=== PATIENT | male | born 1980 | race Caucasian/White ===

== ENCOUNTER 2016-11-24 19:24 | Emergency (ER) | payer OTHER ==
[~2016-11-24] VITALS: Ht 175.3 cm; Wt 99.8 kg
[~2016-11-24 19:24] MED LIST: ALPRAZOLAM0.5 MG PO; AZITHROMYCIN500 MG PO; BACTRIM DS TAB1 EACH PO; BENZTROPINE ME0.5 MG PO; BENZTROPINE MESY1 MG PO; BUSPIRONE HCL10 MG PO; CEPHALEXIN500 MG PO; CHLORPROMAZINE100 MG PO; CIPRO500 MG PO; CIPROFLOXACIN500 MG PO; CITALOPRAM HBR10 MG PO; CITALOPRAM HBR20 MG PO; CLONAZEPAM1 MG PO; CLONIDINE HCL0.2 MG PO; CLONIDINE HCL0.3 MG PO; COGENTIN1 MG/ML PO; DEPAKOTE500 MG PO; DIPHENHYDRAMINE50 MG PO; DIVALPROEX SOD500 MG PO; FIBER500 MG PO; FLUCONAZOLE150 MG PO; HYDROXYZINE HCL25 MG PO; IBUPROFEN600 MG PO; IBUPROFEN800 MG PO; KEFLEX500 MG PO; LATUDA40 MG PO; LEVAQUIN750 MG PO; LISINOPRIL5 MG PO; LITHIUM CARBON300 M1 PO; LITHIUM CARBON300 MG PO; MACROBID 100 M100 MG PO; NAPROXEN500 MG PO; OLANZAPINE10 MG PO; OMEPRAZOLE20 MG PO; PROZAC20 MG PO; QUDEXY XR25 MG PO; QUETIAPINE FUM100 MG PO; TOPAMAX100 MG PO; TOPIRAMATE ER25 MG PO; TRAMADOL HCL50 MG PO; TUMS200 MG PO; TYLENOL325 MG PO; ULTRAM50 MG PO; VITAMIN D250000 UNIT PO; XANAX0.5 MG PO; XARELTO15 MG; ZITHROMAX250 MG PO; ZYPREXA10 MG PO; [UNRECOGNIZED DRUG - OTHER] MC
== END 2016-11-25 01:07 | disposition home or self-care (01) ==
LOC: ED 19:24
DX: Z00.8 Encounter for other general examination (principal); I10 Essential (primary) hypertension; F31.9 Bipolar disorder, unspecified; F32.9 Major depressive disorder, single episode, unspecified; Z88.8 Allergy status to other drugs, medicaments and biological substances; Z79.899 Other long term (current) drug therapy
CPT/HCPCS: 36415; 80053; 80176; 81001; 84443; 85025; 99283; G0480

== ENCOUNTER 2016-12-03 13:02 | Emergency (ER) | payer OTHER ==
[~2016-12-03] VITALS: Ht 175.3 cm; Wt 99.8 kg
--- NOTE | 2016-12-04 07:15 | EKG ---
[facility] [address] [facility] [place], [place] [address] Signed Normal sinus rhythm Normal ECG When compared with ECG of 26-MAR-2016 18:13, No significant change was found Confirmed by OLGA LIDIA JIMENEZ MD ([id number]) on 12/04/2016 7:14:42 AM Electronically Signed By: OLGA LIDIA JIMENEZ MD 12/04/16 0715 PATIENT NAME: AALIYAH JASSO ION Electrocardiogram DATE OF : 78 PHYSICIAN: OLGA LIDIA JIMENEZ MD REPORT #: [id number] REPORT IS CONFIDENTIAL AND NOT TO BE RELEASED WITHOUT AUTHORIZATION
== END 2016-12-03 14:39 | disposition home or self-care (01) ==
LOC: ED 13:02
DX: R53.83 Other fatigue (principal); F22 Delusional disorders; I10 Essential (primary) hypertension; F31.9 Bipolar disorder, unspecified; F41.9 Anxiety disorder, unspecified; F25.9 Schizoaffective disorder, unspecified; F17.200 Nicotine dependence, unspecified, uncomplicated; Z88.1 Allergy status to other antibiotic agents; Z88.8 Allergy status to other drugs, medicaments and biological substances; Z88.2 Allergy status to sulfonamides; Z79.899 Other long term (current) drug therapy
CPT/HCPCS: 81001; 93005; 93010; 99283

== ENCOUNTER 2017-02-18 20:19 | Emergency (ER) | payer OTHER ==
[~2017-02-18] VITALS: Ht 175.3 cm; Wt 99.8 kg
--- OUTSIDE RECORDS SUMMARY | 2017-02-18 20:21 | XMS ---
Demographics + + + | Address | [address] [place] [address] | | | [facility] | | | [place] [address] | + + + | Preferred Language | Unknown | + + + | Marital Status | Unknown | + + + | Sikh Affiliation | Unknown | + + + | Race | Unknown | + + + | Ethnic Group | Unknown | + + + Author + + + | Author | [facility] | + + + | Organization | [facility] | + + + | Address | [address] | | | [place] [address] | + + + | Phone | | + + + Care Team Providers + + + + | Care Professor Of Voice Name | Role | Phone | + + + + Unavailable | Unavailable | + + + + PROBLEMS +---------+ + + +--------+ + + | Type | Condition | ICD9-CM | [id number] | Onset | Condition | SNOMED | | | | Code | Code | Dates | Status | Code | +---------+ + + +--------+ + + | Problem | Ventral | 553.20 | | | Active | [id number] | | | hernia | | | | | | | | without | | | | | | | | obstructio | | | | | | | | n or | | | | | | | | gangrene | | | | | | +---------+ + + +--------+ + + | Problem | Pulmonary | 415.19 | | | Active | [id number] | | | embolism | | | | | | +---------+ + + +--------+ + + | Problem | Epididymal | 608.89 | | | Active | [id number] | | | cyst | | | | | | +---------+ + + +--------+ + + | Problem | Blood in | 608.82 | | | Active | 53239411 | | | semen | | | | | | +---------+ + + +--------+ + + | Problem | History of | V13.09 | | | Active | [id number] | | | | | | | | | | | neurogenic | | | | | | | | bladder | | | | | | +---------+ + + +--------+ + + | Problem | H/O | V12.79 | | | Active | [id number] | | | ventral | | | | | | | | hernia | | | | | | +---------+ + + +--------+ + + | Problem | PRIAPISM | 607.3 | | | Active | [id number] | +---------+ + + +--------+ + + ALLERGIES + + + + +--------+ | Substance | Reaction | Event Type | Date | Status | + + + + +--------+ | Betadine | Unknown | Drug Allergy | Dec, | Active | + + + + +--------+ | lamotrigine | Buddy Bass | Non Drug | Dec, | Active | | | Syndrome | Allergy | | | + + + + +--------+ | Sulfa | Scratchy throat | Non Drug | Dec, | Active | | | | Allergy | | | + + + + +--------+ SOCIAL HISTORY No smoking Hx information available PLAN OF CARE + +---------+ | Activity | Details | + +---------+ +---+ | | +---+ + + + | Follow Up | as scheduled with urologist in 2 days | | | Reason:null | + + + VITAL SIGNS + + + + | Height | 69 in | 2016-12-22 | + + + + | Weight | 230.8 lbs | 2016-12-22 | + + + + | BMI | 34.08 kg/m2 | 2016-12-22 | + + + + | Temperature | 99.0 degrees Fahrenheit | 2016-12-22 | + + + + | Heart Rate | 88 /min | 2016-12-22 | + + + + | Blood pressure systolic | 124 mm Hg | 2016-12-22 | + + + + | Blood pressure diastolic | 86 mm Hg | 2016-12-22 | + + + + MEDICATIONS + + + + +--------+ + +--------+ | Medicati | Instruct | Dosage | Frequenc | Start | End Date | Duration | Status | | on | ions | | y | Date | | | | + + + + +--------+ + +--------+ | Zyprexa | Orally | 1 tablet | 24h | | | | Active | | 10 MG | Once a | | | | | | | | | day | | | | | | | + + + + +--------+ + +--------+ RESULTS No Results PROCEDURES + + + + + | Procedure | Date Ordered | Related Diagnosis | Body Site | + + + + + | Est Level II | Dec 22, 2016 | | | | Limited | | | | + + + + + IMMUNIZATIONS No Known Immunizations"
[2017-02-18] MEDS ORDERED: LATUDA20 MG PO (20:31)
[2017-02-18] MEDS ORDERED: VYVANSE20 MG PO (20:32)
[2017-02-18] MEDS ORDERED: KEFLEX500 MG PO (22:20)
== END 2017-02-18 22:54 | disposition home or self-care (01) ==
LOC: ED 20:19
PROC: 0T9B70Z Drainage of Bladder with Drainage Device, Via Natural or Artificial Opening (ICD-10-PCS; principal; 2017-02-18)
DX: T19.1XXA Foreign body in bladder, initial encounter (principal); F15.10 Other stimulant abuse, uncomplicated; I10 Essential (primary) hypertension; F31.9 Bipolar disorder, unspecified; F41.9 Anxiety disorder, unspecified; F25.9 Schizoaffective disorder, unspecified; F17.200 Nicotine dependence, unspecified, uncomplicated; Z88.1 Allergy status to other antibiotic agents; Z88.8 Allergy status to other drugs, medicaments and biological substances; Z88.2 Allergy status to sulfonamides; Z91.048 Other nonmedicinal substance allergy status; Z79.899 Other long term (current) drug therapy
CPT/HCPCS: 36415; 51702; 76775; 80053; 81001; 85025; 87077; 87088; 87186; 99284

== ENCOUNTER 2017-03-07 05:15 | Emergency (ER) | payer OTHER ==
[~2017-03-07] VITALS: Ht 175.3 cm; Wt 108.9 kg
[~2017-03-07 05:15] MED LIST changes: +LATUDA20 MG PO; +VYVANSE20 MG PO
== END 2017-03-07 06:17 | disposition home or self-care (01) ==
LOC: ED 05:15
DX: T23.622A Corrosion of second degree of single left finger (nail) except thumb, initial encounter (principal); T32.0 Corrosions involving less than 10% of body surface; I10 Essential (primary) hypertension; F31.9 Bipolar disorder, unspecified; F41.9 Anxiety disorder, unspecified; F20.9 Schizophrenia, unspecified; F17.200 Nicotine dependence, unspecified, uncomplicated; Z87.440 Personal history of urinary (tract) infections; Z88.1 Allergy status to other antibiotic agents; Z88.2 Allergy status to sulfonamides; Z88.8 Allergy status to other drugs, medicaments and biological substances; Z88.9 Allergy status to unspecified drugs, medicaments and biological substances; Z59.0 Homelessness; Z79.899 Other long term (current) drug therapy; Y93.89 Activity, other specified; Y99.0 Civilian activity done for income or pay
CPT/HCPCS: 99282

== ENCOUNTER 2017-06-21 01:58 | Emergency (ER) | payer OTHER ==
[~2017-06-21] VITALS: Ht 175.3 cm; Wt 108.9 kg
[2017-08-23] MEDS ORDERED: KEFLEX500 MG PO (19:56)
== END 2017-06-21 03:18 | disposition left against medical advice (07) ==
LOC: ED 01:58
DX: Z53.21 Procedure and treatment not carried out due to patient leaving prior to being seen by health care provider (principal)

== ENCOUNTER 2017-08-12 02:23 | Emergency (ER) | payer OTHER ==
[~2017-08-12] VITALS: Ht 175.3 cm; Wt 99.8 kg
[2017-08-12] MEDS ORDERED: LAMICTAL (GREE1 EACH PO (02:35)
[2017-08-23] MEDS ORDERED: KEFLEX500 MG PO (19:56)
== END 2017-08-12 02:59 | disposition left against medical advice (07) ==
LOC: ED 02:23
DX: Z53.21 Procedure and treatment not carried out due to patient leaving prior to being seen by health care provider (principal)

== ENCOUNTER 2017-11-09 21:06 | Emergency (ER) | payer OTHER ==
[~2017-11-09] VITALS: Ht 175.3 cm; Wt 99.8 kg
[~2017-11-09 21:06] MED LIST changes: +LAMICTAL (GREE1 EACH PO
[2017-11-09] MEDS ORDERED: CEPHALEXIN500 MG PO (22:33)
== END 2017-11-09 22:48 | disposition home or self-care (01) ==
LOC: ED 21:06
DX: N39.0 Urinary tract infection, site not specified (principal); I10 Essential (primary) hypertension; F17.200 Nicotine dependence, unspecified, uncomplicated; Z88.1 Allergy status to other antibiotic agents; Z88.2 Allergy status to sulfonamides; Z88.8 Allergy status to other drugs, medicaments and biological substances
CPT/HCPCS: 81001; 99283

== ENCOUNTER 2017-12-28 18:57 | Emergency (ER) | payer OTHER ==
[~2017-12-28] VITALS: Ht 175.3 cm; Wt 99.8 kg
--- OUTSIDE RECORDS SUMMARY | ~2017-12-28 | XMS | Clinical Summary ---
Demographics + + + | Address | [address] | | | [place] [address] | + + + | Home Phone | | + + + | Preferred Language | Unknown | + + + | Marital Status | | + + + | Latter-Day Affiliation | Unknown | + + + | Race | Unknown | + + + | Ethnic Group | Unknown | + + + Author + + + | Author | [facility] | | | and [place] | + + + | Organization | [facility] | | | and [place] | + + + | Address | Unknown | + + + | Phone | Unavailable | + + + Support + + +---------+ + | Name | Relationship | Address | Phone | + + +---------+ + | None,Listed Per | ECON | Unknown | | | Patient | | | | + + +---------+ + Care Team Providers + +------+ + | Care Car Cooper Name | Role | Phone | + +------+ + | Fam Donnelly MD | PP | | + +------+ + Allergies + + + + + + | Active Allergy | Reactions | Severity | Noted | Comments | | | | | Date | | + + + + + + | Ciprofloxacin | Other (See Comments) | Low | 06/28/19 | Cough | | | | | 15 | | + + + + + + | Doxycycline | Hives, Rash | Medium | 06/28/19 | | | | | | 15 | | + + + + + + | Lamotrigine | Other (See Comments) | High | 06/28/19 | Jean-Paul huntley | | | | | 15 | syndrome | + + + + + + Current Medications + + +-------+---------+------+------+-------+ | Prescription | Sig. | Disp. | Refills | Star | End | Statu | | | | | | t | Date | s | | | | | | Date | | | + + +-------+---------+------+------+-------+ | | Take 1 tablet by | | | | | Activ | | diphenhydrAMINE-acet | mouth nightly as | | | | | e | | aminophen (TYLENOL | needed. | | | | | | | PM EXTRA STRENGTH) | | | | | | | | 25-500 MG TABS | | | | | | | + + +-------+---------+------+------+-------+ | lurasidone | Take 60 mg by mouth | | | | | Activ | | (LATUDA) 60 mg | daily (with | | | | | e | | tablet | breakfast). | | | | | | + + +-------+---------+------+------+-------+ Active Problems + + + | Problem | Noted Date | + + + | Chronic hepatitis C without mention of hepatic coma | 07/06/2014 | + + + + + | Overview: patient reports genotype 1b. | | ICD-10 Record update | + + + + + | Anxiety and depression | 07/06/2014 | + + + + + | Overview: Requiring hospitalization. He was recently | | released. | + + Family History + + +------+ + | Medical History | Relation | Name | Comments | + + +------+ + | Colon cancer | Father | | | + + +------+ + | Heart attack | Father | | | + + +------+ + | Colon cancer | Paternal | | | | | Uncle | | | + + +------+ + + +------+ + + | Relation | Name | Status | Comments | + +------+ + + | Father | | | heart attack | | | | (Age | | | | | 54) | | + +------+ + + | Mother | | Alive | | + +------+ + + | Paternal Uncle | | | | + +------+ + + Social History + + + +--------+------+ | Tobacco Use | Types | Packs/Day | Years | Date | | | | | Used | | + + + +--------+------+ | Current Every Day | Cigarettes | 1 | 2 | | | Smoker | | | | | + + + +--------+------+ + +---+---+---+ | Smokeless Tobacco: | | | | | Never Used | | | | + +---+---+---+ + + | Tobacco Cessation: Ready to Quit: No; Counseling Given: Yes | + + + + +---------+ + | Alcohol Use | Drinks/We | oz/Week | Comments | | | ek | | | + + +---------+ + | No [...] + + + | Blood Pressure | 140/86 | 02/20/20171810 PDT | + + + + | Pulse | 102 | 02/20/20171938 PDT | + + + + | Temperature | 37.7 C (99.8 F) | 02/20/2017 1809 PDT | + + + + | Respiratory Rate | 20 | 02/20/20171808 PDT | + + + + | Oxygen Saturation | 94% | 02/20/20171938 PDT | + + + + | Inhaled Oxygen | - | - | | Concentration | | | + + + + | Weight | 104.3 kg (230 lb) | 02/20/20171808 PDT | + + + + | Height | 177.8 cm (5' 10") | 02/20/20171808 PDT | + + + + | Body Mass Index | 33 | 02/20/20171808 PDT | + + + + Plan of Treatment + + + + + | Health Maintenance | Due Date | Last Done | Comments | + + + + + | Vaccine: | | | | | Dtap/Tdap/Td (1 - | 9 | | | | Tdap) | | | | + + + + + | Vaccine: | | | | | Pneumococcal 19-64 | 9 | | | | (PPSV23 only) Medium | | | | | Risk (1 of 1 - | | | | | PPSV23) | | | | + + + + + | Vaccine: Influenza | | | | | (#1) | 8 | | | + + + + + Results Not on filefrom Last 3 Months Insurance + +--------+ +--------+ +---------+ | Payer | Benefi | Subscriber | Type | Phone | Address | | | t Plan | ID | | | | | | / | | | | | | | Group | | | | | + +--------+ +--------+ +---------+ | [employer] | MODA | [id number] | Medica | [id number] | | MEDICAID HMO | HEALTH | | id | [id number] | | | | MDCD | | | | | | | [place] | | | | | + +--------+ +--------+ +---------+ + +--------+ +--------+ + + | Guarantor Name | Accoun | Relation to | Date | Phone | Billing Address | | | t Type | Patient | of | | | | | | | | | | + +--------+ +--------+ + + | PENG JASSO | Person | Self [birth year] | Home: | [address] | | [place] | [place] | | 1980 | [phone] [place] [address] | | | linda | | | [phone] | | + +--------+ +--------+ + +
--- OUTSIDE RECORDS SUMMARY | ~2017-12-28 | XMS | Clinical Summary ---
Demographics + + + | Address | [address] | | | [place] [address] | + + + | Home Phone | | + + + | Preferred Language | Unknown | + + + | Marital Status | | + + + | Zoroastrian Affiliation | Unknown | + + + | Race | Unknown | + + + | Ethnic Group | Unknown | + + + Author + + + | Author | [facility] | | | and [place] | + + + | Organization | [facility] | | | and [...] Team Providers + +------+ + | Care Editor Index Name | Role | Phone | + [...] | [employer] | MODA | [id number] | Medica | [phone] | | MEDICAID HMO | HEALTH [...] | 1980 | [phone] [place] [address] | | | linda | | | [phone] | | + +--------+ +--------+ + +
[2017-12-28] MEDS ORDERED: KEFLEX500 MG PO (21:08)
== END 2017-12-28 21:57 | disposition home or self-care (01) ==
LOC: ED 18:57
PROC: BT40ZZZ Ultrasonography of Bladder (ICD-10-PCS; principal; 2017-12-28)
DX: N39.0 Urinary tract infection, site not specified (principal); I10 Essential (primary) hypertension; F17.200 Nicotine dependence, unspecified, uncomplicated; Z88.2 Allergy status to sulfonamides; Z88.1 Allergy status to other antibiotic agents; Z88.8 Allergy status to other drugs, medicaments and biological substances
CPT/HCPCS: 51798; 81001; 96372; 99283; J0696

== ENCOUNTER 2018-06-25 22:20 | Emergency (ER) | payer OTHER ==
[~2018-06-25] VITALS: Ht 175.3 cm; Wt 99.8 kg
--- OUTSIDE RECORDS SUMMARY | 2018-06-25 22:22 | XMS ---
PreManage Notification: AALIYAH JASSO Security Shingle Carrier Events 2 event(s) in the past 18 months Most recent security events: Elopement at [facility] 08/12/2017 02:23 - Patient eloped before treatment completed. Details: LWBS Elopement at [facility] 06/21/2017 01:58 - Patient eloped before treatment completed. Details: LWBS CRITERIA MET - Group Notification - [facility] - Has Care Guidelines CARE PROVIDERS HARLEY JOSHI [facility] Current PHONE: [phone] [facility] Primary [facility] Current PHONE: [phone] Katie Norman Case or Station Mechanic Apprentice Current PHONE: [phone] [facility] Mental Health Provider 11/15/2016-Current HEALTH PHONE: [phone] Guidelines Source: [facility] Guidelines Date: 12/03/2016 Care Coordination: ENCOURAGE PATIENT TO USE PCP FOR FOLLOW UP AND NON-EMERGENT PROBLEMS. GIVE PATIENT THIS HEEL COMPRESSOR NAME AND NUMBER FOR HELP AND QUESTIONS. MARSHALL AMADOR TRAVELING FREIGHT AGENT [facility] [phone] Additional care guidelines exist for the following facilities: [facility] ( 01/27/2018 ) [facility] ( 05/12/2016 ) Care History Behavioral 12/03/2016 [facility] PT IS WORKING WITH [facility] -- ATTN: IVONNE DEXTER Medical/Surgical 11/03/2014 [facility] Smoker Methamphetamine abuse E.DJan VISIT COUNT (12 MO.) 5 [facility]. TOTAL 5 NOTE: Visits indicate total known visits. ED/UCC VISIT TRACKING (12 MO.) 06/25/2018 22:20 [facility] [place] TYPE: Emergency COMPLAINT: - CATH ISSUE 12/28/2017 18:57 [facility] [place] TYPE: Emergency COMPLAINT: - CATHETER ISSUES DIAGNOSES: - Allergy status to sulfonamides status - Urinary tract infection, site not specified - Allergy status to other drugs, medicaments and biological substances status - Nicotine dependence, unspecified, uncomplicated - Allergy status to other antibiotic agents status - Essential (primary) hypertension - Other specified disorders of penis 11/09/2017 21:07 [facility] [place] TYPE: Emergency COMPLAINT: - R FLANK PAIN DIAGNOSES: - Nicotine dependence, unspecified, uncomplicated - Allergy status to other drugs, medicaments and biological substances status - Essential (primary) hypertension - Allergy status to sulfonamides status - Unspecified abdominal pain - Urinary tract infection, site not specified - Allergy status to other antibiotic agents status 08/23/2017 17:30 [facility] [place] TYPE: Emergency COMPLAINT: - ABD PAIN DIAGNOSES: - Allergy status to other drugs, medicaments and biological substances status - Retention of urine, unspecified - Unspecified place in jail as the place of occurrence of the external cause - Allergy status to other antibiotic agents status - Allergy status to sulfonamides status - Nicotine dependence, unspecified, uncomplicated - Urinary tract infection, site not specified - Essential (primary) hypertension - Striking against or struck by other objects, initial encounter - Unspecified abdominal pain - Laceration without foreign body of other part of head, initial encounter - Other terminal worker (current) drug therapy 08/12/2017 02:23 [facility] [place] TYPE: Emergency COMPLAINT: - URINARY PROBLEMS DIAGNOSES: - Procedure and treatment not carried out due to patient leaving prior to being seen by health care provider INPATIENT VISIT TRACKING (12 MO.) No inpatient visits to display in this time frame [id number]
[2018-06-26] MEDS ORDERED: CIPRO500 MG PO (00:09)
== END 2018-06-26 00:20 | disposition home or self-care (01) ==
LOC: ED 22:20
PROC: 0T9B70Z Drainage of Bladder with Drainage Device, Via Natural or Artificial Opening (ICD-10-PCS; principal; 2018-06-26)
DX: N36.8 Other specified disorders of urethra (principal); N45.3 Epididymo-orchitis; I10 Essential (primary) hypertension; F31.9 Bipolar disorder, unspecified; F20.9 Schizophrenia, unspecified; F41.9 Anxiety disorder, unspecified; F17.200 Nicotine dependence, unspecified, uncomplicated; Z88.1 Allergy status to other antibiotic agents; Z88.2 Allergy status to sulfonamides; Z91.09 Other allergy status, other than to drugs and biological substances; Z91.048 Other nonmedicinal substance allergy status
CPT/HCPCS: 51702; 76870; 81001; 99284-25

== ENCOUNTER 2018-10-01 07:43 | Emergency (ER) | payer OTHER ==
--- OUTSIDE RECORDS SUMMARY | ~2018-10-01 | XMS | Clinical Summary ---
Demographics + + + | Address | [address] | | | [place] [address] | + + + | Home Phone | | + + + | Preferred Language | Unknown | + + + | Marital Status | | + + + | Protestant Affiliation | Unknown | + + + | Race | Unknown | + + + | Ethnic Group | Unknown | + + + Author + + + | Author | [facility] | | | and [place] | + + + | Organization | [facility] | | | and [...] Team Providers + +------+ + | Care Turbo Operator Name | Role | Phone | [...] | [employer] | MODA | [id number] | 06/22/19 | [phone] | | Medica [...] | 1981 | [phone] | [place] [address] | | | linda | | | 3 (Home) | | + +--------+ +--------+ + + Advance Directives Patient has advance care planning documents on file. For more information, please [facility] [place] [address]
--- OUTSIDE RECORDS SUMMARY | ~2018-10-01 | XMS | Clinical Summary ---
Demographics + + + | Address | [address] | | | [place] [address] | + + + | Home Phone | | + + + | Preferred Language | Unknown | + + + | Marital Status | | + + + | Christian Affiliation | Unknown | + + + | Race | Unknown | + + + | Ethnic Group | Unknown | + + + Author + + + | Author | [facility] | | | and [place] | + + + | Organization | [facility] | | | [...] + +------+ + | Care Director Of Regional Sales Name | Role | Phone | + [...] | [employer] | MODA | [id number] | 06/22/19 | [phone] | | Medica [...] | 1981 | [phone] | [place] [address] | | | linda | | | 3 (Home) | | + +--------+ +--------+ + + Advance Directives Patient has advance care planning documents on file. For more information, please [facility] [place] [address]
--- OUTSIDE RECORDS SUMMARY | 2018-10-01 07:46 | XMS ---
PreManage Notification: AALIYAH JASSO Security Sql Database Administrator Events 2 event(s) in the past 18 months Most recent security events: Elopement at [facility] 08/12/2017 02:23 - Patient eloped before treatment completed. Details: LWBS Elopement at [facility] 06/21/2017 01:58 - Patient eloped before treatment completed. Details: LWBS CRITERIA MET - Group Notification - [facility] - Has Care Guidelines CARE PROVIDERS HARLEY JOSHI [facility] Current PHONE: [phone] [facility] DAVEN[facility] Primary Care Current PHONE: [phone] Katie Norman Case or Brake Repair Supervisor Current PHONE: [phone] [facility] MENTAL Mental Health Provider 11/15/2016-Current HEALTH PHONE: [phone] Guidelines Source: [facility] Guidelines Date: 12/03/2016 Care Coordination: ENCOURAGE PATIENT TO USE PCP FOR FOLLOW UP AND NON-EMERGENT PROBLEMS. GIVE PATIENT THIS CUSTODIAL FOREMAN NAME AND NUMBER FOR HELP AND QUESTIONS. MARSHALL AMADOR BOOKKEEPING ASSISTANT [facility] [phone] Additional care guidelines exist for the following facilities: [facility] ( 01/27/2018 ) [facility] ( 05/12/2016 ) Care History Behavioral 12/03/2016 [facility] PT IS WORKING WITH [facility] -- ATTN: IVONNE DEXTER Medical/Surgical 11/03/2014 [facility] Smoker Methamphetamine abuse E.DJan VISIT COUNT (12 MO.) [facility] NOTE: Visits indicate total known visits. ED/UCC VISIT TRACKING (12 MO.) 10/01/2018 07:44 [facility] [place] TYPE: Emergency COMPLAINT: - COUGHING 06/25/2018 22:20 [facility] [place] TYPE: Emergency COMPLAINT: - CATH ISSUE DIAGNOSES: - Schizophrenia, unspecified - Allergy status to other antibiotic agents status - Anxiety disorder, unspecified - Other specified disorders of urethra - Nicotine dependence, unspecified, uncomplicated - Dysuria - Other nonmedicinal substance allergy status - Bipolar disorder, unspecified - Allergy status to sulfonamides status - Other allergy status, other than to drugs and biological substances - Essential (primary) hypertension - Epididymo-orchitis 12/28/2017 18:57 [facility] TYPE: Emergency COMPLAINT: - CATHETER ISSUES DIAGNOSES: - Allergy status to sulfonamides status - Urinary tract infection, site not specified - Allergy status to other drugs, medicaments and biological substances status - Nicotine dependence, unspecified, uncomplicated - Allergy status to other antibiotic agents status - Essential (primary) hypertension - Other specified disorders of penis 12/25/2017 00:[facility] TYPE: Emergency DIAGNOSES: - Urinary tract infection, site not specified 11/09/2017 21:07 [facility] TYPE: Emergency COMPLAINT: - R FLANK PAIN DIAGNOSES: - Nicotine dependence, unspecified, uncomplicated - Allergy status to other drugs, medicaments and biological substances status - Essential (primary) hypertension - Allergy status to sulfonamides status - Unspecified abdominal pain - Urinary tract infection, site not specified - Allergy status to other antibiotic agents status INPATIENT VISIT TRACKING (12 MO.) No inpatient visits to display in this time frame [id number]
== END 2018-10-01 07:50 | disposition left against medical advice (07) ==
LOC: ED 07:43
DX: R05 Cough (principal); Z53.21 Procedure and treatment not carried out due to patient leaving prior to being seen by health care provider

== ENCOUNTER 2018-10-13 16:38 | Emergency (ER) | payer OTHER ==
[~2018-10-13] VITALS: Ht 175.3 cm; Wt 99.8 kg
--- OUTSIDE RECORDS SUMMARY | ~2018-10-13 | XMS | Clinical Summary ---
Demographics + + + | Address | [address] | | | [place] [address] | + + + | Home Phone | | + + + | Preferred Language | Unknown | + + + | Marital Status | | + + + | Oriental Orthodox Affiliation | Unknown | + + + | Race | Unknown | + + + | Ethnic Group | Unknown | + + + Author + + + | Author | [facility] | | | and [place] | + + + | Organization | [facility] | | [...] Team Providers + +------+ + | Care Straight Cutter Name | Role | Phone | [...] + + +---------+------+------+-------+ | | Take 1 tablet by | | 0 | | | Activ | | diphenhydrAMINE-acet | mouth nightly as | | | | | e | | aminophen (TYLENOL | needed. | | | | | | | PM EXTRA STRENGTH) | | | | | | | | 25-500 MG TABS | | | | | | | + + + +---------+------+------+-------+ | lurasidone | Take 60 mg by mouth | | 0 | | | Activ | | (LATUDA) [...] Temperature | 37.7 C (99.8 F) | 02/20/20171808 PDT | + + + [...] Vaccine: Influenza | | | | | (Season Ended) | 9 | | | + + + + + Results Not on filefrom Last 3 Months Insurance + +--------+ +--------+ +---------+--------+ | Payer | Benefi | Subscriber | Effect | Phone | Address | Type | | | t Plan | ID | herbert | | | | | | / | | Dates | | | | | | Group | | | | | | + +--------+ +--------+ +---------+--------+ | [employer] | MODA | [id number] | 06/22/19 | [phone] | | Medica | | MEDICAID HMO | HEALTH | | 15-Pre | 1 | | id | | | [place]CD | | sent | | | | | | [place] | | | | | | + +--------+ +--------+ +---------+--------+ + +--------+ +--------+ + + | Guarantor Name | Accoun | Relation to | Date | Phone | Billing Address | | | t Type | Patient | of | | | | | | | | | | + +--------+ +--------+ + + | Peng Richardson | Person | Self | [birth year] | [address] | | [place] | felix/Alex | | 1981 | [phone] | [place] [address] | | | linda | | | 3 (Home) | | + +--------+ +--------+ + + Advance Directives Patient has advance care planning documents on file. For more information, please [facility] [address]
--- OUTSIDE RECORDS SUMMARY | ~2018-10-13 | XMS | Clinical Summary ---
Demographics + + + | Address | [address] | | | [place] [address] | + + + | Home Phone | | + + + | Preferred Language | Unknown | + + + | Marital Status | | + + + | Pentecostal Affiliation | Unknown | + + + | Race | Unknown | + + + | Ethnic Group | Unknown | + + + Author + + + | Author | [facility] | | | and Dioniana | + + + | Organization | [facility] | | | [...] Team Providers + +------+ + | Care Tree Inspector Name | Role | Phone | [...] | [employer] | [facility] | [id number] | 06/22/19 | [phone] | | Medica [...] | + +--------+ +--------+ + + | Pegn Richardson | Person | Self | [birth year] | [address] | | Steven | felix/Alex | | 1981 | [phone] | [place] [address] | | | linda | | | 3 (Home) | | + +--------+ +--------+ + + Advance Directives Patient has advance care planning documents on file. For more information, please contact:[facility] [place] [address]
--- OUTSIDE RECORDS SUMMARY | 2018-10-13 16:40 | XMS ---
PreManage Notification: AALIYAH JASSO Security Biochemistry Technician Events 3 event(s) in the past 18 months Most recent security events: Elopement at [facility] 10/01/2018 07:44 - Other Details: PATIENT LWOBS. Elopement at [facility] 08/12/2017 02:23 - Patient eloped before treatment completed. Details: LWBS Elopement at [facility] 06/21/2017 01:58 - Patient eloped before treatment completed. Details: LWBS CRITERIA MET - Group Notification - - Has Care Guidelines - - 2 Visits in 30 Days CARE PROVIDERS HARLEY JOSHI [facility] Current PHONE: [phone] [facility] DAVEN[facility] Primary Care Current PHONE: [phone] Katie Norman Case or Entry Level Assistant Manager Current PHONE: [phone] [facility] MENTAL Mental Health Provider 11/15/2016-Current HEALTH PHONE: [phone] Guidelines Source: [facility] Guidelines Date: 12/03/2016 Care Coordination: ENCOURAGE PATIENT TO USE PCP FOR FOLLOW UP AND NON-EMERGENT PROBLEMS. GIVE PATIENT THIS TEACHERS ASSISTANT NAME AND NUMBER FOR HELP AND QUESTIONS. MARSHALL AMADOR BANKING SUPERVISOR [facility] [phone] Additional care guidelines exist for the following facilities: [facility] ( 01/27/2018 ) [facility] ( 05/12/2016 ) Care History Behavioral 12/03/2016 [facility] PT IS WORKING WITH [facility] -- ATTN: IVONNE DEXTER Medical/Surgical 11/03/2014 [facility] Smoker Methamphetamine abuse E.DJan VISIT COUNT (12 MO.) [address] [facility] NOTE: Visits indicate total known visits. ED/UCC VISIT TRACKING (12 MO.) 10/13/2018 16:39 [facility] [place] TYPE: Emergency COMPLAINT: - LEG SWELLING,URINE PROBLEM 10/01/2018 07:44 [facility] [place] TYPE: Emergency COMPLAINT: - COUGHING/LWOBS 0745 DIAGNOSES: - Procedure and treatment not carried out due to patient leaving prior to being seen by health care provider - Cough 06/25/2018 22:20 [facility] [place] TYPE: Emergency [...] (primary) hypertension - Epididymo-orchitis 12/28/2017 18:57 [facility] [place] TYPE: Emergency COMPLAINT: - CATHETER ISSUES DIAGNOSES: - Allergy status to sulfonamides status - Urinary tract infection, site not specified - Allergy status to other drugs, medicaments and biological substances status - Nicotine dependence, unspecified, uncomplicated - Allergy status to other antibiotic agents status - Essential (primary) hypertension - Other specified disorders of penis 12/25/2017 00:46 [facility] [place] ([place]) TYPE: Emergency DIAGNOSES: - Urinary tract infection, site not specified 11/09/2017 21:[address] [facility] [place] TYPE: Emergency COMPLAINT: - R FLANK [...] visits to display in this time frame [id number]
== END 2018-10-13 17:45 | disposition home or self-care (01) ==
LOC: ED 16:38
DX: I87.8 Other specified disorders of veins (principal); I10 Essential (primary) hypertension; F17.200 Nicotine dependence, unspecified, uncomplicated; Z88.1 Allergy status to other antibiotic agents; Z88.2 Allergy status to sulfonamides; Z88.8 Allergy status to other drugs, medicaments and biological substances; Z91.048 Other nonmedicinal substance allergy status
CPT/HCPCS: 93970; 99283-25

== ENCOUNTER 2018-10-30 02:56 | Emergency (ER) | payer OTHER ==
[~2018-10-30] VITALS: Ht 175.3 cm; Wt 104.3 kg
--- OUTSIDE RECORDS SUMMARY | 2018-10-30 02:58 | XMS ---
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 Elopement at [facility] 08/12/2017 02:23 - Patient eloped before treatment completed. Details: LWBS Elopement at [facility] 06/21/2017 01:58 - Patient eloped before treatment completed. Details: LWBS CRITERIA MET - Group Notification - [facility] - Has Care Guidelines - [facility] - 2 Visits in 30 Days CARE PROVIDERS HARLEY JOSHI [facility] Current PHONE: [phone] ROCKY DAVENPORT Primary [facility] Current PHONE: [phone] Katie Norman Case or Oceanographer Geological Current PHONE: [phone] [facility] MENTAL Mental Health Provider 11/15/2016-Current HEALTH PHONE: [phone] Guidelines Source: [facility] Guidelines Date: 12/03/2016 Care Coordination: ENCOURAGE PATIENT TO USE PCP FOR FOLLOW UP AND NON-EMERGENT PROBLEMS. GIVE PATIENT THIS PORCELAIN ENAMELING SUPERVISOR NAME AND NUMBER FOR HELP AND QUESTIONS. MARSHALL AMADOR UTILITY [facility] [phone] Additional care guidelines exist for the following facilities: [facility] ( 01/27/2018 ) [facility] ( 05/12/2016 ) Care History Behavioral 12/03/2016 [facility] PT IS WORKING WITH [facility] -- ATTN: IVONNE DEXTER Medical/Surgical 10/14/2018 [facility] - PATIENT CURRENTLY WORKING WITH [employer]. 11/03/2014 [facility] Smoker Methamphetamine abuse [facility]. [facility] MO.) [facility] TOTAL 7 NOTE: Visits indicate total known visits. ED/UCC VISIT TRACKING (12 MO.) 10/30/2018 02:57 [facility] [place] TYPE: Emergency COMPLAINT: - POSS UTI 10/13/2018 16:39 [facility] [place] TYPE: Emergency COMPLAINT: - LEG SWELLING,URINE PROBLEM DIAGNOSES: - Essential (primary) hypertension - Nicotine dependence, unspecified, uncomplicated - Allergy status to other drugs, medicaments and biological substances status - Other nonmedicinal substance allergy status - Allergy status to other antibiotic agents status - Allergy status to sulfonamides status - Other specified disorders of veins - Other specified soft tissue disorders 10/01/2018 07:44 [facility] [place] TYPE: Emergency [...] Other specified disorders of penis 12/25/2017 00:46 [facility] Elie Luna ID (ID) [...] visits to display in this time frame [email or web address]
[2018-10-30] MEDS ORDERED: CEPHALEXIN500 MG PO (04:36)
== END 2018-10-30 04:49 | disposition home or self-care (01) ==
LOC: ED 02:56
PROC: 0T9B70Z Drainage of Bladder with Drainage Device, Via Natural or Artificial Opening (ICD-10-PCS; principal; 2018-10-30)
DX: N39.0 Urinary tract infection, site not specified (principal); I10 Essential (primary) hypertension; F17.200 Nicotine dependence, unspecified, uncomplicated; Z88.1 Allergy status to other antibiotic agents; Z88.2 Allergy status to sulfonamides; Z91.048 Other nonmedicinal substance allergy status
CPT/HCPCS: 51701; 81001; 99283-25

== ENCOUNTER 2019-01-17 18:31 | Emergency (ER) | payer OTHER ==
[~2019-01-17] VITALS: Ht 175.3 cm; Wt 104.3 kg
[~2019-01-17 18:31] MED LIST changes: +ELIMITE60 GM TOP
== END 2019-01-17 19:30 | disposition left against medical advice (07) ==
LOC: ED 18:31
DX: Z53.21 Procedure and treatment not carried out due to patient leaving prior to being seen by health care provider (principal)

== ENCOUNTER 2019-02-14 13:24 | Emergency (ER) | payer OTHER ==
[~2019-02-14] VITALS: Ht 177.8 cm; Wt 104.3 kg
--- OUTSIDE RECORDS SUMMARY | ~2019-02-14 | XMS | Encounter Summary ---
Demographics + + + | Address | [address] | | | [place] [address] | + + + | Home Phone | | + + + | Preferred Language | Unknown | + + + | Marital Status | Single | + + + | Spiritism Affiliation | NON | + + + | Race | White | + + + | Ethnic Group | Not or | + + + Author + + + | Author | [facility] | + + + | Organization | [facility] | + + + | Address | Unknown | + + + | Phone | Unavailable | + + + Support + + +---------+ + | Name | Relationship | Address | Phone | + + +---------+ + | Per None, PT | ECON | Unknown | Unavailable | + + +---------+ + Care Team Providers + +------+ + | Care Pneumatic Deicer Inspector Name | Role | Phone | + +------+ + PCP | Unavailable | + +------+ + Reason for Visit + + + | Reason | Comments | + + + | Radiology Results | | + + + Encounter Details +--------+ + + + + | Date | Type | Department | Care Team | Description | +--------+ + + + + | 06/30/ | Telephone | [facility] | Jeancarlos Marley MD | Radiology Results | | 2007 | | Center [address] | [address] | | | | | Ave Mailcode: CH6D | [place], [place] | | | | | [facility] | [address] | | | | | and Healing, | [phone] | | | | | [facility] | | | | | | Floor [place], [place] | | | | | | [address] | | | | | | [phone] | | | +--------+ + + + [...]
--- OUTSIDE RECORDS SUMMARY | ~2019-02-14 | XMS | Encounter Summary ---
Demographics + + + | Address | [address] | | | [place] [address] | + + + | Home Phone | | + + + | Preferred Language | Unknown | + + + | Marital Status | Single | + + + | Restoration Affiliation | NON | + + + | Race | White | + + + | Ethnic Group | Not or | + + + Author + + + | Author | [facility] | + + + | Organization | [facility] | + + + | Address | Unknown | + + + | Phone | Unavailable | + + + Support + + +---------+ + | Name | Relationship | Address | Phone | + + +---------+ + | Per None, PT | ECON | Unknown | Unavailable | + + +---------+ + Care Team Providers + +------+ + | Care Fire Eater Name | Role | Phone | + +------+ + | Lakesha River | PCP | | + +------+ + Reason for Visit + + + | Reason | Comments | + + + | Abdominal pain | | + + + Encounter Details +--------+ + + + + | Date | Type | Department | Care Team | Description | +--------+ + + + + | 08/07/ | Telephone | [facility] | Jeancarlos Marley MD | Abdominal pain | | 2008 | | [place] [address] [address] | [address] | | | | | [address] | [place], [place] | | | | | Mailcode: OC8D | [address] | | | | | [facility] | [phone] | | | | | and [place], | | | | | | [address] | | | | | | [place], [place] | | | | | | [address] | | | | | | [phone] | | | +--------+ + + + [...]
--- OUTSIDE RECORDS SUMMARY | ~2019-02-14 | XMS | Encounter Summary ---
Demographics + + + | Address | [address] | | | [place] [address] | + + + | Home Phone | | + + + | Preferred Language | Unknown | + + + | Marital Status | Single | + + + | Buddhist Affiliation | NON | + + + [...] Team Providers + +------+ + | Care Solid Center Winder Name | Role | Phone | + +------+ + | Jae Robin MD | PCP | | + +------+ + Reason for Visit + + + | Reason | Comments | + + + | Follow-up visit | | + + + Office Visit - E/M Services (Routine) +--------+ + + + + + [...] Required | | hepatitis C | [address] | [address] | | | | | without | [address] | Ave | | | | | mention of | [place], | [place], [place] | | | | | hepatic coma | [place] [address] | [address] | | | | | Procedures | Phone: | Phone: | | | | | CONSULT TO | [phone] | [phone] | | | | | HEPATOLOGY | Fax: | Fax: | | | | | | [phone] | [phone] | +--------+ + + + + + Encounter Details +--------+---------+ + + + | Date | Type | Department | Care Team | Description | +--------+---------+ + + + | 01/25/ | Office | [facility] | Jeancarlos Rich MD | Chronic hepatitis C | | 2011 | Visit | Center at [facility] [address] | [address] | without mention of | | | | [address] | [place], [place] | hepatic coma | | | | Mailcode: OC8D | [address] | (Primary Dx) | | | | [facility] | [phone] | | | | | and Healing, | | | | | | [address] | | | | | | [place], [place] | | | | | | [address] | | | | | | [phone] | | | +--------+---------+ + + + [...] + + + | Blood Pressure | 136/82 | 01/26/2012 11:25 AM | | | | | PDT | | + + + + + | Pulse | 93 | 01/26/2012 11:25 AM | | | | | PDT | | + + + + + | Temperature | 36.7 C (98.1 F) | 01/26/2012 11:25 AM | | | | | PDT | | + + + + + | Respiratory Rate | 19 | 01/26/2012 11:25 AM | | | | | PDT | | + + + + + | Oxygen Saturation | - | - | | + + + + + | Inhaled Oxygen | - | - | | | Concentration | | | | + + + + + | Weight | 134.9 kg (297 lb 8 | 01/26/2012 11:25 AM | | | | oz) | PDT | | + + + + + | Height | 175.3 cm (5' 9") | 01/26/2012 11:25 AM | | | | | PDT | | + + + + + | Body Mass Index | 43.93 | 01/26/2012 11:25 AM | | | | | PDT | | + + + + + documented in this encounter Progress Notes Jeancarlos Rich MD - 01/26/2012 11:53 AM PDTFormatting of this note might be different from xander bruner. HEPATOLOGY NEW PATIENT VISIT Last seen over 3yrs ago Referral provider: Denise Mckeon MD and Jae Robin MD Reason for consult: HCV infeciton Diagnoses: 1) Hep C thought to be 2/2 ivdu with first time use of iv drugs in 2002: 1.1) No evidence of cirrhosis. Normal ultrasound 12/23 and normal platelet count 1.2) most recent HCV count 2.08 IU/Ml from 04/23. Genotype 1b 1.3) Likely infected in 2002 1.4)Obese 1.5) committed to [facility] in [place] until 2014 1.6 ) no liver biopsy to date 1.7) vaccinated for HAV/HBV in the past PAST MEDICAL HISTORY 2) HTN 3) Schizophrenia and anxiety:now committed to [facility] 4) obesity Current Outpatient Prescriptions Medication Sig acetaminophen 650 mg Oral Tablet Take 650 mg by mouth every eight hours as needed. Alum-Mag Hydroxide-Simeth 400-400-30 mg/5 mL Oral Suspension Take by mouth every four hours as needed. benztropine 2 mg Oral Tablet Take 2 mg by mouth every six hours as needed. busPIRone 5 mg Oral Tablet take 1 tablet (5 mg) by oral route 2 times per day Calcium Carbonate 500 mg Oral Capsule Take 500 mg by mouth every six hours as needed. cephALEXin 500 mg Oral Capsule Take 500 mg by mouth once daily. chlorproMAZINE 100 mg Oral Tablet take 1 tablet (100 mg) by oral route once daily Cholecalciferol, Vitamin D3, (VITAMIN D-3) 2,000 unit Oral Capsule Take by mouth once daily. Cranberry Extract (CRANBERRY) 450 mg Oral Tablet Take by mouth two times daily. DIVALPROEX SODIUM (DIVALPROEX ORAL) Take 1,000 mg by mouth once daily at bedtime. Haloperidol Lactate 5 mg/mL Intramuscular Syringe Inject into the muscle (IM) every si x hours as needed. HYDROcodone-acetaminophen 5-500 mg Oral Tablet Take 1 Tab by mouth every four hours as needed. Not to exceed 6 tablets per any 24 hour period. (Not to exceed 3250 mg of acetaminop hen from all products per 24 hour period.) lidocaine 20 mg/mL (2 %) Injection Solution by Infiltration route as needed. LIOTHYRONINE SODIUM (LIOTHYRONINE ORAL) Take 10 mg by mouth once daily. lisinopril 20 mg Oral Tablet take 1 tablet (20 mg) by oral route once daily lithium carbonate 300 mg Oral Capsule Take 300 mg by mouth once daily at bedtime. LORAZEPAM (ATIVAN ORAL) Take by mouth. LYTES/CARBOXYMETHYLCELLULOSE (SALIVA SUBSTITUTE MM) by Mucous Membrane route every two hours as needed. MIRTAZAPINE (REMERON ORAL) Take by mouth. olanzapine 10 mg Intramuscular Recon Soln Inject 10 mg into the muscle (IM) as needed. olanzapine 5 mg Oral Tablet Take 5 mg by mouth once daily at bedtime. OMEPRAZOLE (PRILOSEC ORAL) Take by mouth. omeprazole 20 mg Oral Capsule, Delayed Release(E.C.) Take 20 mg by mouth two times sammy y. oxybutynin (DITROPAN) 5 mg Oral Tablet Take 1 Tab by mouth two times daily. oxyCODONE (immediate release) 5 mg Tab 5 mg, acetaminophen 325 mg Tab 325 mg Take 2 Dos e(s) by mouth every four hours as needed. paroxetine 20 mg Oral Tablet take 1 tablet (20 mg) by oral route once daily prazosin 1 mg Oral Capsule Take 1 mg by mouth once daily. promethazine 25 mg Oral Tablet Take 25 mg by mouth as needed. Psyllium Oral Powder Take by mouth as needed. Simethicone 80 mg Oral Tablet Take by mouth three times daily. traMADol 25 mg Oral Tablet Take by mouth every six hours as needed. trimethoprim-sulfamethoxazole 160-800 mg Oral Tablet Take 1 Tab by mouth two times sammy y. zolpidem 10 mg Oral Tablet Take 10 mg by mouth once daily at bedtime as needed. Allergy: No Known Allergies Subjective: Mr. Richardson is seen in Hepatology clinic for evaluation of Chronic Hepatitis C . He states that his current symptoms are fatigue. He denies fluid accumulation in feet/ankles, fluid accumulation in abdomen, blood in bowel movements or black tarry bm's and memory or concentration changes. Review of Systems: All other systems negative. Social History: Currently smoking: no Current alcohol use: no Currently employed: no Good social support: no Objective: BP 136/82 | Pulse 93 | Temp (Src) 36.7 C (98.1 F) (Oral) | RR 19 | Ht 1.753 m (5' 9") | Wt 134.945 kg (297 lb 8 oz) | BMI 43.93 kg/(m^2) General: Alert, NAD. HEENT: Normal, sclerae anicteric. Respiration: Normal CTAB, and good air exchange. Cardiac: Regular rate and rhythm. Abdomen: Soft, non-distended, normal bowel sounds, no hepatosplenomegaly, no fluid wave, no other masses noted. Neuro: Normal, alert with no asterixis. Psych: Normal speech pattern and thought process linear. Extremities: Normal, no edema, or skin discolorations. Skin: Warm and dry without rashes, lesions or spider hemangomota. Laboratory Data: Data/Labs from referral packet Assessment/Plan: Have not seen patient for over 3 yrs. In the interim he has been committed to the [facility] facility. At this time he has no clinical evidence of cirrhosis. Unfortunat birgit the current HCV treatment regimen still includes interferon, which will exacerbate any u nderlying psychiatric issues. Unless he can be safely watched and protected in the [facility], there will not be a way to use interferon-based therapy. It would be unreasonable to consider a liver biopsy (can be done in [place] thru radiology, ie ultrasound guided) to asses s degree of liver fibrosis, before even contemplating any therapy. Recommend thru Drs. Robin/Mike patients get the followin. CMP, CBC, plts, diff, INR 2. Decide if patient can be treated safely in [facility] with interferon regimen. If possible, would recommend liver biopsy (in [place]) and then will results in hand return to [facility]. 3) If interferon-based therapy is deemed too risky in the [facility], then should wa it until interferon-free regimens are available, which should be in 5 yrs or so. 4) RTC in 3 months Counseling Time: I spent more than 45 minutes with the patient. Greater than 50% of the ti me was spent in education and counseling the patient regarding the natural history and progn osis of their disease.. JEANCARLOS RICH MD documented in this encou nter Plan of Treatment Not on filedocumented as of this encounter Visit Diagnoses + + | Diagnosis | + + | Chronic hepatitis C without mention of hepatic coma - Primary | + + documented in this encounter
--- OUTSIDE RECORDS SUMMARY | ~2019-02-14 | XMS | Encounter Summary ---
Demographics + + + | Address | [address] | | | [place] [address] | + + + | Home Phone | | + + + | Preferred Language | Unknown | + + + | Marital Status | Single | + + + | Jew Affiliation | NON | + + + | Race | White | + + + | Ethnic Group | Not or | + + + Author + + + | Author | [facility] | + + + | Organization | [facility] | + + + | Address | Unknown | + + + | Phone | Unavailable | + + + Support + + +---------+ + | Name | Relationship | Address | Phone | + + +---------+ + | Per None, PT | ECON | Unknown | Unavailable | + + +---------+ + Care Team Providers + +------+ + | Care Forward Air Controller/Air Officer Name | Role | Phone | + +------+ + | Jae Robin MD | PCP | | + +------+ + Reason for Visit + + + | Reason | Comments | + + + | Appointment | | + + + Encounter Details +--------+ + + + + | Date | Type | Department | Care Team | Description | +--------+ + + + + | 01/09/ | Telephone | Urology Adult | Wang Canchola MD | Appointment | | 2009 | | [address] | [address] | | | | | Mailcode: CH10U | [place], [place] | | | | | [facility] | [address] | | | | | and Healing, | [phone] | | | | | | | | | | | Floor [place], [place] | | | | | | [address] | | | | | | [phone] | | | +--------+ + + + [...]
--- OUTSIDE RECORDS SUMMARY | ~2019-02-14 | XMS | Encounter Summary ---
Demographics + + + | Address | [address] | | | [place] [address] | + + + | Home Phone | | + + + | Preferred Language | Unknown | + + + | Marital Status | Single | + + + | Religion Affiliation | NON | + + + | Race | White | + + + | Ethnic Group | Not or | + + + Author + + + | Author | [facility] | + + + | Organization | [facility] | + + + | Address | Unknown | + + + | Phone | Unavailable | + + + Support + + +---------+ + | Name | Relationship | Address | Phone | + + +---------+ + | Per None, PT | ECON | Unknown | Unavailable | + + +---------+ + Care Team Providers + +------+ + | Care Collator Hand Name | Role | Phone | + +------+ + | Jae Robin MD | PCP | | + +------+ + Reason for Visit + + + | Reason | Comments | + + + | Follow-up encounter | | + + + | Post Op | | + + + Global Period - Transplant (Routine) +--------+--------+ + + + + | Status | Reason | Specialty | Diagnoses / | Referred By | Referred To | | | | | Procedures | Contact | Contact | +--------+--------+ + + + + | Closed | | Urology | | No | Dos Uro | | | | | | Referring | General Chh1 | | | | | | Provider Per | [address] | | | | | | Patient NO | Ave | | | | | | REFERRING | Mailcode: | | | | | | PROVIDER PER | [address] [place] | | | | | | PT | for Health | | | | | | | and Healing, | | | | | | | [address], | | | | | | | 10th Floor | | | | | | | [place], [place] | | | | | | | [address] | | | | | | | Phone: | | | | | | | [phone] | | | | | | | Fax: | | | | | | | [phone] | +--------+--------+ + + + + Encounter Details +--------+---------+ + + + | Date | Type | Department | Care Team | Description | +--------+---------+ + + + | 02/26/ | Office | Urology Adult | Armand Ordonez MD | Urinary retention; | | 2010 | Visit | [address] | [address] | Cellulitis | | | | Mailcode: CH10U | [facility] [place] | | | | | [facility] | [address] | | | | | and Healing, | [phone] | | | | | [facility] | | | | | | Floor [place], [place] | | | | | | [address] | | | | | | [phone] | | | +--------+---------+ + + + [...] + + + | Blood Pressure | 122/81 | 02/26/2011 8:02 AM | | | | | PDT | | + + + + + | Pulse | 90 | 02/26/2011 8:02 AM | | | | | PDT [...] + + + + | Weight | 138.8 kg (306 lb) | 02/26/2011 8:02 AM | | | | | PDT | | + + + + + | Height | - | - | | + + + + + | Body Mass Index | 45.19 | 02/14/2011 7:00 AM | | | | | PDT | | + + + + + documented in this encounter Progress Notes Armand Ordonez MD - 02/26/2011 8:28 AM PDT12 days s/p open suprapubic cystostomy for chronometer tester 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 Has had ER visits for fevers up to 103. Is currently on ciprofloxacin for apparent wound infection according to outside ED visits. Currently afebrile, no more si gnificant drainage. Catheter draining well. BP 122/81 | Pulse 90 | Wt 138.801 kg (306 lb) NAD Wound with mild induration and erythema, especially superior aspect. Cystotomy site has opened slightly No active drainage No fluctuance. Wound probed, only mild bleeding evoked. Wound gently superficially packed with iodoform, good deal left out of wound for easy remov al/change [place] Nursing present and packing reviewed. A/P: Wound infection, improving significantly by reports. Recommend change ciprofloxacin to SMX/TMP DS BID x 2 weeks F/u as previously scheduled. documented in this encounter Plan of Treatment Not on filedocumented as of this encounter Visit Diagnoses + + | Diagnosis | + + | Urinary retention Retention of urine, unspecified | + + | Cellulitis Cellulitis and abscess of unspecified site | + + documented in this encounter"
--- OUTSIDE RECORDS SUMMARY | ~2019-02-14 | XMS | Encounter Summary ---
Demographics + + + | Address | [address] | | | [place] [address] | + + + | Home Phone [...] + + + | Author | [facility] | + + + | Organization | [facility] | + + + | Address | Unknown | + + + | Phone | Unavailable | + + + Support + + +---------+ + | Name | Relationship | Address | Phone | + + +---------+ + | Per None, PT | ECON | Unknown | Unavailable | + + +---------+ + Care Team Providers + +------+ + | Care Bobtail Driver Name | Role | Phone | + +------+ + PCP | Unavailable | + +------+ + Encounter Details +--------+ + + + + | Date | Type | Department | Care Team | Description | +--------+ + + + + | 12/27/ | Telephone | [facility] | Jeancarlos Marley MD | | | 2007 | | [place] [address] [address] | [address] | | | | [address] | [place], [place] | | | | | Mailcode: OC8D | [address] | | | | | [facility] | [phone] | | | | | and Healing, | | | | | | [address] | | | | | | [place], [place] | | | | | | [address] | | | | | | [phone] | | | +--------+ + + + [...]
--- OUTSIDE RECORDS SUMMARY | ~2019-02-14 | XMS | Encounter Summary ---
Demographics + + + | Address | [address] | | | [place] [address] | + + + | Home Phone | | + + + | Preferred Language | Unknown | + + + | Marital Status | Single | + + + | Jain Affiliation | NON | + + + | Race | White | + + + | Ethnic Group | Not or | + + + Author + + + | Author | [facility] | + + + | Organization | [facility] | + + + | Address | Unknown | + + + | Phone | Unavailable | + + + Support + + +---------+ + | Name | Relationship | Address | Phone | + + +---------+ + | Per None, PT | ECON | Unknown | Unavailable | + + +---------+ + Care Team Providers + +------+ + | Care Office Mail Clerk Name | Role | Phone | + [...] + + | 02/14/ | Hospital | [facility] [address] | Armand Ordonez MD | | | 2010 | Encounter | [address] | [address] | | | | | [address] | [place], [place] | | | | | [facility] | [address] | | | | | (MNP/[facility]) | [phone] | | | | | [place], [place] | | | | | | [address] | | | | | | [phone] | | | +--------+ + + + [...] Discharge Instructions Instructions Katie Kuo RN - 02/14/2011[facility] After Reyna Catheter & [...] from 8:00 4:30, call the Urology Clinic [phone]. After hours, weekend and holidays call the Hospital Filter Press Pumper at [phone]. Ask for them to page your doctor. Your doctor is RETURN APPOINTMENT Pre-Scheduled for March 31, 2011 @ 10:45 AM Call the Urology clinic to confirm this appointment . Urology Clinic [phone] Please call the clinic if you need [...]
--- OUTSIDE RECORDS SUMMARY | ~2019-02-14 | XMS | Encounter Summary ---
Demographics + + + | Address | GENERAL DELIVERY | | | [place] [address] | + + + | Home Phone [...] + + + | Author | [facility] | + + + | Organization | [facility] | + + + | Address | Unknown | + + + | Phone | Unavailable | + + + Support + + +---------+ + | Name | Relationship | Address | Phone | + + +---------+ + | Per None, PT | ECON | Unknown | Unavailable | + + +---------+ + Care Team Providers + +------+ + | Care Distribution Estimator Name | Role | Phone | + [...] | | | URINARY | [place] | [address] | | | | | RETENTION | STATE | Ave | | | | | | HOSPITAL | [place], [place] | | | | | | [address] | [address] | | | | | | [address] | Phone: | | | | | | [place], [place] | [phone] | | | | | | [address] | Fax: | | | | | | Phone: | [phone] | | | | | | [phone] | | | | | | | Fax: | | | | | | | [phone] | | +--------+--------+ + + + + [...] | | | | Mailcode: CH10U | [place], [place] | | | | | [facility] | [address] | | | | | and [place], | [phone] | | | | | | | | | | | Floor [place], [place] | | | | | | [address] | | | | | | [phone] | | | +--------+ + + + [...] hands with soap and water or hand lead data architect. Clean the tip of the penis with [...] or contact PCP or call us at [phone] or after hours at [phone] for signs or symptoms of UTI. Urinary [...] for life. We will have our clinic space studies faculty member the proper technique. He should be able [...] Resident Physician - Division of Urology Pager #[phone] Wang Fitzgerald Md - 1 05/28/2009 10:48 [...] | + +--------+ + + + | [place] CYSTOURETHROSCOPY | Routin | 03/28/2010 | Unspecified [...] | + +--------+ + + + | [place] CYSTOURETHROSCOPY | Routin | 03/28/2010 | Voiding | Results for this | | | e | | dysfunction | procedure are in the | | | | | | results section. | + +--------+ + + + documented in this encounter Results [place] CYSTOURETHROSCOPY (03/28/2010) + + + | Narrative [...] into the urethra and a penis clamp | | | was applied. After 5 minutes the lubricated flexible Olympus | | | cystoscope was introduced gently through the urethra and into the | | | bladder. The penile and membranous urethra appears normal. The | | | prostatic urethra appears normal. The bladder wall appears normal | | | with no tumors, stones or suspicious areas noted. There is an area | | | of erythema/mucosal edema on the posterior wall at the site of the | | | linares balloon. Both ureteral orifices were identified. The | | | scope was retroflexed and the bladder neck area was carefully | | | examined with no other findings. There was no bleeding noted during | | | this procedure. The procedure was tolerated well. He was given | | | one dose of Cipro 500mg post procedure. Dr. Canchola was present for | | | this procedure. | | + + + UA DIPSTICK ONLY W/O MICRO, POC (03/28/2010) + +--------+ + + + | Component | Value | Ref Range | Performed | Pathologist | | | | | At | Signature | + +--------+ + + + | COLOR (UA | yellow | | [facility], | | | DIP), POC | | [...] | + + + + + | [facility] | [address] | [place] [address] | | | OF CARE TESTS | | | | + + + + + documented in this encounter Visit Diagnoses + + | Diagnosis | + + | Retention of urine, unspecified | + + | Voiding dysfunction Unspecified disorder of urethra and urinary tract | + + documented in this encounter"
--- OUTSIDE RECORDS SUMMARY | ~2019-02-14 | XMS | Encounter Summary ---
Demographics + + + | Address | GENERAL DELIVERY | | | [place] [address] | + + + | Home Phone [...] Team Providers + +------+ + | Care Railroad Police Officer Name | Role | Phone | [...] + + | 06/13/ | Telephone | [facility] | Jeancarlos Marley MD | Pain | | 2014 | | [place] [address] [address] | [address] | | | | | [address] | [place], [place] | | | | | Mailcode: OC8D | [address] | | | | | [facility] | [phone] | | | | | and Healing, | | | | | | [address] | | | | | | [place], [place] | | | | | | [address] | | | | | | [phone] | | | +--------+ + + + [...]
--- OUTSIDE RECORDS SUMMARY | ~2019-02-14 | XMS | Encounter Summary ---
Demographics + + + | Address | GENERAL DELIVERY | | | [place] [address] | + + + | Home Phone [...] Author + + + | Author | [facility] | + + + | Organization | [facility] | + + + | Address | Unknown | + + + | Phone | Unavailable | + + + Support + + +---------+ + | Name | Relationship | Address | Phone | + + +---------+ + | Per None, PT | ECON | Unknown | Unavailable | + + +---------+ + Care Team Providers + +------+ + | Care Inside Sales Supervisor Name | Role | Phone | + +------+ + | Lakesha River | PCP | | + +------+ + Encounter Details +--------+ + + + + | Date | Type | Department | Care Team | Description | +--------+ + + + + | 08/11/ | Telephone | Digestive Health | Jeancarlos Marley MD | | | 2008 | | Center at [facility] [address] | [address] | | | | | [address] | [place], [place] | | | | | Mailcode: Center | [address] | | | | | for Health and | [phone] | | | | | [facility], [facility] [address] | | | | | | [place], [place] | | | | | | [address] | | | | | | [phone] | | | +--------+ + + + [...] | [facility] | | | | INR | | DEPARTMENT | | | | Therapeutic ranges for | | OF | | | | full | | PATHOLOGY | | | | anticoagulation: | | | | | | INR for Venous | | | | | | Thromboembolism | | | | | | | | | | | | (2.0-3.0) | | | | | | INR INR for | | | | | | most patients with mech. | | | | | | | | | | | | valves [...] | + + + + + | [facility] | [address] [facility] | [place] [address] | | | PATHOLOGY | [address] | | | + + + + + | [facility] | [address] [facility] [facility] [facility] | [place] [address] | | | PATHOLOGY | [address] [...] | + + + + + | [facility] DEPARTMENT OF | [address] [facility] [facility] | [place] [address] | | | PATHOLOGY | [address] | | | + + + + + | [facility] OF | [address] [facility] [facility] [facility] | [place] [address] | | | PATHOLOGY | [address] [...] Performed At | + + + | [id number] Estimated GFR > 60 mL/min/1.73 sq m if non- | [facility] | | [place] [address] Estimated GFR > 60 mL/min/1.73 sq m if | DEPARTMENT | | [place] GFR is estimated using the MDRD equation recommended by | PATHOLOGY | | the National Kidney Disease Education Program. Estimated GFR | | | Interpretive Information: <60 mL/min/1.73 sq m Chronic | | | Kidney Disease <15 mL/mon/1.73 sq m Kidney Failure | | | Estimated GFR greater than 60mL/min/1.73 is of limited clinical | | | Value. The MDRD equation is not valid in the following situations: | | | - Patients under 18 years of age - Severe malnutrition or obesity | | | - Vegetarian diet - Rapidly changing kidney function | | + + + + + + + + | Performing | Address | City/State/Zipcode | Phone Number | | Organization | | | | + + + + + | [facility] DEPARTMENT | [address] | [place] [address] | | | PATHOLOGY | [address] | | | + + + + + | [facility] | [address] | [place] [address] | | | PATHOLOGY | [address] | | | + + + + + documented in this encounter Visit Diagnoses + + | Diagnosis | + + | Chronic hepatitis C without mention of hepatic coma - Primary | + + documented in this encounter"
--- OUTSIDE RECORDS SUMMARY | ~2019-02-14 | XMS | Encounter Summary ---
Demographics + + + | Address | GENERAL DELIVERY | | | [place] [address] | + + + | Home Phone [...] Team Providers + +------+ + | Care Sugar Drier Name | Role | Phone | + +------+ + | Etienne Barnes PA-C | PCP | | + +------+ + Encounter Details +--------+ + + + + | Date | Type | Department | Care Team | Description | +--------+ + + + + | 06/15/ | Document-Sc | UNKNOWN DEPARTMENT | Unknown . | | | 2014 | anned | [address] [facility] | | | | | | [address] | | | | | | [place], [place] | | | | | | [address] | | | +--------+ + + + [...]
--- OUTSIDE RECORDS SUMMARY | ~2019-02-14 | XMS | Encounter Summary ---
Demographics + + + | Address | GENERAL DELIVERY | | | [place] [address] | + + + | Home Phone [...] Team Providers + +------+ + | Care Side Splitter Name | Role | Phone | + [...] | | | | Mailcode: CH10U | [place], [place] | | | | | [facility] | [address] | | | | | and [place], | [phone] | | | | | [facility] | | | | | | Floor [place], [place] | | | | | | [address] | | | | | | [phone] | | | +--------+ + + + [...]
--- OUTSIDE RECORDS SUMMARY | ~2019-02-14 | XMS | Encounter Summary ---
Demographics + + + | Address | GENERAL DELIVERY | | | [place] [address] | + + + | Home Phone [...] Team Providers + +------+ + | Care Solo Musician Name | Role | Phone | + +------+ + PCP | Unavailable | + +------+ + Reason for Visit + + + | Reason | Comments | + + + | Blood Test Results | Outside labs from [facility] 06/08/14. | + + + Encounter Details +--------+ + + + + | Date | Type | Department | Care Team | Description | +--------+ + + + + | 06/13/ | Documentati | Digestive Health | Jeancarlos Marley MD | Blood Test Results | | 2014 | on | Center at [facility] [address] | [address] | (Outside labs from | | | | [address] | [place], [place] | [facility] | | | | Mailcode: OC8D | [address] | 06/08/14.) | | | | [facility] | [phone] | | | | | and Healing, | | | | | | Building [address] | | | | | | [place], [place] | | | | | | [address] | | | | | | [phone] | | | +--------+ + + + [...] | + +---------+ + + | NON [facility] | | | | + +---------+ + + documented in this encounter Visit Diagnoses Not on filedocumented in this encounter"
--- OUTSIDE RECORDS SUMMARY | ~2019-02-14 | XMS | Encounter Summary ---
Demographics + + + | Address | GENERAL DELIVERY | | | [place] [address] | + + + | Home Phone [...] Author + + + | Author | [facility] | + + + | Organization | [facility] | + + + | Address | Unknown | + + + | Phone | Unavailable | + + + Support + + +---------+ + | Name | Relationship | Address | Phone | + + +---------+ + | Per None, PT | ECON | Unknown | Unavailable | + + +---------+ + Care Team Providers + +------+ + | Care Bell Attendant Name | Role | Phone | [...] Lab Order | | 2014 | | [place] at [facility] [address] | [address] | | | | | [address] | [facility] [place] | | | | | Mailcode: OC8D | [address] | | | | | [facility] Health | [phone] | | | | | and Healing, | | | | | | [address] | | | | | | [place], [place] | | | | | | [address] | | | | | | [phone] | | | +--------+ + + + [...]
--- OUTSIDE RECORDS SUMMARY | ~2019-02-14 | XMS | Encounter Summary ---
Demographics + + + | Address | GENERAL DELIVERY | | | [place] [address] | + + + | Home Phone | | + + + | Preferred Language | Unknown | + + + | Marital Status | Single | + + + | Sabianism Affiliation | NON | + + + | Race | White | + + + | Ethnic Group | Not or | + + + Author + + + | Author | [facility] | + + + | Organization | [facility] | + + + | Address | Unknown | + + + | Phone | Unavailable | + + + Support + + +---------+ + | Name | Relationship | Address | Phone | + + +---------+ + | Per None, PT | ECON | Unknown | Unavailable | + + +---------+ + Care Team Providers + +------+ + | Care Bowling Alley Floors Installer Name | Role | Phone | [...] | | | | Mailcode: CH10U | [place], [place] | | | | | [facility] | [address] | | | | | and [place], | [phone] | | | | | [facility] | | | | | | Floor [place], [place] | | | | | | [address] | | | | | | [phone] | | | +--------+ + + + [...]
--- OUTSIDE RECORDS SUMMARY | ~2019-02-14 | XMS | Encounter Summary ---
Demographics + + + | Address | GENERAL DELIVERY | | | [place] [address] | + + + | Home Phone [...] + + + | Author | [facility] | + + + | Organization | [facility] | + + [...] Team Providers + +------+ + | Care Blade Boner Name | Role | Phone | + +------+ + PCP | Unavailable | + +------+ + Encounter Details +--------+ + + + + | Date | Type | Department | Care Team | Description | +--------+ + + + + | 06/14/ | Document-Sc | Digestive Health | Jeancarlos Marley MD | | | 2015 | anned | [place] [address] [address] | [address] | | | | | [address] | [place], [place] | | | | | Mailcode: OC8D | [address] | | | | | [facility] | [phone] | | | | | and Healing, | | | | | | [address] | | | | | | [place], [place] | | | | | | [address] | | | | | | [phone] | | | +--------+ + + + [...]
--- OUTSIDE RECORDS SUMMARY | ~2019-02-14 | XMS | Encounter Summary ---
Demographics + + + | Address | GENERAL DELIVERY | | | [place] [address] | + + + | Home Phone | | + + + | Preferred Language | Unknown | + + + | Marital Status | Single | + + + | Lutheran Affiliation | NON | + + + [...] Team Providers + +------+ + | Care Basketballs And Footballs Reverser Name | Role | Phone | + [...] Lab Order | | 2014 | | [place] at [facility] [address] | [address] | | | | | [address] | [facility] [place] | | | | | Mailcode: OC8D | [address] | | | | | [facility] Health | [phone] | | | | | and Healing, | | | | | | [address] | | | | | | [place], [place] | | | | | | [address] | | | | | | [phone] | | | +--------+ + + + [...]
--- OUTSIDE RECORDS SUMMARY | ~2019-02-14 | XMS | Encounter Summary ---
Demographics + + + | Address | [place] DELIVERY | | | [place] [address] | + + + | Home Phone [...] Team Providers + +------+ + | Care Retail Support Associate Name | Role | Phone | + [...] | Appointment | | 2009 | | [address] | [address] | | | | | Mailcode: CH10U | [place], [place] | | | | | [facility] | [address] | | | | | and Healing, | [phone] | | | | | | | | | | | Floor [place], [place] | | | | | | [address] | | | | | | [phone] | | | +--------+ + + + [...]
--- OUTSIDE RECORDS SUMMARY | ~2019-02-14 | XMS | Encounter Summary ---
Demographics + + + | Address | GENERAL DELIVERY | | | [place] [address] | + + + | Home Phone [...] + + + | Author | [facility] | + + + | Organization | [facility] | + + + | Address | Unknown | + + + | Phone | Unavailable | + + + Support + + +---------+ + | Name | Relationship | Address | Phone | + + +---------+ + | Per None, PT | ECON | Unknown | Unavailable | + + +---------+ + Care Team Providers + +------+ + | Care Youth Care Professional Name | Role | Phone | + +------+ + | Lakesha River | PCP | | + +------+ + Encounter Details +--------+------+ + + + | Date | Type | Department | Care Team | Description | +--------+------+ + + + | 02/27/ | Lab | Laboratory at [facility] | | Chronic Hepatitis C | | 2007 | | [address] | | without Mention of | | | | [place], [place] | | Hepatic Coma | | | | [address] | | | | | | [phone] | | | +--------+------+ + + + [...] + + documented in this encounter Results [facility] - INR (PROTHROMBINTIME) (02/28/2008 9:24 AM PDT) + + + + + + | Component | Value | Ref Range | Performed | Pathologist | | | | | At | Signature | + + + + + + | [facility] | 1.10Comment: | 0.98 - 1.20 INR | [facility] | | | | PT INR | | DEPARTMENT | | | | Therapeutic ranges for | | OF | | | | full | | PATHOLOGY | | | | anticoagulation: | | | | | | INR for | | | | | | Venous | | | | | | Thromboembolism | | | | | | | | | | | | (2.0-3.0) INR | | | | | | INR for | [...] REG[facility]AL [facility]ALTH | [address] | [place] [address] | | | PATHOLOGY | [address] | | | + + + + + | [facility] | [facility] [address] | [place] [address] | | | PATHOLOGY | [address] [...] | + + + + + | [facility] DEPARTMENT OF | [address] | [place] [address] | | | PATHOLOGY | [address] | | | + + + + + | [facility] OF | [address] | [place] [address] | | | PATHOLOGY | [address] | | | + + + + + [facility] - COMPLETE METABOLIC SET (02/28/2008 9:24 AM [...] DEPARTMENT OF | [address] | [place], [place] [address] | | | PATHOLOGY | [address] | | | + + + + + | [facility] | [address] | [place] [address] | | | PATHOLOGY | [address] | | | + + + + + documented in this encounter Visit Diagnoses + + | Diagnosis | + + | Chronic hepatitis C without mention of hepatic coma | + + documented in this encounter"
--- OUTSIDE RECORDS SUMMARY | ~2019-02-14 | XMS | Encounter Summary ---
Demographics + + + | Address | GENERAL DELIVERY | | | [place] [address] | + + + | Home Phone [...] Team Providers + +------+ + | Care Foundation Drill Operator Name | Role | Phone | [...] | | | | | HOSPITAL | [place], [place] | | | | | | [address] | [address] | | | | | | [address] | Phone: | | | | | | [place], [place] | [phone] | | | | | | [address] | Fax: | | | | | | Phone: | [phone] | | | | | | [phone] | | | | | | | Fax: | | | | | | | [phone] | | +--------+--------+ + + + + [...] | | | | Mailcode: CH10U | [place], [place] | Voiding dysfunction | | | | [facility] | [address] | | | | | and Healing, | [phone] | | | | | Building | | | | | | Floor [place], [place] | | | | | | [address] | | | | | | [phone] | | | +--------+---------+ + + + [...] He is currently an inpatient in the [facility] for schizo-affective disorder. Since the [...] | | | | | | Culture: | | | | | | Final Report: No | | | | | | growth Final | | | | | | Report | | | | | | Resulted: / | | | | | | 09/03 | | | | | | [facility] | | | | | | ([facility]) | | | | | | [place] | | | | | | [facility] | | | | | | [address] | | | | | | [address] | | | | | | [place] | | | | | | , [place] [address] | | | | + + + + + + + + | Specimen | + + | Urine - Catheter - | | single | + + + + + + + | Performing | Address | City/State/Zipcode | Phone Number | | Organization | | | | + + + + + | [facility] | [address] | [place] [address] | | | LAB-MICRO | | | | + + + + + documented in this encounter Visit Diagnoses + + | Diagnosis | + + | Retention of urine, unspecified | + + | Voiding dysfunction Unspecified disorder of urethra and urinary tract | + + documented in this encounter
--- OUTSIDE RECORDS SUMMARY | ~2019-02-14 | XMS | Encounter Summary ---
Demographics + + + | Address | GENERAL DELIVERY | | | [place] [address] | + + + | Home Phone [...] Author + + + | Author | [facility] | + + + | Organization | [facility] | + + + | Address | Unknown | + + + | Phone | Unavailable | + + + Support + + +---------+ + | Name | Relationship | Address | Phone | + + +---------+ + | Per None, PT | ECON | Unknown | Unavailable | + + +---------+ + Care Team Providers + +------+ + | Care Harvest Worker Fruit Name | Role | Phone | + [...] | | | URINARY | [place] | [address] | | | | | RETENTION | STATE | Ave | | | | | | HOSPITAL | [place], [place] | | | | | | [address] | [address] | | | | | | [address] | Phone: | | | | | | [place], [place] | [phone] | | | | | | [address] | Fax: | | | | | | Phone: | [phone] | | | | | | [phone] | | | | | | | Fax: | | | | | | | [phone] | | +--------+--------+ + + + + [...] | | | | Mailcode: CH10U | [place], [place] | | | | | [facility] | [address] | | | | | and [place], | [phone] | | | | | | | | | | | Floor [place], [place] | | | | | | [address] | | | | | | [phone] | | | +--------+ + + + [...] hands with soap and water or hand hospitalist program director. Clean the tip of the penis with [...] or contact PCP or call us at [phone] or after hours at [phone] for signs or symptoms of UTI. Urinary [...] for life. We will have our clinic logistics account manager the proper technique. He should be [...] Resident Physician - Division of Urology Pager #[phone] Wang Fitzgerald Md - 1 05/28/2009 10:48 [...] | + +--------+ + + + | [place] CYSTOURETHROSCOPY | Routin | 03/28/2010 | Unspecified [...] | + +--------+ + + + | [place] CYSTOURETHROSCOPY | Routin | 03/28/2010 | Voiding | Results for this | | | e | | dysfunction | procedure are in the | | | | | | results section. | + +--------+ + + + documented in this encounter Results [place] CYSTOURETHROSCOPY (03/28/2010) + + + | Narrative [...] + + + | [facility] | [address] | [place] [address] | | | OF CARE TESTS | | | | + + + + + documented in this encounter Visit Diagnoses + + | Diagnosis | + + | Retention of urine, unspecified | + + | Voiding dysfunction Unspecified disorder of urethra and urinary tract | + + documented in this encounter"
--- OUTSIDE RECORDS SUMMARY | ~2019-02-14 | XMS | Encounter Summary ---
Demographics + + + | Address | GENERAL DELIVERY | | | [place] [address] | + + + | Home Phone | | + + + | Preferred Language | Unknown | + + + | Marital Status | Single | + + + | Nondenominational Affiliation | NON | + + + [...] Providers + +------+ + | Care Wood Crew Supervisor Name | Role | Phone | [...] Mention of | | | | at [facility] 3rd Floor | | Hepatic Coma | | | | [address] | | | | | | [place], | | | | | | [place] [address] | | | | | | [phone] | | | +--------+------+ + + + [...] + + + + | [facility] | [address] | [place] [address] | | | PATHOLOGY | [address] | | | + + + + + | [facility] | [address] [facility] | [place] [address] | | | PATHOLOGY | [address] | | | + + + + [...] + + + + | [facility] | [address] [facility] | [place] [address] | | | PATHOLOGY | [address] | | | + + + + + | [facility] | [address] [facility] | [place] [address] | | | PATHOLOGY | [address] [...] + + + + | [facility] | [address] [facility] | [place] [address] | | | PATHOLOGY | [address] | | | + + + + + | [facility] | [address] [facility] | [place] [address] | | | PATHOLOGY | [address] [...] Performed At | + + + | [id number] Estimated GFR > 60 mL/min/1.73 sq m if non- | [facility] | | [place] [id number] Estimated GFR > 60 mL/min/1.73 sq m if | DEPARTMENT | | Thai GFR is estimated using [...] | + + + + + | [facility] DEPARTMENT | [address] | [place] [address] | | | PATHOLOGY | [address] | | | + + + + + | [facility] | [address] | [place] [address] | | | PATHOLOGY | [address] | | | + + + + + documented in this encounter Visit Diagnoses + + | Diagnosis | + + | Chronic hepatitis C without mention of hepatic coma | + + documented in this encounter"
--- OUTSIDE RECORDS SUMMARY | ~2019-02-14 | XMS | Encounter Summary ---
Demographics + + + | Address | GENERAL DELIVERY | | | [place] [address] | + + + | Home Phone [...] Team Providers + +------+ + | Care Splitter Operator Name | Role | Phone | [...] + + | 02/14/ | Hospital | [facility] [address] | Armand Ordonez MD | | | 2010 | Encounter | [address] | [address] | | | | | [address] | [place], [place] | | | | | [facility] | [address] | | | | | (MNP/[facility]) | [phone] | | | | | [place], [place] | | | | | | [address] | | | | | | [phone] | | | +--------+ + + + [...] Discharge Instructions Instructions Katie Kuo RN - 02/14/2011[facility] After Reyna Catheter & Leg [...] from 8:00 4:30, call the Urology Clinic [phone]. After hours, weekend and holidays call the Hospital Tractor Distributor at [phone]. Ask for them to page your doctor. Your doctor is RETURN APPOINTMENT Pre-Scheduled for March 31, 2011 @ 10:45 AM Call the Urology clinic to confirm this appointment . Urology Clinic [phone] Please call the clinic if you need [...]
--- OUTSIDE RECORDS SUMMARY | ~2019-02-14 | XMS | Encounter Summary ---
Demographics + + + | Address | GENERAL DELIVERY | | | [place] [address] | + + + | Home Phone | | + + + | Preferred Language | Unknown | + + + | Marital Status | Single | + + + | Episcopal Affiliation | NON | + + + [...] Team Providers + +------+ + | Care Cloth Hand Name | Role | Phone | [...] | abdominal | [address] | [address] | | | | | pain | [facility] | Ave | | | | | Neurogenic | Rd | [facility] [place] | | | | | bladder | [facility] [place] | [address] | | | | | Procedures | [address] | Phone: | | | | | CONSULT TO | Phone: | [phone] | | | | | UROLOGY | [phone] | Fax: | | | | | | Fax: | [phone] | | | | | | [phone] | | +--------+--------+ + + + + Reason for Visit + + + | Reason | Comments | + + + | Catheter Problem | | + + + Encounter Details +--------+ + + + + | Date | Type | Department | Care Team | Description | +--------+ + + + + | 02/22/ | Emergency | [facility] Emergency | Fe Walter, | | | 2017 - | | Department [address] | Edith Kelley MD [address] | | | | | [facility] | [facility] | | | 02/23/ | | [facility] | [address], [place] | | | 2017 | | [place], [place] | [address] | | | | | [address] | | | | | | [phone] | | | +--------+ + + + [...] for coming to the Emergency Department at [facility] for your care. You were evaluated [...] other well. -Be careful about taking other kvvp-yei-yaoxcaz medicines, which may contain acetaminophen or ibuprofen and could lead to toxicity. -If you have liver disease, kidney disease or stomach ulcers, the standard doses of these m edicines may be too high for you. -We expect that your pain will improve over the next few days, and do not expect that you w ill need to continue these medicines fdc. You should talk to your primary care [...] your primary care doctor for follow-up and [facility] care. Care delivered in the Emergency Department should not be considered as a substitute for [facility] care and/or specialist care for ongoing medical issues, and it is important that you fo llow up as described above. Thank you for letting us care for you at the [facility] Emergency Department today. Note: If you [...] + + + + | [facility] | [address] | [place], [place] | | | [facility] CARE | [facility] | [address] | | | TESTS | | | [...] | + +---------+ + + + | SQUAMOUS | Few (A) | None /hpf | [facility] | | | EPITHELIAL | | | LABORATORY | | | | | | SERVICES, | | | | | | CORE | | + +---------+ + + + | MUCOUS | Raya (A) | None /hpf | [...] | + +---------+ + + + | NON-SQUAMOU | Raya (A) | None /hpf | [...] [facility] | [address] | [place] [address] | | | SERVICES, CORE | PARK [...] Screen Positive, specimen sent for culture. | [facility] | | | LABORATORY | | | NANCY MAX | + + + + + + + + | Performing | Address | City/State/Zipcode | Phone Number | | Organization | | | | + + + + + | [facility] | [address] | [place] [address] | | | SERVICES, NANCY | [address] | | | + [...] + | DIAL - AIRPORT - | [address] | [place] [address] | | | [place] | | | | + + + [...] [facility] | [address] | [place] [address] | | | SERVICES, CORE | [address] [...] | + + + + + | [facility] | [address] | [place] [address] | | | NANCY MAX | [address] [...] | + + + + + | [facility] | [address] | [place] [address] | | | SERVICES, CORE | [address] [...] | + + + + + | [facility] | [address] | [place] [address] | | | NANCY MAX | [address] [...] | + + + + + | [facility] | [address] | [place] [address] | | | NANCY MAX | [address] [...] | + + + + + | [facility] | [address] | [place] [address] | | | SERVICES, | [address] | | | | TRANSFUSION MEDICINE | | | | + + + + + ED INFORMATION EXCHANGE (02/22/2017 8:33 PM PDT) + + | Specimen | + + | | + + + + + | Narrative | Performed At | + + + | [id number] This patient has registered at the | [facility] | | [facility] Emergency Department For more | MEDICAL | | information visit: | TECHNOLOGIES | | [email or web address] | | | [email or web address] ED Care Guidelines from [facility] Last | | | Updated: 12/03/16 2:35 PM Care Coordination: ENCOURAGE PATIENT | | | TO USE PCP FOR FOLLOW UP AND NON-EMERGENT PROBLEMS. GIVE PATIENT | | | THIS DISTRIBUTION SUPERINTENDENT NAME AND NUMBER FOR HELP AND QUESTIONS. MARSHALL AMADOR | | | PRINCIPAL PRODUCT MANAGER [facility] [phone] These are | | | guidelines and the provider should exercise clinical judgment when | | | providing care. Care History Behavioral 12/03/16 12:00 AM [facility] | | | [facility] PT IS WORKING WITH [employer] -- | | | ATTN:IVONNE DEXTER Medical/Surgical 11/03/14 12:[address] [facility] | | | [facility] Smoker Methamphetamine abuse Recent | | | Emergency Department Visit Summary Admit Date Facility City State | | | Type Major Type Diagnoses or Chief Complaint Feb 22, 2017 [place] | | | [facility] [place] Emergency Emergency | | | 10,800. Cath issue Feb 20, 2017 [facility] | | | [facility] Emergency Emergency dizzy Generalized | | | Body Aches Neuromuscular dysfunction of bladder, unspecified | | | Feb 18, 2017 [facility] [place] Emergency Emergency | | | Other stimulant abuse, uncomplicated Other extermination supervisor | | | (current) drug therapy Nicotine dependence, unspecified, | | | uncomplicated Anxiety disorder, unspecified Foreign body | | | in bladder, initial encounter Bipolar disorder, unspecified | | | Allergy status to other drugs, medicaments and biological | | | substances status Other nonmedicinal substance allergy | | | status Allergy status to other antibiotic agents status | | | Hematuria, unspecified Feb 16, 2017 [facility] [place] | | | Emergency Emergency Chief Complaint: Urinary Problem Sep | | | 2016 [facility] [place] | | | Emergency Emergency Chief Complaint: URO MALE Sep 10, | | | 2016 [facility] [place] | | | Emergency Emergency Bipolar disorder, unspecified | | | Nicotine dependence, cigarettes, uncomplicated Other stimulant | | | dependence, uncomplicated Dec 30, 2016 [facility] | | | [place] Emergency Emergency catheter issues | | | Urinary Catheter Insertion Other urethritis Retention of | | | urine, unspecified Other stimulant abuse, uncomplicated | | | Dec 03, 2016 [facility] [place] Emergency Emergency | | | Bipolar disorder, unspecified Schizoaffective disorder, | | | unspecified Other fdc (current) drug therapy | | | Nicotine dependence, unspecified, uncomplicated Anxiety | | | disorder, unspecified Allergy status to other antibiotic agents | | | status Allergy status to other drugs, medicaments and | | | biological substances status Other fatigue Delusional | | | disorders Essential (primary) hypertension Nov 24, 2016 | | | [facility] [place] Emergency Emergency Encounter | | | for other general examination Allergy status to other drugs, | | | medicaments and biological substances status Bipolar | | | disorder, unspecified Other fdc (current) drug therapy | | | Major depressive disorder, single episode, unspecified | | | Essential (primary) hypertension Recent Inpatient Visit | | | Summary No recorded inpatient visits. E.D. Visit Count (12 mo.) | | | Facility Visits [facility] 2 [facility] | | | and [address] | | | Hospital [address] | | | [facility] ED 1 [facility] 15 Total 23 Note: | | | Visits indicate total known visits. Care Providers Provider | | | PRC Type Phone Fax Service Dates Fam Donnelly MD, MD Primary Care | | | Current [facility] MENTAL HEALTH, | | | Mental Health Provider Nov 15, 2016 - | | | Current PAULINA Orellana Case or Pharmacy Scheduler | | | Current The above information is provided for | | | the sole purpose of patient treatment. Use of this information | | | beyond the terms of Data Sharing Memorandum of Understanding and | | | License Agreement is prohibited. In certain cases not all visits may | | | be represented. Consult the aforementioned facilities for | | | additional information. 2017 [employer] - | | | [place], [place] - [email or web address] | | + + + + + | Procedure Note | + + | Service Account, Rtf Results Inbound - 02/22/2017 8:34 PM PDT Formatting of this | | note might be different from the original.NIRANJAN?NOTIFICATION?02/22/2017 20:33?ROMERO, | | AALIYAH? patient has registered at the [facility] [employer] | | [place] [facility] Department For more information visit: | | [email or web address] ED Care | [facility]: 12/03/16 2:35 PM Care | | Coordination:ENCOURAGE PATIENT TO USE PCP FOR FOLLOW UP AND NON-EMERGENT PROBLEMS.GIVE | | PATIENT THIS DISTRIBUTION SUPERINTENDENT NAME AND NUMBER FOR HELP AND QUESTIONS.MARSHALL AMADORED CASE | | CABLE SPLICER ASSISTANT [id number] are guidelines and the provider should | | exercise clinical judgment when providing care.Care HistoryBehavioral12/03/16 12:00 AM | | [facility] -- ATTN:? IVONNE | | CONKEYMedical/Surgical11/03/14 12:00 AM Jonn Herman | | HospitalSmokerMethamphetamine abuseRecent Emergency Department Visit SummaryAdmit Date | | Facility City State Type Major Type Diagnoses or Chief Complaint Feb 22, 2017 [place] | | [facility] [place] Emergency Emergency 10,800. Cath issue Feb | | 2016 [facility] [place]. [place] Emergency Emergency dizzy Generalized | | Body Aches Neuromuscular dysfunction of bladder, unspecified [facility] | Jason Aguilar [place] Emergency Emergency Other stimulant abuse, uncomplicated | | Other extermination supervisor (current) drug therapy Nicotine dependence, unspecified, | | uncomplicated Anxiety disorder, unspecified Foreign body in bladder, initial | | encounter Bipolar disorder, unspecified Allergy status to other drugs, medicaments | | and biological substances status Other nonmedicinal substance allergy status | | Allergy status to other antibiotic agents status Hematuria, unspecified Feb 16, 2017 | | [facility] [place] Emergency Emergency Chief Complaint: Urinary Problem Jan | 2016 [facility] [place] Emergency Emergency Chief | | Complaint: URO MALE Jan 25, 2017 [facility] [place] Emergency | | Emergency Bipolar disorder, unspecified Nicotine dependence, cigarettes, | | uncomplicated Other stimulant dependence, uncomplicated Dec 30, 2016 [facility] | | [place]. [place] Emergency Emergency catheter issues Urinary Catheter | | Insertion Other urethritis Retention of urine, unspecified Other stimulant | | abuse, uncomplicated Dec 03, 2016 [facility] [place] Emergency Emergency | | Bipolar disorder, unspecified Schizoaffective disorder, unspecified Other long | | term (current) drug therapy Nicotine dependence, unspecified, uncomplicated | | Anxiety disorder, unspecified Allergy status to other antibiotic agents status | | Allergy status to other drugs, medicaments and biological substances status Other | | fatigue Delusional disorders Essential (primary) hypertension Nov 24, 2016 [facility] | | [place] Emergency Emergency Encounter for other general examination | | Allergy status to other drugs, medicaments and biological substances status | | Bipolar disorder, unspecified Other extermination supervisor (current) drug therapy Major | | depressive disorder, single episode, unspecified Essential (primary) hypertension | | Recent Inpatient Visit SummaryNo recorded inpatient visits. E.D. Visit Count (12 | | mo.)Facility Visits [address] | | [address] [facility] 1 [facility] | | [facility] 2 [facility] ED 1 [facility] 15 Total 23 Note: | | Visits indicate total known visits. Care ProvidersProvider [facility] Type Phone Fax Service | | Dates Fam Donnelly MD, MD Primary Care Current [facility] | | MENTAL HEALTH, Mental Health Provider Nov 15, 2016 - | | Current PAULINA Orellana Case or Pharmacy Scheduler ) [phone] Current | | The above information is provided for the sole purpose of patient treatment. Use of this | | information beyond the terms of Data Sharing Memorandum of Understanding and License | | Agreement is prohibited. In certain cases not all visits may be represented. Consult the | | aforementioned facilities for additional information. ? 2017 [employer] | | [employer] - [place], [place] - [email or web address] | | Nicotine dependence, cigarettes, uncomplicated | | Other stimulant dependence, uncomplicated | | | |Dec 30, 2016 [facility] [place] [facility] | | catheter issues | | Urinary Catheter Insertion | | Other urethritis | | Retention of urine, unspecified | | Other stimulant abuse, uncomplicated | | | |Dec 03, 2016 [facility] Emergency Emergency | | Bipolar disorder, unspecified | | Schizoaffective disorder, unspecified | | Other extermination supervisor (current) drug therapy | | Nicotine dependence, unspecified, uncomplicated | | Anxiety disorder, unspecified | | Allergy status to other antibiotic agents status | | Allergy status to other drugs, medicaments and biological substances status | | Other fatigue | | Delusional disorders | | Essential (primary) hypertension | | | |Nov 24, 2016 [facility] [place] Emergency Emergency | | Encounter for other general examination | | Allergy status to other drugs, medicaments and biological substances status | | Bipolar disorder, unspecified | | Other fdc (current) drug therapy | | Major depressive disorder, single episode, unspecified | | Essential (primary) hypertension | | | | | | | |Recent Inpatient Visit Summary | |No recorded inpatient visits. | | | |E.D. Visit Count (12 mo.) | |Facility Visits | |[facility] 2 | |[facility] [place] [facility] | |[facility] 1 | |[facility] 1 | |[facility] 2 | |[facility] 1 | |[facility] 15 | |Total 23 | |Note: Visits indicate total known visits. | | | |Care Providers | |Provider PRC Type Phone Fax Service Dates | |Fam Donnelly MD, Primary Care Current | |[facility], Mental Health Provider Nov 15, 2016 - Current | |PAULINA Orellana Case or Pharmacy Scheduler Current | | | |The above information is provided for the sole purpose of patient treatment. Use of this in formation beyond the terms of Data Sharing Memorandum of Understanding and License Agreement is prohibited. In | |certain cases not all visits may be represented. Consult the aforementioned facilities for additional information. | |? 2017 [employer] - [place], [place] - [email or web address] | + + + + + + + | Performing | Address | City/State/Zipcode | Phone Number | | Organization | | | | + + + + + | [facility] | [address], | [place], [place] | [phone] | | TECHNOLOGIES | [address] | [address] | | + + + + + [...]
--- OUTSIDE RECORDS SUMMARY | ~2019-02-14 | XMS | Encounter Summary ---
Demographics + + + | Address | [address] DELIVERY | | | [place] [address] | + + + | Home Phone [...] Providers + +------+ + | Care Director Of Occupational Health Name | Role | Phone | + [...] | | 2007 | | Center at [facility] [address] | [address] | your call.) | | | | [address] | [place], [place] | | | | | Mailcode: OC8D | [address] | | | | | [place] [facility] | [phone] | | | | | and Healing, | | | | | | [address] | | | | | | [place], [place] | | | | | | [address] | | | | | | [phone] | | | +--------+ + + + [...]
--- OUTSIDE RECORDS SUMMARY | ~2019-02-14 | XMS | Encounter Summary ---
Demographics + + + | Address | GENERAL DELIVERY | | | [place] [address] | + + + | Home Phone [...] Team Providers + +------+ + | Care Purification Operator Helper Name | Role | Phone | [...] Required | | hepatitis C | [address] | [address] | | | | | without | Anabela Michelle | Ave | | | | | mention of | [place], | [place], [place] | | | | | hepatic coma | [place] [address] | [address] | | | | | Procedures | Phone: | Phone: | | | | | CONSULT TO | [phone] | [phone] | | | | | HEPATOLOGY | Fax: | Fax: | | | | | | [phone] | [phone] | +--------+ + + + + + Encounter Details +--------+---------+ + + + | Date | Type | Department | Care Team | Description | +--------+---------+ + + + | 02/27/ | Office | Digestive Health | Jeancarlos Rich MD | Chronic Hepatitis C | | 2007 | Visit | Center at [facility] [address] | [address] | without Mention of | | | | [address] | [place], [place] | Hepatic Coma | | | | Mailcode: OC8D | [address] | (Primary Dx) | | | | [place] [facility] | [phone] | | | | | and Healing, | | | | | | [address] | | | | | | [place], [place] | | | | | | [address] | | | | | | [phone] | | | +--------+---------+ + + + [...] on filedocumented as of this encounter Results CH - INR (PROTHROMBINTIME) (02/28/2008 9:24 AM PDT) [...] [facility] DEPARTMENT OF | [address] [facility] | [place] [address] | | | PATHOLOGY | [address] | | | + + + + + | [facility] DEPARTMENT OF | [facility] | [place] [address] | | | PATHOLOGY | [address] [...] | + + + + + | [facility] | [address] [facility] | [place] [address] | | | PATHOLOGY | [address] | | | + + + + + | [facility] DEPARTMENT OF | [facility] | [place] [address] | | | PATHOLOGY | [address] [...] + + | [facility] DEPARTMENT OF | [address] | [place] [address] | | | PATHOLOGY | [address] | | | + + + + + | [facility] DEPARTMENT | [address] | [place] [address] | | | PATHOLOGY | [address] | | | + + + + + documented in this encounter Visit Diagnoses + + | Diagnosis | + + | Chronic hepatitis C without mention of hepatic coma - Primary | + + documented in this encounter"
--- OUTSIDE RECORDS SUMMARY | ~2019-02-14 | XMS | Encounter Summary ---
Demographics + + + | Address | GENERAL DELIVERY | | | [place] [address] | + + + | Home Phone [...] Team Providers + +------+ + | Care Chip Person Name | Role | Phone | + [...] | | | | Mailcode: CH10U | [place], [place] | | | | | [facility] | [address] | | | | | and Healing, | [phone] | | | | | | | | | | | Floor [place], [place] | | | | | | [address] | | | | | | [phone] | | | +--------+ + + + [...]
--- OUTSIDE RECORDS SUMMARY | ~2019-02-14 | XMS | Clinical Summary ---
Demographics + + + | Address | GENERAL DELIVERY | | | [place] [address] | + + + | Home Phone | | + + + | Preferred Language | Unknown | + + + | Marital Status | Single | + + + | Mormon Affiliation | NON | + + + | Race | White | + + + | Ethnic Group | Not or | + + + Author + + + | Author | [facility] | + + + | Organization | [facility] | + + + [...] Team Providers + +------+ + | Care Multimedia Authoring Specialist Name | Role | Phone | + +------+ + | Fam Donnelly MD | PCP | | + +------+ + Source Comments [facility] is fully live on both [facility] InPatient.[facility] Allergies + + + + + [...] + +--------+ +--------+-------+---------+--------+ | [place] | AGENCY | xxxxxxxxx | 05/18/19 | | | Agency | | | STATE | | 11-Pre | | | | | | OF | | sent | | | | | | [place] | | | | | | + +--------+ +--------+-------+---------+--------+ | FILM TESTS CHECKER MEDICAID | FILM TESTS CHECKER | xxxxxxxx | 05/22/19 | | | [...] | 1980 | [phone] | [place] [address] | | | linda | | | 3 (Home) | | + +--------+ +--------+ + + | Peng Richardson | Agency | Self | [birth year] | | GENERAL DELIVERY | | | | | 1980 | [phone] | [place] [address] | | | | | | 3 (Home) | | + +--------+ +--------+ + + Advance Directives + + + + + | Type | Date Recorded | Patient | Explanation | | | | Freight Handler | | + + + + + | Advance | | | | | Directives and | | | | | Living Will | | | | + + + + + | Power of | | | | | Installation Coordinator | | | | + + + + +
--- OUTSIDE RECORDS SUMMARY | ~2019-02-14 | XMS | Encounter Summary ---
Demographics + + + | Address | GENERAL DELIVERY | | | [place] [address] | + + + | Home Phone [...] Team Providers + +------+ + | Care Weaving Loom Operator Name | Role | Phone | + +------+ + PCP | Unavailable | + +------+ + Encounter Details +--------+------+ + + + | Date | Type | Department | Care Team | Description | +--------+------+ + + + | 12/23/ | Lab | Laboratory at [facility] | | RUQ Abdominal Pain; | | 2007 | | [address] | | Chronic Hepatitis C | | | | [place], [place] | | without Mention of | | | | [address] | | Hepatic Coma | | | | [phone] | | | +--------+------+ + + + [...] | + + + + + | [facility] | [address] | [place] [address] | | | PATHOLOGY | [address] | | | + + + + + | [facility] | [facility] [address] | [place] [address] | | | PATHOLOGY | [address] [...] | + + + + + | [facility] | [address] [facility] | [place] [address] | | | PATHOLOGY | [address] | | | + + + + + | [facility] DEPARTMENT OF | [address] | [place] [address] | | | PATHOLOGY | [address] [...] | + + + + + | [facility] | [address] | [place] [address] | | | PATHOLOGY | [address] | | | + + + + + | [facility] | [address] | [place] [address] | | | PATHOLOGY | [address] [...] Performed At | + + + | [id number] Estimated GFR > 60 mL/min/1.73 sq m if non- | [facility] | | [place] [id number] Estimated GFR > 60 mL/min/1.73 sq m if | DEPARTMENT OF | | [place] GFR is estimated using the MDRD equation [...] Vegetarian diet - Rapidly changing kidney function New | | | Reference ranges effective 07 for: Sodium, Potassium, | | | Chloride,Total CO2, Calcium | | + + + + + + + + | Performing | Address | City/State/Zipcode | Phone Number | | Organization | | | | + + + + + | [facility] | [address] | [place] [address] | | | PATHOLOGY | [address] | | | + + + + + | [facility] | [address] | [place] [address] | | | PATHOLOGY | [address] | | | + + + + + documented in this encounter Visit Diagnoses + + | Diagnosis | + + | RUQ abdominal pain Abdominal pain, right upper quadrant | + + | Chronic hepatitis C without mention of hepatic coma | + + documented in this encounter"
--- OUTSIDE RECORDS SUMMARY | ~2019-02-14 | XMS | Encounter Summary ---
Demographics + + + | Address | GENERAL DELIVERY | | | [place] [address] | + + + | Home Phone [...] Providers + +------+ + | Care Director Asset Name | Role | Phone | + [...] | | | | Mailcode: CH10U | [place], [place] | | | | | [facility] | [address] | | | | | and Healing, | [phone] | | | | | [facility] | | | | | | Floor [place], [place] | | | | | | [address] | | | | | | [phone] | | | +--------+ + + + [...]
--- OUTSIDE RECORDS SUMMARY | ~2019-02-14 | XMS | Encounter Summary ---
Demographics + + + | Address | GENERAL DELIVERY | | | [place] [address] | + + + | Home Phone [...] Team Providers + +------+ + | Care Mud Analysis Operator Name | Role | Phone | + +------+ + PCP | Unavailable | + +------+ + Encounter Details +--------+ + + + + | Date | Type | Department | Care Team | Description | +--------+ + + + + | 12/27/ | Telephone | [facility] | Jeancarlos Marley MD | | | 2007 | | [place] [address] [address] | [address] | | | | | [address] | [place], [place] | | | | | Mailcode: OC8D | [address] | | | | | [facility] | [phone] | | | | | and Healing, | | | | | | [address] | | | | | | [place], [place] | | | | | | [address] | | | | | | [phone] | | | +--------+ + + + [...]
--- OUTSIDE RECORDS SUMMARY | ~2019-02-14 | XMS | Clinical Summary ---
Demographics + + + | Address | [address] | | | [place] [address] | + + + | Home Phone | | + + + | Preferred Language | Unknown | + + + | Marital Status | | + + + | Sikh Affiliation | Unknown | + + + | Race | Unknown | + + + | Ethnic Group | Unknown | + + + Author + + + | Author | [facility] [employer] (Historical as of | | | 01-01-19) | + + + | Organization | [facility] [employer] (Historical as of | | | 01-01-19) [...] Team Providers + +------+ + | Care Tractor Crane Operator Name | Role | Phone | [...]
--- OUTSIDE RECORDS SUMMARY | ~2019-02-14 | XMS | Encounter Summary ---
Demographics + + + | Address | GENERAL DELIVERY | | | [place] [address] | + + + | Home Phone [...] Team Providers + +------+ + | Care Detonator Assembler Name | Role | Phone | + [...] | | 2007 | | Center at [facility] [address] | [address] | your call.) | | | | [address] | [place], [place] | | | | | Mailcode: OC8D | [address] | | | | | [facility] | [phone] | | | | | and Healing, | | | | | | [address] | | | | | | [place], [place] | | | | | | [address] | | | | | | [phone] | | | +--------+ + + + [...]
--- OUTSIDE RECORDS SUMMARY | ~2019-02-14 | XMS | Encounter Summary ---
Demographics + + + | Address | GENERAL DELIVERY | | | [place] [address] | + + + | Home Phone [...] Team Providers + +------+ + | Care Delinquent Tax Collector Name | Role | Phone | + +------+ + | Etienne Barnes PA-C | PCP | | + +------+ + Encounter Details +--------+ + + + + | Date | Type | Department | Care Team | Description | +--------+ + + + + | 06/15/ | Document-Sc | UNKNOWN DEPARTMENT | Unknown . | | | 2014 | anned | [address] [facility] | | | | | | [address] | | | | | | [place], [place] | | | | | | [address] | | | +--------+ + + + [...]
--- OUTSIDE RECORDS SUMMARY | ~2019-02-14 | XMS | Encounter Summary ---
Demographics + + + | Address | GENERAL DELIVERY | | | [place] [address] | + + + | Home Phone [...] Team Providers + +------+ + | Care Blow Molding Machine Operator Name | Role | Phone [...] | | | Ave Mailcode: CH6D | [place], [place] | | | | | [facility] | [address] | | | | | and Healing, | [phone] | | | | | [facility] | | | | | | Floor [place], [place] | | | | | | [address] | | | | | | [phone] | | | +--------+ + + + [...]
--- OUTSIDE RECORDS SUMMARY | ~2019-02-14 | XMS | Encounter Summary ---
Demographics + + + | Address | GENERAL DELIVERY | | | [place] [address] | + + + | Home Phone [...] Providers + +------+ + | Care Head Of Science Name | Role | Phone | + [...] Required | | hepatitis C | [address] | [address] [facility] | | | | | without | [address] | Ave | | | | | mention of | [place], | [place], [place] | | | | | hepatic coma | [place] [address] | [address] | | | | | Procedures | Phone: | Phone: | | | | | CONSULT TO | [phone] | [phone] | | | | | HEPATOLOGY | Fax: | Fax: | | | | | | [phone] | [phone] | +--------+ + + + + + Encounter Details +--------+---------+ + + + | Date | Type | Department | Care Team | Description | +--------+---------+ + + + | 06/16/ | Office | Digestive Health | Jeancarlos Marley MD | Chronic Hepatitis C | | 2007 | Visit | Center at [facility] [address] | [address] | without Mention of | | | | [address] | [place], [place] | Hepatic Coma | | | | Mailcode: OC8D | [address] | (Primary Dx) | | | | [facility] | [phone] | | | | | and Healing, | | | | | | [address] | | | | | | [place], [place] | | | | | | [address] | | | | | | [phone] | | | +--------+---------+ + + + [...] | | | | | lesion is | | | | | | identified. Thegallbl | | | | | | adder is normal. No | | | | | | intra or extrahepatic | | | | | | biliary dilatationis | | | | | | identified. Visualize | | | | | | d portions of the | | | | | | pancreas are | | | | | [...] | | | | | .7 cm, | | | | | | respectively. The | | | | | | urinary bladder | | | | | | isgrossly | | | | | | unremarkable. Visuali | | | | | | zed portions of the | | | | | | aorta and inferiorvena | | | | | | cava are | | | | | [...] | | | | | | virological | | | | | | response. In addition | | | | | | to the presence of | | | | | | HCVgenotype 1,4,5,or 6 | | | | | | isolates, other poor | | | | | | prognostic indicators | | | | | | for asustained response | | | | | | to antiviral therapy | | | | | [...] | | | | | | References:1.) Vivek | | | | | | Navjot suarez, Torri Berger, | | | | | [...] | | | | | | determined byjamia [facility] | | | | | | [facility] | | | | | | Laboratory. It has | | | | | | not been cleared or | | | | [...] | | | | | Improvement Act | | | | | | [id number]. The DNA | | | | | | Diagnostic Laboratory is | | | | | | a fully licensed and/ | | | | | | oraccredited clinical | | | | | | laboratory under CLIA, | | | | | | [place], and the State of | | | | | | [place]. | | | | + + + + + + + + | Specimen | + + | | + + + + + + + | Performing | Address | City/State/Zipcode | Phone Number | | Organization | | | | + + + + + | [facility] | [facility] | [place] [address] | | | GENETICS LABS | [address] | | | | | [address]VE. | [...] Iron and TIBC, Serum Test performed by [facility] | | | [facility]. | | + + + + + + + + | Performing | Address | City/State/Zipcode | Phone Number | | Organization | | | | + + + + + | [facility] | [address] | [place] [address] | | | LABORATORY | | | [...] | | | RLB ([facility]) | | | [facility] [place] [address] | | | [place] [address] | | + + + + + + + + | Performing | Address | City/State/Zipcode | Phone Number | | Organization | | | | + + + + + | [facility] | [address] | [place] [address] | | | LABORATORY | | | [...] + + + | Test performed by [facility]. | | | | | + + + + + + + + | Performing | Address | City/State/Zipcode | Phone Number | | Organization | | | | + + + + + | [facility] | [address] | [place] [address] | | | LABORATORY | | | [...] by | | | | | | [facility] | | | | | | [facility] [employer]. | | | | + + + + + + + + | Specimen | + + | | + + + + + + + | Performing | Address | City/State/Zipcode | Phone Number | | Organization | | | | + + + + + | [facility] | [address] | [place] [address] | | | LABORATORY | | | [...] | | | | | | valves (2.5-3.5)I | | | | | | NR | | | | + + + + + + + + | Specimen | + + | | + + + + + + + | Performing | Address | City/State/Zipcode | Phone Number | | Organization | | | | + + + + + | [facility] | [address] [facility] | [place] [address] | | | PATHOLOGY | [address] | | | + + + + + | [facility] | [facility] | [place] [address] | | | PATHOLOGY | [address] | | | + + + + + LEENA - CONSTANTIN AUTODIFF (06/16/2007 8:55 AM PST) + + [...] | + + + | Sent to [facility]. | [facility] | | | DEPARTMENT OF | | | PATHOLOGY | + + + + + + + + | Performing | Address | City/State/Zipcode | Phone Number | | Organization | | | | + + + + + | [facility] | [address] [place] [address] | [place] [address] | | | PATHOLOGY | [address] | | | + + + + + | [facility] | [facility] | [place] [address] | | | PATHOLOGY | [address] | | | + + + + + documented in this encounter Visit Diagnoses + + | Diagnosis | + + | Chronic hepatitis C without mention of hepatic coma - Primary | + + documented in this encounter
--- OUTSIDE RECORDS SUMMARY | ~2019-02-14 | XMS | Encounter Summary ---
Demographics + + + | Address | GENERAL DELIVERY | | | [place] [address] | + + + | Home Phone [...] Team Providers + +------+ + | Care Web Services Manager Name | Role | Phone | [...] | | | | | | | [address] | | | | | | | Ave | | | | | | | [place], [place] | | | | | | | [address] | | | | | | | Phone: | | | | | | | [phone] | | | | | | | Fax: | | | | | | | [phone] | +--------+--------+ + + + + Encounter [...] | | | | Mailcode: CH10U | [place], [place] | | | | | [facility] | [address] | | | | | and Healing, | [phone] | | | | | | | | | | | Floor [facility] [place] | | | | | | [address] | | | | | | [phone] | | | +--------+ + + + [...] month Facility will likely change care to [place] due to distance. documented in this encounter Plan of Treatment Not on filedocumented as of this encounter Visit Diagnoses + + | Diagnosis | + + | Urinary retention - Primary Retention of urine, unspecified | + + documented in this encounter"
--- OUTSIDE RECORDS SUMMARY | ~2019-02-14 | XMS | Encounter Summary ---
Demographics + + + | Address | GENERAL DELIVERY | | | [place] [address] | + + + | Home Phone [...] Team Providers + +------+ + | Care Channel Opener Outsoles Name | Role | Phone | + +------+ + | [place]ha [place] | PCP | | + +------+ + Encounter Details +--------+ + + + + | Date | Type | Department | Care Team | Description | +--------+ + + + + | 02/27/ | Telephone | [facility] | Jeancarlos Marley MD | | | 2007 | | [place] [address] [address] | [address] | | | | | [address] | [place], [place] | | | | | Mailcode: OC8D | [address] | | | | | [facility] | [phone] | | | | | and Healing, | | | | | | [address] | | | | | | [place], [place] | | | | | | [address] | | | | | | [phone] | | | +--------+ + + + [...]
--- OUTSIDE RECORDS SUMMARY | ~2019-02-14 | XMS | Encounter Summary ---
Demographics + + + | Address | GENERAL DELIVERY | | | [place] [address] | + + + | Home Phone [...] Team Providers + +------+ + | Care Starcher And Tenter Range Feeder Name | Role | Phone | + [...] Hepatitis C | | 2007 | | [place] [address] [address] | [address] | without Mention of | | | | [address] | [place], [place] | Hepatic Coma | | | | Mailcode: OC8D | [address] | (Primary Dx) | | | | [facility] | [phone] | | | | | and Healing, | | | | | | [address] | | | | | | [place], [place] | | | | | | [address] | | | | | | [phone] | | | +--------+ + + + [...] Performed At | + + + | [id number] Estimated GFR > 60 mL/min/1.73 sq m if non- | [facility] | | [id number] Estimated GFR > 60 mL/min/1.73 sq m if GFR | DEPARTMENT OF | | is estimated using the MDRD equation recommended by the National | PATHOLOGY | | Kidney Disease Education Program. Estimated GFR Interpretive | | | Information: <60 mL/min/1.73 sq m Chronic Kidney Disease | | | <15 mL/mon/1.73 sq m Kidney Failure Estimated GFR greater | | | than 60mL/min/1.73 is of limited clinical Value. The MDRD equation | | | is not valid in the following situations: - Patients under 18 years | | | of age - Severe malnutrition or obesity - Vegetarian diet - | | | Rapidly changing kidney function Sample hemolyzed. Results for K, | | | Total Bili., Direct Bili., AST, LD, or HDL may be inaccurate. Refer | | | to comment under test result. | | + + + + + + + + | Performing | Address | City/State/Zipcode | Phone Number | | Organization | | | | + + + + + | [facility] | [address] [facility] | [place] [address] | | | PATHOLOGY | [address] | | | + + + + + | [facility] | [address] [facility] | [place] [address] | | | PATHOLOGY | [address] [...] [facility] | [address] | [place] [address] | | | PATHOLOGY | [address] | | | + + + + + | [facility] | [facility] [address] | [place] [address] | | | PATHOLOGY | [address] [...] DEPARTMENT OF | [address] | [place] [address] | | | PATHOLOGY | [address] | | | + + + + + | [facility] DE[facility] | [address] | [place] [address] | | | PATHOLOGY | [address] [...] + + + + + | [facility] | [address] [facility] | [place] [address] | | | PATHOLOGY | [address] | | | + + + + + | [facility] | [address] [facility] | [place] [address] | | | PATHOLOGY | [address] [...] [facility] | [address] | [place] [address] | | | PATHOLOGY | [address] | | | + + + + + | [facility] | [address] | [place] [address] | | | PATHOLOGY | [address] [...] by | | | | | | [facility] | | | | | | j-Grab. | | | | + + + + + + + + | Specimen | + + | | + + + + + + + | Performing | Address | City/State/Zipcode | Phone Number | | Organization | | | | + + + + + | [facility] | [address] | [place] [address] | | | LABORATORY | | | [...] + + + | Test performed by [facility] [employer]. | | | | | + + + + + + + + | Performing | Address | City/State/Zipcode | Phone Number | | Organization | | | | + + + + + | [facility] | [address] | [place] [address] | | | LABORATORY | | | [...] change effective 03/08/07 | | | RLB ([facility]) | | | [facility] [address] [facility] | | | [place] [address] | | + + + + + + + + | Performing | Address | City/State/Zipcode | Phone Number | | Organization | | | | + + + + + | [facility] | [address] | [place] [address] | | | LABORATORY | | | [...] Iron and TIBC, Serum Test performed by [facility] | | | [facility] [employer]. | | + + + + + + + + | Performing | Address | City/State/Zipcode | Phone Number | | Organization | | | | + + + + + | [facility] | [address] | [place] [address] | | | LABORATORY | | | [...] | | | | | | References:1.) Hazelar | | | | | | Navjot suarez, Torri Berger, | | | | | | Ian Rodriguez, Ling, | | | | | | Concha-Annette Maravilla J. | | | | | | [...] | | | | | determined byjamia CHEN | | | | | | DNA [...] Act | | | | | | [id number]. The DNA | | | | | | Diagnostic Laboratory is | | | | | | a fully licensed and/ | | | | | | oraccredited clinical | | | | | | laboratory under CLIA, | | | | | | [place], and the State of | | | | | | [place]. | | | | + + + + + + + + | Specimen | + + | | + + + + + + + | Performing | Address | City/State/Zipcode | Phone Number | | Organization | | | | + + + + + | [facility] | [place] [address] | [place] [address] | | | GENETICS LABS | [address] | | | | | [place]. | | | + + + + + documented in this encounter Visit Diagnoses + + | Diagnosis | + + | Chronic hepatitis C without mention of hepatic coma - Primary | + + documented in this encounter
--- OUTSIDE RECORDS SUMMARY | ~2019-02-14 | XMS | Clinical Summary ---
Demographics + + + | Address | GENERAL DELIVERY | | | [place] [address] | + + + | Home Phone [...] Author + + + | Author | [facility] | + + + | Organization | [facility] | + + [...] Team Providers + +------+ + | Care Pig Conveyor Operator Name | Role | Phone | + +------+ + | Fam Donnelly MD | PCP | | + +------+ + Source Comments G[facility]O is fully live on both [facility] InPatient.[facility] Allergies + + + + [...] | | | + +--------+ +--------+-------+---------+--------+ | ATHLETIC COACH MEDICAID | ATHLETIC COACH | xxxxxxxx | 05/22/19 | | | [...] | 1980 | [phone] | [place] [address] | | | linda | | | 3 (Home) | | + +--------+ +--------+ + + | Peng Richardson | Agency | Self | 09[birth year]20[birth year] | | GENERAL DELIVERY | | | | | 1980 | [id number] | [place] [address] | | | | | | 3 (Home) | | + +--------+ +--------+ + + Advance Directives + + + + + | Type | Date Recorded | Patient | Explanation | | | | Bakery Products Checker | | + + + + + | Advance | | | | | Directives and | | | | | Living Will | | | | + + + + + | Power of | | | | | Hydraulic Lift Operator | | | | + + + + +
--- OUTSIDE RECORDS SUMMARY | ~2019-02-14 | XMS | Encounter Summary ---
Demographics + + + | Address | GENERAL DELIVERY | | | [place] [address] | + + + | Home Phone [...] Team Providers + +------+ + | Care Biophysics Professor Name | Role | Phone | [...] | | | PROVIDER PER | [address] [place] | | | | | | PT | for Health | | | | | | | and Healing, | | | | | | | Building [address], | | | | | | | 10th Floor | | | | | | | [place], [place] | | | | | | | [address] | | | | | | | Phone: | | | | | | | [phone] | | | | | | | Fax: | | | | | | | [phone] | +--------+--------+ + + + + Encounter [...] | | | Mailcode: CH10U | [facility] [place] | | | | | [facility] | [address] | | | | | and Healing, | [phone] | | | | | [facility] | | | | | | Floor [place], [place] | | | | | | [address] | | | | | | [phone] | | | +--------+---------+ + + + [...] 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 Has had ER visits [...] out of wound for easy remov al/change [facility] present and packing reviewed. A/P: Wound [...]
--- OUTSIDE RECORDS SUMMARY | ~2019-02-14 | XMS | Encounter Summary ---
Demographics + + + | Address | GENERAL DELIVERY | | | [place] [address] | + + + | Home Phone [...] Team Providers + +------+ + | Care Household Refrigerator Mechanic Name | Role | Phone | + +------+ + | Etienne Barnes PA-C | PCP | | + +------+ + Encounter Details +--------+ + + + + | Date | Type | Department | Care Team | Description | +--------+ + + + + | 09/14/ | Document-Sc | UNKNOWN DEPARTMENT | Unknown . | | | 2014 | anned | [address] [facility] | | | | | | [address] | | | | | | [place], [place] | | | | | | [address] | | | +--------+ + + + [...]
--- OUTSIDE RECORDS SUMMARY | ~2019-02-14 | XMS | Encounter Summary ---
Demographics + + + | Address | GENERAL DELIVERY | | | [place] [address] | + + + | Home Phone [...] Team Providers + +------+ + | Care Economics Professor Name | Role | Phone | + +------+ + PCP | Unavailable | + +------+ + Encounter Details +--------+ + + + + | Date | Type | Department | Care Team | Description | +--------+ + + + + | 06/15/ | Document-Sc | Digestive Health | Jeancarlos Marley MD | | | 2015 | anned | [place] [address] [address] | [address] | | | | | [address] | [place], [place] | | | | | Mailcode: OC8D | [address] | | | | | [facility] | [phone] | | | | | and Healing, | | | | | | [address] | | | | | | [place], [place] | | | | | | [address] | | | | | | [phone] | | | +--------+ + + + [...]
--- OUTSIDE RECORDS SUMMARY | ~2019-02-14 | XMS | Encounter Summary ---
Demographics + + + | Address | GENERAL DELIVERY | | | [place] [address] | + + + | Home Phone [...] Team Providers + +------+ + | Care Waste Disposal Leakage Tester Name | Role | Phone | [...] Required | | hepatitis C | [address] | [address] | | | | | without | [address] | Ave | | | | | mention of | [place]n [place], | [place], [place] | | | | | hepatic coma | [place] [address] | [address] | | | | | Procedures | Phone: | Phone: | | | | | CONSULT TO | [phone] | [phone] | | | | | HEPATOLOGY | Fax: | Fax: | | | | | | [phone] | [phone] | +--------+ + + + + + Encounter Details +--------+---------+ + + + | Date | Type | Department | Care Team | Description | +--------+---------+ + + + | 02/27/ | Office | Digestive Health | Jeancarlos Rich MD | Chronic Hepatitis C | | 2007 | Visit | Center at [facility] [address] | [address] | without Mention of | | | | [address] | [place], [place] | Hepatic Coma | | | | Mailcode: OC8D | [address] | (Primary Dx) | | | | [place] [facility] | [phone] | | | | | and Healing, | | | | | | [address] | | | | | | [place], [place] | | | | | | [address] | | | | | | [phone] | | | +--------+---------+ + + + [...] | + + + + + | [facility] | [address] [facility] | [place] [address] | | | PATHOLOGY | [address] | | | + + + + + | [facility] | [facility] | [place] [address] | | | PATHOLOGY | [address] [...] | + + + + + | [facility] | [address] [facility] | [place] [address] | | | PATHOLOGY | [address] | | | + + + + + | [facility] | [facility] | [place] [address] | | | PATHOLOGY | [address] [...] + + | [facility] DEPARTMENT OF | [address] | [place] [address] | | | PATHOLOGY | [address] | | | + + + + + | [facility] | [address] | [place] [address] | | | PATHOLOGY | [address] | | | + + + + + documented in this encounter Visit Diagnoses + + | Diagnosis | + + | Chronic hepatitis C without mention of hepatic coma - Primary | + + documented in this encounter"
--- OUTSIDE RECORDS SUMMARY | ~2019-02-14 | XMS | Encounter Summary ---
Demographics + + + | Address | GENERAL DELIVERY | | | [place] [address] | + + + | Home Phone [...] Providers + +------+ + | Care Cloth Coverer Name | Role | Phone | + +------+ + PCP | Unavailable | + +------+ + Reason for Visit +--------+ + | Reason | Comments | +--------+ + | Pain | | +--------+ + Encounter Details +--------+ + + + + | Date | Type | Department | Care Team | Description | +--------+ + + + + | 06/13/ | Telephone | [facility] | Jeancarlos Marley MD | Pain | | 2014 | | [place] [address] [address] | [address] | | | | | [address] | [place], [place] | | | | | Mailcode: OC8D | [address] | | | | | [facility] | [phone] | | | | | and Healing, | | | | | | [address] | | | | | | [place], [place] | | | | | | [address] | | | | | | [phone] | | | +--------+ + + + [...]
--- OUTSIDE RECORDS SUMMARY | ~2019-02-14 | XMS | Encounter Summary ---
Demographics + + + | Address | GENERAL DELIVERY | | | [place] [address] | + + + | Home Phone [...] Team Providers + +------+ + | Care Range Aid Name | Role | Phone | + +------+ + PCP | Unavailable | + +------+ + Encounter Details +--------+------+ + + + | Date | Type | Department | Care Team | Description | +--------+------+ + + + | 12/23/ | Lab | Laboratory at [facility] | | RUQ Abdominal Pain; | | 2007 | | [address] | | Chronic Hepatitis C | | | | [place], [place] | | without Mention of | | | | [address] | | Hepatic Coma | | | | [phone] | | | +--------+------+ + + + [...] | + + + + + | [facility] | [address] | [place] [address] | | | PATHOLOGY | [address] | | | + + + + + | [facility] | [facility] [address] | [place] [address] | | | PATHOLOGY | [address] [...] | + + + + + | [facility] | [address] | [place] [address] | | | PATHOLOGY | [address] | | | + + + + + | [facility] DEPARTMENT OF | [address] | [place] [address] | | | PATHOLOGY | [address] [...] | + + + + + | [facility] | [address] | [place] [address] | | | PATHOLOGY | [address] | | | + + + + + | [facility] | [address] | [place] [address] | | | PATHOLOGY | [address] [...] Performed At | + + + | [id number] Estimated GFR > 60 mL/min/1.73 sq m if non- | [facility] | | [place] [id number] Estimated GFR > 60 mL/min/1.73 sq m if | DEPARTMENT OF | | [place] GFR is estimated using the MDRD equation [...] | + + + + + | [facility] | [address] | [place] [address] | | | PATHOLOGY | [address] | | | + + + + + | [facility] | [address] | [place] [address] | | | PATHOLOGY | [address] | | | + + + + + documented in this encounter Visit Diagnoses + + | Diagnosis | + + | RUQ abdominal pain Abdominal pain, right upper quadrant | + + | Chronic hepatitis C without mention of hepatic coma | + + documented in this encounter"
--- OUTSIDE RECORDS SUMMARY | ~2019-02-14 | XMS | Encounter Summary ---
Demographics + + + | Address | GENERAL DELIVERY | | | [place] [address] | + + + | Home Phone [...] Team Providers + +------+ + | Care Full Stack Web Developer Name | Role | Phone | [...] Abdominal pain | | 2007 | | [place] [address] | [address] | (liver pain) | | | | [address] | [place], [place] | | | | | Mailcode: OC8D | [address] | | | | | [facility] [facility] | [phone] | | | | | and Healing, | | | | | | [address] | | | | | | [place], [place] | | | | | | [address] | | | | | | [phone] | | | +--------+ + + + [...] + + + + | [facility] | [address] | [place] [address] | | | PATHOLOGY | [address] | | | + + + + + | [facility] | [address] | [place] [address] | | | PATHOLOGY | [address] [...] + + + + | [facility] | [address] | [place] [address] | | | PATHOLOGY | [address] | | | + + + + + | [facility] | [address] | [place] [address] | | | PATHOLOGY | [address] [...] Performed At | + + + | [id number] Estimated GFR > 60 mL/min/1.73 sq m if non- | [facility] | | [place] [id number] Estimated GFR > 60 mL/min/1.73 sq m if | DEPARTMENT OF | | [place] GFR is estimated using the MDRD equation [...] + + + + | [facility] | [address] | [place] [address] | | | PATHOLOGY | [address] | | | + + + + + | [facility] | [address] | [place] [address] | | | PATHOLOGY | [address] [...] | | | | | | spleen.COMPARISON: No | | | | | | neFINDINGS:The liver | | | | | | echogenicity is | | | | | | normal. Liver surface | | | | | | appearance and | | | | | | liversize are within | | | | | | normal limits. There | | | | | | is no focal intrahepatic | | | | | | lesionor biliary | | | | | | dilatation. The | | | | | | gallbladder is | | | | | | normal. The common | | | | | | ductmeasures 3 mm in | | | | | | diameter.The pancreas is | | | | | | obscured by overlying | | | | | | bowel gas. The spleen | | | | | | jtaawhuv26.5 cm in | | | | | [...] | | | | | respectively. There | | | | | | is no solid renal | | | | | | mass,cyst, calculi, or | | | | | | hydronephrosis. Visua | | | | | | lized portions of | | | | | [...] | | + +---------+ + + | [facility] DEPARTMENT OF | | | [...]
--- OUTSIDE RECORDS SUMMARY | ~2019-02-14 | XMS | Encounter Summary ---
Demographics + + + | Address | GENERAL DELIVERY | | | [place] [address] | + + + | Home Phone [...] Team Providers + +------+ + | Care Intake Clerk Name | Role | Phone | [...] + + | 06/19/ | Telephone | [facility] | Jeancarlos Marley MD | Pain | | 2014 | | [place] [address] | [address] | | | | | [address] | [place], [place] | | | | | Mailcode: OC8D | [address] | | | | | [facility] | [phone] | | | | | and Healing, | | | | | | [address] | | | | | | [place], [place] | | | | | | [address] | | | | | | [phone] | | | +--------+ + + + [...]
--- OUTSIDE RECORDS SUMMARY | ~2019-02-14 | XMS | Encounter Summary ---
Demographics + + + | Address | GENERAL DELIVERY | | | [place] [address] | + + + | Home Phone [...] Providers + +------+ + | Care It Systems Engineer Name | Role | Phone | + +------+ + | Lakesha [place] | PCP | | + +------+ + Encounter Details +--------+------+ + + + | Date | Type | Department | Care Team | Description | +--------+------+ + + + | 02/27/ | Lab | Laboratory at [facility] | | Chronic Hepatitis C | | 2007 | | [address] | | without Mention of | | | | [place], [place] | | Hepatic Coma | | | | [address] | | | | | | [phone] | | | +--------+------+ + + + [...] + + documented in this encounter Results [facility] - INR (PROTHROMBINTIME) (02/28/2008 9:24 [...] + + + + | [facility] | [address] | [place] [address] | | | PATHOLOGY | [address] | | | + + + + + | [facility] | [facility] [address] | [place] [address] | | | PATHOLOGY | [address] [...] | + + + + + | [facility] DEPARTMENT OF | [address] | [place] [address] | | | PATHOLOGY | [address] | | | + + + + + | [facility] | [address] | [place] [address] | | | PATHOLOGY | [address] [...] DEPARTMENT OF | [address] | [place], [place] [address] | | | PATHOLOGY | [address] | | | + + + + + | [facility] | [address] | [place] [address] | | | PATHOLOGY | [address] | | | + + + + + documented in this encounter Visit Diagnoses + + | Diagnosis | + + | Chronic hepatitis C without mention of hepatic coma | + + documented in this encounter"
--- OUTSIDE RECORDS SUMMARY | ~2019-02-14 | XMS | Encounter Summary ---
Demographics + + + | Address | GENERAL DELIVERY | | | [place] [address] | + + + | Home Phone [...] Team Providers + +------+ + | Care Branch Service Associate Name | Role | Phone | [...] Abdominal pain | | 2007 | | [place] [address] | [address] | | | | [address] | [place], [place] | | | | | Mailcode: OC8D | [address] | | | | | [place] [facility] | [phone] | | | | | and Healing, | | | | | | [address] | | | | | | [place], [place] | | | | | | [address] | | | | | | [phone] | | | +--------+ + + + [...]
--- OUTSIDE RECORDS SUMMARY | ~2019-02-14 | XMS | Encounter Summary ---
Demographics + + + | Address | GENERAL DELIVERY | | | [place] [address] | + + + | Home Phone [...] Team Providers + +------+ + | Care Registered Nurse Ambulatory Name | Role | Phone | + +------+ + | Perico Lakesha | PCP | | + +------+ + Encounter Details +--------+ + + + + | Date | Type | Department | Care Team | Description | +--------+ + + + + | 08/21/ | Hospital | Diagnostic | | | | 2008 | Encounter | Radiology at [facility] | | | | | | [address] | | | | | | [place] Mailcode: | | | | | | [id number] | | | | | | [place], | | | | | | [place] [address] | | | | | | [phone] | | | +--------+ + + + [...] | | + +---------+ + + | [facility] DEPARTMENT OF | | | | | RADIOLOGY | | | | + +---------+ + + documented in this encounter Visit Diagnoses Not on filedocumented in this encounter"
--- OUTSIDE RECORDS SUMMARY | ~2019-02-14 | XMS | Encounter Summary ---
Demographics + + + | Address | GENERAL DELIVERY | | | [place] [address] | + + + | Home Phone [...] Providers + +------+ + | Care Senior Corporate Strategy Manager Name | Role | Phone | [...] | Telephone | Urology Adult | Wang Canchoal MD | Phone communication | | 2009 | | [address] | [address] | | | | | Mailcode: [id number] | [place], [place] | | | | | [facility] | [address] | | | | | and Healing, | [phone] | | | | | [facility] | | | | | | Floor [place], [place] | | | | | | [address] | | | | | | [phone] | | | +--------+ + + + [...]
--- OUTSIDE RECORDS SUMMARY | ~2019-02-14 | XMS | Encounter Summary ---
Demographics + + + | Address | GENERAL DELIVERY | | | [place] [address] | + + + | Home Phone [...] Team Providers + +------+ + | Care Clean In Places Operator Name | Role | Phone | + +------+ + PCP | Unavailable | + +------+ + Encounter Details +--------+ + + + + | Date | Type | Department | Care Team | Description | +--------+ + + + + | 06/14/ | Document-Sc | [facility] | Jeancarlos Marley MD | | | 2015 | anned | [place] [address] | [address] | | | | | [address] | [place], [place] | | | | | Mailcode: OC8D | [address] | | | | | [facility] | [phone] | | | | | and Healing, | | | | | | [address] | | | | | | [place], [place] | | | | | | [address] | | | | | | [phone] | | | +--------+ + + + [...]
--- OUTSIDE RECORDS SUMMARY | ~2019-02-14 | XMS | Encounter Summary ---
Demographics + + + | Address | GENERAL DELIVERY | | | [place] [address] | + + + | Home Phone [...] Team Providers + +------+ + | Care Hazardous Waste Technician Name | Role | Phone | [...] | abdominal | [address] | [address] | | | | | pain | [facility] | Ave | | | | | Neurogenic | Rd | [facility] [place] | | | | | bladder | [facility] [place] | [address] | | | | | Procedures | [address] | Phone: | | | | | CONSULT TO | Phone: | [phone] | | | | | UROLOGY | [phone] | Fax: | | | | | | Fax: | [phone] | | | | | | [phone] | | +--------+--------+ + + + + Reason for Visit + + + | Reason | Comments | + + + | Catheter Problem | | + + + Encounter Details +--------+ + + + + | Date | Type | Department | Care Team | Description | +--------+ + + + + | 02/22/ | Emergency | [facility] Emergency | Fe Walter, | | | 2017 - | | Department [address] | Edith Kelley MD 900 | | | | | [facility] | [facility] | | | 02/23/ | | [facility] | [address], [place] | | | 2017 | | [place], [place] | [address] | | | | | [address] | | | | | | [phone] | | | +--------+ + + + [...] for coming to the Emergency Department at [facility] for your care. You [...] other well. -Be careful about taking other yekg-yzl-jskrxri medicines, which may contain acetaminophen or ibuprofen and could lead to toxicity. -If you have liver disease, kidney disease or stomach ulcers, the standard doses of these m edicines may be too high for you. -We expect that your pain will improve over the next few days, and do not expect that you w ill need to continue these medicines chcf. You should talk to your primary care [...] your primary care doctor for follow-up and [facility]. Care delivered in the Emergency Department should not be considered as a substitute for [facility] care and/or specialist care for ongoing medical issues, and it is important that you fo llow up as described above. Thank you for letting us care for you at the [facility] Emergency Department today. Note: [...] MARAALIYAH | [address] | [place], [place] | | | [facility] | [facility] | [address] | | | TESTS | | | [...] [facility] | [address] | [place] [address] | | | SERVICES, CORE | PARK [...] [facility] | [address] | [place] [address] | | | SERVICES, NANCY | [address] [...] + | DIAL - AIRPORT - | [address] | [place] [address] | | | [place] | | | | + + + [...] [facility] | [address] | [place] [address] | | | SERVICES, CORE | [address] [...] | + + + + + | [facility] | [address] | [place] [address] | | | NANCY MAX | [address] [...] | + + + + + | [facility] | [address] | [place] [address] | | | SERVICES, CORE | [address] [...] [facility] | [address] | [place] [address] | | | NANCY MAX | [address] [...] [facility] | [address] | [place] [address] | | | NANCY MAX | [address] [...] | + + + + + | [facility] | [address] | [place] [address] | | | SERVICES, | [address] | | | | TRANSFUSION MEDICINE | | | | + + + + + ED INFORMATION EXCHANGE (02/22/2017 8:33 PM PDT) + + | Specimen | + + | | + + + + + | Narrative | Performed At | + + + | [id number] This patient has registered at the | COLLECTIVE | | Count Includes [facility] and [facility] Emergency Department For more | MEDICAL | | information visit: | TECHNOLOGIES | | [email or web address] | | | [id number] ED Care Guidelines from [facility] Last | | | Updated: 12/03/16 2:35 PM Care Coordination: ENCOURAGE PATIENT | | | TO USE PCP FOR FOLLOW UP AND NON-EMERGENT PROBLEMS. GIVE PATIENT | | | THIS SAMMYING MACHINE OPERATOR NAME AND NUMBER FOR HELP AND QUESTIONS. MARSHALL AMADOR | | | BATCH PLANT OPERATOR [facility] [phone] These are | | | guidelines and the provider should exercise clinical judgment when | | | providing care. Care History Behavioral 12/03/16 12:[address] [facility] | | | [facility] PT IS WORKING WITH [employer] -- | | | ATTN:IVONNE DEXTER Medical/Surgical 11/03/14 12:00 AM [facility] | | | [facility] Smoker Methamphetamine abuse Recent | | | Emergency Department Visit Summary Admit Date Facility City State | | | Type Major Type Diagnoses or Chief Complaint Feb 22, 2017 [place] | | | [facility] [place] Emergency Emergency | | | 10,800. Cath issue Feb 20, 2017 [facility] | | | [facility] Emergency Emergency dizzy Generalized | | | Body Aches Neuromuscular dysfunction of bladder, unspecified | | | Feb 18, 2017 [facility] [place]. [place] Emergency Emergency | | | Other stimulant abuse, uncomplicated Other vallez filter operator | | | (current) drug therapy Nicotine [...] Urinary Problem Sep | | | 2016 [facility] [place] | | | Emergency Emergency Chief Complaint: URO MALE Sep 10, | | | 2016 [facility] [place] | | | Emergency Emergency Bipolar disorder, unspecified | | | Nicotine dependence, cigarettes, uncomplicated Other stimulant | | | dependence, uncomplicated Dec 30, 2016 [facility] | | | [place] Emergency Emergency catheter issues | | | Urinary Catheter Insertion Other urethritis Retention of | | | urine, unspecified Other stimulant abuse, uncomplicated | | | Dec 03, 2016 [facility] [place] Emergency Emergency | | | Bipolar disorder, unspecified Schizoaffective disorder, | | | unspecified Other chcf (current) drug therapy | | | Nicotine dependence, unspecified, uncomplicated Anxiety | | | disorder, unspecified Allergy status to other antibiotic agents | | | status Allergy status to other drugs, medicaments and | | | biological substances status Other fatigue Delusional | | | disorders Essential (primary) hypertension Nov 24, 2016 | | | [facility] [place] Emergency Emergency Encounter | | | for other general examination Allergy status to other drugs, | | | medicaments and biological substances status Bipolar | | | disorder, unspecified Other chcf (current) drug therapy | | | Major depressive disorder, single episode, unspecified | | | Essential (primary) hypertension Recent Inpatient Visit | | | Summary No recorded inpatient visits. E.D. Visit Count (12 mo.) | | | Facility Visits [facility] 2 Count Includes [facility] | | | and [address] | | | Hospital [address] | | | [facility] ED [address] [facility] 15 Total 23 Note: | | | Visits indicate total known visits. Care Providers Provider | | | PRC Type Phone Fax Service Dates Fam Donnelly MD, MD Primary Care | | | Current [facility] MENTAL HEALTH, | | | Mental Health Provider Nov 15, 2016 - | | | Current PAULINA Orellana Case or Manager Behavior | | | Current The above information [...] for | | | additional information. 2017 [employer] - | | | [place], [place] - [email or web address] | | + + + + + | Procedure Note | + + | Service Account, Rtf Results Inbound - 02/22/2017 8:34 PM PDT Formatting of this | | note might be different from the original.NIRANJAN?NOTIFICATION?02/22/2017 20:33?ROMERO, | | AALIYAH? patient has registered at the Count Includes [facility] An[employer] | | [place] Emergency Department For more information visit: | | [email or web address] ED Care | | [facility]: 12/03/16 2:35 PM Care | | Coordination:ENCOURAGE PATIENT TO USE PCP FOR FOLLOW UP AND NON-EMERGENT PROBLEMS.GIVE | | PATIENT THIS SAMMYING MACHINE OPERATOR NAME AND NUMBER FOR HELP AND QUESTIONS.MARSHALL AMADORED CASE | | STATIONARY BOILER FIREMAN [phone] are guidelines and the provider should | | exercise clinical judgment when providing care.Care HistoryBehavioral12/03/16 12:00 AM | | [facility] -- ATTN:? IVONNE | | CONKEYMedical/Surgical11/03/14 12:00 AM Jonn Herman | | HospitalSmokerMethamphetamine abuseRecent Emergency Department Visit SummaryAdmit Date | | Facility City State Type Major Type Diagnoses or Chief Complaint Feb 22, 2017 [place] | | [facility] [place] Emergency Emergency 10,800. Cath issue Feb | | 2016 [facility] [place]. [place] Emergency Emergency dizzy Generalized | | Body Aches Neuromuscular dysfunction of bladder, unspecified Feb 18, 2017 [facility]Jan | | Jason Aguilar [place] Emergency Emergency Other stimulant abuse, uncomplicated | | Other vallez filter operator (current) drug therapy Nicotine dependence, unspecified, | | uncomplicated Anxiety disorder, unspecified Foreign body in bladder, initial | | encounter Bipolar disorder, unspecified Allergy status to other drugs, medicaments | | and biological substances status Other nonmedicinal substance allergy status | | Allergy status to other antibiotic agents status Hematuria, unspecified Feb 16, 2017 | | [facility] [place] Emergency Emergency Chief Complaint: Urinary Problem Jan | 2016 [facility] [place] Emergency Emergency Chief | | Complaint: URO MALE Jan 25, 2017 [facility] [place] Emergency | | Emergency Bipolar disorder, unspecified Nicotine dependence, cigarettes, | | uncomplicated Other stimulant dependence, uncomplicated Dec 30, 2016 [facility] | | [place]. [place] Emergency Emergency catheter issues Urinary Catheter | | Insertion Other urethritis Retention of urine, unspecified Other stimulant | | abuse, uncomplicated Dec 03, [address] [facility] [place] Emergency Emergency | | Bipolar disorder, unspecified Schizoaffective disorder, unspecified Other long | | term (current) drug therapy Nicotine dependence, unspecified, uncomplicated | | Anxiety disorder, unspecified Allergy status to other antibiotic agents status | | Allergy status to other drugs, medicaments and biological substances status Other | | fatigue Delusional disorders Essential (primary) hypertension Nov 24, [address] [facility] | | [place] Emergency Emergency Encounter for other general examination | | Allergy status to other drugs, medicaments and biological substances status | | Bipolar disorder, unspecified Other vallez filter operator (current) drug therapy Major | | depressive disorder, single episode, unspecified Essential (primary) hypertension | | Recent Inpatient Visit SummaryNo recorded inpatient visits. E.D. Visit Count (12 | | mo.)Facility Visits [address] | | [address] 1 [facility] 1 [facility] | | [facility] 2 [facility] ED [address] [facility] 15 Total 23 Note: | | Visits indicate total known visits. Care ProvidersProvider [facility] Type Phone Fax Service | | Dates Fam Donnelly MD, MD Primary Care Current [facility] | | MENTAL HEALTH, Mental Health Provider Nov 15, 2016 - | | Current PAULINA Orellana Case or Manager Behavior ) [phone] Current | | The above information is provided for the sole purpose of patient treatment. Use of this | | information beyond the terms of Data Sharing Memorandum of Understanding and License | | Agreement is prohibited. In certain cases not all visits may be represented. Consult the | | aforementioned facilities for additional information. ? 2017 [employer] | | [employer] - [place], [place] - [email or web address] | | Nicotine dependence, cigarettes, uncomplicated | | Other stimulant dependence, uncomplicated | | | |Dec [facility] [place] [facility] Emergency | | catheter issues | | Urinary Catheter Insertion | | Other urethritis | | Retention of urine, unspecified | | Other stimulant abuse, uncomplicated | | | |Dec 03, 2016 [facility] [place] [place] [facility] Emergency | | Bipolar disorder, unspecified | | Schizoaffective disorder, unspecified | | Other vallez filter operator (current) drug therapy | | Nicotine dependence, unspecified, uncomplicated | | Anxiety disorder, unspecified | | Allergy status to other antibiotic agents status | | Allergy status to other drugs, medicaments and biological substances status | | Other fatigue | | Delusional disorders | | Essential (primary) hypertension | | | |Nov 24, [address] [facility] [place] Emergency Emergency | | [...] mo.) | |Facility Visits | |[facility] 2 | |Count Includes [facility] [place] [facility] | |[facility] 1 | |[facility] 1 | |[facility] 2 | |[facility] | |[facility] 15 | |Total 23 | |Note: Visits indicate total known visits. | | | |Care Providers | |Provider PRC Type Phone Fax Service Dates | |Fam Donnelly MD, Primary Care Current | |[facility], Mental Health Provider Nov 15, 2016 - Current | |PAULINA Orellana Case or Manager Behavior Current | | | |The above information is provided for the sole purpose of patient treatment. Use of this in formation beyond the terms of Data Sharing Memorandum of Understanding and License Agreement is prohibited. In | |certain cases not all visits may be represented. Consult the aforementioned facilities for additional information. | |? 2017 [employer] - [place], [place] - [email or web address] | + + + + + + + | Performing | Address | City/State/Zipcode | Phone Number | | Organization | | | | + + + + + | [facility] [facility] | [address], | [place], [place] | [phone] | | TECHNOLOGIES | [address] | [address] | | + + + + + [...]
--- OUTSIDE RECORDS SUMMARY | ~2019-02-14 | XMS | Encounter Summary ---
Demographics + + + | Address | GENERAL DELIVERY | | | [place] [address] | + + + | Home Phone [...] Team Providers + +------+ + | Care Labor Utilization Superintendent Name | Role | Phone | + [...] Abdominal pain | | 2008 | | [place] [address] [address] | [address] | | | | | [address] | [place], [place] | | | | | Mailcode: OC8D | [address] | | | | | [facility] | [phone] | | | | | and [place], | | | | | | [address] | | | | | | [place], [place] | | | | | | [address] | | | | | | [phone] | | | +--------+ + + + [...]
--- OUTSIDE RECORDS SUMMARY | ~2019-02-14 | XMS | Encounter Summary ---
Demographics + + + | Address | GENERAL DELIVERY | | | [place] [address] | + + + | Home Phone [...] Team Providers + +------+ + | Care Control Cabinet Assembler Name | Role | Phone | [...] | | | | Mailcode: CH10U | [place], [place] | and counseling | | | | [facility] | [address] | | | | | and Healing, | [phone] | | | | | [facility] | | | | | | Floor [place], [place] | | | | | | [address] | | | | | | [phone] | | | +--------+ + + + [...]
--- OUTSIDE RECORDS SUMMARY | ~2019-02-14 | XMS | Encounter Summary ---
Demographics + + + | Address | GENERAL DELIVERY | | | [place] [address] | + + + | Home Phone [...] Team Providers + +------+ + | Care Live In Housekeeper Nanny Name | Role | Phone | + [...] Hepatitis C | | 2007 | | [place] [address] [address] | [address] | without Mention of | | | | [address] | [place], [place] | Hepatic Coma | | | | Mailcode: OC8D | [address] | (Primary Dx) | | | | [place] [facility] | [phone] | | | | | and Healing, | | | | | | [address] | | | | | | [place], [place] | | | | | | [address] | | | | | | [phone] | | | +--------+ + + + [...] Performed At | + + + | [id number] Estimated GFR > 60 mL/min/1.73 sq m if non- | [facility] | | [id number] Estimated GFR > 60 mL/min/1.73 sq m [...] + | [facility] DEPARTMENT | [address] | [place] [address] | | | PATHOLOGY | [address] | | | + + + + + | [facility] | [address] | [place] [address] | | | PATHOLOGY | [address] [...] | [facility] DEPARTMENT OF | [address] | [place] [address] | | | PATHOLOGY | [address] | | | + + + + + | [facility] | [facility] [address] | [place] [address] | | | PATHOLOGY | [address] [...] | + + + + + | [facility] DEPARTMENT OF | [address] | [place] [address] | | | PATHOLOGY | [address] | | | + + + + + | [facility] DEPARTMENT OF | [address] | [place] [address] | | | PATHOLOGY | [address] [...] | + + + + + | [facility] | [address] | [place] [address] | | | PATHOLOGY | [address] | | | + + + + + | [facility] | [address] | [place] [address] | | | PATHOLOGY | [address] [...] [facility] DEPARTMENT OF | [address] | [place] [address] | | | PATHOLOGY | [address] | | | + + + + + | [facility] DEPARTMENT OF | [address] | [place] [address] | | | PATHOLOGY | [address] [...] by | | | | | | [facility] | | | | | | [employer]. | | | | + + + + + + + + | Specimen | + + | | + + + + + + + | Performing | Address | City/State/Zipcode | Phone Number | | Organization | | | | + + + + + | [facility] | [address] | [place] [address] | | | LABORATORY | | | [...] + + + | Test performed by [employer] [employer]. | | | | | + + + + + + + + | Performing | Address | City/State/Zipcode | Phone Number | | Organization | | | | + + + + + | [facility] | [address] | [place] [address] | | | LABORATORY | | | [...] change effective 03/08/07 | | | [facility] ([facility]) | | | [facility] [address] [facility] | | | [place] [address] | | + + + + + + + + | Performing | Address | City/State/Zipcode | Phone Number | | Organization | | | | + + + + + | [facility] | [address] | [place] [address] | | | LABORATORY | | | [...] Iron and TIBC, Serum Test performed by [facility] | | | [facility] [employer]. | | + + + + + + + + | Performing | Address | City/State/Zipcode | Phone Number | | Organization | | | | + + + + + | [facility] | [address] | [place] [address] | | | LABORATORY | | | [...] Act | | | | | | [id number]. The DNA | | | | | [...] + + + + | [facility] | [address] [employer] | [place] [address] | | | [facility] | [address] | | | | | [place]. | | | + + + + + documented in this encounter Visit Diagnoses + + | Diagnosis | + + | Chronic hepatitis C without mention of hepatic coma - Primary | + + documented in this encounter
--- OUTSIDE RECORDS SUMMARY | ~2019-02-14 | XMS | Encounter Summary ---
Demographics + + + | Address | GENERAL DELIVERY | | | [place] [address] | + + + | Home Phone [...] Providers + +------+ + | Care Health Care Recruiter Name | Role | Phone | + +------+ + PCP | Unavailable | + +------+ + Encounter Details +--------+ + + + + | Date | Type | Department | Care Team | Description | +--------+ + + + + | 06/15/ | Document-Sc | [facility] | Jeancarlos Marley MD | | | 2015 | anned | [place] [address] | [address] | | | | | [address] | [place], [place] | | | | | Mailcode: OC8D | [address] | | | | | [facility] | [phone] | | | | | and Healing, | | | | | | [address] | | | | | | [place], [place] | | | | | | [address] | | | | | | [phone] | | | +--------+ + + + [...]
--- OUTSIDE RECORDS SUMMARY | ~2019-02-14 | XMS | Encounter Summary ---
Demographics + + + | Address | GENERAL DELIVERY | | | [place] [address] | + + + | Home Phone [...] Team Providers + +------+ + | Care Inventory Associate Name | Role | Phone | + +------+ + | [place] | PCP | | + +------+ + Encounter Details +--------+ + + + + | Date | Type | Department | Care Team | Description | +--------+ + + + + | 08/11/ | Telephone | [facility] | Jeancarlos Marley MD | | | 2008 | | Center at [facility] [address] | [address] | | | | [address] | [place], [place] | | | | | Mailcode: Center | [address] | | | | | for Health and | [phone] | | | | | [facility] 2 | | | | | | [place], [place] | | | | | | [address] | | | | | | [phone] | | | +--------+ + + + [...] | + + + + + | [facility] | [address] | [place] [address] | | | PATHOLOGY | [address] | | | + + + + + | [facility] | [address] | [place] [address] | | | PATHOLOGY | [address] [...] | + + + + + | [facility] DEPARTMENT OF | [address] | [place] [address] | | | PATHOLOGY | [address] | | | + + + + + | [facility] OF | [address] | [place] [address] | | | PATHOLOGY | [address] [...] Performed At | + + + | [id number] Estimated GFR > 60 mL/min/1.73 sq m if non- | [facility] | | Trinid[place] [id number] Estimated GFR > 60 mL/min/1.73 sq m if | DEPARTMENT | | Trinidadian GFR is estimated using the MDRD equation [...] | + + + + + | [facility] DEPARTMENT | [address] | [place] [address] | | | PATHOLOGY | [address] | | | + + + + + | [facility] | [address] | [place] [address] | | | PATHOLOGY | [address] | | | + + + + + documented in this encounter Visit Diagnoses + + | Diagnosis | + + | Chronic hepatitis C without mention of hepatic coma - Primary | + + documented in this encounter"
--- OUTSIDE RECORDS SUMMARY | ~2019-02-14 | XMS | Encounter Summary ---
Demographics + + + | Address | GENERAL DELIVERY | | | [place] [address] | + + + | Home Phone [...] Providers + +------+ + | Care Dredge Pipeman Name | Role | Phone | + [...] | | | | Mailcode: CH10U | [place], [place] | | | | | [facility] | [address] | | | | | and Healing, | [phone] | | | | | Building | | | | | | Floor [place], [place] | | | | | | [address] | | | | | | [phone] | | | +--------+ + + + [...]
--- OUTSIDE RECORDS SUMMARY | ~2019-02-14 | XMS | Encounter Summary ---
Demographics + + + | Address | GENERAL DELIVERY | | | [place] [address] | + + + | Home Phone [...] Providers + +------+ + | Care Social Media Marketing Manager Name | Role | Phone | [...] Abdominal pain | | 2007 | | [place] [address] [address] | [address] | (liver pain) | | | | [address] | [place], [place] | | | | | Mailcode: OC8D | [address] | | | | | [facility] | [phone] | | | | | and Healing, | | | | | | [address] | | | | | | [place], [place] | | | | | | [address] | | | | | | [phone] | | | +--------+ + + + [...] [facility] | [address] [facility] | [place] [address] | | | PATHOLOGY | [address] | | | + + + + + | [facility] | [address] [facility] | [place] [address] | | | PATHOLOGY | [address] [...] [facility] | [address] [facility] | [place] [address] | | | PATHOLOGY | [address] | | | + + + + + | [facility] | [address] [facility] | [place] [address] | | | PATHOLOGY | [address] [...] Performed At | + + + | [id number] Estimated GFR > 60 mL/min/1.73 sq m if non- | [facility] | | [place] [address] Estimated GFR > 60 mL/min/1.73 sq m if | DEPARTMENT OF | | [place] GFR is estimated using the MDRD equation [...] | [facility] | [address] | [place] [address] | | | PATHOLOGY | [address] | | | + + + + + | [facility] | [address] | [place] [address] | | | PATHOLOGY | [address] [...] spleen | | | | | | ejeubihh20.5 cm in | | | | | [...] | | + +---------+ + + | [facility] DEPARTMENT OF | | | | | [...]
--- OUTSIDE RECORDS SUMMARY | ~2019-02-14 | XMS | Encounter Summary ---
Demographics + + + | Address | GENERAL DELIVERY | | | [place] [address] | + + + | Home Phone [...] Team Providers + +------+ + | Care Packer Operator Automatic Name | Role | Phone | + [...] | | | | | retention | [place] | [address] | | | | | Urinary | STATE | Ave | | | | | Retention | HOSPITAL | [place], [place] | | | | | Procedures | [address] | [address] | | | | | REQUEST TO | [address] | Phone: | | | | | SURGERY | [place] | [phone] | | | | | IRB COMPLIANCE COORDINATOR | [address] | Fax: | | | | | [place] | Phone: | [phone] | | | | | INCISE/DRAIN | [phone] | | | | | | BLADDER | Fax: | | | | | | suprapubic | [phone] | | | | | | cystostomy [...] | | | | | | | [address] | | | | | | | Ave | | | | | | | [place], [place] | | | | | | | [address] | | | | | | | Phone: | | | | | | | [phone] | | | | | | | Fax: | | | | | | | [phone] | +--------+--------+ + + + + Encounter [...] | | | | Mailcode: CH10U | [place], [place] | | | | | [facility] | [address] | | | | | and Healing, | [phone] | | | | | | | | | | | Floor [facility] [place] | | | | | | [address] | | | | | | [phone] | | | +--------+ + + + [...] Armand Ordonez MD - 01/22/2011 12:51 PM [id number], former patient of Dr. Canchola, is an inpat ient at [facility] for at least 3 more [...] | + +--------+ + + + | [place] CYSTOURETHROSCOPY | Routin | 01/22/2011 | Urinary retention | Results for this | | | e | | | procedure are in the | | | | | | results section. | + +--------+ + + + documented in this encounter Results [place] CYSTOURETHROSCOPY (01/22/2011) + + + | Narrative [...]
--- OUTSIDE RECORDS SUMMARY | ~2019-02-14 | XMS | Encounter Summary ---
Demographics + + + | Address | GENERAL DELIVERY | | | [place] [address] | + + + | Home Phone [...] Team Providers + +------+ + | Care Sample Room Supervisor Name | Role | Phone | [...] | | | | | | [employer], | | | | | | [place] [address] | | | | | | [phone] | | | +--------+ + + + [...] | | + +---------+ + + | [facility] DEPARTMENT OF | | | | | RADIOLOGY | | | | + +---------+ + + documented in this encounter Visit Diagnoses Not on filedocumented in this encounter"
--- OUTSIDE RECORDS SUMMARY | ~2019-02-14 | XMS | Encounter Summary ---
Demographics + + + | Address | GENERAL DELIVERY | | | [place] [address] | + + + | Home Phone [...] Providers + +------+ + | Care Supervisor Brine Name | Role | Phone | + [...] | | | | Mailcode: CH10U | [place], [place] | | | | | [facility] | [address] | | | | | and Healing, | [phone] | | | | | [facility] | | | | | | Floor [place], [place] | | | | | | [address] | | | | | | [phone] | | | +--------+ + + + [...]
--- OUTSIDE RECORDS SUMMARY | ~2019-02-14 | XMS | Encounter Summary ---
Demographics + + + | Address | GENERAL DELIVERY | | | [place] [address] | + + + | Home Phone [...] Team Providers + +------+ + | Care Test Car Driver Name | Role | Phone | + +------+ + | Etienne Barnes PA-C | PCP | | + +------+ + Encounter Details +--------+ + + + + | Date | Type | Department | Care Team | Description | +--------+ + + + + | 06/07/ | Document-Sc | UNKNOWN DEPARTMENT | Unknown . | | | 2014 | anned | [address] [facility] | | | | | | [address] | | | | | | [place], [place] | | | | | | [address] | | | +--------+ + + + [...]
--- OUTSIDE RECORDS SUMMARY | ~2019-02-14 | XMS | Encounter Summary ---
Demographics + + + | Address | GENERAL DELIVERY | | | [place] [address] | + + + | Home Phone [...] Team Providers + +------+ + | Care Riding Instructor Name | Role | Phone | [...] | | | | | | | [address] | | | | | | | Ave | | | | | | | [place], [place] | | | | | | | [address] | | | | | | | Phone: | | | | | | | [phone] | | | | | | | Fax: | | | | | | | [phone] | +--------+--------+ + + + + Encounter Details +--------+ + + + + | Date | Type | Department | Care Team | Description | +--------+ + + + + | 03/17/ | Procedure | Urology Adult | Armand Ordonez MD | Follow-up visit | | 2010 | | [address] | [address] | | | | | Mailcode: CH10U | [place], [place] | | | | | [facility] | [address] | | | | | and Healing, | [phone] | | | | | | | | | | | Floor [facility] [place] | | | | | | [address] | | | | | | [phone] | | | +--------+ + + + [...] month Facility will likely change care to [place] due to distance. documented in this encounter Plan of Treatment Not on filedocumented as of this encounter Visit Diagnoses + + | Diagnosis | + + | Urinary retention - Primary Retention of urine, unspecified | + + documented in this encounter"
--- OUTSIDE RECORDS SUMMARY | ~2019-02-14 | XMS | Encounter Summary ---
Demographics + + + | Address | GENERAL DELIVERY | | | [place] [address] | + + + | Home Phone [...] Team Providers + +------+ + | Care Shuttle Filler Name | Role | Phone | + +------+ + | [place] | PCP | | + +------+ + Encounter Details +--------+ + + + + | Date | Type | Department | Care Team | Description | +--------+ + + + + | 02/27/ | Telephone | [facility] | Jeancarlos Marley MD | | | 2007 | | [place] [address] [address] | [address] | | | | | [address] | [place], [place] | | | | | Mailcode: OC8D | [address] | | | | | [facility] | [phone] | | | | | and Healing, | | | | | | [address] | | | | | | [place], [place] | | | | | | [address] | | | | | | [phone] | | | +--------+ + + + [...]
--- OUTSIDE RECORDS SUMMARY | ~2019-02-14 | XMS | Encounter Summary ---
Demographics + + + | Address | GENERAL DELIVERY | | | [place] [address] | + + + | Home Phone [...] Providers + +------+ + | Care Nursing Technician Name | Role | Phone | [...] | | | | | retention | [place] | [address] | | | | | Urinary | STATE | Ave | | | | | Retention | HOSPITAL | [place], [place] | | | | | Procedures | [address] | [address] | | | | | REQUEST TO | [address] | Phone: | | | | | SURGERY | [place] | [phone] | | | | | WOODWORKING MACHINE FEEDER | [address] | Fax: | | | | | [place] | Phone: | [phone] | | | | | INCISE/DRAIN | [phone] | | | | | | BLADDER | Fax: | | | | | | suprapubic | [phone] | | | | | | cystostomy [...] | | | | | | | [address] | | | | | | | Ave | | | | | | | [place], [place] | | | | | | | [address] | | | | | | | Phone: | | | | | | | [phone] | | | | | | | Fax: | | | | | | | [phone] | +--------+--------+ + + + + Encounter [...] | | | | Mailcode: CH10U | [place], [place] | | | | | [facility] | [address] | | | | | and Healing, | [phone] | | | | | | | | | | | Floor [facility] [place] | | | | | | [address] | | | | | | [phone] | | | +--------+ + + + [...] Armand Ordonez MD - 01/22/2011 12:51 PM [id number], former patient of Dr. Canchola, is an inpat ient at [facility] for at least 3 more years. [...]
--- OUTSIDE RECORDS SUMMARY | ~2019-02-14 | XMS | Encounter Summary ---
Demographics + + + | Address | GENERAL DELIVERY | | | [place] [address] | + + + | Home Phone [...] Team Providers + +------+ + | Care Windows Security Analyst Name | Role | Phone | [...] | | | | Mailcode: CH10U | [place], [place] | | | | | [facility] | [address] | | | | | and [place], | [phone] | | | | | [facility] | | | | | | Floor [place], [place] | | | | | | [address] | | | | | | [phone] | | | +--------+ + + + [...]
--- OUTSIDE RECORDS SUMMARY | ~2019-02-14 | XMS | Encounter Summary ---
Demographics + + + | Address | GENERAL DELIVERY | | | [place] [address] | + + + | Home Phone [...] Team Providers + +------+ + | Care Metallurgy Teacher Name | Role | Phone | [...] | | | | Mailcode: CH10U | [place], [place] | | | | | [facility] | [address] | | | | | and Healing, | [phone] | | | | | | | | | | | Floor [place], [place] | | | | | | [address] | | | | | | [phone] | | | +--------+ + + + [...]
--- OUTSIDE RECORDS SUMMARY | ~2019-02-14 | XMS | Encounter Summary ---
Demographics + + + | Address | GENERAL DELIVERY | | | [place] [address] | + + + | Home Phone [...] Team Providers + +------+ + | Care Upper Leather Cutter Name | Role | Phone | + +------+ + PCP | Unavailable | + +------+ + Reason for Visit + + + | Reason | Comments | + + + | Blood Test Results | Outside labs from [facility] 06/08/14. | + + + Encounter Details +--------+ + + + + | Date | Type | Department | Care Team | Description | +--------+ + + + + | 06/13/ | Documentati | Digestive Health | Jeancarlos Marley MD | Blood Test Results | | 2014 | on | Center at [facility] [address] | [address] | (Outside labs from | | | | [address] | [place], [place] | [facility] | | | | Mailcode: OC8D | [address] | 06/08/14.) | | | | [facility] | [phone] | | | | | and Healing, | | | | | | [address] | | | | | | [place], [place] | | | | | | [address] | | | | | | [phone] | | | +--------+ + + + [...] | + +---------+ + + | NON [facility] LAB | | | | + +---------+ + + documented in this encounter Visit Diagnoses Not on filedocumented in this encounter"
--- OUTSIDE RECORDS SUMMARY | ~2019-02-14 | XMS | Encounter Summary ---
Demographics + + + | Address | GENERAL DELIVERY | | | [place] [address] | + + + | Home Phone [...] Team Providers + +------+ + | Care Psychiatric Nursing Aide Name | Role | Phone | + [...] | | | | Mailcode: CH10U | [place], [place] | and counseling | | | | [facility] | [address] | | | | | and Healing, | [phone] | | | | | [facility] | | | | | | Floor [place], [place] | | | | | | [address] | | | | | | [phone] | | | +--------+ + + + [...]
--- OUTSIDE RECORDS SUMMARY | ~2019-02-14 | XMS | Encounter Summary ---
Demographics + + + | Address | GENERAL DELIVERY | | | [place] [address] | + + + | Home Phone [...] Team Providers + +------+ + | Care Agriscience Teacher Name | Role | Phone | [...] abd u/s | | 2007 | | [place] at [facility] [address] | [address] | order faxed/mailed) | | | | [address] | [place], [place] | | | | | Mailcode: [id number] | [address] | | | | | [facility] | [phone] | | | | | and Terrence, | | | | | | [address] | | | | | | [place], [place] | | | | | | [address] | | | | | | [phone] | | | +--------+ + + + [...]
--- OUTSIDE RECORDS SUMMARY | ~2019-02-14 | XMS | Encounter Summary ---
Demographics + + + | Address | GENERAL DELIVERY | | | [place] [address] | + + + | Home Phone [...] Team Providers + +------+ + | Care Washing Machine Repairer Name | Role | Phone | + [...] | | | | Mailcode: CH10U | [place], [place] | | | | | [facility] | [address] | | | | | and Healing, | [phone] | | | | | Building | | | | | | Floor [place], [place] | | | | | | [address] | | | | | | [phone] | | | +--------+ + + + [...]
--- OUTSIDE RECORDS SUMMARY | ~2019-02-14 | XMS | Encounter Summary ---
Demographics + + + | Address | GENERAL DELIVERY | | | [place] [address] | + + + | Home Phone [...] Team Providers + +------+ + | Care Clubhouse Attendant Name | Role | Phone | + +------+ + | Etienne Barnes PA-C | PCP | | + +------+ + Encounter Details +--------+ + + + + | Date | Type | Department | Care Team | Description | +--------+ + + + + | 09/14/ | Document-Sc | UNKNOWN DEPARTMENT | Unknown . | | | 2014 | anned | [address] [facility] | | | | | | [address] | | | | | | [place], [place] | | | | | | [address] | | | +--------+ + + + [...]
--- OUTSIDE RECORDS SUMMARY | ~2019-02-14 | XMS | Clinical Summary ---
Demographics + + + | Address | [address] | | | [place] [address] | + + + | Home Phone | | + + + | Preferred Language | Unknown | + + + | Marital Status | | + + + | Latter Day Affiliation | Unknown | + + + | Race | Unknown | + + + | Ethnic Group | Unknown | + + + Author + + + | Author | [facility] (Historical as of | | | 01-01-19) | + + + | Organization | [facility] (Historical as of | | | 01-01-19) [...] Providers + +------+ + | Care Account Assistant Name | Role | Phone | [...]
--- OUTSIDE RECORDS SUMMARY | ~2019-02-14 | XMS | Encounter Summary ---
Demographics + + + | Address | GENERAL DELIVERY | | | [place] [address] | + + + | Home Phone [...] Team Providers + +------+ + | Care Baggage Porter Head Name | Role | Phone | + [...] | | | | Mailcode: CH10U | [place], [place] | | | | | [facility] | [address] | | | | | and Healing, | [phone] | | | | | [facility] | | | | | | Floor [place], [place] | | | | | | [address] | | | | | | [phone] | | | +--------+ + + + [...]
--- OUTSIDE RECORDS SUMMARY | ~2019-02-14 | XMS | Encounter Summary ---
Demographics + + + | Address | GENERAL DELIVERY | | | [place] [address] | + + + | Home Phone [...] Team Providers + +------+ + | Care Global Expansion Sales Director Name | Role | Phone | [...] Required | | hepatitis C | [address] | [address] | | | | | without | [address] | Ave | | | | | mention of | [place], | [place], [place] | | | | | hepatic coma | [place] [address] | [address] | | | | | Procedures | Phone: | Phone: | | | | | CONSULT TO | [phone] | [phone] | | | | | HEPATOLOGY | Fax: | Fax: | | | | | | [phone] | [phone] | +--------+ + + + + + Encounter Details +--------+---------+ + + + | Date | Type | Department | Care Team | Description | +--------+---------+ + + + | 01/25/ | Office | Digestive Health | Jeancarlos Rich MD | Chronic hepatitis C | | 2011 | Visit | Center at [facility] [address] | [address] | without mention of | | | | [address] | [place], [place] | hepatic coma | | | | Mailcode: OC8D | [address] | (Primary Dx) | | | | [place] [facility] | [phone] | | | | | and Healing, | | | | | | [address] | | | | | | [place], [place] | | | | | | [address] | | | | | | [phone] | | | +--------+---------+ + + + [...] infected in 2002 1.4)Obese 1.5) committed to [facility] in [place] until 2014 1.6 ) no liver biopsy to date 1.7) vaccinated for HAV/HBV in the past PAST MEDICAL HISTORY 2) HTN 3) Schizophrenia and anxiety:[facility] 4) obesity Current Outpatient [...] interim he has been committed to the [facility] facility. At this time he has no clinical evidence of cirrhosis. Unfortunat birgit the current HCV treatment regimen still includes interferon, which will exacerbate any u nderlying psychiatric issues. Unless he can be safely watched and protected in the [facility], there will not be a way to use interferon-based therapy. It would be unreasonable to consider a liver biopsy (can be done in [place] thru radiology, ie ultrasound guided) to asses s degree of liver fibrosis, before even contemplating any therapy. Recommend thru Drs. Robin/Mike patients get the followin. CMP, CBC, plts, diff, INR 2. Decide if patient can be treated safely in [facility] with interferon regimen. If possible, would recommend liver biopsy (in [place]) and then will results in hand [...]
--- OUTSIDE RECORDS SUMMARY | ~2019-02-14 | XMS | Encounter Summary ---
Demographics + + + | Address | GENERAL DELIVERY | | | [place] [address] | + + + | Home Phone [...] Providers + +------+ + | Care Deliverer Pharmacy Name | Role | Phone | + [...] abd u/s | | 2007 | | [place] at [facility] [address] | [address] | order faxed/mailed) | | | | [address] | [place], [place] | | | | | Mailcode: OC8Gigi | [address] | | | | | [facility] | [phone] | | | | | and Terrence, | | | | | | [address] | | | | | | [place], [place] | | | | | | [address] | | | | | | [phone] | | | +--------+ + + + [...]
--- OUTSIDE RECORDS SUMMARY | ~2019-02-14 | XMS | Encounter Summary ---
Demographics + + + | Address | GENERAL DELIVERY | | | [place] [address] | + + + | Home Phone [...] Providers + +------+ + | Care International Logistics Coordinator Name | Role | Phone | [...] | | | | | HOSPITAL | [place], [place] | | | | | | [address] | [address] | | | | | | [address] | Phone: | | | | | | [place], [place] | [phone] | | | | | | [address] | Fax: | | | | | | Phone: | [phone] | | | | | | [phone] | | | | | | | Fax: | | | | | | | [phone] | | +--------+--------+ + + + + [...] | | | | Mailcode: CH10U | [place], [place] | Voiding dysfunction | | | | [facility] | [address] | | | | | and Healing, | [phone] | | | | | Building | | | | | | Floor [place], [place] | | | | | | [address] | | | | | | [phone] | | | +--------+---------+ + + + [...] He is currently an inpatient in the [facility] for schizo-affective disorder. Since the onset [...] [facility] | | | | | | ([address] [facility]) | | | | | | [facility] | | | | | | [facility] | | | | | | [address] | | | | | | [address] | | | | | | [place] | | | | | | , [place] [address] | | | | + + + + + + + + | Specimen | + + | Urine - Catheter - | | single | + + + + + + + | Performing | Address | City/State/Zipcode | Phone Number | | Organization | | | | + + + + + | [facility] | [address] | [place] [address] | | | [facility] | | | | + + + + + documented in this encounter Visit Diagnoses + + | Diagnosis | + + | Retention of urine, unspecified | + + | Voiding dysfunction Unspecified disorder of urethra and urinary tract | + + documented in this encounter
--- OUTSIDE RECORDS SUMMARY | ~2019-02-14 | XMS | Encounter Summary ---
Demographics + + + | Address | GENERAL DELIVERY | | | [place] [address] | + + + | Home Phone [...] + +------+ + | Care Web Services Professional Name | Role | Phone | [...] Required | | hepatitis C | [address] | [address] [facility] | | | | | without | [address] | Ave | | | | | mention of | [place], | [place], [place] | | | | | hepatic coma | [place] [address] | [address] | | | | | Procedures | Phone: | Phone: | | | | | CONSULT TO | [phone] | [phone] | | | | | HEPATOLOGY | Fax: | Fax: | | | | | | [phone] | [phone] | +--------+ + + + + + Encounter Details +--------+---------+ + + + | Date | Type | Department | Care Team | Description | +--------+---------+ + + + | 06/16/ | Office | Digestive Health | Jeancarlos Marley MD | Chronic Hepatitis C | | 2007 | Visit | Center at [facility] [address] | [address] | without Mention of | | | | [address] | [place], [place] | Hepatic Coma | | | | Mailcode: OC8D | [address] | (Primary Dx) | | | | [place] [facility] | [phone] | | | | | and Healing, | | | | | | [address] | | | | | | [place], [place] | | | | | | [address] | | | | | | [phone] | | | +--------+---------+ + + + [...] | | | | | determined byjamia [facility] | | | | | | [...] Act | | | | | | [id number]. The [facility] | | | | | | Diagnostic Laboratory is | | | | | | a fully licensed and/ | | | | | | oraccredited clinical | | | | | | laboratory under CLIA, | | | | | | [place], and the State of | | | | | | [place]. | | | | + + + + + + + + | Specimen | + + | | + + + + + + + | Performing | Address | City/State/Zipcode | Phone Number | | Organization | | | | + + + + + | [facility] | [facility] | [place] [address] | | | GENETICS LABS | [address] | | | | | [...] Iron and TIBC, Serum Test performed by [facility] | | | [facility]. | | + + + + + + + + | Performing | Address | City/State/Zipcode | Phone Number | | Organization | | | | + + + + + | [facility] | [address] | [place] [address] | | | LABORATORY | | | [...] ([address] [facility]) | | | [facility] [place] [address] | | | [place] [address] | | + + + + + + + + | Performing | Address | City/State/Zipcode | Phone Number | | Organization | | | | + + + + + | [facility] | [address] | [place] [address] | | | LABORATORY | | | [...] + + | Test performed by [facility]. | | | | | + + + + + + + + | Performing | Address | City/State/Zipcode | Phone Number | | Organization | | | | + + + + + | [facility] | [address] | [place] [address] | | | LABORATORY | | | [...] by | | | | | | [facility] | | | | | | [facility]. | | | | + + + + + + + + | Specimen | + + | | + + + + + + + | Performing | Address | City/State/Zipcode | Phone Number | | Organization | | | | + + + + + | [facility] | [address] | [place] [address] | | | LABORATORY | | | [...] + | [facility] | [address] [facility] | [place] [address] | | | PATHOLOGY | [address] | | | + + + + + | [facility] | [facility] | [place] [address] | | | PATHOLOGY | [address] [...] | + + + | Sent to [facility]. | [facility] | | | DEPARTMENT OF | | | PATHOLOGY | + + + + + + + + | Performing | Address | City/State/Zipcode | Phone Number | | Organization | | | | + + + + + | [facility] DEPARTMENT | [address] [place] [address] | [place] [address] | | | PATHOLOGY | [address] | | | + + + + + | [facility] DEPARTMENT OF | [facility] | [place] [address] | | | PATHOLOGY | [address] | | | + + + + + documented in this encounter Visit Diagnoses + + | Diagnosis | + + | Chronic hepatitis C without mention of hepatic coma - Primary | + + documented in this encounter
--- OUTSIDE RECORDS SUMMARY | ~2019-02-14 | XMS | Encounter Summary ---
Demographics + + + | Address | GENERAL DELIVERY | | | [place] [address] | + + + | Home Phone [...] Providers + +------+ + | Care Manager Field Name | Role | Phone | + [...] | Pain | | 2014 | | [place] [address] [address] | [address] | | | | | [address] | [place], [place] | | | | | Mailcode: OC8D | [address] | | | | | [facility] | [phone] | | | | | and Healing, | | | | | | [address] | | | | | | [place], [place] | | | | | | [address] | | | | | | [phone] | | | +--------+ + + + [...]
--- OUTSIDE RECORDS SUMMARY | ~2019-02-14 | XMS | Encounter Summary ---
Demographics + + + | Address | [address] [place] | | | [place] [address] | + + + | Home Phone [...] Team Providers + +------+ + | Care Controller Mechanic Name | Role | Phone | [...] Abdominal pain | | 2007 | | [place] [id number] | [address] | | | | | [address] | [place], [place] | | | | | Mailcode: [id number] | [address] | | | | | [facility] | [phone] | | | | | and Healing, | | | | | | [address] | | | | | | [place], [place] | | | | | | [address] | | | | | | [phone] | | | +--------+ + + + [...]
--- OUTSIDE RECORDS SUMMARY | ~2019-02-14 | XMS | Encounter Summary ---
Demographics + + + | Address | [place] | | | [place] [address] | + + + | Home Phone [...] Team Providers + +------+ + | Care Wildlife Refuge Specialist Name | Role | Phone | [...] | 2014 | anned | [address] [facility] | | | | | | [address] | | | | | | [place], [place] | | | | | | [address] | | | +--------+ + + + [...]
--- OUTSIDE RECORDS SUMMARY | ~2019-02-14 | XMS | Encounter Summary ---
Demographics + + + | Address | [address] [place] | | | [place] [address] | + + + | Home Phone [...] Team Providers + +------+ + | Care Plastic Extruding Machine Operator Name | Role | Phone [...] | | | | Mailcode: [id number] | [place], [place] | | | | | [facility] | [address] | | | | | and [place], | [phone] | | | | | [facility] | | | | | | Floor [place], [place] | | | | | | [address] | | | | | | [phone] | | | +--------+ + + + [...]
--- OUTSIDE RECORDS SUMMARY | ~2019-02-14 | XMS | Encounter Summary ---
Demographics + + + | Address | [address] [place] | | | [place] [address] | + + + | Home Phone [...] Team Providers + +------+ + | Care Denture Laboratory Technician Name | Role | Phone | [...] | | | | at [facility] 3rd Floor | | Hepatic Coma | | | | [address] | | | | | | [place], | | | | | | [place] [address] | | | | | | [phone] | | | +--------+------+ + + + [...] + | [facility] | [address] [facility] [address] | [place] [address] | | | PATHOLOGY | [address] | | | + + + + + | [facility] | [address] [facility] | [place] [address] | | | PATHOLOGY | [address] [...] + | [facility] | [address] [facility] | [place] [address] | | | PATHOLOGY | [address] | | | + + + + + | [facility] | [address] [facility] | [place] [address] | | | PATHOLOGY | [address] [...] + | [facility] | [address] [facility] | [place] [address] | | | PATHOLOGY | [address] | | | + + + + + | [facility] | [address] [facility] | [place] [address] | | | PATHOLOGY | [address] [...] Performed At | + + + | [id number] Estimated GFR > 60 mL/min/1.73 sq m if non- | [facility] | | [place] [id number] Estimated GFR > 60 mL/min/1.73 sq m if | DEPARTMENT | | [place] GFR is estimated using the MDRD [...] | + + + + + | [facility] DEPARTMENT | [address] | [place] [address] | | | PATHOLOGY | [address] | | | + + + + + | [facility] | [address] | [place] [address] | | | PATHOLOGY | [address] | | | + + + + + documented in this encounter Visit Diagnoses + + | Diagnosis | + + | Chronic hepatitis C without mention of hepatic coma | + + documented in this encounter"
--- NOTE | 2019-02-14 16:54 | EKG ---
[facility] [address] [facility] [place] [address] Signed Normal sinus rhythm Left axis deviation Incomplete right bundle branch block T wave abnormality, consider anterior ischemia Prolonged QT Abnormal ECG When compared with ECG of 03-DEC-2016 14:03, T wave inversion now evident in Anterior leads Confirmed by ARNOL PIÑA MD ([id number]) on 02/14/2019 4:54:21 PM Electronically Signed By: ARNOL PIÑA MD 02/14/19 1654 PATIENT NAME: ROMEROAALIYAH LEMON Electrocardiogram DATE OF : 78 PHYSICIAN: ARNOL PIÑA MD REPORT #: [id number] REPORT IS CONFIDENTIAL AND NOT TO BE RELEASED WITHOUT AUTHORIZATION
== END 2019-02-14 16:19 | disposition home or self-care (01) ==
LOC: ED 13:24
DX: R07.9 Chest pain, unspecified (principal); F11.10 Opioid abuse, uncomplicated; I10 Essential (primary) hypertension; F17.200 Nicotine dependence, unspecified, uncomplicated; Z88.1 Allergy status to other antibiotic agents; Z88.2 Allergy status to sulfonamides; Z88.8 Allergy status to other drugs, medicaments and biological substances; Z91.048 Other nonmedicinal substance allergy status
CPT/HCPCS: 71045; 80053; 83735; 84484; 85025; 85379; 93005; 93010; 96361; 96374; 99285-25; J2405; J7030

== ENCOUNTER 2019-04-30 01:40 | Emergency (ER) | payer OTHER ==
[~2019-04-30] VITALS: Ht 177.8 cm; Wt 104.3 kg
--- OUTSIDE RECORDS SUMMARY | ~2019-04-30 | XMS | Encounter Summary ---
Demographics + + + | Address | [address] | | | [place] [address] | + + + | Home Phone | | + + + | Preferred Language | Unknown | + + + | Marital Status | Single | + + + | Orthodox Affiliation | NON | + + + | Race | White | + + + | Ethnic Group | Not or | + + + Author + + + | Author | [facility] | + + + | Organization | [facility] | + + + | Address | Unknown | + + + | Phone | Unavailable | + + + Support + + +---------+ + | Name | Relationship | Address | Phone | + + +---------+ + | Per None, PT | ECON | Unknown | Unavailable | + + +---------+ + Care Team Providers + +------+ + | Care Supervisor Malted Milk Name | Role | Phone | + +------+ + | Etienne Barnes PA-C | PCP | | + +------+ + Encounter Details +--------+ + + + + | Date | Type | Department | Care Team | Description | +--------+ + + + + | 09/14/ | Document-Sc | UNKNOWN DEPARTMENT | Unknown . | | | 2014 | anned | [address] [facility] | | | | | | [address] | | | | | | [place], [place] | | | | | | [address] | | | +--------+ + + + + Social History + + + +--------+------+ | Tobacco Use | Types | Packs/Day | Years | Date | | | | | Used | | + + + +--------+------+ | Former Smoker | Cigarettes | 1.5 | 5 | | + + + +--------+------+ + + | Comments: quit 1.5 yrs ago | + + + + +---------+ + | Alcohol Use | Drinks/Week | oz/Week | Comments | + + +---------+ + | No | | | | + + +---------+ + + + + | Sex Assigned at | Date Recorded | | | | + + + | Not on file | | + + + + + + + | Job Start Date | Occupation | Industry | + + + + | Not on file | Not on file | Not on file | + + + + + + + + | Travel History | Travel Start | Travel End | + + + + + + | No recent travel history available. | + + documented as of this encounter Plan of Treatment Not on filedocumented as of this encounter Procedures + +--------+ + + + | Procedure Name | Priori | Date/Time | Associated Diagnosis | Comments | | | ty | | | | + +--------+ + + + | RADIOLOGY | | 09/14/2014 | | Results for this | | | | 12:00 AM | | procedure are in the | | | | PDT | | results section. | + +--------+ + + + | RADIOLOGY | | 06/14/2014 | | Results for this | | | | 12:00 AM | | procedure are in the | | | | PST | | results section. | + +--------+ + + + documented in this encounter Results RADIOLOGY (09/14/2014 12:00 AM PDT) + + + | Narrative | Performed At | + + + | | | + + + RADIOLOGY (06/14/2014 12:00 AM PST) + + + | Narrative | Performed At | + + + | | | | | | + + + + + | Procedure Note | + + | [facility] - 09/14/2014 3:04 PM PDT | + + documented in this encounter Visit Diagnoses Not on filedocumented in this encounter"
--- OUTSIDE RECORDS SUMMARY | ~2019-04-30 | XMS | Encounter Summary ---
Demographics + + + | Address | [address] | | | [place] [address] | + + + | Home Phone | | + + + | Preferred Language | Unknown | + + + | Marital Status | Single | + + + | Worship Affiliation | NON | + + + | Race | White | + + + | Ethnic Group | Not or | + + + Author + + + | Author | [facility] | + + + | Organization | [facility] | + + + | Address | Unknown | + + + | Phone | Unavailable | + + + Support + + +---------+ + | Name | Relationship | Address | Phone | + + +---------+ + | Per None, PT | ECON | Unknown | Unavailable | + + +---------+ + Care Team Providers + +------+ + | Care Jewelry Cutter Name | Role | Phone | + +------+ + | Lakesha River | PCP | | + +------+ + Encounter Details +--------+ + + + + | Date | Type | Department | Care Team | Description | +--------+ + + + + | 08/11/ | Telephone | Digestive Health | Jeancarlos Marley MD | | | 2008 | | Center at [facility] [address] | [address] | | | | | [address] | [place], [place] | | | | | Mailcode: Center | [address] | | | | | for Health and | [phone] | | | | | [facility] [address] | | | | | | [place], [place] | | | | | | [address] | | | | | | [phone] | | | +--------+ + + + + Social History + + + +--------+------+ | Tobacco Use | Types | Packs/Day | Years | Date | | | | | Used | | + + + +--------+------+ | Current Every Day | Cigarettes | 1.5 | 1 | | | Smoker | | | | | + + + +--------+------+ + + +---------+ + | Alcohol Use [...] Not on filedocumented as of this encounter Results INR (08/21/2008 7:29 AM PDT) + + + + + + | Component | Value | Ref Range | Performed | Pathologist | | | | | At | Signature | + + + + + + | INR | 1.00Comment: | 0.90 - 1.20 INR | [facility] | | | | INR Therapeutic ranges | | DEPARTMENT | | | | for full | | OF | | | | anticoagulation: | | PATHOLOGY | | | | INR for Venous | | | | | | Thromboembolism | | | | | | (2.0-3.0) | | | | | | INR INR for most | | | | | | patients with mech. | | | | | | valves (2.5-3.5) | | | | | | INR | | | | + + + + + + + + | Specimen | + + | Blood - Blood | + + + + + + + | Performing | Address | City/State/Zipcode | Phone Number | | Organization | | | | + + + + + | [facility] | [address] | [place] [address] | | | PATHOLOGY | [address] | | | + + + + + | [facility] | [address] | [place] [address] | | | PATHOLOGY | [address] | | | + + + + + CBC, WITH DIFFERENTIAL (08/21/2008 7:29 AM PDT) + + + + + + | Component | Value | Ref Range | Performed | Pathologist | | | | | At | Signature | + + + + + + | WHITE CELL | 7.4 | 4.4 - 11.0 K/cu | [facility] | | | COUNT | | mm | DEPARTMENT | | | | | | OF | | | | | | PATHOLOGY | | + + + + + + | RED CELL | 5.59 | 4.50 - 5.90 | [facility] | | | COUNT | | M/cu mm | DEPARTMENT | | | | | | OF | | | | | | PATHOLOGY | | + + + + + + | HEMOGLOBIN | 17.0 | 13.5 - 17.5 | [facility] | | | | | g/dL | DEPARTMENT | | | | | | OF | | | | | | PATHOLOGY | | + + + + + + | HEMATOCRIT | 50.9 | 41.0 - 53.0 % | [facility] | | | | | | DEPARTMENT | | | | | | OF | | | | | | PATHOLOGY | | + + + + + + | MCV | 91.1 | 80.0 - 96.0 fL | [facility] | | | | | | DEPARTMENT | | | | | | OF | | | | | | PATHOLOGY | | + + + + + + | MCHC | 33.3 (L) | 33.4 - 35.5 | [facility] | | | | | g/dL | DEPARTMENT | | | | | | OF | | | | | | PATHOLOGY | | + + + + + + | RDW | 13.8 | 11.5 - 15.0 % | [facility] | | | | | | DEPARTMENT | | | | | | OF | | | | | | PATHOLOGY | | + + + + + + | PLATELET | 215 | 150 - 400 K/cu | [facility] | | | COUNT | | mm | DEPARTMENT | | | | | | OF | | | | | | PATHOLOGY | | + + + + + + + + | Specimen | + + | Blood - Blood | + + + + + + + | Performing | Address | City/State/Zipcode | Phone Number | | Organization | | | | + + + + + | [facility] | [address] | [place] [address] | | | PATHOLOGY | [address] | | | + + + + + | [facility] | [address] | [place] [address] | | | PATHOLOGY | [address] | | | + + + + + COMPLETE METABOLIC SET (NA,K,CL,CO2,BUN,CREAT,GLUC,CA,AST,ALT,BILI TOTAL,ALK PHOS,ALB,PROT TOTAL) (08/21/2008 7:29 AM PDT) + +---------+ + + + | Component | Value | Ref Range | Performed | Pathologist | | | | | At | Signature | + +---------+ + + + | GLUCOSE, | 102 (H) | 60 - 99 mg/dL | [facility] | | | PLASMA | | | DEPARTMENT | | | (LAB) | | | OF | | | | | | PATHOLOGY | | + +---------+ + + + | BUN, PLASMA | 8 | 6 - 20 mg/dL | [facility] | | | (LAB) | | | DEPARTMENT | | | | | | OF | | | | | | PATHOLOGY | | + +---------+ + + + | CREATININE | 0.80 | 0.70 - 1.30 | [facility] | | | PLASMA | | mg/dL | DEPARTMENT | | | (LAB) | | | OF | | | | | | PATHOLOGY | | + +---------+ + + + | TOTAL | 6.9 | 6.1 - 7.9 g/dL | [facility] | | | PROTEIN, | | | DEPARTMENT | | | PLASMA | | | OF | | | (LAB) | | | PATHOLOGY | | + +---------+ + + + | ALBUMIN, | 3.7 | 3.5 - 4.7 g/dL | [facility] | | | PLASMA | | | DEPARTMENT | | | (LAB) | | | OF | | | | | | PATHOLOGY | | + +---------+ + + + | CALCIUM, | 9.6 | 8.6 - 10.2 | [facility] | | | PLASMA | | mg/dL | DEPARTMENT | | | (LAB) | | | OF | | | | | | PATHOLOGY | | + +---------+ + + + | BILIRUBIN | 0.8 | 0.3 - 1.2 mg/dL | [facility] | | | TOTAL | | | DEPARTMENT | | | | | | OF | | | | | | PATHOLOGY | | + +---------+ + + + | ALK PHOS | 107 | 53 - 128 U/L | [facility] | | | | | | DEPARTMENT | | | | | | OF | | | | | | PATHOLOGY | | + +---------+ + + + | AST(SGOT) | 101 (H) | 15 - 41 U/L | [facility] | | | | | | DEPARTMENT | | | | | | OF | | | | | | PATHOLOGY | | + +---------+ + + + | SODIUM, | 138 | 134 - 143 | [facility] | | | PLASMA | | mmol/L | DEPARTMENT | | | (LAB) | | | OF | | | | | | PATHOLOGY | | + +---------+ + + + | POTASSIUM, | 3.9 | 3.4 - 5.0 | [facility] | | | PLASMA | | mmol/L | DEPARTMENT | | | (LAB) | | | OF | | | | | | PATHOLOGY | | + +---------+ + + + | CHLORIDE, | 104 | 97 - 108 mmol/L | [facility] | | | PLASMA | | | DEPARTMENT | | | (LAB) | | | OF | | | | | | PATHOLOGY | | + +---------+ + + + | TOTAL CO2, | 27 | 23 - 31 mmol/L | [facility] | | | PLASMA | | | DEPARTMENT | | | (LAB) | | | OF | | | | | | PATHOLOGY | | + +---------+ + + + | ALT (SGPT) | 232 (H) | 13 - 48 U/L | [facility] | | | | | | DEPARTMENT | | | | | | OF | | | | | | PATHOLOGY | | + +---------+ + + + + + | Specimen | + + | Blood - Blood | + + + + + | Narrative | Performed At | + + + | [id number] Estimated GFR > 60 mL/min/1.73 sq m if non- | [facility] | | [place] [id number] Estimated GFR > 60 mL/min/1.73 sq m if | DEPARTMENT OF | | [place] GFR is estimated using the MDRD equation recommended by | PATHOLOGY | | the National Kidney Disease Education Program. Estimated GFR | | | Interpretive Information: <60 mL/min/1.73 sq m Chronic Kidney | | | Disease <15 mL/mon/1.73 sq m Kidney Failure Estimated GFR | | | greater than 60mL/min/1.73 is of limited clinical Value. The MDRD | | | equation is not valid in the following situations: - Patients under | | | 18 years of age - Severe malnutrition or obesity - Vegetarian diet | | | - Rapidly changing kidney function | | + + + + + + + + | Performing | Address | City/State/Zipcode | Phone Number | | Organization | | | | + + + + + | [facility] DEPARTMENT | [address] | [place] [address] | | | PATHOLOGY | [address] | | | + + + + + | [facility] | [address] | [place] [address] | | | PATHOLOGY | [address] | | | + + + + + documented in this encounter Visit Diagnoses + + | Diagnosis | + + | Chronic hepatitis C without mention of hepatic coma - Primary | + + documented in this encounter"
--- OUTSIDE RECORDS SUMMARY | ~2019-04-30 | XMS | Encounter Summary ---
Demographics + + + | Address | [address] | | | [place] [address] | + + + | Home Phone | | + + + | Preferred Language | Unknown | + + + | Marital Status | Single | + + + | Caodaism Affiliation | NON | + + + | Race | White | + + + | Ethnic Group | Not or | + + + Author + + + | Author | [facility] | + + + | Organization | [facility] | + + + | Address | Unknown | + + + | Phone | Unavailable | + + + Support + + +---------+ + | Name | Relationship | Address | Phone | + + +---------+ + | Per None, PT | ECON | Unknown | Unavailable | + + +---------+ + Care Team Providers + +------+ + | Care Ostomy Care Nurse Name | Role | Phone | + +------+ + | Lakesha River | PCP | | + +------+ + Encounter Details +--------+------+ + + + | Date | Type | Department | Care Team | Description | +--------+------+ + + + | 02/27/ | Lab | Laboratory at [facility] | | Chronic Hepatitis C | | 2007 | | [address] | | without Mention of | | | | [place], [place] | | Hepatic Coma | | | | [address] | | | | | | [phone] | | | +--------+------+ + + + Social History + + [...] | + +--------+ + + + | [facility] - COMPLETE | Routin | 02/28/2008 | Chronic Hepatitis | Results for this | | METABOLIC SET | e | 9:24 AM | C without Mention of | procedure are in the | | | | PDT | Hepatic Coma | results section. | + +--------+ + + + | [facility] CBC W | Routin | 02/28/2008 | Chronic Hepatitis | Results for this | | DIFFERENTIAL | e | 9:24 AM | C without Mention of | procedure are in the | | | | PDT | Hepatic Coma | results section. | + +--------+ + + + | [facility] - INR | Routin | 02/28/2008 | Chronic Hepatitis | Results for this | | (PROTHROMBINTIME) | e | 9:24 AM | C without Mention of | procedure are in the | | | | PDT | Hepatic Coma | results section. | + +--------+ + + + documented in this encounter Results [facility] - INR (PROTHROMBINTIME) (02/28/2008 9:24 AM PDT) [...] | + + + + + | [facility] DEPARTMENT OF | [address] | [place] [address] | | | PATHOLOGY | [address] | | | + + + + + | [facility] DEPARTMENT OF | [address] | [place] [address] | | | PATHOLOGY | [address] [...] | + + + + + | [facility] DEPARTMENT | [address] [facility] [address] | [place] [address] | | | PATHOLOGY | [address] | | | + + + + + | [facility] | [address] [facility] | [place] [address] | | | PATHOLOGY | [address] | | | + + + + + [facility] - COMPLETE METABOLIC SET (02/28/2008 9:24 AM [...] | + + + + + | [facility] DEPARTMENT OF | [address] | [place] [address] | | | PATHOLOGY | [address] | | | + + + + + | [facility] DEPARTMENT OF | [address] | [place] [address] | | | PATHOLOGY | [address] | | | + + + + + documented in this encounter Visit Diagnoses + + | Diagnosis | + + | Chronic hepatitis C without mention of hepatic coma | + + documented in this encounter"
--- OUTSIDE RECORDS SUMMARY | ~2019-04-30 | XMS | Encounter Summary ---
Demographics + + + | Address | [address] | | | [place] [address] | + + + | Home Phone | | + + + | Preferred Language | Unknown | + + + | Marital Status | Single | + + + | Hinduism Affiliation | NON | + + + | Race | White | + + + | Ethnic Group | Not or | + + + Author + + + | Author | [facility] | + + + | Organization | [facility] | + + + | Address | Unknown | + + + | Phone | Unavailable | + + + Support + + +---------+ + | Name | Relationship | Address | Phone | + + +---------+ + | Per None, PT | ECON | Unknown | Unavailable | + + +---------+ + Care Team Providers + +------+ + | Care Brush Washer Name | Role | Phone | + +------+ + | Jae Robin MD | PCP | | + +------+ + Reason for Visit + + + | Reason | Comments | + + + | Cystoscopy | | + + + Consultation (Routine) +--------+--------+ + + + + | Status | Reason | Specialty | Diagnoses / | Referred By | Referred To | | | | | Procedures | Contact | Contact | +--------+--------+ + + + + | Closed | | Urology | Diagnoses | Lobito, | Sushant, | | | | | ACUTE | Jae Spicer MD | MD Wang | | | | | URINARY | [place] | [address] | | | | | RETENTION | STATE | Ave | | | | | | HOSPITAL | [place], [place] | | | | | | [address] | [address] | | | | | | [address] | Phone: | | | | | | [place], [place] | [phone] | | | | | | [address] | Fax: | | | | | | Phone: | [phone] | | | | | | [phone] | | | | | | | Fax: | | | | | | | [phone] | | +--------+--------+ + + + + Encounter Details +--------+ + + + + | Date | Type | Department | Care Team | Description | +--------+ + + + + | 03/28/ | Procedure | Urology Adult | Wang Canchola MD | Cystoscopy | | 2009 | | [address] | [address] | | | | | Mailcode: [id number] | [place], [place] | | | | | [facility] | [address] | | | | | and [place], | [phone] | | | | | | | | | | | Floor [place], [place] | | | | | | [address] | | | | | | [phone] | | | +--------+ + + + [...] + + + | Blood Pressure | 127/84 | 03/28/2010 10:07 AM | | | | | PST | | + + + + + | Pulse | 78 | 03/28/2010 10:07 AM | | | | | PST | | + + + + + | Temperature | - | - | | + + + + + | Respiratory Rate | - | - | | + + + + + | Oxygen Saturation | - | - | | + + + + + | Inhaled Oxygen | - | - | | | Concentration | | | | + + + + + | Weight | 143.6 kg (316 lb 9.6 | 03/28/2010 10:07 AM | | | | oz) | PST | | + + + + + | Height | - | - | | + + + + + | Body Mass Index | 46.75 | 06/16/2007 8:01 AM | | | | | PST | | + + + + + documented in this encounter Patient Instructions Patient Instructions Ghanshyam Bass Rn - 03/28/2010 11:17 AM PSTCIC every 4 hours or more frequently if needed using a 16 inch Bard, coude 16fr catheter. Next appt: 1 year What is CIC? CIC is a way of emptying the bladder with a small tube (catheter) at regular times during t day. Why CIC? CIC is used to help keep your bladder empty. This will promote a healthy urinary tract (ki dneys, ureters, bladder and urethra). Clean intermittent self-catheterization helps you to remain dry, uninfected, and in control of your urinary function. SUPPLIES: 1. Catheter type: 16 inch Bard, coude 16fr catheter 2. Lubricant (water soluble) i.e. KY jelly 3. Container 4. Cloth or paper towel. These supplies are available at most medical supply stores and some pharmacies. STEPS: 1. Gather supplies. 2. Wash your hands with soap and water or hand finance accounting internship. Clean the tip of the penis with water or baby wipes. DO NOT clean the tip of the penis with soap. 3. Lay out supplies on a clean cloth or paper towel so they are in easy reach. 4. Lubricate the tip and first few inches of the catheter. 5. Stand or sit on the toilet or a chair. 6. Grasp the penis, retracting the foreskin if necessary, and hold it up and out from the b oliver (see picture). 7. Insert the lubricated tip of the catheter gently but firmly. You will meet some resista nce about half way in. Take a deep breath and relax and it will pass. (If you are using a c atheter with a curved tip, the curve points toward your nose.) 8. Continue passing the catheter until urine begins to flow. Go 1 further and while hol ding the catheter in place, allow all the urine to drain from the bladder. 9. Remove the catheter slowly, allowing any other urine to drain. Pull down the foreskin i f uncircumcised. 10. If you have been asked to keep a Voiding Log, measure the urine in the container and write it down. 11. Wash your hands and the catheter with soap and water (See Cleaning). CLEANING OF CATHETER: 1. Wash the catheter inside and out with disinfectant soap and water after each use or a vinegar and water solution. 2. Use a syringe to wash, rinse, and dry the inside of the catheter (Optional). 3. Rinse well inside and outside with clean water. 4. Allow the catheter to air dry on a towel. Take the syringe apart to dry also. 5. Store the catheter after it dries. 6. The catheter should be replaced about every four weeks. If a catheter appears rough, st iff, discolored, damaged, or if you develop an infection, throw it away and use a new one. 7. Also wash and rinse the container after each use. HAVE YOUR URINE CHECKED OR CALL YOUR DOCTOR IF: Urine is cloudy and smelly Go to the emergency department or urgent care or contact PCP or call us at [phone] or after hours at [phone] for signs or symptoms of UTI. Urinary frequency, burning, urge ncy, fever, chills, cloudy or foul smelling urine, confusion, or other related concerns. Fever above 100.5 F Aching in the bladder area or in the back New or increased leakage between catheterizations New or increased discomfort between catheterizations Difficulty in passing the catheter or not able to pass the catheter. HINTS: * It is normal to see a little blood on the catheter from time to time. * Be sure to drink 6-8 glasses of clear fluid each day. * The most important times to cath are in the morning when you get up and at night before b ed. Follow your doctor s recommendations. * When away from home, be sure to take extra cathing supplies. You may wish to store them in a toiletry bag or elina pack. Baby wipes are handy when soap and water are not available . * When a catheter is used away from home, it is best to put the used catheter in a separate plastic bag and wash it at home later. Presoaking before washing helps to clean the cathet er better. documented in this encounter Progress Notes Kali Sanders, Ghanshyam Kelley - 03/28/2010 11:58 AM PSTUrology Patient Instructions In Clean Intermitt ent Catheterization Patient/Family Readiness to Learn form was completed. Patient/family was instructed to perform CIC 4 to 6 time per day to empty bladder using a 1 6 coude catheter. Instruction regarding cleaning and replacement of catheter were reviewed. Printed instruc tions were provided. Patient/family was advised to contact his medical care provider if any of the following occ ur: signs and symptoms of possible urinary tract infection develop, inability to pass cathet er and any other questions or concerns. Patient/Family Readiness to Learn: (patient is here with 2 guardians from [facility]) The following pertains to: patient. Accurately explains reasons for visit and accurately relates medical history: yes. Accurately describes the likely alteration in self-care routines/abilities resulting from t reatment: yes. Able to provide names and reasons for taking current medications and dosages: yes. Able to follow proposed treatment plan for diet, activity and/or medication without difficu lty: yes. Learning Needs: CIC Barriers: None identified. Referral To: No referral required. Preferred Learning Method: Verbal , written and visual/demonstration. Teaching: Care instructions reviewed for catheter use and care, written instructions given and explained for CIC and catheter care, education pamphlets given and explained for cathete r care and CIC and Mr. [place] demonstrated CIC procedure and technique correctly. Patient/Family Response to Teaching: Verbalizes understanding of information/instructions given: Yes. Demonstrates ability to perform required procedure: Yes. He has experience with CIC prior. The total RN time spent with Mr. [place] was 10 minutes. Julian Paz MD - 03/28/2010 11:18 AM PSTFormatting o f this note might be different from the original. Urology Clinic Follow-Up: Staff: Cesar Canchola M.D. Author: Julian Rodriguez M.D. 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 He has pulled out most of the in-dwelling catheters. [facility]. He has done CIC in the past. He was last seen ~2.5 weeks ago. At that time there was concern for a false passage due to traumatic CIC attempts and thus the linares was left in place. Ur ine culture negative at last visit. Subjective: He has done OK with this catheter. Still has the issues with spasms and urgency with the f oley. Current outpatient prescriptions Medication Sig busPIRone 5 mg Oral Tablet take 1 tablet (5 mg) by oral route 2 times per day chlorproMAZINE 100 mg Oral Tablet take 1 tablet (100 mg) by oral route once daily lisinopril 20 mg Oral Tablet take 1 tablet (20 mg) by oral route once daily oxybutynin (DITROPAN) 5 mg Oral Tablet Take 1 Tab by mouth two times daily. paroxetine 20 mg Oral Tablet take 1 tablet (20 mg) by oral route once daily Review of Systems: See RN notes Physical Exam: BP 127/84 | Pulse 78 | Wt 143.609 kg (316 lb 9.6 oz) Constitutional: General appearance: normal Abdominal: Obese, soft Genitourinary: Circumcised phallus without lesions. Lab Results Component Value Date NA 138 08/21/2008 K 3.9 08/21/2008 CL 104 08/21/2008 BICARB 27 08/21/2008 BUN 8 08/21/2008 CR 0.80 08/21/2008 GLU 102 08/21/2008 CA 9.6 08/21/2008 Procedure: Cystoscopy today showed no abnormality or false passage. See procedure note. Assessment: Flaccid bladder. Plan: He will likely need CIC for life. We will have our clinic ski patrol the proper technique. He should be able to do this on his own and we encouraged him to cath at least 4x/daily. W nga gave him a dose of Cipro post cystoscopy today. We will see him back in one year with a r enal ultrasound and labs to ensure no upper tract damage. This patient was seen and examined with Dr. Canchola who agrees with the assessment and plan. Julian Rodriguez MD Resident Physician - Division of Urology Pager #[phone] Wang Fitzgerald Md - 1 05/28/2009 10:48 AM Kerriambrocio [place] is a 29 y.o. male I saw and examined along with Dr. Radha Rodriguez . I reviewed the relevant past medical history, social history, and medications. I agree with the assessment and plan as outlined in the medical record and reviewed by me. I was present for the entire procedure Violeta Avery - 03/28/2010 10:07 AM PSTUA (POC) done per verbal order of Dr. Canchola for voiding disfuntions . Read back was performed. Cipro 500 mg one tablet by mouth has been dispensed to the patient after cystoscopyElectron ically signed by Violeta Hoyos at 03/28/2010 11:12 AM PSTdocumented in this encounter Plan of Treatment Not on filedocumented as of this encounter Procedures + +--------+ + + + | Procedure Name | Priori | Date/Time | Associated Diagnosis | Comments | | | ty | | | | + +--------+ + + + | UT CYSTOURETHROSCOPY | Routin | 03/28/2010 | Unspecified | | | | e | 10:00 AM | retention of urine | | | | | PST | Voiding dysfunction | | + +--------+ + + + | UA 10 DIP POC | Routin | 03/28/2010 | Unspecified | Results for this | | | e | | retention of urine | procedure are in the | | | | | Voiding dysfunction | results section. | + +--------+ + + + | UT CYSTOURETHROSCOPY | Routin | 03/28/2010 | Voiding | Results for this | | | e | | dysfunction | procedure are in the | | | | | | results section. | + +--------+ + + + documented in this encounter Results UT CYSTOURETHROSCOPY (03/28/2010) + + + | Narrative | Performed At | + + + | CYSTOSCOPY was performed to evaluate urinary retention. Prior to | | | the beginning of the procedure the team paused to verify the | | | patient's identity, as well as the procedure to be performed and the | | | site. All equipment required was ready and available. The patient | | | was positioned appropriately. The patient was verbally informed | | | of the cystoscopy procedure and a signed consent was obtained. | | | The patients genitalia was prepped with Hibiclens and 10 cc's of 2% | | | viscous lidocaine was injected into the urethra and a penis clamp was | | | applied. After 5 minutes the lubricated flexible Olympus cystoscope | | | was introduced gently through the urethra and into the bladder. The | | | penile and membranous urethra appears normal. The prostatic urethra | | | appears normal. The bladder wall appears normal with no tumors, | | | stones or suspicious areas noted. There is an area of | | | erythema/mucosal edema on the posterior wall at the site of the linares | | | balloon. Both ureteral orifices were identified. The scope was | | | retroflexed and the bladder neck area was carefully examined with no | | | other findings. There was no bleeding noted during this procedure. | | | The procedure was tolerated well. He was given one dose of Cipro | | | 500mg post procedure. Dr. Canchola was present for this procedure. | | + + + UA DIPSTICK ONLY W/O MICRO, POC (03/28/2010) + +--------+ + + + | Component | Value | Ref Range | Performed | Pathologist | | | | | At | Signature | + +--------+ + + + | COLOR (UA | yellow | | [facility], | | | DIP), POC | | | POINT OF | | | | | | CARE TESTS | | + +--------+ + + + | APPEARANCE | clear | | [facility], | | | (UA DIP), | | | POINT OF | | | POC | | | CARE TESTS | | + +--------+ + + + | LEUKOCYTES | trace | Negative | [facility], | | | (UA DIP), | | | POINT OF | | | POC | | | CARE TESTS | | + +--------+ + + + | NITRITES | neg | Negative | [facility], | | | (UA DIP), | | | POINT OF | | | POC | | | CARE TESTS | | + +--------+ + + + | UROBILINOGE | neg | 0.2 LINUS | [facility], | | | N (UA DIP), | | UNITS | POINT OF | | | POC | | | CARE TESTS | | + +--------+ + + + | PROTEIN (UA | neg | Negative to | [facility], | | | DIP), POC | | Trace mg/dL | POINT OF | | | | | | CARE TESTS | | + +--------+ + + + | PH (UA | 5.5 | 5 - 8 | [facility], | | | DIP), POC | | | POINT OF | | | | | | CARE TESTS | | + +--------+ + + + | BLOOD (UA | trace | Negative | [facility], | | | DIP), POC | | | POINT OF | | | | | | CARE TESTS | | + +--------+ + + + | SPECIFIC | 1.015 | 1.005 - 1.03 | [facility], | | | GRAVITY (UA | | | POINT OF | | | DIP), POC | | | CARE TESTS | | + +--------+ + + + | KETONES (UA | neg | Negative mg/dL | [facility], | | | DIP), POC | | | POINT OF | | | | | | CARE TESTS | | + +--------+ + + + | BILIRUBIN | neg | Negative | [facility], | | | (UA DIP), | | | POINT OF | | | POC | | | CARE TESTS | | + +--------+ + + + | GLUCOSE (UA | neg | Negative to | [facility], | | | DIP), POC | | Trace mg/dL | POINT OF | | | | | | CARE TESTS | | + +--------+ + + + + + | Specimen | + + | Urine | + + + + + + + | Performing | Address | City/State/Zipcode | Phone Number | | Organization | | | | + + + + + | [facility] | [address] | [place] [address] | | | OF CARE TESTS | | | | + + + + + documented in this encounter Visit Diagnoses + + | Diagnosis | + + | Retention of urine, unspecified | + + | Voiding dysfunction Unspecified disorder of urethra and urinary tract | + + documented in this encounter"
--- OUTSIDE RECORDS SUMMARY | ~2019-04-30 | XMS | Encounter Summary ---
Demographics + + + | Address | [address] | | | [place] [address] | + + + | Home Phone | | + + + | Preferred Language | Unknown | + + + | Marital Status | Single | + + + | Anglican Affiliation | NON | + + + | Race | White | + + + | Ethnic Group | Not or | + + + Author + + + | Author | [facility] | + + + | Organization | [facility] | + + + | Address | Unknown | + + + | Phone | Unavailable | + + + Support + + +---------+ + | Name | Relationship | Address | Phone | + + +---------+ + | Per None, PT | ECON | Unknown | Unavailable | + + +---------+ + Care Team Providers + +------+ + | Care Clinical Product Manager Name | Role | Phone | + +------+ + PCP | Unavailable | + +------+ + Reason for Visit +--------+ + | Reason | Comments | +--------+ + | Pain | | +--------+ + Encounter Details +--------+ + + + + | Date | Type | Department | Care Team | Description | +--------+ + + + + | 06/13/ | Telephone | [facility] | Jeancarlos Marley MD | Pain | | 2014 | | [place] [id number] | [address] | | | | | [address] | [place], [place] | | | | | Mailcode: [id number] | [address] | | | | | [facility] | [phone] | | | | | and Healing, | | | | | | [address] | | | | | | [place], [place] | | | | | | [address] | | | | | | [phone] | | | +--------+ + + + [...] filedocumented as of this encounter Visit Diagnoses + + | Diagnosis | + + | Chronic hepatitis C without mention of hepatic coma - Primary | + + documented in this encounter"
--- OUTSIDE RECORDS SUMMARY | ~2019-04-30 | XMS | Encounter Summary ---
Demographics + + + | Address | [address] | | | [place] [address] | + + + | Home Phone | | + + + | Preferred Language | Unknown | + + + | Marital Status | Single | + + + | Denominational Affiliation | NON | + + + | Race | White | + + + | Ethnic Group | Not or | + + + Author + + + | Author | [facility] | + + + | Organization | [facility] | + + + | Address | Unknown | + + + | Phone | Unavailable | + + + Support + + +---------+ + | Name | Relationship | Address | Phone | + + +---------+ + | Per None, PT | ECON | Unknown | Unavailable | + + +---------+ + Care Team Providers + +------+ + | Care Top Waddy Name | Role | Phone | + +------+ + | Jae Robin MD | PCP | | + +------+ + Reason for Visit + + + | Reason | Comments | + + + | Follow-up Plan | | + + + Encounter Details +--------+ + + + + | Date | Type | Department | Care Team | Description | +--------+ + + + + | 01/27/ | Telephone | Urology Adult | Armand Ordonez MD | Follow-up Plan | | 2010 | | [address] | [address] | | | | | Mailcode: [id number] | [place], [place] | | | | | [facility] | [address] | | | | | and Healing, | [phone] | | | | | Building | | | | | | Floor [place], [place] | | | | | | [address] | | | | | | [phone] | | | +--------+ + + + [...]
--- OUTSIDE RECORDS SUMMARY | ~2019-04-30 | XMS | Encounter Summary ---
Demographics + + + | Address | [address] | | | [place] [address] | + + + | Home Phone | | + + + | Preferred Language | Unknown | + + + | Marital Status | Single | + + + | Anabaptist Affiliation | NON | + + + | Race | White | + + + | Ethnic Group | Not or | + + + Author + + + | Author | [facility] | + + + | Organization | [facility] | + + + | Address | Unknown | + + + | Phone | Unavailable | + + + Support + + +---------+ + | Name | Relationship | Address | Phone | + + +---------+ + | Per None, PT | ECON | Unknown | Unavailable | + + +---------+ + Care Team Providers + +------+ + | Care Ob/Gyn Nurse Name | Role | Phone | + +------+ + | Jae Robin MD | PCP | | + +------+ + Reason for Referral PROC - Outpatient Surgery (Routine) +--------+--------+ + + + + | Status | Reason | Specialty | Diagnoses / | Referred By | Referred To | | | | | Procedures | Contact | Contact | +--------+--------+ + + + + | Closed | | Urology | Diagnoses | Lobito, | Mery | | | | | Urinary | Jae Spicer MD | MD [place] | | | | | retention | [place] | [address] | | | | | Urinary | STATE | Ave | | | | | Retention | HOSPITAL | [place], [place] | | | | | Procedures | [address] | [address] | | | | | REQUEST TO | [address] | Phone: | | | | | SURGERY | [place] | [phone] | | | | | ASSISTANT TO THE CEO | [address] | Fax: | | | | | [place] | Phone: | [phone] | | | | | INCISE/DRAIN | [phone] | | | | | | BLADDER | Fax: | | | | | | suprapubic | [phone] | | | | | | cystostomy | | | +--------+--------+ + + + + Reason for Visit + + + | Reason | Comments | + + + | Urinary retention | | + + + Consultation (Routine) +--------+--------+ + + + + | Status | Reason | Specialty | Diagnoses / | Referred By | Referred To | | | | | Procedures | Contact | Contact | +--------+--------+ + + + + | Closed | | Urology | | Non-[facility] | Sushant, | | | | | | Epic Dept | MD Wang | | | | | | | [address] | | | | | | | Ave | | | | | | | [place], [place] | | | | | | | [address] | | | | | | | Phone: | | | | | | | [phone] | | | | | | | Fax: | | | | | | | [phone] | +--------+--------+ + + + + Encounter Details +--------+ + + + + | Date | Type | Department | Care Team | Description | +--------+ + + + + | 01/22/ | Procedure | Urology Adult | Armand Ordonez MD | Urinary retention | | 2010 | | [address] | [address] | | | | | Mailcode: [id number] | [place], [place] | | | | | [facility] | [address] | | | | | and Healing, | [phone] | | | | | | | | | | | Floor [facility] [place] | | | | | | [address] | | | | | | [phone] | | | +--------+ + + + [...] + + + | Blood Pressure | 132/79 | 01/22/2011 3:45 PM | | | | | PDT | | + + + + + | Pulse | 90 | 01/22/2011 3:45 PM | | | | | PDT [...] + + + + | Weight | 143.8 kg (317 lb) | 01/22/2011 3:45 PM | | | | | PDT | | + + + + + | Height | - | - | | + + + + + | Body Mass Index | 46.81 | 06/16/2007 8:01 AM | | | | | PST | | + + + + + documented in this encounter Progress Notes Armand Ordonez MD - 01/22/2011 12:51 PM [id number], former patient of Dr. Canchola, is an inpat ient at [facility] for at least 3 more years. He developed urinary retention and bladder failure in 2005 following a 3 week methamphetami ne binge, at which point he slept for 3 days and did not urinate. He has had indwelling cath eters, which he pulled out often, but states he hasn't pulled one out in a long time. He has intermittently tried CIC, but will not perform it anymore because it is too painful. He exp eriences pain in the posterior urethra and bladder region, and is adamantly opposed to tryin g again. He currently has an indwelling catheter. He has tried multiple voiding trials since going into retention, and has been completely un able to urinate spontaneously. He wants a suprapubic cystotomy tube. CYSTOSCOPY: Indication: 1. Chronic Urinary Retention 2. Pain with and difficulty performing intermittent catheterization. The patient was verbally informed of the cystoscopy procedure and a signed consent was obta ined. At 1030 (time), prior to the beginning of the procedure, the team paused to verify the eveline ent s identity, the procedure to be performed (in accordance with the consent) and the cor rect site. The patient's penis was prepped and draped. 2% viscous lidocaine was administered transuret hrally. The flexible cystoscope was introduced into the meatus and advanced under direct vis ion into the bladder. The bladder was surveyed systematically such that the entire urotheliu m was visualized. There was a single orthotopic ureteral orifice bilaterally. There were no trabeculations, cellules, diverticulae, stones, foreign bodies, or tumors. Th ere was catheter-related edema and inflammation of the bladder base. Retroflexion revealed a normal bladder neck with no prostatic intrusion. On scope withdrawal, the posterior urethra was smooth and without irritation, and the prost atic urethra was 1.5 cm and visually unobstructive. The anterior urethra showed no stricture s or suspicious lesions. The patient tolerated the procedure well. Impression: Urinary retention, apparent bladder failure, suspect myogenic etiology Normal anatomic appearance of bladder and outlet, no anatomic reason for pain found. Best management is CIC. Patient is adamantly opposed. Risks of chronic catheters include further bladder degeneration, bladder malignancy, and re peated infections. Additional risk of SPT is bowel injury. RBAPC discussed, IC obtained. Will perform open suprapubic cystotomy in the [place]. documented in this encounter Plan of Treatment Not on filedocumented as of this encounter Procedures + +--------+ + + + | Procedure Name | Priori | Date/Time | Associated Diagnosis | Comments | | | ty | | | | + +--------+ + + + | MT CYSTOURETHROSCOPY | Routin | 01/22/2011 | Urinary retention | Results for this | | | e | | | procedure are in the | | | | | | results section. | + +--------+ + + + documented in this encounter Results MT CYSTOURETHROSCOPY (01/22/2011) + + + | Narrative | Performed At | + + + | CYSTOSCOPY: Indication: 1. Chronic Urinary Retention 2. Pain | | | with and difficulty performing intermittent catheterization. The | | | patient was verbally informed of the cystoscopy procedure and a | | | signed consent was obtained. At 1030 (time), prior to the | | | beginning of the procedure, the team paused to verify the patient | | | | | | s identity, the procedure to be performed (in accordance with the | | | consent) and the correct site. The patient's penis was prepped | | | and draped. 2% viscous lidocaine was administered transurethrally. | | | The flexible cystoscope was introduced into the meatus and advanced | | | under direct vision into the bladder. The bladder was surveyed | | | systematically such that the entire urothelium was visualized. | | | There was a single orthotopic ureteral orifice bilaterally. There | | | were no trabeculations, cellules, diverticulae, stones, foreign | | | bodies, or tumors. There was catheter-related edema and inflammation | | | of the bladder base. Retroflexion revealed a normal bladder neck with | | | no prostatic intrusion. On scope withdrawal, the posterior | | | urethra was smooth and without irritation, and the prostatic urethra | | | was 1.5 cm and visually unobstructive. The anterior urethra showed no | | | strictures or suspicious lesions. The patient tolerated the | | | procedure well. | | + + + documented in this encounter Visit Diagnoses + + | Diagnosis | + + | Urinary retention - Primary Retention of urine, unspecified | + + documented in this encounter"
--- OUTSIDE RECORDS SUMMARY | ~2019-04-30 | XMS | Encounter Summary ---
Demographics + + + | Address | [address] | | | [place] [address] | + + + | Home Phone | | + + + | Preferred Language | Unknown | + + + | Marital Status | Single | + + + | Shinto Affiliation | NON | + + + | Race | White | + + + | Ethnic Group | Not or | + + + Author + + + | Author | [facility] | + + + | Organization | [facility] | + + + | Address | Unknown | + + + | Phone | Unavailable | + + + Support + + +---------+ + | Name | Relationship | Address | Phone | + + +---------+ + | Per None, PT | ECON | Unknown | Unavailable | + + +---------+ + Care Team Providers + +------+ + | Care Field Technical Specialist Name | Role | Phone | + +------+ + | Lakesha River | PCP | | + +------+ + Encounter Details +--------+ + + + + | Date | Type | Department | Care Team | Description | +--------+ + + + + | 06/16/ | Orders Only | [facility] | Jeancarlos Marley MD | Chronic Hepatitis C | | 2007 | | [place] [address] [address] | [address] | without Mention of | | | | [address] | [place], [place] | Hepatic Coma | | | | Mailcode: [id number] | [address] | (Primary Dx) | | | | [facility] | [phone] | | | | | and Healing, | | | | | | [address] | | | | | | [place], [place] | | | | | | [address] | | | | | | [phone] | | | +--------+ + + + [...] as of this encounter Plan of Treatment + +------+--------+ + + | Name | Type | Priori | Associated Diagnoses | Order Schedule | | | | ty | | | + +------+--------+ + + | [facility]-SPEC COLLCT | Lab | Routin | Chronic Hepatitis | Ordered: 06/16/2007 | | VPUNCT | | e | C without Mention of | | | | | | Hepatic Coma | | + +------+--------+ + + documented as of this encounter Procedures + +--------+ + + + | Procedure Name | Priori | Date/Time | Associated Diagnosis | Comments | | | ty | | | | + +--------+ + + + | COMPLETE METABOLIC | Routin | 06/16/2007 | | Results for this | | SET | e | 9:56 AM | | procedure are in the | | (NA,K,CL,CO2,BUN,CRE | | PST | | results section. | | AT,GLUC,CA,AST,ALT,B | | | | | | EVER TOTAL,ALK | | | | | | PHOS,ALB,PROT TOTAL) | | | | | + +--------+ + + + | [facility] CBC W | Routin | 06/16/2007 | Chronic Hepatitis | Results for this | | DIFFERENTIAL | e | 8:55 AM | C without Mention of | procedure are in the | | | | PST | Hepatic Coma | results section. | + +--------+ + + + | [facility] - INR | Routin | 06/16/2007 | Chronic Hepatitis | Results for this | | (PROTHROMBINTIME) | e | 8:55 AM | C without Mention of | procedure are in the | | | | PST | Hepatic Coma | results section. | + +--------+ + + + | DIFFERENTIAL | Routin | 06/16/2007 | | Results for this | | | e | 8:55 AM | | procedure are in the | | | | PST | | results section. | + +--------+ + + + | HEPATITIS C | Routin | 06/16/2007 | Chronic Hepatitis | Results for this | | GENOTYPING, PLASMA | e | 8:55 AM | C without Mention of | procedure are in the | | | | PST | Hepatic Coma | results section. | + +--------+ + + + | CBC, WITH | Routin | 06/16/2007 | | Results for this | | DIFFERENTIAL | e | 8:55 AM | | procedure are in the | | | | PST | | results section. | + +--------+ + + + | ANTI SMOOTH MUSCLE | Routin | 06/16/2007 | Chronic Hepatitis | Results for this | | AB, SERUM | e | 8:55 AM | C without Mention of | procedure are in the | | | | PST | Hepatic Coma | results section. | + +--------+ + + + | ANTI NUCLEAR AB | Routin | 06/16/2007 | Chronic Hepatitis | Results for this | | SCREEN, SERUM | e | 8:55 AM | C without Mention of | procedure are in the | | | | PST | Hepatic Coma | results section. | + +--------+ + + + | FERRITIN | Routin | 06/16/2007 | Chronic Hepatitis | Results for this | | | e | 8:55 AM | C without Mention of | procedure are in the | | | | PST | Hepatic Coma | results section. | + +--------+ + + + | IRON AND TIBC, SERUM | Routin | 06/16/2007 | Chronic Hepatitis | Results for this | | | e | 8:55 AM | C without Mention of | procedure are in the | | | | PST | Hepatic Coma | results section. | + +--------+ + + + documented in this encounter Results COMP METABOLIC SET (06/16/2007 9:56 AM PST) + +---------+ + + + [...] + + + | BUN, PLASMA | 10 | 6 - 20 mg/dL | [facility] | | | (LAB) | | | DEPARTMENT | | | | | | OF | | | | | | PATHOLOGY | | + +---------+ + + + | CREATININE | 0.9 | 0.7 - 1.3 mg/dL | [facility] | | | PLASMA | | | DEPARTMENT | | | (LAB) | | | OF | | | | | | PATHOLOGY | | + +---------+ + + + | TOTAL | 6.7 | 6.1 - 7.9 g/dL | [facility] | | | PROTEIN, | | | DEPARTMENT | | | PLASMA | | | OF | | | (LAB) | | | PATHOLOGY | | + +---------+ + + + | ALBUMIN, | 3.6 | 3.5 - 4.7 g/dL | [facility] | | | PLASMA | | | DEPARTMENT | | | (LAB) | | | OF | | | | | | PATHOLOGY | | + +---------+ + + + | CALCIUM, | 9.5 | 8.5 - 10.5 | [facility] | | | PLASMA | | mg/dL | DEPARTMENT | | | (LAB) | | | OF | | | | | | PATHOLOGY | | + +---------+ + + + | BILIRUBIN | 0.9 | 0.3 - 1.2 mg/dL | [facility] | | | TOTAL | | | DEPARTMENT | | | | | | OF | | | | | | PATHOLOGY | | + +---------+ + + + | ALK PHOS | 87 | 53 - 128 U/L | [facility] | | | | | | DEPARTMENT | | | | | | OF | | | | | | PATHOLOGY | | + +---------+ + + + | AST(SGOT) | 47 (H) | 15 - 41 U/L | [facility] | | | | | | DEPARTMENT | | | | | | OF | | | | | | PATHOLOGY | | + +---------+ + + + | SODIUM, | 136 | 136 - 145 | [facility] | | | PLASMA | | mmol/L | DEPARTMENT | | | (LAB) | | | OF | | | | | | PATHOLOGY | | + +---------+ + + + | POTASSIUM, | 4.9 | 3.5 - 5.1 | [facility] | | | PLASMA | | mmol/L | DEPARTMENT | | | (LAB) | | | OF | | | | | | PATHOLOGY | | + +---------+ + + + | CHLORIDE, | 106 | 98 - 107 mmol/L | [facility] | | | PLASMA | | | DEPARTMENT | | | (LAB) | | | OF | | | | | | PATHOLOGY | | + +---------+ + + + | TOTAL CO2, | 23 | 23 - 29 mmol/L | [facility] | | | PLASMA | | | DEPARTMENT | | | (LAB) | | | OF | | | | | | PATHOLOGY | | + +---------+ + + + | ALT (SGPT) | 79 (H) | 13 - 48 U/L | [facility] | | | | | | DEPARTMENT | | | | | | OF | | | | | | PATHOLOGY | | + +---------+ + + + | AST CMNT | SL HEMO | | [facility] | | | | | | DEPARTMENT | | | | | | OF | | | | | | PATHOLOGY | | + +---------+ + + + + + | Specimen | + + | | + + + + + | Narrative | Performed At | + + + | [id number] Estimated GFR > 60 mL/min/1.73 sq m if non- | [facility] | | [id number] Estimated GFR > 60 mL/min/1.73 sq m if GFR | DEPARTMENT OF | | is estimated using the MDRD equation recommended by the National | PATHOLOGY | | Kidney Disease Education Program. Estimated GFR Interpretive | | | Information: <60 mL/min/1.73 sq m Chronic Kidney Disease <15 | | | mL/mon/1.73 sq m Kidney Failure Estimated GFR greater than | | | 60mL/min/1.73 is of limited clinical Value. The MDRD equation is | | | not valid in the following situations: - Patients under 18 years of | | | age - Severe malnutrition or obesity - Vegetarian diet - Rapidly | | | changing kidney function Sample hemolyzed. Results for K, Total | | | Bili., Direct Bili., AST, LD, or HDL may be inaccurate. Refer to | | | comment under test result. | | + + + + + + + + | Performing | Address | City/State/Zipcode | Phone Number | | Organization | | | | + + + + + | [facility] DEPARTMENT | [address] | [place] [address] | | | PATHOLOGY | [address] | | | + + + + + | [facility] | [address] | [place] [address] | | | PATHOLOGY | [address] | | | + + + + + CBC, WITH DIFFERENTIAL (06/16/2007 8:55 AM PST) + +-------+ + + + | Component | Value | Ref Range | Performed | Pathologist | | | | | At | Signature | + +-------+ + + + | WHITE CELL | 8.4 | 4.4 - 11.0 K/cu | [facility] | | | COUNT | | mm | DEPARTMENT | | | | | | OF | | | | | | PATHOLOGY | | + +-------+ + + + | RED CELL | 5.62 | 4.50 - 5.90 | [facility] | | | COUNT | | M/cu mm | DEPARTMENT | | | | | | OF | | | | | | PATHOLOGY | | + +-------+ + + + | HEMOGLOBIN | 16.3 | 13.5 - 17.5 | [facility] | | | | | g/dL | DEPARTMENT | | | | | | OF | | | | | | PATHOLOGY | | + +-------+ + + + | HEMATOCRIT | 47.1 | 41.0 - 53.0 % | [facility] | | | | | | DEPARTMENT | | | | | | OF | | | | | | PATHOLOGY | | + +-------+ + + + | MCV | 83.8 | 80.0 - 96.0 fL | [facility] | | | | | | DEPARTMENT | | | | | | OF | | | | | | PATHOLOGY | | + +-------+ + + + | MCHC | 34.5 | 33.4 - 35.5 | [facility] | | | | | g/dL | DEPARTMENT | | | | | | OF | | | | | | PATHOLOGY | | + +-------+ + + + | RDW | 13.7 | 11.5 - 15.0 % | [facility] | | | | | | DEPARTMENT | | | | | | OF | | | | | | PATHOLOGY | | + +-------+ + + + | PLATELET | 211 | 150 - 400 K/cu | [facility] [...] | + + + + + | [facility] DEPARTMENT OF | [address] | [place] [address] | | | PATHOLOGY | [address] | | | + + + + + | [facility] | [facility] [address] | [place] [address] | | | PATHOLOGY | [address] | | | + + + + + DIFFERENTIAL (06/16/2007 8:55 AM PST) + +---------+ + + + | Component | Value | Ref Range | Performed | Pathologist | | | | | At | Signature | + +---------+ + + + | NEUTROPHIL | 66 | 50 - 70 % | [facility] | | | % | | | DEPARTMENT | | | | | | OF | | | | | | PATHOLOGY | | + +---------+ + + + | LYMPHOCYTE | 22 | 18 - 42 % | [facility] | | | % | | | DEPARTMENT | | | | | | OF | | | | | | PATHOLOGY | | + +---------+ + + + | MONOCYTE % | 8 | 2 - 8 % | [facility] | | | | | | DEPARTMENT | | | | | | OF | | | | | | PATHOLOGY | | + +---------+ + + + | EOS % | 2 | 1 - 3 % | [facility] | | | | | | DEPARTMENT | | | | | | OF | | | | | | PATHOLOGY | | + +---------+ + + + | BASO % | 2 | <3 % | [facility] | | | | | | DEPARTMENT | | | | | | OF | | | | | | PATHOLOGY | | + +---------+ + + + | NEUTROPHIL | 5.5 | 1.8 - 7.7 K/cu | [facility] | | | # | | mm | DEPARTMENT | | | | | | OF | | | | | | PATHOLOGY | | + +---------+ + + + | LYMPHOCYTE | 1.9 | 1.0 - 4.8 K/cu | [facility] | | | # | | mm | DEPARTMENT | | | | | | OF | | | | | | PATHOLOGY | | + +---------+ + + + | MONOCYTE # | 0.7 | <0.9 K/cu mm | [facility] | | | | | | DEPARTMENT | | | | | | OF | | | | | | PATHOLOGY | | + +---------+ + + + | EOS # | 0.2 | <0.6 K/cu mm | [facility] | | | | | | DEPARTMENT | | | | | | OF | | | | | | PATHOLOGY | | + +---------+ + + + | BASO # | 0.2 (H) | <0.2 | [facility] | | | [...] | + + + + + | [facility] DEPARTMENT OF | [address] | [place] [address] | | | PATHOLOGY | [address] | | | + + + + + | [facility] DEPARTMENT OF | [address] | [place] [address] | | | PATHOLOGY | [address] [...] | + + + | Sent to Core Lab. | [facility] | | | DEPARTMENT OF | | | PATHOLOGY | + + + + + + + + | Performing | Address | City/State/Zipcode | Phone Number | | Organization | | | | + + + + + | [facility] | [address] | [place] [address] | | | PATHOLOGY | [address] | | | + + + + + | [facility] | [address] | [place] [address] | | | PATHOLOGY | [address] [...] + + + + | [facility] | [address] | [place] [address] | | | PATHOLOGY | [address] | | | + + + + + | [facility] | [address] | [place] [address] | | | PATHOLOGY | [address] [...] by | | | | | | [facility] | | | | | | [employer]. | | | | + + + + + + + + | Specimen | + + | | + + + + + + + | Performing | Address | City/State/Zipcode | Phone Number | | Organization | | | | + + + + + | [facility] | [address] | [place] [address] | | | LABORATORY | | | [...] + + + | Test performed by [facility]. | | + + + + + + + + | Performing | Address | City/State/Zipcode | Phone Number | | Organization | | | | + + + + + | [facility] | [address] | [place] [address] | | | LABORATORY | | | [...] effective 03/08/07 | | | [facility] ([facility]) [facility] | | | [address] [place], [place] | | | [address] | | + + + + + + + + | Performing | Address | City/State/Zipcode | Phone Number | | Organization | | | | + + + + + | [facility] | [address] | [place] [address] | | | LABORATORY | | | [...] Iron and TIBC, Serum Test performed by [facility] | | | [facility]. | | + + + + + + + + | Performing | Address | City/State/Zipcode | Phone Number | | Organization | | | | + + + + + | [facility] | [address] | [place] [address] | | | LABORATORY | | | | + + + + + HEP C GENOTYPING (06/16/2007 8:55 [...] | | | | | Ian Rodriguez, Ling, | | | | | | Annette [...] | | | | | determined bythe [facility] | | | | | | DNA [...] | | | | | Improvement Act [id number]. | | | | | | The [facility] | | | | | | Laboratory is a fully | | | | | | licensed and/ | | | | | | oraccredited clinical | | | | | | laboratory under CLIA, | | | | | | [place], and the State of | | | | | | [place]. | | | | + + + + + + + + | Specimen | + + | | + + + + + + + | Performing | Address | City/State/Zipcode | Phone Number | | Organization | | | | + + + + + | [facility] | [email or web address] | [place] [address] | | | GENETICS LABS | [address] | | | | | [place]. | | | + + + + + documented in this encounter Visit Diagnoses + + | Diagnosis | + + | Chronic hepatitis C without mention of hepatic coma - Primary | + + documented in this encounter
--- OUTSIDE RECORDS SUMMARY | ~2019-04-30 | XMS | Encounter Summary ---
Demographics + + + | Address | GENERAL DELIVERY | | | [place] [address] | + + + | Home Phone | | + + + | Preferred Language | Unknown | + + + | Marital Status | Single | + + + | Catholic Affiliation | NON | + + + | Race | White | + + + | Ethnic Group | Not or | + + + Author + + + | Author | [facility] | + + + | Organization | [facility] | + + + | Address | Unknown | + + + | Phone | Unavailable | + + + Support + + +---------+ + | Name | Relationship | Address | Phone | + + +---------+ + | Per None, PT | ECON | Unknown | Unavailable | + + +---------+ + Care Team Providers + +------+ + | Care Wooden Furniture Polisher Name | Role | Phone | + [...] Required | | hepatitis C | [address] | [address] [facility] | | | | | without | [address] | Ave | | | | | mention of | [place], | [place], [place] | | | | | hepatic coma | [place] [address] | [address] | | | | | Procedures | Phone: | Phone: | | | | | CONSULT TO | [phone] | [phone] | | | | | HEPATOLOGY | Fax: | Fax: | | | | | | [phone] | [phone] | +--------+ + + + + + Encounter Details +--------+---------+ + + + | Date | Type | Department | Care Team | Description | +--------+---------+ + + + | 06/16/ | Office | Digestive Health | Jeancarlos Marley MD | Chronic Hepatitis C | | 2007 | Visit | Center at [facility] [address] | [address] | without Mention of | | | | [address] | [place], [place] | Hepatic Coma | | | | Mailcode: OC8D | [address] | (Primary Dx) | | | | [facility] | [phone] | | | | | and Healing, | | | | | | [address] | | | | | | [place], [place] | | | | | | [address] | | | | | | [phone] | | | +--------+---------+ + + + [...] the resident's findings and plan as written. ily-Izabel Sykes - 06/16/2007 8:32 AM PSTFor matting [...] + + | Performing | Address | City/State/[facility] | Phone Number | | Organization | | | | + +---------+ + + | [facility] DEPARTMENT OF | | | | | [...] | | | | | determined bythe [facility] | | | | | [...] | | | | | Improvement Act [id number]. | | | | | | [facility] | | | | | | Laboratory is a fully | | | | | | licensed and/ | | | | | | oraccredited clinical | | | | | | laboratory under CLIA, | | | | | | [place], and the State of | | | | | | [place]. | | | | + + + + + + + + | Specimen | + + | | + + + + + + + | Performing | Address | City/State/Zipcode | Phone Number | | Organization | | | | + + + + + | [facility] | [facility] | [place] [address] | | | GENETICS LABS | [address] | | | | | [address]VE[address] [...] Iron and TIBC, Serum Test performed by [facility] | | | [facility]. | | + + + + + + + + | Performing | Address | City/State/Zipcode | Phone Number | | Organization | | | | + + + + + | [facility] | [address] | [place] [address] | | | LABORATORY | | | [...] | | | [facility] ([facility] | | | [address], [place] | | | [address] | | + + + + + + + + | Performing | Address | City/State/Zipcode | Phone Number | | Organization | | | | + + + + + | [facility] | [address] | [place] [address] | | | LABORATORY | | | [...] + + + | Test performed by [facility]. | | + + + + + + + + | Performing | Address | City/State/Zipcode | Phone Number | | Organization | | | | + + + + + | [facility] | [address] | [place] [address] | | | LABORATORY | | | [...] by | | | | | | [facility] | | | | | | [facility]. | | | | + + + + + + + + | Specimen | + + | | + + + + + + + | Performing | Address | City/State/Zipcode | Phone Number | | Organization | | | | + + + + + | [facility] | [address] | [place] [address] | | | LABORATORY | | | [...] + | [facility] DEPARTMENT OF | [address] [facility] | [place] [address] | | | PATHOLOGY | [address] | | | + + + + + | [facility] DEPARTMENT OF | [address] [facility] | [place] [address] | | | PATHOLOGY | [address] [...] | + + + + + | [facility] DEPARTMENT OF | [facility] | [place] [address] | | | PATHOLOGY | [address] | | | + + + + + | [facility] DEPARTMENT OF | [address] | [place] [address] | | | PATHOLOGY | [address] | | | + + + + + documented in this encounter Visit Diagnoses + + | Diagnosis | + + | Chronic hepatitis C without mention of hepatic coma - Primary | + + documented in this encounter
--- OUTSIDE RECORDS SUMMARY | ~2019-04-30 | XMS | Encounter Summary ---
Demographics + + + | Address | GENERAL DELIVERY | | | [place] [address] | + + + | Home Phone [...] + + | Author | [facility] | + + + | Organization | [facility] | + + + | Address | Unknown | + + + | Phone | Unavailable | + + + Support + + +---------+ + | Name | Relationship | Address | Phone | + + +---------+ + | Per None, PT | ECON | Unknown | Unavailable | + + +---------+ + Care Team Providers + +------+ + | Care Application Integrator Name | Role | Phone | + [...] | | | | | | | [address] | | | | | | | Ave | | | | | | | [place], [place] | | | | | | | [address] | | | | | | | Phone: | | | | | | | [phone] | | | | | | | Fax: | | | | | | | [phone] | +--------+--------+ + + + + Encounter Details +--------+ + + + + | Date | Type | Department | Care Team | Description | +--------+ + + + + | 03/17/ | Procedure | Urology Adult | Armand Ordonez MD | Follow-up visit | | 2010 | | [address] | [address] | | | | | Mailcode: CH10U | [place], [place] | | | | | [facility] | [address] | | | | | and Healing, | [phone] | | | | | | | | | | | Floor [facility] [place] | | | | | | [address] | | | | | | [phone] | | | +--------+ + + + [...] + + + | Blood Pressure | 114/66 | 03/17/2011 11:47 AM | | | | | PDT | | + + + + + | Pulse | 73 | 03/17/2011 11:47 AM | | | | | PDT [...] + + + + | Weight | 141.7 kg (312 lb 6.4 | 03/17/2011 11:47 AM | | | | oz) | PDT | | + + + + + | Height | - | - | | + + + + + | Body Mass Index | 46.13 | 02/14/2011 7:00 AM | | | | | PDT | | + + + + + documented in this encounter Progress Notes Armand Ordonez MD - 03/17/2011 1:01 PM PDT1 month s/p open cystostomy tube placement. BP 114/66 | Pulse 73 | Wt 141.704 kg (312 lb 6.4 oz) Wound looks much better; still granulating in Security suture removed. Catheter changed Irrigates well. Impression: 1 month s/p SPT placement Change catheter Q month Facility will likely change care to [facility] due to distance. documented in this encounter Plan of Treatment Not on filedocumented as of this encounter Visit Diagnoses + + | Diagnosis | + + | Urinary retention - Primary Retention of urine, unspecified | + + documented in this encounter"
--- OUTSIDE RECORDS SUMMARY | ~2019-04-30 | XMS | Encounter Summary ---
Demographics + + + | Address | GENER[address] DELIVERY | | | [place] [address] | + + + | Home Phone [...] Team Providers + +------+ + | Care Engine Cowling Installer Name | Role | Phone | + +------+ + | Lakesha River | PCP | | + +------+ + Encounter Details +--------+------+ + + + | Date | Type | Department | Care Team | Description | +--------+------+ + + + | 08/21/ | Lab | Laboratory, | | Chronic Hepatitis C | | 2008 | | Specimen Collection | | without Mention of | | | | at [facility] 3rd Floor | | Hepatic Coma | | | | [address] | | | | | | [address] [place], [place] | | | | | | [address] | | | | | | [phone] | | | +--------+------+ + + + [...] + + | DIFFERENTIAL | Routin | 08/21/2008 | | Results for this | | | e | 7:29 AM | | procedure are in the | | | | PDT | | results section. | + +--------+ + + + | INR | Routin | 08/21/2008 | Chronic Hepatitis | Results for this | | | e | 7:29 AM | C without Mention of | procedure are in the | | | | PDT | Hepatic Coma | results section. | + +--------+ + + + | CBC, WITH | Routin | 08/21/2008 | Chronic Hepatitis | Results for this | | DIFFERENTIAL | e | 7:29 AM | C without Mention of | procedure are in the | | | | PDT | Hepatic Coma | results section. | + +--------+ + + + | COMPLETE METABOLIC | Routin | 08/21/2008 | Chronic Hepatitis | Results for this | | SET | e | 7:29 AM | C without Mention of | procedure are in the | | (NA,K,CL,CO2,BUN,CRE | | PDT | Hepatic Coma | results section. | | AT,GLUC,CA,AST,ALT,B | | | | | | EVER TOTAL,ALK | | | | | | PHOS,ALB,PROT TOTAL) | | | | | + +--------+ + + + documented in this encounter Results DIFFERENTIAL (08/21/2008 7:29 AM PDT) + +-------+ + + + | Component | Value | Ref Range | Performed | Pathologist | | | | | At | Signature | + +-------+ + + + | NEUTROPHIL | 56 | 50 - 70 % | [facility] | | | % | | | DEPARTMENT | | | | | | OF | | | | | | PATHOLOGY | | + +-------+ + + + | LYMPHOCYTE | 33 | 18 - 42 % | [facility] [...] + + + | EOS % | 3 | 1 - 3 % | [facility] [...] + + | NEUTROPHIL | 4.1 | 1.8 - 7.7 K/cu | [facility] | | | # | | mm | DEPARTMENT | | | | | | OF | | | | | | PATHOLOGY | | + +-------+ + + + | LYMPHOCYTE | 2.4 | 1.0 - 4.8 K/cu | [facility] [...] | + + + + + | [facility] | [address] [facility] [address] | [place] [address] | | | PATHOLOGY | [address] | | | + + + + + | [facility] | [address] [facility] | [place] [address] | | | PATHOLOGY | [address] | | | + + + + + INR (08/21/2008 7:29 AM PDT) + + [...] | + + + + + | [facility] | [address] [facility] | [place] [address] | | | PATHOLOGY | [address] | | | + + + + + | [facility] DEPARTMENT OF | [address] [facility] | [place] [address] | | | PATHOLOGY | [address] [...] | + + + + + | [facility] | [address] [facility] | [place] [address] | | | PATHOLOGY | [address] | | | + + + + + | [facility] | [address] [facility] | [place] [address] | | | PATHOLOGY | [address] [...] Performed At | + + + | [id number] Estimated GFR > 60 mL/min/1.73 sq m if non- | [facility] | | [place] [id number] Estimated GFR > 60 mL/min/1.73 sq m if | DEPARTMENT OF | | [place] GFR is estimated using the MDRD equation [...] | + + + + + | [facility] DEPARTMENT | [address] | [place] [address] | | | PATHOLOGY | [address] | | | + + + + + | [facility] | [address] | [place] [address] | | | PATHOLOGY | [address] | | | + + + + + documented in this encounter Visit Diagnoses + + | Diagnosis | + + | Chronic hepatitis C without mention of hepatic coma | + + documented in this encounter"
--- OUTSIDE RECORDS SUMMARY | ~2019-04-30 | XMS | Encounter Summary ---
Demographics + + + | Address | [address] DELIVERY | | | [place] [address] | + + + | Home Phone [...] Author + + + | Author | [facility] | + + + | Organization | [facility] | + + + | Address | Unknown | + + + | Phone | Unavailable | + + + Support + + +---------+ + | Name | Relationship | Address | Phone | + + +---------+ + | Per None, PT | ECON | Unknown | Unavailable | + + +---------+ + Care Team Providers + +------+ + | Care Yeast Cake Cutter Name | Role | Phone | [...] | | | URINARY | [place] | [address] | | | | | RETENTION | STATE | Ave | | | | | | HOSPITAL | [place], [place] | | | | | | [address] | [address] | | | | | | [address] | Phone: | | | | | | [place], [place] | [phone] | | | | | | [address] | Fax: | | | | | | Phone: | [phone] | | | | | | [phone] | | | | | | | Fax: | | | | | | | [phone] | | +--------+--------+ + + + + [...] | | | | Mailcode: CH10U | [place], [place] | | | | | [facility] | [address] | | | | | and [address], | [phone] | | | | | | | | | | | Floor [place], [place] | | | | | | [address] | | | | | | [phone] | | | +--------+ + + + [...] hands with soap and water or hand estimation manager. Clean the tip of the penis with [...] or contact PCP or call us at [phone] or after hours at [phone] for signs or symptoms of UTI. Urinary [...] for life. We will have our clinic sales representative jewelry the proper technique. He should be able [...] Resident Physician - Division of Urology Pager #[phone] Wang Fitzgerald Md - 1 05/28/2009 10:48 [...] | + +--------+ + + + | NV CYSTOURETHROSCOPY | Routin | 03/28/2010 | Unspecified [...] | + +--------+ + + + | NV CYSTOURETHROSCOPY | Routin | 03/28/2010 | Voiding | Results for this | | | e | | dysfunction | procedure are in the | | | | | | results section. | + +--------+ + + + documented in this encounter Results NV CYSTOURETHROSCOPY (03/28/2010) + + + | Narrative [...] + + + + | [facility] | [address] [facility] [address] | [place] [address] | | | OF CARE TESTS | | | | + + + + + documented in this encounter Visit Diagnoses + + | Diagnosis | + + | Retention of urine, unspecified | + + | Voiding dysfunction Unspecified disorder of urethra and urinary tract | + + documented in this encounter"
--- OUTSIDE RECORDS SUMMARY | ~2019-04-30 | XMS | Encounter Summary ---
Demographics + + + | Address | [address] | | | [place] [address] | + + + | Home Phone | | + + + | Preferred Language | Unknown | + + + | Marital Status | Single | + + + | Zoroastrian Affiliation | NON | + + + [...] Team Providers + +------+ + | Care Welder Fitter Apprentice Name | Role | Phone | + [...] Hepatitis C | | 2007 | | [place] [address] [address] | [address] | without Mention of | | | | [address] | [place], [place] | Hepatic Coma | | | | Mailcode: OC8D | [address] | (Primary Dx) | | | | [facility] | [phone] | | | | | and Healing, | | | | | | [address] | | | | | | [place], [place] | | | | | | [address] | | | | | | [phone] | | | +--------+ + + + [...] Performed At | + + + | [id number] Estimated GFR > 60 mL/min/1.73 sq m if non- | [facility] | | [id number] Estimated GFR > 60 mL/min/1.73 sq m [...] + + + | [facility] DEPARTMENT | [address] [facility] | [place] [address] | | | PATHOLOGY | [address] | | | + + + + + | [facility] | [address] | [place] [address] | | | PATHOLOGY | [address] [...] + | [facility] DEPARTMENT OF | [address] | [place] [address] | | | PATHOLOGY | [address] | | | + + + + + | [facility] | [facility] [address] | [place] [address] | | | PATHOLOGY | [address] [...] | + + + + + | [facility] DEPARTMENT OF | [address] | [place] [address] | | | PATHOLOGY | [address] | | | + + + + + | [facility] DEPARTMENT OF | [address] | [place] [address] | | | PATHOLOGY | [address] [...] | + + + + + | [facility] | [address] | [place] [address] | | | PATHOLOGY | [address] | | | + + + + + | [facility] | [address] | [place] [address] | | | PATHOLOGY | [address] [...] | + + + + + | [facility] | [address] | [place] [address] | | | PATHOLOGY | [address] | | | + + + + + | [facility] | [address] | [place] [address] | | | PATHOLOGY | [address] [...] by | | | | | | [facility] | | | | | | [employer]. | | | | + + + + + + + + | Specimen | + + | | + + + + + + + | Performing | Address | City/State/Zipcode | Phone Number | | Organization | | | | + + + + + | [facility] | [address] | [place] [address] | | | LABORATORY | | | [...] + + | Test performed by [facility]. | | + + + + + + + + | Performing | Address | City/State/Zipcode | Phone Number | | Organization | | | | + + + + + | [facility] | [address] | [place] [address] | | | LABORATORY | | | [...] effective 03/08/07 | | | [facility] ([facility] | | | [address] [place], [place] | | | [address] | | + + + + + + + + | Performing | Address | City/State/Zipcode | Phone Number | | Organization | | | | + + + + + | [facility] | [address] | [place] [address] | | | LABORATORY | | | [...] Iron and TIBC, Serum Test performed by [facility] | | | [facility]. | | + + + + + + + + | Performing | Address | City/State/Zipcode | Phone Number | | Organization | | | | + + + + + | [facility] | [address] | [place] [address] | | | LABORATORY | | | [...] | | | | | Improvement Act [id number]. | | | | | | [facility] | | | | | | Laboratory is a fully | | | | | | licensed and/ | | | | | | oraccredited clinical | | | | | | laboratory under CLIA, | | | | | | [place], and the State of | | | | | | [place]. | | | | + + + + + + + + | Specimen | + + | | + + + + + + + | Performing | Address | City/State/Zipcode | Phone Number | | Organization | | | | + + + + + | [facility] | [employer] | [place] [address] | | | GENETICS LABS | [address] | | | | | [place]. | | | + + + + + documented in this encounter Visit Diagnoses + + | Diagnosis | + + | Chronic hepatitis C without mention of hepatic coma - Primary | + + documented in this encounter
--- OUTSIDE RECORDS SUMMARY | ~2019-04-30 | XMS | Encounter Summary ---
Demographics + + + | Address | [address]IVERY | | | [place] [address] | + + + | Home Phone | | + + + | Preferred Language | Unknown | + + + | Marital Status | Single | + + + | Quaker Affiliation | NON | + + + | Race | White | + + + | Ethnic Group | Not or | + + + Author + + + | Author | [facility] | + + + | Organization | [facility] | + + + | Address | Unknown | + + + | Phone | Unavailable | + + + Support + + +---------+ + | Name | Relationship | Address | Phone | + + +---------+ + | Per None, PT | ECON | Unknown | Unavailable | + + +---------+ + Care Team Providers + +------+ + | Care Nursing Assoc Name | Role | Phone | + +------+ + | Etienne Barnes PA-C | PCP | | + +------+ + Encounter Details +--------+ + + + + | Date | Type | Department | Care Team | Description | +--------+ + + + + | 06/07/ | Document-Sc | UNKNOWN DEPARTMENT | Unknown . | | | 2014 | anned | [address] [facility] | | | | | | [address] | | | | | | [place], [place] | | | | | | [address] | | | +--------+ + + + [...]
--- OUTSIDE RECORDS SUMMARY | ~2019-04-30 | XMS | Encounter Summary ---
Demographics + + + | Address | [address] | | | [place] [address] | + + + | Home Phone | | + + + | Preferred Language | Unknown | + + + | Marital Status | Single | + + + | Methodist Affiliation | NON | + + + | Race | White | + + + | Ethnic Group | Not or | + + + Author + + + | Author | [facility] | + + + | Organization | [facility] | + + + | Address | Unknown | + + + | Phone | Unavailable | + + + Support + + +---------+ + | Name | Relationship | Address | Phone | + + +---------+ + | Per None, PT | ECON | Unknown | Unavailable | + + +---------+ + Care Team Providers + +------+ + | Care Java Solutions Architect Name | Role | Phone | + +------+ + | Etienne Barnes PA-C | PCP | | + +------+ + Encounter Details +--------+ + + + + | Date | Type | Department | Care Team | Description | +--------+ + + + + | 06/15/ | Document-Sc | UNKNOWN DEPARTMENT | Unknown . | | | 2014 | anned | [address] [facility] | | | | | | [address] | | | | | | [place], [place] | | | | | | [address] | | | +--------+ + + + [...] + + + | RADIOLOGY | | 06/15/2014 | | Results for this | | | | 12:00 AM | | procedure are in the | | | | PST | | results section. | + +--------+ + + + documented in this encounter Results RADIOLOGY (06/15/2014 12:00 AM PST) + + + | Narrative | Performed At | + + + | | | | | | + + + + + | Procedure Note | + + | Inna Stark - 09/14/2014 1:01 PM PDT | + + documented in this encounter Visit Diagnoses Not on filedocumented in this encounter"
--- OUTSIDE RECORDS SUMMARY | ~2019-04-30 | XMS | Encounter Summary ---
Demographics + + + | Address | [address] | | | [place] [address] | + + + | Home Phone | | + + + | Preferred Language | Unknown | + + + | Marital Status | Single | + + + | Amish Affiliation | NON | + + + | Race | White | + + + | Ethnic Group | Not or | + + + Author + + + | Author | [facility] | + + + | Organization | [facility] | + + + | Address | Unknown | + + + | Phone | Unavailable | + + + Support + + +---------+ + | Name | Relationship | Address | Phone | + + +---------+ + | Per None, PT | ECON | Unknown | Unavailable | + + +---------+ + Care Team Providers + +------+ + | Care Computer Game Designer Name | Role | Phone | + +------+ + | Jae Robin MD | PCP | | + +------+ + Reason for Visit + + + | Reason | Comments | + + + | Appointment Question | | + + + Encounter Details +--------+ + + + + | Date | Type | Department | Care Team | Description | +--------+ + + + + | 01/11/ | Telephone | Urology Adult | Wang Canchola MD | Appointment Question | | 2009 | | [address] | [address] | | | | | Mailcode: CH10U | [place], [place] | | | | | [facility] | [address] | | | | | and [address], | [phone] | | | | | [facility] | | | | | | Floor [place], [place] | | | | | | [address] | | | | | | [phone] | | | +--------+ + + + [...]
--- OUTSIDE RECORDS SUMMARY | ~2019-04-30 | XMS | Encounter Summary ---
Demographics + + + | Address | [address] | | | [place] [address] | + + + | Home Phone [...] Team Providers + +------+ + | Care Pocket Maker Name | Role | Phone | + +------+ + PCP | Unavailable | + +------+ + Reason for Visit +--------+ + | Reason | Comments | +--------+ + | Pain | | +--------+ + Encounter Details +--------+ + + + + | Date | Type | Department | Care Team | Description | +--------+ + + + + | 06/19/ | Telephone | [facility] | Jeancarlos Marley MD | Pain | | 2014 | | [place] [address] [address] | [address] | | | | | [address] | [place], [place] | | | | | Mailcode: OC8D | [address] | | | | | [facility] | [phone] | | | | | and Healing, | | | | | | [address] | | | | | | [place], [place] | | | | | | [address] | | | | | | [phone] | | | +--------+ + + + [...]
--- OUTSIDE RECORDS SUMMARY | ~2019-04-30 | XMS | Encounter Summary ---
Demographics + + + | Address | [address] | | | [place] [address] | + + + | Home Phone [...] Team Providers + +------+ + | Care Frame Wirer Name | Role | Phone | + [...] | Appointment | | 2009 | | [address] | [address] | | | | | Mailcode: CH10U | [place], [place] | | | | | [facility] | [address] | | | | | and Healing, | [phone] | | | | | | | | | | | Floor [place], [place] | | | | | | [address] | | | | | | [phone] | | | +--------+ + + + [...]
--- OUTSIDE RECORDS SUMMARY | ~2019-04-30 | XMS | Encounter Summary ---
Demographics + + + | Address | [address] | | | [place] [address] | + + + | Home Phone | | + + + | Preferred Language | Unknown | + + + | Marital Status | Single | + + + | Jainism Affiliation | NON | + + + [...] Team Providers + +------+ + | Care Soiled Linen Distributor Name | Role | Phone | + [...] | | | | Mailcode: CH10U | [place], [place] | | | | | [facility] | [address] | | | | | and Healing, | [phone] | | | | | [facility] | | | | | | Floor [place], [place] | | | | | | [address] | | | | | | [phone] | | | +--------+ + + + [...]
--- OUTSIDE RECORDS SUMMARY | ~2019-04-30 | XMS | Encounter Summary ---
Demographics + + + | Address | GENERAL DELIVERY | | | [place] [address] | + + + | Home Phone | | + + + | Preferred Language | Unknown | + + + | Marital Status | Single | + + + | Confucianism Affiliation | NON | + + + | Race | White | + + + | Ethnic Group | Not or | + + + Author + + + | Author | [facility] | + + + | Organization | [facility] | + + + | Address | Unknown | + + + | Phone | Unavailable | + + + Support + + +---------+ + | Name | Relationship | Address | Phone | + + +---------+ + | Per None, PT | ECON | Unknown | Unavailable | + + +---------+ + Care Team Providers + +------+ + | Care Product Support Consultant Name | Role | Phone | [...] | | | | | HOSPITAL | [place], [place] | | | | | | [address] | [address] | | | | | | [address] | Phone: | | | | | | [place], [place] | [phone] | | | | | | [address] | Fax: | | | | | | Phone: | [phone] | | | | | | [phone] | | | | | | | Fax: | | | | | | | [phone] | | +--------+--------+ + + + + Encounter Details +--------+---------+ + + + | Date | Type | Department | Care Team | Description | +--------+---------+ + + + | 03/07/ | Office | Urology Adult | Wang Canchola MD | Unspecified | | 2009 | Visit | [address] | [address] | retention of urine; | | | | Mailcode: CH10U | [place], [place] | Voiding dysfunction | | | | [facility] | [address] | | | | | and Healing, | [phone] | | | | | Building | | | | | | Floor [place], [place] | | | | | | [address] | | | | | | [phone] | | | +--------+---------+ + + + [...] He is currently an inpatient in the [facility] for schizo-affective disorder. Since the onset of [...] Lab) | | | | | | [facility] | | | | | | [address] | | | | [address] | | | | | | [place] [address] | | | | | | [place] [address] | | | | + + + + + + + + | Specimen | + + | Urine - Catheter - | | single | + + + + + + + | Performing | Address | City/State/Zipcode | Phone Number | | Organization | | | | + + + + + | [facility] | [address] | [place] [address] | | | [facility] | | | | + + + + + documented in this encounter Visit Diagnoses + + | Diagnosis | + + | Retention of urine, unspecified | + + | Voiding dysfunction Unspecified disorder of urethra and urinary tract | + + documented in this encounter
--- OUTSIDE RECORDS SUMMARY | ~2019-04-30 | XMS | Clinical Summary ---
Demographics + + + | Address | GENERAL DELIVERY | | | [place] [address] | + + + | Home Phone [...] Team Providers + +------+ + | Care Weighbridge Operator Name | Role | Phone | + +------+ + | Fam Donnelly MD | PCP | | + +------+ + Source Comments GUSTAVO is fully live on both [facility] InPatient.[facility] Allergies + + + + + + [...] | | | + +--------+ +--------+-------+---------+--------+ | MAINTENANCE HELPER MEDICAID | MAINTENANCE HELPER | xxxxxxxx | 05/22/19 | | | [...] | 1980 | [phone] | [place] [address] | | | linda | | | 3 (Home) | | + +--------+ +--------+ + + | Peng Richardson | Agency | Self | [birth year] | | GENERAL DELIVERY | | | | | 1980 | [phone] | [place] [address] | | | | | | 3 (Home) | | + +--------+ +--------+ + + Advance Directives + + + + + | Type | Date Recorded | Patient | Explanation | | | | Air Box Tester | | + + + + + | Advance | | | | | Directives and | | | | | Living Will | | | | + + + + + | Power of | | | | | Barrel Bung Remover And Dumper | | | | + + + + +
--- OUTSIDE RECORDS SUMMARY | ~2019-04-30 | XMS | Encounter Summary ---
Demographics + + + | Address | GENERAL DELIVERY | | | [place] [address] | + + + | Home Phone [...] Team Providers + +------+ + | Care Quality Engineer Name | Role | Phone | + +------+ + | [place] | PCP | | + +------+ + Encounter Details +--------+ + + + + | Date | Type | Department | Care Team | Description | +--------+ + + + + | 02/27/ | Telephone | [facility] | Jeancarlos Marley MD | | | 2007 | | [place] [address] [address] | [address] | | | | [address] | [place], [place] | | | | | Mailcode: OC8D | [address] | | | | | [facility] | [phone] | | | | | and Healing, | | | | | | [address] | | | | | | [place], [place] | | | | | | [address] | | | | | | [phone] | | | +--------+ + + + [...]
--- OUTSIDE RECORDS SUMMARY | ~2019-04-30 | XMS | Encounter Summary ---
Demographics + + + | Address | GENERAL DELIVERY | | | [place] [address] | + + + | Home Phone | | + + + | Preferred Language | Unknown | + + + | Marital Status | Single | + + + | Yarsani Affiliation | NON | + + + [...] Team Providers + +------+ + | Care Vice President Talent Management Name | Role | Phone | + [...] | | | | | HOSPITAL | [place], [place] | | | | | | [address] | [address] | | | | | | [address] | Phone: | | | | | | [place], [place] | [phone] | | | | | | [address] | Fax: | | | | | | Phone: | [phone] | | | | | | [phone] | | | | | | | Fax: | | | | | | | [phone] | | +--------+--------+ + + + + [...] | | | | Mailcode: CH10U | [place], [place] | Voiding dysfunction | | | | [facility] | [address] | | | | | and Healing, | [phone] | | | | | Building | | | | | | Floor [place], [place] | | | | | | [address] | | | | | | [phone] | | | +--------+---------+ + + + [...] He is currently an inpatient in the [facility] for schizo-affective disorder. Since the onset [...] Lab) | | | | | | [facility] | | | | | | [address] | | | | | | [place] [address] | | | | | | [place] [address] | | | | + + + + + + + + | Specimen | + + | Urine - Catheter - | | single | + + + + + + + | Performing | Address | City/State/Zipcode | Phone Number | | Organization | | | | + + + + + | [facility] | [address] | [place] [address] | | | [facility]CRO | | | | + + + + + documented in this encounter Visit Diagnoses + + | Diagnosis | + + | Retention of urine, unspecified | + + | Voiding dysfunction Unspecified disorder of urethra and urinary tract | + + documented in this encounter
--- OUTSIDE RECORDS SUMMARY | ~2019-04-30 | XMS | Encounter Summary ---
Demographics + + + | Address | GENER[place] DELIVERY | | | [place] [address] | + + + | Home Phone | | + + + | Preferred Language | Unknown | + + + | Marital Status | Single | + + + | Rastafari Affiliation | NON | + + + [...] Team Providers + +------+ + | Care Reliability Manager Name | Role | Phone | + +------+ + PCP | Unavailable | + +------+ + Encounter Details +--------+------+ + + + | Date | Type | Department | Care Team | Description | +--------+------+ + + + | 12/23/ | Lab | Laboratory at [facility] | | RUQ Abdominal Pain; | | 2007 | | [address] | | Chronic Hepatitis C | | | | [place], [place] | | without Mention of | | | | [address] | | Hepatic Coma | | | | [phone] | | | +--------+------+ + + + [...] | + + + + + | [facility] | [address] | [place] [address] | | | PATHOLOGY | [address] | | | + + + + + | [facility] | [facility] [address] | [place] [address] | | | PATHOLOGY | [address] [...] | + + + + + | [facility] DEPARTMENT OF | [address] [facility] | [facility] [place] [address] | | | PATHOLOGY | [address] | | | + + + + + | [place] DEPARTMENT OF | [address] [facility] | [place] [address] | | | PATHOLOGY | [address] [...] | + + + + + | [facility] | [address] [facility] | [place] [address] | | | PATHOLOGY | [address] | | | + + + + + | [facility] | [address] [facility] | [place] [address] | | | PATHOLOGY | [address] [...] Performed At | + + + | [id number] Estimated GFR > 60 mL/min/1.73 sq m if non- | [facility] | | [place] [id number] Estimated GFR > 60 mL/min/1.73 sq m if | DEPARTMENT OF | | [place] GFR is estimated using the MDRD equation [...] | + + + + + | [facility] | [address] [facility] | [place] [address] | | | PATHOLOGY | [address] | | | + + + + + | [facility] | [address] | [place] [address] | | | PATHOLOGY | [address] | | | + + + + + documented in this encounter Visit Diagnoses + + | Diagnosis | + + | RUQ abdominal pain Abdominal pain, right upper quadrant | + + | Chronic hepatitis C without mention of hepatic coma | + + documented in this encounter"
--- OUTSIDE RECORDS SUMMARY | ~2019-04-30 | XMS | Encounter Summary ---
Demographics + + + | Address | GENERAL DELIVERY | | | [place] [address] | + + + | Home Phone [...] Author + + + | Author | [facility] | + + + | Organization | [facility] | + + + | Address | Unknown | + + + | Phone | Unavailable | + + + Support + + +---------+ + | Name | Relationship | Address | Phone | + + +---------+ + | Per None, PT | ECON | Unknown | Unavailable | + + +---------+ + Care Team Providers + +------+ + | Care Beading Machine Operator Name | Role | Phone | [...] | | | | | [address] | [place], [place] | | | | | [facility] | [address] | | | | | (MNP/OLD [facility]) | [phone] | | | | | [place], [place] | | | | | | [address] | | | | | | [phone] | | | +--------+ + + + [...] Discharge Instructions Instructions Katie Kuo RN - 02/14/2011[facility] After Reyan Catheter & Leg Bag Follow the guidelines [...] from 8:00 4:30, call the Urology Clinic [phone]. After hours, weekend and holidays call the Hospital Finished C[facility]ar Maker at [phone]. Ask for them to page your doctor. Your doctor is RETURN APPOINTMENT Pre-Scheduled for March 31, 2011 @ 10:45 AM Call the Urology clinic to confirm this appointment . Urology Clinic [phone] Please call the clinic if you need [...]
--- OUTSIDE RECORDS SUMMARY | ~2019-04-30 | XMS | Encounter Summary ---
Demographics + + + | Address | GENERAL DELIVERY | | | [place] [address] | + + + | Home Phone [...] Author + + + | Author | [facility] | + + + | Organization | [facility] | + + + | Address | Unknown | + + + | Phone | Unavailable | + + + Support + + +---------+ + | Name | Relationship | Address | Phone | + + +---------+ + | Per None, PT | ECON | Unknown | Unavailable | + + +---------+ + Care Team Providers + +------+ + | Care Tube Station Attendant Name | Role | Phone | + +------+ + PCP | Unavailable | + +------+ + Encounter Details +--------+ + + + + | Date | Type | Department | Care Team | Description | +--------+ + + + + | 06/15/ | Document-Sc | Digestive Health | Jeancarlos Marley MD | | | 2015 | anned | [place] [address] [address] | [address] | | | | | [address] | [place], [place] | | | | | Mailcode: OC8D | [address] | | | | | [facility] | [phone] | | | | | and Healing, | | | | | | [address] | | | | | | [place], [place] | | | | | | [address] | | | | | | [phone] | | | +--------+ + + + [...]
--- OUTSIDE RECORDS SUMMARY | ~2019-04-30 | XMS | Encounter Summary ---
Demographics + + + | Address | GENERAL DELIVERY | | | [place] [address] | + + + | Home Phone [...] Providers + +------+ + | Care Vp Genetic Name | Role | Phone | + [...] | | | PROVIDER PER | CH10U [place] | | | | | | PT | for Health | | | | | | | and Healing, | | | | | | | Building [address], | | | | | | | 10th Floor | | | | | | | [place], [place] | | | | | | | [address] | | | | | | | Phone: | | | | | | | [phone] | | | | | | | Fax: | | | | | | | [phone] | +--------+--------+ + + + + Encounter [...] | | | | Mailcode: CH10U | [facility] [place] | | | | | [facility] | [address] | | | | | and Healing, | [phone] | | | | | [facility] | | | | | | Floor [place], [place] | | | | | | [address] | | | | | | [phone] | | | +--------+---------+ + + + [...] out of wound for easy remov al/change [facility] present and packing reviewed. A/P: Wound [...]
--- OUTSIDE RECORDS SUMMARY | ~2019-04-30 | XMS | Encounter Summary ---
Demographics + + + | Address | GENERAL DELIVERY | | | [place] [address] | + + + | Home Phone [...] Author | [facility] | + + + | Organization | [facility] | + + + | Address | Unknown | + + + | Phone | Unavailable | + + + Support + + +---------+ + | Name | Relationship | Address | Phone | + + +---------+ + | Per None, PT | ECON | Unknown | Unavailable | + + +---------+ + Care Team Providers + +------+ + | Care Oyster Worker Name | Role | Phone | + +------+ + PCP | Unavailable | + +------+ + Reason for Visit + + + | Reason | Comments | + + + | Blood Test Results | Outside labs from [facility] 06/08/14. | + + + Encounter Details +--------+ + + + + | Date | Type | Department | Care Team | Description | +--------+ + + + + | 06/13/ | Documentati | Digestive Health | Jeancarlos Marley MD | Blood Test Results | | 2014 | on | Center at [facility] [address] | [address] | (Outside labs from | | | | [address] | [place], [place] | [facility] | | | | Mailcode: OC8D | [address] | 06/08/14.) | | | | [facility] | [phone] | | | | | and Healing, | | | | | | [address] | | | | | | [place], [place] | | | | | | [address] | | | | | | [phone] | | | +--------+ + + + [...] | + +---------+ + + | NON [facility] | | | | + +---------+ + + documented in this encounter Visit Diagnoses Not on filedocumented in this encounter"
--- OUTSIDE RECORDS SUMMARY | ~2019-04-30 | XMS | Encounter Summary ---
Demographics + + + | Address | GENERAL DELIVERY | | | [place] [address] | + + + | Home Phone | | + + + | Preferred Language | Unknown | + + + | Marital Status | Single | + + + | Adventism Affiliation | NON | + + + [...] Team Providers + +------+ + | Care Trip Motor Operator Name | Role | Phone | [...] Required | | hepatitis C | [address] | [address] | | | | | without | [address] | Ave | | | | | mention of | [place], | [place], [place] | | | | | hepatic coma | [place] [address] | [address] | | | | | Procedures | Phone: | Phone: | | | | | CONSULT TO | [phone] | [phone] | | | | | HEPATOLOGY | Fax: | Fax: | | | | | | [phone] | [phone] | +--------+ + + + + + Encounter Details +--------+---------+ + + + | Date | Type | Department | Care Team | Description | +--------+---------+ + + + | 02/27/ | Office | Digestive Health | Jeancarlos Rich MD | Chronic Hepatitis C | | 2007 | Visit | Center at [facility] [address] | [address] | without Mention of | | | | [address] | [place], [place] | Hepatic Coma | | | | Mailcode: OC8D | [address] | (Primary Dx) | | | | [facility] | [phone] | | | | | and Healing, | | | | | | [address] | | | | | | [place], [place] | | | | | | [address] | | | | | | [phone] | | | +--------+---------+ + + + [...] on filedocumented as of this encounter Results [facility] - INR (PROTHROMBINTIME) (02/28/2008 9:24 AM PDT) [...] + + + + + | [facility] | [address] [facility] | [place] [address] | | | PATHOLOGY | [address] | | | + + + + + | [facility] | [address] [place] [address] | [place] [address] | | | PATHOLOGY | [address] [...] + + + + + | [facility] | [address] [facility] | [place] [address] | | | PATHOLOGY | [address] | | | + + + + + | [facility] | [address] [place] [address] | [place] [address] | | | PATHOLOGY | [address] [...] DEPARTMENT OF | [address] | [place] [address] | | | PATHOLOGY | [address] | | | + + + + + | [facility] | [address] | [place] [address] | | | PATHOLOGY | [address] | | | + + + + + documented in this encounter Visit Diagnoses + + | Diagnosis | + + | Chronic hepatitis C without mention of hepatic coma - Primary | + + documented in this encounter"
--- OUTSIDE RECORDS SUMMARY | ~2019-04-30 | XMS | Encounter Summary ---
Demographics + + + | Address | GENERAL DELIVERY | | | [place] [address] | + + + | Home Phone | | + + + | Preferred Language | Unknown | + + + | Marital Status | Single | + + + | Restorationism Affiliation | NON | + + + | Race | White | + + + | Ethnic Group | Not or | + + + Author + + + | Author | [facility] | + + + | Organization | [facility] | + + + | Address | Unknown | + + + | Phone | Unavailable | + + + Support + + +---------+ + | Name | Relationship | Address | Phone | + + +---------+ + | Per None, PT | ECON | Unknown | Unavailable | + + +---------+ + Care Team Providers + +------+ + | Care Cable Weaver Name | Role | Phone | + [...] | | [address] | [address] | | | | | Mailcode: CH10U | [place], [place] | | | | | [facility] | [address] | | | | | and Healing, | [phone] | | | | | | | | | | | Floor [place], [place] | | | | | | [address] | | | | | | [phone] | | | +--------+ + + + [...]
--- OUTSIDE RECORDS SUMMARY | ~2019-04-30 | XMS | Encounter Summary ---
Demographics + + + | Address | GENERAL DELIVERY | | | [place] [address] | + + + | Home Phone [...] Team Providers + +------+ + | Care Site Foreman Name | Role | Phone | + [...] Required | | hepatitis C | [address] | [address] | | | | | without | [address] | Ave | | | | | mention of | [place], | [place], [place] | | | | | hepatic coma | [place] [address] | [address] | | | | | Procedures | Phone: | Phone: | | | | | CONSULT TO | [phone] | [phone] | | | | | HEPATOLOGY | Fax: | Fax: | | | | | | [phone] | [phone] | +--------+ + + + + + Encounter Details +--------+---------+ + + + | Date | Type | Department | Care Team | Description | +--------+---------+ + + + | 02/27/ | Office | Digestive Health | Jeancarlos Rich MD | Chronic Hepatitis C | | 2007 | Visit | Center at [facility] [address] | [address] | without Mention of | | | | [address] | [place], [place] | Hepatic Coma | | | | Mailcode: OC8D | [address] | (Primary Dx) | | | | [facility] | [phone] | | | | | and Healing, | | | | | | [address] | | | | | | [place], [place] | | | | | | [address] | | | | | | [phone] | | | +--------+---------+ + + + [...] on filedocumented as of this encounter Results [facility] - INR (PROTHROMBINTIME) (02/28/2008 9:24 AM [...] + + + + + | [facility] | [address] [facility] | [place] [address] | | | PATHOLOGY | [address] | | | + + + + + | [facility] | [address] [place] [address] | [place] [address] | | | PATHOLOGY | [address] [...] + + + + + | [facility] | [address] [facility] | [place] [address] | | | PATHOLOGY | [address] | | | + + + + + | [facility] | [address] [place] [address] | [place] [address] | | | PATHOLOGY | [address] [...] DEPARTMENT OF | [address] | [place] [address] | | | PATHOLOGY | [address] | | | + + + + + | [facility] | [address] | [place] [address] | | | PATHOLOGY | [address] | | | + + + + + documented in this encounter Visit Diagnoses + + | Diagnosis | + + | Chronic hepatitis C without mention of hepatic coma - Primary | + + documented in this encounter"
--- OUTSIDE RECORDS SUMMARY | ~2019-04-30 | XMS | Encounter Summary ---
Demographics + + + | Address | GENERAL DELIVERY | | | [place] [address] | + + + | Home Phone | | + + + | Preferred Language | Unknown | + + + | Marital Status | Single | + + + | Sikhism Affiliation | NON | + + + [...] Team Providers + +------+ + | Care Activities Coordinator Name | Role | Phone | [...] + + | 06/19/ | Telephone | [facility] | Jeancarlos Marley MD | Pain | | 2014 | | [place] [address] [address] | [address] | | | | | [address] | [place], [place] | | | | | Mailcode: OC8D | [address] | | | | | [facility] | [phone] | | | | | and Healing, | | | | | | [address] | | | | | | [place], [place] | | | | | | [address] | | | | | | [phone] | | | +--------+ + + + [...]
--- OUTSIDE RECORDS SUMMARY | ~2019-04-30 | XMS | Encounter Summary ---
Demographics + + + | Address | GENERAL DELIVERY | | | [place] [address] | + + + | Home Phone [...] Team Providers + +------+ + | Care Sap Administrator Name | Role | Phone | + [...] | | | Ave Mailcode: CH6D | [place], [place] | | | | | [facility] | [address] | | | | | and Healing, | [phone] | | | | | [facility] | | | | | | Floor [place], [place] | | | | | | [address] | | | | | | [phone] | | | +--------+ + + + [...]
--- OUTSIDE RECORDS SUMMARY | ~2019-04-30 | XMS | Encounter Summary ---
Demographics + + + | Address | GENERAL DELIVERY | | | [place] [address] | + + + | Home Phone [...] Providers + +------+ + | Care Communications Scientist Name | Role | Phone | + +------+ + PCP | Unavailable | + +------+ + Encounter Details +--------+ + + + + | Date | Type | Department | Care Team | Description | +--------+ + + + + | 12/27/ | Telephone | [facility] | Jeancarlos Marley MD | | | 2007 | | [place] [address] [address] | [address] | | | | | [address] | [place], [place] | | | | | Mailcode: OC8D | [address] | | | | | [facility] | [phone] | | | | | and Healing, | | | | | | [address] | | | | | | [place], [place] | | | | | | [address] | | | | | | [phone] | | | +--------+ + + + [...]
--- OUTSIDE RECORDS SUMMARY | ~2019-04-30 | XMS | Encounter Summary ---
Demographics + + + | Address | GENERAL DELIVERY | | | [place] [address] | + + + | Home Phone [...] Team Providers + +------+ + | Care Seed Corn Production Manager Name | Role | Phone | [...] | | | | Mailcode: CH10U | [place], [place] | and counseling | | | | [facility] | [address] | | | | | and Healing, | [phone] | | | | | [facility] | | | | | | Floor [place], [place] | | | | | | [address] | | | | | | [phone] | | | +--------+ + + + [...]
--- OUTSIDE RECORDS SUMMARY | ~2019-04-30 | XMS | Encounter Summary ---
Demographics + + + | Address | [address] DELIVERY | | | [place] [address] | + + + | Home Phone [...] Team Providers + +------+ + | Care Core Inserter Name | Role | Phone | + +------+ + PCP | Unavailable | + +------+ + Reason for Visit + + + | Reason | Comments | + + + | Blood Test Results | Outside labs from [facility] 06/08/14. | + + + Encounter Details +--------+ + + + + | Date | Type | Department | Care Team | Description | +--------+ + + + + | 06/13/ | Documentati | Digestive Health | Jeancarlos Marley MD | Blood Test Results | | 2014 | on | Center at [facility] [address] | [address] | (Outside labs from | | | | [address] | [place], [place] | [facility] | | | | Mailcode: OC8D | [address] | 06/08/14.) | | | | [facility] | [phone] | | | | | and Healing, | | | | | | [address] | | | | | | [place], [place] | | | | | | [address] | | | | | | [phone] | | | +--------+ + + + [...] | + +---------+ + + | NON [facility] | | | | + +---------+ + + documented in this encounter Visit Diagnoses Not on filedocumented in this encounter"
--- OUTSIDE RECORDS SUMMARY | ~2019-04-30 | XMS | Encounter Summary ---
Demographics + + + | Address | [address] [place] | | | [place] [address] | + + + | Home Phone [...] Author + + + | Author | [facility] | + + + | Organization | [facility] | + + + | Address | Unknown | + + + | Phone | Unavailable | + + + Support + + +---------+ + | Name | Relationship | Address | Phone | + + +---------+ + | Per None, PT | ECON | Unknown | Unavailable | + + +---------+ + Care Team Providers + +------+ + | Care Wearing Apparel Shaker Name | Role | Phone | + [...] Required | | hepatitis C | [address] | [address] [facility] | | | | | without | [address] | Ave | | | | | mention of | [place], | [place], [place] | | | | | hepatic coma | [place] [address] | [address] | | | | | Procedures | Phone: | Phone: | | | | | CONSULT TO | [phone] | [phone] | | | | | HEPATOLOGY | Fax: | Fax: | | | | | | [phone] | [phone] | +--------+ + + + + + Encounter Details +--------+---------+ + + + | Date | Type | Department | Care Team | Description | +--------+---------+ + + + | 06/16/ | Office | Dig[facility]ive [facility] | Jeancarlos Marley MD | Chronic Hepatitis C | | 2007 | Visit | Center at [facility] [address] | [address] | without Mention of | | | | [address] | [place], [place] | Hepatic Coma | | | | Mailcode: OC8D | [address] | (Primary Dx) | | | | [facility] | [phone] | | | | | and Healing, | | | | | | [address] | | | | | | [place], [place] | | | | | | [address] | | | | | | [phone] | | | +--------+---------+ + + + [...] | | | | | | Dr. ABNDAR KIM | | | | + + + + + + + + | Specimen | + + | | + + + +---------+ + + | Performing | Address | City/State/[facility] | Phone Number | | Organization | [...] | | | | | determined bythe [facility] | | | | | | [...] | | | | | Improvement Act [id number]. | | | | | | The [facility] | | | | | | Laboratory is a fully | | | | | | licensed and/ | | | | | | oraccredited clinical | | | | | | laboratory under CLIA, | | | | | | [place], and the State of | | | | | | [place]. | | | | + + + + + + + + | Specimen | + + | | + + + + + + + | Performing | Address | City/State/Zipcode | Phone Number | | Organization | | | | + + + + + | [facility] | [facility] | [place] [address] | | | GENETICS LABS | [address] | | | | | [address]VE. [...] Iron and TIBC, Serum Test performed by [facility] | | | [facility]. | | + + + + + + + + | Performing | Address | City/State/Zipcode | Phone Number | | Organization | | | | + + + + + | [facility] | [address] | [place] [address] | | | LABORATORY | | | [...] | | | [facility] | | | [address], [place] | | | [address] | | + + + + + + + + | Performing | Address | City/State/Zipcode | Phone Number | | Organization | | | | + + + + + | [facility] | [address] | [place] [address] | | | LABORATORY | | | [...] + + | Test performed by [facility]. | | + + + + + + + + | Performing | Address | City/State/Zipcode | Phone Number | | Organization | | | | + + + + + | [facility] | [address] | [place] [address] | | | LABORATORY | | | [...] by | | | | | | [facility] | | | | | | [facility]. | | | | + + + + + + + + | Specimen | + + | | + + + + + + + | Performing | Address | City/State/Zipcode | Phone Number | | Organization | | | | + + + + + | [facility] | [address] | [place] [address] | | | LABORATORY | | | [...] + | [facility] DEPARTMENT OF | [address] [facility] | [place] [address] | | | PATHOLOGY | [address] | | | + + + + + | [facility] DEPARTMENT OF | [address] | [place] [address] | | | PATHOLOGY | [address] [...] | + + + + + | [facility] DEPARTMENT OF | [facility] | [place] [address] | | | PATHOLOGY | [address] | | | + + + + + | [facility] DEPARTMENT OF | [address] | [place] [address] | | | PATHOLOGY | [address] | | | + + + + + documented in this encounter Visit Diagnoses + + | Diagnosis | + + | Chronic hepatitis C without mention of hepatic coma - Primary | + + documented in this encounter
--- OUTSIDE RECORDS SUMMARY | ~2019-04-30 | XMS | Encounter Summary ---
Demographics + + + | Address | [address] | | | [place] [address] | + + + | Home Phone [...] Author + + + | Author | [facility] | + + + | Organization | [facility] | + + + | Address | Unknown | + + + | Phone | Unavailable | + + + Support + + +---------+ + | Name | Relationship | Address | Phone | + + +---------+ + | Per None, PT | ECON | Unknown | Unavailable | + + +---------+ + Care Team Providers + +------+ + | Care Physical Therapy Coordinator Name | Role | Phone | [...] Abdominal pain | | 2007 | | [place] [address] [address] | [address] | (liver pain) | | | | [address] | [place], [place] | | | | | Mailcode: OC8D | [address] | | | | | [facility] | [phone] | | | | | and Healing, | | | | | | [address] | | | | | | [place], [place] | | | | | | [address] | | | | | | [phone] | | | +--------+ + + + [...] | + + + + + | [facility] DEPARTMENT OF | [address] [facility] | [facility] [place] [address] | | | PATHOLOGY | [address] | | | + + + + + | [facility] DEPARTMENT OF | [address] [facility] | [place] [address] | | | PATHOLOGY | [address] [...] + + + + | [facility] | [address] [facility] | [place] [address] | | | PATHOLOGY | [address] | | | + + + + + | [facility] | [address] [facility] | [place] [address] | | | PATHOLOGY | [address] [...] Performed At | + + + | [id number] Estimated GFR > 60 mL/min/1.73 sq m if non- | [facility] | | [place] [id number] Estimated GFR > 60 mL/min/1.73 sq m if | DEPARTMENT OF | | [place] GFR is estimated using the MDRD equation [...] + + + + | [facility] | [address] [facility] | [place] [address] | | | PATHOLOGY | [address] | | | + + + + + | [facility] | [address] | [place] [address] | | | PATHOLOGY | [address] [...] spleen | | | | | | [id number] cm in | | | | | [...] | | + +---------+ + + | [facility] DEPARTMENT OF | | [...]
--- OUTSIDE RECORDS SUMMARY | ~2019-04-30 | XMS | Encounter Summary ---
Demographics + + + | Address | [address] | | | [place] [address] | + + + | Home Phone [...] Team Providers + +------+ + | Care Water Purifier Name | Role | Phone | + +------+ + | Etienne Barnes PA-C | PCP | | + +------+ + Encounter Details +--------+ + + + + | Date | Type | Department | Care Team | Description | +--------+ + + + + | 06/07/ | Document-Sc | UNKNOWN DEPARTMENT | Unknown . | | | 2014 | anned | [address] [facility] | | | | | | [address] | | | | | | [place], [place] | | | | | | [address] | | | +--------+ + + + [...]
--- OUTSIDE RECORDS SUMMARY | ~2019-04-30 | XMS | Encounter Summary ---
Demographics + + + | Address | [address] | | | [place] [address] | + + + | Home Phone [...] Team Providers + +------+ + | Care Cloud Subject Matter Expert Name | Role | Phone | + [...] Abdominal pain | | 2008 | | [place] [address] [address] | [address] | | | | | [address] | [place], [place] | | | | | Mailcode: OC8D | [address] | | | | | [facility] | [phone] | | | | | and [place], | | | | | | [address] | | | | | | [place], [place] | | | | | | [address] | | | | | | [phone] | | | +--------+ + + + [...]
--- OUTSIDE RECORDS SUMMARY | ~2019-04-30 | XMS | Encounter Summary ---
Demographics + + + | Address | [address] | | | [place] [address] | + + + | Home Phone | | + + + | Preferred Language | Unknown | + + + | Marital Status | Single | + + + | Mandaen Affiliation | NON | + + + [...] Team Providers + +------+ + | Care Irrigating Pump Operator Name | Role | Phone | [...] Abdominal pain | | 2007 | | [place] [address] [address] | [address] | | | | [address] | [place], [place] | | | | | Mailcode: OC8D | [address] | | | | | [facility] | [phone] | | | | | and Healing, | | | | | | [address] | | | | | | [place], [place] | | | | | | [address] | | | | | | [phone] | | | +--------+ + + + [...]
--- OUTSIDE RECORDS SUMMARY | ~2019-04-30 | XMS | Encounter Summary ---
Demographics + + + | Address | [address] | | | [place] [address] | + + + | Home Phone [...] Team Providers + +------+ + | Care Electronic Assembly Name | Role | Phone | + [...] | | | | Mailcode: [id number] | [place], [place] | | | | | [facility] | [address] | | | | | and Healing, | [phone] | | | | | [facility] | | | | | | Floor [place], [place] | | | | | | [address] | | | | | | [phone] | | | +--------+ + + + [...]
--- OUTSIDE RECORDS SUMMARY | ~2019-04-30 | XMS | Encounter Summary ---
Demographics + + + | Address | [address] | | | [place] [address] | + + + | Home Phone [...] Team Providers + +------+ + | Care Packing Room Worker Name | Role | Phone | + +------+ + PCP | Unavailable | + +------+ + Encounter Details +--------+ + + + + | Date | Type | Department | Care Team | Description | +--------+ + + + + | 12/27/ | Telephone | [facility] | Jeancarlos Marley MD | | | 2007 | | [place] [address] [address] | [address] | | | | | [address] | [place], [place] | | | | | Mailcode: OC8D | [address] | | | | | [facility] | [phone] | | | | | and Healing, | | | | | | [address] | | | | | | [place], [place] | | | | | | [address] | | | | | | [phone] | | | +--------+ + + + [...]
--- OUTSIDE RECORDS SUMMARY | ~2019-04-30 | XMS | Encounter Summary ---
Demographics + + + | Address | [address] | | | [place] [address] | + + + | Home Phone [...] Team Providers + +------+ + | Care [facility] Name | Role | Phone | + [...] | | | | Mailcode: [id number] | [place], [place] | and counseling | | | | [facility] | [address] | | | | | and Healing, | [phone] | | | | | [facility] | | | | | | Floor [place], [place] | | | | | | [address] | | | | | | [phone] | | | +--------+ + + + [...]
--- OUTSIDE RECORDS SUMMARY | ~2019-04-30 | XMS | Encounter Summary ---
Demographics + + + | Address | GENERAL DELIVERY | | | [place] [address] | + + + | Home Phone [...] Team Providers + +------+ + | Care 911 Emergency Services Dispatcher Name | Role | Phone | [...] | abdominal | [address] | [address] | | | | | pain | [facility] | Ave | | | | | Neurogenic | Rd | [facility] [place] | | | | | bladder | [facility] [place] | [address] | | | | | Procedures | [address] | Phone: | | | | | CONSULT TO | Phone: | [phone] | | | | | UROLOGY | [phone] | Fax: | | | | | | Fax: | [phone] | | | | | | [phone] | | +--------+--------+ + + + + Reason for Visit + + + | Reason | Comments | + + + | Catheter Problem | | + + + Encounter Details +--------+ + + + + | Date | Type | Department | Care Team | Description | +--------+ + + + + | 02/22/ | Emergency | [facility] Emergency | Fe Walter, | | | 2017 - | | Department [address] | Edith Kelley MD 900 | | | | | [facility] | [facility] | | | 02/23/ | | [facility] | [address], [place] | | | 2017 | | [place], [place] | [address] | | | | | [address] | | | | | | [phone] | | | +--------+ + + + [...] for coming to the Emergency Department at [facility] for your care. You were evaluated for [...] other well. -Be careful about taking other pcnn-eht-dqukwhh medicines, which may contain acetaminophen or ibuprofen and could lead to toxicity. -If you have liver disease, kidney disease or stomach ulcers, the standard doses of these m edicines may be too high for you. -We expect that your pain will improve over the next few days, and do not expect that you w ill need to continue these medicines retirement. You should talk to your primary care [...] your primary care doctor for follow-up and [facility] care. Care delivered in the Emergency Department should not be considered as a substitute for [facility] care and/or specialist care for ongoing medical issues, and it is important that you fo llow up as described above. Thank you for letting us care for you at the [facility] Emergency Department today. Note: If you had [...] [facility] | [address] | [place], [place] | | | ELISSA POINT OF CARE | [address] | [address] | | | TESTS | | | [...] [facility] | [address] | [place] [address] | | | SERVICES, CORE | [address] [...] [facility] | [address] | [place] [address] | | | NANCY MAX | [address] | | | + + + + + URINE CULTURE WORKUP (02/22/2017 11:25 PM PDT) + + + + + + | Component | Value | Ref Range | Performed | Pathologist | | | | | At | Signature | + + + + + + | ORGANISM | Pseudomonas aeruginosa | | IDAL - | | | | (A) | [...] + | DIAL - AIRPORT - | [address] | [place] [address] | | | [place] | | | | + + + [...] [facility] | [address] | [place] [address] | | | NANCY MAX | [address] [...] | + + + + + | [facility] | [address] | [place] [address] | | | NANCY MAX | [address] [...] | + + + + + | [facility] | [address] | [place] [address] | | | MANSOOR, NANCY | [address] [...] | + + + + + | [facility] | [address] | [place] [address] | | | SERVICES, CORE | [address] [...] + + | [facility] | [address] | [place] [address] | | | SERVICES, CORE | [address] [...] | + + + + + | [employer] | [address] [facility] [address] | [place] [address] | | | SERVICES, | [address] | | | | TRANSFUSION MEDICINE | | | | + + + + + ED INFORMATION EXCHANGE (02/22/2017 8:33 PM PDT) + + | Specimen | + + | | + + + + + | Narrative | Performed At | + + + | [id number] This patient has registered at the | COLLECTIVE | | [facility] Emergency Department For more | MEDICAL | | information visit: | TECHNOLOGIES | | [email or web address] | | | [id number] ED Care Guidelines from [facility] Last | | | Updated: 12/03/16 2:35 PM Care Coordination: ENCOURAGE PATIENT | | | TO USE PCP FOR FOLLOW UP AND NON-EMERGENT PROBLEMS. GIVE PATIENT THIS | | | PROMOTIONS EXECUTIVE PRODUCER NAME AND NUMBER FOR HELP AND QUESTIONS. MARSHALL AMADOR ED | | | IRRIGATION EQUIPMENT REMOVER [facility] [phone] These are guidelines | | | and the provider should exercise clinical judgment when providing | | | care. Care History Behavioral 12/03/16 12:00 AM [facility] | | | Hospital [facility] -- ATTN:IVONNE | | | [place] Medical/Surgical 11/03/14 12:00 AM Jonn [place] [facility] | | | Hospital Smoker Methamphetamine abuse Recent Emergency | | | Department Visit Summary Admit Date Facility City State Type Major | | | Type Diagnoses or Chief Complaint Feb 22, 2017 [facility] | | | [facility] [place] [place] Emergency Emergency 10,800. | | | Cath issue Feb 20, [address] [place]. [place] | | | Emergency Emergency dizzy Generalized Body Aches | | | Neuromuscular dysfunction of bladder, unspecified Feb 18, 2017 [facility] | | | [place]. [place] Emergency Emergency Other stimulant | | | abuse, uncomplicated Other retirement (current) drug therapy | | | Nicotine [...] unspecified Feb 16, 2017 | | | [facility] Raj[place]. [place] Emergency Emergency Chief Complaint: | | | Urinary Problem Feb 03, 2017 [facility] | | | [place] Emergency Emergency Chief Complaint: URO MALE Jan | | | 2016 [facility] [place] Emergency | | | Emergency Bipolar disorder, unspecified Nicotine | | | dependence, cigarettes, uncomplicated Other stimulant | | | dependence, uncomplicated Dec 30, 2016 [facility] | | | [place] Emergency Emergency catheter issues Urinary | | | Catheter Insertion Other urethritis Retention of urine, | | | unspecified Other stimulant abuse, uncomplicated Dec 03, | | | 2016 [facility] [place] Emergency Emergency Bipolar | | | disorder, unspecified Schizoaffective disorder, unspecified | | | Other retirement (current) drug therapy Nicotine dependence, | | | unspecified, uncomplicated Anxiety disorder, unspecified | | | Allergy status to other antibiotic agents status Allergy status | | | to other drugs, medicaments and biological substances status | | | Other fatigue Delusional disorders Essential (primary) | | | hypertension Nov 24, 2016 [facility] [place] Emergency | | | Emergency Encounter for other general examination | | | Allergy status to other drugs, medicaments and biological substances | | | status Bipolar disorder, unspecified Other keno terminal operator | | | (current) drug therapy Major depressive disorder, single | | | episode, unspecified Essential (primary) hypertension | | | Recent Inpatient Visit Summary No recorded inpatient visits. | | | E.D. Visit Count (12 mo.) Facility Visits [facility] | | | System 2 [facility] [place] 1 [facility] | | | Center 1 [facility] 1 [facility] | | | Center 2 [facility] ED [address] [facility] 15 | | | Total 23 Note: Visits indicate total known visits. Care | | | Providers Provider PRC Type Phone Fax Service Dates Fam Donnelly, | | | MD TORI Primary Care Current [facility] | | | MENTAL HEALTH, Mental Health Provider ([id number]) | | | [phone] Nov 15, 2016 - Current Summer PAULINA Norman Case or Care | | | Online Education Manager Current The above | | | information is provided for the sole purpose of patient treatment. | | | Use of this information beyond the terms of Data Sharing Memorandum of | | | Understanding and License Agreement is prohibited. In certain cases | | | not all visits may be represented. Consult the aforementioned | | | facilities for additional information. 2017 [employer] | | | [employer] - [place], [place] - | | | [email or web address] | | + + + + + | Procedure Note | + + | Service Account, Rtf Results Inbound - 02/22/2017 8:34 PM PDT Formatting of this | | note might be different from the original.NIRANJAN?NOTIFICATION?02/22/2017 20:33?ROMERO, | | AALIYAH? patient has registered at the [facility] [employer] | | [place] Emergency Department For more information visit: | | [email or web address] ED Care | | [facility] Updated: 12/03/16 2:35 PM Care | | Coordination:ENCOURAGE PATIENT TO USE PCP FOR FOLLOW UP AND NON-EMERGENT PROBLEMS.GIVE | | PATIENT THIS PROMOTIONS EXECUTIVE PRODUCER NAME AND NUMBER FOR HELP AND QUESTIONS.MARSHALL AMADORED CASE | | [place] [facility]ALL BAGGER [facility] [phone] are guidelines and the provider should | | exercise clinical judgment when providing care.Care HistoryBehavioral12/03/16 12:00 AM | | [facility] [employer] -- ATTN:? IVONNE | | CONKEYMedical/Surgical11/03/14 12:00 AM [facility] | | HospitalSmokerMethamphetamine abuseRecent Emergency Department Visit SummaryAdmit Date | | Facility City State Type Major Type Diagnoses or Chief Complaint Feb 22, 2017 [place] | | [facility] [place] Emergency Emergency 10,800. Cath issue Feb | | 2016 [place]. [place] Emergency Emergency dizzy Generalized | | Body Aches Neuromuscular dysfunction of bladder, unspecified Feb 18, [address] | | [place] Emergency Emergency Other stimulant abuse, uncomplicated | | Other retirement (current) drug therapy Nicotine dependence, unspecified, | [...] Complaint: Urinary Problem Sep | | 2016 [facility] [place] Emergency Emergency Chief | | Complaint: URO MALE Jan 25, 2017 [facility] [place] Emergency | | Emergency Bipolar disorder, unspecified Nicotine dependence, cigarettes, | | uncomplicated Other stimulant dependence, uncomplicated Dec 30, 2016 [facility] Michelle | | [place]. [place] Emergency Emergency catheter issues Urinary Catheter | | Insertion Other urethritis Retention of urine, unspecified Other stimulant | | abuse, uncomplicated Dec 03, 2016 [place] Emergency Emergency | | [...] hypertension Nov 24, 2016 [facility] | | [place] Emergency Emergency Encounter for other general examination | | Allergy status to other drugs, medicaments and biological substances status | | Bipolar disorder, unspecified Other keno terminal operator (current) drug therapy Major | | depressive disorder, single episode, unspecified Essential (primary) hypertension | | Recent Inpatient Visit SummaryNo recorded inpatient visits. E.D. Visit Count (12 | | mo.)Facility Visits [facility] 2 [facility] | | [address] 1 [facility] 1 [facility] | | Medical [place] 2 [facility] ED [address] [facility] 15 Total 23 Note: | | Visits indicate total known visits. Care ProvidersProvider PRC Type Phone Fax Service | | Dates Fam Donnelly MD, Primary Care Current [facility] | | MENTAL HEALTH, Mental Health Provider Nov 15, 2016 - | | Current Summer PAULINA Norman Case or Casino Host Current | | The above information is provided for the sole purpose of patient treatment. Use of this | | information beyond the terms of Data Sharing Memorandum of Understanding and License | | Agreement is prohibited. In certain cases not all visits may be represented. Consult the | | aforementioned facilities for additional information. ? 2017 [employer] | | [employer] - [place], [place] - [email or web address] | | Nicotine dependence, cigarettes, uncomplicated | | Other stimulant dependence, uncomplicated | | | |Dec 30, 2016 [facility] [place]. [place] Emergency Emergency | | catheter issues | | Urinary Catheter Insertion | | Other urethritis | | Retention of urine, unspecified | | Other stimulant abuse, uncomplicated | | | |Dec 03, 2016 [facility] [place] [place] [place] Emergency Emergency | | Bipolar disorder, unspecified | | Schizoaffective disorder, unspecified | | Other retirement (current) drug therapy | | Nicotine dependence, unspecified, uncomplicated | | Anxiety disorder, unspecified | | Allergy status to other antibiotic agents status | | Allergy status to other drugs, medicaments and biological substances status | | Other fatigue | | Delusional disorders | | Essential (primary) hypertension | | | |Nov 24, 2016 [facility] [place] Emergency Emergency | | Encounter for other general examination | | Allergy status to other drugs, medicaments and biological substances status | | Bipolar disorder, unspecified | | Other keno terminal operator (current) drug therapy | | Major depressive disorder, single episode, unspecified | | Essential (primary) hypertension | | | | | | | |Recent Inpatient Visit Summary | |No recorded inpatient visits. | | | |E.D. Visit Count (12 mo.) | |Facility Visits | |[facility] 2 | |[facility] 1 | |[facility] 1 | |[facility] 1 | |[facility] 2 | |[facility] ED 1 | |[facility] 15 | |Total 23 | |Note: Visits indicate total known visits. | | | |Care Providers | |Provider PRC Type Phone Fax Service Dates | |Fam Donnelly MD, MD Primary Care Current | |[facility] Mental Health Provider Nov 15, 2016 - Current | |PAULINA Orellana Case or Casino Host Current | | | |The above information is provided for the sole purpose of patient treatment. Use of this in formation beyond the terms of Data Sharing Memorandum of Understanding and License Agreement is prohibited. In | |certain cases not all visits may be represented. Consult the aforementioned facilities for additional information. | |? 2017 [employer] - [place], [place] - [email or web address] | + + + + + + + | Performing | Address | City/State/Zipcode | Phone Number | | Organization | | | | + + + + + | [facility] | [address], | [place], [place] | [phone] | | TECHNOLOGIES | [address] | [address] | | + + + + + [...]
--- OUTSIDE RECORDS SUMMARY | ~2019-04-30 | XMS | Encounter Summary ---
Demographics + + + | Address | GENERAL DELIVERY | | | [place] [address] | + + + | Home Phone [...] Team Providers + +------+ + | Care Construction Project Mgr Name | Role | Phone | + [...] PPV | | | | | | [address] | | | | | | Loop Mailcode: | | | | | | [address] Physician's | | | | | | [facility] | | | | | | [place] [address] | | | | | | [phone] | | | +--------+ + + + [...] | + +---------+ + + | [facility] DEPARTMENT | | | | | RADIOLOGY | | | | + +---------+ + + documented in this encounter Visit Diagnoses Not on filedocumented in this encounter"
--- OUTSIDE RECORDS SUMMARY | ~2019-04-30 | XMS | Encounter Summary ---
Demographics + + + | Address | GENERAL DELIVERY | | | [place] [address] | + + + | Home Phone [...] Team Providers + +------+ + | Care Parks Recreation Director Name | Role | Phone | [...] Abdominal pain | | 2007 | | [place] [address] [address] | [address] | | | | [address] | [place], [place] | | | | | Mailcode: OC8D | [address] | | | | | [facility] | [phone] | | | | | and Healing, | | | | | | [address] | | | | | | [place], [place] | | | | | | [address] | | | | | | [phone] | | | +--------+ + + + [...]
--- OUTSIDE RECORDS SUMMARY | ~2019-04-30 | XMS | Encounter Summary ---
Demographics + + + | Address | GENERAL DELIVERY | | | [place] [address] | + + + | Home Phone [...] Team Providers + +------+ + | Care Plaster Caster Name | Role | Phone | + [...] abd u/s | | 2007 | | [place] at [facility] [address] | [address] | order faxed/mailed) | | | | [address] | [place], [place] | | | | | Mailcode: [id number] | [address] | | | | | [facility] | [phone] | | | | | and [place], | | | | | | [address] | | | | | | [place], [place] | | | | | | [address] | | | | | | [phone] | | | +--------+ + + + [...]
--- OUTSIDE RECORDS SUMMARY | ~2019-04-30 | XMS | Encounter Summary ---
Demographics + + + | Address | GENERAL DELIVERY | | | [place] [address] | + + + | Home Phone [...] Team Providers + +------+ + | Care Piece Cutter Name | Role | Phone | [...] without Mention of | | | | [place], [place] | | Hepatic Coma | | | | [address] | | | | | | [phone] | | | +--------+------+ + + + [...] + documented in this encounter Results [facility] - INR (PROTHROMBINTIME) (02/28/2008 [...] + + + + | [facility] DEPARTMENT OF | [address] | [place] [address] | | | PATHOLOGY | [address] | | | + + + + + | [facility] DEPARTMENT OF | [address] | [place] [address] | | | PATHOLOGY | [address] | | | + + + [...] + + + + | [facility] DEPARTMENT | [address] | [place] [address] | | | PATHOLOGY | [address] | | | + + + + + | [facility] | [address] | [place] [address] | | | PATHOLOGY | [address] | | | + + + + + [facility] - COMPLETE METABOLIC SET [...] DEPARTMENT OF | [address] | [place] [address] | | | PATHOLOGY | [address] | | | + + + + + | [place] DEPARTMENT OF | [address] | [place] [address] | | | PATHOLOGY | [address] | | | + + + + + documented in this encounter Visit Diagnoses + + | Diagnosis | + + | Chronic hepatitis C without mention of hepatic coma | + + documented in this encounter"
--- OUTSIDE RECORDS SUMMARY | ~2019-04-30 | XMS | Encounter Summary ---
Demographics + + + | Address | GENERAL DELIVERY | | | [place] [address] | + + + | Home Phone [...] Team Providers + +------+ + | Care Skein Tier Name | Role | Phone | + [...] | | | retention | [place] | [address] | | | | | Urinary | STATE | Ave | | | | | Retention | HOSPITAL | [place], [place] | | | | | Procedures | [address] | [address] | | | | | REQUEST TO | [address] | Phone: | | | | | SURGERY | [place] | [phone] | | | | | FOOD PREPARATION SUPERVISOR | [address] | Fax: | | | | | [place] | Phone: | [phone] | | | | | INCISE/DRAIN | [phone] | | | | | | BLADDER | Fax: | | | | | | suprapubic | [phone] | | | | | | cystostomy [...] | | | | | | | [address] | | | | | | | Ave | | | | | | | [place], [place] | | | | | | | [address] | | | | | | | Phone: | | | | | | | [phone] | | | | | | | Fax: | | | | | | | [phone] | +--------+--------+ + + + + Encounter [...] | | | | Mailcode: CH10U | [place], [place] | | | | | [facility] | [address] | | | | | and Healing, | [phone] | | | | | | | | | | | Floor [facility] [place] | | | | | | [address] | | | | | | [phone] | | | +--------+ + + + [...] Armand Ordonez MD - 01/22/2011 12:51 PM [id number], former patient of Dr. Canchola, is an inpat ient at [facility] for at least 3 more years. [...]
--- OUTSIDE RECORDS SUMMARY | ~2019-04-30 | XMS | Encounter Summary ---
Demographics + + + | Address | GENERAL DELIVERY | | | [place] [address] | + + + | Home Phone [...] Team Providers + +------+ + | Care Safe Expert Name | Role | Phone | [...] | | | | Mailcode: CH10U | [place], [place] | | | | | [facility] | [address] | | | | | and Healing, | [phone] | | | | | | | | | | | Floor [place], [place] | | | | | | [address] | | | | | | [phone] | | | +--------+ + + + [...]
--- OUTSIDE RECORDS SUMMARY | ~2019-04-30 | XMS | Encounter Summary ---
Demographics + + + | Address | GENERAL DELIVERY | | | [place] [address] | + + + | Home Phone [...] + + + | Author | [facility] | + + + | Organization | [facility] | + + + | Address | Unknown | + + + | Phone | Unavailable | + + + Support + + +---------+ + | Name | Relationship | Address | Phone | + + +---------+ + | Per None, PT | ECON | Unknown | Unavailable | + + +---------+ + Care Team Providers + +------+ + | Care Fruit Grading Supervisor Name | Role | Phone | [...] Lab Order | | 2014 | | [place] at [facility] [address] | [address] | | | | | [address] | [facility] [place] | | | | | Mailcode: OC8D | [address] | | | | | [facility] | [phone] | | | | | and Healing, | | | | | | [address] | | | | | | [place], [place] | | | | | | [address] | | | | | | [phone] | | | +--------+ + + + [...]
--- OUTSIDE RECORDS SUMMARY | ~2019-04-30 | XMS | Encounter Summary ---
Demographics + + + | Address | GENERAL DELIVERY | | | [place] [address] | + + + | Home Phone [...] Team Providers + +------+ + | Care Home Health Travel Pt Name | Role | Phone | + [...] | | | | Mailcode: CH10U | [place], [place] | | | | | [facility] | [address] | | | | | and Healing, | [phone] | | | | | [facility] | | | | | | Floor [place], [place] | | | | | | [address] | | | | | | [phone] | | | +--------+ + + + [...]
--- OUTSIDE RECORDS SUMMARY | ~2019-04-30 | XMS | Encounter Summary ---
Demographics + + + | Address | GENERAL DELIVERY | | | [place] [address] | + + + | Home Phone [...] Team Providers + +------+ + | Care Passport Application Examiner Name | Role | Phone | + +------+ + PCP | Unavailable | + +------+ + Encounter Details +--------+------+ + + + | Date | Type | Department | Care Team | Description | +--------+------+ + + + | 12/23/ | Lab | Laboratory at [facility] | | RUQ Abdominal Pain; | | 2007 | | [address] | | Chronic Hepatitis C | | | | [place], [place] | | without Mention of | | | | [address] | | Hepatic Coma | | | | [phone] | | | +--------+------+ + + + [...] | + + + + + | [facility] | [address] | [place] [address] | | | PATHOLOGY | [address] | | | + + + + + | [facility] | [facility] [address] | [place] [address] | | | PATHOLOGY | [address] [...] [facility] DEPARTMENT OF | [address] [facility] | [facility] [place] [address] | | | PATHOLOGY | [address] | | | + + + + + | [place] DEPARTMENT OF | [address] [facility] | [place] [address] | | | PATHOLOGY | [address] [...] | + + + + + | [facility] | [address] [facility] [address] [facility] | [place] [address] | | | PATHOLOGY | [address] | | | + + + + + | [facility] OF | [address] [facility] [address] [facility] | [place] [address] | | | PATHOLOGY | [address] [...] Performed At | + + + | [id number] Estimated GFR > 60 mL/min/1.73 sq m if non- | [facility] | | [place] [id number] Estimated GFR > 60 mL/min/1.73 sq m if | DEPARTMENT OF | | [place] GFR is estimated using the MDRD equation [...] | + + + + + | [facility] | [address] [facility] | [place] [address] | | | PATHOLOGY | [address] | | | + + + + + | [facility] | [address] | [place] [address] | | | PATHOLOGY | [address] | | | + + + + + documented in this encounter Visit Diagnoses + + | Diagnosis | + + | RUQ abdominal pain Abdominal pain, right upper quadrant | + + | Chronic hepatitis C without mention of hepatic coma | + + documented in this encounter"
--- OUTSIDE RECORDS SUMMARY | ~2019-04-30 | XMS | Encounter Summary ---
Demographics + + + | Address | GENERAL DELIVERY | | | [place] [address] | + + + | Home Phone [...] Team Providers + +------+ + | Care Security Operations Analyst Name | Role | Phone [...] | | | | Mailcode: CH10U | [place], [place] | | | | | [facility] | [address] | | | | | and Healing, | [phone] | | | | | [facility] | | | | | | Floor [place], [place] | | | | | | [address] | | | | | | [phone] | | | +--------+ + + + [...]
--- OUTSIDE RECORDS SUMMARY | ~2019-04-30 | XMS | Encounter Summary ---
Demographics + + + | Address | GENERAL DELIVERY | | | [place] [address] | + + + | Home Phone [...] Team Providers + +------+ + | Care Qa Manager Name | Role | Phone | [...] | | | Ave Mailcode: CH6D | [place], [place] | | | | | [facility] | [address] | | | | | and Healing, | [phone] | | | | | [facility] | | | | | | Floor [place], [place] | | | | | | [address] | | | | | | [phone] | | | +--------+ + + + [...]
--- OUTSIDE RECORDS SUMMARY | ~2019-04-30 | XMS | Encounter Summary ---
Demographics + + + | Address | GENERAL DELIVERY | | | [place] [address] | + + + | Home Phone [...] + + + | Author | [facility] | + + + | Organization | [facility] | + + + | Address | Unknown | + + + | Phone | Unavailable | + + + Support + + +---------+ + | Name | Relationship | Address | Phone | + + +---------+ + | Per None, PT | ECON | Unknown | Unavailable | + + +---------+ + Care Team Providers + +------+ + | Care Coat Padder Name | Role | Phone | + [...] Abdominal pain | | 2008 | | [place] [address] [address] | [address] | | | | | [address] | [place], [place] | | | | | Mailcode: OC8D | [address] | | | | | [facility] | [phone] | | | | | and [place], | | | | | | [address] | | | | | | [place], [place] | | | | | | [address] | | | | | | [phone] | | | +--------+ + + + [...]
--- OUTSIDE RECORDS SUMMARY | ~2019-04-30 | XMS | Encounter Summary ---
Demographics + + + | Address | GENERAL DELIVERY | | | [place] [address] | + + + | Home Phone [...] Team Providers + +------+ + | Care Primary Clinician Name | Role | Phone | + [...] abd u/s | | 2007 | | [place] at [facility] [address] | [address] | order faxed/mailed) | | | | [address] | [place], [place] | | | | | Mailcode: [id number] | [address] | | | | | [facility] | [phone] | | | | | and [place], | | | | | | [address] | | | | | | [place], [place] | | | | | | [address] | | | | | | [phone] | | | +--------+ + + + [...]
--- OUTSIDE RECORDS SUMMARY | ~2019-04-30 | XMS | Encounter Summary ---
Demographics + + + | Address | GENERAL DELIVERY | | | [place] [address] | + + + | Home Phone [...] Providers + +------+ + | Care Supervisor Computer Operations Name | Role | Phone | + [...] | | | | Mailcode: CH10U | [place], [place] | | | | | [facility] | [address] | | | | | and [place], | [phone] | | | | | [facility] | | | | | | Floor [place], [place] | | | | | | [address] | | | | | | [phone] | | | +--------+ + + + [...]
--- OUTSIDE RECORDS SUMMARY | ~2019-04-30 | XMS | Encounter Summary ---
Demographics + + + | Address | GENERAL DELIVERY | | | [place] [address] | + + + | Home Phone [...] Team Providers + +------+ + | Care Furnace Repairer Helper Name | Role | Phone | + +------+ + | Etienne Barnes PA-C | PCP | | + +------+ + Encounter Details +--------+ + + + + | Date | Type | Department | Care Team | Description | +--------+ + + + + | 06/15/ | Document-Sc | UNKNOWN DEPARTMENT | Unknown . | | | 2014 | anned | [address] [facility] | | | | | | [address] | | | | | | [place], [place] | | | | | | [address] | | | +--------+ + + + [...]
--- OUTSIDE RECORDS SUMMARY | ~2019-04-30 | XMS | Clinical Summary ---
Demographics + + + | Address | [address] | | | [place] [address] | + + + | Home Phone | | + + + | Preferred Language | Unknown | + + + | Marital Status | | + + + | Yarsani Affiliation | Unknown | + + + | Race | Unknown | + + + | Ethnic Group | Unknown | + + + Author + + + | Author | [facility] (Historical as of | | | 01-01-19) | + + + | Organization | [facility] (Historical as of | | | 01-01-19) [...] Providers + +------+ + | Care Steam Box Operator Name | Role | Phone | [...]
--- OUTSIDE RECORDS SUMMARY | ~2019-04-30 | XMS | Encounter Summary ---
Demographics + + + | Address | GENERAL DELIVERY | | | [place] [address] | + + + | Home Phone [...] Team Providers + +------+ + | Care Kerrick Kleaner Operator Name | Role | Phone | [...] | | | | Mailcode: CH10U | [place], [place] | | | | | [facility] | [address] | | | | | and [place], | [phone] | | | | | [facility] | | | | | | Floor [place], [place] | | | | | | [address] | | | | | | [phone] | | | +--------+ + + + [...]
--- OUTSIDE RECORDS SUMMARY | ~2019-04-30 | XMS | Encounter Summary ---
Demographics + + + | Address | GENERAL DELIVERY | | | [place] [address] | + + + | Home Phone [...] Team Providers + +------+ + | Care Switch Cleaner Name | Role | Phone | [...] PPV | | | | | | [address] | | | | | | Loop Mailcode: | | | | | | [address] Physician's | | | | | | [facility] | | | | | | [place] [address] | | | | | | [phone] | | | +--------+ + + + [...] | | + +---------+ + + | [facility] DEPARTMENT | | | | | RADIOLOGY | | | | + +---------+ + + documented in this encounter Visit Diagnoses Not on filedocumented in this encounter"
--- OUTSIDE RECORDS SUMMARY | ~2019-04-30 | XMS | Encounter Summary ---
Demographics + + + | Address | GENERAL DELIVERY | | | [place] [address] | + + + | Home Phone [...] Team Providers + +------+ + | Care Drier Belt Conveyor Name | Role | Phone | + [...] Required | | hepatitis C | [address] | [address] | | | | | without | [address] | Ave | | | | | mention of | [place], | [place], [place] | | | | | hepatic coma | [place] [address] | [address] | | | | | Procedures | Phone: | Phone: | | | | | CONSULT TO | [phone] | [phone] | | | | | HEPATOLOGY | Fax: | Fax: | | | | | | [phone] | [phone] | +--------+ + + + + + Encounter Details +--------+---------+ + + + | Date | Type | Department | Care Team | Description | +--------+---------+ + + + | 01/25/ | Office | Digestive Health | Jeancarlos Rich MD | Chronic hepatitis C | | 2011 | Visit | Center at [facility] [address] | [address] | without mention of | | | | [address] | [place], [place] | hepatic coma | | | | Mailcode: OC8D | [address] | (Primary Dx) | | | | [facility] | [phone] | | | | | and Healing, | | | | | | [address] | | | | | | [place], [place] | | | | | | [address] | | | | | | [phone] | | | +--------+---------+ + + + [...] infected in 2002 1.4)Obese 1.5) committed to [facility] in [place] until 2014 1.6 ) no liver biopsy to date 1.7) vaccinated for HAV/HBV in the past PAST MEDICAL HISTORY 2) HTN 3) Schizophrenia and anxiety:now committed to count includes the [facility] 4) obesity Current [...] interim he has been committed to the [facility] facility. At this time he has no clinical evidence of cirrhosis. Unfortunat birgit the current HCV treatment regimen still includes interferon, which will exacerbate any u nderlying psychiatric issues. Unless he can be safely watched and protected in the [facility], there will not be a way to use interferon-based therapy. It would be unreasonable to consider a liver biopsy (can be done in [place] thru radiology, ie ultrasound guided) to asses s degree of liver fibrosis, before even contemplating any therapy. Recommend thru Drs. Robin/Mike patients get the followin. CMP, CBC, plts, diff, INR 2. Decide if patient can be treated safely in [facility] with interferon regimen. If possible, would recommend liver biopsy (in [place]) and then will results in hand return [facility]. 3) If interferon-based therapy is deemed [...]
--- OUTSIDE RECORDS SUMMARY | ~2019-04-30 | XMS | Encounter Summary ---
Demographics + + + | Address | GENERAL DELIVERY | | | [place] [address] | + + + | Home Phone [...] Team Providers + +------+ + | Care Science Teacher Name | Role | Phone [...] + + | 06/13/ | Telephone | [facility] | Jeancarlos Marley MD | Pain | | 2014 | | [place] [address] [address] | [address] | | | | | [address] | [place], [place] | | | | | Mailcode: OC8D | [address] | | | | | [facility] | [phone] | | | | | and Healing, | | | | | | [address] | | | | | | [place], [place] | | | | | | [address] | | | | | | [phone] | | | +--------+ + + + [...]
--- OUTSIDE RECORDS SUMMARY | ~2019-04-30 | XMS | Clinical Summary ---
Demographics + + + | Address | [address] | | | [place] [address] | + + + | Home Phone | | + + + | Preferred Language | Unknown | + + + | Marital Status | | + + + | Adventism Affiliation | Unknown | + + + | Race | Unknown | + + + | Ethnic Group | Unknown | + + + Author + + + | Author | [facility] (Historical as of | | | 01-01-19) | + + + | Organization | [facility] (Historical as of | | | 01-01-19) [...] Team Providers + +------+ + | Care Paleontological Helper Name | Role | Phone | [...]
--- OUTSIDE RECORDS SUMMARY | ~2019-04-30 | XMS | Encounter Summary ---
Demographics + + + | Address | GENERAL DELIVERY | | | [place] [address] | + + + | Home Phone [...] Team Providers + +------+ + | Care Autoclave Operator Name | Role | Phone | [...] | abdominal | [address] | [address] | | | | | pain | [facility] | Ave | | | | | Neurogenic | Rd | [facility] [place] | | | | | bladder | [facility] [place] | [address] | | | | | Procedures | [address] | Phone: | | | | | CONSULT TO | Phone: | [phone] | | | | | UROLOGY | [phone] | Fax: | | | | | | Fax: | [phone] | | | | | | [phone] | | +--------+--------+ + + + + Reason for Visit + + + | Reason | Comments | + + + | Catheter Problem | | + + + Encounter Details +--------+ + + + + | Date | Type | Department | Care Team | Description | +--------+ + + + + | 02/22/ | Emergency | [facility] Emergency | Fe Walter, | | | 2017 - | | Department [address] | Edith Kelley MD [address] | | | | | [facility] | [facility] | | | 02/23/ | | [facility] | [address], [place] | | | 2017 | | [place], [place] | [address] | | | | | [address] | | | | | | [phone] | | | +--------+ + + + [...] for coming to the Emergency Department at [facility] for your care. You were [...] other well. -Be careful about taking other eczp-gjz-ffwahnu medicines, which may contain acetaminophen or ibuprofen and could lead to toxicity. -If you have liver disease, kidney disease or stomach ulcers, the standard doses of these m edicines may be too high for you. -We expect that your pain will improve over the next few days, and do not expect that you w ill need to continue these medicines detention. You should talk to your primary care [...] your primary care doctor for follow-up and onwalden behavioral care care. Care delivered in the Emergency Department should not be considered as a substitute for women's and children's hospital care and/or specialist care for ongoing medical issues, and it is important that you fo llow up as described above. Thank you for letting us care for you at the [facility] Emergency Department today. Note: If [...] MARQUAM | [address] | [place], [place] | | | [facility] POINT OF CARE | [address] | [address] | | | TESTS | | | [...] [facility] | [address] | [place] [address] | | | SERVICES, CORE | [address] [...] [facility] | [address] | [place] [address] | | | NANCY MAX | DAHIANA [...] + | DIAL - AIRPORT - | [address] | [place] [address] | | | [place] | | | | + + + [...] [facility] | [address] | [place] [address] | | | NANCY MAX | DAHIANA [...] | + + + + + | [facility] | [address] | [place] [address] | | | NANCY MAX | DAHIANA [...] | + + + + + | [employer] | [address] | [place] [address] | | | MANSOOR, NANCY | DAHIANA [...] | + + + + + | [facility] | [address] | [place] [address] | | | SERVICES, CORE | DAHIANA [...] [facility] | [address] | [place] [address] | | | SERVICES, CORE | DAHIANA [...] | + + + + + | [employer] | [address] [facility] | [place] [address] | | | SERVICES, | [address] | | | | TRANSFUSION MEDICINE | | | | + + + + + ED INFORMATION EXCHANGE (02/22/2017 8:33 PM PDT) + + | Specimen | + + | | + + + + + | Narrative | Performed At | + + + | [id number] This patient has registered at the | [facility] | | [facility] Emergency Department For more | MEDICAL | | information visit: | TECHNOLOGIES | | [email or web address] | | | [id number] ED Care Guidelines from [facility] Last | | | Updated: 12/03/16 2:35 PM Care Coordination: ENCOURAGE PATIENT | | | TO USE PCP FOR FOLLOW UP AND NON-EMERGENT PROBLEMS. GIVE PATIENT THIS | | | STEAMBLASTER NAME AND NUMBER FOR HELP AND QUESTIONS. MARSHALL AMADOR ED | | | GAME PROTECTOR [facility] [phone] These are guidelines | | | and the provider should exercise clinical judgment when providing | | | care. Care History Behavioral 12/03/16 12:00 AM [facility] | | | Hospital PT [facility] -- ATTN:IVONNE | | | [place] Medical/Surgical 11/03/14 12:00 AM [place]n [place] [facility] | | | Hospital Smoker Methamphetamine abuse Recent Emergency | | | Department Visit Summary Admit Date Facility City State Type Major | | | Type Diagnoses or Chief Complaint Feb [facility], 2017 [facility] | | [facility] [place] Emergency Emergency 10,800. | | | Cath issue Feb 20, [address] [place]. [place] | | | Emergency Emergency dizzy Generalized Body Aches | | | Neuromuscular dysfunction of bladder, unspecified Feb 18, 2017 [facility] | | | [place] Emergency Emergency Other stimulant | | | abuse, uncomplicated Other detention (current) drug therapy | | | Nicotine [...] unspecified Feb 16, 2017 | | | [facility] [place] Emergency Emergency Chief Complaint: | | | Urinary Problem Feb 03, 2017 [facility] | | | [place] Emergency Emergency Chief Complaint: URO MALE Jan | | | 2016 [facility] [place] Emergency | | | Emergency Bipolar disorder, unspecified Nicotine | | | dependence, cigarettes, uncomplicated Other stimulant | | | dependence, uncomplicated Dec 30, 2016 [facility] | | | [place]. [place] Emergency Emergency catheter issues Urinary | | | Catheter Insertion Other urethritis Retention of urine, | | | unspecified Other stimulant abuse, uncomplicated Dec 03, | | | 2016 [facility] [place] Emergency Emergency Bipolar | | | disorder, unspecified Schizoaffective disorder, unspecified | | | Other detention (current) drug therapy Nicotine dependence, | | | unspecified, uncomplicated Anxiety disorder, unspecified | | | Allergy status to other antibiotic agents status Allergy status | | | to other drugs, medicaments and biological substances status | | | Other fatigue Delusional disorders Essential (primary) | | | hypertension Nov 24, 2016 [facility] [place] Emergency | | | Emergency Encounter for other general examination | | | Allergy status to other drugs, medicaments and biological substances | | | status Bipolar disorder, unspecified Other joint terminal attack controller | | | (current) drug therapy Major depressive disorder, single | | | episode, unspecified Essential (primary) hypertension | | | Recent Inpatient Visit Summary No recorded inpatient visits. | | | E.D. Visit Count (12 mo.) Facility Visits [facility] | | | System 2 [facility] [place] [address] [facility] | | | Center 1 [facility] 1 [facility] | | | Center 2 [facility] ED 1 [facility] 15 | | | Total 23 Note: Visits indicate total known visits. Care | | | Providers Provider PRC Type Phone Fax Service Dates Fam Donnelly, | | | MD TORI Primary Care Current [facility] | | | MENTAL HEALTH, Mental Health Provider ([id number]) | | | [phone] Nov 15, 2016 - Current Summer PAULINA Norman Case or Care | | | Pheresis Specialist Current The above | | | [...] | | facilities for additional information. 2017 [employer] | | | [employer] - [place], [place] - | | | [email or web address] | | + + + + + | Procedure Note | + + | Service Account, Rtf Results Inbound - 02/22/2017 8:34 PM PDT Formatting of this | | note might be different from the original.NIRANJAN?NOTIFICATION?02/22/2017 20:33?ROMERO, | | AALIYAH? patient has registered at the [facility] | | [place] Emergency Department For more information visit: | | [email or web address] ED Care | | Guidelines from [facility] Updated: 12/03/16 2:35 PM Care | | Coordination:ENCOURAGE PATIENT TO USE PCP FOR FOLLOW UP AND NON-EMERGENT PROBLEMS.GIVE | | PATIENT THIS STEAMBLASTER NAME AND NUMBER FOR HELP AND QUESTIONS.MARSHALL AMADORED CASE | | SENIOR CONTROLS TECHNICIAN [id number] are guidelines and the provider should | | exercise clinical judgment when providing care.Care HistoryBehavioral12/03/16 12:00 AM | | [facility] -- ATTN:? IVONNE | | [place]Medical/Surgical11/03/14 12:00 AM [facility] | | HospitalSmokerMethamphetamine abuseRecent Emergency Department Visit SummaryAdmit Date | | Facility City State Type Major Type Diagnoses or Chief Complaint Feb 22, 2017 [place] | | [facility] [place] Emergency Emergency 10,800. Cath issue Feb | | 2016 [place] Emergency Emergency dizzy Generalized | | Body Aches Neuromuscular dysfunction of bladder, unspecified Feb 18, [address] | | [place] Emergency Emergency Other stimulant abuse, uncomplicated | | Other detention (current) drug therapy Nicotine dependence, unspecified, | [...] Complaint: Urinary Problem Sep | | 2016 [facility] [place] Emergency Emergency Chief | | Complaint: URO MALE Jan 25, 2017 [facility] [place] Emergency | | Emergency Bipolar disorder, unspecified Nicotine dependence, cigarettes, | | uncomplicated Other stimulant dependence, uncomplicated Dec 30, 2016 [facility] Michelle | | [place]. [place] Emergency Emergency catheter issues Urinary Catheter | | Insertion Other urethritis Retention of urine, unspecified Other stimulant | | abuse, uncomplicated Dec 03, 2016 [facility] [place] Emergency Emergency | | [...] hypertension Nov 24, 2016 [facility] | | [place] Emergency Emergency Encounter for other general examination | | Allergy status to other drugs, medicaments and biological substances status | | Bipolar disorder, unspecified Other joint terminal attack controller (current) drug therapy Major | | depressive disorder, single episode, unspecified Essential (primary) hypertension | | Recent Inpatient Visit SummaryNo recorded inpatient visits. E.D. Visit Count (12 | | mo.)Facility Visits [facility] 2 [facility] | | [address] 1 [facility] 1 [facility] | | Medical [place] 2 [facility] 1 [facility] 15 Total 23 Note: | | Visits indicate total known visits. Care ProvidersProvider PRC Type Phone Fax Service | | Dates Fam Donnelly MD, Primary Care Current [facility] | | MENTAL HEALTH, Mental Health Provider Nov 15, 2016 - | | Current Summer PAULINA Norman Case or Long Lines Operator Current | | The above information is provided for the sole purpose of patient treatment. Use of this | | information beyond the terms of Data Sharing Memorandum of Understanding and License | | Agreement is prohibited. In certain cases not all visits may be represented. Consult the | | aforementioned facilities for additional information. ? 2017 [employer] | | [employer] - [place], [place] - [email or web address] | | Nicotine dependence, cigarettes, uncomplicated | | Other stimulant dependence, uncomplicated | | | |Dec 30, 2016 [facility] [place]. [place] Emergency Emergency | | catheter issues | | Urinary Catheter Insertion | | Other urethritis | | Retention of urine, unspecified | | Other stimulant abuse, uncomplicated | | | |Dec 03[facility] [place] [place] [facility] Emergency | | Bipolar disorder, unspecified | | Schizoaffective disorder, unspecified | | Other detention (current) drug therapy | | Nicotine dependence, unspecified, uncomplicated | | Anxiety disorder, unspecified | | Allergy status to other antibiotic agents status | | Allergy status to other drugs, medicaments and biological substances status | | Other fatigue | | Delusional disorders | | Essential (primary) hypertension | | | |Nov 24, 2016 [facility] [place] Emergency Emergency | | Encounter for other general examination | | Allergy status to other drugs, medicaments and biological substances status | | Bipolar disorder, unspecified | | Other joint terminal attack controller (current) drug therapy | | Major depressive disorder, single episode, unspecified | | Essential (primary) hypertension | | | | | | | |Recent Inpatient Visit Summary | |No recorded inpatient visits. | | | |E.D. Visit Count (12 mo.) | |Facility Visits | |[facility] 2 | |[facility] 1 | |[facility] 1 | |[facility] 1 | |[facility] 2 | |[facility] ED 1 | |[facility] 15 | |Total 23 | |Note: Visits indicate total known visits. | | | |Care Providers | |Provider PRC Type Phone Fax Service Dates | |Fam Donnelly MD, MD Primary Care Current | |[facility] Provider Nov 15, 2016 - Current | |PAULINA Orellana Case or Long Lines Operator Current | | | |The above information is provided for the sole purpose of patient treatment. Use of this in formation beyond the terms of Data Sharing Memorandum of Understanding and License Agreement is prohibited. In | |certain cases not all visits may be represented. Consult the aforementioned facilities for additional information. | |? 2017 [employer] - [place], [place] - | + + + + + + + | Performing | Address | City/State/Zipcode | Phone Number | | Organization | | | | + + + + + | [facility] | [address], | [place], [place] | [phone] | | [employer] | [address] | [address] | | + + + + + [...]
--- OUTSIDE RECORDS SUMMARY | ~2019-04-30 | XMS | Clinical Summary ---
Demographics + + + | Address | GENERAL DELIVERY | | | [place] [address] | + + + | Home Phone [...] Author + + + | Author | [facility] | + + + | Organization | [facility] | + + [...] Team Providers + +------+ + | Care Welt Beater Name | Role | Phone | + +------+ + | Fam Donnelly MD | PCP | | + +------+ + Source Comments GUSTAVO is fully live on both [facility] and [facility] InPatient.[facility] Allergies + + + + + + [...] | | | + +--------+ +--------+-------+---------+--------+ | [employer] MEDICA[employer] | WOOD SCRAP HANDLER | xxxxxxxx | 05/22/19 | | | [...] | 1980 | [phone] | [place] [address] | | | linda | | | 3 (Home) | | + +--------+ +--------+ + + | Peng Richardson | Agency | Self | 09/20/ | | GENERAL DELIVERY | | | | | 1980 | [phone] | [place] [address] | | | | | | 3 (Home) | | + +--------+ +--------+ + + Advance Directives + + + + + | Type | Date Recorded | Patient | Explanation | | | | Senior Ecologist | | + + + + + | Advance | | | | | Directives and | | | | | Living Will | | | | + + + + + | Power of | | | | | Cna Instructor | | | | + + + + +
--- OUTSIDE RECORDS SUMMARY | ~2019-04-30 | XMS | Encounter Summary ---
Demographics + + + | Address | GENERAL DELIVERY | | | [place] [address] | + + + | Home Phone [...] Providers + +------+ + | Care Public Aid Eligibility Assistant Name | Role | Phone | + +------+ + | Lakesha River | PCP | | + +------+ + Encounter Details +--------+ + + + + | Date | Type | Department | Care Team | Description | +--------+ + + + + | 08/11/ | Telephone | Digestive Health | Jenacarlos Marley MD | | | 2008 | | Center at [facility] [address] | [address] | | | | | [address] | [place], [place] | | | | | Mailcode: Center | [address] | | | | | for Health and | [phone] | | | | | [facility] [address] | | | | | | [place], [place] | | | | | | [address] | | | | | | [phone] | | | +--------+ + + + [...] | [facility] | [address] | [place] [address] | | | PATHOLOGY | [address] | | | + + + + + | [facility] | [address] | [place] [address] | | | PATHOLOGY | [address] [...] | [facility] | [address] | [place] [address] | | | PATHOLOGY | [address] | | | + + + + + | [facility] | [address] | [place] [address] | | | PATHOLOGY | [address] [...] Performed At | + + + | [id number] Estimated GFR > 60 mL/min/1.73 sq m if non- | [facility] | | R[place]an [id number] Estimated GFR > 60 mL/min/1.73 sq m if | DEPARTMENT OF | | Rwandan GFR is estimated using the MDRD equation [...] | + + + + + | [facility] DEPARTMENT | [address] | [place] [address] | | | PATHOLOGY | [address] | | | + + + + + | [facility] | [address] | [place] [address] | | | PATHOLOGY | [address] | | | + + + + + documented in this encounter Visit Diagnoses + + | Diagnosis | + + | Chronic hepatitis C without mention of hepatic coma - Primary | + + documented in this encounter"
--- OUTSIDE RECORDS SUMMARY | ~2019-04-30 | XMS | Encounter Summary ---
Demographics + + + | Address | GENERAL DELIVERY | | | [place] [address] | + + + | Home Phone [...] Team Providers + +------+ + | Care Geothermal Powerplant Supervisor Name | Role | Phone | [...] | | hepatitis C | [address] | [address] | | | | | without | [address] | Ave | | | | | mention of | [place], | [place], [place] | | | | | hepatic coma | [place] [address] | [address] | | | | | Procedures | Phone: | Phone: | | | | | CONSULT TO | [phone] | [phone] | | | | | HEPATOLOGY | Fax: | Fax: | | | | | | [phone] | [phone] | +--------+ + + + + + Encounter Details +--------+---------+ + + + | Date | Type | Department | Care Team | Description | +--------+---------+ + + + | 01/25/ | Office | Digestive Health | Jeancarlos Rich MD | Chronic hepatitis C | | 2011 | Visit | Center at [facility] [address] | [address] | without mention of | | | | [address] | [place], [place] | hepatic coma | | | | Mailcode: OC8D | [address] | (Primary Dx) | | | | [place] [facility] | [phone] | | | | | and Healing, | | | | | | Building [address] | | | | | | [place], [place] | | | | | | [address] | | | | | | [phone] | | | +--------+---------+ + + + [...] infected in 2002 1.4)Obese 1.5) committed to [facility] in [place] until 2014 1.6 ) no liver biopsy to date 1.7) vaccinated for HAV/HBV in the past PAST MEDICAL HISTORY 2) HTN 3) Schizophrenia and anxiety:[facility] 4) obesity Current [...] interim he has been committed to the [facility] facility. At this time he has no clinical evidence of cirrhosis. Unfortunat birgit the current HCV treatment regimen still includes interferon, which will exacerbate any u nderlying psychiatric issues. Unless he can be safely watched and protected in the [facility], there will not be a way to use interferon-based therapy. It would be unreasonable to consider a liver biopsy (can be done in [place] thru radiology, ie ultrasound guided) to asses s degree of liver fibrosis, before even contemplating any therapy. Recommend thru Drs. Robin/Mike patients get the followin. CMP, CBC, plts, diff, INR 2. Decide if patient can be treated safely in [facility] with interferon regimen. If possible, would recommend liver biopsy (in [place]) and then will results in hand return to s [facility]. 3) If interferon-based therapy is deemed [...]
--- OUTSIDE RECORDS SUMMARY | ~2019-04-30 | XMS | Encounter Summary ---
Demographics + + + | Address | GENERAL DELIVERY | | | [place] [address] | + + + | Home Phone [...] Team Providers + +------+ + | Care Assistance Coordinator Name | Role | Phone | [...] Lab Order | | 2014 | | [place] at [facility] [address] | [address] | | | | | [address] | [facility] [place] | | | | | Mailcode: OC8D | [address] | | | | | [facility] | [phone] | | | | | and Healing, | | | | | | [address] | | | | | | [place], [place] | | | | | | [address] | | | | | | [phone] | | | +--------+ + + + [...]
--- OUTSIDE RECORDS SUMMARY | ~2019-04-30 | XMS | Encounter Summary ---
Demographics + + + | Address | GENERAL DELIVERY | | | [place] [address] | + + + | Home Phone [...] Team Providers + +------+ + | Care Instructor Ballroom Dancing Name | Role | Phone | + [...] Abdominal pain | | 2007 | | [place] [address] [address] | [address] | (liver pain) | | | | [address] | [place], [place] | | | | | Mailcode: OC8D | [address] | | | | | [place] [facility] | [phone] | | | | | and Healing, | | | | | | Building [address] | | | | | | [place], [place] | | | | | | [address] | | | | | | [phone] | | | +--------+ + + + [...] | + + + + + | [facility] DEPARTMENT OF | [address] | [place] [address] | | | PATHOLOGY | [address] | | | + + + + + | [facility] DEPARTMENT OF | [address] | [place] [address] | | | PATHOLOGY | [address] [...] + + | [facility] | [address] | [place] [address] | | | PATHOLOGY | [address] | | | + + + + + | [facility] | [address] | [place] [address] | | | PATHOLOGY | [address] [...] Performed At | + + + | [id number] Estimated GFR > 60 mL/min/1.73 sq m if non- | [facility] | | [place] 039319 Estimated GFR > 60 mL/min/1.73 sq m if | DEPARTMENT OF | | [place] GFR is estimated using the MDRD equation [...] + + | [facility] | [address] | [place] [address] | | | PATHOLOGY | [address] | | | + + + + + | [facility] | [address] | [place] [address] | | | PATHOLOGY | [address] [...] spleen | | | | | | .5 cm in | | | | | [...] | | + +---------+ + + | [facility] DEPARTMENT OF | | | | [...]
--- OUTSIDE RECORDS SUMMARY | ~2019-04-30 | XMS | Encounter Summary ---
Demographics + + + | Address | GENERAL DELIVERY | | | [place] [address] | + + + | Home Phone [...] Team Providers + +------+ + | Care Shoe Salesman Name | Role | Phone | + +------+ + | Lakesha River | PCP | | + +------+ + Encounter Details +--------+ + + + + | Date | Type | Department | Care Team | Description | +--------+ + + + + | 02/27/ | Telephone | [facility] | Jeancarlos Marley MD | | | 2007 | | [place] [address] [address] | [address] | | | | | [address] | [place], [place] | | | | | Mailcode: OC8D | [address] | | | | | [facility] | [phone] | | | | | and Healing, | | | | | | [address] | | | | | | [place], [place] | | | | | | [address] | | | | | | [phone] | | | +--------+ + + + [...]
--- OUTSIDE RECORDS SUMMARY | ~2019-04-30 | XMS | Encounter Summary ---
Demographics + + + | Address | GENERAL DELIVERY | | | [place] [address] | + + + | Home Phone [...] Team Providers + +------+ + | Care Cinder Pitman Name | Role | Phone | + +------+ + PCP | Unavailable | + +------+ + Encounter Details +--------+ + + + + | Date | Type | Department | Care Team | Description | +--------+ + + + + | 06/14/ | Document-Sc | Digestive Health | Jeancarlos Marley MD | | | 2015 | anned | [place] [address] [address] | [address] | | | | | [address] | [place], [place] | | | | | Mailcode: OC8D | [address] | | | | | [facility] | [phone] | | | | | and Healing, | | | | | | Building [address] | | | | | | [place], [place] | | | | | | [address] | | | | | | [phone] | | | +--------+ + + + [...]
--- OUTSIDE RECORDS SUMMARY | ~2019-04-30 | XMS | Encounter Summary ---
Demographics + + + | Address | GENERAL DELIVERY | | | [place] [address] | + + + | Home Phone [...] Team Providers + +------+ + | Care Card Painter Name | Role | Phone | [...] | | | | Mailcode: CH10U | [place], [place] | | | | | [facility] | [address] | | | | | and [place], | [phone] | | | | | [facility] | | | | | | Floor [place], [place] | | | | | | [address] | | | | | | [phone] | | | +--------+ + + + [...]
--- OUTSIDE RECORDS SUMMARY | ~2019-04-30 | XMS | Encounter Summary ---
Demographics + + + | Address | GENERAL DELIVERY | | | [place] [address] | + + + | Home Phone [...] Team Providers + +------+ + | Care House Nurse Name | Role | Phone | [...] | | | PROVIDER PER | CH[address] [place] | | | | | | PT | for Health | | | | | | | and Healing, | | | | | | | Building 1, | | | | | | | 10th Floor | | | | | | | [place], [place] | | | | | | | [address] | | | | | | | Phone: | | | | | | | [phone] | | | | | | | Fax: | | | | | | | [phone] | +--------+--------+ + + + + Encounter [...] | | | | Mailcode: CH10U | [facility] [place] | | | | | [facility] | [address] | | | | | and Healing, | [phone] | | | | | [facility] | | | | | | Floor [place], [place] | | | | | | [address] | | | | | | [phone] | | | +--------+---------+ + + + [...] PDT12 days s/p open suprapubic cystostomy for 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 Has had ER visits [...] out of wound for easy remov al/change [place] [facility] present and packing reviewed. A/P: Wound [...]
--- OUTSIDE RECORDS SUMMARY | ~2019-04-30 | XMS | Encounter Summary ---
Demographics + + + | Address | GENERAL DELIVERY | | | [place] [address] | + + + | Home Phone [...] Team Providers + +------+ + | Care Rfid Strategist Name | Role | Phone | + +------+ + PCP | Unavailable | + +------+ + Encounter Details +--------+ + + + + | Date | Type | Department | Care Team | Description | +--------+ + + + + | 06/15/ | Document-Sc | Digestive Health | Jeancarlos Marley MD | | | 2015 | anned | [place] [address] [address] | [address] | | | | | [address] | [place], [place] | | | | | Mailcode: OC8D | [address] | | | | | [facility] | [phone] | | | | | and Healing, | | | | | | Building [address] | | | | | | [place], [place] | | | | | | [address] | | | | | | [phone] | | | +--------+ + + + [...]
--- OUTSIDE RECORDS SUMMARY | ~2019-04-30 | XMS | Encounter Summary ---
Demographics + + + | Address | GENERAL DELIVERY | | | [place] [address] | + + + | Home Phone [...] Providers + +------+ + | Care Car Mover Name | Role | Phone | + [...] | | 2007 | | Center at [facility] [address] | [address] | your call.) | | | | [address] | [place], [place] | | | | | Mailcode: OC8D | [address] | | | | | [place] [facility] | [phone] | | | | | and Healing, | | | | | | Building [address] | | | | | | [place], [place] | | | | | | [address] | | | | | | [phone] | | | +--------+ + + + [...]
--- OUTSIDE RECORDS SUMMARY | ~2019-04-30 | XMS | Encounter Summary ---
Demographics + + + | Address | GENERAL DELIVERY | | | [place] [address] | + + + | Home Phone [...] Team Providers + +------+ + | Care Planting Machine Crewman Name | Role | Phone | + [...] | | | | | [address] | [place], [place] | | | | | [facility] | [address] | | | | | (MNP/OLD [facility]) | [phone] | | | | | [place], [place] | | | | | | [address] | | | | | | [phone] | | | +--------+ + + + [...] Instructions Instructions Katie Kuo RN - 02/14/2011[facility] After Reyna Catheter & Leg [...] from 8:00 4:30, call the Urology Clinic [phone]. After hours, weekend and holidays call the Hospital Galvanometer Assembler at [phone]. Ask for them to page your doctor. Your doctor is RETURN APPOINTMENT Pre-Scheduled for March 31, 2011 @ 10:45 AM Call the Urology clinic to confirm this appointment . Urology Clinic [phone] Please call the clinic if you need [...]
--- OUTSIDE RECORDS SUMMARY | ~2019-04-30 | XMS | Encounter Summary ---
Demographics + + + | Address | GENERAL DELIVERY | | | [place] [address] | + + + | Home Phone [...] Team Providers + +------+ + | Care Curriculum Developer Name | Role | Phone | [...] Mention of | | | | at [facility] 3rd Floor | | Hepatic Coma | | | | [address] | | | | | | Loop [place], [place] | | | | | | [address] | | | | | | [phone] | | | +--------+------+ + + + [...] | [facility] | [address] | [place] [address] | | | PATHOLOGY | [address] | | | + + + + + | [facility] | [address] | [place] [address] | | | PATHOLOGY | [address] [...] | [facility] | [address] | [place] [address] | | | PATHOLOGY | [address] | | | + + + + + | [facility] DEPARTMENT OF | [address] | [place] [address] | | | PATHOLOGY | [address] [...] | [facility] | [address] | [place] [address] | | | PATHOLOGY | [address] | | | + + + + + | [facility] | [address] | [place] [address] | | | PATHOLOGY | [address] [...] Performed At | + + + | [id number] Estimated GFR > 60 mL/min/1.73 sq m if non- | [facility] | | [place]ian 918999 Estimated GFR > 60 mL/min/1.73 sq m if | DEPARTMENT OF | | [place]ian GFR is estimated using the MDRD equation [...] + + | [facility] DEPARTMENT | [address] | [place] [address] | | | PATHOLOGY | [address] | | | + + + + + | [facility] | [address] | [place] [address] | | | PATHOLOGY | [address] | | | + + + + + documented in this encounter Visit Diagnoses + + | Diagnosis | + + | Chronic hepatitis C without mention of hepatic coma | + + documented in this encounter"
--- OUTSIDE RECORDS SUMMARY | ~2019-04-30 | XMS | Encounter Summary ---
Demographics + + + | Address | GENERAL DELIVERY | | | [place] [address] | + + + | Home Phone [...] Team Providers + +------+ + | Care Educational Fundraising Director Name | Role | Phone | + +------+ + | Etienne Barnes PA-C | PCP | | + +------+ + Encounter Details +--------+ + + + + | Date | Type | Department | Care Team | Description | +--------+ + + + + | 09/14/ | Document-Sc | UNKNOWN DEPARTMENT | Unknown . | | | 2014 | anned | [address] [facility] | | | | | | [address] | | | | | | [place], [place] | | | | | | [address] | | | +--------+ + + + [...]
--- OUTSIDE RECORDS SUMMARY | ~2019-04-30 | XMS | Encounter Summary ---
Demographics + + + | Address | GENERAL DELIVERY | | | [place] [address] | + + + | Home Phone [...] Team Providers + +------+ + | Care Ultrasonic Welding Machine Operator Name | Role | Phone [...] | | 2007 | | Center at [facility] [address] | [address] | your call.) | | | | [address] | [place], [place] | | | | | Mailcode: OC8D | [address] | | | | | [place] [facility] | [phone] | | | | | and Healing, | | | | | | [address] | | | | | | [place], [place] | | | | | | [address] | | | | | | [phone] | | | +--------+ + + + [...]
--- OUTSIDE RECORDS SUMMARY | ~2019-04-30 | XMS | Encounter Summary ---
Demographics + + + | Address | GENERAL DELIVERY | | | [place] [address] | + + + | Home Phone [...] Team Providers + +------+ + | Care Performance Test Architect Name | Role | Phone | [...] | | | | Mailcode: CH10U | [place], [place] | | | | | [facility] | [address] | | | | | and Healing, | [phone] | | | | | Building | | | | | | Floor [place], [place] | | | | | | [address] | | | | | | [phone] | | | +--------+ + + + [...]
--- OUTSIDE RECORDS SUMMARY | ~2019-04-30 | XMS | Encounter Summary ---
Demographics + + + | Address | GENERAL DELIVERY | | | [place] [address] | + + + | Home Phone [...] Team Providers + +------+ + | Care Scouring Train Operator Chief Name | Role | Phone | [...] | | | | | | | [address] | | | | | | | Ave | | | | | | | [place], [place] | | | | | | | [address] | | | | | | | Phone: | | | | | | | [phone] | | | | | | | Fax: | | | | | | | [phone] | +--------+--------+ + + + + Encounter [...] | | | | Mailcode: CH10U | [place], [place] | | | | | [facility] | [address] | | | | | and Healing, | [phone] | | | | | | | | | | | Floor [facility] [place] | | | | | | [address] | | | | | | [phone] | | | +--------+ + + + [...] month Facility will likely change care to [place] due to distance. documented in this encounter Plan of Treatment Not on filedocumented as of this encounter Visit Diagnoses + + | Diagnosis | + + | Urinary retention - Primary Retention of urine, unspecified | + + documented in this encounter"
--- OUTSIDE RECORDS SUMMARY | ~2019-04-30 | XMS | Encounter Summary ---
Demographics + + + | Address | GENERAL DELIVERY | | | [place] [address] | + + + | Home Phone [...] Team Providers + +------+ + | Care Electronics Research Engineer Name | Role | Phone [...] | | | | Mailcode: CH10U | [place], [place] | | | | | [facility] | [address] | | | | | and Healing, | [phone] | | | | | | | | | | | Floor [place], [place] | | | | | | [address] | | | | | | [phone] | | | +--------+ + + + [...]
--- OUTSIDE RECORDS SUMMARY | ~2019-04-30 | XMS | Encounter Summary ---
Demographics + + + | Address | GENERAL DELIVERY | | | [place] [address] | + + + | Home Phone [...] Providers + +------+ + | Care Global Marketing Specialist Name | Role | Phone | + +------+ + PCP | Unavailable | + +------+ + Encounter Details +--------+ + + + + | Date | Type | Department | Care Team | Description | +--------+ + + + + | 06/14/ | Document-Sc | Digestive Health | Jeancarlos Marley MD | | | 2015 | anned | [place] [address] [address] | [address] | | | | | [address] | [place], [place] | | | | | Mailcode: OC8D | [address] | | | | | [facility] | [phone] | | | | | and Healing, | | | | | | [address] | | | | | | [place], [place] | | | | | | [address] | | | | | | [phone] | | | +--------+ + + + [...]
[2019-04-30] MEDS ORDERED: LEVAQUIN500 MG PO (02:52)
== END 2019-04-30 03:00 | disposition home or self-care (01) ==
LOC: ED 01:40
DX: N41.9 Inflammatory disease of prostate, unspecified (principal); I10 Essential (primary) hypertension; F31.9 Bipolar disorder, unspecified; F17.200 Nicotine dependence, unspecified, uncomplicated; Z88.1 Allergy status to other antibiotic agents; Z88.2 Allergy status to sulfonamides; Z88.8 Allergy status to other drugs, medicaments and biological substances; Z91.048 Other nonmedicinal substance allergy status
CPT/HCPCS: 51702; 81001; 99283-25

== ENCOUNTER → 2019-05-14 | Emergency (ER) | payer OTHER ==
[~2019-05-14] VITALS: Ht 177.8 cm; Wt 104.3 kg
[~2019-05-14] MED LIST changes: +LEVAQUIN500 MG PO
--- OUTSIDE RECORDS SUMMARY | ~2019-05-14 | XMS | Encounter Summary ---
Demographics + + + | Address | GENERAL DELIVERY | | | [place] [address] | + + + | Home Phone | | + + + | Preferred Language | Unknown | + + + | Marital Status | Single | + + + | Pentecostalism Affiliation | NON | + + + | Race | White | + + + | Ethnic Group | Not or | + + + Author + + + | Author | [facility] | + + + | Organization | [facility] | + + + | Address | Unknown | + + + | Phone | Unavailable | + + + Support + + +---------+ + | Name | Relationship | Address | Phone | + + +---------+ + | Per None, PT | ECON | Unknown | Unavailable | + + +---------+ + Care Team Providers + +------+ + | Care Wood Scaler Name | Role | Phone | + +------+ + PCP | Unavailable | + +------+ + Reason for Visit + + + | Reason | Comments | + + + | Lab Order | | + + + Encounter Details +--------+ + + + + | Date | Type | Department | Care Team | Description | +--------+ + + + + | 06/15/ | Telephone | Digestive Health | Jeancarlos Marley MD | Lab Order | | 2014 | | [place] at [facility] [address] | [address] | | | | | [address] | [facility] [place] | | | | | Mailcode: OC8D | [address] | | | | | [facility] | [phone] | | | | | and Healing, | | | | | | [address] | | | | | | [place], [place] | | | | | | [address] | | | | | | [phone] | | | +--------+ + + + [...] Not on filedocumented as of this encounter Visit Diagnoses Not on filedocumented in this encounter"
--- OUTSIDE RECORDS SUMMARY | ~2019-05-14 | XMS | Encounter Summary ---
Demographics + + + | Address | GENERAL DELIVERY | | | [place] [address] | + + + | Home Phone | | + + + | Preferred Language | Unknown | + + + | Marital Status | Single | + + + | Sikh Affiliation | NON | + + + | Race | White | + + + | Ethnic Group | Not or | + + + Author + + + | Author | [facility] | + + + | Organization | [facility] | + + + | Address | Unknown | + + + | Phone | Unavailable | + + + Support + + +---------+ + | Name | Relationship | Address | Phone | + + +---------+ + | Per None, PT | ECON | Unknown | Unavailable | + + +---------+ + Care Team Providers + +------+ + | Care Automotive Sales Professional Name | Role | Phone | + [...] Abdominal pain | | 2007 | | [place] [address] [address] | [address] | (liver pain) | | | | [address] | [place], [place] | | | | | Mailcode: OC8D | [address] | | | | | [facility] [facility] | [phone] | | | | | and Healing, | | | | | | [address] | | | | | | [place], [place] | | | | | | [address] | | | | | | [phone] | | | +--------+ + + + [...] | + + + + + | [facility] DEPARTMENT OF | [address] | [place] [address] | | | PATHOLOGY | [address] | | | + + + + + | [facility] DEPARTMENT OF | [address] | [place] [address] | | | PATHOLOGY | [address] [...] | + + + + + | [facility] | [address] | [place] [address] | | | PATHOLOGY | [address] | | | + + + + + | [facility] OF | [address] | [place] [address] | | | PATHOLOGY | [address] [...] Performed At | + + + | [id number] Estimated GFR > 60 mL/min/1.73 sq m if non- | [facility] | | [place] [id number] Estimated GFR > 60 mL/min/1.73 sq m if | DEPARTMENT OF | | [place] GFR is estimated using the MDRD equation [...] | + + + + + | [facility] | [address] | [place] [address] | | | PATHOLOGY | [address] | | | + + + + + | [facility] | [address] | [place] [address] | | | PATHOLOGY | [address] [...] spleen | | | | | | efxevnuh78.5 cm in | | | | | [...] | | + +---------+ + + | [facility] DEPARTMENT OF | | | | [...]
--- OUTSIDE RECORDS SUMMARY | ~2019-05-14 | XMS | Encounter Summary ---
Demographics + + + | Address | GENERAL DELIVERY | | | [place] [address] | + + + | Home Phone | | + + + | Preferred Language | Unknown | + + + | Marital Status | Single | + + + | Anabaptism Affiliation | NON | + + + | Race | White | + + + | Ethnic Group | Not or | + + + Author + + + | Author | [facility] | + + + | Organization | [facility] | + + + | Address | Unknown | + + + | Phone | Unavailable | + + + Support + + +---------+ + | Name | Relationship | Address | Phone | + + +---------+ + | Per None, PT | ECON | Unknown | Unavailable | + + +---------+ + Care Team Providers + +------+ + | Care Doula Name | Role | Phone | + +------+ + PCP | Unavailable | + +------+ + Encounter Details +--------+ + + + + | Date | Type | Department | Care Team | Description | +--------+ + + + + | 06/14/ | Document-Sc | Digestive Health | Jeancarlos Marley MD | | | 2015 | anned | [place] [address] [address] | [address] | | | | | [address] | [place], [place] | | | | | Mailcode: OC8D | [address] | | | | | [facility] | [phone] | | | | | and Healing, | | | | | | [address] | | | | | | [place], [place] | | | | | | [address] | | | | | | [phone] | | | +--------+ + + + [...] + +--------+ + + + | US HEPATOCELLULAR | | 06/14/2014 | | | | CARCINOMA SCREENING | | 12:00 AM | | | | | | PST | | | + +--------+ + + + documented in this encounter Results US HEPATOCELLULAR CARCINOMA SCREENING (06/14/2014 12:00 AM PST) + + + | Narrative | Performed At | + + + | | | + + + documented in this encounter Visit Diagnoses Not on filedocumented in this encounter"
--- OUTSIDE RECORDS SUMMARY | ~2019-05-14 | XMS | Encounter Summary ---
Demographics + + + | Address | GENERAL DELIVERY | | | [place] [address] | + + + | Home Phone | | + + + | Preferred Language | Unknown | + + + | Marital Status | Single | + + + | Baptist Affiliation | NON | + + + | Race | White | + + + | Ethnic Group | Not or | + + + Author + + + | Author | [facility] | + + + | Organization | [facility] | + + + | Address | Unknown | + + + | Phone | Unavailable | + + + Support + + +---------+ + | Name | Relationship | Address | Phone | + + +---------+ + | Per None, PT | ECON | Unknown | Unavailable | + + +---------+ + Care Team Providers + +------+ + | Care Bridge Construction Inspector Name | Role | Phone | [...] Required | | hepatitis C | [address] | [address] | | | | | without | [address] | Ave | | | | | mention of | [place]n [place], | [place], [place] | | | | | hepatic coma | [place] [address] | [address] | | | | | Procedures | Phone: | Phone: | | | | | CONSULT TO | [phone] | [phone] | | | | | HEPATOLOGY | Fax: | Fax: | | | | | | [phone] | [phone] | +--------+ + + + + + Encounter Details +--------+---------+ + + + | Date | Type | Department | Care Team | Description | +--------+---------+ + + + | 02/27/ | Office | Digestive Health | Jeancarlos Rich MD | Chronic Hepatitis C | | 2007 | Visit | Center at [facility] [address] | [address] | without Mention of | | | | [address] | [place], [place] | Hepatic Coma | | | | Mailcode: OC8D | [address] | (Primary Dx) | | | | [place] [facility] | [phone] | | | | | and Healing, | | | | | | [address] | | | | | | [place], [place] | | | | | | [address] | | | | | | [phone] | | | +--------+---------+ + + + [...] on filedocumented as of this encounter Results [facility] - INR (PROTHROMBINTIME) (02/28/2008 9:24 AM PDT) [...] | + + + + + | [facility] | [address] | [place] [address] | | | PATHOLOGY | [address] | | | + + + + + | [facility] | [address] [place] [address] | [place] [address] | | | PATHOLOGY | [address] [...] | + + + + + | [facility] | [address] | [place] [address] | | | PATHOLOGY | [address] | | | + + + + + | [facility] | [address] [place] [address] | [place] [address] | | | PATHOLOGY | [address] [...] DEPARTMENT OF | [address] | [place] [address] | | | PATHOLOGY | [address] | | | + + + + + | [facility] | [address] | [place] [address] | | | PATHOLOGY | [address] | | | + + + + + documented in this encounter Visit Diagnoses + + | Diagnosis | + + | Chronic hepatitis C without mention of hepatic coma - Primary | + + documented in this encounter"
--- OUTSIDE RECORDS SUMMARY | ~2019-05-14 | XMS | Encounter Summary ---
Demographics + + + | Address | GENERAL DELIVERY | | | [place] [address] | + + + | Home Phone | | + + + | Preferred Language | Unknown | + + + | Marital Status | Single | + + + | Rastafarian Affiliation | NON | + + + | Race | White | + + + | Ethnic Group | Not or | + + + Author + + + | Author | [facility] | + + + | Organization | [facility] | + + + | [...] Providers + +------+ + | Care Family And Marriage Counsellor Name | Role | Phone | + [...] Catheter Problem | | 2009 | | [address] | [address] | | | | | Mailcode: CH10U | [place], [place] | | | | | [facility] | [address] | | | | | and Healing, | [phone] | | | | | [facility] | | | | | | Floor [place], [place] | | | | | | [address] | | | | | | [phone] | | | +--------+ + + + [...]
--- OUTSIDE RECORDS SUMMARY | ~2019-05-14 | XMS | Encounter Summary ---
Demographics + + + | Address | [address] DELIVERY | | | [place] [address] | + + + | Home Phone [...] + + + | Author | [facility] | + + + | Organization | [facility] | + + + | Address | Unknown | + + + | Phone | Unavailable | + + + Support + + +---------+ + | Name | Relationship | Address | Phone | + + +---------+ + | Per None, PT | ECON | Unknown | Unavailable | + + +---------+ + Care Team Providers + +------+ + | Care Tennis Ball Cover Cementer Name | Role | Phone | + [...] | | | | Mailcode: CH10U | [place], [place] | and counseling | | | | [facility] | [address] | | | | | and Healing, | [phone] | | | | | [facility] | | | | | | Floor [place], [place] | | | | | | [address] | | | | | | [phone] | | | +--------+ + + + [...]
--- OUTSIDE RECORDS SUMMARY | ~2019-05-14 | XMS | Encounter Summary ---
Demographics + + + | Address | [address]ERY | | | [place] [address] | + + + | Home Phone | | + + + | Preferred Language | Unknown | + + + | Marital Status | Single | + + + | Oriental Orthodox Affiliation | NON | + + [...] Team Providers + +------+ + | Care It Operations Analyst Name | Role | Phone | + +------+ + PCP | Unavailable | + +------+ + Reason for Visit +--------+ + | Reason | Comments | +--------+ + | Other | need abd u/s order faxed/mailed | +--------+ + Encounter Details +--------+ + + + + | Date | Type | Department | Care Team | Description | +--------+ + + + + | 06/21/ | Telephone | Digestive Health | Jeancarlos Marley MD | Other (need abd u/s | | 2007 | | [place] at [facility] [address] | [address] | order faxed/mailed) | | | | [address] | [place], [place] | | | | | Mailcode: [id number] | [address] | | | | | [facility] | [phone] | | | | | and [place], | | | | | | [address] | | | | | | [place], [place] | | | | | | [address] | | | | | | [phone] | | | +--------+ + + + [...] of this encounter Plan of Treatment + +---------+--------+ + + | Name | Type | Priori | Associated Diagnoses | Order Schedule | | | | ty | | | + +---------+--------+ + + | US ABDOMEN COMPLETE | Imaging | Routin | Chronic Hepatitis | Ordered: 06/21/2007 | | | | e | C without Mention of | | | | | | Hepatic Coma | | + +---------+--------+ + + documented as of this encounter Visit Diagnoses + + | Diagnosis | + + | Chronic hepatitis C without mention of hepatic coma - Primary | + + documented in this encounter"
--- OUTSIDE RECORDS SUMMARY | ~2019-05-14 | XMS | Encounter Summary ---
Demographics + + + | Address | [address] DELIVERY | | | [place] [address] | + + + | Home Phone [...] Team Providers + +------+ + | Care Marine Oiler Name | Role | Phone | + [...] PPV | | | | | | [address] | | | | | | Loop Mailcode: | | | | | | [address] Physician's | | | | | | [facility] | | | | | | [place] [address] | | | | | | [phone] | | | +--------+ + + + [...] | | | | | | report.Author: BANDRA | | | | | | Maria [...] | | + +---------+ + + | [facility] DEPARTMENT | | | | | RADIOLOGY | | | | + +---------+ + + documented in this encounter Visit Diagnoses Not on filedocumented in this encounter"
--- OUTSIDE RECORDS SUMMARY | ~2019-05-14 | XMS | Encounter Summary ---
Demographics + + + | Address | [address] [place]ERY | | | [place] [address] | + + + | Home Phone [...] Team Providers + +------+ + | Care Conference Service Coordinator Name | Role | Phone | + +------+ + PCP | Unavailable | + +------+ + Encounter Details +--------+ + + + + | Date | Type | Department | Care Team | Description | +--------+ + + + + | 06/15/ | Document-Sc | Digestive Health | Jeancarlos Marley MD | | | 2015 | anned | [place] [address] [address] | [address] | | | | | [address] | [place], [place] | | | | | Mailcode: OC8D | [address] | | | | | [facility] | [phone] | | | | | and Healing, | | | | | | [address] | | | | | | [place], [place] | | | | | | [address] | | | | | | [phone] | | | +--------+ + + + [...]
--- OUTSIDE RECORDS SUMMARY | ~2019-05-14 | XMS | Encounter Summary ---
Demographics + + + | Address | [place]ERY | | | [place] [address] | + + + | Home Phone [...] Team Providers + +------+ + | Care Senior Oracle Adf Developer Name | Role | Phone | + [...] Mention of | | | | at [facility] 3rd Floor | | Hepatic Coma | | | | [address] | | | | | | Loop [place], [place] | | | | | | [address] | | | | | | [phone] | | | +--------+------+ + + + [...] | + + + + + | [facility] | [address] [address] | [place] [address] | | | PATHOLOGY | [address] | | | + + + + + | [facility] | [address] [facility] | [place] [address] | | | PATHOLOGY | [address] [...] | + + + + + | [facility] | [address] [facility] [facility] | [place] [address] | | | PATHOLOGY | [address] | | | + + + + + | [facility] DEPARTMENT OF | [address] [facility] [facility] | [place] [address] | | | PATHOLOGY | [address] [...] | + + + + + | [facility] | [address] [facility] [facility] | [place] [address] | | | PATHOLOGY | [address] | | | + + + + + | [facility] | [address] [facility] | [place] [address] | | | PATHOLOGY | [address] [...] Performed At | + + + | [id number] Estimated GFR > 60 mL/min/1.73 sq m if non- | MISU | | Micronesian [id number] Estimated GFR > 60 mL/min/1.73 sq m if | DEPARTMENT OF | | [place]ron[place] GFR is estimated using the MDRD equation [...] | + + + + + | [facility] DEPARTMENT | [address] | [place] [address] | | | PATHOLOGY | [address] | | | + + + + + | [facility] | [address] | [place] [address] | | | PATHOLOGY | [address] | | | + + + + + documented in this encounter Visit Diagnoses + + | Diagnosis | + + | Chronic hepatitis C without mention of hepatic coma | + + documented in this encounter"
--- OUTSIDE RECORDS SUMMARY | ~2019-05-14 | XMS | Encounter Summary ---
Demographics + + + | Address | [address] [place]ERY | | | [place] [address] | + + + | Home Phone | | + + + | Preferred Language | Unknown | + + + | Marital Status | Single | + + + | Temple Affiliation | NON | + + + | Race | White | + + + | Ethnic Group | Not or | + + + Author + + + | Author | [facility] | + + + | Organization | [facility] | + + + | Address | Unknown | + + + | Phone | Unavailable | + + + Support + + +---------+ + | Name | Relationship | Address | Phone | + + +---------+ + | Per None, PT | ECON | Unknown | Unavailable | + + +---------+ + Care Team Providers + +------+ + | Care Social Service Coordinator Name | Role | Phone [...] + + + + | 02/14/ | Erroneous | Urology Adult | Armand Ordonez MD | No Show | | 2010 | Enc-IP | [address] | [address] | | | | | Mailcode: CH10U | [place], [place] | | | | | [facility] | [address] | | | | | and [place], | [phone] | | | | | [facility] | | | | | | Floor [place], [place] | | | | | | [address] | | | | | | [phone] | | | +--------+ + + + [...]
--- OUTSIDE RECORDS SUMMARY | ~2019-05-14 | XMS | Encounter Summary ---
Demographics + + + | Address | [place] DELIVERY | | | [place] [address] | + + + | Home Phone [...] Team Providers + +------+ + | Care Dural Mechanic Name | Role | Phone | + [...] Urology Adult | Armand Ordonez MD | Pain | | 2010 | | [address] | [address] | | | | | Mailcode: CH10U | [place], [place] | | | | | [facility] | [address] | | | | | and Healing, | [phone] | | | | | | | | | | | Floor [place], [place] | | | | | | [address] | | | | | | [phone] | | | +--------+ + + + [...]
--- OUTSIDE RECORDS SUMMARY | ~2019-05-14 | XMS | Encounter Summary ---
Demographics + + + | Address | [address] [place]ERY | | | [place] [address] | + + + | Home Phone | | + + + | Preferred Language | Unknown | + + + | Marital Status | Single | + + + | Samaritan Affiliation | NON | + + + [...] Team Providers + +------+ + | Care Criminal Psychologist Name | Role | Phone | + +------+ + PCP | Unavailable | + +------+ + Reason for Visit + + + | Reason | Comments | + + + | Blood Test Results | Outside labs from [facility] 06/08/14. | + + + Encounter Details +--------+ + + + + | Date | Type | Department | Care Team | Description | +--------+ + + + + | 06/13/ | Documentati | Digestive Health | Jeancarlos Marley MD | Blood Test Results | | 2014 | on | Center at [facility] [address] | [address] | (Outside labs from | | | | [address] | [place], [place] | [facility] | | | | Mailcode: OC8D | [address] | 06/08/14.) | | | | [facility] | [phone] | | | | | and Healing, | | | | | | [address] | | | | | | [place], [place] | | | | | | [address] | | | | | | [phone] | | | +--------+ + + + [...] | + +---------+ + + | NON [facility] | | | | + +---------+ + + documented in this encounter Visit Diagnoses Not on filedocumented in this encounter"
--- OUTSIDE RECORDS SUMMARY | ~2019-05-14 | XMS | Encounter Summary ---
Demographics + + + | Address | [address] [place]IVERY | | | [place] [address] | + + + | Home Phone [...] Team Providers + +------+ + | Care Medication Manager Name | Role | Phone | [...] abd u/s | | 2007 | | [place] at [facility] [address] | [address] | order faxed/mailed) | | | | [address] | [place], [place] | | | | | Mailcode: [id number] | [address] | | | | | [facility] | [phone] | | | | | and [place], | | | | | | [address] | | | | | | [place], [place] | | | | | | [address] | | | | | | [phone] | | | +--------+ + + + [...]
--- OUTSIDE RECORDS SUMMARY | ~2019-05-14 | XMS | Encounter Summary ---
Demographics + + + | Address | GENER[address] DELIVERY | | | [place] [address] | + + + | Home Phone | | + + + | Preferred Language | Unknown | + + + | Marital Status | Single | + + + | Latter-Day Affiliation | NON | + + + | Race | White | + + + | Ethnic Group | Not or | + + + Author + + + | Author | [facility] | + + + | Organization | [facility] | + + + | Address | Unknown | + + + | Phone | Unavailable | + + + Support + + +---------+ + | Name | Relationship | Address | Phone | + + +---------+ + | Per None, PT | ECON | Unknown | Unavailable | + + +---------+ + Care Team Providers + +------+ + | Care Ict Managers Name | Role | Phone | + +------+ + | Etienne Barnes PA-C | PCP | | + +------+ + Encounter Details +--------+ + + + + | Date | Type | Department | Care Team | Description | +--------+ + + + + | 06/15/ | Document-Sc | UNKNOWN DEPARTMENT | Unknown . | | | 2014 | anned | [address] [facility] | | | | | | [address] | | | | | | [place], [place] | | | | | | [address] | | | +--------+ + + + [...]
--- OUTSIDE RECORDS SUMMARY | ~2019-05-14 | XMS | Encounter Summary ---
Demographics + + + | Address | [address]ERY | | | [place] [address] | + + + | Home Phone [...] Team Providers + +------+ + | Care Banana Loader Name | Role | Phone | + [...] | | | PROVIDER PER | [address] | | | | | | PT | for Health | | | | | | | and Healing, | | | | | | | Building [address], | | | | | | | 10th Floor | | | | | | | [place], [place] | | | | | | | [address] | | | | | | | Phone: | | | | | | | [phone] | | | | | | | Fax: | | | | | | | [phone] | +--------+--------+ + + + + Encounter [...] | | | | Mailcode: CH10U | [facility] [place] | | | | | [facility] | [address] | | | | | and Healing, | [phone] | | | | | [facility] [place] [facility] | | | | | | Floor [place], [place] | | | | | | [address] | | | | | | [phone] | | | +--------+---------+ + + + [...] PDT12 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 Has had ER visits [...] out of wound for easy remov al/change [facility] present and packing reviewed. A/P: Wound [...]
--- OUTSIDE RECORDS SUMMARY | ~2019-05-14 | XMS | Encounter Summary ---
Demographics + + + | Address | [address] DELIVERY | | | [place] [address] | + + + | Home Phone [...] Team Providers + +------+ + | Care Communications Tech Name | Role | Phone | + [...] Required | | hepatitis C | [address] | [address] [facility] | | | | | without | [address] | Ave | | | | | mention of | [place], | [place], [place] | | | | | hepatic coma | [place] [address] | [address] | | | | | Procedures | Phone: | Phone: | | | | | CONSULT TO | [phone] | [phone] | | | | | HEPATOLOGY | Fax: | Fax: | | | | | | [phone] | [phone] | +--------+ + + + + + Encounter Details +--------+---------+ + + + | Date | Type | Department | Care Team | Description | +--------+---------+ + + + | 06/16/ | Office | Digestive Health | Jeancarlos Marley MD | Chronic Hepatitis C | | 2007 | Visit | Center at [facility] [address] | [address] | without Mention of | | | | [address] | [place], [place] | Hepatic Coma | | | | Mailcode: OC8D | [address] | (Primary Dx) | | | | [place] [facility] | [phone] | | | | | and Healing, | | | | | | [address] | | | | | | [place], [place] | | | | | | [address] | | | | | | [phone] | | | +--------+---------+ + + + [...] + + | Performing | Address | City/State/[place] [facility] | Phone Number | | Organization | [...] | | | | | determined bythe [facility] | | | | | | DNA [...] | | | | | Improvement Act [id number]. | | | | | | The [facility] | | | | | | Laboratory is a fully | | | | | | licensed and/ | | | | | | oraccredited clinical | | | | | | laboratory under CLIA, | | | | | | [place], and the State of | | | | | | [place]. | | | | + + + + + + + + | Specimen | + + | | + + + + + + + | Performing | Address | City/State/Zipcode | Phone Number | | Organization | | | | + + + + + | [facility] | [facility] | [place] [address] | | | GENETICS LABS | [address] | | | | | [address]VE. [...] Iron and TIBC, Serum Test performed by [facility] | | | [facility]. | | + + + + + + + + | Performing | Address | City/State/Zipcode | Phone Number | | Organization | | | | + + + + + | [facility] | [address] | [place] [address] | | | LABORATORY | | | [...] | | | [facility] | | | [address] [place], [place] | | | [address] | | + + + + + + + + | Performing | Address | City/State/Zipcode | Phone Number | | Organization | | | | + + + + + | [facility] | [address] | [place] [address] | | | LABORATORY | | | [...] + + | Test performed by [facility]. | | + + + + + + + + | Performing | Address | City/State/Zipcode | Phone Number | | Organization | | | | + + + + + | [facility] | [address] | [place] [address] | | | LABORATORY | | | [...] by | | | | | | [facility] | | | | | | [facility]. | | | | + + + + + + + + | Specimen | + + | | + + + + + + + | Performing | Address | City/State/Zipcode | Phone Number | | Organization | | | | + + + + + | [facility] | [address] | [place] [address] | | | LABORATORY | | | [...] | [facility] DEPARTMENT OF | [address] [facility] | [place] [address] | | | PATHOLOGY | [address] | | | + + + + + | [facility] DEPARTMENT OF | [address] [facility] [address] | [place] [address] | | | PATHOLOGY | [address] [...] + + + + + | [facility] DEPARTMENT OF | [facility] | [place] [address] | | | PATHOLOGY | [address] | | | + + + + + | [facility] DEPARTMENT OF | [address] | [place] [address] | | | PATHOLOGY | [address] | | | + + + + + documented in this encounter Visit Diagnoses + + | Diagnosis | + + | Chronic hepatitis C without mention of hepatic coma - Primary | + + documented in this encounter
--- OUTSIDE RECORDS SUMMARY | ~2019-05-14 | XMS | Encounter Summary ---
Demographics + + + | Address | GENERAL DELIVERY | | | [place] [address] | + + + | Home Phone [...] Providers + +------+ + | Care Machine Clothing Replacer Name | Role | Phone | + +------+ + PCP | Unavailable | + +------+ + Encounter Details +--------+------+ + + + | Date | Type | Department | Care Team | Description | +--------+------+ + + + | 12/23/ | Lab | Laboratory at [facility] | | RUQ Abdominal Pain; | | 2007 | | [address] | | Chronic Hepatitis C | | | | [place], [place] | | without Mention of | | | | [address] | | Hepatic Coma | | | | [phone] | | | +--------+------+ + + + [...] | + + + + + | [facility] | [address] | [place] [address] | | | PATHOLOGY | [address] | | | + + + + + | [facility] | [facility] [address] | [place] [address] | | | PATHOLOGY | [address] [...] + + + + | [facility] DEPARTMENT OF | [address] [facility] | [facility] [place] [address] | | | PATHOLOGY | [address] | | | + + + + + | [place] DEPARTMENT OF | [address] [facility] | [place] [address] | | | PATHOLOGY | [address] [...] | + + + + + | [facility] | [address] [facility] | [place] [address] | | | PATHOLOGY | [address] | | | + + + + + | [facility] OF | [address] [facility] | [place] [address] | | | PATHOLOGY | [address] | | | + + + [...] Performed At | + + + | [id number] Estimated GFR > 60 mL/min/1.73 sq m if non- | [facility] | | [place] [id number] Estimated GFR > 60 mL/min/1.73 sq m if | DEPARTMENT OF | | [place] GFR is estimated using the MDRD equation [...] | + + + + + | [facility] | [address] [facility] | [place] [address] | | | PATHOLOGY | [address] | | | + + + + + | [facility] | [address] | [place] [address] | | | PATHOLOGY | [address] | | | + + + + + documented in this encounter Visit Diagnoses + + | Diagnosis | + + | RUQ abdominal pain Abdominal pain, right upper quadrant | + + | Chronic hepatitis C without mention of hepatic coma | + + documented in this encounter"
--- OUTSIDE RECORDS SUMMARY | ~2019-05-14 | XMS | Encounter Summary ---
Demographics + + + | Address | GENERAL DELIVERY | | | [place] [address] | + + + | Home Phone | | + + + | Preferred Language | Unknown | + + + | Marital Status | Single | + + + | Yazidi Affiliation | NON | + + + [...] Team Providers + +------+ + | Care Neurology Tech Name | Role | Phone | + +------+ + | Lakesha River | PCP | | + +------+ + Encounter Details +--------+ + + + + | Date | Type | Department | Care Team | Description | +--------+ + + + + | 02/27/ | Telephone | [facility] | Jeancarlos Marley MD | | | 2007 | | [place] [address] [address] | [address] | | | | | [address] | [place], [place] | | | | | Mailcode: OC8D | [address] | | | | | [facility] | [phone] | | | | | and Healing, | | | | | | [address] | | | | | | [place], [place] | | | | | | [address] | | | | | | [phone] | | | +--------+ + + + [...]
--- OUTSIDE RECORDS SUMMARY | ~2019-05-14 | XMS | Encounter Summary ---
Demographics + + + | Address | GENERAL DELIVERY | | | [place] [address] | + + + | Home Phone [...] Team Providers + +------+ + | Care Sales Representative Meats Name | Role | Phone | + [...] | | | URINARY | [place] | [address] | | | | | RETENTION | STATE | Ave | | | | | | HOSPITAL | [place], [place] | | | | | | [address] | [address] | | | | | | [address] | Phone: | | | | | | [place], [place] | [phone] | | | | | | [address] | Fax: | | | | | | Phone: | [phone] | | | | | | [phone] | | | | | | | Fax: | | | | | | | [phone] | | +--------+--------+ + + + + [...] | | | | Mailcode: CH10U | [place], [place] | | | | | [facility] | [address] | | | | | and [address], | [phone] | | | | | | | | | | | Floor [place], [place] | | | | | | [address] | | | | | | [phone] | | | +--------+ + + + [...] hands with soap and water or hand mortgage loan officer. Clean the tip of the penis with [...] or contact PCP or call us at [phone] or after hours at [phone] for signs or symptoms of UTI. Urinary [...] this encounter Progress Notes Kali Sanders, Ghanshyam Kelely - 03/28/2010 11:58 AM PSTUrology Patient Instructions [...] for life. We will have our clinic public relations account executive the proper technique. He should be able [...] Resident Physician - Division of Urology Pager #[id number] Wang Fitzgerald Md - 1 05/28/2009 10:48 [...] | + +--------+ + + + | [place] CYSTOURETHROSCOPY | Routin | 03/28/2010 | Unspecified [...] | + +--------+ + + + | [place] CYSTOURETHROSCOPY | Routin | 03/28/2010 | Voiding | Results for this | | | e | | dysfunction | procedure are in the | | | | | | results section. | + +--------+ + + + documented in this encounter Results [place] CYSTOURETHROSCOPY (03/28/2010) + + + | Narrative [...] + + + + | [facility] | [address] [facility] | [place] [address] | | | OF CARE TESTS | | | | + + + + + documented in this encounter Visit Diagnoses + + | Diagnosis | + + | Retention of urine, unspecified | + + | Voiding dysfunction Unspecified disorder of urethra and urinary tract | + + documented in this encounter"
--- OUTSIDE RECORDS SUMMARY | ~2019-05-14 | XMS | Encounter Summary ---
Demographics + + + | Address | GENERAL DELIVERY | | | [place] [address] | + + + | Home Phone [...] Team Providers + +------+ + | Care Broke Beater Operator Name | Role | Phone | + +------+ + | Lakesha River | PCP | | + +------+ + Encounter Details +--------+ + + + + | Date | Type | Department | Care Team | Description | +--------+ + + + + | 08/11/ | Telephone | [facility] | Jeancarlos Marley MD | | | 2008 | | Center at [facility] [address] | [address] | | | | | [address] | [place], [place] | | | | | Mailcode: Center | [address] | | | | | for Health and | [phone] | | | | | [facility] [address] | | | | | | [place], [place] | | | | | | [address] | | | | | | [phone] | | | +--------+ + + + [...] + + + + | [facility] | [address] [facility] | [place] [address] | | | PATHOLOGY | [address] | | | + + + + + | [facility] | [address] [facility] [facility] | [place] [address] | | | PATHOLOGY | [address] [...] + + + + | [facility] | [address] [facility] | [place] [address] | | | PATHOLOGY | [address] | | | + + + + + | [facility] | [address] [facility] | [place] [address] | | | PATHOLOGY | [address] [...] Performed At | + + + | [id number] Estimated GFR > 60 mL/min/1.73 sq m if non- | [facility] | | [place] [id number] Estimated GFR > 60 mL/min/1.73 sq m if | DEPARTMENT OF | | [place] GFR is estimated using the MDRD equation [...] + + + | [facility] DEPARTMENT | [address] [facility] [facility] | [place] [address] | | | PATHOLOGY | [address] | | | + + + + + | [facility] | [address] | [place] [address] | | | PATHOLOGY | [address] | | | + + + + + documented in this encounter Visit Diagnoses + + | Diagnosis | + + | Chronic hepatitis C without mention of hepatic coma - Primary | + + documented in this encounter"
--- OUTSIDE RECORDS SUMMARY | ~2019-05-14 | XMS | Clinical Summary ---
Demographics + + + | Address | GENERAL DELIVERY | | | [place] [address] | + + + | Home Phone [...] Author + + + | Author | [facility] | + + + | Organization | [facility] | + + [...] Providers + +------+ + | Care Field Specialist Name | Role | Phone | + +------+ + | Fam Donnelly MD | PCP | | + +------+ + Source Comments G[facility] is fully live on both [facility] and [facility] InPatient.[facility] Allergies + + + + + + [...] + +--------+ +--------+-------+---------+--------+ | [place] | AGENCY | xxxxxxxxx | 05/18/19 | | | Agency | | | STATE | | 11-Pre | | | | | | OF | | sent | | | | | | [place] | | | | | | + +--------+ +--------+-------+---------+--------+ | MOTOR PATROL OPERATOR MEDICAID | MOTOR PATROL OPERATOR | xxxxxxxx | 05/22/19 | | | [...] + +--------+ +--------+ + + | Peng Richardsno | Person | Self | [birth year] | GENERAL DELIVERY | | | al/Fam | | 1980 | [phone] | [place] [address] | | | linda | | | 3 (Home) | | + +--------+ +--------+ + + | Peng Richardson | Agency | Self | [birth year] | | GENERAL DELIVERY | | | | | 1980 | [phone] | [place] [address] | | | | | | 3 (Home) | | + +--------+ +--------+ + + Advance Directives + + + + + | Type | Date Recorded | Patient | Explanation | | | | Maple Products Maker | | + + + + + | Advance | | | | | Directives and | | | | | Living Will | | | | + + + + + | Power of | | | | | Fast Food Manager | | | | + + + + +
--- OUTSIDE RECORDS SUMMARY | ~2019-05-14 | XMS | Encounter Summary ---
Demographics + + + | Address | GENERAL DELIVERY | | | [place] [address] | + + + | Home Phone [...] Team Providers + +------+ + | Care Dog Barber Name | Role | Phone | + [...] | | | URINARY | [place] | [address] | | | | | RETENTION | STATE | Ave | | | | | | HOSPITAL | [place], [place] | | | | | | [address] | [address] | | | | | | [address] | Phone: | | | | | | [place], [place] | [phone] | | | | | | [address] | Fax: | | | | | | Phone: | [phone] | | | | | | [phone] | | | | | | | Fax: | | | | | | | [phone] | | +--------+--------+ + + + + [...] | | | | Mailcode: CH10U | [place], [place] | | | | | [facility] | [address] | | | | | and [address], | [phone] | | | | | | | | | | | Floor [place], [place] | | | | | | [address] | | | | | | [phone] | | | +--------+ + + + [...] hands with soap and water or hand large animal husbandry technician. Clean the tip of the penis with [...] or contact PCP or call us at [phone] or after hours at [phone] for signs or symptoms of UTI. Urinary [...] for life. We will have our clinic data reviewer the proper technique. He should be able [...] Resident Physician - Division of Urology Pager #[id number] Wang Fitzgerald Md - 1 05/28/2009 10:48 [...] | + +--------+ + + + | [place] CYSTOURETHROSCOPY | Routin | 03/28/2010 | Unspecified [...] | + +--------+ + + + | [place] CYSTOURETHROSCOPY | Routin | 03/28/2010 | Voiding | Results for this | | | e | | dysfunction | procedure are in the | | | | | | results section. | + +--------+ + + + documented in this encounter Results [place] CYSTOURETHROSCOPY (03/28/2010) + + + | Narrative [...] + + + | [facility] | [address] | [place] [address] | | | OF CARE TESTS | | | | + + + + + documented in this encounter Visit Diagnoses + + | Diagnosis | + + | Retention of urine, unspecified | + + | Voiding dysfunction Unspecified disorder of urethra and urinary tract | + + documented in this encounter"
--- OUTSIDE RECORDS SUMMARY | ~2019-05-14 | XMS | Encounter Summary ---
Demographics + + + | Address | [place]ERY | | | [place] [address] | + + + | Home Phone [...] + + + | Author | [facility] | + + + | Organization | [facility] | + + + | Address | Unknown | + + + | Phone | Unavailable | + + + Support + + +---------+ + | Name | Relationship | Address | Phone | + + +---------+ + | Per None, PT | ECON | Unknown | Unavailable | + + +---------+ + Care Team Providers + +------+ + | Care Traveling Representative Name | Role | Phone | + +------+ + | Lakesha River | PCP | | + +------+ + Encounter Details +--------+ + + + + | Date | Type | Department | Care Team | Description | +--------+ + + + + | 02/27/ | Telephone | [facility] | Jeancarlos Marley MD | | | 2007 | | [place] [address] [address] | [address] | | | | | [address] | [place], [place] | | | | | Mailcode: OC8D | [address] | | | | | [facility] | [phone] | | | | | and Healing, | | | | | | [address] | | | | | | [place], [place] | | | | | | [address] | | | | | | [phone] | | | +--------+ + + + [...]
--- OUTSIDE RECORDS SUMMARY | ~2019-05-14 | XMS | Encounter Summary ---
Demographics + + + | Address | [place]IVERY | | | [place] [address] | + + + | Home Phone | | + + + | Preferred Language | Unknown | + + + | Marital Status | Single | + + + | Congregation Affiliation | NON | + + + [...] Team Providers + +------+ + | Care Abnormal Psychology Teacher Name | Role | Phone | + +------+ + PCP | Unavailable | + +------+ + Reason for Visit + + + | Reason | Comments | + + + | Blood Test Results | Outside labs from [facility] 06/08/14. | + + + Encounter Details +--------+ + + + + | Date | Type | Department | Care Team | Description | +--------+ + + + + | 06/13/ | Documentati | Dig[facility]ive Health | Jeancarlos Marley MD | Blood Test Results | | 2014 | on | Center at [facility] [address] | [address] | (Outside labs from | | | | [address] | [place], [place] | [facility] | | | | Mailcode: OC8D | [address] | 06/08/14.) | | | | [facility] | [phone] | | | | | and Healing, | | | | | | [address] | | | | | | [place], [place] | | | | | | [address] | | | | | | [phone] | | | +--------+ + + + [...] | + +---------+ + + | NON [facility] | | | | + +---------+ + + documented in this encounter Visit Diagnoses Not on filedocumented in this encounter"
--- OUTSIDE RECORDS SUMMARY | ~2019-05-14 | XMS | Encounter Summary ---
Demographics + + + | Address | [place]IVERY | | | [place] [address] | + + + | Home Phone [...] Team Providers + +------+ + | Care Hotel Director Name | Role | Phone | + +------+ + PCP | Unavailable | + +------+ + Encounter Details +--------+ + + + + | Date | Type | Department | Care Team | Description | +--------+ + + + + | 06/15/ | Document-Sc | Dig[facility]ive Health | Jeancarlos Marley MD | | | 2015 | anned | [place] [address] [address] | [address] | | | | | [address] | [place], [place] | | | | | Mailcode: OC8D | [address] | | | | | [facility] | [phone] | | | | | and Healing, | | | | | | [address] | | | | | | [place], [place] | | | | | | [address] | | | | | | [phone] | | | +--------+ + + + [...]
--- OUTSIDE RECORDS SUMMARY | ~2019-05-14 | XMS | Encounter Summary ---
Demographics + + + | Address | GENERAL DELIVERY | | | [place] [address] | + + + | Home Phone [...] Team Providers + +------+ + | Care Section Laborer Name | Role | Phone | + [...] | | | | | retention | [place] | [address] | | | | | Urinary | STATE | Ave | | | | | Retention | HOSPITAL | [place], [place] | | | | | Procedures | [address] | [address] | | | | | REQUEST TO | [address] | Phone: | | | | | SURGERY | [place] | [phone] | | | | | [address] | [address] | Fax: | | | | | [place] | Phone: | [phone] | | | | | INCISE/DRAIN | [phone] | | | | | | BLADDER | Fax: | | | | | | suprapubic | [phone] | | | | | | cystostomy [...] | | | | | | | [address] | | | | | | | Ave | | | | | | | [place], [place] | | | | | | | [address] | | | | | | | Phone: | | | | | | | [phone] | | | | | | | Fax: | | | | | | | [phone] | +--------+--------+ + + + + Encounter [...] | | | | Mailcode: CH10U | [place], [place] | | | | | [facility] | [address] | | | | | and Healing, | [phone] | | | | | | | | | | | Floor [facility] [place] | | | | | | [address] | | | | | | [phone] | | | +--------+ + + + [...] Armand Ordonez MD - 01/22/2011 12:51 PM [id number], former patient of Dr. Canchola, is an inpat ient at [facility] for at least 3 more [...] | + +--------+ + + + | [place] CYSTOURETHROSCOPY | Routin | 01/22/2011 | Urinary retention | Results for this | | | e | | | procedure are in the | | | | | | results section. | + +--------+ + + + documented in this encounter Results [place] CYSTOURETHROSCOPY (01/22/2011) + + + | Narrative [...]
--- OUTSIDE RECORDS SUMMARY | ~2019-05-14 | XMS | Encounter Summary ---
Demographics + + + | Address | GENERAL DELIVERY | | | [place] [address] | + + + | Home Phone [...] Team Providers + +------+ + | Care Mental Health Unit Lead Psychologist Name | Role | Phone | [...] PPV | | | | | | [address] | | | | | | Loop Mailcode: | | | | | | [address] Physician's | | | | | | [facility] | | | | | | [place] [address] | | | | | | [phone] | | | +--------+ + + + [...] | | + +---------+ + + | [facility] DEPARTMENT | | | | | RADIOLOGY | | | | + +---------+ + + documented in this encounter Visit Diagnoses Not on filedocumented in this encounter"
--- OUTSIDE RECORDS SUMMARY | ~2019-05-14 | XMS | Encounter Summary ---
Demographics + + + | Address | [place] DELIVERY | | | [place] [address] | + + + | Home Phone [...] Providers + +------+ + | Care Legal Technician Name | Role | Phone | [...] | | | | Mailcode: CH10U | [place], [place] | | | | | [facility] | [address] | | | | | and [address], | [phone] | | | | | [facility] | | | | | | Floor [place], [place] | | | | | | [address] | | | | | | [phone] | | | +--------+ + + + [...]
--- OUTSIDE RECORDS SUMMARY | ~2019-05-14 | XMS | Encounter Summary ---
Demographics + + + | Address | GENERAL DELIVERY | | | [place] [address] | + + + | Home Phone [...] Providers + +------+ + | Care Frame Expander Name | Role | Phone | + +------+ + PCP | Unavailable | + +------+ + Encounter Details +--------+------+ + + + | Date | Type | Department | Care Team | Description | +--------+------+ + + + | 12/23/ | Lab | Laboratory at [facility] | | RUQ Abdominal Pain; | | 2007 | | [address] | | Chronic Hepatitis C | | | | [place], [place] | | without Mention of | | | | [address] | | Hepatic Coma | | | | [phone] | | | +--------+------+ + + + [...] + + | [facility] | [address] | [place] [address] | | | PATHOLOGY | [address] | | | + + + + + | [facility] | [facility] [address] | [place] [address] | | | PATHOLOGY | [address] [...] | [facility] DEPARTMENT OF | [address] [facility] | [place] [address] | | | PATHOLOGY | [address] | | | + + + + + | [place] DEPARTMENT OF | [address] [facility] [facility] | [place] [address] | | | PATHOLOGY | [address] [...] + | [facility] | [address] [facility] [facility] | [place] [address] | | | PATHOLOGY | [address] | | | + + + + + | [facility] | [address] | [place] [address] | | | PATHOLOGY | [address] [...] Performed At | + + + | [id number] Estimated GFR > 60 mL/min/1.73 sq m if non- | [facility] | | French [id number] Estimated GFR > 60 mL/min/1.73 sq m if | DEPARTMENT OF | | [place] GFR is estimated using the MDRD equation [...] + | [facility] | [address] [facility] [facility] | [place] [address] | | | PATHOLOGY | [address] | | | + + + + + | [facility] | [address] | [place] [address] | | | PATHOLOGY | [address] | | | + + + + + documented in this encounter Visit Diagnoses + + | Diagnosis | + + | RUQ abdominal pain Abdominal pain, right upper quadrant | + + | Chronic hepatitis C without mention of hepatic coma | + + documented in this encounter"
--- OUTSIDE RECORDS SUMMARY | ~2019-05-14 | XMS | Encounter Summary ---
Demographics + + + | Address | GENERAL DELIVERY | | | [place] [address] | + + + | Home Phone [...] Providers + +------+ + | Care Clinical Assistant Name | Role | Phone | [...] | abdominal | [address] | [address] | | | | | pain | [facility] | Ave | | | | | Neurogenic | Rd | [facility] [place] | | | | | bladder | [facility] [place] | [address] | | | | | Procedures | [address] | Phone: | | | | | CONSULT TO | Phone: | [phone] | | | | | UROLOGY | [phone] | Fax: | | | | | | Fax: | [phone] | | | | | | [phone] | | +--------+--------+ + + + + Reason for Visit + + + | Reason | Comments | + + + | Catheter Problem | | + + + Encounter Details +--------+ + + + + | Date | Type | Department | Care Team | Description | +--------+ + + + + | 02/22/ | Emergency | [facility] Emergency | Fe Walter, | | | 2017 - | | Department [address] | Edith Kelley MD [address] | | | | | [facility] | [facility] | | | 02/23/ | | [facility] | [address], [place] | | | 2017 | | [place], [place] | [address] | | | | | [address] | | | | | | [phone] | | | +--------+ + + + [...] for coming to the Emergency Department at [facility] for your care. You were evaluated [...] other well. -Be careful about taking other hcam-elu-tyrbmxg medicines, which may contain acetaminophen or ibuprofen and could lead to toxicity. -If you have liver disease, kidney disease or stomach ulcers, the standard doses of these m edicines may be too high for you. -We expect that your pain will improve over the next few days, and do not expect that you w ill need to continue these medicines senior living. You should talk to your primary care [...] your primary care doctor for follow-up and [facility] care. Care delivered in the Emergency Department should not be considered as a substitute for [facility] care and/or specialist care for ongoing medical issues, and it is important that you fo llow up as described above. Thank you for letting us care for you at the [facility] Emergency Department today. Note: If you [...] [facility] | [address] | [place], [place] | | | ELISSA POINT OF CARE | [address] | [address] | | | TESTS | | | [...] [facility] | [address] | [place] [address] | | | SERVICES, CORE | [address] [...] [facility] | [address] | [place] [address] | | | NANCY MAX | DAHIANA [...] + | DIAL - AIRPORT - | [address] | [place] [address] | | | [place] | | | | + + + [...] [facility] | [address] | [place] [address] | | | NANCY MAX | DAHIANA [...] | + + + + + | [facility] | [address] | [place] [address] | | | NANCY MAX | DAHIANA [...] | + + + + + | [facility] | [address] | [place] [address] | | | MANSOOR, NANCY | DAHIANA [...] | + + + + + | [facility] | [address] | [place] [address] | | | SERVICES, CORE | DAHIANA [...] [facility] | [address] | [place] [address] | | | SERVICES, CORE | DAHIANA [...] | + + + + + | [facility] | [address] [facility] | [place] [address] | | | SERVICES, | [address] | | | | TRANSFUSION MEDICINE | | | | + + + + + ED INFORMATION EXCHANGE (02/22/2017 8:33 PM PDT) + + | Specimen | + + | | + + + + + | Narrative | Performed At | + + + | [id number] This patient has registered at the | [facility] | | [facility] Emergency Department For more | MEDICAL | | information visit: | TECHNOLOGIES | | [email or web address] | | | [email or web address] ED Care Guidelines from [facility] Last | | | Updated: 12/03/16 2:35 PM Care Coordination: ENCOURAGE PATIENT | | | TO USE PCP FOR FOLLOW UP AND NON-EMERGENT PROBLEMS. GIVE PATIENT THIS | | | CLINICAL MEDICAL TRANSCRIPTIONIST NAME AND NUMBER FOR HELP AND QUESTIONS. MARSHALL AMADOR ED | | | MULT AU MATIC OPERATOR [facility] [phone] These are guidelines | | | and the provider should exercise clinical judgment when providing | | | care. Care History Behavioral 12/03/16 12:00 AM [facility] | | | Hospital PT [facility] -- ATTN:IVONNE | | | [place] Medical/Surgical 11/03/14 12:00 AM [facility] | | | Hospital Smoker Methamphetamine abuse Recent Emergency | | | Department Visit Summary Admit Date Facility City State Type Major | | | Type Diagnoses or Chief Complaint Feb 22, 2017 [facility] | | | [facility] [place] Emergency Emergency 10,800. | | | Cath issue Feb 20, [address] [place] | | | Emergency Emergency dizzy Generalized Body Aches | | | Neuromuscular dysfunction of bladder, unspecified Feb 18, 2017 [facility] | | | [place] Emergency Emergency Other stimulant | | | abuse, uncomplicated Other senior living (current) drug therapy | | | Nicotine [...] unspecified Feb 16, 2017 | | | [facility] [place] Emergency Emergency Chief Complaint: | | | Urinary Problem Feb 03, 2017 [facility] | | | [place] Emergency Emergency Chief Complaint: URO MALE Jan | | | 2016 [facility] [place] Emergency | | | Emergency Bipolar disorder, unspecified Nicotine | | | dependence, cigarettes, uncomplicated Other stimulant | | | dependence, uncomplicated Dec 30, 2016 [facility] | | | [place]. [place] Emergency Emergency catheter issues Urinary | | | Catheter Insertion Other urethritis Retention of urine, | | | unspecified Other stimulant abuse, uncomplicated Dec 03, | | | 2016 [facility] [place] Emergency Emergency Bipolar | | | disorder, unspecified Schizoaffective disorder, unspecified | | | Other senior living (current) drug therapy Nicotine dependence, | | | unspecified, uncomplicated Anxiety disorder, unspecified | | | Allergy status to other antibiotic agents status Allergy status | | | to other drugs, medicaments and biological substances status | | | Other fatigue Delusional disorders Essential (primary) | | | hypertension Nov 24, 2016 [facility] [place] Emergency | | | Emergency Encounter for other general examination | | | Allergy status to other drugs, medicaments and biological substances | | | status Bipolar disorder, unspecified Other terminal carman | | | (current) drug therapy Major depressive disorder, single | | | episode, unspecified Essential (primary) hypertension | | | Recent Inpatient Visit Summary No recorded inpatient visits. | | | E.D. Visit Count (12 mo.) Facility Visits [facility] | | | System 2 [facility] [place] 1 [facility] | | | Center 1 [facility] 1 [facility] | | | Center 2 [facility] ED 1 [facility] 15 | | | Total 23 Note: Visits indicate total known visits. Care | | | Providers Provider PRC Type Phone Fax Service Dates Fam Donnelly, | | | MD TORI Primary Care Current [facility] | | | MENTAL HEALTH, Mental Health Provider ([id number]) | | | [phone] Nov 15, 2016 - Current Summer PAULINA Norman Case or Care | | | Intravenous Therapy Nurse Current The above | | | information is provided for the sole purpose of patient treatment. | | | Use of this information beyond the terms of Data Sharing Memorandum of | | | Understanding and License Agreement is prohibited. In certain cases | | | not all visits may be represented. Consult the aforementioned | | | facilities for additional information. 2017 [employer] | | | [employer] - [place], [place] - | | | [email or web address] | | + + + + + | Procedure Note | + + | Service Account, Rtf Results Inbound - 02/22/2017 8:34 PM PDT Formatting of this | | note might be different from the original.NIRANJAN?NOTIFICATION?02/22/2017 20:33?ROMERO, | | AALIYAH? patient has registered at the [facility] | | [place] Emergency Department For more information visit: | | [email or web address] ED Care | | [facility]: 12/03/16 2:35 PM Care | | Coordination:ENCOURAGE PATIENT TO USE PCP FOR FOLLOW UP AND NON-EMERGENT PROBLEMS.GIVE | | PATIENT THIS CLINICAL MEDICAL TRANSCRIPTIONIST NAME AND NUMBER FOR HELP AND QUESTIONS.MARSHALL AMADORED CASE | | EMBOSSING PRESS OPERATOR MOLDED GOODS [phone] are guidelines and the provider should | | exercise clinical judgment when providing care.Care HistoryBehavioral12/03/16 12:00 AM | | [facility] [employer] [facility] ATTN:? IVONNE | | CONKEYMedical/Surgical11/03/14 12:00 AM [facility] | | HospitalSmokerMethamphetamine abuseRecent Emergency Department Visit SummaryAdmit Date | | Facility City State Type Major Type Diagnoses or Chief Complaint Feb 22, 2017 [place] | | [facility] [place] Emergency Emergency 10,800. Cath issue Feb | | 2016 [place] Emergency Emergency dizzy Generalized | | Body Aches Neuromuscular dysfunction of bladder, unspecified Feb 18, [address] [facility] [address] | | [place] Emergency Emergency Other stimulant abuse, uncomplicated | | Other senior living (current) drug therapy Nicotine dependence, unspecified, | [...] Complaint: Urinary Problem Sep | | 2016 [facility] [place] Emergency Emergency Chief | | Complaint: URO MALE Jan 25, 2017 [facility] [place] Emergency | | Emergency Bipolar disorder, unspecified Nicotine dependence, cigarettes, | | uncomplicated Other stimulant dependence, uncomplicated Dec 30, 2016 [facility] | | [place]. [place] Emergency Emergency catheter issues Urinary Catheter | | Insertion Other urethritis Retention of urine, unspecified Other stimulant | | abuse, uncomplicated Dec 03, 2016 [place] [place] Emergency Emergency | | [...] hypertension Nov 24, 2016 [facility] | | [place] Emergency Emergency Encounter for other general examination | | Allergy status to other drugs, medicaments and biological substances status | | Bipolar disorder, unspecified Other terminal carman (current) drug therapy Major | | depressive disorder, single episode, unspecified Essential (primary) hypertension | | Recent Inpatient Visit SummaryNo recorded inpatient visits. E.D. Visit Count (12 | | mo.)Facility Visits [facility] 2 [facility] | | [address] [facility] 1 [facility] | | Medical [place] 2 [facility] ED 1 [facility] 15 Total 23 Note: | | Visits indicate total known visits. Care ProvidersProvider PRC Type Phone Fax Service | | Dates Fam Donnelly MD, Primary Care Current [facility] | | MENTAL HEALTH, Mental Health Provider Nov 15, 2016 - | | Current Summer PAULINA Norman Case or Certified Alcohol And Drug Counselor Current | | The above information is provided for the sole purpose of patient treatment. Use of this | | information beyond the terms of Data Sharing Memorandum of Understanding and License | | Agreement is prohibited. In certain cases not all visits may be represented. Consult the | | aforementioned facilities for additional information. ? 2017 [employer] | | [place] - [place], [place] - [email or web address] | | Nicotine dependence, cigarettes, uncomplicated | | Other stimulant dependence, uncomplicated | | | |Dec 30, 2016 [facility] [place]. [place] Emergency Emergency | | catheter issues | | Urinary Catheter Insertion | | Other urethritis | | Retention of urine, unspecified | | Other stimulant abuse, uncomplicated | | | |Dec 03[facility] [place] [place] [place] [facility] Emergency | | Bipolar disorder, unspecified | | Schizoaffective disorder, unspecified | | Other senior living (current) drug therapy | | Nicotine dependence, unspecified, uncomplicated | | Anxiety disorder, unspecified | | Allergy status to other antibiotic agents status | | Allergy status to other drugs, medicaments and biological substances status | | Other fatigue | | Delusional disorders | | Essential (primary) hypertension | | | |Nov 24, 2016 [facility] [place] Emergency Emergency | | Encounter for other general examination | | Allergy status to other drugs, medicaments and biological substances status | | Bipolar disorder, unspecified | | Other terminal carman (current) drug therapy | | Major depressive disorder, single episode, unspecified | | Essential (primary) hypertension | | | | | | | |Recent Inpatient Visit Summary | |No recorded inpatient visits. | | | |E.D. Visit Count (12 mo.) | |Facility Visits | |[facility] 2 | |[facility] 1 | |[facility] 1 | |[facility] 1 | |[facility] 2 | |[facility] ED 1 | |[facility] 15 | |Total 23 | |Note: Visits indicate total known visits. | | | |Care Providers | |Provider PRC Type Phone Fax Service Dates | |Fam Donnelly MD, MD Primary Care Current | |[facility] Mental Health Provider Nov 15, 2016 - Current | |PAULINA Orellana Case or Certified Alcohol And Drug Counselor Current | | | |The above information is provided for the sole purpose of patient treatment. Use of this in formation beyond the terms of Data Sharing Memorandum of Understanding and License Agreement is prohibited. In | |certain cases not all visits may be represented. Consult the aforementioned facilities for additional information. | |? 2017 [employer] - [place], [place] - | + + + + + + + | Performing | Address | City/State/Zipcode | Phone Number | | Organization | | | | + + + + + | [facility] | [address], | [place], [place] | [phone] | | TECHNOLOGIES | [address] | [address] | | + + + + + [...]
--- OUTSIDE RECORDS SUMMARY | ~2019-05-14 | XMS | Encounter Summary ---
Demographics + + + | Address | GENERAL DELIVERY | | | [place] [address] | + + + | Home Phone [...] Team Providers + +------+ + | Care Franchise Sales Representative Name | Role | Phone | [...] | | | | | | | [address] | | | | | | | Ave | | | | | | | [place], [place] | | | | | | | [address] | | | | | | | Phone: | | | | | | | [phone] | | | | | | | Fax: | | | | | | | [phone] | +--------+--------+ + + + + Encounter [...] | | | | Mailcode: CH10U | [place], [place] | | | | | [facility] | [address] | | | | | and Healing, | [phone] | | | | | | | | | | | Floor [facility] [place] | | | | | | [address] | | | | | | [phone] | | | +--------+ + + + [...] month Facility will likely change care to [place] due to distance. documented in this encounter Plan of Treatment Not on filedocumented as of this encounter Visit Diagnoses + + | Diagnosis | + + | Urinary retention - Primary Retention of urine, unspecified | + + documented in this encounter"
--- OUTSIDE RECORDS SUMMARY | ~2019-05-14 | XMS | Encounter Summary ---
Demographics + + + | Address | GENERAL DELIVERY | | | [place] [address] | + + + | Home Phone [...] Team Providers + +------+ + | Care Inclusion Special Education Teacher Name | Role | Phone | [...] + + | 06/19/ | Telephone | [facility] | Jeancarlos Marley MD | Pain | | 2014 | | [place] [address] [address] | [address] | | | | | [address] | [place], [place] | | | | | Mailcode: OC8D | [address] | | | | | [facility] | [phone] | | | | | and Healing, | | | | | | [address] | | | | | | [place], [place] | | | | | | [address] | | | | | | [phone] | | | +--------+ + + + [...]
--- OUTSIDE RECORDS SUMMARY | ~2019-05-14 | XMS | Encounter Summary ---
[...] Providers + +------+ + | Care Manager Spring Name | Role | Phone | + +------+ + PCP | Unavailable | + +------+ + Encounter Details +--------+ + + + + | Date | Type | Department | Care Team | Description | +--------+ + + + + | 12/27/ | Telephone | [facility] | Jeancarlos Marley MD | | | 2007 | | [place] [address] [address] | [address] | | | | [address] | [place], [place] | | | | | Mailcode: OC8D | [address] | | | | | [facility] | [phone] | | | | | and Healing, | | | | | | [address] | | | | | | [place], [place] | | | | | | [address] | | | | | | [phone] | | | +--------+ + + + [...]
--- OUTSIDE RECORDS SUMMARY | ~2019-05-14 | XMS | Encounter Summary ---
Demographics + + + | Address | GENERAL DELIVERY | | | [place] [address] | + + + | Home Phone [...] Team Providers + +------+ + | Care Elementary School Counselor Name | Role | Phone | + [...] Required | | hepatitis C | [address] | [address] [facility] | | | | | without | [address] | Ave | | | | | mention of | [place], | [place], [place] | | | | | hepatic coma | [place] [address] | [address] | | | | | Procedures | Phone: | Phone: | | | | | CONSULT TO | [phone] | [phone] | | | | | HEPATOLOGY | Fax: | Fax: | | | | | | [phone] | [phone] | +--------+ + + + + + Encounter Details +--------+---------+ + + + | Date | Type | Department | Care Team | Description | +--------+---------+ + + + | 06/16/ | Office | [facility] | Jeancarlos Marley MD | Chronic Hepatitis C | | 2008 | Visit | Center at [facility] [address] | [address] | without Mention of | | | | [address] | [place], [place] | Hepatic Coma | | | | Mailcode: OC8D | [address] | (Primary Dx) | | | | [facility] | [phone] | | | | | and Healing, | | | | | | [address] | | | | | | [place], [place] | | | | | | [address] | | | | | | [phone] | | | +--------+---------+ + + + [...] + + | Performing | Address | City/State/[facility]code | Phone Number | | Organization | [...] | | | | | determined bythe [facility] | | | | | [...] | | | | | Improvement Act [phone]. | | | | | | The [...] + + + + | [facility] | [facility] | [place] [address] | | | GENETICS LABS | [address] | | | | | AVE. [...] Iron and TIBC, Serum Test performed by [facility] | | | [facility]. | | + + + + + + + + | Performing | Address | City/State/Zipcode | Phone Number | | Organization | | | | + + + + + | [facility] | [address] | [place] [address] | | | LABORATORY | | | [...] | | | [facility] ([address] [facility]) [facility] | | | [address] [place], [place] | | | [address] | | + + + + + + + + | Performing | Address | City/State/Zipcode | Phone Number | | Organization | | | | + + + + + | [facility] | [address] | [place] [address] | | | LABORATORY | | | [...] + + + | Test performed by [facility]. | | + + + + + + + + | Performing | Address | City/State/Zipcode | Phone Number | | Organization | | | | + + + + + | [facility] | [address] | [place] [address] | | | LABORATORY | | | [...] by | | | | | | [facility] | | | | | | [facility]. | | | | + + + + + + + + | Specimen | + + | | + + + + + + + | Performing | Address | City/State/Zipcode | Phone Number | | Organization | | | | + + + + + | [facility] | [address] | [place] [address] | | | LABORATORY | | | [...] + | [facility] | [address] [facility] [address] | [place] [address] | | | PATHOLOGY | [address] | | | + + + + + | [facility] | [address] [facility] [address] [address] | [place] [address] | | | PATHOLOGY | [address] [...] | + + + + + | [facility] DEPARTMENT OF | [facility] | [place] [address] | | | PATHOLOGY | [address] | | | + + + + + | [facility] DEPARTMENT OF | [address] | [place] [address] | | | PATHOLOGY | [address] | | | + + + + + documented in this encounter Visit Diagnoses + + | Diagnosis | + + | Chronic hepatitis C without mention of hepatic coma - Primary | + + documented in this encounter
--- OUTSIDE RECORDS SUMMARY | ~2019-05-14 | XMS | Encounter Summary ---
Demographics + + + | Address | GENERAL DELIVERY | | | [place] [address] | + + + | Home Phone [...] Team Providers + +------+ + | Care Enterprise Application Administrator Name | Role | Phone | [...] Hepatitis C | | 2007 | | [place] [address] [address] | [address] | without Mention of | | | | [address] | [place], [place] | Hepatic Coma | | | | Mailcode: OC8D | [address] | (Primary Dx) | | | | [facility] | [phone] | | | | | and Healing, | | | | | | [address] | | | | | | [place], [place] | | | | | | [address] | | | | | | [phone] | | | +--------+ + + + [...] Performed At | + + + | [id number] Estimated GFR > 60 mL/min/1.73 sq m if non- | [facility] | | [id number] Estimated GFR > 60 mL/min/1.73 sq m [...] | + + + + + | [facility] DEPARTMENT | [address] | [place] [address] | | | PATHOLOGY | [address] | | | + + + + + | [facility] | [address] | [place] [address] | | | PATHOLOGY | [address] [...] | + + + + + | [facility] DEPARTMENT OF | [address] | [place] [address] | | | PATHOLOGY | [address] | | | + + + + + | [facility] | [facility] [address] | [place] [address] | | | PATHOLOGY | [address] [...] DEPARTMENT OF | [address] | [place] [address] | | | PATHOLOGY | [address] | | | + + + + + | [facility] DEPARTMENT OF | [address] | [place] [address] | | | PATHOLOGY | [address] [...] | + + + + + | [facility] | [address] [facility] | [place] [address] | | | PATHOLOGY | [address] | | | + + + + + | [facility] | [address] [facility] [facility] | [place] [address] | | | PATHOLOGY | [address] [...] | + + + + + | [facility] | [address] [facility] | [place] [address] | | | PATHOLOGY | [address] | | | + + + + + | [facility] | [address] [facility] | [place] [address] | | | PATHOLOGY | [address] [...] by | | | | | | [facility] | | | | | | Socialance. | | | | + + + + + + + + | Specimen | + + | | + + + + + + + | Performing | Address | City/State/Zipcode | Phone Number | | Organization | | | | + + + + + | [facility] | [address] | [place] [address] | | | LABORATORY | | | [...] + + | Test performed by [facility]. | | + + + + + + + + | Performing | Address | City/State/Zipcode | Phone Number | | Organization | | | | + + + + + | [facility] | [address] | [place] [address] | | | LABORATORY | | | [...] effective 03/08/07 | | | RLB ([facility]) [facility] | | | [address] [place], [place] | | | [address] | | + + + + + + + + | Performing | Address | City/State/Zipcode | Phone Number | | Organization | | | | + + + + + | [facility] | [address] | [place] [address] | | | LABORATORY | | | [...] Iron and TIBC, Serum Test performed by [facility] | | | [facility]. | | + + + + + + + + | Performing | Address | City/State/Zipcode | Phone Number | | Organization | | | | + + + + + | [facility] | [address] | [place] [address] | | | LABORATORY | | | [...] | | | | | determined bythe [facility] | | | | | [...] | | | | | Improvement Act [id number]. | | | | | | [facility] | | | | | | Laboratory is a fully | | | | | | licensed and/ | | | | | | oraccredited clinical | | | | | | laboratory under CLIA, | | | | | | [place], and the State of | | | | | | [place]. | | | | + + + + + + + + | Specimen | + + | | + + + + + + + | Performing | Address | City/State/Zipcode | Phone Number | | Organization | | | | + + + + + | [facility] | [address] | [place] [address] | | | [facility] | [address] | | | | | [place]. | | | + + + + + documented in this encounter Visit Diagnoses + + | Diagnosis | + + | Chronic hepatitis C without mention of hepatic coma - Primary | + + documented in this encounter
--- OUTSIDE RECORDS SUMMARY | ~2019-05-14 | XMS | Encounter Summary ---
Demographics + + + | Address | GENERAL DELIVERY | | | [place] [address] | + + + | Home Phone [...] Team Providers + +------+ + | Care Oral Health Therapist Name | Role | Phone | + [...] | | | | | | | [address] | | | | | | | [address] | | | | | | | [place], [place] | | | | | | | [address] | | | | | | | Phone: | | | | | | | [phone] | | | | | | | Fax: | | | | | | | [phone] | +--------+--------+ + + + + Encounter [...] | | | | Mailcode: CH10U | [place], [place] | | | | | [facility] | [address] | | | | | and Healing, | [phone] | | | | | | | | | | | Floor [facility] [place] | | | | | | [address] | | | | | | [phone] | | | +--------+ + + + [...] month Facility will likely change care to [place] due to distance. documented in this encounter Plan of Treatment Not on filedocumented as of this encounter Visit Diagnoses + + | Diagnosis | + + | Urinary retention - Primary Retention of urine, unspecified | + + documented in this encounter"
--- OUTSIDE RECORDS SUMMARY | ~2019-05-14 | XMS | Encounter Summary ---
Demographics + + + | Address | GENERAL DELIVERY | | | [place] [address] | + + + | Home Phone [...] Team Providers + +------+ + | Care Ditch Inspector Name | Role | Phone | [...] | Appointment | | 2009 | | [address] | [address] | | | | | Mailcode: CH10U | [place], [place] | | | | | [facility] | [address] | | | | | and Healing, | [phone] | | | | | | | | | | | Floor [place], [place] | | | | | | [address] | | | | | | [phone] | | | +--------+ + + + [...]
--- OUTSIDE RECORDS SUMMARY | ~2019-05-14 | XMS | Encounter Summary ---
Demographics + + + | Address | GENERAL DELIVERY | | | [place] [address] | + + + | Home Phone [...] Team Providers + +------+ + | Care Ground Helper [address] Railway Name | Role | Phone | + [...] Abdominal pain | | 2008 | | [place] [address] | [address] | | | | | [address] | [place], [place] | | | | | Mailcode: OC8D | [address] | | | | | [facility] | [phone] | | | | | and [place], | | | | | | [address] | | | | | | [place], [place] | | | | | | [address] | | | | | | [phone] | | | +--------+ + + + [...]
--- OUTSIDE RECORDS SUMMARY | ~2019-05-14 | XMS | Encounter Summary ---
Demographics + + + | Address | GENERAL DELIVERY | | | [place] [address] | + + + | Home Phone [...] Team Providers + +------+ + | Care Draw Fire Operator Name | Role | Phone | [...] Abdominal pain | | 2008 | | [place] [address] | [address] | | | | | [address] | [place], [place] | | | | | Mailcode: OC8D | [address] | | | | | [facility] | [phone] | | | | | and [place], | | | | | | [address] | | | | | | [place], [place] | | | | | | [address] | | | | | | [phone] | | | +--------+ + + + [...]
--- OUTSIDE RECORDS SUMMARY | ~2019-05-14 | XMS | Encounter Summary ---
Demographics + + + | Address | GENERAL DELIVERY | | | [place] [address] | + + + | Home Phone [...] Team Providers + +------+ + | Care Front Desk Worker Name | Role | Phone | + +------+ + | Lakesha River | PCP | | + +------+ + Encounter Details +--------+------+ + + + | Date | Type | Department | Care Team | Description | +--------+------+ + + + | 02/27/ | Lab | Laboratory at [facility] | | Chronic Hepatitis C | | 2007 | | [address] | | without Mention of | | | | [place], [place] | | Hepatic Coma | | | | [address] | | | | | | [phone] | | | +--------+------+ + + + [...] documented in this encounter Results [facility] - INR (PROTHROMBINTIME) (02/28/2008 9:24 [...] | [facility] DEPARTMENT OF | [address] | [place] [address] | | | PATHOLOGY | [address] | | | + + + + + | [facility] DEPARTMENT OF | [address] | [place] [address] | | | PATHOLOGY | [address] [...] + | [facility] DEPARTMENT | [address] | [place] [address] | | | PATHOLOGY | [address] | | | + + + + + | [facility] | [address] | [place] [address] | | | PATHOLOGY | [address] | | | + + + + + [facility] - COMPLETE METABOLIC SET (02/28/2008 [...] DEPARTMENT OF | [address] | [place] [address] | | | PATHOLOGY | [address] | | | + + + + + | [facility] DEPARTMENT OF | [address] | [place] [address] | | | PATHOLOGY | [address] | | | + + + + + documented in this encounter Visit Diagnoses + + | Diagnosis | + + | Chronic hepatitis C without mention of hepatic coma | + + documented in this encounter"
--- OUTSIDE RECORDS SUMMARY | ~2019-05-14 | XMS | Encounter Summary ---
Demographics + + + | Address | GENERAL DELIVERY | | | [place] [address] | + + + | Home Phone [...] | | | | Mailcode: CH10U | [place], [place] | | | | | [facility] | [address] | | | | | and [place], | [phone] | | | | | [facility] | | | | | | Floor [place], [place] | | | | | | [address] | | | | | | [phone] | | | +--------+ + + + [...]
--- OUTSIDE RECORDS SUMMARY | ~2019-05-14 | XMS | Encounter Summary ---
Demographics + + + | Address | GENERAL DELIVERY | | | [place] [address] | + + + | Home Phone [...] Team Providers + +------+ + | Care Barge Captain Name | Role | Phone | + [...] Abdominal pain | | 2007 | | [place] [address] | [address] | (liver pain) | | | | [address] | [place], [place] | | | | | Mailcode: OC8D | [address] | | | | | [facility] | [phone] | | | | | and Healing, | | | | | | [address] | | | | | | [place], [place] | | | | | | [address] | | | | | | [phone] | | | +--------+ + + + [...] | + + + + + | [facility] DEPARTMENT OF | [address] [facility] | [place] [address] | | | PATHOLOGY | [address] | | | + + + + + | [facility] DEPARTMENT OF | [address] [facility] | [place] [address] | | | PATHOLOGY | [address] [...] | + + + + + | [facility] | [address] [facility] | [place] [address] | | | PATHOLOGY | [address] | | | + + + + + | [facility] | [address] [facility] | [place] [address] | | | PATHOLOGY | [address] [...] Performed At | + + + | [id number] Estimated GFR > 60 mL/min/1.73 sq m if non- | [facility] | | [place] [id number] Estimated GFR > 60 mL/min/1.73 sq m if | DEPARTMENT OF | | [place] GFR is estimated using the MDRD equation [...] | + + + + + | [facility] | [address] [facility] | [place] [address] | | | PATHOLOGY | [address] | | | + + + + + | [facility] | [address] | [place] [address] | | | PATHOLOGY | [address] [...] spleen | | | | | | ahooovkq42.5 cm in | | | | | [...] | | + +---------+ + + | [facility] DEPARTMENT OF | | | | | [...]
--- OUTSIDE RECORDS SUMMARY | ~2019-05-14 | XMS | Encounter Summary ---
Demographics + + + | Address | GENERAL DELIVERY | | | [place] [address] | + + + | Home Phone [...] Team Providers + +------+ + | Care Online Media Director Name | Role | Phone | [...] | | | | | [address] | [place], [place] | | | | | [facility] | [address] | | | | | (MNP/OLD [facility]) | [phone] | | | | | [place], [place] | | | | | | [address] | | | | | | [phone] | | | +--------+ + + + [...] Discharge Instructions Instructions Katie Kuo RN - 02/14/2011[facility] Care After Reyna Catheter & [...] from 8:00 4:30, call the Urology Clinic [phone]. After hours, weekend and holidays call the Hospital Business Services Sales Representative at [phone]. Ask for them to page your doctor. Your doctor is RETURN APPOINTMENT Pre-Scheduled for March 31, 2011 @ 10:45 AM Call the Urology clinic to confirm this appointment . Urology Clinic [phone] Please call the clinic if you need [...]
--- OUTSIDE RECORDS SUMMARY | ~2019-05-14 | XMS | Encounter Summary ---
Demographics + + + | Address | GENERAL DELIVERY | | | [place] [address] | + + + | Home Phone [...] Providers + +------+ + | Care Supervisor Machine Setter Name | Role | Phone | + [...] | | | PROVIDER PER | CH10U [facility] | | | | | | PT | for Health | | | | | | | and Healing, | | | | | | | Building [address], | | | | | | | 10th Floor | | | | | | | [place], [place] | | | | | | | [address] | | | | | | | Phone: | | | | | | | [phone] | | | | | | | Fax: | | | | | | | [phone] | +--------+--------+ + + + + Encounter [...] | | | Mailcode: CH10U | [facility] [place] | | | | | [facility] | [address] | | | | | and Healing, | [phone] | | | | | [facility] | | | | | | Floor [place], [place] | | | | | | [address] | | | | | | [phone] | | | +--------+---------+ + + + [...] PDT12 days s/p open suprapubic cystostomy for truer pinion and wheel 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 Has had ER visits [...] out of wound for easy remov al/change [facility] present and packing reviewed. A/P: Wound [...]
--- OUTSIDE RECORDS SUMMARY | ~2019-05-14 | XMS | Encounter Summary ---
Demographics + + + | Address | GENERAL DELIVERY | | | [place] [address] | + + + | Home Phone [...] Team Providers + +------+ + | Care Engraver Steel Plate Name | Role | Phone | + +------+ + | Etienne Barnes PA-C | PCP | | + +------+ + Encounter Details +--------+ + + + + | Date | Type | Department | Care Team | Description | +--------+ + + + + | 06/15/ | Document-Sc | UNKNOWN DEPARTMENT | Unknown . | | | 2014 | anned | [address] [facility] | | | | | | [address] | | | | | | [place], [place] | | | | | | [address] | | | +--------+ + + + [...]
--- OUTSIDE RECORDS SUMMARY | ~2019-05-14 | XMS | Encounter Summary ---
Demographics + + + | Address | GENERAL DELIVERY | | | [place] [address] | + + + | Home Phone [...] Team Providers + +------+ + | Care Hopper Operator Name | Role | Phone | + +------+ + | Etienne Barnes PA-C | PCP | | + +------+ + Encounter Details +--------+ + + + + | Date | Type | Department | Care Team | Description | +--------+ + + + + | 09/14/ | Document-Sc | UNKNOWN DEPARTMENT | Unknown . | | | 2014 | anned | [address] [facility] | | | | | | [address] | | | | | | [place], [place] | | | | | | [address] | | | +--------+ + + + [...]
--- OUTSIDE RECORDS SUMMARY | ~2019-05-14 | XMS | Encounter Summary ---
Demographics + + + | Address | GENERAL DELIVERY | | | [place] [address] | + + + | Home Phone [...] Team Providers + +------+ + | Care Genetic Scientist Name | Role | Phone | [...] | 2007 | | Center at [facility] [address] | [address] | your call.) | | | | [address] | [place], [place] | | | | | Mailcode: OC8D | [address] | | | | | [facility] | [phone] | | | | | and Healing, | | | | | | [address] | | | | | | [place], [place] | | | | | | [address] | | | | | | [phone] | | | +--------+ + + + [...]
--- OUTSIDE RECORDS SUMMARY | ~2019-05-14 | XMS | Encounter Summary ---
Demographics + + + | Address | GENERAL DELIVERY | | | [place] [address] | + + + | Home Phone [...] Team Providers + +------+ + | Care Asbestos Textile Supervisor Name | Role | Phone | [...] | | | Mailcode: CH10U | [place], [place] | | | | | [facility] | [address] | | | | | and Healing, | [phone] | | | | | [facility] | | | | | | Floor [place], [place] | | | | | | [address] | | | | | | [phone] | | | +--------+ + + + [...]
--- OUTSIDE RECORDS SUMMARY | ~2019-05-14 | XMS | Encounter Summary ---
Demographics + + + | Address | GENERAL DELIVERY | | | [place] [address] | + + + | Home Phone [...] Team Providers + +------+ + | Care Packaging Tech Name | Role | Phone | + +------+ + | Etienne Barnes PA-C | PCP | | + +------+ + Encounter Details +--------+ + + + + | Date | Type | Department | Care Team | Description | +--------+ + + + + | 06/07/ | Document-Sc | UNKNOWN DEPARTMENT | Unknown . | | | 2014 | anned | [address] [facility] | | | | | | [address] | | | | | | [place], [place] | | | | | | [address] | | | +--------+ + + + [...]
--- OUTSIDE RECORDS SUMMARY | ~2019-05-14 | XMS | Encounter Summary ---
Demographics + + + | Address | GENERAL DELIVERY | | | [place] [address] | + + + | Home Phone [...] Team Providers + +------+ + | Care Peer Health Promoter Name | Role | Phone | + [...] | | | | | HOSPITAL | [place], [place] | | | | | | [address] | [address] | | | | | | [address] | Phone: | | | | | | [place], [place] | [phone] | | | | | | [address] | Fax: | | | | | | Phone: | [phone] | | | | | | [phone] | | | | | | | Fax: | | | | | | | [phone] | | +--------+--------+ + + + + [...] | | | | Mailcode: CH10U | [place], [place] | Voiding dysfunction | | | | [facility] | [address] | | | | | and Healing, | [phone] | | | | | Building | | | | | | Floor [place], [place] | | | | | | [address] | | | | | | [phone] | | | +--------+---------+ + + + [...] He is currently an inpatient in the [facility] for schizo-affective disorder. Since the [...] Lab) | | | | | | [facility] | | | | | | [address] | | | [address] | | | | | | [place] [address] | | | | | | [place] [address] | | | | + + + + + + + + | Specimen | + + | Urine - Catheter - | | single | + + + + + + + | Performing | Address | City/State/Zipcode | Phone Number | | Organization | | | | + + + + + | [facility] | [address] | [place] [address] | | | LAB-MICRO | | | | + + + + + documented in this encounter Visit Diagnoses + + | Diagnosis | + + | Retention of urine, unspecified | + + | Voiding dysfunction Unspecified disorder of urethra and urinary tract | + + documented in this encounter
--- OUTSIDE RECORDS SUMMARY | ~2019-05-14 | XMS | Encounter Summary ---
Demographics + + + | Address | GENERAL DELIVERY | | | [place] [address] | + + + | Home Phone [...] Providers + +------+ + | Care Office Helper Name | Role | Phone | + +------+ + | Etienne Barnes PA-C | PCP | | + +------+ + Encounter Details +--------+ + + + + | Date | Type | Department | Care Team | Description | +--------+ + + + + | 06/07/ | Document-Sc | UNKNOWN DEPARTMENT | Unknown . | | | 2014 | anned | [address] [facility] | | | | | | [address] | | | | | | [place], [place] | | | | | | [address] | | | +--------+ + + + [...]
--- OUTSIDE RECORDS SUMMARY | ~2019-05-14 | XMS | Encounter Summary ---
Demographics + + + | Address | GENERAL DELIVERY | | | [place] [address] | + + + | Home Phone [...] Team Providers + +------+ + | Care Scrap Baller Name | Role | Phone | + +------+ + PCP | Unavailable | + +------+ + Reason for Visit +--------+ + | Reason | Comments | +--------+ + | Pain | | +--------+ + Encounter Details +--------+ + + + + | Date | Type | Department | Care Team | Description | +--------+ + + + + | 06/19/ | Telephone | [facility] | Jeancarlos Marley MD | Pain | | 2014 | | [place] [address] | [address] | | | | | [address] | [place], [place] | | | | | Mailcode: OC8D | [address] | | | | | [facility] | [phone] | | | | | and Healing, | | | | | | [address] | | | | | | [place], [place] | | | | | | [address] | | | | | | [phone] | | | +--------+ + + + [...]
--- OUTSIDE RECORDS SUMMARY | ~2019-05-14 | XMS | Encounter Summary ---
Demographics + + + | Address | GENERAL DELIVERY | | | [place] [address] | + + + | Home Phone [...] Team Providers + +------+ + | Care Cmm Inspector Name | Role | Phone | [...] | | | | Mailcode: CH10U | [place], [place] | | | | | [facility] | [address] | | | | | and [place], | [phone] | | | | | [facility] | | | | | | Floor [place], [place] | | | | | | [address] | | | | | | [phone] | | | +--------+ + + + [...]
--- OUTSIDE RECORDS SUMMARY | ~2019-05-14 | XMS | Clinical Summary ---
Demographics + + + | Address | [address] | | | [place] [address] | + + + | Home Phone | | + + + | Preferred Language | Unknown | + + + | Marital Status | | + + + | Christian Affiliation | Unknown | + + + | Race | Unknown | + + + | Ethnic Group | Unknown | + + + Author + + + | Author | [facility] (Historical as of | | | 01-01-19) | + + + | Organization | [facility] (Historical as of | | | 01-01-19) [...] Team Providers + +------+ + | Care Green End Department Supervisor Name | Role | Phone | [...]
--- OUTSIDE RECORDS SUMMARY | ~2019-05-14 | XMS | Encounter Summary ---
Demographics + + + | Address | GENERAL DELIVERY | | | [place] [address] | + + + | Home Phone [...] Team Providers + +------+ + | Care Cupola Worker Name | Role | Phone | + +------+ + | Lakesha River | PCP | | + +------+ + Encounter Details +--------+------+ + + + | Date | Type | Department | Care Team | Description | +--------+------+ + + + | 02/27/ | Lab | Laboratory at [facility] | | Chronic Hepatitis C | | 2007 | | [address] | | without Mention of | | | | [place], [place] | | Hepatic Coma | | | | [address] | | | | | | [phone] | | | +--------+------+ + + + [...] + + documented in this encounter Results [facility] - INR (PROTHROMBINTIME) (02/28/2008 9:24 AM [...] + + + + + | [facility] DEPARTMENT OF | [address] | [place] [address] | | | PATHOLOGY | [address] | | | + + + + + | [facility] DEPARTMENT OF | [address] | [place] [address] | | | PATHOLOGY | [address] [...] + + + + + | [facility] DEPARTMENT | [address] [facility] | [place] [address] | | | PATHOLOGY | [address] | | | + + + + + | [facility] | [address] [facility] | [place] [address] | | | PATHOLOGY | [address] | | | + + + + + [facility] - COMPLETE METABOLIC SET (02/28/2008 9:24 [...] DEPARTMENT OF | [address] | [place] [address] | | | PATHOLOGY | [address] | | | + + + + + | [facility] DEPARTMENT OF | [address] | [place] [address] | | | PATHOLOGY | [address] | | | + + + + + documented in this encounter Visit Diagnoses + + | Diagnosis | + + | Chronic hepatitis C without mention of hepatic coma | + + documented in this encounter"
--- OUTSIDE RECORDS SUMMARY | ~2019-05-14 | XMS | Encounter Summary ---
Demographics + + + | Address | GENERAL DELIVERY | | | [place] [address] | + + + | Home Phone [...] Team Providers + +------+ + | Care Bee Worker Name | Role | Phone | [...] Lab Order | | 2014 | | [place] [facility] [address] | [address] | | | | [address] | [facility] [place] | | | | | Mailcode: OC8D | [address] | | | | | [facility] | [phone] | | | | | and Healing, | | | | | | [address] | | | | | | [place], [place] | | | | | | [address] | | | | | | [phone] | | | +--------+ + + + [...]
--- OUTSIDE RECORDS SUMMARY | ~2019-05-14 | XMS | Encounter Summary ---
Demographics + + + | Address | GENERAL DELIVERY | | | [place] [address] | + + + | Home Phone [...] Providers + +------+ + | Care Field Artillery Officer Name | Role | Phone | + +------+ + PCP | Unavailable | + +------+ + Encounter Details +--------+ + + + + | Date | Type | Department | Care Team | Description | +--------+ + + + + | 12/27/ | Telephone | [facility] | Jeancarlos Marley MD | | | 2007 | | [place] [address] [address] | [address] | | | | | [address] | [place], [place] | | | | | Mailcode: OC8D | [address] | | | | | [facility] | [phone] | | | | | and Healing, | | | | | | [address] | | | | | | [place], [place] | | | | | | [address] | | | | | | [phone] | | | +--------+ + + + [...]
--- OUTSIDE RECORDS SUMMARY | ~2019-05-14 | XMS | Clinical Summary ---
Demographics + + + | Address | [address] | | | [place] [address] | + + + | Home Phone | | + + + | Preferred Language | Unknown | + + + | Marital Status | | + + + | Jehovah'S Witness Affiliation | Unknown | + + + | Race | Unknown | + + + | Ethnic Group | Unknown | + + + Author + + + | Author | [facility] (Historical as of | | | 01-01-19) | + + + | Organization | [facility] (Historical as of | | | 01-01-19) [...] Providers + +------+ + | Care Technical Services Manager Name | Role | Phone [...]
--- OUTSIDE RECORDS SUMMARY | ~2019-05-14 | XMS | Encounter Summary ---
Demographics + + + | Address | GENERAL DELIVERY | | | [place] [address] | + + + | Home Phone [...] Team Providers + +------+ + | Care Stacking Machine Operator Name | Role | Phone [...] Required | | hepatitis C | [address] | [address] | | | | | without | [address] | Ave | | | | | mention of | [place]n [place], | [place], [place] | | | | | hepatic coma | [place] [address] | [address] | | | | | Procedures | Phone: | Phone: | | | | | CONSULT TO | [phone] | [phone] | | | | | HEPATOLOGY | Fax: | Fax: | | | | | | [phone] | [phone] | +--------+ + + + + + Encounter Details +--------+---------+ + + + | Date | Type | Department | Care Team | Description | +--------+---------+ + + + | 02/27/ | Office | Digestive Health | Jeancarlos Rich MD | Chronic Hepatitis C | | 2007 | Visit | Center at [facility] [address] | [address] | without Mention of | | | | [address] | [place], [place] | Hepatic Coma | | | | Mailcode: OC8D | [address] | (Primary Dx) | | | | [facility] | [phone] | | | | | and Healing, | | | | | | Building 2 | | | | | | [place], [place] | | | | | | [address] | | | | | | [phone] | | | +--------+---------+ + + + [...] on filedocumented as of this encounter Results [facility] - INR (PROTHROMBINTIME) (02/28/2008 9:24 [...] | [facility] | [address] [facility] | [place] [address] | | | PATHOLOGY | [address] | | | + + + + + | [facility] | [address] [place] [address] | [place] [address] | | | PATHOLOGY | [address] [...] | [facility] | [address] [facility] | [place] [address] | | | PATHOLOGY | [address] | | | + + + + + | [facility] | [address] [place] [address] | [place] [address] | | | PATHOLOGY | [address] [...] DEPARTMENT OF | [address] | [place] [address] | | | PATHOLOGY | [address] | | | + + + + + | [facility] | [address] | [place] [address] | | | PATHOLOGY | [address] | | | + + + + + documented in this encounter Visit Diagnoses + + | Diagnosis | + + | Chronic hepatitis C without mention of hepatic coma - Primary | + + documented in this encounter"
--- OUTSIDE RECORDS SUMMARY | ~2019-05-14 | XMS | Encounter Summary ---
Demographics + + + | Address | GENERAL DELIVERY | | | [place] [address] | + + + | Home Phone [...] Team Providers + +------+ + | Care Barn And Property Manager Name | Role | Phone | [...] | | | | Mailcode: CH10U | [place], [place] | | | | | [facility] | [address] | | | | | and Healing, | [phone] | | | | | [facility] | | | | | | Floor [place], [place] | | | | | | [address] | | | | | | [phone] | | | +--------+ + + + [...]
--- OUTSIDE RECORDS SUMMARY | ~2019-05-14 | XMS | Encounter Summary ---
Demographics + + + | Address | GENERAL DELIVERY | | | [place] [address] | + + + | Home Phone [...] Providers + +------+ + | Care Oil Tester Name | Role | Phone | [...] | | | | Mailcode: CH10U | [place], [place] | | | | | [facility] | [address] | | | | | and Healing, | [phone] | | | | | Building | | | | | | Floor [place], [place] | | | | | | [address] | | | | | | [phone] | | | +--------+ + + + [...]
--- OUTSIDE RECORDS SUMMARY | ~2019-05-14 | XMS | Encounter Summary ---
Demographics + + + | Address | GENERAL DELIVERY | | | [place] [address] | + + + | Home Phone [...] Providers + +------+ + | Care Fruit Grower Name | Role | Phone | + [...] | abdominal | [address] | [address] | | | | | pain | [facility] | Ave | | | | | Neurogenic | Rd | [facility] [place] | | | | | bladder | [facility] [place] | [address] | | | | | Procedures | [address] | Phone: | | | | | CONSULT TO | Phone: | [phone] | | | | | UROLOGY | [phone] | Fax: | | | | | | Fax: | [phone] | | | | | | [phone] | | +--------+--------+ + + + + Reason for Visit + + + | Reason | Comments | + + + | Catheter Problem | | + + + Encounter Details +--------+ + + + + | Date | Type | Department | Care Team | Description | +--------+ + + + + | 02/22/ | Emergency | [facility] Emergency | Fe Walter, | | | 2017 - | | Department [address] | Edith Kelley MD [address] | | | | | [facility] | [facility] | | | 02/23/ | | [facility] | [address], [place] | | | 2017 | | [place] | [address] | | | | | [address] | | | | | | [phone] | | | +--------+ + + + [...] for coming to the Emergency Department at [facility] for your care. You were evaluated [...] other well. -Be careful about taking other krhj-vst-pkevaps medicines, which may contain acetaminophen or ibuprofen and could lead to toxicity. -If you have liver disease, kidney disease or stomach ulcers, the standard doses of these m edicines may be too high for you. -We expect that your pain will improve over the next few days, and do not expect that you w ill need to continue these medicines residential. You should talk to your primary care [...] your primary care doctor for follow-up and [facility]. Care delivered in the Emergency Department should not be considered as a substitute for [facility] care and/or specialist care for ongoing medical issues, and it is important that you fo llow up as described above. Thank you for letting us care for you at the [facility] Emergency Department today. Note: If you [...] [facility] | [address] | [place], [place] | | | [facility]ISSA POINT OF CARE | [address] | [address] | | | TESTS | | | [...] [facility] | [address] | [place] [address] | | | SERVICES, CORE | [address] [...] [facility] | [address] | [place] [address] | | | NANCY MAX | [address] [...] + | DIAL - AIRPORT - | [address] | [place] [address] | | | [place] | | | | + + + [...] [facility] | [address] | [place] [address] | | | NANCY MAX | [address] [...] | + + + + + | [facility] | [address] | [place] [address] | | | NANCY MAX | [address] [...] | + + + + + | [facility] | [address] | [place] [address] | | | MANSOOR, NANCY | [address] [...] | + + + + + | [facility] | [address] | [place] [address] | | | SERVICES, CORE | [address] [...] [facility] | [address] | [place] [address] | | | SERVICES, CORE | [address] [...] | + + + + + | [facility] | [address] [facility] | [place] [address] | | | SERVICES, | [address] | | | | TRANSFUSION MEDICINE | | | | + + + + + ED INFORMATION EXCHANGE (02/22/2017 8:33 PM PDT) + + | Specimen | + + | | + + + + + | Narrative | Performed At | + + + | [id number] This patient has registered at the | [facility] | | [facility] Emergency Department For more | MEDICAL | | information visit: | TECHNOLOGIES | | [email or web address] | | | [id number] ED Care Guidelines from [facility] Last | | | Updated: 12/03/16 2:35 PM Care Coordination: ENCOURAGE PATIENT | | | TO USE PCP FOR FOLLOW UP AND NON-EMERGENT PROBLEMS. GIVE PATIENT THIS | | | CUSTOMER ACCOUNTS ADVISOR NAME AND NUMBER FOR HELP AND QUESTIONS. MARSHALL AMADOR ED | | | GATE CLERK [facility] [phone] These are guidelines | | | and the provider should exercise clinical judgment when providing | | | care. Care History Behavioral 12/03/16 12:00 AM [facility] | | | Hospital PT IS [facility]ING [facility] -- ATTN:IVONNE | | | [place] Medical/Surgical 11/03/14 12:00 AM [facility] | | | Hospital Smoker Methamphetamine abuse Recent Emergency | | | Department Visit Summary Admit Date Facility City State Type Major | | | Type Diagnoses or Chief Complaint Feb 22, 2017 [facility] and | | | [facility] [place] Emergency Emergency 10,800. | | | Cath issue Feb 20, [address] [place]. [place] | | | Emergency Emergency dizzy Generalized Body Aches | | | Neuromuscular dysfunction of bladder, unspecified Feb 18, 2017 [facility] | | | [place] Emergency Emergency Other stimulant | | | abuse, uncomplicated Other residential (current) drug therapy | | | Nicotine [...] | | | [facility] Rajivme [place] Emergency Emergency Chief Complaint: | | | Urinary Problem Feb 03, 2017 [facility] | | | [place] Emergency Emergency Chief Complaint: URO MALE Jan | | | 2016 [facility] [place] Emergency | | | Emergency Bipolar disorder, unspecified Nicotine | | | dependence, cigarettes, uncomplicated Other stimulant | | | dependence, uncomplicated Dec 30, 2016 [facility] | | | [place] Emergency Emergency catheter issues Urinary | | | Catheter Insertion Other urethritis Retention of urine, | | | unspecified Other stimulant abuse, uncomplicated Dec 03, | | | 2016 [facility] [place] Emergency Emergency Bipolar | | | disorder, unspecified Schizoaffective disorder, unspecified | | | Other residential (current) drug therapy Nicotine dependence, | | | unspecified, uncomplicated Anxiety disorder, unspecified | | | Allergy status to other antibiotic agents status Allergy status | | | to other drugs, medicaments and biological substances status | | | Other fatigue Delusional disorders Essential (primary) | | | hypertension Nov 24, 2016 [facility] [place] Emergency | | | Emergency Encounter for other general examination | | | Allergy status to other drugs, medicaments and biological substances | | | status Bipolar disorder, unspecified Other operations supervisor | | | (current) drug therapy Major depressive disorder, single | | | episode, unspecified Essential (primary) hypertension | | | Recent Inpatient Visit Summary No recorded inpatient visits. | | | E.D. Visit Count (12 mo.) Facility Visits [facility] | | | System 2 [facility] and [facility] [place] 1 [facility] | | | Center 1 [facility] 1 [facility] | | | Center [address] [facility] ED 1 [facility] 15 | | | Total 23 Note: Visits indicate total known visits. Care | | | Providers Provider PRC Type Phone Fax Service Dates Fam Donnelly, | | | MD TORI Primary Care Current [facility] | | | MENTAL HEALTH, Mental Health Provider ([phone]) | | | [phone] Nov 15, 2016 - Current Summer PAULINA Norman Case or Care | | | Glue Machine Operator Current The above | | | information is provided for the sole purpose of patient treatment. | | | Use of this information beyond the terms of Data Sharing Memorandum of | | | Understanding and License Agreement is prohibited. In certain cases | | | not all visits may be represented. Consult the aforementioned | | | facilities for additional information. 2017 [employer] | | | [employer] - [place], [place] - | | | [email or web address] | | + + + + + | Procedure Note | + + | Service Account, Rtf Results Inbound - 02/22/2017 8:34 PM PDT Formatting of this | | note might be different from the original.NIRANJAN?NOTIFICATION?02/22/2017 20:33?ROMERO, | | AALIYAH? patient has registered at the [facility] and [employer] | | [place] Emergency Department For more information visit: | | [email or web address] ED Care | | [facility] Updated: 12/03/16 2:35 PM Care | | Coordination:ENCOURAGE PATIENT TO USE PCP FOR FOLLOW UP AND NON-EMERGENT PROBLEMS.GIVE | | PATIENT THIS CUSTOMER ACCOUNTS ADVISOR NAME AND NUMBER FOR HELP AND QUESTIONS.MARSHALL AMADORED CASE | | CLASS B TRUCK DRIVER [phone] are guidelines and the provider should | | exercise clinical judgment when providing care.Care HistoryBehavioral12/03/16 12:00 AM | | [facility] [employer] -- ATTN:? IVONNE | | CONKEYMedical/Surgical11/03/14 12:00 AM [facility] | | HospitalSmokerMethamphetamine abuseRecent Emergency Department Visit SummaryAdmit Date | | Facility City State Type Major Type Diagnoses or Chief Complaint Feb 22, 2017 [place] | | [facility] and [facility] [place] Emergency Emergency 10,800. Cath issue Feb | | 2016 [place] Emergency Emergency dizzy Generalized | | Body Aches Neuromuscular dysfunction of bladder, unspecified Feb 18, [address] | | [place] Emergency Emergency Other stimulant abuse, uncomplicated | | Other residential (current) drug therapy Nicotine dependence, unspecified, | | uncomplicated Anxiety disorder, unspecified Foreign body in bladder, initial | | encounter Bipolar disorder, unspecified Allergy status to other drugs, medicaments | | and biological substances status Other nonmedicinal substance allergy status | | Allergy status to other antibiotic agents status Hematuria, unspecified Feb 16, 2017 | | [place] Emergency Emergency Chief Complaint: Urinary Problem Sep | | 2016 [facility] [place] Emergency Emergency Chief | | Complaint: URO MALE Jan 25, 2017 [facility] [place] Emergency | | Emergency Bipolar disorder, unspecified Nicotine dependence, cigarettes, | | uncomplicated Other stimulant dependence, uncomplicated Dec 30, 2016 [facility]ph[facility] Michelle | | [place]. [place] Emergency Emergency catheter issues Urinary Catheter | | Insertion Other urethritis Retention of urine, unspecified Other stimulant | | abuse, uncomplicated Dec 03, 2016 [facility] [place] Emergency Emergency | | [...] hypertension Nov 24, 2016 [facility] | | [place] Emergency Emergency Encounter for other general examination | | Allergy status to other drugs, medicaments and biological substances status | | Bipolar disorder, unspecified Other operations supervisor (current) drug therapy Major | | depressive disorder, single episode, unspecified Essential (primary) hypertension | | Recent Inpatient Visit SummaryNo recorded inpatient visits. E.D. Visit Count (12 | | mo.)Facility Visits [facility] 2 [facility] | | [address] 1 [facility] 1 [facility] | | [facility] 1 [facility] 15 Total 23 Note: | | Visits indicate total known visits. Care ProvidersProvider PRC Type Phone Fax Service | | Dates Fam Donnelly MD, Primary Care Current [facility] | | MENTAL HEALTH, Mental Health Provider Nov 15, 2016 - | | Current Summer PAULINA Norman Case or Revers[employer] Mill Roller Current | | The above information is provided for the sole purpose of patient treatment. Use of this | | information beyond the terms of Data Sharing Memorandum of Understanding and License | | Agreement is prohibited. In certain cases not all visits may be represented. Consult the | | aforementioned facilities for additional information. ? 2017 [employer] | | [employer] - [place], [place] - [email or web address] | | Nicotine dependence, cigarettes, uncomplicated | | Other stimulant dependence, uncomplicated | | | |Dec 30, 2016 [facility] [place]ie [place]. [place] Emergency Emergency | | catheter issues | | Urinary Catheter Insertion | | Other urethritis | | Retention of urine, unspecified | | Other stimulant abuse, uncomplicated | | | |Dec 03, 2016 [facility] [place] Emergency Emergency | | Bipolar disorder, unspecified | | Schizoaffective disorder, unspecified | | Other residential (current) drug therapy | | Nicotine dependence, unspecified, uncomplicated | | Anxiety disorder, unspecified | | Allergy status to other antibiotic agents status | | Allergy status to other drugs, medicaments and biological substances status | | Other fatigue | | Delusional disorders | | Essential (primary) hypertension | | | |Nov 24, 2016 [facility] [place] Emergency Emergency | | Encounter for other general examination | | Allergy status to other drugs, medicaments and biological substances status | | Bipolar disorder, unspecified | | Other operations supervisor (current) drug therapy | | Major depressive disorder, single episode, unspecified | | Essential (primary) hypertension | | | | | | | |Recent Inpatient Visit Summary | |No recorded inpatient visits. | | | |E.D. Visit Count (12 mo.) | |Facility Visits | |[facility] 2 | |[facility] and [facility] 1 | |[facility] 1 | |[facility] 1 | |[facility] 2 | |[facility] ED 1 | |[facility] 15 | |Total 23 | |Note: Visits indicate total known visits. | | | |Care Providers | |Provider PRC Type Phone Fax Service Dates | |Fam Donnelly MD, MD Primary Care Current | |[facility] Mental Health Provider Nov 15, 2016 - Current | |PAULINA Orellana Case or Reversing Mill Roller Current | | | |The above information is provided for the sole purpose of patient treatment. Use of this in formation beyond the terms of Data Sharing Memorandum of Understanding and License Agreement is prohibited. In | |certain cases not all visits may be represented. Consult the aforementioned facilities for additional information. | |? 2017 [employer] - [place], [place] - [email or web address] | + + + + + + + | Performing | Address | City/State/Zipcode | Phone Number | | Organization | | | | + + + + + | [facility] | [address], | [place], [place] | [phone] | | TECHNOLOGIES | [address] | [address] | | + + + + + [...]
--- OUTSIDE RECORDS SUMMARY | ~2019-05-14 | XMS | Encounter Summary ---
Demographics + + + | Address | GENERAL DELIVERY | | | [place] [address] | + + + | Home Phone [...] Team Providers + +------+ + | Care Hog Slaughterer Name | Role | Phone | + [...] | | | Ave Mailcode: CH6D | [place], [place] | | | | | [facility] | [address] | | | | | and Healing, | [phone] | | | | | [facility] | | | | | | Floor [place], [place] | | | | | | [address] | | | | | | [phone] | | | +--------+ + + + [...]
--- OUTSIDE RECORDS SUMMARY | ~2019-05-14 | XMS | Encounter Summary ---
Demographics + + + | Address | GENERAL DELIVERY | | | [place] [address] | + + + | Home Phone [...] | | | | | [address] | [place], [place] | | | | | [facility] | [address] | | | | | (MNP/OLD U[facility]) | [phone] | | | | | [place], [place] | | | | | | [address] | | | | | | [phone] | | | +--------+ + + + [...] Instructions Instructions Katie Kuo RN - 02/14/2011[facility] After Reyna Catheter & [...] from 8:00 4:30, call the Urology Clinic [phone]. After hours, weekend and holidays call the Hospital Line Up Worker at [phone]. Ask for them to page your doctor. Your doctor is RETURN APPOINTMENT Pre-Scheduled for March 31, 2011 @ 10:45 AM Call the Urology clinic to confirm this appointment . Urology Clinic [phone] Please call the clinic if you need [...]
--- OUTSIDE RECORDS SUMMARY | ~2019-05-14 | XMS | Encounter Summary ---
Demographics + + + | Address | GENERAL DELIVERY | | | [place] [address] | + + + | Home Phone [...] Team Providers + +------+ + | Care Early Childhood Special Educator Name | Role | Phone | + +------+ + | [place] | PCP | | + +------+ + Encounter Details +--------+ + + + + | Date | Type | Department | Care Team | Description | +--------+ + + + + | 08/11/ | Telephone | Digestive Health | Jeancarlos Marley MD | | | 2008 | | Center at [facility] [address] | [address] | | | | [address] | [place], [place] | | | | | Mailcode: Center | [address] | | | | | for Health and | [phone] | | | | | [facility] 2 | | | | | | [place], [place] | | | | | | [address] | | | | | | [phone] | | | +--------+ + + + [...] | + + + + + | [facility] | [address] | [place] [address] | | | PATHOLOGY | [address] | | | + + + + + | [facility] | [address] | [place] [address] | | | PATHOLOGY | [address] [...] | + + + + + | [facility] | [address] | [place] [address] | | | PATHOLOGY | [address] | | | + + + + + | [facility] | [address] | [place] [address] | | | PATHOLOGY | [address] [...] Performed At | + + + | [id number] Estimated GFR > 60 mL/min/1.73 sq m if non- | [facility] | | Jordanian [id number] Estimated GFR > 60 mL/min/1.73 sq m if | DEPARTMENT OF | | [place]ian GFR is estimated using the MDRD equation [...] + + | [facility] DEPARTMENT | [address] | [place] [address] | | | PATHOLOGY | [address] | | | + + + + + | [facility] | [address] | [place] [address] | | | PATHOLOGY | [address] | | | + + + + + documented in this encounter Visit Diagnoses + + | Diagnosis | + + | Chronic hepatitis C without mention of hepatic coma - Primary | + + documented in this encounter"
--- OUTSIDE RECORDS SUMMARY | ~2019-05-14 | XMS | Clinical Summary ---
Demographics + + + | Address | GENERAL DELIVERY | | | [place] [address] | + + + | Home Phone [...] Author + + + | Author | [facility] | + + + | Organization | [facility] | + + [...] + +------+ + | Care X Ray Consultant Name | Role | Phone | + +------+ + | Fam Donnelly MD | PCP | | + +------+ + Source Comments GUST[facility]O is fully live on both [facility] InPatient.[facility] Allergies + + + + + + [...] + +--------+ +--------+-------+---------+--------+ | [place] | AGENCY | xxxxxxxxx | 05/18/19 | | | Agency | | | STATE | | 11-Pre | | | | | | OF | | sent | | | | | | [place] | | | | | | + +--------+ +--------+-------+---------+--------+ | [employer] MEDICAID | [employer]URE [employer]NSHIP | xxxxxxxx | 05/22/19 | | | [...] | 1980 | [phone] | [place] [address] | | | linda | | | 3 (Home) | | + +--------+ +--------+ + + | Peng Richardson | Agency | Self | [birth year] | | GENERAL DELIVERY | | | | | 1980 | [phone] | [place] [address] | | | | | | 3 (Home) | | + +--------+ +--------+ + + Advance Directives + + + + + | Type | Date Recorded | Patient | Explanation | | | | Labeling Machine Operator | | + + + + + | Advance | | | | | Directives and | | | | | Living Will | | | | + + + + + | Power of | | | | | Chain Forming Machine Operator | | | | + + + + +
--- OUTSIDE RECORDS SUMMARY | ~2019-05-14 | XMS | Encounter Summary ---
Demographics + + + | Address | GENERAL DELIVERY | | | [place] [address] | + + + | Home Phone [...] Providers + +------+ + | Care Retail Beauty Specialist Name | Role | Phone | + +------+ + | Etienne Barnes PA-C | PCP | | + +------+ + Encounter Details +--------+ + + + + | Date | Type | Department | Care Team | Description | +--------+ + + + + | 09/14/ | Document-Sc | UNKNOWN DEPARTMENT | Unknown . | | | 2014 | anned | [address] [facility] | | | | | | [address] | | | | | | [place], [place] | | | | | | [address] | | | +--------+ + + + [...]
--- OUTSIDE RECORDS SUMMARY | ~2019-05-14 | XMS | Encounter Summary ---
Demographics + + + | Address | GENERAL DELIVERY | | | [place] [address] | + + + | Home Phone [...] Team Providers + +------+ + | Care Finger Lift Operator Name | Role | Phone | [...] Required | | hepatitis C | [address] | [address] | | | | | without | [address] | Ave | | | | | mention of | [place], | [place], [place] | | | | | hepatic coma | [place] [address] | [address] | | | | | Procedures | Phone: | Phone: | | | | | CONSULT TO | [phone] | [phone] | | | | | HEPATOLOGY | Fax: | Fax: | | | | | | [phone] | [phone] | +--------+ + + + + + Encounter Details +--------+---------+ + + + | Date | Type | Department | Care Team | Description | +--------+---------+ + + + | 01/25/ | Office | Digestive Health | Jeancarlos Rich MD | Chronic hepatitis C | | 2011 | Visit | Center at [facility] [address] | [address] | without mention of | | | | [address] | [place], [place] | hepatic coma | | | | Mailcode: OC8D | [address] | (Primary Dx) | | | | [place] [facility] | [phone] | | | | | and Healing, | | | | | | Building [address] | | | | | | [place], [place] | | | | | | [address] | | | | | | [phone] | | | +--------+---------+ + + + [...] infected in 2002 1.4)Obese 1.5) committed to [facility] in [place] until 2014 1.6 ) no liver biopsy to date 1.7) vaccinated for HAV/HBV in the past PAST MEDICAL HISTORY 2) HTN 3) Schizophrenia and anxiety:now committed to [facility] 4) obesity [...] interim he has been committed to the [facility] facility. At this time he has no clinical evidence of cirrhosis. Unfortunat birgit the current HCV treatment regimen still includes interferon, which will exacerbate any u nderlying psychiatric issues. Unless he can be safely watched and protected in the [facility], there will not be a way to use interferon-based therapy. It would be unreasonable to consider a liver biopsy (can be done in [place] thru radiology, ie ultrasound guided) to asses s degree of liver fibrosis, before even contemplating any therapy. Recommend thru Drs. Robin/Mike patients get the followin. CMP, CBC, plts, diff, INR 2. Decide if patient can be treated safely in [facility] with interferon regimen. If possible, would recommend liver biopsy (in [place]) and then will results in hand return to s [facility]. 3) If interferon-based therapy is deemed [...]
--- OUTSIDE RECORDS SUMMARY | ~2019-05-14 | XMS | Encounter Summary ---
Demographics + + + | Address | GENERAL DELIVERY | | | [place] [address] | + + + | Home Phone [...] Team Providers + +------+ + | Care Assembler Surgical Garment Name | Role | Phone | + [...] Mention of | | | | at [facility] 3rd Floor | | Hepatic Coma | | | | [address] | | | | | | Loop [place], [place] | | | | | | [address] | | | | | | [phone] | | | +--------+------+ + + + [...] + | [facility] | [address] | [place] [address] | | | PATHOLOGY | [address] | | | + + + + + | [facility] | [address] | [place] [address] | | | PATHOLOGY | [address] [...] + | [facility] | [address] | [place] [address] | | | PATHOLOGY | [address] | | | + + + + + | [facility] DEPARTMENT OF | [address] | [place] [address] | | | PATHOLOGY | [address] [...] + | [facility] | [address] | [place] [address] | | | PATHOLOGY | [address] | | | + + + + + | [facility] | [address] | [place] [address] | | | PATHOLOGY | [address] [...] Performed At | + + + | [id number] Estimated GFR > 60 mL/min/1.73 sq m if non- | [facility] | | Finnish [id number] Estimated GFR > 60 mL/min/1.73 sq m if | DEPARTMENT OF | | Finnish GFR is estimated using the MDRD equation [...] | [facility] DEPARTMENT | [address] | [place] [address] | | | PATHOLOGY | [address] | | | + + + + + | [facility] | [address] | [place] [address] | | | PATHOLOGY | [address] | | | + + + + + documented in this encounter Visit Diagnoses + + | Diagnosis | + + | Chronic hepatitis C without mention of hepatic coma | + + documented in this encounter"
--- OUTSIDE RECORDS SUMMARY | ~2019-05-14 | XMS | Encounter Summary ---
Demographics + + + | Address | GENERAL DELIVERY | | | [place] [address] | + + + | Home Phone [...] Providers + +------+ + | Care Metal Ceiling Hanger Name | Role | Phone | + [...] Hepatitis C | | 2007 | | [place] [address] [address] | [address] | without Mention of | | | | [address] | [place], [place] | Hepatic Coma | | | | Mailcode: OC8D | [address] | (Primary Dx) | | | | [facility] | [phone] | | | | | and Healing, | | | | | | [address] | | | | | | [place], [place] | | | | | | [address] | | | | | | [phone] | | | +--------+ + + + [...] Performed At | + + + | [id number] Estimated GFR > 60 mL/min/1.73 sq m if non- | [facility] | | [id number] Estimated GFR > 60 mL/min/1.73 sq m [...] + | [facility] DEPARTMENT | [address] [address] | [place] [address] | | | PATHOLOGY | [address] | | | + + + + + | [facility] | [address] | [place] [address] | | | PATHOLOGY | [address] [...] [facility] DEPARTMENT OF | [address] | [place] [address] | | | PATHOLOGY | [address] | | | + + + + + | [facility] | [facility] [address] | [place] [address] | | | PATHOLOGY | [address] [...] | + + + + + | [facility] DEPARTMENT OF | [address] | [place] [address] | | | PATHOLOGY | [address] | | | + + + + + | [facility] DEPARTMENT OF | [address] | [place] [address] | | | PATHOLOGY | [address] [...] + + + + + | [facility] | [address] [address] | [place] [address] | | | PATHOLOGY | [address] | | | + + + + + | [facility] | [address] [address] | [place] [address] | | | PATHOLOGY | [address] [...] + + + + + | [facility] | [address] | [place] [address] | | | PATHOLOGY | [address] | | | + + + + + | [facility] | [address] | [place] [address] | | | PATHOLOGY | [address] [...] by | | | | | | [facility] | | | | | | Managed Methods. | | | | + + + + + + + + | Specimen | + + | | + + + + + + + | Performing | Address | City/State/Zipcode | Phone Number | | Organization | | | | + + + + + | [facility] | [address] | [place] [address] | | | LABORATORY | | | [...] + + | Test performed by [facility]. | | + + + + + + + + | Performing | Address | City/State/Zipcode | Phone Number | | Organization | | | | + + + + + | [facility] | [address] | [place] [address] | | | LABORATORY | | | [...] 03/08/07 | | | [facility] | | | [address] [place], [place] | | | [address] | | + + + + + + + + | Performing | Address | City/State/Zipcode | Phone Number | | Organization | | | | + + + + + | [facility] | [address] | [place] [address] | | | LABORATORY | | | [...] Iron and TIBC, Serum Test performed by [facility] | | | [facility]. | | + + + + + + + + | Performing | Address | City/State/Zipcode | Phone Number | | Organization | | | | + + + + + | [facility] | [address] | [place] [address] | | | LABORATORY | | | [...] | | | | | determined bythe [facility] | | | | [...] | | | | | Improvement Act [id number]. | | | | | | [facility] | | | | | | Laboratory is a fully | | | | | | licensed and/ | | | | | | oraccredited clinical | | | | | | laboratory under CLIA, | | | | | | [place], and the State of | | | | | | [place]. | | | | + + + + + + + + | Specimen | + + | | + + + + + + + | Performing | Address | City/State/Zipcode | Phone Number | | Organization | | | | + + + + + | [facility] | [employer] | [place] [address] | | | [facility] | [address] | | | | | [place]. | | | + + + + + documented in this encounter Visit Diagnoses + + | Diagnosis | + + | Chronic hepatitis C without mention of hepatic coma - Primary | + + documented in this encounter
--- OUTSIDE RECORDS SUMMARY | ~2019-05-14 | XMS | Encounter Summary ---
Demographics + + + | Address | GENERAL DELIVERY | | | [place] [address] | + + + | Home Phone [...] Team Providers + +------+ + | Care Curtain Framer Name | Role | Phone | + [...] | | 2007 | | Center at [facility] [address] | [address] | your call.) | | | [address] | [place], [place] | | | | | Mailcode: OC8D | [address] | | | | | [facility] | [phone] | | | | | and Healing, | | | | | | [address] | | | | | | [place], [place] | | | | | | [address] | | | | | | [phone] | | | +--------+ + + + [...]
--- OUTSIDE RECORDS SUMMARY | ~2019-05-14 | XMS | Encounter Summary ---
Demographics + + + | Address | GENERAL DELIVERY | | | [place] [address] | + + + | Home Phone [...] Providers + +------+ + | Care Commercial Decorator Name | Role | Phone | + +------+ + PCP | Unavailable | + +------+ + Reason for Visit +--------+ + | Reason | Comments | +--------+ + | Pain | | +--------+ + Encounter Details +--------+ + + + + | Date | Type | Department | Care Team | Description | +--------+ + + + + | 06/13/ | Telephone | [facility] | Jeancarlos Marley MD | Pain | | 2014 | | [place] [address] [address] | [address] | | | | | [address] | [place], [place] | | | | | Mailcode: OC8D | [address] | | | | | [facility] | [phone] | | | | | and Healing, | | | | | | [address] | | | | | | [place], [place] | | | | | | [address] | | | | | | [phone] | | | +--------+ + + + [...]
--- OUTSIDE RECORDS SUMMARY | ~2019-05-14 | XMS | Encounter Summary ---
Demographics + + + | Address | GENERAL DELIVERY | | | [place] [address] | + + + | Home Phone [...] Team Providers + +------+ + | Care Foreign Collection Clerk Name | Role | Phone | [...] | | | | Mailcode: CH10U | [place], [place] | and counseling | | | | [facility] | [address] | | | | | and Healing, | [phone] | | | | | [facility] | | | | | | Floor [place], [place] | | | | | | [address] | | | | | | [phone] | | | +--------+ + + + [...]
--- OUTSIDE RECORDS SUMMARY | ~2019-05-14 | XMS | Encounter Summary ---
Demographics + + + | Address | GENERAL DELIVERY | | | [place] [address] | + + + | Home Phone [...] Team Providers + +------+ + | Care Roll Press Operator Name | Role | Phone | [...] | | retention | [place] | [address] | | | | | Urinary | STATE | Ave | | | | | Retention | HOSPITAL | [place], [place] | | | | | Procedures | [address] | [address] | | | | | REQUEST TO | [address] | Phone: | | | | | SURGERY | [place] | [phone] | | | | | EXTRUSION PROCESS OPERATOR | [address] | Fax: | | | | | [place] | Phone: | [phone] | | | | | INCISE/DRAIN | [phone] | | | | | | BLADDER | Fax: | | | | | | suprapubic | [phone] | | | | | | cystostomy [...] | | | | | | | [address] | | | | | | | Ave | | | | | | | [place], [place] | | | | | | | [address] | | | | | | | Phone: | | | | | | | [phone] | | | | | | | Fax: | | | | | | | [phone] | +--------+--------+ + + + + Encounter [...] | | | | Mailcode: CH10U | [place], [place] | | | | | [facility] | [address] | | | | | and Healing, | [phone] | | | | | | | | | | | Floor [facility] [place] | | | | | | [address] | | | | | | [phone] | | | +--------+ + + + [...] Armand Ordonez MD - 01/22/2011 12:51 PM [id number], former patient of Dr. Canchola, is an inpat ient at [facility] for at least 3 more years. [...] | + +--------+ + + + | IA CYSTOURETHROSCOPY | Routin | 01/22/2011 | Urinary retention | Results for this | | | e | | | procedure are in the | | | | | | results section. | + +--------+ + + + documented in this encounter Results IA CYSTOURETHROSCOPY (01/22/2011) + + + | Narrative [...]
--- OUTSIDE RECORDS SUMMARY | ~2019-05-14 | XMS | Encounter Summary ---
Demographics + + + | Address | GENERAL DELIVERY | | | [place] [address] | + + + | Home Phone [...] Team Providers + +------+ + | Care Delivery Lead Name | Role | Phone | + +------+ + PCP | Unavailable | + +------+ + Encounter Details +--------+ + + + + | Date | Type | Department | Care Team | Description | +--------+ + + + + | 06/14/ | Document-Sc | Digestive Health | Jeancarlos Marley MD | | | 2015 | anned | [place] [address] [address] | [address] | | | | | [address] | [place], [place] | | | | | Mailcode: OC8D | [address] | | | | | [facility] | [phone] | | | | | and Healing, | | | | | | [address] | | | | | | [place], [place] | | | | | | [address] | | | | | | [phone] | | | +--------+ + + + [...]
--- OUTSIDE RECORDS SUMMARY | ~2019-05-14 | XMS | Encounter Summary ---
Demographics + + + | Address | GENERAL DELIVERY | | | [place] [address] | + + + | Home Phone [...] Team Providers + +------+ + | Care Strategic Sourcing Manager Name | Role | Phone | [...] Abdominal pain | | 2007 | | [place] [address] [address] | [address] | | | | [address] | [place], [place] | | | | | Mailcode: OC8D | [address] | | | | | [place] [facility] | [phone] | | | | | and Healing, | | | | | | [address] | | | | | | [place], [place] | | | | | | [address] | | | | | | [phone] | | | +--------+ + + + [...]
--- OUTSIDE RECORDS SUMMARY | ~2019-05-14 | XMS | Encounter Summary ---
Demographics + + + | Address | GENERAL DELIVERY | | | [place] [address] | + + + | Home Phone [...] Team Providers + +------+ + | Care Arts Administrator Or Manager Name | Role | Phone | [...] Abdominal pain | | 2007 | | [place] [address] [address] | [address] | | | | [address] | [place], [place] | | | | | Mailcode: OC8D | [address] | | | | | [place] [facility] | [phone] | | | | | and Healing, | | | | | | [address] | | | | | | [place], [place] | | | | | | [address] | | | | | | [phone] | | | +--------+ + + + [...]
--- OUTSIDE RECORDS SUMMARY | ~2019-05-14 | XMS | Encounter Summary ---
Demographics + + + | Address | GENERAL DELIVERY | | | [place] [address] | + + + | Home Phone [...] + +------+ + | Care Franchise Sales Manager Name | Role | Phone [...] + + | 06/13/ | Telephone | [facility] | Jeancarlos Marley MD | Pain | | 2014 | | [place] [address] [address] | [address] | | | | | [address] | [place], [place] | | | | | Mailcode: OC8D | [address] | | | | | [facility] | [phone] | | | | | and Healing, | | | | | | [address] | | | | | | [place], [place] | | | | | | [address] | | | | | | [phone] | | | +--------+ + + + [...]
--- OUTSIDE RECORDS SUMMARY | ~2019-05-14 | XMS | Encounter Summary ---
Demographics + + + | Address | GENERAL DELIVERY | | | [place] [address] | + + + | Home Phone [...] Providers + +------+ + | Care Retail Wireless Sales Representative Name | Role | Phone [...] | | | | Mailcode: CH10U | [place], [place] | | | | | [facility] | [address] | | | | | and Healing, | [phone] | | | | | [facility] | | | | | | Floor [place], [place] | | | | | | [address] | | | | | | [phone] | | | +--------+ + + + [...]
--- OUTSIDE RECORDS SUMMARY | ~2019-05-14 | XMS | Encounter Summary ---
Demographics + + + | Address | GENERAL DELIVERY | | | [place] [address] | + + + | Home Phone [...] Team Providers + +------+ + | Care Alarm Field Technician Name | Role | Phone [...] | | | | Mailcode: CH10U | [place], [place] | | | | | [facility] | [address] | | | | | and Healing, | [phone] | | | | | Building | | | | | | Floor [place], [place] | | | | | | [address] | | | | | | [phone] | | | +--------+ + + + [...]
--- OUTSIDE RECORDS SUMMARY | ~2019-05-14 | XMS | Encounter Summary ---
Demographics + + + | Address | GENERAL DELIVERY | | | [place] [address] | + + + | Home Phone [...] Providers + +------+ + | Care Auto Transmission Specialist Name | Role | Phone | [...] | | [address] | [address] | | | | | Mailcode: CH10U | [place], [place] | | | | | [facility] | [address] | | | | | and Healing, | [phone] | | | | | | | | | | | Floor [place], [place] | | | | | | [address] | | | | | | [phone] | | | +--------+ + + + [...]
--- OUTSIDE RECORDS SUMMARY | ~2019-05-14 | XMS | Encounter Summary ---
Demographics + + + | Address | GENERAL DELIVERY | | | [place] [address] | + + + | Home Phone [...] Team Providers + +------+ + | Care Artist Woodblock Name | Role | Phone | + [...] Required | | hepatitis C | [address] [place] | [address] | | | | | without | [address] | Ave | | | | | mention of | [place], | [place], [place] | | | | | hepatic coma | [place] [address] | [address] | | | | | Procedures | Phone: | Phone: | | | | | CONSULT TO | [phone] | [phone] | | | | | HEPATOLOGY | Fax: | Fax: | | | | | | [phone] | [phone] | +--------+ + + + + + Encounter Details +--------+---------+ + + + | Date | Type | Department | Care Team | Description | +--------+---------+ + + + | 01/25/ | Office | Digestive Health | Jeancarlos Rich MD | Chronic hepatitis C | | 2011 | Visit | Center at [facility] [address] | [address] | without mention of | | | | [address] | [place], [place] | hepatic coma | | | | Mailcode: OC8D | [address] | (Primary Dx) | | | | [place] [facility] | [phone] | | | | | and Healing, | | | | | | [address] | | | | | | [place], [place] | | | | | | [address] | | | | | | [phone] | | | +--------+---------+ + + + [...] infected in 2002 1.4)Obese 1.5) committed to [facility] in [place] until 2014 1.6 ) no liver biopsy to date 1.7) vaccinated for HAV/HBV in the past PAST MEDICAL HISTORY 2) HTN 3) Schizophrenia and anxiety:now committed to [facility] 4) obesity Current Outpatient [...] interim he has been committed to the [facility] facility. At this time he has no clinical evidence of cirrhosis. Unfortunat birgit the current HCV treatment regimen still includes interferon, which will exacerbate any u nderlying psychiatric issues. Unless he can be safely watched and protected in the [facility], there will not be a way to use interferon-based therapy. It would be unreasonable to consider a liver biopsy (can be done in [place] thru radiology, ie ultrasound guided) to asses s degree of liver fibrosis, before even contemplating any therapy. Recommend thru Drs. Robin/Mike patients get the followin. CMP, CBC, plts, diff, INR 2. Decide if patient can be treated safely in [facility] with interferon regimen. If possible, would recommend liver biopsy (in [place]) and then will results [facility] hand [facility]. 3) If interferon-based therapy is deemed [...]
--- OUTSIDE RECORDS SUMMARY | ~2019-05-14 | XMS | Encounter Summary ---
Demographics + + + | Address | GENERAL DELIVERY | | | [place] [address] | + + + | Home Phone [...] Team Providers + +------+ + | Care Gasoline Locomotive Crane Operator Name | Role | Phone [...] | | | | | HOSPITAL | [place], [place] | | | | | | [address] | [address] | | | | | | [address] | Phone: | | | | | | [place], [place] | [phone] | | | | | | [address] | Fax: | | | | | | Phone: | [phone] | | | | | | [phone] | | | | | | | Fax: | | | | | | | [phone] | | +--------+--------+ + + + + [...] | | | | Mailcode: CH10U | [place], [place] | Voiding dysfunction | | | | [facility] | [address] | | | | | and Healing, | [phone] | | | | | Building | | | | | | Floor [place], [place] | | | | | | [address] | | | | | | [phone] | | | +--------+---------+ + + + [...] He is currently an inpatient in the [facility] for schizo-affective disorder. Since the [...] Lab) | | | | | | [facility] | | | | | | [address] | | | | | | [place] [address] | | | | | | [place] [address] | | | | + + + + + + + + | Specimen | + + | Urine - Catheter - | | single | + + + + + + + | Performing | Address | City/State/Zipcode | Phone Number | | Organization | | | | + + + + + | [facility] | [address] | [place] [address] | | | [facility] | | | | + + + + + documented in this encounter Visit Diagnoses + + | Diagnosis | + + | Retention of urine, unspecified | + + | Voiding dysfunction Unspecified disorder of urethra and urinary tract | + + documented in this encounter
--- OUTSIDE RECORDS SUMMARY | ~2019-05-14 | XMS | Encounter Summary ---
Demographics + + + | Address | GENERAL DELIVERY | | | [place] [address] | + + + | Home Phone [...] Providers + +------+ + | Care Business Planning Manager Name | Role | Phone | [...] | | | | Mailcode: CH10U | [place], [place] | | | | | [facility] | [address] | | | | | and Healing, | [phone] | | | | | | | | | | | Floor [place], [place] | | | | | | [address] | | | | | | [phone] | | | +--------+ + + + [...]
--- OUTSIDE RECORDS SUMMARY | ~2019-05-14 | XMS | Encounter Summary ---
Demographics + + + | Address | GENERAL DELIVERY | | | [place] [address] | + + + | Home Phone [...] Team Providers + +------+ + | Care Advanced Research Programs Director Name | Role | Phone | [...] | | | Ave Mailcode: CH6D | [place], [place] | | | | | [place] [facility] | [address] | | | | | and Healing, | [phone] | | | | | [facility] | | | | | | Floor [place], [place] | | | | | | [address] | | | | | | [phone] | | | +--------+ + + + [...]
== END ==
LOC: ED 02:56
DX: Z00.8 Encounter for other general examination (principal)

== ENCOUNTER 2019-05-15 12:36 | Emergency (ER) | payer OTHER ==
[~2019-05-15] VITALS: Ht 177.8 cm; Wt 104.3 kg
--- OUTSIDE RECORDS SUMMARY | ~2019-05-15 | XMS | Clinical Summary ---
Demographics + + + | Address | GENERAL DELIVERY | | | [place] [address] | + + + | Home Phone | | + + + | Preferred Language | Unknown | + + + | Marital Status | Single | + + + | Alevism Affiliation | NON | + + + | Race | White | + + + | Ethnic Group | Not or | + + + Author + + + | Author | [facility] | + + + | Organization | [facility] | + + + [...] Team Providers + +------+ + | Care Hearing Impaired Itinerant Teacher Name | Role | Phone | + +------+ + | Fam Donnelly MD | PCP | | + +------+ + Source Comments [facility] is fully live on both [facility] and [facility]3] Allergies + + + + + + [...] + +--------+ +--------+-------+---------+--------+ | [place] | AGENCY | xxxxxxxxx | 05/18/19 | | | Agency | | | STATE | | 11-Pre | | | | | | OF | | sent | | | | | | [place] | | | | | | + +--------+ +--------+-------+---------+--------+ | AUTOMOTIVE [employer]S INTERPRETER MEDICAID | AUTOMOTIVE PARTS INTERPRETER | xxxxxxxx | 05/22/19 | | | [...] | 1980 | [phone] | [place] [address] | | | linda | | | 3 (Home) | | + +--------+ +--------+ + + | Peng Richardson | Agency | Self | [birth year] | | GENERAL DELIVERY | | | | | 1980 | [phone] | [place] [address] | | | | | | 3 (Home) | | + +--------+ +--------+ + + Advance Directives + + + + + | Type | Date Recorded | Patient | Explanation | | | | Auction Clerk | | + + + + + | Advance | | | | | Directives and | | | | | Living Will | | | | + + + + + | Power of | | | | | Budget Controller | | | | + + + + +
--- OUTSIDE RECORDS SUMMARY | ~2019-05-15 | XMS | Encounter Summary ---
Demographics + + + | Address | GENERAL DELIVERY | | | [place] [address] | + + + | Home Phone | | + + + | Preferred Language | Unknown | + + + | Marital Status | Single | + + + | Mu-Ism Affiliation | NON | + + + | Race | White | + + + | Ethnic Group | Not or | + + + Author + + + | Author | [facility] | + + + | Organization | [facility] | + + + | Address | Unknown | + + + | Phone | Unavailable | + + + Support + + +---------+ + | Name | Relationship | Address | Phone | + + +---------+ + | Per None, PT | ECON | Unknown | Unavailable | + + +---------+ + Care Team Providers + +------+ + | Care Hot Stamp Operator Name | Role | Phone | + +------+ + | Jae Robin MD | PCP | | + +------+ + Reason for Visit AUTH/CERT (Routine) +--------+--------+ + + + + | Status | Reason | Specialty | Diagnoses / | Referred By | Referred To | | | | | Procedures | Contact | Contact | +--------+--------+ + + + + | Closed | | | | | | +--------+--------+ + + + + Encounter Details +--------+ + + + + | Date | Type | Department | Care Team | Description | +--------+ + + + + | 02/14/ | Hospital | [facility] [address] | Armand Ordonez MD | | | 2010 | Encounter | [address] | [address] | | | | | [address] | [place], [place] | | | | | [facility] | [address] | | | | | (MNP/OLD [facility]) | [phone] | | | | | [place], [place] | | | | | | [address] | | | | | | [phone] | | | +--------+ + + + [...] + + + | Blood Pressure | 140/101 | 02/14/2011 2:07 PM | | | | | PDT | | + + + + + | Pulse | 89 | 02/14/2011 2:07 PM | | | | | PDT | | + + + + + | Temperature | 36.5 C (97.7 F) | 02/14/2011 12:55 PM | | | | | PDT | | + + + + + | Respiratory Rate | 18 | 02/14/2011 2:07 PM | | | | | PDT | | + + + + + | Oxygen Saturation | 98% | 02/14/2011 2:07 PM | | | | | PDT | | + + + + + | Inhaled Oxygen | - | - | | | Concentration | | | | + + + + + | Weight | 141.5 kg (312 lb) | 02/14/2011 7:00 AM | | | | | PDT | | + + + + + | Height | 175.3 cm (5' 9") | 02/14/2011 7:00 AM | | | | | PDT | | + + + + + | Body Mass Index | 46.07 | 02/14/2011 7:00 AM | | | | | PDT | | + + + + + documented in this encounter Discharge Instructions Instructions Katie Kuo RN - 02/14/2011[facility] After Reyna Catheter & Leg Bag Follow the guidelines below. Call your doctor if you notice any unusual symptoms. Remember : You are under the influence of medication. Do not drive, drink alcoholic beverages, sign legal documents or make major decisions during the next 24 hours. CATHETER and BAG CARE In 2 days you may remove the dressing and clean around catheter. Do not remove th e sutures from catheter site. Clean the area around the catheter entrance with soap and water every day. Do not pull on the catheter DIET and ACTIVITIES Adjust leg bag for comfort. Empty leg bag every 8 hours or when full. Wash hands well with soap and water before handling the catheter or leg bag. YoCALL YOUR DOCTOR IF: You cannot void (urinate) within 6-8 hours after you remove your Reyna. You notice an increase in blood in your urine. You have any signs of a kidney or bladder infection. These include: Flank pain Decreased or no urine output Fever over 101 or chills MEDICINES You may take your usual medicines unless your doctor has told you otherwise. HOW TO REACH YOUR DOCTOR Thursday from 8:00 4:30, call the Urology Clinic [phone]. After hours, weekend and holidays call the Hospital Grievance Manager at [phone]. Ask for them to page your doctor. Your doctor is RETURN APPOINTMENT Pre-Scheduled for March 31, 2011 @ 10:45 AM Call the Urology clinic to confirm this appointment . Urology Clinic [phone] Please call the clinic if you need to cancel or reschedule your appointment. documented in this encounter Medications at Time of Discharge + + + +---------+ + + | Medication | Sig | Dispensed | Refills | Start | End Date | | | | | | Date | | + + + +---------+ + + | busPIRone 5 mg | take 1 tablet (5 mg) | 0 | 0 | 12/20/19 | | | Oral Tablet | by oral route 2 | | | 08 | | | | times per day | | | | | + + + +---------+ + + | chlorproMAZINE 100 | take 1 tablet (100 | 0 | 0 | 08 | | | mg Oral Tablet | mg) by oral route | | | 08 | | | | once daily | | | | | + + + +---------+ + + | lisinopril 20 mg | take 1 tablet (20 | 0 | 0 | 20 | | | Oral Tablet | mg) by oral route | | | 08 | | | | once daily | | | | | + + + +---------+ + + | LORAZEPAM (ATIVAN | Take by mouth. | | 0 | | | | ORAL) | | | | | | + + + +---------+ + + | MIRTAZAPINE | Take by mouth. | | 0 | | | | (REMERON ORAL) | | | | | | + + + +---------+ + + | OMEPRAZOLE | Take by mouth. | | 0 | | | | (PRILOSEC ORAL) | | | | | | + + + +---------+ + + | oxybutynin | Take 1 Tab by mouth | 14 Tab | 2 | 03/07/20 | | | (DITROPAN) 5 mg Oral | two times daily. | | | 10 | | | Tablet | | | | | | + + + +---------+ + + | paroxetine 20 mg | take 1 tablet (20 | 0 | 0 | 12/20/19 | | | Oral Tablet | mg) by oral route | | | 08 | | | | once daily | | | | | + + + +---------+ + + documented as of this encounter Plan of Treatment Not on filedocumented as of this encounter Procedures + +--------+ + + + | Procedure Name | Priori | Date/Time | Associated Diagnosis | Comments | | | ty | | | | + +--------+ + + + | PROCEDURE NOTE | Routin | 06/22/2015 | | Results for this | | | e | 5:22 AM | | procedure are in the | | | | PST | | results section. | + +--------+ + + + | PROCEDURE NOTE | Routin | 06/22/2015 | | Results for this | | | e | 5:21 AM | | procedure are in the | | | | PST | | results section. | + +--------+ + + + | PROCEDURE NOTE | Routin | 06/22/2015 | | Results for this | | | e | 5:12 AM | | procedure are in the | | | | PST | | results section. | + +--------+ + + + | ANESTHESIA/SEDATION | | 02/14/2011 | | Results for this | | | | 12:00 AM | | procedure are in the | | | | PDT | | results section. | + +--------+ + + + | ANESTHESIA/SEDATION | | 02/14/2011 | | Results for this | | | | 12:00 AM | | procedure are in the | | | | PDT | | results section. | + +--------+ + + + documented in this encounter Results PROCEDURE NOTE (06/22/2015 5:22 AM PST) + + | Transcriptions | + + | Other, Faculty - 02/13/2011 4:00 PM PDT | + + PROCEDURE NOTE (06/22/2015 5:21 AM PST)PROCEDURE NOTE (06/22/2015 5:12 AM PST) + + | Transcriptions | + + | [facility] - 02/24/2011 10:48 AM PDT | + + ANESTHESIA/SEDATION (02/14/2011 12:00 AM PDT) + + + | Narrative | Performed At | + + + | | | + + + + + | Transcriptions | + + | Other, Faculty - 02/16/2011 4:14 PM PDT | + + ANESTHESIA/SEDATION (02/14/2011 12:00 AM PDT) + + + | Narrative | Performed At | + + + | | | + + + + + | Transcriptions | + + | Other, Faculty - 02/14/2011 12:04 PM PDT | + + documented in this encounter Visit Diagnoses Not on filedocumented in this encounter Administered Medications + +--------+---------+------+------+------+ | Medication Order | MAR | Action | Dose | Rate | Site | | | Action | Date | | | | + +--------+---------+------+------+------+ + +---+ | oxyCODONE (immediate release) | | | (aka ROXICODONE) tablet 1 dose, | | | Starting Thu02/14/11 at 1319, | | | Until Thu02/14/11 at 1321 | | + +---+ | | | + +---+ + +-------+ +-------+---+---+ | oxyCODONE immediate release | Given | 02/15/20 | 10 mg | | | | (aka ROXICODONE) tablet 5-10 mg | | 11 1:21 | | | | | 5-10 mg, oral, EVERY 4 HOURS | | PM PDT | | | | | NEEDED, Starting Thu02/14/11 at | | | | | | | 1158, Until Thu02/14/11 at 2053, | | | | | | | severe pain | | | | | | + +-------+ +-------+---+---+ +---+---+ | | | +---+---+ documented in this encounter
--- OUTSIDE RECORDS SUMMARY | ~2019-05-15 | XMS | Encounter Summary ---
Demographics + + + | Address | [place]ERY | | | [place] [address] | + + + | Home Phone | | + + + | Preferred Language | Unknown | + + + | Marital Status | Single | + + + | Orthodoxy Affiliation | NON | + + + | Race | White | + + + | Ethnic Group | Not or | + + + Author + + + | Author | [facility] | + + + | Organization | [facility] | + + + | Address | Unknown | + + + | Phone | Unavailable | + + + Support + + +---------+ + | Name | Relationship | Address | Phone | + + +---------+ + | Per None, PT | ECON | Unknown | Unavailable | + + +---------+ + Care Team Providers + +------+ + | Care Rap Artist Name | Role | Phone | + [...] | | | | | [address] | [place], [place] | | | | | [facility] | [address] | | | | | (MNP/OLD [facility]) | [phone] | | | | | [place], [place] | | | | | | [address] | | | | | | [phone] | | | +--------+ + + + [...] Discharge Instructions Instructions Katie Kuo RN - 02/14/2011[facility] After Reyna Catheter & [...] from 8:00 4:30, call the Urology Clinic [phone]. After hours, weekend and holidays call the Hospital Community Living Specialist at [phone]. Ask for them to page your doctor. Your doctor is RETURN APPOINTMENT Pre-Scheduled for March 31, 2011 @ 10:45 AM Call the Urology clinic to confirm this appointment . Urology Clinic [phone] Please call the clinic if you need [...]
--- OUTSIDE RECORDS SUMMARY | ~2019-05-15 | XMS | Encounter Summary ---
Demographics + + + | Address | [place]ERY | | | [place] [address] | + + + | Home Phone [...] + + + | Author | [facility] | + + + | Organization | [facility] | + + + | Address | Unknown | + + + | Phone | Unavailable | + + + Support + + +---------+ + | Name | Relationship | Address | Phone | + + +---------+ + | Per None, PT | ECON | Unknown | Unavailable | + + +---------+ + Care Team Providers + +------+ + | Care Pad Tufter Name | Role | Phone | + +------+ + | Lakesha River | PCP | | + +------+ + Encounter Details +--------+ + + + + | Date | Type | Department | Care Team | Description | +--------+ + + + + | 08/11/ | Telephone | Digestive Health | Jeancarlos Marley MD | | | 2008 | | Center at [facility] [address] | [address] | | | | [address] | [place], [place] | | | | | Mailcode: Center | [address] | | | | | for Health and | [phone] | | | | | [facility], [facility] [address] | | | | | | [place], [place] | | | | | | [address] | | | | | | [phone] | | | +--------+ + + + [...] | + + + + + | [facility] | [address] | [place] [address] | | | PATHOLOGY | [address] | | | + + + + + | [facility] | [address] | [place] [address] | | | PATHOLOGY | [address] [...] | + + + + + | [facility] | [address] | [place] [address] | | | PATHOLOGY | [address] | | | + + + + + | [facility] | [address] | [place] [address] | | | PATHOLOGY | [address] [...] Performed At | + + + | [id number] Estimated GFR > 60 mL/min/1.73 sq m if non- | [facility] | | Dominican [id number] Estimated GFR > 60 mL/min/1.73 sq m if | DEPARTMENT OF | | [place] GFR is estimated using the MDRD equation [...] + + | [facility] DEPARTMENT | [address] | [place] [address] | | | PATHOLOGY | [address] | | | + + + + + | [facility] | [address] | [place] [address] | | | PATHOLOGY | [address] | | | + + + + + documented in this encounter Visit Diagnoses + + | Diagnosis | + + | Chronic hepatitis C without mention of hepatic coma - Primary | + + documented in this encounter"
--- OUTSIDE RECORDS SUMMARY | ~2019-05-15 | XMS | Encounter Summary ---
Demographics + + + | Address | [address]ERY | | | [place] [address] | + + + | Home Phone | | + + + | Preferred Language | Unknown | + + + | Marital Status | Single | + + + | Episcopalian Affiliation | NON | + + + | Race | White | + + + | Ethnic Group | Not or | + + + Author + + + | Author | [facility] | + + + | Organization | [facility] | + + + | Address | Unknown | + + + | Phone | Unavailable | + + + Support + + +---------+ + | Name | Relationship | Address | Phone | + + +---------+ + | Per None, PT | ECON | Unknown | Unavailable | + + +---------+ + Care Team Providers + +------+ + | Care Trackwalker Name | Role | Phone | + +------+ + | Jae Robin MD | PCP | | + +------+ + Reason for Visit + + + | Reason | Comments | + + + | Lab findings, | | | teaching, guidance, | | | and counseling | | + + + Encounter Details +--------+ + + + + | Date | Type | Department | Care Team | Description | +--------+ + + + + | 03/19/ | Telephone | Urology Adult | Armand Ordonez MD | Lab findings, | | 2010 | | [address] | [address] | teaching, guidance, | | | | Mailcode: CH10U | [place], [place] | and counseling | | | | [facility] | [address] | | | | | and Healing, | [phone] | | | | | [facility] | | | | | | Floor [place], [place] | | | | | | [address] | | | | | | [phone] | | | +--------+ + + + [...]
--- OUTSIDE RECORDS SUMMARY | ~2019-05-15 | XMS | Encounter Summary ---
Demographics + + + | Address | [address] | | | [place] [address] | + + + | Home Phone | | + + + | Preferred Language | Unknown | + + + | Marital Status | Single | + + + | Church Affiliation | NON | + + + | Race | White | + + + | Ethnic Group | Not or | + + + Author + + + | Author | [facility] | + + + | Organization | [facility] | + + + | Address | Unknown | + + + | Phone | Unavailable | + + + Support + + +---------+ + | Name | Relationship | Address | Phone | + + +---------+ + | Per None, PT | ECON | Unknown | Unavailable | + + +---------+ + Care Team Providers + +------+ + | Care Family Practice Physician Assistant Name | Role | Phone | + [...] Required | | hepatitis C | [address] | [address] [facility] | | | | | without | [address] | Ave | | | | | mention of | [place], | [place], [place] | | | | | hepatic coma | [place] [address] | [address] | | | | | Procedures | Phone: | Phone: | | | | | CONSULT TO | [phone] | [phone] | | | | | HEPATOLOGY | Fax: | Fax: | | | | | | [phone] | [phone] | +--------+ + + + + + Encounter Details +--------+---------+ + + + | Date | Type | Department | Care Team | Description | +--------+---------+ + + + | 06/16/ | Office | Digestive Health | Jeancarlos Marley MD | Chronic Hepatitis C | | 2007 | Visit | Center at [facility] [address] | [address] | without Mention of | | | | [address] | [place], [place] | Hepatic Coma | | | | Mailcode: OC8D | [address] | (Primary Dx) | | | | [facility] | [phone] | | | | | and Healing, | | | | | | [address] | | | | | | [place], [place] | | | | | | [address] | | | | | | [phone] | | | +--------+---------+ + + + [...] + + | Performing | Address | City/State/[facility] | Phone Number | | Organization | [...] | | | | | determined bythe [facility] | | | | | | DNA [...] | | | | | Improvement Act [id number]. | | | | | | The [facility] | | | | | | Laboratory is a fully | | | | | | licensed and/ | | | | | | oraccredited clinical | | | | | | laboratory under CLIA, | | | | | | [place], and the State of | | | | | | [place]. | | | | + + + + + + + + | Specimen | + + | | + + + + + + + | Performing | Address | City/State/Zipcode | Phone Number | | Organization | | | | + + + + + | [facility] | [facility] | [place] [address] | | | GENETICS LABS | [address] | | | | | [address]VE[address] [...] Iron and TIBC, Serum Test performed by [facility] | | | [facility]. | | + + + + + + + + | Performing | Address | City/State/Zipcode | Phone Number | | Organization | | | | + + + + + | [facility] | [address] | [place] [address] | | | LABORATORY | | | [...] | | | [facility] [facility]) [facility] | | | [address] [place], [place] | | | [address] | | + + + + + + + + | Performing | Address | City/State/Zipcode | Phone Number | | Organization | | | | + + + + + | [facility] | [address] | [place] [address] | | | LABORATORY | | | [...] + + + | Test performed by [facility]. | | + + + + + + + + | Performing | Address | City/State/Zipcode | Phone Number | | Organization | | | | + + + + + | [facility] | [address] | [place] [address] | | | LABORATORY | | | [...] by | | | | | | [facility] | | | | | | [facility]. | | | | + + + + + + + + | Specimen | + + | | + + + + + + + | Performing | Address | City/State/Zipcode | Phone Number | | Organization | | | | + + + + + | [facility] | [address] | [place] [address] | | | LABORATORY | | | [...] [facility] DEPARTMENT OF | [address] [facility] | [place] [address] | | | PATHOLOGY | [address] | | | + + + + + | [facility] DEPARTMENT OF | [address] [facility] | [place] [address] | | | PATHOLOGY | [address] [...] | + + + + + | [facility] DEPARTMENT OF | [facility] | [place] [address] | | | PATHOLOGY | [address] | | | + + + + + | [facility] DEPARTMENT OF | [address] | [place] [address] | | | PATHOLOGY | [address] | | | + + + + + documented in this encounter Visit Diagnoses + + | Diagnosis | + + | Chronic hepatitis C without mention of hepatic coma - Primary | + + documented in this encounter
--- OUTSIDE RECORDS SUMMARY | ~2019-05-15 | XMS | Encounter Summary ---
Demographics + + + | Address | [address] | | | [place] [address] | + + + | Home Phone | | + + + | Preferred Language | Unknown | + + + | Marital Status | Single | + + + | Latter Day Affiliation | NON | + + + | Race | White | + + + | Ethnic Group | Not or | + + + Author + + + | Author | [facility] | + + + | Organization | [facility] | + + + | Address | Unknown | + + + | Phone | Unavailable | + + + Support + + +---------+ + | Name | Relationship | Address | Phone | + + +---------+ + | Per None, PT | ECON | Unknown | Unavailable | + + +---------+ + Care Team Providers + +------+ + | Care Manager Progressive Care Name | Role | Phone | + +------+ + | Lakesha River | PCP | | + +------+ + Encounter Details +--------+------+ + + + | Date | Type | Department | Care Team | Description | +--------+------+ + + + | 02/27/ | Lab | Laboratory at [facility] | | Chronic Hepatitis C | | 2007 | | [address] | | without Mention of | | | | [place], [place] | | Hepatic Coma | | | | [address] | | | | | | [phone] | | | +--------+------+ + + + [...] + + documented in this encounter Results [facility] - INR (PROTHROMBINTIME) (02/28/2008 9:24 AM PDT) [...] | + + + + + | [facility] DEPARTMENT OF | [address] | [place] [address] | | | PATHOLOGY | [address] | | | + + + + + | [facility] DEPARTMENT OF | [address] | [place] [address] | | | PATHOLOGY | [address] [...] | + + + + + | [facility] DEPARTMENT | [address] [facility] [address] [address] | [place] [address] | | | PATHOLOGY | [address] | | | + + + + + | [facility] | [address] | [place] [address] | | | PATHOLOGY | [address] | | | + + + + + [facility] - COMPLETE METABOLIC SET (02/28/2008 9:24 AM [...] DEPARTMENT OF | [address] | [place] [address] | | | PATHOLOGY | [address] | | | + + + + + | [facility] DEPARTMENT [facility] | [address] | [place] [address] | | | PATHOLOGY | [address] | | | + + + + + documented in this encounter Visit Diagnoses + + | Diagnosis | + + | Chronic hepatitis C without mention of hepatic coma | + + documented in this encounter"
--- OUTSIDE RECORDS SUMMARY | ~2019-05-15 | XMS | Encounter Summary ---
Demographics + + + | Address | [address] | | | [place] [address] | + + + | Home Phone | | + + + | Preferred Language | Unknown | + + + | Marital Status | Single | + + + | Judaism Affiliation | NON | + + + [...] Team Providers + +------+ + | Care Dry House Attendant Name | Role | Phone | + +------+ + PCP | Unavailable | + +------+ + Encounter Details +--------+ + + + + | Date | Type | Department | Care Team | Description | +--------+ + + + + | 06/15/ | Document-Sc | Digestive Health | Jeancarlos Marley MD | | | 2015 | anned | [place] [address] [address] | [address] | | | | | [address] | [place], [place] | | | | | Mailcode: OC8D | [address] | | | | | [facility] | [phone] | | | | | and Healing, | | | | | | [address] | | | | | | [place], [place] | | | | | | [address] | | | | | | [phone] | | | +--------+ + + + [...] | + +--------+ + + + | CT HEPATOCELLULAR | | 06/15/2014 | | | | CARCINOMA SCREENING | | 12:00 AM | | | | | | PST | | | + +--------+ + + + documented in this encounter Results CT HEPATOCELLULAR CARCINOMA SCREENING (06/15/2014 12:00 AM PST) + + + | Narrative | Performed At | + + + | | | + + + documented in this encounter Visit Diagnoses Not on filedocumented in this encounter"
--- OUTSIDE RECORDS SUMMARY | ~2019-05-15 | XMS | Encounter Summary ---
Demographics + + + | Address | GENERAL DELIVERY | | | [place] [address] | + + + | Home Phone [...] Providers + +------+ + | Care Machine Whitener Name | Role | Phone | + +------+ + PCP | Unavailable | + +------+ + Encounter Details +--------+------+ + + + | Date | Type | Department | Care Team | Description | +--------+------+ + + + | 12/23/ | Lab | Laboratory at [facility] | | RUQ Abdominal Pain; | | 2007 | | [address] | | Chronic Hepatitis C | | | | [place], [place] | | without Mention of | | | | [address] | | Hepatic Coma | | | | [phone] | | | +--------+------+ + + + [...] | + + + + + | [facility] | [address] | [place] [address] | | | PATHOLOGY | [address] | | | + + + + + | [facility] | [facility] [address] | [place] [address] | | | PATHOLOGY | [address] [...] + + + + | [facility] DEPARTMENT OF | [address] | [place] [address] | | | PATHOLOGY | [address] | | | + + + + + | [place] DEPARTMENT OF | [address] | [place] [address] | | | PATHOLOGY | [address] [...] | + + + + + | [facility] | [address] | [place] [address] | | | PATHOLOGY | [address] | | | + + + + + | [facility] OF | [address] | [place] [address] | | | PATHOLOGY | [address] [...] Performed At | + + + | [id number] Estimated GFR > 60 mL/min/1.73 sq m if non- | [facility] | | Peruvian [id number] Estimated GFR > 60 mL/min/1.73 sq m if | DEPARTMENT OF | | Peruvian GFR is estimated using the MDRD equation [...] | + + + + + | [facility] | [address] | [place] [address] | | | PATHOLOGY | [address] | | | + + + + + | [facility] | [address] | [place] [address] | | | PATHOLOGY | [address] | | | + + + + + documented in this encounter Visit Diagnoses + + | Diagnosis | + + | RUQ abdominal pain Abdominal pain, right upper quadrant | + + | Chronic hepatitis C without mention of hepatic coma | + + documented in this encounter"
--- OUTSIDE RECORDS SUMMARY | ~2019-05-15 | XMS | Encounter Summary ---
Demographics + + + | Address | GENERAL DELIVERY | | | [place] [address] | + + + | Home Phone | | + + + | Preferred Language | Unknown | + + + | Marital Status | Single | + + + | Zoroastrianism Affiliation | NON | + + + [...] Team Providers + +------+ + | Care Hammer Smith Name | Role | Phone | + +------+ + | [place] | PCP | | + +------+ + Encounter Details +--------+ + + + + | Date | Type | Department | Care Team | Description | +--------+ + + + + | 08/21/ | Hospital | Diagnostic | | | | 2008 | Encounter | Radiology at [facility] | | | | | | [address] | | | | | | [address] Mailcode: | | | | | | [address] Physician's | | | | | | [facility] | | | | | | [place] [address] | | | | | | [phone] | | | +--------+ + + + [...] + + documented as of this encounter Medications at Time of Discharge [...] | | + +---------+ + + | [facility] DEPARTMENT | | | | | RADIOLOGY | | | | + +---------+ + + documented in this encounter Visit Diagnoses Not on filedocumented in this encounter"
--- OUTSIDE RECORDS SUMMARY | ~2019-05-15 | XMS | Encounter Summary ---
Demographics + + + | Address | GENERAL DELIVERY | | | [place] [address] | + + + | Home Phone | | + + + | Preferred Language | Unknown | + + + | Marital Status | Single | + + + | Druze Affiliation | NON | + + + [...] Team Providers + +------+ + | Care Pants Busheler Name | Role | Phone | + [...] Required | | hepatitis C | [address] | [address] | | | | | without | [address] | Ave | | | | | mention of | [place], | [place], [place] | | | | | hepatic coma | [place] [address] | [address] | | | | | Procedures | Phone: | Phone: | | | | | CONSULT TO | [phone] | [phone] | | | | | HEPATOLOGY | Fax: | Fax: | | | | | | [phone] | [phone] | +--------+ + + + + + Encounter Details +--------+---------+ + + + | Date | Type | Department | Care Team | Description | +--------+---------+ + + + | 02/27/ | Office | Digestive Health | Jeancarlos Rich MD | Chronic Hepatitis C | | 2007 | Visit | Center at [facility] [address] | [address] | without Mention of | | | | [address] | [place], [place] | Hepatic Coma | | | | Mailcode: OC8D | [address] | (Primary Dx) | | | | [facility] | [phone] | | | | | and Healing, | | | | | | [address] | | | | | | [place], [place] | | | | | | [address] | | | | | | [phone] | | | +--------+---------+ + + + [...] on filedocumented as of this encounter Results [facility] - INR (PROTHROMBINTIME) (02/28/2008 9:24 AM [...] | + + + + + | [facility] | [address] [facility] | [place] [address] | | | PATHOLOGY | [address] | | | + + + + + | [facility] | [address] [place] [address] | [place] [address] | | | PATHOLOGY | [address] [...] | + + + + + | [facility] | [address] [facility] | [place] [address] | | | PATHOLOGY | [address] | | | + + + + + | [facility] | [address] [place] [address] | [place] [address] | | | PATHOLOGY | [address] [...] DEPARTMENT OF | [address] | [place] [address] | | | PATHOLOGY | [address] | | | + + + + + | [facility] | [address] | [place] [address] | | | PATHOLOGY | [address] | | | + + + + + documented in this encounter Visit Diagnoses + + | Diagnosis | + + | Chronic hepatitis C without mention of hepatic coma - Primary | + + documented in this encounter"
--- OUTSIDE RECORDS SUMMARY | ~2019-05-15 | XMS | Encounter Summary ---
Demographics + + + | Address | GENERAL DELIVERY | | | [place] [address] | + + + | Home Phone [...] Providers + +------+ + | Care Automotive Fuel Injection Servicer Name | Role | Phone | + [...] Phone communication | | 2009 | | [address] | [address] | | | | | Mailcode: CH10U | [place], [place] | | | | | [facility] | [address] | | | | | and Healing, | [phone] | | | | | [facility] | | | | | | Floor [place], [place] | | | | | | [address] | | | | | | [phone] | | | +--------+ + + + [...]
--- OUTSIDE RECORDS SUMMARY | ~2019-05-15 | XMS | Encounter Summary ---
Demographics + + + | Address | GENERAL DELIVERY | | | [place] [address] | + + + | Home Phone [...] Team Providers + +------+ + | Care Petroleum Refinery Worker Name | Role | Phone | + +------+ + | Etienne Barnes PA-C | PCP | | + +------+ + Encounter Details +--------+ + + + + | Date | Type | Department | Care Team | Description | +--------+ + + + + | 06/15/ | Document-Sc | UNKNOWN DEPARTMENT | Unknown . | | | 2014 | anned | [address] [facility] | | | | | | [address] | | | | | | [place], [place] | | | | | | [address] | | | +--------+ + + + [...]
--- OUTSIDE RECORDS SUMMARY | ~2019-05-15 | XMS | Encounter Summary ---
Demographics + + + | Address | GENERAL DELIVERY | | | [place] [address] | + + + | Home Phone | | + + + | Preferred Language | Unknown | + + + | Marital Status | Single | + + + | Jehovah'S Witness Affiliation | NON | + + + | Race | White | + + + | Ethnic Group | Not or | + + + Author + + + | Author | [facility] | + + + | Organization | [facility] | + + + | Address | Unknown | + + + | Phone | Unavailable | + + + Support + + +---------+ + | Name | Relationship | Address | Phone | + + +---------+ + | Per None, PT | ECON | Unknown | Unavailable | + + +---------+ + Care Team Providers + +------+ + | Care Supervising Chef Name | Role | Phone | + +------+ + PCP | Unavailable | + +------+ + Reason for Visit + + + | Reason | Comments | + + + | Blood Test Results | Outside labs from [facility] 06/08/14. | + + + Encounter Details +--------+ + + + + | Date | Type | Department | Care Team | Description | +--------+ + + + + | 06/13/ | Documentati | Digestive Health | Jeancarlos Marley MD | Blood Test Results | | 2014 | on | Center at [facility] [address] | [address] | (Outside labs from | | | | [address] | [place], [place] | [facility] | | | | Mailcode: OC8D | [address] | 06/08/14.) | | | | [facility] | [phone] | | | | | and Healing, | | | | | | [address] | | | | | | [place], [place] | | | | | | [address] | | | | | | [phone] | | | +--------+ + + + [...] | + +---------+ + + | NON [facility] | | | | + +---------+ + + documented in this encounter Visit Diagnoses Not on filedocumented in this encounter"
--- OUTSIDE RECORDS SUMMARY | ~2019-05-15 | XMS | Encounter Summary ---
Demographics + + + | Address | GENERAL DELIVERY | | | [place] [address] | + + + | Home Phone [...] + + | Author | [facility] | + + + | Organization | [facility] | + + + | Address | Unknown | + + + | Phone | Unavailable | + + + Support + + +---------+ + | Name | Relationship | Address | Phone | + + +---------+ + | Per None, PT | ECON | Unknown | Unavailable | + + +---------+ + Care Team Providers + +------+ + | Care High School Assistant Football Coach Name | Role | Phone | + [...] Required | | hepatitis C | [address] | [address] | | | | | without | [address] | Ave | | | | | mention of | [place], | [place], [place] | | | | | hepatic coma | [place] [address] | [address] | | | | | Procedures | Phone: | Phone: | | | | | CONSULT TO | [phone] | [phone] | | | | | HEPATOLOGY | Fax: | Fax: | | | | | | [phone] | [phone] | +--------+ + + + + + Encounter Details +--------+---------+ + + + | Date | Type | Department | Care Team | Description | +--------+---------+ + + + | 02/27/ | Office | Digestive Health | Jeancarlos Rich MD | Chronic Hepatitis C | | 2007 | Visit | Center at [facility] [address] | [address] | without Mention of | | | | [address] | [place], [place] | Hepatic Coma | | | | Mailcode: OC8D | [address] | (Primary Dx) | | | | [facility] | [phone] | | | | | and Healing, | | | | | | [address] | | | | | | [place], [place] | | | | | | [address] | | | | | | [phone] | | | +--------+---------+ + + + [...] on filedocumented as of this encounter Results [facility] - INR (PROTHROMBINTIME) (02/28/2008 9:24 AM [...] | + + + + + | [facility] | [address] [facility] | [place] [address] | | | PATHOLOGY | [address] | | | + + + + + | [facility] | [address] [place] [address] | [place] [address] | | | PATHOLOGY | [address] [...] | + + + + + | [facility] | [address] [facility] | [place] [address] | | | PATHOLOGY | [address] | | | + + + + + | [facility] | [address] [place] [address] | [place] [address] | | | PATHOLOGY | [address] [...] DEPARTMENT OF | [address] | [place] [address] | | | PATHOLOGY | [address] | | | + + + + + | [facility] | [address] | [place] [address] | | | PATHOLOGY | [address] | | | + + + + + documented in this encounter Visit Diagnoses + + | Diagnosis | + + | Chronic hepatitis C without mention of hepatic coma - Primary | + + documented in this encounter"
--- OUTSIDE RECORDS SUMMARY | ~2019-05-15 | XMS | Encounter Summary ---
Demographics + + + | Address | GENERAL DELIVERY | | | [place] [address] | + + + | Home Phone [...] Team Providers + +------+ + | Care Door Patcher Name | Role | Phone | + +------+ + PCP | Unavailable | + +------+ + Encounter Details +--------+ + + + + | Date | Type | Department | Care Team | Description | +--------+ + + + + | 06/15/ | Document-Sc | Digestive Health | Jeancarlos Marley MD | | | 2015 | anned | [place] [address] [address] | [address] | | | | | [address] | [place], [place] | | | | | Mailcode: OC8D | [address] | | | | | [facility] | [phone] | | | | | and Healing, | | | | | | [address] | | | | | | [place], [place] | | | | | | [address] | | | | | | [phone] | | | +--------+ + + + [...]
--- OUTSIDE RECORDS SUMMARY | ~2019-05-15 | XMS | Encounter Summary ---
Demographics + + + | Address | GENERAL DELIVERY | | | [place] [address] | + + + | Home Phone [...] Team Providers + +------+ + | Care Flat Surfacer Jewel Name | Role | Phone | + [...] | | | URINARY | [place] | [address] | | | | | RETENTION | STATE | Ave | | | | | | HOSPITAL | [place], [place] | | | | | | [address] | [address] | | | | | | [address] | Phone: | | | | | | [place], [place] | [phone] | | | | | | [address] | Fax: | | | | | | Phone: | [phone] | | | | | | [phone] | | | | | | | Fax: | | | | | | | [phone] | | +--------+--------+ + + + + [...] | | | | Mailcode: CH10U | [place], [place] | | | | | [facility] | [address] | | | | | and [place], | [phone] | | | | | | | | | | | Floor [place], [place] | | | | | | [address] | | | | | | [phone] | | | +--------+ + + + [...] hands with soap and water or hand patent law specialist. Clean the tip of the penis with [...] or contact PCP or call us at [phone] or after hours at [phone] for signs or symptoms of UTI. Urinary [...] for life. We will have our clinic retail manager the proper technique. He should be able [...] Resident Physician - Division of Urology Pager #[id number] Wang Fitzgerald Md - 1 05/28/2009 10:48 [...] | + +--------+ + + + | CA CYSTOURETHROSCOPY | Routin | 03/28/2010 | Unspecified [...] | + +--------+ + + + | CA CYSTOURETHROSCOPY | Routin | 03/28/2010 | Voiding | Results for this | | | e | | dysfunction | procedure are in the | | | | | | results section. | + +--------+ + + + documented in this encounter Results CA CYSTOURETHROSCOPY (03/28/2010) + + + | Narrative [...] + + + + | [facility] | [address] | [place] [address] | | | OF CARE TESTS | | | | + + + + + documented in this encounter Visit Diagnoses + + | Diagnosis | + + | Retention of urine, unspecified | + + | Voiding dysfunction Unspecified disorder of urethra and urinary tract | + + documented in this encounter"
--- OUTSIDE RECORDS SUMMARY | ~2019-05-15 | XMS | Encounter Summary ---
Demographics + + + | Address | GENERAL DELIVERY | | | [place] [address] | + + + | Home Phone [...] Team Providers + +------+ + | Care Aircraft Navigator Name | Role | Phone | + [...] | | | PROVIDER PER | [address] [place] | | | | | | PT | for Health | | | | | | | and Healing, | | | | | | | [address], | | | | | | | 10th Floor | | | | | | | [place], [place] | | | | | | | [address] | | | | | | | Phone: | | | | | | | [phone] | | | | | | | Fax: | | | | | | | [phone] | +--------+--------+ + + + + Encounter [...] | | | Mailcode: CH10U | [facility] [place] | | | | | [facility] | [address] | | | | | and Healing, | [phone] | | | | | [facility] | | | | | | Floor [place], [place] | | | | | | [address] | | | | | | [phone] | | | +--------+---------+ + + + [...] PDT12 days s/p open suprapubic cystostomy for medical records auditor 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 Has had ER visits [...] out of wound for easy remov al/change [place] [facility] present and packing reviewed. A/P: Wound [...]
--- OUTSIDE RECORDS SUMMARY | ~2019-05-15 | XMS | Encounter Summary ---
Demographics + + + | Address | GENERAL DELIVERY | | | [place] [address] | + + + | Home Phone [...] Team Providers + +------+ + | Care Termite Inspector Name | Role | Phone | [...] | | | PROVIDER PER | [facility] [place] | | | | | | PT | for Health | | | | | | | and Healing, | | | | | | | Building [address], | | | | | | | 10th Floor | | | | | | | [place], [place] | | | | | | | [address] | | | | | | | Phone: | | | | | | | [phone] | | | | | | | Fax: | | | | | | | [phone] | +--------+--------+ + + + + Encounter [...] | | | | Mailcode: CH10U | [facility] [place] | | | | | [facility] | [address] | | | | | and Healing, | [phone] | | | | | [facility] | | | | | | Floor [place], [place] | | | | | | [address] | | | | | | [phone] | | | +--------+---------+ + + + [...] PDT12 days s/p open suprapubic cystostomy for buffer chrome 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 Has had ER visits [...] out of wound for easy remov al/change [place] Nursing present and packing reviewed. A/P: Wound [...]
--- OUTSIDE RECORDS SUMMARY | ~2019-05-15 | XMS | Encounter Summary ---
Demographics + + + | Address | GENERAL DELIVERY | | | [place] [address] | + + + | Home Phone [...] Author + + + | Author | [facility] | + + + | Organization | [facility] | + + + | Address | Unknown | + + + | Phone | Unavailable | + + + Support + + +---------+ + | Name | Relationship | Address | Phone | + + +---------+ + | Per None, PT | ECON | Unknown | Unavailable | + + +---------+ + Care Team Providers + +------+ + | Care Head Chef Name | Role | Phone | [...] Abdominal pain | | 2007 | | [place] [address] [address] | [address] | (liver pain) | | | | [address] | [place], [place] | | | | | Mailcode: OC8D | [address] | | | | | [place] [facility] | [phone] | | | | | and Healing, | | | | | | [address] | | | | | | [place], [place] | | | | | | [address] | | | | | | [phone] | | | +--------+ + + + [...] | + + + + + | [facility] DEPARTMENT OF | [address] | [facility] [place] [facility] [place] [address] | | | PATHOLOGY | [address] | | | + + + + + | [facility] DEPARTMENT OF | [address] | [place] [address] | | | PATHOLOGY | [address] [...] + + + + + | [facility] | [address] | [place] [address] | | | PATHOLOGY | [address] | | | + + + + + | [facility] | [address] | [place] [address] | | | PATHOLOGY | [address] [...] Performed At | + + + | [id number] Estimated GFR > 60 mL/min/1.73 sq m if non- | [facility] | | [place] 156307 Estimated GFR > 60 mL/min/1.73 sq m if | DEPARTMENT OF | | Thai GFR is estimated using the MDRD equation [...] + + + + + | [facility] | [address] | [place] [address] | | | PATHOLOGY | [address] | | | + + + + + | [facility] | [address] | [place] [address] | | | PATHOLOGY | [address] [...] spleen | | | | | | gjbbrmic88.5 cm in | | | | | [...] | | + +---------+ + + | [facility] DEPARTMENT OF | | | | | [...]
--- OUTSIDE RECORDS SUMMARY | ~2019-05-15 | XMS | Encounter Summary ---
Demographics + + + | Address | GENERAL DELIVERY | | | [place] [address] | + + + | Home Phone [...] + + + | Author | [facility] | + + + | Organization | [facility] | + + + | Address | Unknown | + + + | Phone | Unavailable | + + + Support + + +---------+ + | Name | Relationship | Address | Phone | + + +---------+ + | Per None, PT | ECON | Unknown | Unavailable | + + +---------+ + Care Team Providers + +------+ + | Care X Ray Equipment Servicer Name | Role | Phone | [...] | | | | Mailcode: CH10U | [place], [place] | | | | | [facility] | [address] | | | | | and Healing, | [phone] | | | | | Building | | | | | | Floor [place], [place] | | | | | | [address] | | | | | | [phone] | | | +--------+ + + + [...]
--- OUTSIDE RECORDS SUMMARY | ~2019-05-15 | XMS | Encounter Summary ---
Demographics + + + | Address | GENERAL DELIVERY | | | [place] [address] | + + + | Home Phone [...] Team Providers + +------+ + | Care Exerciser Name | Role | Phone | + [...] Hepatitis C | | 2007 | | [place] [address] [address] | [address] | without Mention of | | | | [address] | [place], [place] | Hepatic Coma | | | | Mailcode: OC8D | [address] | (Primary Dx) | | | | [place] [facility] | [phone] | | | | | and Healing, | | | | | | [address] | | | | | | [place], [place] | | | | | | [address] | | | | | | [phone] | | | +--------+ + + + [...] Performed At | + + + | [id number] Estimated GFR > 60 mL/min/1.73 sq m if non- | [facility] | | [id number] Estimated GFR > 60 mL/min/1.73 sq m [...] | + + + + + | [facility] DEPARTMENT | [address] | [place] [address] | | | PATHOLOGY | [address] | | | + + + + + | [facility] | [address] | [place] [address] | | | PATHOLOGY | [address] [...] | + + + + + | [facility] DEPARTMENT OF | [address] | [place] [address] | | | PATHOLOGY | [address] | | | + + + + + | [facility] | [facility] [address] | [place] [address] | | | PATHOLOGY | [address] [...] | + + + + + | [facility] DEPARTMENT OF | [address] | [place] [address] | | | PATHOLOGY | [address] | | | + + + + + | [facility] DEPARTMENT OF | [address] | [place] [address] | | | PATHOLOGY | [address] [...] + + + | [facility] | [address] | [place] [address] | | | PATHOLOGY | [address] | | | + + + + + | [facility] | [address] | [place] [address] | | | PATHOLOGY | [address] [...] + + + | [facility] | [address] | [place] [address] | | | PATHOLOGY | [address] | | | + + + + + | [facility] | [address] | [place] [address] | | | PATHOLOGY | [address] [...] by | | | | | | [facility] | | | | | | [employer]. | | | | + + + + + + + + | Specimen | + + | | + + + + + + + | Performing | Address | City/State/Zipcode | Phone Number | | Organization | | | | + + + + + | [facility] | [address] | [place] [address] | | | LABORATORY | | | [...] + + | Test performed by [facility]. | | + + + + + + + + | Performing | Address | City/State/Zipcode | Phone Number | | Organization | | | | + + + + + | [facility] | [address] | [place] [address] | | | LABORATORY | | | [...] effective 03/08/07 | | | [facility] ([facility] | | | [address] [place], [place] | | | [address] | | + + + + + + + + | Performing | Address | City/State/Zipcode | Phone Number | | Organization | | | | + + + + + | [facility] | [address] | [place] [address] | | | LABORATORY | | | [...] Iron and TIBC, Serum Test performed by [facility] | | | [facility]. | | + + + + + + + + | Performing | Address | City/State/Zipcode | Phone Number | | Organization | | | | + + + + + | [facility] | [address] | [place] [address] | | | LABORATORY | | | [...] | | | | | determined bythe [facility] | | | | | [...] | | | | | Improvement Act [id number]. | | | | | | [facility] | | | | | | Laboratory is a fully | | | | | | licensed and/ | | | | | | oraccredited clinical | | | | | | laboratory under CLIA, | | | | | | [place], and the State of | | | | | | [place]. | | | | + + + + + + + + | Specimen | + + | | + + + + + + + | Performing | Address | City/State/Zipcode | Phone Number | | Organization | | | | + + + + + | [facility] | [address] | [place] [address] | | | [facility] | [address] | | | | | [place]. | | | + + + + + documented in this encounter Visit Diagnoses + + | Diagnosis | + + | Chronic hepatitis C without mention of hepatic coma - Primary | + + documented in this encounter
--- OUTSIDE RECORDS SUMMARY | ~2019-05-15 | XMS | Encounter Summary ---
Demographics + + + | Address | GENERAL DELIVERY | | | [place] [address] | + + + | Home Phone [...] Author + + + | Author | [facility] | + + + | Organization | [facility] | + + + | Address | Unknown | + + + | Phone | Unavailable | + + + Support + + +---------+ + | Name | Relationship | Address | Phone | + + +---------+ + | Per None, PT | ECON | Unknown | Unavailable | + + +---------+ + Care Team Providers + +------+ + | Care Photoengraving Helper Name | Role | Phone | [...] Mention of | | | | at [facility] 3rd Floor | | Hepatic Coma | | | | [address] | | | | | | Loop [place], [place] | | | | | | [address] | | | | | | [phone] | | | +--------+------+ + + + [...] | + + + + + | [facility] | [address] | [place] [address] | | | PATHOLOGY | [address] | | | + + + + + | [facility] | [address] | [place] [address] | | | PATHOLOGY | [address] [...] | + + + + + | [facility] | [address] | [place] [address] | | | PATHOLOGY | [address] | | | + + + + + | [facility] DEPARTMENT OF | [address] | [place] [address] | | | PATHOLOGY | [address] [...] | + + + + + | [facility] | [address] | [place] [address] | | | PATHOLOGY | [address] | | | + + + + + | [facility] | [address] | [place] [address] | | | PATHOLOGY | [address] [...] Performed At | + + + | [id number] Estimated GFR > 60 mL/min/1.73 sq m if non- | [facility] | | Belarusian [id number] Estimated GFR > 60 mL/min/1.73 sq m if | DEPARTMENT OF | | Belarusian GFR is estimated using the MDRD equation [...] | + + + + + | [facility] DEPARTMENT | [address] | [place] [address] | | | PATHOLOGY | [address] | | | + + + + + | [facility] | [address] | [place] [address] | | | PATHOLOGY | [address] | | | + + + + + documented in this encounter Visit Diagnoses + + | Diagnosis | + + | Chronic hepatitis C without mention of hepatic coma | + + documented in this encounter"
--- OUTSIDE RECORDS SUMMARY | ~2019-05-15 | XMS | Encounter Summary ---
Demographics + + + | Address | GENERAL DELIVERY | | | [place] [address] | + + + | Home Phone | | + + + | Preferred Language | Unknown | + + + | Marital Status | Single | + + + | Tenriism Affiliation | NON | + + + [...] Team Providers + +------+ + | Care Lightout Examiner Name | Role | Phone | + [...] | | | | Mailcode: CH10U | [place], [place] | | | | | [facility] | [address] | | | | | and [place], | [phone] | | | | | [facility] | | | | | | Floor [place], [place] | | | | | | [address] | | | | | | [phone] | | | +--------+ + + + [...]
--- OUTSIDE RECORDS SUMMARY | ~2019-05-15 | XMS | Encounter Summary ---
Demographics + + + | Address | GENERAL DELIVERY | | | [place] [address] | + + + | Home Phone | | + + + | Preferred Language | Unknown | + + + | Marital Status | Single | + + + | Protestant Affiliation | NON | + + + [...] Team Providers + +------+ + | Care Special Tester Name | Role | Phone | + +------+ + PCP | Unavailable | + +------+ + Encounter Details +--------+------+ + + + | Date | Type | Department | Care Team | Description | +--------+------+ + + + | 12/23/ | Lab | Laboratory at [facility] | | RUQ Abdominal Pain; | | 2007 | | [address] | | Chronic Hepatitis C | | | | [place], [place] | | without Mention of | | | | [address] | | Hepatic Coma | | | | [phone] | | | +--------+------+ + + + [...] | [facility] | [address] | [place] [address] | | | PATHOLOGY | [address] | | | + + + + + | [facility] | [facility] [address] | [place] [address] | | | PATHOLOGY | [address] [...] | + + + + + | [facility] DEPARTMENT OF | [address] | [facility] [place] [address] | | | PATHOLOGY | [address] | | | + + + + + | [place] DEPARTMENT OF | [address] | [place] [address] | | | PATHOLOGY | [address] [...] [facility] | [address] | [place] [address] | | | PATHOLOGY | [address] | | | + + + + + | [facility] OF | [address] | [place] [address] | | | PATHOLOGY | [address] [...] Performed At | + + + | [id number] Estimated GFR > 60 mL/min/1.73 sq m if non- | [facility] | | Jamaican [id number] Estimated GFR > 60 mL/min/1.73 sq m if | DEPARTMENT OF | | Jamaican GFR is estimated using the MDRD equation [...] [facility] | [address] | [place] [address] | | | PATHOLOGY | [address] | | | + + + + + | [facility] | [address] | [place] [address] | | | PATHOLOGY | [address] | | | + + + + + documented in this encounter Visit Diagnoses + + | Diagnosis | + + | RUQ abdominal pain Abdominal pain, right upper quadrant | + + | Chronic hepatitis C without mention of hepatic coma | + + documented in this encounter"
--- OUTSIDE RECORDS SUMMARY | ~2019-05-15 | XMS | Encounter Summary ---
Demographics + + + | Address | GENERAL DELIVERY | | | [place] [address] | + + + | Home Phone [...] Providers + +------+ + | Care Aircraft Charter Dispatcher Name | Role | Phone | + [...] + + | 12/27/ | Telephone | [facility] | Jeancarlos Marley MD | Abdominal pain | | 2007 | | [place] [address] [address] | [address] | | | | | [address] | [place], [place] | | | | | Mailcode: OC8D | [address] | | | | | [facility] | [phone] | | | | | and Healing, | | | | | | [address] | | | | | | [place], [place] | | | | | | [address] | | | | | | [phone] | | | +--------+ + + + [...]
--- OUTSIDE RECORDS SUMMARY | ~2019-05-15 | XMS | Encounter Summary ---
Demographics + + + | Address | GENERAL DELIVERY | | | [place] [address] | + + + | Home Phone [...] Team Providers + +------+ + | Care Ms Sql Dba Name | Role | Phone | + +------+ + | [place]ha [place] | PCP | | + +------+ + Encounter Details +--------+------+ + + + | Date | Type | Department | Care Team | Description | +--------+------+ + + + | 02/27/ | Lab | Laboratory at [facility] | | Chronic Hepatitis C | | 2007 | | [address] | | without Mention of | | | | [place], [place] | | Hepatic Coma | | | | [address] | | | | | | [phone] | | | +--------+------+ + + + [...] + + documented in this encounter Results [facility] - INR (PROTHROMBINTIME) (02/28/2008 9:24 [...] | + + + + + | [facility] DEPARTMENT OF | [address] | [place] [address] | | | PATHOLOGY | [address] | | | + + + + + | [facility] DEPARTMENT OF | [address] | [place] [address] | | | PATHOLOGY | [address] [...] | + + + + + | [facility] DEPARTMENT | [address] | [place] [address] | | | PATHOLOGY | [address] | | | + + + + + | [facility] | [address] | [place] [address] | | | PATHOLOGY | [address] | | | + + + + + [facility] - COMPLETE METABOLIC SET (02/28/2008 9:24 [...] DEPARTMENT OF | [address] | [place] [address] | | | PATHOLOGY | [address] | | | + + + + + | [place] DEPARTMENT OF | [address] | [place] [address] | | | PATHOLOGY | [address] | | | + + + + + documented in this encounter Visit Diagnoses + + | Diagnosis | + + | Chronic hepatitis C without mention of hepatic coma | + + documented in this encounter"
--- OUTSIDE RECORDS SUMMARY | ~2019-05-15 | XMS | Encounter Summary ---
Demographics + + + | Address | GENERAL DELIVERY | | | [place] [address] | + + + | Home Phone [...] Team Providers + +------+ + | Care Facilities Technician Name | Role | Phone | [...] | abdominal | [address] | [address] | | | | | pain | [facility] | Ave | | | | | Neurogenic | Rd | [facility] [place] | | | | | bladder | [facility] [place] | [address] | | | | | Procedures | [address] | Phone: | | | | | CONSULT TO | Phone: | [phone] | | | | | UROLOGY | [phone] | Fax: | | | | | | Fax: | [phone] | | | | | | [phone] | | +--------+--------+ + + + + Reason for Visit + + + | Reason | Comments | + + + | Catheter Problem | | + + + Encounter Details +--------+ + + + + | Date | Type | Department | Care Team | Description | +--------+ + + + + | 02/22/ | Emergency | [facility] Emergency | Fe Walter, | | | 2017 - | | Department [address] | Edith Kelley MD [address] | | | | | [facility] | [facility] | | | 02/23/ | | [facility] | [address], [place] | | | 2017 | | [place], [place] | [address] | | | | | [address] | | | | | | [phone] | | | +--------+ + + + [...] documented in this encounter Discharge Instructions Instructions Aikl Mcqueen MD - 02/23/2017Wilda Richardson, Thank you for coming to the Emergency Department at [facility] for your care. You were evaluated [...] other well. -Be careful about taking other emjm-wqn-zlhhfeu medicines, which may contain acetaminophen or ibuprofen and could lead to toxicity. -If you have liver disease, kidney disease or stomach ulcers, the standard doses of these m edicines may be too high for you. -We expect that your pain will improve over the next few days, and do not expect that you w ill need to continue these medicines usp. You should talk to your primary care [...] your primary care doctor for follow-up and [facility]. Care delivered in the Emergency Department should not be considered as a substitute for [facility] care and/or specialist care for ongoing medical issues, and it is important that you fo llow up as described above. Thank you for letting us care for you at the [facility] Emergency Department today. Note: If you [...] [facility] | | | | | | [place], POINT | | | | | | [...] [facility] | [address] | [place], [place] | | | [place]IS[place] POINT OF CARE | [address] | [address] | | | TESTS | | | [...] +---------+ + + + | NON-WALDOAMRUSS | Raay (A) | None /hpf | [facility] | [...] [facility] | [address] | [place] [address] | | | SERVICES, CORE | [address] [...] [facility] | [address] | [place] [address] | | | NANCY MAX | [address] [...] + | DIAL - AIRPORT - | [address] | [place] [address] | | | [place] | | | | + + + [...] [facility] | [address] | [place] [address] | | | NANCY MAX | [address] [...] | + + + + + | [facility] | [address] | [place] [address] | | | NANCY MAX | [address] [...] | + + + + + | [facility] | [address] | [place] [address] | | | MANSOOR, NANCY | [address] [...] | + + + + + | [facility] | [address] | [place] [address] | | | SERVICES, CORE | [address] [...] [facility] | [address] | [place] [address] | | | SERVICES, CORE | [address] [...] | + + + + + | [facility] | [address] [facility] | [place] [address] | | | SERVICES, | [address] | | | | TRANSFUSION MEDICINE | | | | + + + + + ED INFORMATION EXCHANGE (02/22/2017 8:33 PM PDT) + + | Specimen | + + | | + + + + + | Narrative | Performed At | + + + | [id number] This patient has registered at the | [facility] | | [facility] Emergency Department For more | MEDICAL | | information visit: | TECHNOLOGIES | | [email or web address] | | | [id number] ED Care Guidelines from [facility] Last | | | Updated: 12/03/16 2:35 PM Care Coordination: ENCOURAGE PATIENT | | | TO USE PCP FOR FOLLOW UP AND NON-EMERGENT PROBLEMS. GIVE PATIENT THIS | | | SPECIAL ASSETS OFFICER NAME AND NUMBER FOR HELP AND QUESTIONS. MARSHALL AMADOR ED | | | SANDER OPERATOR [facility] [phone] These are guidelines | | | and the provider should exercise clinical judgment when providing | | | care. Care History Behavioral 12/03/16 12:00 AM [facility] | | | Hospital PT IS [facility]ING [facility] -- ATTN:IVONNE | | | [facility] Medical/Surgical 11/03/14 12:00 AM [facility] [place] [facility] | | | Hospital Smoker Methamphetamine abuse Recent Emergency | | | Department Visit Summary Admit Date Facility City State Type Major | | | Type Diagnoses or Chief Complaint Feb 22, 2017 [facility] | | | [facility] [place] Emergency Emergency 10,800. | | | Cath issue Feb 20, [address] [place]. [place] | | | Emergency Emergency dizzy Generalized Body Aches | | | Neuromuscular dysfunction of bladder, unspecified Feb 18, 2017 [facility] | | | [place] Emergency Emergency Other stimulant | | | abuse, uncomplicated Other usp (current) drug therapy | | | Nicotine [...] unspecified Feb 16, 2017 | | | [facility] [place] Emergency Emergency Chief Complaint: | | | Urinary Problem Feb 03, 2017 [facility] | | | [place] Emergency Emergency Chief Complaint: URO MALE Jan | | | 2016 [facility] [place] Emergency | | | Emergency Bipolar disorder, unspecified Nicotine | | | dependence, cigarettes, uncomplicated Other stimulant | | | dependence, uncomplicated Dec 30, 2016 [facility] | | | [place]. [place] Emergency Emergency catheter issues Urinary | | | Catheter Insertion Other urethritis Retention of urine, | | | unspecified Other stimulant abuse, uncomplicated Dec 03, | | | 2016 [facility] [place] Emergency Emergency Bipolar | | | disorder, unspecified Schizoaffective disorder, unspecified | | | Other usp (current) drug therapy Nicotine dependence, | | | unspecified, uncomplicated Anxiety disorder, unspecified | | | Allergy status to other antibiotic agents status Allergy status | | | to other drugs, medicaments and biological substances status | | | Other fatigue Delusional disorders Essential (primary) | | | hypertension Nov 24, 2016 [facility] [place] Emergency | | | Emergency Encounter for other general examination | | | Allergy status to other drugs, medicaments and biological substances | | | status Bipolar disorder, unspecified Other buttermaker helper | | | (current) drug therapy Major depressive disorder, single | | | episode, unspecified Essential (primary) hypertension | | | Recent Inpatient Visit Summary No recorded inpatient visits. | | | E.D. Visit Count (12 mo.) Facility Visits [facility] | | | System 2 [facility] [place] 1 [facility] | | | Center 1 [facility] 1 [facility] | | | Center 2 [facility] ED 1 [facility] 15 | | | Total 23 Note: Visits indicate total known visits. Care | | | Providers Provider PRC Type Phone Fax Service Dates Fam Donnelly, | | | MD TORI Primary Care Current [facility] | | | MENTAL HEALTH, Mental Health Provider ([id number]) | | | [phone] Nov 15, 2016 - Current Summer PAULINA Norman Case or Care | | | Reproductive Healthcare Assistant Current The above | | | information is provided for the sole purpose of patient treatment. | | | Use of this information beyond the terms of Data Sharing Memorandum of | | | Understanding and License Agreement is prohibited. In certain cases | | | not all visits may be represented. Consult the aforementioned | | | facilities for additional information. 2017 [employer] | | | [employer] [facility] - [place], [place] - | | | [email or web address] | | + + + + + | Procedure Note | + + | Service Account, Rtf Results Inbound - 02/22/2017 8:34 PM PDT Formatting of this | | note might be different from the original.NIRANJAN?NOTIFICATION?02/22/2017 20:33?ROMERO, | | AALIYAH? patient has registered at the [facility] and [place] | | [place] Emergency Department For more information visit: | | [email or web address] ED Care | | [facility] Updated: 12/03/16 2:35 PM Care | | Coordination:ENCOURAGE PATIENT TO USE PCP FOR FOLLOW UP AND NON-EMERGENT PROBLEMS.GIVE | | PATIENT THIS SPECIAL ASSETS OFFICER NAME AND NUMBER FOR HELP AND QUESTIONS.MARSHALL AMADORED CASE | | GLOVE MAKER [phone] are guidelines and the provider should | | exercise clinical judgment when providing care.Care HistoryBehavioral12/03/16 12:00 AM | | [facility] [employer] -- ATTN:? IVONNE | | CONKEYMedical/Surgical11/03/14 12:00 AM [facility] | | HospitalSmokerMethamphetamine abuseRecent Emergency Department Visit SummaryAdmit Date | | Facility City State Type Major Type Diagnoses or Chief Complaint Feb 22, 2017 [place] | | [facility] [place] Emergency Emergency 10,800. Cath issue Feb | | 2016 [place] Emergency Emergency dizzy Generalized | | Body Aches Neuromuscular dysfunction of bladder, unspecified Feb 18, [address] [facility] [address] | | [place] Emergency Emergency Other stimulant abuse, uncomplicated | | Other usp (current) drug therapy Nicotine dependence, unspecified, | [...] Complaint: Urinary Problem Sep | | 2016 [facility] [place] Emergency Emergency Chief | | Complaint: URO MALE Jan 25, 2017 [facility] [place] Emergency | | Emergency Bipolar disorder, unspecified Nicotine dependence, cigarettes, | | uncomplicated Other stimulant dependence, uncomplicated Dec 30, 2016 [facility] | | [place] Emergency Emergency catheter issues Urinary Catheter | | Insertion Other urethritis Retention of urine, unspecified Other stimulant | | abuse, uncomplicated Dec 03, 2016 [facility] [place] Emergency Emergency | | [...] Nov 24, 2016 [facility] | | [place] Emergency Emergency Encounter for other general examination | | Allergy status to other drugs, medicaments and biological substances status | | Bipolar disorder, unspecified Other buttermaker helper (current) drug therapy Major | | depressive disorder, single episode, unspecified Essential (primary) hypertension | | Recent Inpatient Visit SummaryNo recorded inpatient visits. E.D. Visit Count (12 | | mo.)Facility Visits [facility] 2 [facility] | | [address] 1 [facility] 1 [facility] | | Medical [place] 2 [facility] 1 [facility] 15 Total 23 Note: | | Visits indicate total known visits. Care ProvidersProvider PRC Type Phone Fax Service | | Dates Fam Donnelly MD, Primary Care Current [facility] | | MENTAL HEALTH, Mental Health Provider Nov 15, 2016 - | | Current Summer PAULINA Norman Case or Civil Designer Current | | The above information is provided for the sole purpose of patient treatment. Use of this | | information beyond the terms of Data Sharing Memorandum of Understanding and License | | Agreement is prohibited. In certain cases not all visits may be represented. Consult the | | aforementioned facilities for additional information. ? 2017 [employer] | | [employer] - [place], [place] - [email or web address] | | Nicotine dependence, cigarettes, uncomplicated | | Other stimulant dependence, uncomplicated | | | |Dec 30, 2016 [facility] [place]. [place] Emergency Emergency | | catheter issues | | Urinary Catheter Insertion | | Other urethritis | | Retention of urine, unspecified | | Other stimulant abuse, uncomplicated | | | |Dec 03[facility] [place] [place] [place] [facility] Emergency | | Bipolar disorder, unspecified | | Schizoaffective disorder, unspecified | | Other usp (current) drug therapy | | Nicotine dependence, unspecified, uncomplicated | | Anxiety disorder, unspecified | | Allergy status to other antibiotic agents status | | Allergy status to other drugs, medicaments and biological substances status | | Other fatigue | | Delusional disorders | | Essential (primary) hypertension | | | |Nov 24, 2016 [facility] [place] Emergency Emergency | | Encounter for other general examination | | Allergy status to other drugs, medicaments and biological substances status | | Bipolar disorder, unspecified | | Other buttermaker helper (current) drug therapy | | Major depressive disorder, single episode, unspecified | | Essential (primary) hypertension | | | | | | | |Recent Inpatient Visit Summary | |No recorded inpatient visits. | | | |E.D. Visit Count (12 mo.) | |Facility Visits | |[facility] 2 | |[facility] 1 | |[facility] 1 | |[facility] 1 | |[facility] 2 | |[facility] ED 1 | |[facility] 15 | |Total 23 | |Note: Visits indicate total known visits. | | | |Care Providers | |Provider PRC Type Phone Fax Service Dates | |Fam Donnelly MD, MD Primary Care Current | |[facility] Mental Health Provider Nov 15, 2016 - Current | |PAULINA Orellana Case or Civil Designer Current | | | |The above information is provided for the sole purpose of patient treatment. Use of this in formation beyond the terms of Data Sharing Memorandum of Understanding and License Agreement is prohibited. In | |certain cases not all visits may be represented. Consult the aforementioned facilities for additional information. | |? 2017 [employer] - [place], [place] - | + + + + + + + | Performing | Address | City/State/Zipcode | Phone Number | | Organization | | | | + + + + + | [facility] | [address], | [place], [place] | [phone] | | TECHNOLOGIES | [address] | [address] | | + + + + + [...]
--- OUTSIDE RECORDS SUMMARY | ~2019-05-15 | XMS | Encounter Summary ---
Demographics + + + | Address | GENERAL DELIVERY | | | [place] [address] | + + + | Home Phone [...] Team Providers + +------+ + | Care Lastex Thread Winder Name | Role | Phone | + +------+ + | [place]ha [place] | PCP | | + +------+ + Encounter Details +--------+ + + + + | Date | Type | Department | Care Team | Description | +--------+ + + + + | 02/27/ | Telephone | [facility] | Jeancarlos Marley MD | | | 2007 | | [place] [address] [address] | [address] | | | | [address] | [place], [place] | | | | | Mailcode: OC8D | [address] | | | | | [facility] | [phone] | | | | | and Healing, | | | | | | [address] | | | | | | [place], [place] | | | | | | [address] | | | | | | [phone] | | | +--------+ + + + [...]
--- OUTSIDE RECORDS SUMMARY | ~2019-05-15 | XMS | Encounter Summary ---
Demographics + + + | Address | GENERAL DELIVERY | | | [place] [address] | + + + | Home Phone [...] Team Providers + +------+ + | Care Picker/Puller Name | Role | Phone | + [...] PPV | | | | | | [address] | | | | | | Loop Mailcode: | | | | | | [address] Physician's | | | | | | [facility] | | | | | | [place] [address] | | | | | | [phone] | | | +--------+ + + + [...] | | + +---------+ + + | [facility] DEPARTMENT | | | | | RADIOLOGY | | | | + +---------+ + + documented in this encounter Visit Diagnoses Not on filedocumented in this encounter"
--- OUTSIDE RECORDS SUMMARY | ~2019-05-15 | XMS | Encounter Summary ---
Demographics + + + | Address | GENERAL DELIVERY | | | [place] [address] | + + + | Home Phone [...] Team Providers + +------+ + | Care Ply Splicer Name | Role | Phone | + [...] | | 2007 | | Center at [facility] [address] | [address] | your call.) | | | | [address] | [place], [place] | | | | | Mailcode: OC8D | [address] | | | | | [facility] | [phone] | | | | | and Healing, | | | | | | [address] | | | | | | [place], [place] | | | | | | [address] | | | | | | [phone] | | | +--------+ + + + [...]
--- OUTSIDE RECORDS SUMMARY | ~2019-05-15 | XMS | Encounter Summary ---
Demographics + + + | Address | GENERAL DELIVERY | | | [place] [address] | + + + | Home Phone | | + + + | Preferred Language | Unknown | + + + | Marital Status | Single | + + + | Advent Affiliation | NON | + + + [...] Team Providers + +------+ + | Care Weight Calculator Name | Role | Phone | + [...] | | | | Mailcode: CH10U | [place], [place] | | | | | [facility] | [address] | | | | | and Healing, | [phone] | | | | | | | | | | | Floor [place], [place] | | | | | | [address] | | | | | | [phone] | | | +--------+ + + + [...]
--- OUTSIDE RECORDS SUMMARY | ~2019-05-15 | XMS | Encounter Summary ---
Demographics + + + | Address | GENERAL DELIVERY | | | [place] [address] | + + + | Home Phone [...] + + + | Author | [facility] | + + + | Organization | [facility] | + + + | [...] Providers + +------+ + | Care Clinical Applications Specialist Name | Role | Phone | + +------+ + | Etienne Barnes PA-C | PCP | | + +------+ + Encounter Details +--------+ + + + + | Date | Type | Department | Care Team | Description | +--------+ + + + + | 06/07/ | Document-Sc | UNKNOWN DEPARTMENT | Unknown . | | | 2014 | anned | [address] [facility] | | | | | | [address] | | | | | | [place], [place] | | | | | | [address] | | | +--------+ + + + [...]
--- OUTSIDE RECORDS SUMMARY | ~2019-05-15 | XMS | Encounter Summary ---
Demographics + + + | Address | GENERAL DELIVERY | | | [place] [address] | + + + | Home Phone [...] Team Providers + +------+ + | Care Teacher Education Director Name | Role | Phone | + +------+ + | Etienne Barnes PA-C | PCP | | + +------+ + Encounter Details +--------+ + + + + | Date | Type | Department | Care Team | Description | +--------+ + + + + | 06/15/ | Document-Sc | UNKNOWN DEPARTMENT | Unknown . | | | 2014 | anned | [address] [facility] | | | | | | [address] | | | | | | [place], [place] | | | | | | [address] | | | +--------+ + + + [...]
--- OUTSIDE RECORDS SUMMARY | ~2019-05-15 | XMS | Clinical Summary ---
Demographics + + + | Address | [address] | | | [place] [address] | + + + | Home Phone | | + + + | Preferred Language | Unknown | + + + | Marital Status | | + + + | Bahai Affiliation | Unknown | + + + | Race | Unknown | + + + | Ethnic Group | Unknown | + + + Author + + + | Author | [facility] (Historical as of | | | 01-01-19) | + + + | Organization | [facility] (Historical as of | | | 01-01-19) [...] Team Providers + +------+ + | Care [place] Boatman Name | Role | Phone | + [...]
--- OUTSIDE RECORDS SUMMARY | ~2019-05-15 | XMS | Encounter Summary ---
Demographics + + + | Address | GENERAL DELIVERY | | | [place] [address] | + + + | Home Phone [...] Team Providers + +------+ + | Care Installer Soft Top Name | Role | Phone | + [...] | | | | | HOSPITAL | [place], [place] | | | | | | [address] | [address] | | | | | | [address] | Phone: | | | | | | [place], [place] | [phone] | | | | | | [address] | Fax: | | | | | | Phone: | [phone] | | | | | | [phone] | | | | | | | Fax: | | | | | | | [phone] | | +--------+--------+ + + + + [...] | | | | Mailcode: CH10U | [place], [place] | Voiding dysfunction | | | | [facility] | [address] | | | | | and Healing, | [phone] | | | | | Building | | | | | | Floor [place], [place] | | | | | | [address] | | | | | | [phone] | | | +--------+---------+ + + + [...] He is currently an inpatient in the [facility] for schizo-affective disorder. Since the onset [...] Lab) | | | | | | [facility] | | | | | | [address] | | | [address] | | | | | | [place] [address] | | | | | | [place] [address] | | | | + + + + + + + + | Specimen | + + | Urine - Catheter - | | single | + + + + + + + | Performing | Address | City/State/Zipcode | Phone Number | | Organization | | | | + + + + + | [facility] | [address] | [place] [address] | | | [facility] | | | | + + + + + documented in this encounter Visit Diagnoses + + | Diagnosis | + + | Retention of urine, unspecified | + + | Voiding dysfunction Unspecified disorder of urethra and urinary tract | + + documented in this encounter
--- OUTSIDE RECORDS SUMMARY | ~2019-05-15 | XMS | Encounter Summary ---
Demographics + + + | Address | GENERAL DELIVERY | | | [place] [address] | + + + | Home Phone | | + + + | Preferred Language | Unknown | + + + | Marital Status | Single | + + + | Hoahaoism Affiliation | NON | + + + [...] Team Providers + +------+ + | Care Electrode Cleaning Machine Operator Name | Role | Phone [...] | | | | Mailcode: CH10U | [place], [place] | | | | | [facility] | [address] | | | | | and Healing, | [phone] | | | | | [facility] | | | | | | Floor [place], [place] | | | | | | [address] | | | | | | [phone] | | | +--------+ + + + [...]
--- OUTSIDE RECORDS SUMMARY | ~2019-05-15 | XMS | Encounter Summary ---
Demographics + + + | Address | GENERAL DELIVERY | | | [place] [address] | + + + | Home Phone | | + + + | Preferred Language | Unknown | + + + | Marital Status | Single | + + + | Cheondoism Affiliation | NON | + + + [...] Team Providers + +------+ + | Care Perinatology Physician Name | Role | Phone | + [...] | | | | | retention | [place] | [address] | | | | | Urinary | STATE | Ave | | | | | Retention | HOSPITAL | [place], [place] | | | | | Procedures | [address] | [address] | | | | | REQUEST TO | [address] | Phone: | | | | | SURGERY | [place] | [phone] | | | | | BRAKES INSPECTOR | [address] | Fax: | | | | | [place] | Phone: | [phone] | | | | | INCISE/DRAIN | [phone] | | | | | | BLADDER | Fax: | | | | | | suprapubic | [phone] | | | | | | cystostomy [...] | | | | | | | [address] | | | | | | | Ave | | | | | | | [place], [place] | | | | | | | [address] | | | | | | | Phone: | | | | | | | [phone] | | | | | | | Fax: | | | | | | | [phone] | +--------+--------+ + + + + Encounter [...] | | | | Mailcode: CH10U | [place], [place] | | | | | [facility] | [address] | | | | | and Healing, | [phone] | | | | | | | | | | | Floor [facility] [place] | | | | | | [address] | | | | | | [phone] | | | +--------+ + + + [...] Armand Ordonez MD - 01/22/2011 12:51 PM [id number], former patient of Dr. Canchola, is an inpat ient at [facility] for at least 3 more years. [...] | + +--------+ + + + | IN CYSTOURETHROSCOPY | Routin | 01/22/2011 | Urinary retention | Results for this | | | e | | | procedure are in the | | | | | | results section. | + +--------+ + + + documented in this encounter Results IN CYSTOURETHROSCOPY (01/22/2011) + + + | Narrative [...]
--- OUTSIDE RECORDS SUMMARY | ~2019-05-15 | XMS | Clinical Summary ---
Demographics + + + | Address | [address] | | | [place] [address] | + + + | Home Phone | | + + + | Preferred Language | Unknown | + + + | Marital Status | | + + + | Anabaptist Affiliation | Unknown | + + + | Race | Unknown | + + + | Ethnic Group | Unknown | + + + Author + + + | Author | [facility] (Historical as of | | | 01-01-19) | + + + | Organization | [facility] (Historical as of | | | 01-01-19) [...] Team Providers + +------+ + | Care Brand Advisor Name | Role | Phone | + [...]
--- OUTSIDE RECORDS SUMMARY | ~2019-05-15 | XMS | Encounter Summary ---
Demographics + + + | Address | GENERAL DELIVERY | | | [place] [address] | + + + | Home Phone [...] Team Providers + +------+ + | Care Analytical Consultant Name | Role | Phone | [...] Hepatitis C | | 2007 | | [place] [address] [address] | [address] | without Mention of | | | | [address] | [place], [place] | Hepatic Coma | | | | Mailcode: OC8D | [address] | (Primary Dx) | | | | [facility] | [phone] | | | | | and Healing, | | | | | | [address] | | | | | | [place], [place] | | | | | | [address] | | | | | | [phone] | | | +--------+ + + + [...] Performed At | + + + | [id number] Estimated GFR > 60 mL/min/1.73 sq m if non- | [facility] | | [id number] Estimated GFR > 60 mL/min/1.73 sq m [...] | + + + + + | [facility] DEPARTMENT | [address] | [place] [address] | | | PATHOLOGY | [address] | | | + + + + + | [facility] | [address] | [place] [address] | | | PATHOLOGY | [address] [...] | + + + + + | [facility] DEPARTMENT OF | [address] | [place] [address] | | | PATHOLOGY | [address] | | | + + + + + | [facility] | [facility] [address] | [place] [address] | | | PATHOLOGY | [address] [...] | + + + + + | [facility] DEPARTMENT OF | [address] | [place] [address] | | | PATHOLOGY | [address] | | | + + + + + | [facility] DEPARTMENT OF | [address] | [place] [address] | | | PATHOLOGY | [address] [...] | + + + + + | [facility] | [address] | [place] [address] | | | PATHOLOGY | [address] | | | + + + + + | [facility] | [address] | [place] [address] | | | PATHOLOGY | [address] [...] | + + + + + | [facility] | [address] | [place] [address] | | | PATHOLOGY | [address] | | | + + + + + | [facility] | [address] | [place] [address] | | | PATHOLOGY | [address] [...] | | | | | | [facility] | | | | | | [place]. | | | | + + + + + + + + | Specimen | + + | | + + + + + + + | Performing | Address | City/State/Zipcode | Phone Number | | Organization | | | | + + + + + | [facility] | [address] | [place] [address] | | | LABORATORY | | | [...] + + | Test performed by [facility]. | | + + + + + + + + | Performing | Address | City/State/Zipcode | Phone Number | | Organization | | | | + + + + + | [facility] | [address] | [place] [address] | | | LABORATORY | | | [...] effective 03/08/07 | | | [facility] | | | [address] [place], [place] | | | [address] | | + + + + + + + + | Performing | Address | City/State/Zipcode | Phone Number | | Organization | | | | + + + + + | [facility] | [address] | [place] [address] | | | LABORATORY | | | [...] and TIBC, Serum Test performed by [facility] | | | [facility]. | | + + + + + + + + | Performing | Address | City/State/Zipcode | Phone Number | | Organization | | | | + + + + + | [facility] | [address] | [place] [address] | | | LABORATORY | | | [...] | | | | | determined bythe [facility] | | | | | [...] | | | | | Improvement Act [id number]. | | | | | | The [...] + + + + | [facility] | [email or web address] [address] [employer] | [place] [address] | | | [facility] | [address] | | | | | [place]. | | | + + + + + documented in this encounter Visit Diagnoses + + | Diagnosis | + + | Chronic hepatitis C without mention of hepatic coma - Primary | + + documented in this encounter
--- OUTSIDE RECORDS SUMMARY | ~2019-05-15 | XMS | Encounter Summary ---
Demographics + + + | Address | GENERAL DELIVERY | | | [place] [address] | + + + | Home Phone [...] Team Providers + +------+ + | Care Steam Finisher Name | Role | Phone | + [...] | | | | Mailcode: CH10U | [place], [place] | and counseling | | | | [facility] | [address] | | | | | and Healing, | [phone] | | | | | [facility] | | | | | | Floor [place], [place] | | | | | | [address] | | | | | | [phone] | | | +--------+ + + + [...]
--- OUTSIDE RECORDS SUMMARY | ~2019-05-15 | XMS | Encounter Summary ---
Demographics + + + | Address | GENERAL DELIVERY | | | [place] [address] | + + + | Home Phone [...] Team Providers + +------+ + | Care Horse Breeder Name | Role | Phone | + [...] | | | | | HOSPITAL | [place], [place] | | | | | | [address] | [address] | | | | | | [address] | Phone: | | | | | | [place], [place] | [phone] | | | | | | [address] | Fax: | | | | | | Phone: | [phone] | | | | | | [phone] | | | | | | | Fax: | | | | | | | [phone] | | +--------+--------+ + + + + [...] | | | | Mailcode: CH10U | [place], [place] | Voiding dysfunction | | | | [facility] | [address] | | | | | and Healing, | [phone] | | | | | Building | | | | | | Floor [place], [place] | | | | | | [address] | | | | | | [phone] | | | +--------+---------+ + + + [...] Lab) | | | | | | [facility] | | | | | | [address] | | | | [address] | | | | | | [place] [address] | | | | | | [place] [address] | | | | + + + + + + + + | Specimen | + + | Urine - Catheter - | | single | + + + + + + + | Performing | Address | City/State/Zipcode | Phone Number | | Organization | | | | + + + + + | [facility] | [address] | [place] [address] | | | [facility] | | | | + + + + + documented in this encounter Visit Diagnoses + + | Diagnosis | + + | Retention of urine, unspecified | + + | Voiding dysfunction Unspecified disorder of urethra and urinary tract | + + documented in this encounter
--- OUTSIDE RECORDS SUMMARY | ~2019-05-15 | XMS | Encounter Summary ---
Demographics + + + | Address | GENERAL DELIVERY | | | [place] [address] | + + + | Home Phone [...] Providers + +------+ + | Care Marine Structural Designer Name | Role | Phone | + +------+ + PCP | Unavailable | + +------+ + Reason for Visit + + + | Reason | Comments | + + + | Blood Test Results | Outside labs from [facility] 06/08/14. | + + + Encounter Details +--------+ + + + + | Date | Type | Department | Care Team | Description | +--------+ + + + + | 06/13/ | Documentati | [facility] | Jeancarlos Marley MD | Blood Test Results | | 2014 | on | Center at [facility] [address] | [address] | (Outside labs from | | | | [address] | [place], [place] | [facility] | | | | Mailcode: OC8D | [address] | 06/08/14.) | | | | [facility] | [phone] | | | | | and Healing, | | | | | | [address] | | | | | | [place], [place] | | | | | | [address] | | | | | | [phone] | | | +--------+ + + + [...] | + +---------+ + + | NON [facility] LAB | | | | + +---------+ + + documented in this encounter Visit Diagnoses Not on filedocumented in this encounter"
--- OUTSIDE RECORDS SUMMARY | ~2019-05-15 | XMS | Encounter Summary ---
Demographics + + + | Address | GENERAL DELIVERY | | | [place] [address] | + + + | Home Phone [...] Team Providers + +------+ + | Care Lounge Car Attendant Name | Role | Phone | [...] | Appointment | | 2009 | | [address] | [address] | | | | | Mailcode: CH10U | [place], [place] | | | | | [facility] | [address] | | | | | and Healing, | [phone] | | | | | | | | | | | Floor [place], [place] | | | | | | [address] | | | | | | [phone] | | | +--------+ + + + [...]
--- OUTSIDE RECORDS SUMMARY | ~2019-05-15 | XMS | Encounter Summary ---
Demographics + + + | Address | GENERAL DELIVERY | | | [place] [address] | + + + | Home Phone [...] Team Providers + +------+ + | Care Leather Novelty Parts Cutter Name | Role | Phone | [...] Required | | hepatitis C | [address] | [address] | | | | | without | [address] | Ave | | | | | mention of | [place], | [place], [place] | | | | | hepatic coma | [place] [address] | [address] | | | | | Procedures | Phone: | Phone: | | | | | CONSULT TO | [phone] | [phone] | | | | | HEPATOLOGY | Fax: | Fax: | | | | | | [phone] | [phone] | +--------+ + + + + + Encounter Details +--------+---------+ + + + | Date | Type | Department | Care Team | Description | +--------+---------+ + + + | 01/25/ | Office | Digestive Health | Jeancarlos Rich MD | Chronic hepatitis C | | 2011 | Visit | Center at [facility] [address] | [address] | without mention of | | | | [address] | [place], [place] | hepatic coma | | | | Mailcode: OC8D | [address] | (Primary Dx) | | | | [facility] | [phone] | | | | | and Healing, | | | | | | [address] | | | | | | [place], [place] | | | | | | [address] | | | | | | [phone] | | | +--------+---------+ + + + [...] infected in 2002 1.4)Obese 1.5) committed to [facility] in [place] until 2014 1.6 ) no liver biopsy to date 1.7) vaccinated for HAV/HBV in the past PAST MEDICAL HISTORY 2) HTN 3) Schizophrenia and anxiety:now committed to [facility] 4) obesity Current [...] interim he has been committed to the [facility] facility. At this time he has no clinical evidence of cirrhosis. Unfortunat birgit the current HCV treatment regimen still includes interferon, which will exacerbate any u nderlying psychiatric issues. Unless he can be safely watched and protected in the [facility], there will not be a way to use interferon-based therapy. It would be unreasonable to consider a liver biopsy (can be done in [place] thru radiology, ie ultrasound guided) to asses s degree of liver fibrosis, before even contemplating any therapy. Recommend thru Drs. Robin/Mike patients get the followin. CMP, CBC, plts, diff, INR 2. Decide if patient can be treated safely in [facility] with interferon regimen. If possible, would recommend liver biopsy (in [place]) and then will results in hand return to s [facility]. 3) If interferon-based therapy is deemed too [...]
--- OUTSIDE RECORDS SUMMARY | ~2019-05-15 | XMS | Encounter Summary ---
Demographics + + + | Address | GENERAL DELIVERY | | | [place] [address] | + + + | Home Phone [...] Team Providers + +------+ + | Care Multifocal Lens Assembler Name | Role | Phone | [...] | abdominal | [address] | [address] | | | | | pain | [facility] | Ave | | | | | Neurogenic | Rd | [facility] [place] | | | | | bladder | [facility] [place] | [address] | | | | | Procedures | [address] | Phone: | | | | | CONSULT TO | Phone: | [phone] | | | | | UROLOGY | [phone] | Fax: | | | | | | Fax: | [phone] | | | | | | [phone] | | +--------+--------+ + + + + Reason for Visit + + + | Reason | Comments | + + + | Catheter Problem | | + + + Encounter Details +--------+ + + + + | Date | Type | Department | Care Team | Description | +--------+ + + + + | 02/22/ | Emergency | [facility] Emergency | Fe Walter, | | | 2017 - | | Department [address] | Edith Kelley MD 900 | | | | | [facility] | [facility] | | | 02/23/ | | [facility] | [address], [place] | | | 2017 | | [place], [place] | [address] | | | | | [address] | | | | | | [phone] | | | +--------+ + + + [...] for coming to the Emergency Department at [facility] for your care. You [...] other well. -Be careful about taking other qcsq-nfx-febpull medicines, which may contain acetaminophen or ibuprofen [...] your primary care doctor for follow-up and [facility]. Care delivered in the Emergency Department should not be considered as a substitute for [facility] care and/or specialist care for ongoing medical issues, and it is important that you fo llow up as described above. Thank you for letting us care for you at the [facility] Emergency Department today. Note: [...] [facility] | [address] | [place], [place] | | | ELISSA POINT OF CARE | [address] | [address] | | | TESTS | | | [...] [facility] | [address] | [place] [address] | | | SERVICES, CORE | [address] [...] [facility] | [address] | [place] [address] | | | NANCY MAX | [address] [...] + | DIAL - AIRPORT - | [address] | [place] [address] | | | [place] | | | | + + + [...] [facility] | [address] | [place] [address] | | | NANCY MAX | [address] [...] | + + + + + | [facility] | [address] | [place] [address] | | | NANCY MAX | [address] [...] | + + + + + | [employer] | [address] | [place] [address] | | | MANSOOR, NANCY | [address] [...] | + + + + + | [facility] | [address] | [place] [address] | | | SERVICES, CORE | [address]NA [...] [facility] | [address] | [place] [address] | | | SERVICES, CORE | [address]NA [...] | + + + + + | [facility] | [address] [facility] | [place] [address] | | | SERVICES, | [address] | | | | TRANSFUSION MEDICINE | | | | + + + + + ED INFORMATION EXCHANGE (02/22/2017 8:33 PM PDT) + + | Specimen | + + | | + + + + + | Narrative | Performed At | + + + | [id number] This patient has registered at the | [facility] | | [facility] Emergency Department For more | MEDICAL | | information visit: | TECHNOLOGIES | | [email or web address] | | | [id number] ED Care Guidelines from [facility] Last | | | Updated: 12/03/16 2:35 PM Care Coordination: ENCOURAGE PATIENT | | | TO USE PCP FOR FOLLOW UP AND NON-EMERGENT PROBLEMS. GIVE PATIENT THIS | | | ACQUISITIONS EDITOR NAME AND NUMBER FOR HELP AND QUESTIONS. MARSHALL AMADOR ED | | | MACHINE SHOP WORKER [facility] [phone] These are guidelines | | | and the provider should exercise clinical judgment when providing | | | care. Care History Behavioral 12/03/16 12:00 AM [facility] | | | Hospital PT [facility] -- ATTN:IVONNE | | | [place] Medical/Surgical 11/03/14 12:00 AM Jonn Luns[facility] | | | Hospital Smoker Methamphetamine abuse Recent Emergency | | | Department Visit Summary Admit Date Facility City State Type Major | | | Type Diagnoses or Chief Complaint Feb 22, 2017 [facility] | | | [facility] [place] Emergency Emergency 10,800. | | | Cath issue Feb 20, [address] [facility] [place]. [place] | | | Emergency Emergency dizzy Generalized Body Aches | | | Neuromuscular dysfunction of bladder, unspecified Feb 18, 2017 [facility] | | | [place] Emergency Emergency Other stimulant [...] unspecified Feb 16, 2017 | | | [facility] Raj[place]ny [place] Emergency Emergency Chief Complaint: | | | Urinary Problem Feb 03, 2017 [facility] | | | [place] Emergency Emergency Chief Complaint: URO MALE Jan | | | 2016 [facility] [place] Emergency | | | Emergency Bipolar disorder, unspecified Nicotine | | | dependence, cigarettes, uncomplicated Other stimulant | | | dependence, uncomplicated Dec 30, 2016 [facility] | | | [place] Emergency Emergency catheter issues Urinary | | | Catheter Insertion Other urethritis Retention of urine, | | | unspecified Other stimulant abuse, uncomplicated Dec 03, | | | 2016 [facility] [place] Emergency Emergency Bipolar | [...] | | | hypertension Nov 24, 2016 [facility] 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 | | | E.D. Visit Count (12 mo.) Facility Visits [facility] | | | System 2 [facility] 1 [facility] | | | Center 1 [facility] 1 [facility] | | | Center 2 [facility] 1 [facility] 15 | | | Total 23 Note: Visits indicate total known visits. Care | | | Providers Provider PRC Type Phone Fax Service Dates Fam Donnelly, | | | MD TORI Primary Care Current [facility] | | | MENTAL HEALTH, Mental Health Provider ([phone]) | | | [phone] Nov 15, 2016 - Current Summer PAULINA Norman Case or Care | | | Log Manager Current The above | | | [...] | | facilities for additional information. 2017 [employer] | | | [employer] - [place], [place] - | | | [email or web address] | | + + + + + | Procedure Note | + + | Service Account, Rtf Results Inbound - 02/22/2017 8:34 PM PDT Formatting of this | | note might be different from the original.NIRANJAN?NOTIFICATION?02/22/2017 20:33?ROMERO, | | AALIYAH? patient has registered at the [facility] [employer] | | [place] Emergency Department For more information visit: | | [email or web address] ED Care | | [facility]: 12/03/16 2:35 PM Care | | Coordination:ENCOURAGE PATIENT TO USE PCP FOR FOLLOW UP AND NON-EMERGENT PROBLEMS.GIVE | | PATIENT THIS ACQUISITIONS EDITOR NAME AND NUMBER FOR HELP AND QUESTIONS.MARSHALL AMADORED CASE | | DRIVE AWAY DRIVER [phone] are guidelines and the provider should | | exercise clinical judgment when providing care.Care HistoryBehavioral12/03/16 12:00 AM | | [facility] [employer] -- ATTN:? IVONNE | | CONKEYMedical/Surgical11/03/14 12:00 AM [facility] | | HospitalSmokerMethamphetamine abuseRecent Emergency Department Visit SummaryAdmit Date | | Facility City State Type Major Type Diagnoses or Chief Complaint Feb 22, 2017 [place] | | [facility] [place] Emergency Emergency 10,800. Cath issue Feb | | 2016 [place]. [place] Emergency Emergency dizzy Generalized | | Body [...] Urinary Problem Sep | | 2016 [facility] [place] Emergency Emergency Chief | | Complaint: URO MALE Jan 25, 2017 [facility] [place] Emergency | | Emergency Bipolar disorder, unspecified Nicotine dependence, cigarettes, | | uncomplicated Other stimulant dependence, uncomplicated Dec 30, 2016 Steph[facility] Michelle | | [place]. [place] Emergency Emergency catheter issues Urinary Catheter | | Insertion Other urethritis Retention of urine, unspecified Other stimulant | | abuse, uncomplicated Dec 03, 2016 [facility] [place] Emergency Emergency | | [...] hypertension Nov 24, 2016 [facility] | | 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 E.D. Visit Count (12 | | mo.)Facility Visits [facility] 2 [facility] | | [address] 1 [facility] 1 [facility] | | Medical [place] 2 [facility] ED 1 [facility] 15 Total 23 Note: | | Visits indicate total known visits. Care ProvidersProvider PRC Type Phone Fax Service | | Dates Fam Donnelly MD, Primary Care Current [facility] | | MENTAL HEALTH, Mental Health Provider Nov 15, 2016 - | | Current Summer PAULINA Norman Case or Legal Manager Current | | The above information is provided for the sole purpose of patient treatment. Use of this | | information beyond the terms of Data Sharing Memorandum of Understanding and License | | Agreement is prohibited. In certain cases not all visits may be represented. Consult the | | aforementioned facilities for additional information. ? 2017 [employer] | | [employer] - [place], [place] - [email or web address] | | Nicotine dependence, cigarettes, uncomplicated | | Other stimulant dependence, uncomplicated | | | |Dec 30, 2016 [facility] [place]ie [place]. [place] Emergency Emergency | | catheter issues | | Urinary Catheter Insertion | | Other urethritis | | Retention of urine, unspecified | | Other stimulant abuse, uncomplicated | | | |Dec 03, 2016 [facility] [place] [place] [facility] Emergency [...] hypertension | | | |Nov 24, 2016 [facility] 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 | | | |E.D. Visit Count (12 mo.) | |Facility Visits | |[facility] 2 | |[facility] 1 | |[facility] 1 | |[facility] 1 | |[facility] 2 | |[facility] 1 | |[facility] 15 | |Total 23 | |Note: Visits indicate total known visits. | | | |Care Providers | |Provider PRC Type Phone Fax Service Dates | |Fam Donnelly MD, MD Primary Care Current | |[facility] Mental Health Provider Nov 15, 2016 - Current | |PAULINA Orellana Case or Legal Manager Current | | | |The above information is provided for the sole purpose of patient treatment. Use of this in formation beyond the terms of Data Sharing Memorandum of Understanding and License Agreement is prohibited. In | |certain cases not all visits may be represented. Consult the aforementioned facilities for additional information. | |? 2017 [employer] - [place], [place] - [email or web address] | + + + + + + + | Performing | Address | City/State/Zipcode | Phone Number | | Organization | | | | + + + + + | [employer] | [address], | [place], [place] | [phone] | | TECHN[employer]IES | [address] | [address] | | + + + + + [...]
--- OUTSIDE RECORDS SUMMARY | ~2019-05-15 | XMS | Encounter Summary ---
Demographics + + + | Address | GENERAL DELIVERY | | | [place] [address] | + + + | Home Phone [...] Team Providers + +------+ + | Care Mechanical Engineering Director Name | Role | Phone | [...] Abdominal pain | | 2008 | | [place] [address] [address] | [address] | | | | | [address] | [place], [place] | | | | | Mailcode: OC8D | [address] | | | | | [facility] | [phone] | | | | | and [place], | | | | | | [address] | | | | | | [place], [place] | | | | | | [address] | | | | | | [phone] | | | +--------+ + + + [...]
--- OUTSIDE RECORDS SUMMARY | ~2019-05-15 | XMS | Encounter Summary ---
Demographics + + + | Address | GENERAL DELIVERY | | | [place] [address] | + + + | Home Phone [...] Team Providers + +------+ + | Care Auto Service Dispatcher Name | Role | Phone | [...] | Appointment | | 2009 | | [address] | [address] | | | | | Mailcode: CH10U | [place], [place] | | | | | [facility] | [address] | | | | | and Healing, | [phone] | | | | | | | | | | | Floor [place], [place] | | | | | | [address] | | | | | | [phone] | | | +--------+ + + + [...]
--- OUTSIDE RECORDS SUMMARY | ~2019-05-15 | XMS | Encounter Summary ---
Demographics + + + | Address | GENERAL DELIVERY | | | [place] [address] | + + + | Home Phone [...] Team Providers + +------+ + | Care Property Management Intern Name | Role | Phone | + +------+ + | [place] | PCP | | + +------+ + Encounter Details +--------+ + + + + | Date | Type | Department | Care Team | Description | +--------+ + + + + | 08/11/ | Telephone | Digestive Health | Jeancarlos Marley MD | | | 2008 | | Center at [facility] [address] | [address] | | | | [address] | [place], [place] | | | | | Mailcode: Center | [address] | | | | | for Health and | [phone] | | | | | [facility] 2 | | | | | | [place], [place] | | | | | | [address] | | | | | | [phone] | | | +--------+ + + + [...] | + + + + + | [facility] | [address] [facility] | [place] [address] | | | PATHOLOGY | [address] | | | + + + + + | [facility] | [address] [facility] | [place] [address] | | | PATHOLOGY | [address] [...] | + + + + + | [facility] | [address] [facility] | [place] [address] | | | PATHOLOGY | [address] | | | + + + + + | [facility] | [address] [facility] | [place] [address] | | | PATHOLOGY | [address] [...] Performed At | + + + | [id number] Estimated GFR > 60 mL/min/1.73 sq m if non- | [facility] | | [place] [id number] Estimated GFR > 60 mL/min/1.73 sq m if | DEPARTMENT OF | | [place] GFR is estimated using the MDRD equation [...] + + + + + | [facility] DEPARTMENT | [address] [facility] | [place] [address] | | | PATHOLOGY | [address] | | | + + + + + | [facility] | [address] | [place] [address] | | | PATHOLOGY | [address] | | | + + + + + documented in this encounter Visit Diagnoses + + | Diagnosis | + + | Chronic hepatitis C without mention of hepatic coma - Primary | + + documented in this encounter"
--- OUTSIDE RECORDS SUMMARY | ~2019-05-15 | XMS | Encounter Summary ---
Demographics + + + | Address | GENERAL DELIVERY | | | [place] [address] | + + + | Home Phone [...] Team Providers + +------+ + | Care Rescue Boat Operator Name | Role | Phone | [...] Required | | hepatitis C | [address] | [address] [facility] | | | | | without | [address] | Ave | | | | | mention of | [place]n [place], | [place], [place] | | | | | hepatic coma | [place] [address] | [address] | | | | | Procedures | Phone: | Phone: | | | | | CONSULT TO | [phone] | [phone] | | | | | HEPATOLOGY | Fax: | Fax: | | | | | | [phone] | [phone] | +--------+ + + + + + Encounter Details +--------+---------+ + + + | Date | Type | Department | Care Team | Description | +--------+---------+ + + + | 06/16/ | Office | Dig[facility]ive Health | Jeancarlos Marley MD | Chronic Hepatitis C | | 2007 | Visit | Center at [facility] [address] | [address] | without Mention of | | | | [address] | [place], [place] | Hepatic Coma | | | | Mailcode: OC8D | [address] | (Primary Dx) | | | | [facility] | [phone] | | | | | and Healing, | | | | | | [address] | | | | | | [place], [place] | | | | | | [address] | | | | | | [phone] | | | +--------+---------+ + + + [...] + + | Performing | Address | City/State/[facility] Cent[facility]ode | Phone Number | | [...] | | | | | determined bythe [facility] | | | | | [...] | | | | | Improvement Act [id number]. | | | | | | The [...] + + + + | [facility] | [facility] | [place] [address] | | | GENETICS LABS | [address] | | | | | AVE. [...] Iron and TIBC, Serum Test performed by [facility] | | | [facility]. | | + + + + + + + + | Performing | Address | City/State/Zipcode | Phone Number | | Organization | | | | + + + + + | [facility] | [address] | [place] [address] | | | LABORATORY | | | [...] | | | RLB ([address] [facility]) [facility] [address] | | | [address] [place], [place] | | | [address] | | + + + + + + + + | Performing | Address | City/State/Zipcode | Phone Number | | Organization | | | | + + + + + | [facility] | [address] | [place] [address] | | | LABORATORY | | | [...] + + + | Test performed by [facility]. | | + + + + + + + + | Performing | Address | City/State/Zipcode | Phone Number | | Organization | | | | + + + + + | [facility] | [address] | [place] [address] | | | LABORATORY | | | [...] by | | | | | | [facility] | | | | | | [facility]. | | | | + + + + + + + + | Specimen | + + | | + + + + + + + | Performing | Address | City/State/Zipcode | Phone Number | | Organization | | | | + + + + + | [facility] | [address] | [place] [address] | | | LABORATORY | | | [...] + | [facility] DEPARTMENT OF | [address] [facility] | [place] [address] | | | PATHOLOGY | [address] | | | + + + + + | [facility] DEPARTMENT OF | [address] [facility] | [place] [address] | | | PATHOLOGY | [address] [...] [facility] DEPARTMENT OF | [facility] | [place] [address] | | | PATHOLOGY | [address] | | | + + + + + | [facility] DEPARTMENT OF | [address] | [place] [address] | | | PATHOLOGY | [address] | | | + + + + + documented in this encounter Visit Diagnoses + + | Diagnosis | + + | Chronic hepatitis C without mention of hepatic coma - Primary | + + documented in this encounter
--- OUTSIDE RECORDS SUMMARY | ~2019-05-15 | XMS | Encounter Summary ---
Demographics + + + | Address | GENERAL DELIVERY | | | [place] [address] | + + + | Home Phone [...] + +------+ + | Care Director Of Pulmonary Unit Name | Role | Phone | + [...] | | | | Mailcode: CH10U | [place], [place] | | | | | [facility] | [address] | | | | | and [place], | [phone] | | | | | [facility] | | | | | | Floor [place], [place] | | | | | | [address] | | | | | | [phone] | | | +--------+ + + + [...]
--- OUTSIDE RECORDS SUMMARY | ~2019-05-15 | XMS | Encounter Summary ---
Demographics + + + | Address | GENERAL DELIVERY | | | [place] [address] | + + + | Home Phone [...] Team Providers + +------+ + | Care Technical Support Representative Name | Role | Phone | [...] | | | | Mailcode: CH10U | [place], [place] | | | | | [facility] | [address] | | | | | and [place], | [phone] | | | | | [facility] | | | | | | Floor [place], [place] | | | | | | [address] | | | | | | [phone] | | | +--------+ + + + [...]
--- OUTSIDE RECORDS SUMMARY | ~2019-05-15 | XMS | Encounter Summary ---
Demographics + + + | Address | GENERAL DELIVERY | | | [place] [address] | + + + | Home Phone [...] Team Providers + +------+ + | Care Mold Bunch Trimmer Name | Role | Phone | + [...] | | | | | | | [address] | | | | | | | Ave | | | | | | | [place], [place] | | | | | | | [address] | | | | | | | Phone: | | | | | | | [phone] | | | | | | | Fax: | | | | | | | [phone] | +--------+--------+ + + + + Encounter Details +--------+ + + + + | Date | Type | Department | Care Team | Description | +--------+ + + + + | 03/17/ | Procedure | Urology Adult | Armand Ordonez MD | Follow-up visit | | 2010 | | [address] | [address] | | | | | Mailcode: CH10U | [place], [place] | | | | | [facility] | [address] | | | | | and Healing, | [phone] | | | | | | | | | | | Floor [facility] [place] | | | | | | [address] | | | | | | [phone] | | | +--------+ + + + [...] month Facility will likely change care to [place] due to distance. documented in this encounter Plan of Treatment Not on filedocumented as of this encounter Visit Diagnoses + + | Diagnosis | + + | Urinary retention - Primary Retention of urine, unspecified | + + documented in this encounter"
--- OUTSIDE RECORDS SUMMARY | ~2019-05-15 | XMS | Encounter Summary ---
Demographics + + + | Address | GENERAL DELIVERY | | | [place] [address] | + + + | Home Phone [...] Team Providers + +------+ + | Care Cattle And Wheat Farmer Name | Role | Phone | + +------+ + | Lakesha River | PCP | | + +------+ + Encounter Details +--------+ + + + + | Date | Type | Department | Care Team | Description | +--------+ + + + + | 02/27/ | Telephone | [facility] | Jeancarlos Marley MD | | | 2007 | | [place] [address] [address] | [address] | | | | [address] | [place], [place] | | | | | Mailcode: OC8D | [address] | | | | | [facility] | [phone] | | | | | and Healing, | | | | | | [address] | | | | | | [place], [place] | | | | | | [address] | | | | | | [phone] | | | +--------+ + + + [...]
--- OUTSIDE RECORDS SUMMARY | ~2019-05-15 | XMS | Encounter Summary ---
Demographics + + + | Address | GENERAL DELIVERY | | | [place] [address] | + + + | Home Phone [...] Providers + +------+ + | Care Package Dyer Name | Role | Phone | + [...] | | | Mailcode: CH10U | [place], [place] | | | | | [facility] | [address] | | | | | and Healing, | [phone] | | | | | [facility] | | | | | | Floor [place], [place] | | | | | | [address] | | | | | | [phone] | | | +--------+ + + + [...]
--- OUTSIDE RECORDS SUMMARY | ~2019-05-15 | XMS | Encounter Summary ---
Demographics + + + | Address | GENERAL DELIVERY | | | [place] [address] | + + + | Home Phone [...] Team Providers + +------+ + | Care Cooling Tower Operator Name | Role | Phone | + +------+ + PCP | Unavailable | + +------+ + Encounter Details +--------+ + + + + | Date | Type | Department | Care Team | Description | +--------+ + + + + | 06/14/ | Document-Sc | Digestive Health | Jeancarlos Marley MD | | | 2015 | anned | [place] [address] [address] | [address] | | | | | [address] | [place], [place] | | | | | Mailcode: OC8D | [address] | | | | | [facility] | [phone] | | | | | and Healing, | | | | | | [address] | | | | | | [place], [place] | | | | | | [address] | | | | | | [phone] | | | +--------+ + + + [...]
--- OUTSIDE RECORDS SUMMARY | ~2019-05-15 | XMS | Encounter Summary ---
Demographics + + + | Address | GENERAL DELIVERY | | | [place] [address] | + + + | Home Phone [...] Team Providers + +------+ + | Care Retort Forker Name | Role | Phone | + +------+ + | Etienne Barnes PA-C | PCP | | + +------+ + Encounter Details +--------+ + + + + | Date | Type | Department | Care Team | Description | +--------+ + + + + | 06/07/ | Document-Sc | UNKNOWN DEPARTMENT | Unknown . | | | 2014 | anned | [address] [facility] | | | | | | [address] | | | | | | [place], [place] | | | | | | [address] | | | +--------+ + + + [...]
--- OUTSIDE RECORDS SUMMARY | ~2019-05-15 | XMS | Encounter Summary ---
Demographics + + + | Address | GENERAL DELIVERY | | | [place] [address] | + + + | Home Phone [...] Team Providers + +------+ + | Care Raw Stock Drier Tender Name | Role | Phone | [...] | | | | Mailcode: CH10U | [place], [place] | | | | | [facility] | [address] | | | | | and [place], | [phone] | | | | | [facility] | | | | | | Floor [place], [place] | | | | | | [address] | | | | | | [phone] | | | +--------+ + + + [...]
--- OUTSIDE RECORDS SUMMARY | ~2019-05-15 | XMS | Encounter Summary ---
Demographics + + + | Address | GENERAL DELIVERY | | | [place] [address] | + + + | Home Phone [...] Providers + +------+ + | Care Health Consultant Name | Role | Phone | [...] | | | Ave Mailcode: CH6D | [place], [place] | | | | | [facility] | [address] | | | | | and Healing, | [phone] | | | | | [facility] | | | | | | Floor [place], [place] | | | | | | [address] | | | | | | [phone] | | | +--------+ + + + [...]
--- OUTSIDE RECORDS SUMMARY | ~2019-05-15 | XMS | Encounter Summary ---
Demographics + + + | Address | GENERAL DELIVERY | | | [place] [address] | + + + | Home Phone [...] Team Providers + +------+ + | Care Sole Painter Name | Role | Phone | + [...] Abdominal pain | | 2008 | | [place] [address] [address] | [address] | | | | | [address] | [place], [place] | | | | | Mailcode: OC8D | [address] | | | | | [facility] | [phone] | | | | | and [place], | | | | | | [address] | | | | | | [place], [place] | | | | | | [address] | | | | | | [phone] | | | +--------+ + + + [...]
--- OUTSIDE RECORDS SUMMARY | ~2019-05-15 | XMS | Encounter Summary ---
Demographics + + + | Address | GENERAL DELIVERY | | | [place] [address] | + + + | Home Phone [...] Providers + +------+ + | Care Glass Maker Name | Role | Phone | [...] | | | | | | Loop [place], [place] | | | | | | [address] | | | | | | [phone] | | | +--------+------+ + + + [...] [facility] | [address] | [place] [address] | | | PATHOLOGY | [address] | | | + + + + + | [facility] | [address] | [place] [address] | | | PATHOLOGY | [address] [...] [facility] | [address] | [place] [address] | | | PATHOLOGY | [address] | | | + + + + + | [facility] DEPARTMENT OF | [address] | [place] [address] | | | PATHOLOGY | [address] [...] [facility] | [address] | [place] [address] | | | PATHOLOGY | [address] | | | + + + + + | [facility] | [address] | [place] [address] | | | PATHOLOGY | [address] [...] Performed At | + + + | [id number] Estimated GFR > 60 mL/min/1.73 sq m if non- | [facility]SU | | [place] 999343 Estimated GFR > 60 mL/min/1.73 sq m if | DEPARTMENT OF | | [place] GFR is estimated using the MDRD equation [...] + + + + + | [facility] DEPARTMENT | [address] | [place] [address] | | | PATHOLOGY | [address] | | | + + + + + | [facility] | [address] | [place] [address] | | | PATHOLOGY | [address] | | | + + + + + documented in this encounter Visit Diagnoses + + | Diagnosis | + + | Chronic hepatitis C without mention of hepatic coma | + + documented in this encounter"
--- OUTSIDE RECORDS SUMMARY | ~2019-05-15 | XMS | Encounter Summary ---
Demographics + + + | Address | GENERAL DELIVERY | | | [place] [address] | + + + | Home Phone [...] Team Providers + +------+ + | Care Lead Pressman Roto Gravure Printing Name | Role | Phone | + [...] Lab Order | | 2014 | | [place] at [facility] [address] | [address] | | | | | [address] | [facility] [place] | | | | | Mailcode: OC8D | [address] | | | | | [facility] | [phone] | | | | | and Healing, | | | | | | [address] | | | | | | [place], [place] | | | | | | [address] | | | | | | [phone] | | | +--------+ + + + [...]
--- OUTSIDE RECORDS SUMMARY | ~2019-05-15 | XMS | Encounter Summary ---
Demographics + + + | Address | GENERAL DELIVERY | | | [place] [address] | + + + | Home Phone [...] Team Providers + +------+ + | Care Freight Unloader Name | Role | Phone | + +------+ + | Etienne Barnes PA-C | PCP | | + +------+ + Encounter Details +--------+ + + + + | Date | Type | Department | Care Team | Description | +--------+ + + + + | 09/14/ | Document-Sc | UNKNOWN DEPARTMENT | Unknown . | | | 2014 | anned | [address] [facility] | | | | | | [address] | | | | | | [place], [place] | | | | | | [address] | | | +--------+ + + + [...]
--- OUTSIDE RECORDS SUMMARY | ~2019-05-15 | XMS | Encounter Summary ---
Demographics + + + | Address | GENERAL DELIVERY | | | [place] [address] | + + + | Home Phone [...] Providers + +------+ + | Care Supervisor Post Wave Name | Role | Phone | + +------+ + | aJe Robin MD | PCP | | + [...] | | | | Mailcode: CH10U | [place], [place] | | | | | [facility] | [address] | | | | | and Healing, | [phone] | | | | | | | | | | | Floor [place], [place] | | | | | | [address] | | | | | | [phone] | | | +--------+ + + + [...]
--- OUTSIDE RECORDS SUMMARY | ~2019-05-15 | XMS | Encounter Summary ---
Demographics + + + | Address | GENERAL DELIVERY | | | [place] [address] | + + + | Home Phone [...] Team Providers + +------+ + | Care Driver/Refuse Collector Name | Role | Phone | + +------+ + PCP | Unavailable | + +------+ + Encounter Details +--------+ + + + + | Date | Type | Department | Care Team | Description | +--------+ + + + + | 06/14/ | Document-Sc | Digestive Health | Jeancarlos Marley MD | | | 2015 | anned | [place] [address] [address] | [address] | | | | | [address] | [place], [place] | | | | | Mailcode: OC8D | [address] | | | | | [facility] | [phone] | | | | | and Healing, | | | | | | [address] | | | | | | [place], [place] | | | | | | [address] | | | | | | [phone] | | | +--------+ + + + [...]
--- OUTSIDE RECORDS SUMMARY | ~2019-05-15 | XMS | Encounter Summary ---
Demographics + + + | Address | GENERAL DELIVERY | | | [place] [address] | + + + | Home Phone [...] Team Providers + +------+ + | Care Rotating Equipment Engineer Name | Role | Phone | [...] | | | | | retention | [place] | [address] | | | | | Urinary | STATE | Ave | | | | | Retention | HOSPITAL | [place], [place] | | | | | Procedures | [address] | [address] | | | | | REQUEST TO | [address] | Phone: | | | | | SURGERY | [place] | [phone] | | | | | [employer]ENS[employer] T[employer]ER | [address] | Fax: | | | | | [place] | Phone: | [phone] | | | | | INCISE/DRAIN | [phone] | | | | | | BLADDER | Fax: | | | | | | suprapubic | [phone] | | | | | | cystostomy [...] | | | | | | | [address] | | | | | | | Ave | | | | | | | [place], [place] | | | | | | | [address] | | | | | | | Phone: | | | | | | | [phone] | | | | | | | Fax: | | | | | | | [phone] | +--------+--------+ + + + + Encounter [...] | | | | Mailcode: CH10U | [place], [place] | | | | | [facility] | [address] | | | | | and Healing, | [phone] | | | | | | | | | | | Floor [facility] [place] | | | | | | [address] | | | | | | [phone] | | | +--------+ + + + [...] Armand Ordonez MD - 01/22/2011 12:51 PM [id number], former patient of Dr. Canchola, is an inpat ient at [facility] for at least 3 more years. He [...] | + +--------+ + + + | HI CYSTOURETHROSCOPY | Routin | 01/22/2011 | Urinary retention | Results for this | | | e | | | procedure are in the | | | | | | results section. | + +--------+ + + + documented in this encounter Results HI CYSTOURETHROSCOPY (01/22/2011) + + + | Narrative [...]
--- OUTSIDE RECORDS SUMMARY | ~2019-05-15 | XMS | Encounter Summary ---
Demographics + + + | Address | GENERAL DELIVERY | | | [place] [address] | + + + | Home Phone [...] Providers + +------+ + | Care Hotel Recreational Facilities Manager Name | Role | Phone | [...] | | | URINARY | [place] | [address] | | | | | RETENTION | STATE | Ave | | | | | | HOSPITAL | [place], [place] | | | | | | [address] | [address] | | | | | | [address] | Phone: | | | | | | [place], [place] | [phone] | | | | | | [address] | Fax: | | | | | | Phone: | [phone] | | | | | | [phone] | | | | | | | Fax: | | | | | | | [phone] | | +--------+--------+ + + + + [...] | | | | Mailcode: CH10U | [place], [place] | | | | | [facility] | [address] | | | | | and [place], | [phone] | | | | | | | | | | | Floor [place], [place] | | | | | | [address] | | | | | | [phone] | | | +--------+ + + + [...] hands with soap and water or hand dental office assistant. Clean the tip of the penis with [...] or contact PCP or call us at [phone] or after hours at [phone] for signs or symptoms of UTI. Urinary [...] for life. We will have our clinic nurse reviewer the proper technique. 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
--- OUTSIDE RECORDS SUMMARY | ~2019-05-15 | XMS | Encounter Summary ---
Demographics + + + | Address | GENERAL DELIVERY | | | [place] [address] | + + + | Home Phone [...] Providers + +------+ + | Care Wire Dropper Name | Role | Phone | + [...] | | 2007 | | Center at [facility] [address] | [address] | your call.) | | | | [address] | [place], [place] | | | | | Mailcode: OC8D | [address] | | | | | [facility] | [phone] | | | | | and Healing, | | | | | | [address] | | | | | | [place], [place] | | | | | | [address] | | | | | | [phone] | | | +--------+ + + + [...]
--- OUTSIDE RECORDS SUMMARY | ~2019-05-15 | XMS | Encounter Summary ---
Demographics + + + | Address | GENERAL DELIVERY | | | [place] [address] | + + + | Home Phone [...] Team Providers + +------+ + | Care Anime Artist Name | Role | Phone | [...] | | | Ave Mailcode: CH6D | [place], [place] | | | | | [facility] | [address] | | | | | and Healing, | [phone] | | | | | [facility] | | | | | | Floor [place], [place] | | | | | | [address] | | | | | | [phone] | | | +--------+ + + + [...]
--- OUTSIDE RECORDS SUMMARY | ~2019-05-15 | XMS | Encounter Summary ---
Demographics + + + | Address | GENERAL DELIVERY | | | [place] [address] | + + + | Home Phone [...] Team Providers + +------+ + | Care Telecommunications Analyst Name | Role | Phone | [...] abd u/s | | 2007 | | [place] at [facility] [address]35 | [address] | order faxed/mailed) | | | | [address] | [place], [place] | | | | | Mailcode: OC8Gigi | [address] | | | | | [facility] | [phone] | | | | | and [place], | | | | | | [address] | | | | | | [place], [place] | | | | | | [address] | | | | | | [phone] | | | +--------+ + + + [...]
--- OUTSIDE RECORDS SUMMARY | ~2019-05-15 | XMS | Encounter Summary ---
Demographics + + + | Address | GENERAL DELIVERY | | | [place] [address] | + + + | Home Phone [...] Providers + +------+ + | Care Sap Basis Architect Name | Role | Phone | [...] + + | 06/19/ | Telephone | [facility] | Jeancarlos Marley MD | Pain | | 2014 | | [place] [address] [address] | [address] | | | | | [address] | [place], [place] | | | | | Mailcode: OC8D | [address] | | | | | [facility] | [phone] | | | | | and Healing, | | | | | | [address] | | | | | | [place], [place] | | | | | | [address] | | | | | | [phone] | | | +--------+ + + + [...]
--- OUTSIDE RECORDS SUMMARY | ~2019-05-15 | XMS | Encounter Summary ---
Demographics + + + | Address | GENERAL DELIVERY | | | [place] [address] | + + + | Home Phone [...] Team Providers + +------+ + | Care Bacteriology Research Assistant Name | Role | Phone | + +------+ + PCP | Unavailable | + +------+ + Encounter Details +--------+ + + + + | Date | Type | Department | Care Team | Description | +--------+ + + + + | 12/27/ | Telephone | [facility] | Jeancarlos Marley MD | | | 2007 | | [place] [address] | [address] | | | | | [address] | [place], [place] | | | | | Mailcode: OC8D | [address] | | | | | [facility] | [phone] | | | | | and Healing, | | | | | | [address] | | | | | | [place], [place] | | | | | | [address] | | | | | | [phone] | | | +--------+ + + + [...]
--- OUTSIDE RECORDS SUMMARY | ~2019-05-15 | XMS | Encounter Summary ---
Demographics + + + | Address | GENERAL DELIVERY | | | [place] [address] | + + + | Home Phone [...] Providers + +------+ + | Care Marble Installer Name | Role | Phone | [...] | | | | | | | [address] | | | | | | | Ave | | | | | | | [place], [place] | | | | | | | [address] | | | | | | | Phone: | | | | | | | [phone] | | | | | | | Fax: | | | | | | | [phone] | +--------+--------+ + + + + Encounter [...] | | | | Mailcode: CH10U | [place], [place] | | | | | [facility] | [address] | | | | | and Healing, | [phone] | | | | | | | | | | | Floor [facility] [place] | | | | | | [address] | | | | | | [phone] | | | +--------+ + + + [...] month Facility will likely change care to [facility] due to distance. documented in this encounter Plan of Treatment Not on filedocumented as of this encounter Visit Diagnoses + + | Diagnosis | + + | Urinary retention - Primary Retention of urine, unspecified | + + documented in this encounter"
--- OUTSIDE RECORDS SUMMARY | ~2019-05-15 | XMS | Clinical Summary ---
Demographics + + + | Address | GENERAL DELIVERY | | | [place] [address] | + + + | Home Phone [...] Team Providers + +------+ + | Care Flight Instructor Name | Role | Phone | + +------+ + | Fam Donnelly MD | PCP | | + +------+ + Source Comments [facility] is fully live on both [facility] and [facility] InPatient.[facility] Allergies + + + + + + [...] | | | + +--------+ +--------+-------+---------+--------+ | [employer] | [employer] | xxxxxxxx | 05/22/19 | | | [...] | 1980 | [phone] | [place] [address] | | | linda | | | 3 (Home) | | + +--------+ +--------+ + + | Peng Richardson | Agency | Self | 09/20/ | | GENERAL DELIVERY | | | | | 1980 | [phone] | [place] [address] | | | | | | 3 (Home) | | + +--------+ +--------+ + + Advance Directives + + + + + | Type | Date Recorded | Patient | Explanation | | | | Molding Process Technician | | + + + + + | Advance | | | | | Directives and | | | | | Living Will | | | | + + + + + | Power of | | | | | Appointment Setter | | | | + + + + +
--- OUTSIDE RECORDS SUMMARY | ~2019-05-15 | XMS | Encounter Summary ---
Demographics + + + | Address | GENERAL DELIVERY | | | [place] [address] | + + + | Home Phone [...] Providers + +------+ + | Care Fruit Farmer Name | Role | Phone | [...] abd u/s | | 2007 | | [place] at [facility] 0415 | [address] | order faxed/mailed) | | | | [address] | [place], [place] | | | | | Mailcode: OC8Gigi | [address] | | | | | [facility] | [phone] | | | | | and [place], | | | | | | [address] | | | | | | [place], [place] | | | | | | [address] | | | | | | [phone] | | | +--------+ + + + [...]
--- OUTSIDE RECORDS SUMMARY | ~2019-05-15 | XMS | Encounter Summary ---
Demographics + + + | Address | GENERAL DELIVERY | | | [place] [address] | + + + | Home Phone [...] Team Providers + +------+ + | Care Aquacultural Worker Supervisor Name | Role | Phone | [...] Required | | hepatitis C | [address] | [address] | | | | | without | [address] | Ave | | | | | mention of | [place], | [place], [place] | | | | | hepatic coma | [place] [address] | [address] | | | | | Procedures | Phone: | Phone: | | | | | CONSULT TO | [phone] | [phone] | | | | | HEPATOLOGY | Fax: | Fax: | | | | | | [phone] | [phone] | +--------+ + + + + + Encounter Details +--------+---------+ + + + | Date | Type | Department | Care Team | Description | +--------+---------+ + + + | 01/25/ | Office | Digestive Health | Jeancarlos Rich MD | Chronic hepatitis C | | 2011 | Visit | Center at [facility] [address] | [address] | without mention of | | | | [address] | [place], [place] | hepatic coma | | | | Mailcode: OC8D | [address] | (Primary Dx) | | | | [place] [facility] | [phone] | | | | | and Healing, | | | | | | [address] | | | | | | [place], [place] | | | | | | [address] | | | | | | [phone] | | | +--------+---------+ + + + [...] infected in 2002 1.4)Obese 1.5) committed to [facility] in [place] until 2014 1.6 ) no liver biopsy to date 1.7) vaccinated for HAV/HBV in the past PAST MEDICAL HISTORY 2) HTN 3) Schizophrenia and anxiety:[facility] 4) obesity Current [...] interim he has been committed to the [facility] facility. At this time he has no clinical evidence of cirrhosis. Unfortunat birgit the current HCV treatment regimen still includes interferon, which will exacerbate any u nderlying psychiatric issues. Unless he can be safely watched and protected in the [facility], there will not be a way to use interferon-based therapy. It would be unreasonable to consider a liver biopsy (can be done in [place] thru radiology, ie ultrasound guided) to asses s degree of liver fibrosis, before even contemplating any therapy. Recommend thru Drs. Robin/Mike patients get the followin. CMP, CBC, plts, diff, INR 2. Decide if patient can be treated safely in [facility] with interferon regimen. If possible, would recommend liver biopsy (in [place]) and then will results in hand return to s [facility]. 3) If interferon-based therapy is [...]
--- OUTSIDE RECORDS SUMMARY | ~2019-05-15 | XMS | Encounter Summary ---
Demographics + + + | Address | GENERAL DELIVERY | | | [place] [address] | + + + | Home Phone [...] Team Providers + +------+ + | Care Baked Goods Stock Clerk Name | Role | Phone | [...] Abdominal pain | | 2007 | | [place] [address] [address] | [address] | | | | | [address] | [place], [place] | | | | | Mailcode: OC8D | [address] | | | | | [facility] | [phone] | | | | | and Healing, | | | | | | [address] | | | | | | [place], [place] | | | | | | [address] | | | | | | [phone] | | | +--------+ + + + [...]
--- OUTSIDE RECORDS SUMMARY | ~2019-05-15 | XMS | Encounter Summary ---
Demographics + + + | Address | GENERAL DELIVERY | | | [place] [address] | + + + | Home Phone [...] Team Providers + +------+ + | Care Dental Associate Name | Role | Phone | [...] + + | 06/19/ | Telephone | [facility] | Jeancarlos Marley MD | Pain | | 2014 | | [place] [address] [address] | [address] | | | | | [address] | [place], [place] | | | | | Mailcode: OC8D | [address] | | | | | [facility] | [phone] | | | | | and Healing, | | | | | | [address] | | | | | | [place], [place] | | | | | | [address] | | | | | | [phone] | | | +--------+ + + + [...]
--- OUTSIDE RECORDS SUMMARY | ~2019-05-15 | XMS | Encounter Summary ---
[...] Team Providers + +------+ + | Care Formula Weigher Name | Role | Phone | + +------+ + PCP | Unavailable | + +------+ + Reason for Visit +--------+ + | Reason | Comments | +--------+ + | Pain | | +--------+ + Encounter Details +--------+ + + + + | Date | Type | Department | Care Team | Description | +--------+ + + + + | 06/13/ | Telephone | [facility] | Jeancarlos Marley MD | Pain | | 2014 | | [place] [address] [address] | [address] | | | | | [address] | [place], [place] | | | | | Mailcode: OC8D | [address] | | | | | [facility] | [phone] | | | | | and Healing, | | | | | | [address] | | | | | | [place], [place] | | | | | | [address] | | | | | | [phone] | | | +--------+ + + + [...]
--- OUTSIDE RECORDS SUMMARY | ~2019-05-15 | XMS | Encounter Summary ---
Demographics + + + | Address | GENERAL DELIVERY | | | [place] [address] | + + + | Home Phone [...] Team Providers + +------+ + | Care Floral Department Specialist Name | Role | Phone | [...] Lab Order | | 2014 | | [place] at [facility] [address] | [address] | | | | | [address] | [facility] [place] | | | | | Mailcode: OC8D | [address] | | | | | [facility] | [phone] | | | | | and Healing, | | | | | | [address] | | | | | | [place], [place] | | | | | | [address] | | | | | | [phone] | | | +--------+ + + + [...]
--- OUTSIDE RECORDS SUMMARY | ~2019-05-15 | XMS | Encounter Summary ---
Demographics + + + | Address | GENERAL DELIVERY | | | [place] [address] | + + + | Home Phone [...] Providers + +------+ + | Care Financial Services Representative Name | Role | Phone | [...] Abdominal pain | | 2007 | | [place] [phone] | [address] | (liver pain) | | | | [address] | [place], [place] | | | | | Mailcode: [id number] | [address] | | | | | [facility] | [phone] | | | | | and Healing, | | | | | | Building [address] | | | | | | [place], [place] | | | | | | [address] | | | | | | [phone] | | | +--------+ + + + [...] + + + + + | [facility] DEPARTMENT OF | [address] [facility] | [facility] [place] [address] | | | PATHOLOGY | [address] | | | + + + + + | [facility] DEPARTMENT OF | [address] [facility] | [place] [address] | | | PATHOLOGY | [address] [...] | + + + + + | [facility] | [address] [facility] | [place] [address] | | | PATHOLOGY | [address] | | | + + + + + | [facility] OF | [address] [facility] | [place] [address] | | | PATHOLOGY | [address] [...] Performed At | + + + | [id number] Estimated GFR > 60 mL/min/1.73 sq m if non- | [facility] | | [place] [id number] Estimated GFR > 60 mL/min/1.73 sq m [...] | + + + + + | [facility] | [address] [facility] | [place] [address] | | | PATHOLOGY | [address] | | | + + + + + | [facility] | [address] | [place] [address] | | | PATHOLOGY | [address] [...] spleen | | | | | | [id number] cm in | | | | | [...]
--- OUTSIDE RECORDS SUMMARY | ~2019-05-15 | XMS | Encounter Summary ---
Demographics + + + | Address | GENERAL DELIVERY | | | [place] [address] | + + + | Home Phone [...] Providers + +------+ + | Care Transfer Clerk Name | Role | Phone | + +------+ + | Etienne Barnes PA-C | PCP | | + +------+ + Encounter Details +--------+ + + + + | Date | Type | Department | Care Team | Description | +--------+ + + + + | 09/14/ | Document-Sc | UNKNOWN DEPARTMENT | Unknown . | | | 2014 | anned | [address] [facility] | | | | | | [address] | | | | | | [place], [place] | | | | | | [address] | | | +--------+ + + + [...]
--- OUTSIDE RECORDS SUMMARY | ~2019-05-15 | XMS | Encounter Summary ---
Demographics + + + | Address | GENERAL DELIVERY | | | [place] [address] | + + + | Home Phone [...] Providers + +------+ + | Care Security Messenger Name | Role | Phone | + [...] | | | | Mailcode: [id number] | [place], [place] | | | | | [facility] | [address] | | | | | and Healing, | [phone] | | | | | [facility] | | | | | | Floor [place], [place] | | | | | | [address] | | | | | | [phone] | | | +--------+ + + + [...]
--- OUTSIDE RECORDS SUMMARY | ~2019-05-15 | XMS | Encounter Summary ---
Demographics + + + | Address | GENERAL DELIVERY | | | [place] [address] | + + + | Home Phone [...] Team Providers + +------+ + | Care Lock Tender Chief Operator Name | Role | Phone | + +------+ + PCP | Unavailable | + +------+ + Encounter Details +--------+ + + + + | Date | Type | Department | Care Team | Description | +--------+ + + + + | 12/27/ | Telephone | [facility] | Jeancarlos Marley MD | | | 2008 | | [place] [phone] | [address] | | | | | [address] | [place], [place] | | | | | Mailcode: OC8D | [address] | | | | | [facility] | [phone] | | | | | and Healing, | | | | | | [address] | | | | | | [place], [place] | | | | | | [address] | | | | | | [phone] | | | +--------+ + + + [...]
--- OUTSIDE RECORDS SUMMARY | ~2019-05-15 | XMS | Encounter Summary ---
Demographics + + + | Address | GENERAL DELIVERY | | | [place] [address] | + + + | Home Phone [...] Team Providers + +------+ + | Care Farm Mechanic Apprentice Name | Role | Phone | [...] | | | | Mailcode: [id number] | [place], [place] | | | | | [facility] | [address] | | | | | and Healing, | [phone] | | | | | Building | | | | | | Floor [place], [place] | | | | | | [address] | | | | | | [phone] | | | +--------+ + + + [...]
--- OUTSIDE RECORDS SUMMARY | ~2019-05-15 | XMS | Encounter Summary ---
Demographics + + + | Address | GENERAL DELIVERY | | | [place] [address] | + + + | Home Phone [...] Providers + +------+ + | Care Director Industrial Museum Name | Role | Phone | + +------+ + PCP | Unavailable | + +------+ + Reason for Visit +--------+ + | Reason | Comments | +--------+ + | Pain | | +--------+ + Encounter Details +--------+ + + + + | Date | Type | Department | Care Team | Description | +--------+ + + + + | 06/13/ | Telephone | [facility] | Jeancarlos Marley MD | Pain | | 2014 | | [place] [phone] | [address] | | | | | [address] | [place], [place] | | | | | Mailcode: OC8D | [address] | | | | | [facility] | [phone] | | | | | and Healing, | | | | | | [address] | | | | | | [place], [place] | | | | | | [address] | | | | | | [phone] | | | +--------+ + + + [...]
== END 2019-05-15 16:28 | disposition home or self-care (01) ==
LOC: ED 12:36
DX: F15.10 Other stimulant abuse, uncomplicated (principal); I10 Essential (primary) hypertension; F17.200 Nicotine dependence, unspecified, uncomplicated; Z88.1 Allergy status to other antibiotic agents; Z88.2 Allergy status to sulfonamides; Z91.048 Other nonmedicinal substance allergy status
CPT/HCPCS: 80053; 81001; 85025; 96374; 99285-25; J2060; J7030

== ENCOUNTER 2019-05-18 19:15 | Emergency (ER) | payer OTHER ==
[~2019-05-18] VITALS: Ht 177.8 cm; Wt 104.3 kg
--- OUTSIDE RECORDS SUMMARY | ~2019-05-18 | XMS | Encounter Summary ---
Demographics + + + | Address | GENERAL DELIVERY | | | [place] [address] | + + + | Home Phone | | + + + | Preferred Language | Unknown | + + + | Marital Status | Single | + + + | Congregational Affiliation | NON | + + + | Race | White | + + + | Ethnic Group | Not or | + + + Author + + + | Author | [facility] | + + + | Organization | [facility] | + + + | Address | Unknown | + + + | Phone | Unavailable | + + + Support + + +---------+ + | Name | Relationship | Address | Phone | + + +---------+ + | Per None, PT | ECON | Unknown | Unavailable | + + +---------+ + Care Team Providers + +------+ + | Care Instrument Technician Name | Role | Phone | + +------+ + | Lakesha River | PCP | | + +------+ + Reason for Visit + + + | Reason | Comments | + + + | Follow-up visit | | + + + Consultation (Routine) +--------+ + + + + + | Status | Reason | Specialty | Diagnoses / | Referred By | Referred To | | | | | Procedures | Contact | Contact | +--------+ + + + + + | Closed | Specialty | Hepatology | Diagnoses | [place], | [place], | | | Services | | Chronic | Alonzo Dav[place] MD | MD Jeancarlos | | | Required | | hepatitis C | [address] | [address] | | | | | without | [address] | Ave | | | | | mention of | [place], | [place], [place] | | | | | hepatic coma | [place] [address] | [address] | | | | | Procedures | Phone: | Phone: | | | | | CONSULT TO | [phone] | [phone] | | | | | HEPATOLOGY | Fax: | Fax: | | | | | | [phone] | [phone] | +--------+ + + + + + Encounter Details +--------+---------+ + + + | Date | Type | Department | Care Team | Description | +--------+---------+ + + + | 02/27/ | Office | [facility] | Jeancarlos Rich MD | Chronic Hepatitis C | | 2007 | Visit | Center at [facility] [address] | [address] | without Mention of | | | | [address] | [place], [place] | Hepatic Coma | | | | Mailcode: OC8D | [address] | (Primary Dx) | | | | [facility] | [phone] | | | | | and Healing, | | | | | | [address] | | | | | | [place], [place] | | | | | | [address] | | | | | | [phone] | | | +--------+---------+ + + + Social History + + [...] + + documented as of this encounter Last Filed Vital Signs + + + + + | Vital Sign | Reading | Time Taken | Comments | + + + + + | Blood Pressure | 124/76 | 02/28/2008 8:53 AM | | | | | PDT | | + + + + + | Pulse | 100 | 02/28/2008 8:53 AM | | | | | PDT | | + + + + + | Temperature | 36.3 C (97.4 F) | 02/28/2008 8:53 AM | | | | | PDT | | + + + + + | Respiratory Rate | 16 | 02/28/2008 8:53 AM | | | | | PDT | | + + + + + | Oxygen Saturation | - | - | | + + + + + | Inhaled Oxygen | - | - | | | Concentration | | | | + + + + + | Weight | 152.4 kg (335 lb | 02/28/2008 8:53 AM | | | | 14.4 oz) | PDT | | + + + + + | Height | - | - | | + + + + + | Body Mass Index | 49.6 | 06/16/2007 8:01 AM | | | | | PST | | + + + + + documented in this encounter Progress Notes Jeancarlos Rich - 02/28/2008 9:18 AM PDTFormatting of this note might be different from the or iginal. PROGRESS NOTE:HEPATOLOGY FOLLOW UP VISIT Diagnoses: 1) Hep C thought to be 2/2 ivdu with first time use of iv drugs in 2002: 1.1) No evidence of cirrhosis. Normal ultrasound 12/23 and normal platelet count 1.2) most recent HCV count 2.08 IU/Ml from 04/23. Genotype 1 1.3) Likely infected in 2002 1.4) will consider Interferon treatment once has lost significant amount of wieght (morbidl y obese) 2) HTN 3) Schizophrenia and anxiety: controlled with ability and buspar 4) Pt has already been vaccinated for Hep A and Hep B Current outpatient prescriptions Medication Sig busPIRone 5 mg Oral Tablet take 1 tablet (5 mg) by oral route 2 times per day chlorproMAZINE 100 mg Oral Tablet take 1 tablet (100 mg) by oral route once daily lisinopril 20 mg Oral Tablet take 1 tablet (20 mg) by oral route once daily paroxetine 20 mg Oral Tablet take 1 tablet (20 mg) by oral route once daily Allergy: No Known Allergies. Subjective: Mr. Richardson is seen in Hepatology clinic for follow up of Chronic Hepatitis C. He states that his current symptoms are fatigue and abdominal pain in the RUQ. He denies fluid accumulation in feet/ankles, fluid accumulation in abdomen, blood in bowel movements or black tarry bm's and memory or concentration changes. Review of Systems: All other systems negative. Social History: Currently smoking: no Current alcohol use: no Currently employed: yes Good social support: yes Objective: BP 124/76 | Pulse 100 | Temp (Src) 36.3 C (97.4 F) (Oral) | Resp 16 | Wt 152.363 kg (33 5 lb 14.4 oz) General: Alert, NAD. HEENT: Normal, sclerae anicteric. Respiration: Normal CTAB, and good air exchange. Cardiac: Regular rate and rhythm. Abdomen: Soft, non-distended, normal bowel sounds, no hepatosplenomegaly, no fluid wave, no other masses noted. Neuro: Normal, alert with no asterixis. Pysch: Normal speech pattern and thought process linear. Extremities: Normal, no edema, or skin discolorations. Skin: Warm and dry without rashes, lesions or spider hemangomota. Laboratory Data: SODIUM (LAB) (mmol/L) Date Value 12/24/07 139 06/16/07 136 CREATININE,PLASMA (mg/dL) Date Value 12/24/07 0.81 06/16/07 0.9 AST(SGOT) (U/L) Date Value 12/24/07 47* 06/16/07 47* ALT (SGPT) (U/L) Date Value 12/24/07 64* 06/16/07 79* BILIRUBIN TOTAL (mg/dL) Date Value 12/24/07 0.6 06/16/07 0.9 ALBUMIN (LAB) (g/dL) Date Value 12/24/07 3.6 06/16/07 3.6 WHITE CELL COUNT (K/cu mm) Date Value 12/24/07 7.5 06/16/07 8.4 WHITE CELL COUNT - [facility] (K/cu mm) Date Value 06/16/07 See cmnt HEMOGLOBIN (g/dL) Date Value 12/24/07 15.3 06/16/07 16.3 HEMOGLOBIN, BLOOD - [facility] (g/dL) Date Value 06/16/07 See cmnt MCV (fL) Date Value 12/24/07 90.1 06/16/07 83.8 MCV - [facility] (fL) Date Value 06/16/07 See cmnt PLATELET COUNT (K/cu mm) Date Value 12/24/07 224 06/16/07 211 PLATELET COUNT, BLOOD - [facility] (K/cu mm) Date Value 06/16/07 See cmnt Assessment/Plan: Has lost a significant amount of weight. I would like for him to lose some more to get clos er to ideal body weight before we consider HCV treatment (the newer more efficacious regimen s will be available in 2010). Plan 1) weight loss 2) Today: CMP, CBC, plts, diff, INR 3) RTC in 1 year. Counseling Time: The overall face to face time of office visit was >25 minutes over half, of which was spent in education and counseling the patient. JEANCARLOS RICH MD documented in this encounter Plan of Treatment Not on filedocumented as of this encounter Results [facility] - INR (PROTHROMBINTIME) (02/28/2008 9:24 AM PDT) + + + + + + | Component | Value | Ref Range | Performed | Pathologist | | | | | At | Signature | + + + + + + | INR-[facility] | 1.10Comment: | 0.98 - 1.20 INR | [facility] | | | | PT INR Therapeutic | | DEPARTMENT | | | | ranges for full | | OF | | | | anticoagulation: | | PATHOLOGY | | | | INR for | | | | | | Venous Thromboembolism | | | | | | | | | | | | (2.0-3.0) INR | | | | | | INR for most | | | | | | patients with mech. | | | | | | valves (2.5-3.5) | | | | | | INR | | | | + + + + + + + + | Specimen | + + | Blood | + + + + + + + | Performing | Address | City/State/Zipcode | Phone Number | | Organization | | | | + + + + + | [facility] | [address] | [place] [address] | | | PATHOLOGY | [address] | | | + + + + + | [facility] | [address] [place] [address] | [place] [address] | | | PATHOLOGY | [address] | | | + + + + + [facility] - CBC AUTODIFF (02/28/2008 9:24 AM PDT) + +-------+ + + + | Component | Value | Ref Range | Performed | Pathologist | | | | | At | Signature | + +-------+ + + + | WHITE CELL | 7.1 | 3.4 - 10.0 K/cu | [facility] | | | COUNT - [facility] | | mm | DEPARTMENT | | | | | | OF | | | | | | PATHOLOGY | | + +-------+ + + + | RED CELL | 5.30 | 4.30 - 5.90 | [facility] | | | COUNT - [facility] | | M/cu mm | DEPARTMENT | | | | | | OF | | | | | | PATHOLOGY | | + +-------+ + + + | HEMOGLOBIN, | 16.0 | 13.5 - 17.5 | [facility] | | | BLOOD - | | g/dL | DEPARTMENT | | | [facility] | | | OF | | | | | | PATHOLOGY | | + +-------+ + + + | HEMATOCRIT | 48.0 | 40.5 - 52.5 % | [facility] | | | - [facility] | | | DEPARTMENT | | | | | | OF | | | | | | PATHOLOGY | | + +-------+ + + + | MCV - [facility] | 90.5 | 85.0 - 95.0 fL | [facility] | | | | | | DEPARTMENT | | | | | | OF | | | | | | PATHOLOGY | | + +-------+ + + + | MCH - [facility] | 30.2 | 28.5 - 32.3 pg | [facility] | | | | | | DEPARTMENT | | | | | | OF | | | | | | PATHOLOGY | | + +-------+ + + + | MCHC - [facility] | 33.3 | 33.2 - 34.2 | [facility] | | | | | g/dL | DEPARTMENT | | | | | | OF | | | | | | PATHOLOGY | | + +-------+ + + + | RDW-[facility] | 13.4 | 11.5 - 15.0 % | [facility] | | | | | | DEPARTMENT | | | | | | OF | | | | | | PATHOLOGY | | + +-------+ + + + | PLATELET | 241 | 150 - 420 K/cu | [facility] | | | COUNT, | | mm | DEPARTMENT | | | BLOOD - [facility] | | | OF | | | | | | PATHOLOGY | | + +-------+ + + + | MPV-[facility] | 10.4 | 7.4 - 10.4 fL | [facility] | | | | | | DEPARTMENT | | | | | | OF | | | | | | PATHOLOGY | | + +-------+ + + + | NEUTROPHIL | 58 | 48 - 65 % | [facility] | | | (%) - [facility] | | | DEPARTMENT | | | | | | OF | | | | | | PATHOLOGY | | + +-------+ + + + | LYMPHOCYTE | 36 | 26 - 41 % | [facility] | | | (%) - [facility] | | | DEPARTMENT | | | | | | OF | | | | | | PATHOLOGY | | + +-------+ + + + | MID-RANGE | 6 (L) | 7 - 15 % | [facility] | | | (%) - [facility] | | | DEPARTMENT | | | | | | OF | | | | | | PATHOLOGY | | + +-------+ + + + | NEUTROPHIL | 4.1 | 2.2 - 5.2 K/cu | [facility] | | | ABSOLUTE - | | mm | DEPARTMENT | | | [facility] | | | OF | | | | | | PATHOLOGY | | + +-------+ + + + | LYMPHOCYTE | 2.6 | 1.6 - 2.6 K/cu | [facility] | | | ABSOLUTE - | | mm | DEPARTMENT | | | [facility] | | | OF | | | | | | PATHOLOGY | | + +-------+ + + + | MID-RANGE | 0.4 | <2.1 K/cu mm | [facility] | | | ABSOLUTE - | | | DEPARTMENT | | | [facility] | | | OF | | | | | | PATHOLOGY | | + +-------+ + + + + + | Specimen | + + | Blood | + + + + + + + | Performing | Address | City/State/Zipcode | Phone Number | | Organization | | | | + + + + + | [facility] | [address] | [place] [address] | | | PATHOLOGY | [address] | | | + + + + + | [facility] | [address] [place] [address] | [place] [address] | | | PATHOLOGY | [address] | | | + + + + + [facility] - COMPLETE METABOLIC SET (02/28/2008 9:24 AM PDT) + +--------+ + + + | Component | Value | Ref Range | Performed | Pathologist | | | | | At | Signature | + +--------+ + + + | GLUCOSE-[facility] | 87 | 60 - 99 mg/dL | [facility] | | | | | | DEPARTMENT | | | | | | OF | | | | | | PATHOLOGY | | + +--------+ + + + | UREA | 9 | 6 - 20 mg/dL | [facility] | | | NITROGEN-CH | | | DEPARTMENT | | | H | | | OF | | | | | | PATHOLOGY | | + +--------+ + + + | CREATININE- | 1.0 | 0.7 - 1.3 mg/dL | [facility] | | | [facility]H | | | DEPARTMENT | | | | | | OF | | | | | | PATHOLOGY | | + +--------+ + + + | PROTEIN, | 6.9 | 6.3 - 8.0 g/dL | [facility] | | | TOTAL-CHH | | | DEPARTMENT | | | | | | OF | | | | | | PATHOLOGY | | + +--------+ + + + | ALBUMIN-[facility] | 3.6 | 3.4 - 4.4 g/dL | [facility] | | | | | | DEPARTMENT | | | | | | OF | | | | | | PATHOLOGY | | + +--------+ + + + | CALCIUM-[facility] | 9.4 | 8.8 - 10.9 | [facility] | | | | | mg/dL | DEPARTMENT | | | | | | OF | | | | | | PATHOLOGY | | + +--------+ + + + | BILIRUBIN, | 0.7 | 0.3 - 1.2 mg/dL | [facility] | | | TOTAL-[facility] | | | DEPARTMENT | | | | | | OF | | | | | | PATHOLOGY | | + +--------+ + + + | ALK | 90 | 53 - 128 U/L | [facility] | | | PHOS-CHH | | | DEPARTMENT | | | | | | OF | | | | | | PATHOLOGY | | + +--------+ + + + | AST-[facility] | 29 | 15 - 41 U/L | [facility] | | | | | | DEPARTMENT | | | | | | OF | | | | | | PATHOLOGY | | + +--------+ + + + | SODIUM-[facility] | 134 | 133 - 141 | [facility] | | | | | mmol/L | DEPARTMENT | | | | | | OF | | | | | | PATHOLOGY | | + +--------+ + + + | POTASSIUM-C | 4.6 | 3.6 - 5.0 | [facility] | | | HH | | mmol/L | DEPARTMENT | | | | | | OF | | | | | | PATHOLOGY | | + +--------+ + + + | CHLORIDE-CH | 100 | 97 - 104 mmol/L | [facility] | | | H | | | DEPARTMENT | | | | | | OF | | | | | | PATHOLOGY | | + +--------+ + + + | CO2 | 30 | 24 - 30 mmol/L | [facility] | | | TOTAL-CH[facility] | | | DEPARTMENT | | | | | | OF | | | | | | PATHOLOGY | | + +--------+ + + + | ALT-[facility] | 50 (H) | 13 - 48 U/L | [facility] | | | | | | DEPARTMENT | | | | | | OF | | | | | | PATHOLOGY | | + +--------+ + + + + + | Specimen | + + | Blood | + + + + + + + | Performing | Address | City/State/Zipcode | Phone Number | | Organization | | | | + + + + + | [facility] DEPARTMENT OF | [address] | [place] [address] | | | PATHOLOGY | [address] | | | + + + + + | [facility] | [address] | [place] [address] | | | PATHOLOGY | [address] | | | + + + + + documented in this encounter Visit Diagnoses + + | Diagnosis | + + | Chronic hepatitis C without mention of hepatic coma - Primary | + + documented in this encounter"
--- OUTSIDE RECORDS SUMMARY | ~2019-05-18 | XMS | Clinical Summary ---
Demographics + + + | Address | [address] | | | [place] [address] | + + + | Home Phone | | + + + | Preferred Language | Unknown | + + + | Marital Status | Single | + + + | Mormonism Affiliation | NON | + + + | Race | White | + + + | Ethnic Group | Not or | + + + Author + + + | Author | [facility] | + + + | Organization | [facility] | + + + | Address | Unknown | + + + | Phone | Unavailable | + + + Support + + +---------+ + | Name | Relationship | Address | Phone | + + +---------+ + | Per None, PT | ECON | Unknown | Unavailable | + + +---------+ + Care Team Providers + +------+ + | Care Upset Operator Name | Role | Phone | + +------+ + | Fam Donnelly MD | PCP | | + +------+ + Source Comments [facility] is fully live on both [facility] and [facility] Allergies + + + + + + | Active Allergy | Reactions | Severity | Noted | Comments | | | | | Date | | + + + + + + | Doxycycline | Hives | | 02/23/20 | | | | | | 17 | | + + + + + + Medications + + + +---------+------+------+-------+ | Medication | Sig | Dispensed | Refills | Star | End | Statu | | | | | | t | Date | s | | | | | | Date | | | + + + +---------+------+------+-------+ | chlorproMAZINE 100 | take 1 tablet (100 | 0 | 0 | 08/0 | | Activ | | mg Oral Tablet | mg) by oral route | | | 4/20 | | e | | | once daily | | | 08 | | | + + + +---------+------+------+-------+ | busPIRone 5 mg | take 1 tablet (5 mg) | 0 | 0 | 08/0 | | Activ | | Oral Tablet | by oral route 2 | | | 4/20 | | e | | | times per day | | | 08 | | | + + + +---------+------+------+-------+ | paroxetine 20 mg | take 1 tablet (20 | 0 | 0 | 08/0 | | Activ | | Oral Tablet | mg) by oral route | | | 4/20 | | e | | | once daily | | | 08 | | | + + + +---------+------+------+-------+ | lisinopril 20 mg | take 1 tablet (20 | 0 | 0 | 08/0 | | Activ | | Oral Tablet | mg) by oral route | | | 4/20 | | e | | | once daily | | | 08 | | | + + + +---------+------+------+-------+ | oxybutynin | Take 1 Tab by mouth | 14 Tab | 2 | 10/2 | | Activ | | (DITROPAN) 5 mg Oral | two times daily. | | | 1/20 | | e | | Tablet | | | | 10 | | | + + + +---------+------+------+-------+ | LORAZEPAM (ATIVAN | Take by mouth. | | 0 | | | Activ | | ORAL) | | | | | | e | + + + +---------+------+------+-------+ | MIRTAZAPINE | Take by mouth. | | 0 | | | Activ | | (REMERON ORAL) | | | | | | e | + + + +---------+------+------+-------+ | OMEPRAZOLE | Take by mouth. | | 0 | | | Activ | | (PRILOSEC ORAL) | | | | | | e | + + + +---------+------+------+-------+ | cephALEXin 500 mg | Take 500 mg by mouth | | 0 | | | Activ | | Oral Capsule | once daily. | | | | | e | + + + +---------+------+------+-------+ | Cranberry Extract | Take by mouth two | | 0 | | | Activ | | (CRANBERRY) 450 mg | times daily. | | | | | e | | Oral Tablet | | | | | | | + + + +---------+------+------+-------+ | DIVALPROEX SODIUM | Take 1,000 mg by | | 0 | | | Activ | | (DIVALPROEX ORAL) | mouth once daily at | | | | | e | | | bedtime. | | | | | | + + + +---------+------+------+-------+ | lidocaine 20 mg/mL | by Infiltration | | 0 | | | Activ | | (2 %) Injection | route as needed. | | | | | e | | Solution | | | | | | | + + + +---------+------+------+-------+ | LIOTHYRONINE | Take 10 mg by mouth | | 0 | | | Activ | | SODIUM (LIOTHYRONINE | once daily. | | | | | e | | ORAL) | | | | | | | + + + +---------+------+------+-------+ | lithium carbonate | Take 300 mg by mouth | | 0 | | | Activ | | 300 mg Oral Capsule | once daily at | | | | | e | | | bedtime. | | | | | | + + + +---------+------+------+-------+ | olanzapine 5 mg | Take 5 mg by mouth | | 0 | | | Activ | | Oral Tablet | once daily at | | | | | e | | | bedtime. | | | | | | + + + +---------+------+------+-------+ | omeprazole 20 mg | Take 20 mg by mouth | | 0 | | | Activ | | Oral Capsule, | two times daily. | | | | | e | | Delayed | | | | | | | | Release(E.C.) | | | | | | | + + + +---------+------+------+-------+ | prazosin 1 mg Oral | Take 1 mg by mouth | | 0 | | | Activ | | Capsule | once daily. | | | | | e | + + + +---------+------+------+-------+ | Simethicone 80 mg | Take by mouth three | | 0 | | | Activ | | Oral Tablet | times daily. | | | | | e | + + + +---------+------+------+-------+ | Cholecalciferol, | Take by mouth once | | 0 | | | Activ | | Vitamin D3, (VITAMIN | daily. | | | | | e | | D-3) 2,000 unit | | | | | | | | Oral Capsule | | | | | | | + + + +---------+------+------+-------+ | zolpidem 10 mg | Take 10 mg by mouth | | 0 | | | Activ | | Oral Tablet | once daily at | | | | | e | | | bedtime as needed. | | | | | | + + + +---------+------+------+-------+ | acetaminophen 650 | Take 650 mg by mouth | | 0 | | | Activ | | mg Oral Tablet | every eight hours | | | | | e | | | as needed. | | | | | | + + + +---------+------+------+-------+ | Alum-Mag | Take by mouth every | | 0 | | | Activ | | Hydroxide-Simeth | four hours as | | | | | e | | 400-400-30 mg/5 mL | needed. | | | | | | | Oral Suspension | | | | | | | + + + +---------+------+------+-------+ | benztropine 2 mg | Take 2 mg by mouth | | 0 | | | Activ | | Oral Tablet | every six hours as | | | | | e | | | needed. | | | | | | + + + +---------+------+------+-------+ | Calcium Carbonate | Take 500 mg by mouth | | 0 | | | Activ | | 500 mg Oral Capsule | every six hours as | | | | | e | | | needed. | | | | | | + + + +---------+------+------+-------+ | Haloperidol | Inject into the | | 0 | | | Activ | | Lactate 5 mg/mL | muscle (IM) every | | | | | e | | Intramuscular | six hours as needed. | | | | | | | Syringe | | | | | | | + + + +---------+------+------+-------+ | oxyCODONE | Take 2 Dose(s) by | | 0 | | | Activ | | (immediate release) | mouth every four | | | | | e | | 5 mg Tab 5 mg, | hours as needed. | | | | | | | acetaminophen 325 mg | | | | | | | | Tab 325 mg | | | | | | | + + + +---------+------+------+-------+ | olanzapine 10 mg | Inject 10 mg into | | 0 | | | Activ | | Intramuscular Recon | the muscle (IM) as | | | | | e | | Soln | needed. | | | | | | + + + +---------+------+------+-------+ | promethazine 25 mg | Take 25 mg by mouth | | 0 | | | Activ | | Oral Tablet | as needed. | | | | | e | + + + +---------+------+------+-------+ | Psyllium Oral | Take by mouth as | | 0 | | | Activ | | Powder | needed. | | | | | e | + + + +---------+------+------+-------+ | | by Mucous Membrane | | 0 | | | Activ | | LYTES/CARBOXYMETHYLC | route every two | | | | | e | | ELLULOSE (SALIVA | hours as needed. | | | | | | | SUBSTITUTE MM) | | | | | | | + + + +---------+------+------+-------+ | traMADol 25 mg | Take by mouth every | | 0 | | | Activ | | Oral Tablet | six hours as | | | | | e | | | needed. | | | | | | + + + +---------+------+------+-------+ | | Take 1 Tab by mouth | | 0 | | | Activ | | HYDROcodone-acetamin | every four hours as | | | | | e | | ophen 5-500 mg Oral | needed. Not to | | | | | | | Tablet | exceed 6 tablets per | | | | | | | | any 24 hour period. | | | | | | | | (Not to exceed 3250 | | | | | | | | mg of acetaminophen | | | | | | | | from all products | | | | | | | | per 24 hour period.) | | | | | | | | | | | | | | + + + +---------+------+------+-------+ | | Take 1 Tab by mouth | 28 Tab | 0 | 10/1 | | Activ | | trimethoprim-sulfame | two times daily. | | | 07/07 | | e | | thoxazole 160-800 mg | | | | 11 | | | | Oral Tablet | | | | | | | + + + +---------+------+------+-------+ | oxybutynin 5 mg | Take 1 tablet by | 30 | 0 | 10/0 | | Activ | | oral tablet | mouth three times | tablet | | 02/04 | | e | | | daily as needed | | | 17 | | | | | (bladder pain). | | | | | | + + + +---------+------+------+-------+ Active Problems + + + | Problem | Noted Date | + + + | Retention of urine | 03/07/2010 | + + + + + | Overview: ICD10 | + + + + + | Voiding dysfunction | 03/07/2010 | + + + | RUQ abdominal pain | 12/21/2007 | + + + | Chronic hepatitis C virus infection | 12/21/2007 | + + + + + | Overview: ICD10 | + + Social History + + + +--------+------+ | Tobacco Use | Types | Packs/Day | Years | Date | | | | | Used | | + + + +--------+------+ | Former Smoker | Cigarettes | 1.5 | 5 | | + + + +--------+------+ + +---+---+---+ | Smokeless Tobacco: | | | | | Never Used | | | | + +---+---+---+ + + | Comments: quit 1.5 yrs [...] recent travel history available. | + + Last Filed Vital Signs + + + + + | Vital Sign | Reading | Time Taken | Comments | + + + + + | Blood Pressure | 140/102 | 02/23/2017 12:56 AM | | | | | PDT | | + + + + + | Pulse | 107 | 02/22/2017 8:37 PM | | | | | PDT | | + + + + + | Temperature | 36.7 C (98.1 F) | 02/22/2017 10:49 PM | | | | | PDT | | + + + + + | Respiratory Rate | 20 | 02/22/2017 10:49 PM | | | | | PDT | | + + + + + | Oxygen Saturation | 96% | 02/23/2017 12:56 AM | | | | | PDT | | + + + + + | Inhaled Oxygen | - | - | | | Concentration | | | | + + + + + | Weight | 104.3 kg (230 lb) | 02/22/2017 8:38 PM | | | | | PDT | | + + + + + | Height | 175.3 cm (5' 9") | 02/22/2017 8:38 PM | | | | | PDT | | + + + + + | Body Mass Index | 33.97 | 02/22/2017 8:38 PM | | | | | PDT | | + + + + + Plan of Treatment + + + + + | Health Maintenance | Due Date | Last Done | Comments | + + + + + | Pneumococcal | | | | | vaccination (1 of 1 | 6 | | | | - PPSV23) | | | | + + + + + | Influenza (Flu) | | | | | vaccination (#1) | 9 | | | + + + + + Results Not on filefrom Last 3 Months Insurance + +--------+ +--------+-------+---------+--------+ | Payer | Benefi | Subscriber | Effect | Phone | Address | Type | | | t Plan | ID | herbert | | | | | | / | | Dates | | | | | | Group | | | | | | + +--------+ +--------+-------+---------+--------+ | [employer] [place] | AGENCY | xxxxxxxxx | 05/18/19 | | | Agency | | | STATE | | 11-Pre | | | | | | OF | | sent | | | | | | [place] | | | | | | + +--------+ +--------+-------+---------+--------+ | BENEFITS ANALYST MEDICAID | BENEFITS ANALYST | xxxxxxxx | 05/22/19 | | | Medica | | | [place] | | 15-Pre | | | id | | | [place] | | sent | | | | + +--------+ +--------+-------+---------+--------+ + +--------+ +--------+ + + | Guarantor Name | Accoun | Relation to | Date | Phone | Billing Address | | | t Type | Patient | of | | | | | | | | | | + +--------+ +--------+ + + | Peng Richardson | Person | Self [birth year] | GENERAL DELIVERY | | | al/Fam | | 1980 | [phone] | [place] [address] | | | linda | | | 3 (Home) | | + +--------+ +--------+ + + | Peng Richardson | Agency | Self | [birth year] | | GENERAL DELIVERY | | | | | 1980 | [phone] | [place] [address] | | | | | | 3 (Home) | | + +--------+ +--------+ + + Advance Directives + + + + + | Type | Date Recorded | Patient | Explanation | | | | Offset Machine Operator | | + + + + + | Advance | | | | | Directives and | | | | | Living Will | | | | + + + + + | Power of | | | | | Food Broker | | | | + + + + +
--- OUTSIDE RECORDS SUMMARY | ~2019-05-18 | XMS | Encounter Summary ---
Demographics + + + | Address | [address] | | | [place] [address] | + + + | Home Phone | | + + + | Preferred Language | Unknown | + + + | Marital Status | Single | + + + | Synagogue Affiliation | NON | + + + | Race | White | + + + | Ethnic Group | Not or | + + + Author + + + | Author | [facility] | + + + | Organization | [facility] | + + + | Address | Unknown | + + + | Phone | Unavailable | + + + Support + + +---------+ + | Name | Relationship | Address | Phone | + + +---------+ + | Per None, PT | ECON | Unknown | Unavailable | + + +---------+ + Care Team Providers + +------+ + | Care Medical Language Specialist Name | Role | Phone | + +------+ + PCP | Unavailable | + +------+ + Reason for Visit + + + | Reason | Comments | + + + | Abdominal pain | liver pain | + + + Encounter Details +--------+ + + + + | Date | Type | Department | Care Team | Description | +--------+ + + + + | 12/19/ | Telephone | [facility] | Jeancarlos Marley MD | Abdominal pain | | 2007 | | [place] [phone] | [address] | (liver pain) | | | | [address] | [place], [place] | | | | | Mailcode: [id number] | [id number] | | | | | [facility] | [phone] | | | | | [facility] Healing, | | | | | | [address] | | | | | | [place], [place] | | | | | | [address] | | | | | | [phone] | | | +--------+ + + + [...] + + | US ABDOMEN COMPLETE | Priori | 12/24/2007 | RUQ Abdominal Pain | Results for this | | | ty | 7:23 AM | Chronic Hepatitis | procedure are in the | | | | PDT | C without Mention of | results section. | | | | | Hepatic Coma | | + +--------+ + + + documented in this encounter Results INR (12/24/2007 7:24 AM PDT) + + + + + + | Component | Value | Ref Range | Performed | Pathologist | | | | | At | Signature | + + + + + + | INR | 1.02Comment: | 0.90 - 1.20 INR | [facility] [...] | + + + + + | [facility] | [address] | [place] [address] | | | PATHOLOGY | [address] | | | + + + + + | [facility] | [address] | [place] [address] | | | PATHOLOGY | [address] | | | + + + + + CBC, WITH DIFFERENTIAL (12/24/2007 7:24 AM PDT) + + + + + + | Component | Value | Ref Range | Performed | Pathologist | | | | | At | Signature | + + + + + + | WHITE CELL | 7.5 | 4.4 - 11.0 K/cu | [facility] | | | COUNT | | mm | DEPARTMENT | | | | | | OF | | | | | | PATHOLOGY | | + + + + + + | RED CELL | 5.10 | 4.50 - 5.90 | [facility] | | | COUNT | | M/cu mm | DEPARTMENT | | | | | | OF | | | | | | PATHOLOGY | | + + + + + + | HEMOGLOBIN | 15.3 | 13.5 - 17.5 | [facility] | | | | | g/dL | DEPARTMENT | | | | | | OF | | | | | | PATHOLOGY | | + + + + + + | HEMATOCRIT | 45.9 | 41.0 - 53.0 % | [facility] | | | | | | DEPARTMENT | | | | | | OF | | | | | | PATHOLOGY | | + + + + + + | MCV | 90.1 | 80.0 - 96.0 fL | [facility] [...] + + + + | RDW | 13.4 | 11.5 - 15.0 % | [facility] | | | | | | DEPARTMENT | | | | | | OF | | | | | | PATHOLOGY | | + + + + + + | PLATELET | 224 | 150 - 400 K/cu | [facility] [...] | + + + + + | [facility] | [address] | [place] [address] | | | PATHOLOGY | [address] | | | + + + + + | [facility] | [address] | [place] [address] | | | PATHOLOGY | [address] | | | + + + + + COMPLETE METABOLIC SET (NA,K,CL,CO2,BUN,CREAT,GLUC,CA,AST,ALT,BILI TOTAL,ALK PHOS,ALB,PROT TOTAL) (12/24/2007 7:24 AM PDT) + +--------+ + + + | Component | Value | Ref Range | Performed | Pathologist | | | | | At | Signature | + +--------+ + + + | GLUCOSE, | 85 | 60 - 99 mg/dL | [facility] | | | PLASMA | | | DEPARTMENT | | | (LAB) | | | OF | | | | | | PATHOLOGY | | + +--------+ + + + | BUN, PLASMA | 11 | 6 - 20 mg/dL | [facility] | | | (LAB) | | | DEPARTMENT | | | | | | OF | | | | | | PATHOLOGY | | + +--------+ + + + | CREATININE | 0.81 | 0.70 - 1.30 | [facility] | | | PLASMA | | mg/dL | DEPARTMENT | | | (LAB) | | | OF | | | | | | PATHOLOGY | | + +--------+ + + + | TOTAL | 6.8 | 6.1 - 7.9 g/dL | [facility] | | | PROTEIN, | | | DEPARTMENT | | | PLASMA | | | OF | | | (LAB) | | | PATHOLOGY | | + +--------+ + + + | ALBUMIN, | 3.6 | 3.5 - 4.7 g/dL | [facility] | | | PLASMA | | | DEPARTMENT | | | (LAB) | | | OF | | | | | | PATHOLOGY | | + +--------+ + + + | CALCIUM, | 9.4 | 8.6 - 10.2 | [facility] | | | PLASMA | | mg/dL | DEPARTMENT | | | (LAB) | | | OF | | | | | | PATHOLOGY | | + +--------+ + + + | BILIRUBIN | 0.6 | 0.3 - 1.2 mg/dL | [facility] | | | TOTAL | | | DEPARTMENT | | | | | | OF | | | | | | PATHOLOGY | | + +--------+ + + + | ALK PHOS | 98 | 53 - 128 U/L | [facility] | | | | | | DEPARTMENT | | | | | | OF | | | | | | PATHOLOGY | | + +--------+ + + + | AST(SGOT) | 47 (H) | 15 - 41 U/L | [facility] | | | | | | DEPARTMENT | | | | | | OF | | | | | | PATHOLOGY | | + +--------+ + + + | SODIUM, | 139 | 134 - 143 | [facility] | | | PLASMA | | mmol/L | DEPARTMENT | | | (LAB) | | | OF | | | | | | PATHOLOGY | | + +--------+ + + + | POTASSIUM, | 4.2 | 3.4 - 5.0 | [facility] | | | PLASMA | | mmol/L | DEPARTMENT | | | (LAB) | | | OF | | | | | | PATHOLOGY | | + +--------+ + + + | CHLORIDE, | 105 | 97 - 108 mmol/L | [facility] | | | PLASMA | | | DEPARTMENT | | | (LAB) | | | OF | | | | | | PATHOLOGY | | + +--------+ + + + | TOTAL CO2, | 29 | 23 - 31 mmol/L | [facility] | | | PLASMA | | | DEPARTMENT | | | (LAB) | | | OF | | | | | | PATHOLOGY | | + +--------+ + + + | ALT (SGPT) | 64 (H) | 13 - 48 U/L | [facility] | | | | | | DEPARTMENT | | | | | | OF | | | | | | PATHOLOGY | | + +--------+ + + + + + | Specimen | + + | Blood - Blood | + + + + + | Narrative | Performed At | + + + | [id number] Estimated GFR > 60 mL/min/1.73 sq m if non- | [facility] | | [place] [id number] Estimated GFR > 60 mL/min/1.73 sq m if | DEPARTMENT OF | | [place] GFR is estimated using the MDRD equation [...] | | - Rapidly changing kidney function New Reference ranges | | | effective 11/04/07 for: Sodium, Potassium, Chloride,Total CO2, | | | Calcium | | + + + + + + + + | Performing | Address | City/State/Zipcode | Phone Number | | Organization | | | | + + + + + | [facility] | [address] | [place] [address] | | | PATHOLOGY | [address] | | | + + + + + | [facility] | [address] | [place] [address] | | | PATHOLOGY | [address] | | | + + + + + US ABDOMEN COMPLETE (12/24/2007 7:23 AM PDT) + + + + + + | Component | Value | Ref Range | Performed | Pathologist | | | | | At | Signature | + + + + + + | US ABDOMEN | EXAM: Complete | | | | | COMPLETE | Abdominal Ultrasound | | | | | | 12/24/07HISTORY: 27 | | | | | | year old male with right | | | | | | upper quadrant | | | | | | abdominal pain.Outside | | | | | | abdominal ultrasound, | | | | | | not available for | | | | | | review, | | | | | | reportedlydemonstrated | | | | | | an enlarged | | | | | | spleen.COMPARISON: | | | | | | NoneFINDINGS:The liver | | | | | | echogenicity is normal. | | | | | | Liver surface | | | | | | appearance and liversize | | | | | | are within normal | | | | | | limits. There is no | | | | | | focal intrahepatic | | | | | | lesionor biliary | | | | | | dilatation. The | | | | | | gallbladder is normal. | | | | | | The common | | | | | | ductmeasures 3 mm in | | | | | | diameter.The pancreas is | | | | | | obscured by overlying | | | | | | bowel gas. The spleen | | | | | | gbslixxd70.5 cm in | | | | | | length and has normal | | | | | | echogenicity.The right | | | | | | and left kidneys are | | | | | | normal in echogenicity, | | | | | | measuring 11.0 and 10.0 | | | | | | cm in length, | | | | | | respectively. There is | | | | | | no solid renal | | | | | | mass,cyst, calculi, or | | | | | | hydronephrosis. | | | | | | Visualized portions of | | | | | | theabdominal aorta and | | | | | | IVC are normal in | | | | | | caliber. There is no | | | | | | ascites.Visualized | | | | | | portions of the bladder | | | | | | are | | | | | | normal.IMPRESSION:Mild | | | | | | splenomegaly without a | | | | | | focal parenchymal | | | | | | abnormality. | | | | | | Otherwiseunremarkable | | | | | | abdominal ultrasound.I | | | | | | have personally viewed | | | | | | this procedure/exam and | | | | | | reviewed this | | | | | | report.STATUS FINAL / | | | | | | Dr. EDWARDO GROSS | | | | + + + + + + + + | Specimen | + + | | + + + +---------+ + + | Performing | Address | City/State/Zipcode | Phone Number | | Organization | | | | + +---------+ + + | [facility] | | | | | RADIOLOGY | | | | + +---------+ + + documented in this encounter Visit Diagnoses + + | Diagnosis | + + | RUQ abdominal pain - Primary Abdominal pain, right upper quadrant | + + | Chronic hepatitis C without mention of hepatic coma | + + documented in this encounter"
--- OUTSIDE RECORDS SUMMARY | ~2019-05-18 | XMS | Encounter Summary ---
Demographics + + + | Address | [address] | | | [place] [address] | + + + | Home Phone | | + + + | Preferred Language | Unknown | + + + | Marital Status | Single | + + + | Gnosticism Affiliation | NON | + + + | Race | White | + + + | Ethnic Group | Not or | + + + Author + + + | Author | [facility] | + + + | Organization | [facility] | + + + | Address | Unknown | + + + | Phone | Unavailable | + + + Support + + +---------+ + | Name | Relationship | Address | Phone | + + +---------+ + | Per None, PT | ECON | Unknown | Unavailable | + + +---------+ + Care Team Providers + +------+ + | Care Sheep Rancher Name | Role | Phone | + +------+ + PCP | Unavailable | + +------+ + Encounter Details +--------+------+ + + + | Date | Type | Department | Care Team | Description | +--------+------+ + + + | 12/23/ | Lab | Laboratory at [facility] | | RUQ Abdominal Pain; | | 2007 | | [address] | | Chronic Hepatitis C | | | | [place], [place] | | without Mention of | | | | [address] | | Hepatic Coma | | | | [phone] | | | +--------+------+ + + + [...] | + +--------+ + + + | DIFFERENTIAL | Routin | 12/24/2007 | | Results for this | | | e | 7:24 AM | | procedure are in the | | | | PDT | | results section. | + +--------+ + + + | INR | Routin | 12/24/2007 | RUQ Abdominal Pain | Results for this | | | e | 7:24 AM | Chronic Hepatitis | procedure are in the | | | | PDT | C without Mention of | results section. | | | | | Hepatic Coma | | + +--------+ + + + | CBC, WITH | Routin | 12/24/2007 | RUQ Abdominal Pain | Results for this | | DIFFERENTIAL | e | 7:24 AM | Chronic Hepatitis | procedure are in the | | | | PDT | C without Mention of | results section. | | | | | Hepatic Coma | | + +--------+ + + + | COMPLETE METABOLIC | Routin | 12/24/2007 | RUQ Abdominal Pain | Results for this | | SET | e | 7:24 AM | Chronic Hepatitis | procedure are in the | | (NA,K,CL,CO2,BUN,CRE | | PDT | C without Mention of | results section. | | AT,GLUC,CA,AST,ALT,B | | | Hepatic Coma | | | EVER TOTAL,ALK | | | | | | PHOS,ALB,PROT TOTAL) | | | | | + +--------+ + + + documented in this encounter Results DIFFERENTIAL (12/24/2007 7:24 AM PDT) + +-------+ + + + | Component | Value | Ref Range | Performed | Pathologist | | | | | At | Signature | + +-------+ + + + | NEUTROPHIL | 59 | 50 - 70 % | [facility] | | | % | | | DEPARTMENT | | | | | | OF | | | | | | PATHOLOGY | | + +-------+ + + + | LYMPHOCYTE | 30 | 18 - 42 % | [facility] | | | % | | | DEPARTMENT | | | | | | OF | | | | | | PATHOLOGY | | + +-------+ + + + | MONOCYTE % | 9 (H) | 2 - 8 % | [facility] | | | | | | DEPARTMENT | | | | | | OF | | | | | | PATHOLOGY | | + +-------+ + + + | EOS % | 2 | 1 - 3 % | [facility] | | | | | | DEPARTMENT | | | | | | OF | | | | | | PATHOLOGY | | + +-------+ + + + | BASO % | 1 | <3 % | [facility] | | | | | | DEPARTMENT | | | | | | OF | | | | | | PATHOLOGY | | + +-------+ + + + | NEUTROPHIL | 4.4 | 1.8 - 7.7 K/cu | [facility] | | | # | | mm | DEPARTMENT | | | | | | OF | | | | | | PATHOLOGY | | + +-------+ + + + | LYMPHOCYTE | 2.3 | 1.0 - 4.8 K/cu | [facility] | | | # | | mm | DEPARTMENT | | | | | | OF | | | | | | PATHOLOGY | | + +-------+ + + + | MONOCYTE # | 0.7 | <0.9 K/cu mm | [facility] | | | | | | DEPARTMENT | | | | | | OF | | | | | | PATHOLOGY | | + +-------+ + + + | EOS # | 0.1 | <0.6 K/cu mm | [facility] | | | | | | DEPARTMENT | | | | | | OF | | | | | | PATHOLOGY | | + +-------+ + + + | BASO # | 0.1 | <0.2 | [facility] | | | | | [...] | + + + + + | [facility] | [address] | [place] [address] | | | PATHOLOGY | [address] | | | + + + + + | [facility] | [facility] [address] | [place] [address] | | | PATHOLOGY | [address] | | | + + + + + INR (12/24/2007 7:24 AM PDT) + + [...] | + + + + + | [facility] DEPARTMENT OF | [address] | [place] [address] | | | PATHOLOGY | [address] | | | + + + + + | [place] DEPARTMENT OF | [address] | [place] [address] | | | PATHOLOGY | [address] [...] | + + + + + | [facility] | [address] | [place] [address] | | | PATHOLOGY | [address] | | | + + + + + | [facility] OF | [address] | [place] [address] | | | PATHOLOGY | [address] [...] Performed At | + + + | [id number] Estimated GFR > 60 mL/min/1.73 sq m if non- | [facility] | | [place] [id number] Estimated GFR > 60 mL/min/1.73 sq m if | DEPARTMENT OF | | [place] GFR is estimated using the MDRD equation [...] | + + + + + | [facility] | [address] | [place] [address] | | | PATHOLOGY | [address] | | | + + + + + | [facility] | [address] | [place] [address] | | | PATHOLOGY | [address] | | | + + + + + documented in this encounter Visit Diagnoses + + | Diagnosis | + + | RUQ abdominal pain Abdominal pain, right upper quadrant | + + | Chronic hepatitis C without mention of hepatic coma | + + documented in this encounter"
--- OUTSIDE RECORDS SUMMARY | ~2019-05-18 | XMS | Encounter Summary ---
Demographics + + + | Address | [address] | | | [place] [address] | + + + | Home Phone [...] Team Providers + +------+ + | Care Solutions Specialist Name | Role | Phone | + +------+ + | Jae Robin MD | PCP | | + +------+ + Reason for Visit + + + | Reason | Comments | + + + | Catheter Problem | | + + + Encounter Details +--------+ + + + + | Date | Type | Department | Care Team | Description | +--------+ + + + + | 03/21/ | Telephone | Urology Adult | Wang Canchola MD | Catheter Problem | | 2009 | | [address] | | | | | | Mailcode: [id number] | | | | | | [facility] | | | | | | and Healing, | | | | | | [address] | | | | | | Floor [place], [place] | | | | | | [address] | | | | | | [phone] | | | +--------+ + + + [...]
--- OUTSIDE RECORDS SUMMARY | ~2019-05-18 | XMS | Encounter Summary ---
Demographics + + + | Address | [address] | | | [place] [address] | + + + | Home Phone | | + + + | Preferred Language | Unknown | + + + | Marital Status | Single | + + + | Buddhism Affiliation | NON | + + + | Race | White | + + + | Ethnic Group | Not or | + + + Author + + + | Author | [facility] | + + + | Organization | [facility] | + + + | Address | Unknown | + + + | Phone | Unavailable | + + + Support + + +---------+ + | Name | Relationship | Address | Phone | + + +---------+ + | Per None, PT | ECON | Unknown | Unavailable | + + +---------+ + Care Team Providers + +------+ + | Care Human Resources Supervisor Name | Role | Phone | + +------+ + PCP | Unavailable | + +------+ + Encounter Details +--------+ + + + + | Date | Type | Department | Care Team | Description | +--------+ + + + + | 12/27/ | Telephone | [facility] | Jeancarlos Marley MD | | | 2007 | | [place] [address] [address] | [address] | | | | | [address] | [place], [place] | | | | | Mailcode: [id number] | [address] | | | | | [facility] | [phone] | | | | | and Healing, | | | | | | [address] | | | | | | [place], [place] | | | | | | [address] | | | | | | [phone] | | | +--------+ + + + [...]
--- OUTSIDE RECORDS SUMMARY | ~2019-05-18 | XMS | Encounter Summary ---
Demographics + + + | Address | [address] | | | [place] [address] | + + + | Home Phone [...] Author + + + | Author | [facility] | + + + | Organization | [facility] | + + + | Address | Unknown | + + + | Phone | Unavailable | + + + Support + + +---------+ + | Name | Relationship | Address | Phone | + + +---------+ + | Per None, PT | ECON | Unknown | Unavailable | + + +---------+ + Care Team Providers + +------+ + | Care Oxyhydrogen Welder Name | Role | Phone | + +------+ + | Lakesha River | PCP | | + +------+ + Encounter Details +--------+------+ + + + | Date | Type | Department | Care Team | Description | +--------+------+ + + + | 02/27/ | Lab | Laboratory at [facility] | | Chronic Hepatitis C | | 2007 | | [address] | | without Mention of | | | | [place], [place] | | Hepatic Coma | | | | [address] | | | | | | [phone] | | | +--------+------+ + + + [...] + + documented in this encounter Results [facility] - INR (PROTHROMBINTIME) (02/28/2008 9:24 AM PDT) [...] | + + + + + | [facility] DEPARTMENT OF | [address] | [place] [address] | | | PATHOLOGY | [address] | | | + + + + + | [facility] DEPARTMENT OF | [address] | [place] [address] | | | PATHOLOGY | [address] [...] | + + + + + | [facility] DEPARTMENT | [address] | [place] [address] | | | PATHOLOGY | [address] | | | + + + + + | [facility] | [address] | [place] [address] | | | PATHOLOGY | [address] | | | + + + + + [facility] - COMPLETE METABOLIC SET (02/28/2008 9:24 AM [...] DEPARTMENT OF | [address] | [place] [address] | | | PATHOLOGY | [address] | | | + + + + + | [facility] DEPARTMENT OF | [address] | [place] [address] | | | PATHOLOGY | [address] | | | + + + + + documented in this encounter Visit Diagnoses + + | Diagnosis | + + | Chronic hepatitis C without mention of hepatic coma | + + documented in this encounter"
--- OUTSIDE RECORDS SUMMARY | ~2019-05-18 | XMS | Encounter Summary ---
Demographics + + + | Address | GENERAL DELIVERY | | | [place] [address] | + + + | Home Phone [...] Team Providers + +------+ + | Care Hydrodynamics Professor Name | Role | Phone | + +------+ + | Fam Donnelly MD | PCP | | + +------+ + Reason for Referral Consultation (Routine) +--------+--------+ + + + + | Status | Reason | Specialty | Diagnoses / | Referred By | Referred To | | | | | Procedures | Contact | Contact | +--------+--------+ + + + + | Closed | | Urology | Diagnoses | Richar, | Mery | | | | | Suprapubic | Akil Yu MD | MD [place] | | | | | abdominal | [address] | [address] | | | | | pain | [facility] | Ave | | | | | Neurogenic | Rd | [facility] [place] | | | | | bladder | [facility] [place] | [address] | | | | | Procedures | [id number] | Phone: | | | | | CONSULT TO | Phone: | [phone] | | | | | UROLOGY | [phone] | Fax: | | | | | | Fax: | [phone] | | | | | | [phone] | | +--------+--------+ + + + + Reason for Visit + + + | Reason | Comments | + + + | Catheter Problem | | + + + Encounter Details +--------+ + + + + | Date | Type | Department | Care Team | Description | +--------+ + + + + | 02/22/ | Emergency | [facility] Emergency | Fe Walter, | | | 2017 - | | Department [address] | Edith Kelley MD [address] | | | | | [facility] | [facility] | | | 02/23/ | | [facility] | [address], [place] | | | 2017 | | [place], [place] | [address] | | | | | [address] | | | | | | [phone] | | | +--------+ + + + [...] documented in this encounter Discharge Instructions Instructions Akil Mcqueen MD - 02/23/2017Wilda Richardson, Thank you for coming to the Emergency Department at [facility] for your care. You were evaluated for suprapubic pain and concern for a foreign body in your bladder. We checked a thorough physical exam and urinalysis, which does show signs of infection. An ultrasound of your bladder did not show a foreign body, but that is not a definitive test. You were given pain medicine and a prescription for antibiotics (ciprofloxacin), and pyridi um and oxybutynin which you can take as prescribed for pain, in addition to tylenol and ibup rofen. Pain Medication You can take acetaminophen (Tylenol) and ibuprofen (Advil) for pain as needed. -It is usually safe to take up to 1000 mg of acetaminophen every 6 hours and up to 600 mg o f ibuprofen every 6 hours. It is safe to combine or alternate between these medicines, and o ften they complement each other well. -Be careful about taking other dcvd-mzw-tarvzkr medicines, which may contain acetaminophen or ibuprofen and could lead to toxicity. -If you have liver disease, kidney disease or stomach ulcers, the standard doses of these m edicines may be too high for you. -We expect that your pain will improve over the next few days, and do not expect that you w ill need to continue these medicines senior care. You should talk to your primary care doctor about ongoing pain management, and ask for guidance if you have other questions about safe m edication dosing. We feel that you may go home at this time, however, we are only evaluating you at this mome nt and your condition may change. Please return to the Emergency Department immediately if the symptoms that brought you in t chad get worse or change in a way that you find concerning, or if you experience: -Dizziness or fainting -Fevers or chills -Shortness of breath -Nausea or vomiting that prevent you from keeping down any foods or liquids or any other new symptoms that you find concerning. We placed a referral to our urology clinic here. If you do not here from them in the next d ay or two, call to follow up. Otherwise, it is important for you to see your primary care doctor for follow-up and [facility]. Care delivered in the Emergency Department should not be considered as a substitute for [facility] care and/or specialist care for ongoing medical issues, and it is important that you fo llow up as described above. Thank you for letting us care for you at the [facility] Emergency Department today. Note: If you had blood tests or imaging studies performed during your visit, the results of these tests may be preliminary. We will follow up on the results of these tests over the next few days, which may change to your treatment plan. If this happens, we will attempt contact you . If you need to update your contact information, please alert your nurse or physician befor e you leave the Emergency Department. documented in this encounter Medications at Time of Discharge + + + +---------+ + + | Medication | Sig | Dispensed | Refills | Start | End Date | | | | | | Date | | + + + +---------+ + + | acetaminophen 650 | Take 650 mg by mouth | | 0 | | | | mg Oral Tablet | every eight hours | | | | | | | as needed. | | | | | + + + +---------+ + + | Alum-Mag | Take by mouth every | | 0 | | | | Hydroxide-Simeth | four hours as | | | | | | 400-400-30 mg/5 mL | needed. | | | | | | Oral Suspension | | | | | | + + + +---------+ + + | benztropine 2 mg | Take 2 mg by mouth | | 0 | | | | Oral Tablet | every six hours as | | | | | | | needed. | | | | | + + + +---------+ + + | busPIRone 5 mg | take 1 tablet (5 mg) | 0 | 0 | 12/20/19 | | | Oral Tablet | by oral route 2 | | | 08 | | | | times per day | | | | | + + + +---------+ + + | Calcium Carbonate | Take 500 mg by mouth | | 0 | | | | 500 mg Oral Capsule | every six hours as | | | | | | | needed. | | | | | + + + +---------+ + + | cephALEXin 500 mg | Take 500 mg by mouth | | 0 | | | | Oral Capsule | once daily. | | | | | + + + +---------+ + + | chlorproMAZINE 100 | take 1 tablet (100 | 0 | 0 | 12/20/19 | | | mg Oral Tablet | mg) by oral route | | | 08 | | | | once daily | | | | | + + + +---------+ + + | Cholecalciferol, | Take by mouth once | | 0 | | | | Vitamin D3, (VITAMIN | daily. | | | | | | D-3) 2,000 unit | | | | | | | Oral Capsule | | | | | | + + + +---------+ + + | Cranberry Extract | Take by mouth two | | 0 | | | | (CRANBERRY) 450 mg | times daily. | | | | | | Oral Tablet | | | | | | + + + +---------+ + + | DIVALPROEX SODIUM | Take 1,000 mg by | | 0 | | | | (DIVALPROEX ORAL) | mouth once daily at | | | | | | | bedtime. | | | | | + + + +---------+ + + | Haloperidol | Inject into the | | 0 | | | | Lactate 5 mg/mL | muscle (IM) every | | | | | | Intramuscular | six hours as needed. | | | | | | Syringe | | | | | | + + + +---------+ + + | | Take 1 Tab by mouth | | 0 | | | | HYDROcodone-acetamin | every four hours as | | | | | | ophen 5-500 mg Oral | needed. Not to | | | | | | Tablet [...] + + + +---------+ + + | lidocaine 20 mg/mL | by Infiltration | | 0 | | | | (2 %) Injection | route as needed. | | | | | | Solution | | | | | | + + + +---------+ + + | LIOTHYRONINE | Take 10 mg by mouth | | 0 | | | | SODIUM (LIOTHYRONINE | once daily. | | | | | | ORAL) | | [...] + + + +---------+ + + | lithium carbonate | Take 300 mg by mouth | | 0 | | | | 300 mg Oral Capsule | once daily at | | | | | | | bedtime. | | | | | + + + +---------+ + + | LORAZEPAM (ATIVAN | Take by mouth. | | 0 | | | | ORAL) | | | | | | + + + +---------+ + + | | by Mucous Membrane | | 0 | | | | LYTES/CARBOXYMETHYLC | route every two | | | | | | ELLULOSE (SALIVA | hours as needed. | | | | | | SUBSTITUTE MM) | | | | | | + + + +---------+ + + | MIRTAZAPINE | Take by mouth. | | 0 | | | | (REMERON ORAL) | | | | | | + + + +---------+ + + | olanzapine 10 mg | Inject 10 mg into | | 0 | | | | Intramuscular Recon | the muscle (IM) as | | | | | | Soln | needed. | | | | | + + + +---------+ + + | olanzapine 5 mg | Take 5 mg by mouth | | 0 | | | | Oral Tablet | once daily at | | | | | | | bedtime. | | | | | + + + +---------+ + + | OMEPRAZOLE | Take by mouth. | | 0 | | | | (PRILOSEC ORAL) | | | | | | + + + +---------+ + + | omeprazole 20 mg | Take 20 mg by mouth | | 0 | | | | Oral Capsule, | two times daily. | | | | | | Delayed | | | | | | | Release(E.C.) | | | | | | + + + +---------+ + + | oxybutynin | Take 1 Tab by mouth | 14 Tab | 2 | 03/07/20 | | | (DITROPAN) 5 mg Oral | two times daily. | | | 10 | | | Tablet | | | | | | + + + +---------+ + + | oxybutynin 5 mg | Take 1 tablet by | 30 | 0 | 02/24/20 | | | oral tablet | mouth three times | tablet | | 17 | | | | daily as needed | | | | | | | (bladder pain). | | | | | + + + +---------+ + + | oxyCODONE | Take 2 Dose(s) by | | 0 | | | | (immediate release) | mouth every four | | | | | | 5 mg Tab 5 mg, | hours as needed. | | | | | | acetaminophen 325 mg | | | | | | | Tab 325 mg | | | | | | + + + +---------+ + + | paroxetine 20 mg | take 1 tablet (20 | 0 | 0 | 12/20/19 | | | Oral Tablet | mg) by oral route | | | 08 | | | | once daily | | | | | + + + +---------+ + + | prazosin 1 mg Oral | Take 1 mg by mouth | | 0 | | | | Capsule | once daily. | | | | | + + + +---------+ + + | promethazine 25 mg | Take 25 mg by mouth | | 0 | | | | Oral Tablet | as needed. | | | | | + + + +---------+ + + | Psyllium Oral | Take by mouth as | | 0 | | | | Powder | needed. | | | | | + + + +---------+ + + | Simethicone 80 mg | Take by mouth three | | 0 | | | | Oral Tablet | times daily. | | | | | + + + +---------+ + + | traMADol 25 mg | Take by mouth every | | 0 | | | | Oral Tablet | six hours as | | | | | | | needed. | | | | | + + + +---------+ + + | | Take 1 Tab by mouth | 28 Tab | 0 | 02/27/20 | | | trimethoprim-sulfame | two times daily. | | | 11 | | | thoxazole 160-800 mg | | | | | | | Oral Tablet | | | | | | + + + +---------+ + + | zolpidem 10 mg | Take 10 mg by mouth | | 0 | | | | Oral Tablet | once daily at | | | | | | | bedtime as needed. | | | | | + + + +---------+ + + | ciprofloxacin HCl | Take 1 tablet by | 20 | 0 | 02/24/20 | | | 500 mg oral tablet | mouth every twelve | tablet | | 17 | 7 | | | hours for 10 days. | | | | | + + + +---------+ + + | phenazopyridine | Take 1 tablet by | 6 | 0 | 02/24/20 | | | 200 mg oral tablet | mouth three times | tablet | | 17 | 7 | | | daily as needed for | | | | | | | up to 2 days. | | | | | | | Administer after | | | | | | | meals for 2 days. | | | | | + + + +---------+ + + documented as of this encounter Plan of Treatment Not on filedocumented as of this encounter Procedures + +--------+ + + + | Procedure Name | Priori | Date/Time | Associated Diagnosis | Comments | | | ty | | | | + +--------+ + + + | UA DIPSTICK 10 DIP | Urgent | 02/23/2017 | Suprapubic | Results for this | | W/O MICRO | | 1:36 AM | abdominal pain | procedure are in the | | (AUTOMATED), POC | | PDT | | results section. | + +--------+ + + + | URINE, MICROSCOPIC | Urgent | 02/22/2017 | | Results for this | | EXAM | | 11:25 PM | | procedure are in the | | | | PDT | | results section. | + +--------+ + + + | URINE SCREEN FOR | Urgent | 02/22/2017 | | Results for this | | CULTURE | | 11:25 PM | | procedure are in the | | | | PDT | | results section. | + +--------+ + + + | URINE CULTURE WORKUP | Routin | 02/22/2017 | | Results for this | | | e | 11:25 PM | | procedure are in the | | | | PDT | | results section. | + +--------+ + + + | CULTURE, URINE [facility] | Routin | 02/22/2017 | | Results for this | | | e | 11:25 PM | | procedure are in the | | | | PDT | | results section. | + +--------+ + + + | RAINBOW HOLD TUBE - | Urgent | 02/22/2017 | | | | RED TOP | | 8:42 PM | | | | | | PDT | | | + +--------+ + + + | RAINBOW HOLD TUBE - | Urgent | 02/22/2017 | | | | PURPLE TOP | | 8:42 PM | | | | | | PDT | | | + +--------+ + + + | RAINBOW HOLD TUBE - | Urgent | 02/22/2017 | | | | GREEN TOP | | 8:42 PM | | | | | | PDT | | | + +--------+ + + + | RAINBOW HOLD TUBE - | Urgent | 02/22/2017 | | | | BLUE TOP | | 8:42 PM | | | | | | PDT | | | + +--------+ + + + | RAINBOW HOLD, CORE | Urgent | 02/22/2017 | | Results for this | | PANEL | | 8:42 PM | | procedure are in the | | | | PDT | | results section. | + +--------+ + + + | BLOOD BANK HOLD TUBE | Urgent | 02/22/2017 | | Results for this | | - DON | | 8:42 PM | | procedure are in the | | | | PDT | | results section. | | T PROCESS | | | | | + +--------+ + + + | ED INFORMATION | Routin | 02/22/2017 | | Results for this | | EXCHANGE | e | 8:33 PM | | procedure are in the | | | | PDT | | results section. | + +--------+ + + + documented in this encounter Results UA YOKO ALCANTARA (02/23/2017 1:36 AM PDT) + + + + + + | Component | Value | Ref Range | Performed | Pathologist | | | | | At | Signature | + + + + + + | COLOR (UA | Dark yellow | | [facility] - | | | DIP), POC | | | [facility] | | | | | | [place], POINT | | | | | | OF CARE | | | | | | TESTS | | + + + + + + | APPEARANCE | Slightly Cloudy | | [facility] - | | | (UA DIP), | | | [facility] | | | POC | | | [place], POINT | | | | | | OF CARE | | | | | | TESTS | | + + + + + + | LEUKOCYTES | Small (A) | Negative | [facility] - | | | (UA DIP), | | | [facility] | | | POC | | | [place], POINT | | | | | | OF CARE | | | | | | TESTS | | + + + + + + | NITRITES | Positive (A) | Negative | [facility] - | | | (UA DIP), | | | [facility] | | | POC | | | [place], POINT | | | | | | OF CARE | | | | | | TESTS | | + + + + + + | UROBILINOGE | 0.2 | 0.2 - 1.0 | [facility] - | | | N (UA DIP), | | E.U./dL | [facility] | | | POC | | | [place] POINT | | | | | | OF CARE | | | | | | TESTS | | + + + + + + | PROTEIN (UA | 100.0 (A) | Neg - Trace | [facility] - | | | DIP), POC | | mg/dL | [facility] | | | | | | [place] | | | | | | OF CARE | | | | | | TESTS | | + + + + + + | PH (UA | 8.5 (A) | 5.0 - 8.0 | [facility] - | | | DIP), POC | | | [facility] | | | | | | [place] POINT | | | | | | OF CARE | | | | | | TESTS | | + + + + + + | BLOOD (UA | Large (A) | Negative | [facility] - | | | DIP), POC | | | [facility] | | | | | | [place], POINT | | | | | | OF CARE | | | | | | TESTS | | + + + + + + | SPECIFIC | 1.020 | 1.005 - 1.030 | [facility] - | | | GRAVITY (UA | | | [facility] | | | DIP), POC | | | [place], POINT | | | | | | OF CARE | | | | | | TESTS | | + + + + + + | KETONES (UA | Negative | Negative mg/dL | [facility] - | | | DIP), POC | | | [facility] | | | | | | [place], POINT | | | | | | OF CARE | | | | | | TESTS | | + + + + + + | BILIRUBIN | Negative | Negative | [facility] - | | | (UA DIP), | | | [facility] | | | POC | | | [place], POINT | | | | | | OF CARE | | | | | | TESTS | | + + + + + + | GLUCOSE (UA | Negative | Negative - | [facility] - | | | DIP), POC | | Trace mg/dL | [facility] | | | | | | [place] | | | | | | OF CARE | | | | | | TESTS | | + + + + + + + + | Specimen | + + | Urine - Urine | | (substance) | + + + + + + + | Performing | Address | City/State/Zipcode | Phone Number | | Organization | | | | + + + + + | [facility] | [address] | [place], [place] | | | [place] POINT OF CARE | [address] | [address] | | | TESTS | | | | + + + + + URINE, MICROSCOPIC EXAM (02/22/2017 11:25 PM PDT) + +---------+ + + + | Component | Value | Ref Range | Performed | Pathologist | | | | | At | Signature | + +---------+ + + + | RED CELLS | 443 (H) | 0 - 3 /hpf | [facility] | | | | | | LABORATORY | | | | | | SERVICES, | | | | | | CORE | | + +---------+ + + + | WHITE CELLS | 72 (H) | 0 - 5 /hpf | [facility] | | | | | | LABORATORY | | | | | | SERVICES, | | | | | | CORE | | + +---------+ + + + | BACTERIA | Few (A) | None /hpf | [facility] | | | | | | LABORATORY | | | | | | SERVICES, | | | | | | CORE | | + +---------+ + + + | YEAST (LAB) | None | None /hpf | [facility] | | | | | | LABORATORY | | | | | | SERVICES, | | | | | | CORE | | + +---------+ + + + | JUD | Raya (A) | None /hpf | [facility] | | | EPITHELIAL | | | LABORATORY | | | | | | SERVICES, | | | | | | CORE | | + +---------+ + + + | LULA | Raya (A) | None /hpf | [facility] | | | | | | LABORATORY | | | | | | SERVICES, | | | | | | CORE | | + +---------+ + + + | TRICHOMONAS | None | None /hpf | [facility] | | | | | | LABORATORY | | | | | | SERVICES, | | | | | | CORE | | + +---------+ + + + | NON-WALDOAMRUSS | Raya (A) | None /hpf | [facility] | | | S EPITH | | | LABORATORY | | | | | | SERVICES, | | | | | | CORE | | + +---------+ + + + | HYALINE | 0 | 0 - 2 /lpf | [facility] | | | CASTS | | | LABORATORY | | | | | | SERVICES, | | | | | | CORE | | + +---------+ + + + | GRANULAR | 0 | 0 - 2 /lpf | [facility] | | | CASTS | | | LABORATORY | | | | | | SERVICES, | | | | | | CORE | | + +---------+ + + + | CELLULAR | 0 | <=0 /lpf | [facility] | | | CASTS | | | LABORATORY | | | | | | SERVICES, | | | | | | CORE | | + +---------+ + + + | TRIPLE P04 | None | None /hpf | [facility] | | | CRYSTALS | | | LABORATORY | | | | | | SERVICES, | | | | | | CORE | | + +---------+ + + + | CALCIUM | Few (A) | None /hpf | [facility] | | | OXALATE | | | LABORATORY | | | MICHAELA | | | SERVICES, | | | | | | CORE | | + +---------+ + + + | URIC ACID | None | None /hpf | [facility] | | | CRYSTALS | | | LABORATORY | | | | | | SERVICES, | | | | | | CORE | | + +---------+ + + + | AMORPHOUS | None | None /hpf | [facility] | | | CRYSTALS | | | LABORATORY | | | | | | SERVICES, | | | | | | CORE | | + +---------+ + + + + + | Specimen | + + | Urine | + + + + + + + | Performing | Address | City/State/Zipcode | Phone Number | | Organization | | | | + + + + + | [facility] | [address] | [place] [address] | | | SERVICES, CORE | [address] | | | + + + + + URINE SCREEN FOR CULTURE (02/22/2017 11:25 PM PDT) + + + + + + | Component | Value | Ref Range | Performed | Pathologist | | | | | At | Signature | + + + + + + | URINE | Positive (A) | Negative | [facility] | | | SCREEN FOR | | | LABORATORY | | | CULTURE | | | SERVICES, | | | | | | CORE | | + + + + + + + + | Specimen | + + | Urine | + + + + + | Narrative | Performed At | + + + | Culture Screen Positive, specimen sent for culture. | [facility] | | | LABORATORY | | | [address] | + + + + + + + + | Performing | Address | City/State/Zipcode | Phone Number | | Organization | | | | + + + + + | [facility] | [address] | [place] [address] | | | [address] | [address] | | | + + + + + URINE CULTURE WORKUP (02/22/2017 11:25 PM PDT) + + + + + + | Component | Value | Ref Range | Performed | Pathologist | | | | | At | Signature | + + + + + + | ORGANISM | Pseudomonas aeruginosa | | [facility] - | | | | (A) | | [facility] - | | | | | | [place] | | + + + + + + | ORGANISM | Enterococcus faecalis | | [facility] - | | | | (A) | | [facility] - | | | | | | [place] | | + + + + + + + + | Specimen | + + | Urine | + + + + + | Narrative | Performed At | + + + | Culture Report: >100,000 cfu/ml Pseudomonas aeruginosa >100,000 | [facility] - | | cfu/ml Enterococcus faecalis | [facility]PORT - | | | [place] | + + + + + + + + | Organism | Antibiotic | Method | Susceptibility | + + + + + | Pseudomonas | Cefepime | SUSCEPTIBILITY-JOSE M | Sensitive | | aeruginosa | | | | + + + + + | Pseudomonas | Ceftazidime | SUSCEPTIBILITY-JOSE M | Sensitive | | aeruginosa | | | | + + + + + | Pseudomonas | Ciprofloxacin | SUSCEPTIBILITY-JOSE M | Sensitive | | aeruginosa | | | | + + + + + | Pseudomonas | Gentamicin | SUSCEPTIBILITY-JOSE M | Sensitive | | aeruginosa | | | | + + + + + | Pseudomonas | Meropenem | SUSCEPTIBILITY-JOSE M | Sensitive | | aeruginosa | | | | + + + + + | Pseudomonas | Piperacillin/Tazobac | SUSCEPTIBILITY-JOSE M | Sensitive | | aeruginosa | cordova | | | + + + + + | Pseudomonas | Tobramycin | SUSCEPTIBILITY-JOSE M | Sensitive | | aeruginosa | | | | + + + + + | Enterococcus | Ampicillin | SUSCEPTIBILITY-JOSE M | Sensitive | | faecalis | | | | + + + + + | Enterococcus | Ciprofloxacin | SUSCEPTIBILITY-JOSE M | Sensitive | | faecalis | | | | + + + + + | Enterococcus | Nitrofurantoin | SUSCEPTIBILITY-JOSE M | Sensitive | | faecalis | | | | + + + + + | Enterococcus | Tetracycline | SUSCEPTIBILITY-JOSE M | Sensitive | | faecalis | | | | + + + + + | Enterococcus | Vancomycin | SUSCEPTIBILITY-JOSE M | Sensitive | | faecalis | | | | + + + + + + + + + + | Performing | Address | City/State/Zipcode | Phone Number | | Organization | | | | + + + + + | [facility] | [address] | [place] [address] | | | [place] | | | | + + + + + CULTURE, URINE [facility] (02/22/2017 11:25 PM PDT) + + + + + + | Component | Value | Ref Range | Performed | Pathologist | | | | | At | Signature | + + + + + + | URINE | See Cx Results (A) | | [facility] | | | CULTURE | | | LABORATORY | | | [facility] | | | SERVICES, | | | | | | CORE | | + + + + + + + + | Specimen | + + | Urine | + + + + + + + | Performing | Address | City/State/Zipcode | Phone Number | | Organization | | | | + + + + + | [facility] | [address] | [place] [address] | | | [address] | [address] | | | + + + + + RAINBOW HOLD TUBE - RED TOP (02/22/2017 8:42 PM PDT) + + | Specimen | + + | Blood - Blood | | (substance) | + + + + + + + | Performing | Address | City/State/Zipcode | Phone Number | | Organization | | | | + + + + + | [facility] | [address] | [place] [address] | | | [address] | [address] | | | + + + + + RAINBOW HOLD TUBE - PURPLE TOP (02/22/2017 8:42 PM PDT) + + | Specimen | + + | Blood - Blood | | (substance) | + + + + + + + | Performing | Address | City/State/Zipcode | Phone Number | | Organization | | | | + + + + + | [email or web address] | [address] | [place] [address] | | | [place], NANCY | [address] | | | + + + + + RAINBOW HOLD TUBE - GREEN TOP (02/22/2017 8:42 PM PDT) + + | Specimen | + + | Blood - Blood | | (substance) | + + + + + + + | Performing | Address | City/State/Zipcode | Phone Number | | Organization | | | | + + + + + | [email or web address] | [address] | [place] [address] | | | SERVICES, CORE | [address] | | | + + + + + RAINBOW HOLD TUBE - BLUE TOP (02/22/2017 8:42 PM PDT) + + | Specimen | + + | Blood - Blood | | (substance) | + + + + + + + | Performing | Address | City/State/Zipcode | Phone Number | | Organization | | | | + + + + + | [facility] | [address] | [place] [address] | | | SERVICES, CORE | [address] | | | + + + + + BLOOD BANK HOLD TUBE - DON T PROCESS (02/22/2017 8:42 PM PDT) + + + + + + | Component | Value | Ref Range | Performed | Pathologist | | | | | At | Signature | + + + + + + | SPECIMEN | Sample received with | | [facility] | | | COLLECTED, | adeq label/volume to | | LABORATORY | | | HELD | process | | SERVICES, | | | | | | TRANSFUSION | | | | | | MEDICINE | | + + + + + + + + | Specimen | + + | Blood - Blood | | (substance) | + + + + + + + | Performing | Address | City/State/Zipcode | Phone Number | | Organization | | | | + + + + + | [facility] | [address] | [place] [address] | | | SERVICES, | [address] | | | | TRANSFUSION MEDICINE | | | | + + + + + ED INFORMATION EXCHANGE (02/22/2017 8:33 PM PDT) + + | Specimen | + + | | + + + + + | Narrative | Performed At | + + + | [id number] This patient has registered at the | COLLECTIVE | | [facility] Emergency Department For more | MEDICAL | | information visit: | TECHNOLOGIES | | [email or web address] | | | [id number] ED Care Guidelines from [facility] Last | | | Updated: 12/03/16 2:35 PM Care Coordination: ENCOURAGE PATIENT | | | TO USE PCP FOR FOLLOW UP AND NON-EMERGENT PROBLEMS. GIVE PATIENT THIS | | | ROUSTABOUT HAND NAME AND NUMBER FOR HELP AND QUESTIONS. MARSHALL AMADOR ED | | | MANAGER RESPIRATORY [facility] [phone] These are guidelines | | | and the provider should exercise clinical judgment when providing | | | care. Care History Behavioral 12/03/16 12:00 AM [facility] | | | Hospital PT [facility] [place] -- ATTN:IVONNE | | | [place] Medical/Surgical 11/03/14 12:00 AM [facility] [place] [facility] | | | Hospital Smoker Methamphetamine abuse Recent Emergency | | | Department Visit Summary Admit Date Facility City State Type Major | | | Type Diagnoses or Chief Complaint Feb 22, 2017 [facility] | | | [facility] [place] Emergency Emergency [phone]. | | | Cath issue Feb 20, [address] [facility] [place]. [place] | | | Emergency Emergency dizzy Generalized Body Aches | | | Neuromuscular dysfunction of bladder, unspecified Feb 18, 2017 [facility] | | | [place] Emergency Emergency Other stimulant | | | abuse, uncomplicated Other senior care (current) drug therapy | | | Nicotine dependence, unspecified, uncomplicated Anxiety | | | disorder, unspecified Foreign body in bladder, initial encounter | | | Bipolar disorder, unspecified Allergy status to other | | | drugs, medicaments and biological substances status Other | | | nonmedicinal substance allergy status Allergy status to other | | | antibiotic agents status Hematuria, unspecified Feb 16, 2017 | | | [facility] [place] Emergency Emergency Chief Complaint: | | | Urinary Problem Feb 03, 2017 [facility] | | | [place] Emergency Emergency Chief Complaint: URO MALE Jan | | | 2016 [facility] [place] Emergency | | | Emergency Bipolar disorder, unspecified Nicotine | | | dependence, cigarettes, uncomplicated Other stimulant | | | dependence, uncomplicated Dec 30, 2016 [facility] | | | [place] Emergency Emergency catheter issues Urinary | | | Catheter Insertion Other urethritis Retention of urine, | | | unspecified Other stimulant abuse, uncomplicated Dec 03, | | | 2016 [facility] [place] Emergency Emergency Bipolar | | | disorder, unspecified Schizoaffective disorder, unspecified | | | Other senior care (current) drug therapy Nicotine dependence, | | | unspecified, uncomplicated Anxiety disorder, unspecified | | | Allergy status to other antibiotic agents status Allergy status | | | to other drugs, medicaments and biological substances status | | | Other fatigue Delusional disorders Essential (primary) | | | hypertension Nov 24, 2016 [facility] [place] Emergency | | | Emergency Encounter for other general examination | | | Allergy status to other drugs, medicaments and biological substances | | | status Bipolar disorder, unspecified Other terminal make up operator | | | (current) drug therapy Major depressive disorder, single | | | episode, unspecified Essential (primary) hypertension | | | Recent Inpatient Visit Summary No recorded inpatient visits. | | | E.D. Visit Count (12 mo.) Facility Visits [facility] | | | System 2 [facility] [place] 1 [facility] | | | Center 1 [facility] 1 [facility] | | | Center 2 [facility] ED [address] [facility] 15 | | | Total 23 Note: Visits indicate total known visits. Care | | | Providers Provider PRC Type Phone Fax Service Dates Fam Donnelly, | | | MD TORI Primary Care Current [facility] | | | MENTAL HEALTH, Mental Health Provider ([id number]) | | | [phone] Nov 15, 2016 - Current Summer PAULINA Norman Case or Care | | | Diagnostic Radiologist Current The above | | | information is provided for the sole purpose of patient treatment. | | | Use of this information beyond the terms of Data Sharing Memorandum of | | | Understanding and License Agreement is prohibited. In certain cases | | | not all visits may be represented. Consult the aforementioned | | | facilities for additional information. 2017 [employer] | | | [employer] - [place], [place] - | | | [email or web address] | | + + + + + | Procedure Note | + + | Service Account, Rtf Results Inbound - 02/22/2017 8:34 PM PDT Formatting of this | | note might be different from the original.NIRANJAN?NOTIFICATION?02/22/2017 20:33?ROMERO, | | AALIYAH? patient has registered at the [facility] | | [place] [facility] For more information visit: | | [email or web address] ED Care | | [facility]: 12/03/16 2:35 PM Care | | Coordination:ENCOURAGE PATIENT TO USE PCP FOR FOLLOW UP AND NON-EMERGENT PROBLEMS.GIVE | | PATIENT THIS ROUSTABOUT HAND NAME AND NUMBER FOR HELP AND QUESTIONS.MARSHALL AMADORED CASE | | [facility] D[facility] [phone] are guidelines and the provider should | | exercise clinical judgment when providing care.Care HistoryBehavioral12/03/16 12:00 AM | | [facility] [employer] -- ATTN:? IVONNE | | CONKEYMedical/Surgical11/03/14 12:00 AM [facility] | | HospitalSmokerMethamphetamine abuseRecent Emergency Department Visit SummaryAdmit Date | | Facility City State Type Major Type Diagnoses or Chief Complaint Feb 22, 2017 [place] | | [facility] [place] Emergency Emergency 10,800. Cath issue Feb | | 2016 [place]. [place] Emergency Emergency dizzy Generalized | | Body Aches Neuromuscular dysfunction of bladder, unspecified Feb 18, [address] [facility] [address] | | [place] Emergency Emergency Other stimulant abuse, uncomplicated | | Other senior care (current) drug therapy Nicotine dependence, unspecified, | | uncomplicated Anxiety disorder, unspecified Foreign body in bladder, initial | | encounter Bipolar disorder, unspecified Allergy status to other drugs, medicaments | | and biological substances status Other nonmedicinal substance allergy status | | Allergy status to other antibiotic agents status Hematuria, unspecified Feb 16, 2017 | | [place] Emergency Emergency Chief Complaint: Urinary Problem Sep | | 2016 [facility] [place] Emergency Emergency Chief | | Complaint: URO MALE Jan 25, 2017 [facility] [place] Emergency | | Emergency Bipolar disorder, unspecified Nicotine dependence, cigarettes, | | uncomplicated Other stimulant dependence, uncomplicated Dec 30, 2016 [facility] | | [place]. [place] Emergency Emergency catheter issues Urinary Catheter | | Insertion Other urethritis Retention of urine, unspecified Other stimulant | | abuse, uncomplicated Dec 03, 2016 [facility] [place] Emergency Emergency | | Bipolar disorder, unspecified Schizoaffective disorder, unspecified Other long | | term (current) drug therapy Nicotine dependence, unspecified, uncomplicated | | Anxiety disorder, unspecified Allergy status to other antibiotic agents status | | Allergy status to other drugs, medicaments and biological substances status Other | | fatigue Delusional disorders Essential (primary) hypertension Nov 24, 2016 [facility] | | [place] Emergency Emergency Encounter for other general examination | | Allergy status to other drugs, medicaments and biological substances status | | Bipolar disorder, unspecified Other terminal make up operator (current) drug therapy Major | | depressive disorder, single episode, unspecified Essential (primary) hypertension | | Recent Inpatient Visit SummaryNo recorded inpatient visits. E.D. Visit Count (12 | | mo.)Facility Visits [facility] 2 [facility] | | [address] 1 [facility] 1 [facility] | | Medical [place] [address] [facility] ED 1 [facility] 15 Total 23 Note: | | Visits indicate total known visits. Care ProvidersProvider PRC Type Phone Fax Service | | Dates Fam Donnelly MD, Primary Care Current [facility] | | MENTAL HEALTH, Mental Health Provider Nov 15, 2016 - | | Current Summer PAULINA Norman Case or [employer] Current | | The above information is provided for the sole purpose of patient treatment. Use of this | | information beyond the terms of Data Sharing Memorandum of Understanding and License | | Agreement is prohibited. In certain cases not all visits may be represented. Consult the | | aforementioned facilities for additional information. ? 2017 [employer] | | [employer]. - [place], [place] - [email or web address] | | Nicotine dependence, cigarettes, uncomplicated | | Other stimulant dependence, uncomplicated | | | |Dec 30, 2016 [facility] [place]ie [place]. [place] Emergency Emergency | | catheter issues | | Urinary Catheter Insertion | | Other urethritis | | Retention of urine, unspecified | | Other stimulant abuse, uncomplicated | | | |[facility] 03[facility] [place] [facility] | | Bipolar disorder, unspecified | | Schizoaffective disorder, unspecified | | Other senior care (current) drug therapy | | Nicotine dependence, unspecified, uncomplicated | | Anxiety disorder, unspecified | | Allergy status to other antibiotic agents status | | Allergy status to other drugs, medicaments and biological substances status | | Other fatigue | | Delusional disorders | | Essential (primary) hypertension | | | |Nov 24, 2016 [facility] [place] Emergency Emergency | | Encounter for other general examination | | Allergy status to other drugs, medicaments and biological substances status | | Bipolar disorder, unspecified | | Other terminal make up operator (current) drug therapy | | Major depressive disorder, single episode, unspecified | | Essential (primary) hypertension | | | | | | | |Recent Inpatient Visit Summary | |No recorded inpatient visits. | | | |E.D. Visit Count (12 mo.) | |Facility Visits | |[facility] 2 | |[facility] 1 | |[facility] 1 | |[facility] 1 | |[facility] 2 | |[facility] ED 1 | |[facility] 15 | |Total 23 | |Note: Visits indicate total known visits. | | | |Care Providers | |Provider PRC Type Phone Fax Service Dates | |Fam Donnelly MD, MD Primary Care Current | |[facility] Mental Health Provider Nov 15, 2016 - Current | |PAULINA Orellana Case or [employer] Current | | | |The above information is provided for the sole purpose of patient treatment. Use of this in formation beyond the terms of Data Sharing Memorandum of Understanding and License Agreement is prohibited. In | |certain cases not all visits may be represented. Consult the aforementioned facilities for additional information. | |? 2017 [employer] - [place], [place] - | + + + + + + + | Performing | Address | City/State/Zipcode | Phone Number | | Organization | | | | + + + + + | [employer] | [address], | [place], [place] | [phone] | | [employer] | [address] | [address] | | + + + + + documented in this encounter Visit Diagnoses + + | Diagnosis | + + | Suprapubic abdominal pain - Primary Abdominal pain, other specified site | + + | Urinary tract infection associated with indwelling urethral catheter, initial | | encounter (HCC) | + + documented in this encounter Administered Medications + +--------+ +--------+------+------+ | Medication Order | MAR | Action | Dose | Rate | Site | | | Action | Date | | | | + +--------+ +--------+------+------+ | fentaNYL (SUBLIMAZE) injection | Given | 02/24/20 | 50 mcg | | | | 50 mcg 50 mcg, intravenous, | | 17 12:51 | | | | | ONCE, 1 dose, 02/23/17 at 0115 | | AM PDT | | | | + +--------+ +--------+------+------+ +---+---+ | | | +---+---+ + +-------+ +--------+---+---+ | phenazopyridine (PYRIDIUM) | Given | 02/24/20 | 100 mg | | | | tablet 100 mg 100 mg, oral, | | 17 12:51 | | | | | ONCE, 1 dose, 02/23/17 at 0115 | | AM PDT | | | | + +-------+ +--------+---+---+ +---+---+ | | | +---+---+ documented in this encounter
--- OUTSIDE RECORDS SUMMARY | ~2019-05-18 | XMS | Encounter Summary ---
Demographics + + + | Address | GENERAL DELIVERY | | | [place] [address] | + + + | Home Phone [...] Team Providers + +------+ + | Care Loading Dock Helper Name | Role | Phone | + [...] | abdominal | [address] | [address] | | | | | pain | [facility] | Ave | | | | | Neurogenic | Rd | [facility] [place] | | | | | bladder | [facility] [place] | [address] | | | | | Procedures | [address] | Phone: | | | | | CONSULT TO | Phone: | [phone] | | | | | UROLOGY | [phone] | Fax: | | | | | | Fax: | [phone] | | | | | | [phone] | | +--------+--------+ + + + + Reason for Visit + + + | Reason | Comments | + + + | Catheter Problem | | + + + Encounter Details +--------+ + + + + | Date | Type | Department | Care Team | Description | +--------+ + + + + | 02/22/ | Emergency | [facility] Emergency | Fe Walter, | | | 2017 - | | Department [address] | Edith Kelley MD [address] | | | | | [facility] | [facility] | | | 02/23/ | | [facility] | [address], [place] | | | 2017 | | [place] | [address] | | | | | [address] | | | | | | [phone] | | | +--------+ + + + [...] for coming to the Emergency Department at [facility] for your care. You were evaluated for [...] other well. -Be careful about taking other ylop-aov-wgvhvpa medicines, which may contain acetaminophen or ibuprofen and could lead to toxicity. -If you have liver disease, kidney disease or stomach ulcers, the standard doses of these m edicines may be too high for you. -We expect that your pain will improve over the next few days, and do not expect that you w ill need to continue these medicines assisted. You should talk to your primary care [...] your primary care doctor for follow-up and [facility]. Care delivered in the Emergency Department should not be considered as a substitute for [facility] care and/or specialist care for ongoing medical issues, and it is important that you fo llow up as described above. Thank you for letting us care for you at the [facility] Emergency Department today. Note: If you had [...] | [facility] | [address] | [place], [place] | | | [facility]SA POINT OF CARE | [address] | [address] | | | TESTS | | | [...] [facility] | [address] | [place] [address] | | | SERVICES, CORE | [address] [...] [facility] | [address] | [place] [address] | | | NANCY MAX | DAHIANA [...] + | DIAL - AIRPORT - | [address] | [place] [address] | | | [place] | | | | + + + [...] [facility] | [address] | [place] [address] | | | NANCY MAX | DAHIANA [...] | + + + + + | [facility] | [address] | [place] [address] | | | NANCY MAX | DAHIANA [...] | + + + + + | [facility] | [address] | [place] [address] | | | MANSOOR, NANCY | DAHIANA [...] | + + + + + | [facility] | [address] | [place] [address] | | | SERVICES, CORE | DAHIANA [...] [facility] | [address] | [place] [address] | | | SERVICES, CORE | DAHIANA [...] | + + + + + | [facility] | [address] [facility] | [place] [address] | | | SERVICES, | [address] | | | | TRANSFUSION MEDICINE | | | | + + + + + ED INFORMATION EXCHANGE (02/22/2017 8:33 PM PDT) + + | Specimen | + + | | + + + + + | Narrative | Performed At | + + + | [id number] This patient has registered at the | [facility] | | [facility] Emergency Department For more | MEDICAL | | information visit: | TECHNOLOGIES | | [email or web address] | | | [id number] ED Care Guidelines from [facility] Last | | | Updated: 12/03/16 2:35 PM Care Coordination: ENCOURAGE PATIENT | | | TO USE PCP FOR FOLLOW UP AND NON-EMERGENT PROBLEMS. GIVE PATIENT THIS | | | CENTER HOLE REAMER NAME AND NUMBER FOR HELP AND QUESTIONS. MARSHALL AMADOR ED | | | LOSS PREVENTION CONSULTANT [facility] [phone] These are guidelines | | | and the provider should exercise clinical judgment when providing | | | care. Care History Behavioral 12/03/16 12:00 AM [facility] | | | Hospital PT [facility] -- ATTN:IVONNE | | | [facility] Medical/Surgical 11/03/14 12:00 AM [facility] | | | Hospital Smoker Methamphetamine abuse Recent Emergency | | | Department Visit Summary Admit Date Facility City State Type Major | | | Type Diagnoses or Chief Complaint Feb 22, 2017 [facility] and | | | [facility] [place] Emergency Emergency 10,800. | | | Cath issue Feb 20, [address] [place] | | | Emergency Emergency dizzy Generalized Body Aches | | | Neuromuscular dysfunction of bladder, unspecified Feb 18, 2017 [facility] | | | [place] Emergency Emergency Other stimulant | | | abuse, uncomplicated Other assisted (current) drug therapy | | | Nicotine [...] unspecified Feb 16, 2017 | | | [facility] [place] Emergency Emergency Chief Complaint: | | | Urinary Problem Feb 03, 2017 [facility] | | | [place] Emergency Emergency Chief Complaint: URO MALE Jan | | | 2016 [facility] [place] Emergency | | | Emergency Bipolar disorder, unspecified Nicotine | | | dependence, cigarettes, uncomplicated Other stimulant | | | dependence, uncomplicated Dec 30, 2016 [facility] | | | [place] Emergency Emergency catheter issues Urinary | | | Catheter Insertion Other urethritis Retention of urine, | | | unspecified Other stimulant abuse, uncomplicated Dec 03, | | | 2016 [facility] [place] Emergency Emergency Bipolar | | | disorder, unspecified Schizoaffective disorder, unspecified | | | Other assisted (current) drug therapy Nicotine dependence, | | | unspecified, uncomplicated Anxiety disorder, unspecified | | | Allergy status to other antibiotic agents status Allergy status | | | to other drugs, medicaments and biological substances status | | | Other fatigue Delusional disorders Essential (primary) | | | hypertension Nov 24, 2016 [facility] [place] Emergency | | | Emergency Encounter for other general examination | | | Allergy status to other drugs, medicaments and biological substances | | | status Bipolar disorder, unspecified Other watermaster | | | (current) drug therapy Major depressive disorder, single | | | episode, unspecified Essential (primary) hypertension | | | Recent Inpatient Visit Summary No recorded inpatient visits. | | | E.D. Visit Count (12 mo.) Facility [address] [facility] | | | System 2 [facility] [place] 1 [facility] | | | Center 1 [facility] 1 [facility] | | | Center 2 [facility] ED 1 [facility] 15 | | | Total 23 Note: Visits indicate total known visits. Care | | | Providers Provider PRC Type Phone Fax Service Dates Fam Donnelly, | | | MD TORI Primary Care Current [facility] | | | MENTAL HEALTH, Mental Health Provider ([id number]) | | | [phone] Nov 15, 2016 - Current Summer PAULINA Norman Case or Care | | | Cephalometric Tracer Current The above | | | information is provided for the sole purpose of patient treatment. | | | Use of this information beyond the terms of Data Sharing Memorandum of | | | Understanding and License Agreement is prohibited. In certain cases | | | not all visits may be represented. Consult the aforementioned | | | facilities for additional information. 2017 [facility] | | | [employer] - [place], [place] - | | | [email or web address] | | + + + + + | Procedure Note | + + | Service Account, Rtf Results Inbound - 02/22/2017 8:34 PM PDT Formatting of this | | note might be different from the original.NIRANJAN?NOTIFICATION?02/22/2017 20:33?ROMERO, | | AALIYAH? patient has registered at the [facility] and [facility] | | [place] Emergency Department For more information visit: | | [email or web address] ED Care | | [facility]: 12/03/16 2:35 PM Care | | Coordination:ENCOURAGE PATIENT TO USE PCP FOR FOLLOW UP AND NON-EMERGENT PROBLEMS.GIVE | | PATIENT THIS CENTER HOLE REAMER NAME AND NUMBER FOR HELP AND QUESTIONS.MARSHALL AMADORED CASE | | SALES ACCOUNT LEADER [facility] [phone] are guidelines and the provider should | | exercise clinical judgment when providing care.Care HistoryBehavioral12/03/16 12:00 AM | | [facility] -- ATTN:? IVONNE | | CONKEYMedical/Surgical11/03/14 12:00 AM [facility] | | HospitalSmokerMethamphetamine abuseRecent Emergency Department Visit SummaryAdmit Date | | Facility City State Type Major Type Diagnoses or Chief Complaint Feb 22, 2017 [place] | | [facility] [place] Emergency Emergency 10,800. Cath issue Feb | | 2016 [place] Emergency Emergency dizzy Generalized | | Body Aches Neuromuscular dysfunction of bladder, unspecified Feb 18, [address] | | [place] Emergency Emergency Other stimulant abuse, uncomplicated | | Other assisted (current) drug therapy Nicotine dependence, unspecified, | [...] Complaint: Urinary Problem Sep | | 2016 [facility] [place] Emergency Emergency Chief | | Complaint: URO MALE Jan 25, 2017 [facility] [place] Emergency | | Emergency Bipolar disorder, unspecified Nicotine dependence, cigarettes, | | uncomplicated Other stimulant dependence, uncomplicated Dec 30, 2016 [facility] Michelle | | [place] Emergency Emergency catheter issues Urinary Catheter | | Insertion Other urethritis Retention of urine, unspecified Other stimulant | | abuse, uncomplicated Dec 03, 2016 [facility] [place] Emergency Emergency | | [...] hypertension Nov 24, 2016 [facility] | | [place] Emergency Emergency Encounter for other general examination | | Allergy status to other drugs, medicaments and biological substances status | | Bipolar disorder, unspecified Other watermaster (current) drug therapy Major | | depressive disorder, single episode, unspecified Essential (primary) hypertension | | Recent Inpatient Visit SummaryNo recorded inpatient visits. E.D. Visit Count (12 | | mo.)Facility Visits [facility] 2 [facility] | | [address] 1 [facility] 1 [facility] | | Medical [place] 2 [facility] ED 1 [facility] 15 Total 23 Note: | | Visits indicate total known visits. Care ProvidersProvider PRC Type Phone Fax Service | | Dates Fam Donnelly MD, Primary Care Current [facility] | | MENTAL HEALTH, Mental Health Provider Nov 15, 2016 - | | Current Summer PAULINA Norman Case or Exchange Operator Current | | The above information is provided for the sole purpose of patient treatment. Use of this | | information beyond the terms of Data Sharing Memorandum of Understanding and License | | Agreement is prohibited. In certain cases not all visits may be represented. Consult the | | aforementioned facilities for additional information. ? 2017 [facility] | | [employer] - [place], [place] - [email or web address] | | Nicotine dependence, cigarettes, uncomplicated | | Other stimulant dependence, uncomplicated | | | |Dec 30, 2016 [facility] [place] Emergency Emergency | | catheter issues | | Urinary Catheter Insertion | | Other urethritis | | Retention of urine, unspecified | | Other stimulant abuse, uncomplicated | | | |Dec 03, [address] [place] [place] [place] Emergency Emergency | | Bipolar disorder, unspecified | | Schizoaffective disorder, unspecified | | Other assisted (current) drug therapy | | Nicotine dependence, unspecified, uncomplicated | | Anxiety disorder, unspecified | | Allergy status to other antibiotic agents status | | Allergy status to other drugs, medicaments and biological substances status | | Other fatigue | | Delusional disorders | | Essential (primary) hypertension | | | |Nov 24, 2016 [facility] [place] Emergency Emergency | | Encounter for other general examination | | Allergy status to other drugs, medicaments and biological substances status | | Bipolar disorder, unspecified | | Other watermaster (current) drug therapy | | Major depressive disorder, single episode, unspecified | | Essential (primary) hypertension | | | | | | | |Recent Inpatient Visit Summary | |No recorded inpatient visits. | | | |E.D. Visit Count (12 mo.) | |Facility Visits | |[facility] 2 | |[facility] 1 | |[facility] 1 | |[facility] 1 | |[facility] 2 | |[facility] ED 1 | |[facility] 15 | |Total 23 | |Note: Visits indicate total known visits. | | | |Care Providers | |Provider PRC Type Phone Fax Service Dates | |Fam Donnelly MD, MD Primary Care Current | |[facility] Mental Health Provider Nov 15, 2016 - Current | |PAULINA Orellana Case or Exchange Operator Current | | | |The above information is provided for the sole purpose of patient treatment. Use of this in formation beyond the terms of Data Sharing Memorandum of Understanding and License Agreement is prohibited. In | |certain cases not all visits may be represented. Consult the aforementioned facilities for additional information. | |? 2017 [employer] - [place], [place] - [email or web address] | + + + + + + + | Performing | Address | City/State/Zipcode | Phone Number | | Organization | | | | + + + + + | [facility] | [address], | [place], [place] | [phone] | | TECHNOLOGIES | [address] | [address] | | + + + + + [...]
--- OUTSIDE RECORDS SUMMARY | ~2019-05-18 | XMS | Encounter Summary ---
Demographics + + + | Address | GENERAL DELIVERY | | | [place] [address] | + + + | Home Phone | | + + + | Preferred Language | Unknown | + + + | Marital Status | Single | + + + | Jewish Affiliation | NON | + + + | Race | White | + + + | Ethnic Group | Not or | + + + Author + + + | Author | [facility] | + + + | Organization | [facility] | + + + | Address | Unknown | + + + | Phone | Unavailable | + + + Support + + +---------+ + | Name | Relationship | Address | Phone | + + +---------+ + | Per None, PT | ECON | Unknown | Unavailable | + + +---------+ + Care Team Providers + +------+ + | Care Manufacturing Quality Manager Name | Role | Phone | + +------+ + PCP | Unavailable | + +------+ + Encounter Details +--------+ + + + + | Date | Type | Department | Care Team | Description | +--------+ + + + + | 06/14/ | Document-Sc | Digestive Health | Jeancarlos Marley MD | | | 2015 | anned | [place] [phone] | [address] | | | | | [address] | [place], [place] | | | | | Mailcode: OC8D | [address] | | | | | [facility] | [phone] | | | | | and Healing, | | | | | | [address] | | | | | | [place], [place] | | | | | | [address] | | | | | | [phone] | | | +--------+ + + + [...]
--- OUTSIDE RECORDS SUMMARY | ~2019-05-18 | XMS | Encounter Summary ---
Demographics + + + | Address | GENERAL DELIVERY | | | [place] [address] | + + + | Home Phone | | + + + | Preferred Language | Unknown | + + + | Marital Status | Single | + + + | Holiness Affiliation | NON | + + + [...] Team Providers + +------+ + | Care Weaver Hand Loom Name | Role | Phone | + +------+ + PCP | Unavailable | + +------+ + Reason for Visit + + + | Reason | Comments | + + + | Blood Test Results | Outside labs from [facility] 06/08/14. | + + + Encounter Details +--------+ + + + + | Date | Type | Department | Care Team | Description | +--------+ + + + + | 06/13/ | Documentati | Digestive Health | Jeancarlos Marley MD | Blood Test Results | | 2014 | on | Center at [facility] [address] | [address] | (Outside labs from | | | | [address] | [place], [place] | [facility] | | | | Mailcode: OC8D | [id number] | 06/08/14.) | | | | [facility] | [phone] | | | | | and Healing, | | | | | | [address] | | | | | | [place], [place] | | | | | | [address] | | | | | | [phone] | | | +--------+ + + + [...] + | HEPATITIS C | Routin | 06/07/2014 | | Results for this | | QUANTITATIVE, PLASMA | e | 6:12 PM | | procedure are in the | | | | PST | | results section. | + +--------+ + + + documented in this encounter Results HEPATITIS C QUANTITATIVE, PLASMA (06/07/2014 6:12 PM PST) + + + + + + | Component | Value | Ref Range | Performed | Pathologist | | | | | At | Signature | + + + + + + | HEP C PCR, | 1,700,000 (H) | IU/mL | NON [facility] | | | QUANT | | | LAB | | + + + + + + + + | Specimen | + + | Blood - Blood | + + + +---------+ + + | Performing | Address | City/State/Zipcode | Phone Number | | Organization | | | | + +---------+ + + | NON [facility] | | | | + +---------+ + + documented in this encounter Visit Diagnoses Not on filedocumented in this encounter"
--- OUTSIDE RECORDS SUMMARY | ~2019-05-18 | XMS | Encounter Summary ---
Demographics + + + | Address | GENERAL DELIVERY | | | [place] [address] | + + + | Home Phone | | + + + | Preferred Language | Unknown | + + + | Marital Status | Single | + + + | Scientology Affiliation | NON | + + + [...] Team Providers + +------+ + | Care Hospice Consultant Name | Role | Phone | + [...] | | | PROVIDER PER | [facility] [place] | | | | | | PT | for Health | | | | | | | and Healing, | | | | | | | [address], | | | | | | | 10th Floor | | | | | | | [place], [place] | | | | | | | [address] | | | | | | | Phone: | | | | | | | [phone] | | | | | | | Fax: | | | | | | | [phone] | +--------+--------+ + + + + Encounter [...] | | | | Mailcode: CH10U | [facility] [place] | | | | | [facility] | [address] | | | | | and Healing, | [phone] | | | | | [facility] | | | | | | Floor [place], [place] | | | | | | [address] | | | | | | [phone] | | | +--------+---------+ + + + [...] PDT12 days s/p open suprapubic cystostomy for calender wind up tender 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 Has had ER visits [...] out of wound for easy remov al/change [facility] present and packing reviewed. A/P: Wound [...]
--- OUTSIDE RECORDS SUMMARY | ~2019-05-18 | XMS | Encounter Summary ---
Demographics + + + | Address | [address] DELIVERY | | | [place] [address] | + + + | Home Phone [...] Team Providers + +------+ + | Care Forest Engineer Name | Role | Phone | [...] Mention of | | | | at [facility] 3rd Floor | | Hepatic Coma | | | | [address] | | | | | | [address] [place], [place] | | | | | | [address] | | | | | | [phone] | | | +--------+------+ + + + [...] | [facility] | [address] | [place] [address] | | | PATHOLOGY | [address] | | | + + + + + | [facility] | [address] | [place] [address] | | | PATHOLOGY | [address] [...] | [facility] | [address] | [place] [address] | | | PATHOLOGY | [address] | | | + + + + + | [facility] | [address] | [place] [address] | | | PATHOLOGY | [address] [...] | [facility] | [address] | [place] [address] | | | PATHOLOGY | [address] | | | + + + + + | [facility] | [address] | [place] [address] | | | PATHOLOGY | [address] [...] Performed At | + + + | [id number] Estimated GFR > 60 mL/min/1.73 sq m if non- | [facility] | | Uzbek [id number] Estimated GFR > 60 mL/min/1.73 sq m if | DEPARTMENT OF | | [place]bek GFR is estimated using the MDRD equation [...] | + + + + + | [facility] | [address] | [place] [address] | | | PATHOLOGY | [address] | | | + + + + + | [facility] | [address] | [place] [address] | | | PATHOLOGY | [address] | | | + + + + + documented in this encounter Visit Diagnoses + + | Diagnosis | + + | Chronic hepatitis C without mention of hepatic coma | + + documented in this encounter"
--- OUTSIDE RECORDS SUMMARY | ~2019-05-18 | XMS | Encounter Summary ---
Demographics + + + | Address | GENERAL DELIVERY | | | [place] [address] | + + + | Home Phone | | + + + | Preferred Language | Unknown | + + + | Marital Status | Single | + + + | Bahai Affiliation | NON | + + + | Race | White | + + + | Ethnic Group | Not or | + + + Author + + + | Author | [facility] | + + + | Organization | [facility] | + + + | Address | Unknown | + + + | Phone | Unavailable | + + + Support + + +---------+ + | Name | Relationship | Address | Phone | + + +---------+ + | Per None, PT | ECON | Unknown | Unavailable | + + +---------+ + Care Team Providers + +------+ + | Care Public Health Clinical Nurse Specialist Name | Role | Phone | + +------+ + | Etienne Barnes PA-C | PCP | | + +------+ + Encounter Details +--------+ + + + + | Date | Type | Department | Care Team | Description | +--------+ + + + + | 09/14/ | Document-Sc | UNKNOWN DEPARTMENT | Unknown . | | | 2014 | anned | [address] [facility] | | | | | | [address] | | | | | | [place], [place] | | | | | | [address] | | | +--------+ + + + [...]
--- OUTSIDE RECORDS SUMMARY | ~2019-05-18 | XMS | Encounter Summary ---
Demographics + + + | Address | GENER[address] DELIVERY | | | [place] [address] | + + + | Home Phone | | + + + | Preferred Language | Unknown | + + + | Marital Status | Single | + + + | Restorationist Affiliation | NON | + + + [...] Team Providers + +------+ + | Care Deputy Chief Sheriff Name | Role | Phone | + +------+ + PCP | Unavailable | + +------+ + Reason for Visit +--------+ + | Reason | Comments | +--------+ + | Pain | | +--------+ + Encounter Details +--------+ + + + + | Date | Type | Department | Care Team | Description | +--------+ + + + + | 06/19/ | Telephone | [facility] | Jeancarlos Marley MD | Pain | | 2014 | | [place] [address] [address] | [address] | | | | | [address] | [place], [place] | | | | | Mailcode: OC8D | [address] | | | | | [facility] | [phone] | | | | | and Healing, | | | | | | [address] | | | | | | [place], [place] | | | | | | [address] | | | | | | [phone] | | | +--------+ + + + [...]
--- OUTSIDE RECORDS SUMMARY | ~2019-05-18 | XMS | Encounter Summary ---
Demographics + + + | Address | [address] DEL[address]ERY | | | [place] [address] | + + + | Home Phone [...] Team Providers + +------+ + | Care Fiction And Nonfiction Prose Writer Name | Role | Phone | + [...] | | | | Mailcode: CH10U | [place], [place] | and counseling | | | | [facility] | [address] | | | | | and Healing, | [phone] | | | | | [facility] | | | | | | Floor [place], [place] | | | | | | [address] | | | | | | [phone] | | | +--------+ + + + [...]
--- OUTSIDE RECORDS SUMMARY | ~2019-05-18 | XMS | Encounter Summary ---
Demographics + + + | Address | [address]AL DELIVERY | | | [place] [address] | + + + | Home Phone | | + + + | Preferred Language | Unknown | + + + | Marital Status | Single | + + + | Taoism Affiliation | NON | + + + [...] Providers + +------+ + | Care Boat Outboard Engine Mechanic Name | Role | Phone | [...] | | | | | retention | [place] | [address] | | | | | Urinary | STATE | Ave | | | | | Retention | HOSPITAL | [place], [place] | | | | | Procedures | [address] | [address] | | | | | REQUEST TO | [address] | Phone: | | | | | SURGERY | [place] | [phone] | | | | | TEST HOLE DRILLER | [address] | Fax: | | | | | [place] | Phone: | [phone] | | | | | INCISE/DRAIN | [phone] | | | | | | BLADDER | Fax: | | | | | | suprapubic | [phone] | | | | | | cystostomy [...] | | | | | | | [address] | | | | | | | [address] | | | | | | | [place], [place] | | | | | | | [address] | +--------+--------+ + + + + Encounter [...] | | | | Mailcode: CH10U | [place], [place] | | | | | [facility] | [address] | | | | | and Healing, | [phone] | | | | | [facility] | | | | | | Floor [place], [place] | | | | | | [address] | | | | | | [phone] | | | +--------+ + + + [...] Armand Ordonez MD - 01/22/2011 12:51 PM [id number], former patient of Dr. Canchola, is an inpat ient at [facility] for at least 3 more years. He [...] | + +--------+ + + + | DE CYSTOURETHROSCOPY | Routin | 01/22/2011 | Urinary retention | Results for this | | | e | | | procedure are in the | | | | | | results section. | + +--------+ + + + documented in this encounter Results DE CYSTOURETHROSCOPY (01/22/2011) + + + | Narrative [...]
--- OUTSIDE RECORDS SUMMARY | ~2019-05-18 | XMS | Clinical Summary ---
Demographics + + + | Address | [address] | | | [place] [address] | + + + | Home Phone | | + + + | Preferred Language | Unknown | + + + | Marital Status | | + + + | Nondenominational Affiliation | Unknown | + + + | Race | Unknown | + + + | Ethnic Group | Unknown | + + + Author + + + | Author | [facility] (Historical as of | | | 01-01-19) | + + + | Organization | [facility] (Historical as of | | | 01-01-19) | + + + | Address | Unknown | + + + | Phone | Unavailable | + + + Support + + +---------+ + | Name | Relationship | Address | Phone | + + +---------+ + | No Detailed,Message | ECON | Unknown | | | No One Listed | | | | + + +---------+ + Care Team Providers + +------+ + | Care Dev Manager Name | Role | Phone | + +------+ + | Dr. Jazmin | PP | Unavailable | + +------+ + Allergies + + + + + + | Active Allergy | Reactions | Severity | Noted | Comments | | | | | Date | | + + + + + + | Povidone Iodine | Rash | Medium | 03/10/20 | | | | | | 15 | | + + + + + + Current Medications + + +---------+---------+------+------+-------+ | Prescription | Sig. | Disp. | Refills | Star | End | Statu | | | | | | t | Date | s | | | | | | Date | | | + + +---------+---------+------+------+-------+ | cephALEXin | Take 1 capsule by | 28 | 0 | 11/2 | | Activ | | (KEFLEX) 500 MG | mouth 4 (four) times | capsule | | 6/20 | | e | | capsule | daily. | | | 16 | | | + + +---------+---------+------+------+-------+ Active Problems No known active problems Social History + +-------+ +--------+------+ | Tobacco Use | Types | Packs/Day | Years | Date | | | | | Used | | + +-------+ +--------+------+ | Former Smoker | | | | | + +-------+ +--------+------+ + + +---------+ + | Alcohol Use | Drinks/We | oz/Week | Comments | | | ek | | | + + +---------+ + | Yes | | | | + + +---------+ + + + + | Sex Assigned at | Date Recorded | | | | + + + | Not on file | | + + + Last Filed Vital Signs + + + + | Vital Sign | Reading | Time Taken | + + + + | Blood Pressure | 141/84 | 04/12/2016 1:48 PM PST | + + + + | Pulse | 85 | 04/12/2016 1:48 PM PST | + + + + | Temperature | 36.6 C (97.8 F) | 04/12/2016 1:48 PM PST | + + + + | Respiratory Rate | 18 | 04/12/2016 1:48 PM PST | + + + + | Oxygen Saturation | 99% | 04/12/2016 1:48 PM PST | + + + + | Inhaled Oxygen | - | - | | Concentration | | | + + + + | Weight | 100 kg (220 lb 7.4 | 04/12/2016 10:53 AM PST | | | oz) | | + + + + | Height | 175.3 cm (5' 9") | 04/12/2016 10:53 AM PST | + + + + | Body Mass Index | 32.56 | 04/12/2016 10:53 AM PST | + + + + Plan of Treatment + + + + + | Health Maintenance | Due Date | Last Done | Comments | + + + + + | Vaccine: | | | | | Dtap/Tdap/Td (1 - | 9 | | | | Tdap) | | | | + + + + + | Vaccine: Influenza | | | | | (#1) | 9 | | | + + + + + Results Not on filefrom Last 3 Months
--- OUTSIDE RECORDS SUMMARY | ~2019-05-18 | XMS | Encounter Summary ---
Demographics + + + | Address | [address] | | | [place] [address] | + + + | Home Phone | | + + + | Preferred Language | Unknown | + + + | Marital Status | Single | + + + | Presybeterian Affiliation | NON | + + + | Race | White | + + + | Ethnic Group | Not or | + + + Author + + + | Author | [facility] | + + + | Organization | [facility] | + + + | Address | Unknown | + + + | Phone | Unavailable | + + + Support + + +---------+ + | Name | Relationship | Address | Phone | + + +---------+ + | Per None, PT | ECON | Unknown | Unavailable | + + +---------+ + Care Team Providers + +------+ + | Care Mural Artist Name | Role | Phone | [...] Lab Order | | 2014 | | [place] at [facility] [address] | [address] | | | | | [address] | [facility] [place] | | | | | Mailcode: OC8D | [address] | | | | | [facility] | [phone] | | | | | and Healing, | | | | | | [address] | | | | | | [place], [place] | | | | | | [address] | | | | | | [phone] | | | +--------+ + + + [...]
--- OUTSIDE RECORDS SUMMARY | ~2019-05-18 | XMS | Encounter Summary ---
Demographics + + + | Address | [address] | | | [place] [address] | + + + | Home Phone | | + + + | Preferred Language | Unknown | + + + | Marital Status | Single | + + + | Taoist Affiliation | NON | + + + | Race | White | + + + | Ethnic Group | Not or | + + + Author + + + | Author | [facility] | + + + | Organization | [facility] | + + + | Address | Unknown | + + + | Phone | Unavailable | + + + Support + + +---------+ + | Name | Relationship | Address | Phone | + + +---------+ + | Per None, PT | ECON | Unknown | Unavailable | + + +---------+ + Care Team Providers + +------+ + | Care Family Centered Specialist Name | Role | Phone | + +------+ + | Etienne Barnes PA-C | PCP | | + +------+ + Encounter Details +--------+ + + + + | Date | Type | Department | Care Team | Description | +--------+ + + + + | 06/15/ | Document-Sc | UNKNOWN DEPARTMENT | Unknown . | | | 2014 | anned | [address] [facility] | | | | | | [address] | | | | | | [place], [place] | | | | | | [address] | | | +--------+ + + + [...]
--- OUTSIDE RECORDS SUMMARY | ~2019-05-18 | XMS | Encounter Summary ---
Demographics + + + | Address | [address] | | | [place] [address] | + + + | Home Phone [...] Team Providers + +------+ + | Care Commercial Cleaner Name | Role | Phone | + +------+ + | [place]ha [place] | PCP | | + +------+ + Encounter Details +--------+ + + + + | Date | Type | Department | Care Team | Description | +--------+ + + + + | 08/11/ | Telephone | Digestive Health | Jeancarlos Marley MD | | | 2008 | | [facility] at [facility] [address] | [address] | | | | | [address] | [place], [place] | | | | | Mailcode: Center | [address] | | | | | for Health and | [phone] | | | | | [facility] [address] | | | | | | [place], [place] | | | | | | [address] | | | | | | [phone] | | | +--------+ + + + [...] | + + + + + | [facility] | [address] | [place] [address] | | | PATHOLOGY | [address] | | | + + + + + | [facility] | [address] | [place] [address] | | | PATHOLOGY | [address] [...] | + + + + + | [facility] | [address] | [place] [address] | | | PATHOLOGY | [address] | | | + + + + + | [facility] | [address] | [place] [address] | | | PATHOLOGY | [address] [...] Performed At | + + + | [id number] Estimated GFR > 60 mL/min/1.73 sq m if non- | [facility] | | [place] [id number] Estimated GFR > 60 mL/min/1.73 sq m if | DEPARTMENT OF | | [place] GFR is estimated using the MDRD equation [...] | + + + + + | [facility] DEPARTMENT | [address] | [place] [address] | | | PATHOLOGY | [address] | | | + + + + + | [facility] | [address] | [place] [address] | | | PATHOLOGY | [address] | | | + + + + + documented in this encounter Visit Diagnoses + + | Diagnosis | + + | Chronic hepatitis C without mention of hepatic coma - Primary | + + documented in this encounter"
--- OUTSIDE RECORDS SUMMARY | ~2019-05-18 | XMS | Encounter Summary ---
Demographics + + + | Address | [address] | | | [place] [address] | + + + | Home Phone [...] + + + | Author | [facility] | + + + | Organization | [facility] | + + + | Address | Unknown | + + + | Phone | Unavailable | + + + Support + + +---------+ + | Name | Relationship | Address | Phone | + + +---------+ + | Per None, PT | ECON | Unknown | Unavailable | + + +---------+ + Care Team Providers + +------+ + | Care Oil Spreader Operator Name | Role | Phone | [...] Abdominal pain | | 2008 | | [place] [address] [address] | [address] | | | | | [address] | [place], [place] | | | | | Mailcode: OC8D | [address] | | | | | [facility] | [phone] | | | | | and [place], | | | | | | [address] | | | | | | [place], [place] | | | | | | [address] | | | | | | [phone] | | | +--------+ + + + [...]
--- OUTSIDE RECORDS SUMMARY | ~2019-05-18 | XMS | Encounter Summary ---
Demographics + + + | Address | [address] | | | [place] [address] | + + + | Home Phone [...] Team Providers + +------+ + | Care Philosophy Specialist Name | Role | Phone | [...] | | | | Mailcode: CH10U | [place], [place] | | | | | [facility] | [address] | | | | | and Healing, | [phone] | | | | | Building | | | | | | Floor [place], [place] | | | | | | [address] | | | | | | [phone] | | | +--------+ + + + [...]
--- OUTSIDE RECORDS SUMMARY | ~2019-05-18 | XMS | Encounter Summary ---
Demographics + + + | Address | [address] | | | [place] [address] | + + + | Home Phone | | + + + | Preferred Language | Unknown | + + + | Marital Status | Single | + + + | Roman Catholic Affiliation | NON | + + [...] Providers + +------+ + | Care Machine Strap Buckler Name | Role | Phone | + [...] Abdominal pain | | 2007 | | [place] [address] [address] | [address] | (liver pain) | | | | [address] | [place], [place] | | | | | Mailcode: OC8D | [address] | | | | | [place] [facility] | [phone] | | | | | and Healing, | | | | | | [address] | | | | | | [place], [place] | | | | | | [address] | | | | | | [phone] | | | +--------+ + + + [...] [facility] DEPARTMENT OF | [address] | [facility] [place] [address] | | | PATHOLOGY | [address] | | | + + + + + | [facility] DEPARTMENT OF | [address] | [place] [address] | | | PATHOLOGY | [address] [...] + + + + + | [facility] | [address] | [place] [address] | | | PATHOLOGY | [address] | | | + + + + + | [facility] | [address] | [place] [address] | | | PATHOLOGY | [address] [...] Performed At | + + + | [id number] Estimated GFR > 60 mL/min/1.73 sq m if non- | [facility] | | [place] [id number] Estimated GFR > 60 mL/min/1.73 sq m if | DEPARTMENT OF | | [place] GFR is estimated using the MDRD equation [...] + + + + + | [facility] | [address] | [place] [address] | | | PATHOLOGY | [address] | | | + + + + + | [facility] | [address] | [place] [address] | | | PATHOLOGY | [address] [...] spleen | | | | | | [id number] cm in | | | | | [...] | | + +---------+ + + | [facility] DEPARTMENT OF | | | | | [...]
--- OUTSIDE RECORDS SUMMARY | ~2019-05-18 | XMS | Encounter Summary ---
Demographics + + + | Address | [address] | | | [place] [address] | + + + | Home Phone | | + + + | Preferred Language | Unknown | + + + | Marital Status | Single | + + + | Voodoo Affiliation | NON | + + + [...] Team Providers + +------+ + | Care Hair Or Beauty Salon Assistant Name | Role | Phone | [...] PPV | | | | | | [address] | | | | | | Loop Mailcode: | | | | | | [address] Physician's | | | | | | [facility] | | | | | | [place] [address] | | | | | | [phone] | | | +--------+ + + + [...] | | + +---------+ + + | [facility] DEPARTMENT | | | | | RADIOLOGY | | | | + +---------+ + + documented in this encounter Visit Diagnoses Not on filedocumented in this encounter"
--- OUTSIDE RECORDS SUMMARY | ~2019-05-18 | XMS | Encounter Summary ---
Demographics + + + | Address | [address] | | | [place] [address] | + + + | Home Phone | | + + + | Preferred Language | Unknown | + + + | Marital Status | Single | + + + | Evangelical Affiliation | NON | + + + | Race | White | + + + | Ethnic Group | Not or | + + + Author + + + | Author | [facility] | + + + | Organization | [facility] | + + + | Address | Unknown | + + + | Phone | Unavailable | + + + Support + + +---------+ + | Name | Relationship | Address | Phone | + + +---------+ + | Per None, PT | ECON | Unknown | Unavailable | + + +---------+ + Care Team Providers + +------+ + | Care Wire Winder Name | Role | Phone | [...] PPV | | | | | | [address] | | | | | | Loop Mailcode: | | | | | | [address] Physician's | | | | | | [facility] | | | | | | [place] [address] | | | | | | [phone] | | | +--------+ + + + [...] | | + +---------+ + + | [facility] DEPARTMENT | | | | | RADIOLOGY | | | | + +---------+ + + documented in this encounter Visit Diagnoses Not on filedocumented in this encounter"
--- OUTSIDE RECORDS SUMMARY | ~2019-05-18 | XMS | Encounter Summary ---
Demographics + + + | Address | [address] | | | [place] [address] | + + + | Home Phone [...] Team Providers + +------+ + | Care Wool Hat Hydraulicker Name | Role | Phone | + [...] Phone communication | | 2009 | | [address] | | | | | | Mailcode: CH10U | | | | | | [facility] | | | | | | and Healing, | | | | | | Building , [address]th | | | | | | Floor [place], [place] | | | | | | [address] | | | | | | [phone] | | | +--------+ + + + [...]
--- OUTSIDE RECORDS SUMMARY | ~2019-05-18 | XMS | Encounter Summary ---
Demographics + + + | Address | [address] | | | [place] [address] | + + + | Home Phone [...] Team Providers + +------+ + | Care Pasteuriser Operator Name | Role | Phone | [...] | | | | Mailcode: CH10U | [place], [place] | | | | | [facility] | [address] | | | | | and Healing, | [phone] | | | | | Building | | | | | | Floor [place], [place] | | | | | | [address] | | | | | | [phone] | | | +--------+ + + + [...]
--- OUTSIDE RECORDS SUMMARY | ~2019-05-18 | XMS | Encounter Summary ---
Demographics + + + | Address | [address] | | | [place] [address] | + + + | Home Phone [...] Team Providers + +------+ + | Care Professor Of Philosophy Name | Role | Phone | + [...] abd u/s | | 2007 | | [place] at [facility] [address] | [address] | order faxed/mailed) | | | | [address] | [place], [place] | | | | | Mailcode: [id number] | [address] | | | | | [facility] | [phone] | | | | | and [place], | | | | | | [address] | | | | | | [place], [place] | | | | | | [address] | | | | | | [phone] | | | +--------+ + + + [...]
--- OUTSIDE RECORDS SUMMARY | ~2019-05-18 | XMS | Encounter Summary ---
Demographics + + + | Address | [address]ERY | | | [place] [address] | + + + | Home Phone [...] Providers + +------+ + | Care Engine Lathe Operator Name | Role | Phone | + +------+ + | Lakesha River | PCP | | + +------+ + Encounter Details +--------+ + + + + | Date | Type | Department | Care Team | Description | +--------+ + + + + | 02/27/ | Telephone | [facility] | Jeancarlos Marley MD | | | 2007 | | [place] [address] [address] | [address] | | | | | [address] | [place], [place] | | | | | Mailcode: OC8D | [address] | | | | | [facility] | [phone] | | | | | and Healing, | | | | | | [address] | | | | | | [place], [place] | | | | | | [address] | | | | | | [phone] | | | +--------+ + + + [...]
--- OUTSIDE RECORDS SUMMARY | ~2019-05-18 | XMS | Encounter Summary ---
Demographics + + + | Address | [address]ERY | | | [place] [address] | + + + | Home Phone [...] Providers + +------+ + | Care Manager Mountain Name | Role | Phone | + [...] Hepatitis C | | 2007 | | [place] [address] [address] | [address] | without Mention of | | | | [address] | [place], [place] | Hepatic Coma | | | | Mailcode: OC8D | [address] | (Primary Dx) | | | | [place] [facility] | [phone] | | | | | and Healing, | | | | | | [address] | | | | | | [place], [place] | | | | | | [address] | | | | | | [phone] | | | +--------+ + + + [...] Performed At | + + + | [id number] Estimated GFR > 60 mL/min/1.73 sq m if non- | [facility] | | [id number] Estimated GFR > 60 mL/min/1.73 sq m [...] + + + + | [facility] DEPARTMENT | [address] | [place] [address] | | | PATHOLOGY | [address] | | | + + + + + | [facility] | [address] [facility] [address] | [place] [address] | | | PATHOLOGY | [address] [...] + + + + | [facility] DEPARTMENT OF | [address] | [place] [address] | | | PATHOLOGY | [address] | | | + + + + + | [facility] OF | [facility] [address] | [place] [address] | | | PATHOLOGY | [address] [...] DEPARTMENT OF | [address] | [place] [address] | | | PATHOLOGY | [address] | | | + + + + + | [facility] DEPARTMENT OF | [address] | [place] [address] | | | PATHOLOGY | [address] [...] + + + | [facility] | [address] | [place] [address] | | | PATHOLOGY | [address] | | | + + + + + | [facility] | [address] | [place] [address] | | | PATHOLOGY | [address] [...] + + + | [facility] | [address] | [place] [address] | | | PATHOLOGY | [address] | | | + + + + + | [facility] | [address] | [place] [address] | | | PATHOLOGY | [address] [...] by | | | | | | [facility] | | | | | | HarQen. | | | | + + + + + + + + | Specimen | + + | | + + + + + + + | Performing | Address | City/State/Zipcode | Phone Number | | Organization | | | | + + + + + | [facility] | [address] | [place] [address] | | | LABORATORY | | | [...] + + | Test performed by [facility]. | | + + + + + + + + | Performing | Address | City/State/Zipcode | Phone Number | | Organization | | | | + + + + + | [facility] | [address] | [place] [address] | | | LABORATORY | | | [...] effective 03/08/07 | | | [facility] ([facility] | | | [address] [place], [place] | | | [address] | | + + + + + + + + | Performing | Address | City/State/Zipcode | Phone Number | | Organization | | | | + + + + + | [facility] | [address] | [place] [address] | | | LABORATORY | | | [...] Iron and TIBC, Serum Test performed by [facility] | | | [facility]. | | + + + + + + + + | Performing | Address | City/State/Zipcode | Phone Number | | Organization | | | | + + + + + | [facility] | [address] | [place] [address] | | | LABORATORY | | | [...] | | | | | determined bythe [facility] | | | | | [...] | | | | | Improvement Act [id number]. | | | | | | [facility] | | | | | | Laboratory is a fully | | | | | | licensed and/ | | | | | | oraccredited clinical | | | | | | laboratory under CLIA, | | | | | | [place], and the State of | | | | | | [place]. | | | | + + + + + + + + | Specimen | + + | | + + + + + + + | Performing | Address | City/State/Zipcode | Phone Number | | Organization | | | | + + + + + | [facility] | [employer] | [place] [address] | | | [facility] | [address] | | | | | [place]. | | | + + + + + documented in this encounter Visit Diagnoses + + | Diagnosis | + + | Chronic hepatitis C without mention of hepatic coma - Primary | + + documented in this encounter
--- OUTSIDE RECORDS SUMMARY | ~2019-05-18 | XMS | Encounter Summary ---
Demographics + + + | Address | [address]AL DELIVERY | | | [place] [address] | + + + | Home Phone [...] Team Providers + +------+ + | Care Health Facilities Surveyor Name | Role | Phone | + [...] Lab Order | | 2014 | | [place] at [facility] [address] | [address] | | | | | [address] | [facility] [place] | | | | | Mailcode: OC8D | [address] | | | | | [facility] | [phone] | | | | | and Healing, | | | | | | [address] | | | | | | [place], [place] | | | | | | [address] | | | | | | [phone] | | | +--------+ + + + [...]
--- OUTSIDE RECORDS SUMMARY | ~2019-05-18 | XMS | Encounter Summary ---
Demographics + + + | Address | [address]AL DELIVERY | | | [place] [address] | + + + | Home Phone [...] Team Providers + +------+ + | Care Psychological Examiner Name | Role | Phone | [...] | | | PROVIDER PER | CH10U [place] | | | | | | PT | for Health | | | | | | | and Healing, | | | | | | | [address], | | | | | | | 10th Floor | | | | | | | [place], [place] | | | | | | | [address] | | | | | | | Phone: | | | | | | | [phone] | | | | | | | Fax: | | | | | | | [phone] | +--------+--------+ + + + + Encounter [...] | | | | Mailcode: CH10U | [facility] [place] | | | | | [facility] | [address] | | | | | and Healing, | [phone] | | | | | [facility] | | | | | | Floor [place], [place] | | | | | | [address] | | | | | | [phone] | | | +--------+---------+ + + + [...] PDT12 days 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 Has had ER visits [...] out of wound for easy remov al/change [facility] present and packing reviewed. A/P: Wound [...]
--- OUTSIDE RECORDS SUMMARY | ~2019-05-18 | XMS | Encounter Summary ---
Demographics + + + | Address | GENERAL DELIVERY | | | [place] [address] | + + + | Home Phone [...] Team Providers + +------+ + | Care Configuration Specialist Name | Role | Phone | [...] | | | | Mailcode: CH10U | [place], [place] | | | | | [facility] | [address] | | | | | and [place], | [phone] | | | | | [facility] | | | | | | Floor [place], [place] | | | | | | [address] | | | | | | [phone] | | | +--------+ + + + [...]
--- OUTSIDE RECORDS SUMMARY | ~2019-05-18 | XMS | Encounter Summary ---
Demographics + + + | Address | GENERAL DELIVERY | | | [place] [address] | + + + | Home Phone [...] Team Providers + +------+ + | Care Wwe Wrestler Name | Role | Phone | + +------+ + PCP | Unavailable | + +------+ + Reason for Visit +--------+ + | Reason | Comments | +--------+ + | Pain | | +--------+ + Encounter Details +--------+ + + + + | Date | Type | Department | Care Team | Description | +--------+ + + + + | 06/13/ | Telephone | [facility] | Jeancarlos Marley MD | Pain | | 2014 | | [place] [address] [address] | [address] | | | | | [address] | [place], [place] | | | | | Mailcode: OC8D | [address] | | | | | [facility] | [phone] | | | | | and Healing, | | | | | | [address] | | | | | | [place], [place] | | | | | | [address] | | | | | | [phone] | | | +--------+ + + + [...]
--- OUTSIDE RECORDS SUMMARY | ~2019-05-18 | XMS | Encounter Summary ---
Demographics + + + | Address | GENERAL DELIVERY | | | [place] [address] | + + + | Home Phone [...] Team Providers + +------+ + | Care Chief Of Safety And Protection Name | Role | Phone | + +------+ + | [place] | PCP | | + +------+ + Encounter Details +--------+------+ + + + | Date | Type | Department | Care Team | Description | +--------+------+ + + + | 02/27/ | Lab | Laboratory at [facility] | | Chronic Hepatitis C | | 2007 | | [address] | | without Mention of | | | | [place], [place] | | Hepatic Coma | | | | [address] | | | | | | [phone] | | | +--------+------+ + + + [...] + + documented in this encounter Results [facility] - INR (PROTHROMBINTIME) (02/28/2008 9:24 [...] [facility] DEPARTMENT OF | [address] | [place] [address] | | | PATHOLOGY | [address] | | | + + + + + | [facility] DEPARTMENT OF | [address] | [place] [address] | | | PATHOLOGY | [address] [...] + | [facility] DEPARTMENT | [address] | [place] [address] | | | PATHOLOGY | [address] | | | + + + + + | [facility] | [address] | [place] [address] | | | PATHOLOGY | [address] | | | + + + + + [facility] - COMPLETE METABOLIC SET (02/28/2008 [...] DEPARTMENT OF | [address] | [place] [address] | | | PATHOLOGY | [address] | | | + + + + + | [place] DEPARTMENT OF | [address] | [place] [address] | | | PATHOLOGY | [address] | | | + + + + + documented in this encounter Visit Diagnoses + + | Diagnosis | + + | Chronic hepatitis C without mention of hepatic coma | + + documented in this encounter"
--- OUTSIDE RECORDS SUMMARY | ~2019-05-18 | XMS | Encounter Summary ---
Demographics + + + | Address | GENERAL DELIVERY | | | [place] [address] | + + + | Home Phone [...] Team Providers + +------+ + | Care Paper Mill Manager Name | Role | Phone | [...] Required | | hepatitis C | [address] | [address] [facility] | | | | | without | [address] | Ave | | | | | mention of | Jonn [place]uns[place], | [place], [place] | | | | | hepatic coma | [place] [address] | [address] | | | | | Procedures | Phone: | Phone: | | | | | CONSULT TO | [phone] | [phone] | | | | | HEPATOLOGY | Fax: | Fax: | | | | | | [phone] | [phone] | +--------+ + + + + + Encounter Details +--------+---------+ + + + | Date | Type | Department | Care Team | Description | +--------+---------+ + + + | 06/16/ | Office | Digestive Health | Jeancarlos Marley MD | Chronic Hepatitis C | | 2007 | Visit | Center at [facility] [address] | [address] | without Mention of | | | | [address] | [place], [place] | Hepatic Coma | | | | Mailcode: OC8D | [address] | (Primary Dx) | | | | [place] [facility] | [phone] | | | | | and Healing, | | | | | | [address] | | | | | | [place], [place] | | | | | | [address] | | | | | | [phone] | | | +--------+---------+ + + + [...] + + | Performing | Address | City/State/[facility]code | Phone Number | [...] | | | | | determined bythe [facility] | | | | | | [...] | | | | | Improvement Act [id number]. | | | | | | The [facility] | | | | | | Laboratory is a fully | | | | | | licensed and/ | | | | | | oraccredited clinical | | | | | | laboratory under CLIA, | | | | | | [place], and the State of | | | | | | [place]. | | | | + + + + + + + + | Specimen | + + | | + + + + + + + | Performing | Address | City/State/Zipcode | Phone Number | | Organization | | | | + + + + + | [facility] | [facility] | [place] [address] | | | GENETICS LABS | [address] | | | | | AVE. [...] Iron and TIBC, Serum Test performed by [facility] | | | [facility]. | | + + + + + + + + | Performing | Address | City/State/Zipcode | Phone Number | | Organization | | | | + + + + + | [facility] | [address] | [place] [address] | | | LABORATORY | | | [...] | | | R[facility] ([address] [facility]) [facility] | | | [address], [place] | | | [address] | | + + + + + + + + | Performing | Address | City/State/Zipcode | Phone Number | | Organization | | | | + + + + + | [facility] | [address] | [place] [address] | | | LABORATORY | | | [...] + + + | Test performed by [facility]. | | + + + + + + + + | Performing | Address | City/State/Zipcode | Phone Number | | Organization | | | | + + + + + | [facility] | [address] | [place] [address] | | | LABORATORY | | | [...] by | | | | | | [facility] | | | | | | [facility]. | | | | + + + + + + + + | Specimen | + + | | + + + + + + + | Performing | Address | City/State/Zipcode | Phone Number | | Organization | | | | + + + + + | [facility] | [address] | [place] [address] | | | LABORATORY | | | [...] + | [facility] DEPARTMENT OF | [address] [facility] | [place] [address] | | | PATHOLOGY | [address] | | | + + + + + | [facility] DEPARTMENT OF | [address] [facility] | [place] [address] | | | PATHOLOGY | [address] [...] | + + + + + | [facility] DEPARTMENT OF | [facility] | [place] [address] | | | PATHOLOGY | [address] | | | + + + + + | [facility] DEPARTMENT OF | [address] | [place] [address] | | | PATHOLOGY | [address] | | | + + + + + documented in this encounter Visit Diagnoses + + | Diagnosis | + + | Chronic hepatitis C without mention of hepatic coma - Primary | + + documented in this encounter
--- OUTSIDE RECORDS SUMMARY | ~2019-05-18 | XMS | Encounter Summary ---
Demographics + + + | Address | GENERAL DELIVERY | | | [place] [address] | + + + | Home Phone [...] Team Providers + +------+ + | Care Food Truck Caterer Name | Role | Phone | + [...] Required | | hepatitis C | [address] | [address] [facility] | | | | | without | [address] | Ave | | | | | mention of | [place]n [place]uns[place], | [place], [place] | | | | | hepatic coma | [place] [address] | [address] | | | | | Procedures | Phone: | Phone: | | | | | CONSULT TO | [phone] | [phone] | | | | | HEPATOLOGY | Fax: | Fax: | | | | | | [phone] | [phone] | +--------+ + + + + + Encounter Details +--------+---------+ + + + | Date | Type | Department | Care Team | Description | +--------+---------+ + + + | 06/16/ | Office | Digestive Health | Jeancarlos Marley MD | Chronic Hepatitis C | | 2007 | Visit | Center at [facility] [address] | [address] | without Mention of | | | | [address] | [place], [place] | Hepatic Coma | | | | Mailcode: OC8D | [address] | (Primary Dx) | | | | [place] [facility] | [phone] | | | | | and Healing, | | | | | | [address] | | | | | | [place], [place] | | | | | | [address] | | | | | | [phone] | | | +--------+---------+ + + + [...] + + | Performing | Address | City/State/[facility] Cent[facility]ode | Phone Number | | Organization [...] | | | | | determined bythe [facility] | | | | | | [...] | | | | | Improvement Act [id number]. | | | | | | The [...] + + + + | [facility] | [facility] | [place] [address] | | | GENETICS LABS | [address] | | | | | AVE. [...] Iron and TIBC, Serum Test performed by [facility] | | | [facility]. | | + + + + + + + + | Performing | Address | City/State/Zipcode | Phone Number | | Organization | | | | + + + + + | [facility] | [address] | [place] [address] | | | LABORATORY | | | [...] | | | RLB ([address] [facility]) [facility] | | | [address] [place], [place] | | | [address] | | + + + + + + + + | Performing | Address | City/State/Zipcode | Phone Number | | Organization | | | | + + + + + | [facility] | [address] | [place] [address] | | | LABORATORY | | | [...] + + + | Test performed by [facility]. | | + + + + + + + + | Performing | Address | City/State/Zipcode | Phone Number | | Organization | | | | + + + + + | [facility] | [address] | [place] [address] | | | LABORATORY | | | [...] by | | | | | | [facility] | | | | | | [facility]. | | | | + + + + + + + + | Specimen | + + | | + + + + + + + | Performing | Address | City/State/Zipcode | Phone Number | | Organization | | | | + + + + + | [facility] | [address] | [place] [address] | | | LABORATORY | | | [...] [facility] DE[facility]MENT [facility] | [address] [facility] | [place] [address] | | | PATHOLOGY | [address] | | | + + + + + | [facility] DEPARTMENT OF | [address] [facility] | [place] [address] | | | PATHOLOGY | [address] [...] + | [facility] DEPARTMENT OF | [facility] | [place] [address] | | | PATHOLOGY | [address] | | | + + + + + | [facility] DEPARTMENT OF | [address] | [place] [address] | | | PATHOLOGY | [address] | | | + + + + + documented in this encounter Visit Diagnoses + + | Diagnosis | + + | Chronic hepatitis C without mention of hepatic coma - Primary | + + documented in this encounter
--- OUTSIDE RECORDS SUMMARY | ~2019-05-18 | XMS | Encounter Summary ---
Demographics + + + | Address | GENERAL DELIVERY | | | [place] [address] | + + + | Home Phone [...] Team Providers + +------+ + | Care Purchase Order Checker Name | Role | Phone | + [...] | | | | | retention | [place] | [address] | | | | | Urinary | STATE | Ave | | | | | Retention | HOSPITAL | [place], [place] | | | | | Procedures | [address] | [address] | | | | | REQUEST TO | [address] | Phone: | | | | | SURGERY | [place] | [phone] | | | | | RING FACER | [address] | Fax: | | | | | ID | Phone: | [phone] | | | | | INCISE/DRAIN | [phone] | | | | | | BLADDER | Fax: | | | | | | suprapubic | [phone] | | | | | | cystostomy [...] | | | | | | | [address] | | | | | | | [address] | | | | | | | [place], [place] | | | | | | | [address] | +--------+--------+ + + + + Encounter [...] | | | | Mailcode: CH10U | [place], [place] | | | | | [facility] | [address] | | | | | and Healing, | [phone] | | | | | [facility] | | | | | | Floor [place], [place] | | | | | | [address] | | | | | | [phone] | | | +--------+ + + + [...] Armand Ordonez MD - 01/22/2011 12:51 PM [id number], former patient of Dr. Canchola, is an inpat ient at [facility] for at least 3 more years. He [...] | + +--------+ + + + | ID CYSTOURETHROSCOPY | Routin | 01/22/2011 | Urinary retention | Results for this | | | e | | | procedure are in the | | | | | | results section. | + +--------+ + + + documented in this encounter Results ID CYSTOURETHROSCOPY (01/22/2011) + + + | Narrative [...]
--- OUTSIDE RECORDS SUMMARY | ~2019-05-18 | XMS | Encounter Summary ---
Demographics + + + | Address | GENERAL DELIVERY | | | [place] [address] | + + + | Home Phone [...] Team Providers + +------+ + | Care Sueding Machine Operator Name | Role | Phone [...] Phone communication | | 2009 | | [address] | | | | | | Mailcode: CH10U | | | | | | [facility] | | | | | | and Healing, | | | | | | Building , [address]th | | | | | | Floor [place], [place] | | | | | | [address] | | | | | | [phone] | | | +--------+ + + + [...]
--- OUTSIDE RECORDS SUMMARY | ~2019-05-18 | XMS | Encounter Summary ---
Demographics + + + | Address | GENERAL DELIVERY | | | [place] [address] | + + + | Home Phone [...] Team Providers + +------+ + | Care Ceramic Research Engineer Name | Role | Phone | [...] Required | | hepatitis C | [address] | [address] | | | | | without | [address] | Ave | | | | | mention of | [place]n [place], | [place], [place] | | | | | hepatic coma | [place] [address] | [address] | | | | | Procedures | Phone: | Phone: | | | | | CONSULT TO | [phone] | [phone] | | | | | HEPATOLOGY | Fax: | Fax: | | | | | | [phone] | [phone] | +--------+ + + + + + Encounter Details +--------+---------+ + + + | Date | Type | Department | Care Team | Description | +--------+---------+ + + + | 02/27/ | Office | Digestive Health | Jeancarlos Rich MD | Chronic Hepatitis C | | 2007 | Visit | Center at [facility] [address] | [address] | without Mention of | | | | [address] | [place], [place] | Hepatic Coma | | | | Mailcode: OC8D | [address] | (Primary Dx) | | | | [place] [facility] | [phone] | | | | | and Healing, | | | | | | [address] | | | | | | [place], [place] | | | | | | [address] | | | | | | [phone] | | | +--------+---------+ + + + [...] on filedocumented as of this encounter Results [facility] - INR (PROTHROMBINTIME) (02/28/2008 9:24 AM PDT) [...] + + | [facility] | [address] | [place] [address] | | | PATHOLOGY | [address] | | | + + + + + | [facility] | [address] [place] [address] | [place] [address] | | | PATHOLOGY | [address] [...] + + | [facility] | [address] | [place] [address] | | | PATHOLOGY | [address] | | | + + + + + | [facility] | [address] [place] [address] | [place] [address] | | | PATHOLOGY | [address] [...] DEPARTMENT OF | [address] | [place] [address] | | | PATHOLOGY | [address] | | | + + + + + | [facility] | [address] | [place] [address] | | | PATHOLOGY | [address] | | | + + + + + documented in this encounter Visit Diagnoses + + | Diagnosis | + + | Chronic hepatitis C without mention of hepatic coma - Primary | + + documented in this encounter"
--- OUTSIDE RECORDS SUMMARY | ~2019-05-18 | XMS | Encounter Summary ---
Demographics + + + | Address | GENERAL DELIVERY | | | [place] [address] | + + + | Home Phone [...] Team Providers + +------+ + | Care Analysis Evaluator Name | Role | Phone | + [...] | | | | | | | [address] | | | | | | | Ave | | | | | | | [place], [place] | | | | | | | [address] | +--------+--------+ + + + + Encounter [...] | | | | Mailcode: CH10U | [place], [place] | | | | | [facility] | [address] | | | | | and Healing, | [phone] | | | | | | | | | | | Floor [place], [place] | | | | | | [address] | | | | | | [phone] | | | +--------+ + + + [...] month Facility will likely change care to [place] due to distance. documented in this encounter Plan of Treatment Not on filedocumented as of this encounter Visit Diagnoses + + | Diagnosis | + + | Urinary retention - Primary Retention of urine, unspecified | + + documented in this encounter"
--- OUTSIDE RECORDS SUMMARY | ~2019-05-18 | XMS | Encounter Summary ---
Demographics + + + | Address | GENERAL DELIVERY | | | [place] [address] | + + + | Home Phone [...] Team Providers + +------+ + | Care Sandwich Counter Attendant Name | Role | Phone | [...] | | | URINARY | [place] | [address] | | | | | RETENTION | STATE | Ave | | | | | | HOSPITAL | [place], [place] | | | | | | [address] | [address] | | | | | | [address] | | | | | | | [place] | | | | | | | [address] | | | | | | | Phone: | | | | | | | [phone] | | | | | | | Fax: | | | | | | | [phone] | | +--------+--------+ + + + + Encounter Details +--------+ + + + + | Date | Type | Department | Care Team | Description | +--------+ + + + + | 03/28/ | Procedure | Urology Adult | Wang Canchola MD | Cystoscopy | | 2009 | | [address] | | | | | | Mailcode: CH10U | | | | | | [facility] | | | | | | and Healing, | | | | | | Building | | | | | | Floor [place], [place] | | | | | | [address] | | | | | | [phone] | | | +--------+ + + + [...] hands with soap and water or hand drilling machine runner. Clean the tip of the penis with [...] or contact PCP or call us at [phone] or after hours at [phone] for signs or symptoms of UTI. Urinary [...] Resident Physician - Division of Urology Pager #[id number] Wang Fitzgerald Md - 1 05/28/2009 10:48 [...] | + +--------+ + + + | [place] CYSTOURETHROSCOPY | Routin | 03/28/2010 | Unspecified [...] | + +--------+ + + + | [place] CYSTOURETHROSCOPY | Routin | 03/28/2010 | Voiding | Results for this | | | e | | dysfunction | procedure are in the | | | | | | results section. | + +--------+ + + + documented in this encounter Results [place] CYSTOURETHROSCOPY (03/28/2010) + + + | Narrative [...] [facility] | [place] [address] | | | OF CARE TESTS | | | | + + + + + documented in this encounter Visit Diagnoses + + | Diagnosis | + + | Retention of urine, unspecified | + + | Voiding dysfunction Unspecified disorder of urethra and urinary tract | + + documented in this encounter"
--- OUTSIDE RECORDS SUMMARY | ~2019-05-18 | XMS | Encounter Summary ---
Demographics + + + | Address | GENERAL DELIVERY | | | [place] [address] | + + + | Home Phone [...] Team Providers + +------+ + | Care Mining Manager Name | Role | Phone | [...] | | 2007 | | Center at [facility] [address] | [address] | your call.) | | | [address] | [place], [place] | | | | | Mailcode: OC8D | [address] | | | | | [place] [facility] | [phone] | | | | | and Healing, | | | | | | [address] | | | | | | [place], [place] | | | | | | [address] | | | | | | [phone] | | | +--------+ + + + [...]
--- OUTSIDE RECORDS SUMMARY | ~2019-05-18 | XMS | Encounter Summary ---
Demographics + + + | Address | GENERAL DELIVERY | | | [place] [address] | + + + | Home Phone [...] Providers + +------+ + | Care Manager Project Management Name | Role | Phone | + +------+ + PCP | Unavailable | + +------+ + Encounter Details +--------+ + + + + | Date | Type | Department | Care Team | Description | +--------+ + + + + | 12/27/ | Telephone | [facility] | Jeancarlos Marley MD | | | 2007 | | [place] [address] [address] | [address] | | | | | [address] | [place], [place] | | | | | Mailcode: OC8D | [address] | | | | | [facility] | [phone] | | | | | and Healing, | | | | | | [address] | | | | | | [place], [place] | | | | | | [address] | | | | | | [phone] | | | +--------+ + + + [...]
--- OUTSIDE RECORDS SUMMARY | ~2019-05-18 | XMS | Encounter Summary ---
Demographics + + + | Address | GENERAL DELIVERY | | | [place] [address] | + + + | Home Phone [...] Team Providers + +------+ + | Care Power Plant Operations Manager Name | Role | Phone | + +------+ + PCP | Unavailable | + +------+ + Encounter Details +--------+ + + + + | Date | Type | Department | Care Team | Description | +--------+ + + + + | 06/14/ | Document-Sc | Digestive Health | Jeancarlos Marley MD | | | 2015 | anned | [place] [address] [address] | [address] | | | | | [address] | [place], [place] | | | | | Mailcode: OC8D | [address] | | | | | [facility] | [phone] | | | | | and Healing, | | | | | | [address] | | | | | | [place], [place] | | | | | | [address] | | | | | | [phone] | | | +--------+ + + + [...]
--- OUTSIDE RECORDS SUMMARY | ~2019-05-18 | XMS | Encounter Summary ---
Demographics + + + | Address | GENERAL DELIVERY | | | [place] [address] | + + + | Home Phone [...] Team Providers + +------+ + | Care Chartered Wealth Manager Name | Role | Phone | [...] | | | Ave Mailcode: CH6D | [place], [place] | | | | | [place] [facility] | [address] | | | | | and Healing, | [phone] | | | | | [facility] | | | | | | Floor [place], [place] | | | | | | [address] | | | | | | [phone] | | | +--------+ + + + [...]
--- OUTSIDE RECORDS SUMMARY | ~2019-05-18 | XMS | Encounter Summary ---
Demographics + + + | Address | GENERAL DELIVERY | | | [place] [address] | + + + | Home Phone [...] Team Providers + +------+ + | Care Presidential Helicopter Crew Chief Name | Role | Phone | + [...] | Telephone | Digestive Health | Jeancarlos aMrley MD | Other (Returning | | 2007 | | Center at [facility] [address] | [address] | your call.) | | | | [address] | [place], [place] | | | | | Mailcode: OC8D | [address] | | | | | [place] [facility] | [phone] | | | | | and Healing, | | | | | | [address] | | | | | | [place], [place] | | | | | | [address] | | | | | | [phone] | | | +--------+ + + + [...]
--- OUTSIDE RECORDS SUMMARY | ~2019-05-18 | XMS | Encounter Summary ---
Demographics + + + | Address | GENERAL DELIVERY | | | [place] [address] | + + + | Home Phone [...] Team Providers + +------+ + | Care Marketing Services Specialist Name | Role | Phone | [...] Abdominal pain | | 2007 | | [place] [address] [address] | [address] | | | | | [address] | [place], [place] | | | | | Mailcode: OC8D | [address] | | | | | [place] | [phone] | | | | | and Healing, | | | | | | [address] | | | | | | [place], [place] | | | | | | [address] | | | | | | [phone] | | | +--------+ + + + [...]
--- OUTSIDE RECORDS SUMMARY | ~2019-05-18 | XMS | Clinical Summary ---
Demographics + + + | Address | [address] | | | [place] [address] | + + + | Home Phone | | + + + | Preferred Language | Unknown | + + + | Marital Status | | + + + | Quaker Affiliation | Unknown | + + + | Race | Unknown | + + + | Ethnic Group | Unknown | + + + Author + + + | Author | [facility] (Historical as of | | | 01-01-19) | + + + | Organization | [facility] (Historical as of | | | 01-01-19) [...] Team Providers + +------+ + | Care Spiral Gear Generator Name | Role | Phone | + [...]
--- OUTSIDE RECORDS SUMMARY | ~2019-05-18 | XMS | Encounter Summary ---
Demographics + + + | Address | GENERAL DELIVERY | | | [place] [address] | + + + | Home Phone [...] Team Providers + +------+ + | Care Orthophoto Tech/Draftsman Name | Role | Phone | + +------+ + | Etienne Barnes PA-C | PCP | | + +------+ + Encounter Details +--------+ + + + + | Date | Type | Department | Care Team | Description | +--------+ + + + + | 06/15/ | Document-Sc | UNKNOWN DEPARTMENT | Unknown . | | | 2014 | anned | [address] [facility] | | | | | | [address] | | | | | | [place], [place] | | | | | | [address] | | | +--------+ + + + [...]
--- OUTSIDE RECORDS SUMMARY | ~2019-05-18 | XMS | Encounter Summary ---
Demographics + + + | Address | GENERAL DELIVERY | | | [place] [address] | + + + | Home Phone [...] Team Providers + +------+ + | Care Bow Repairer Custom Name | Role | Phone | + [...] abd u/s | | 2007 | | [place] at [facility] [address] | [address] | order faxed/mailed) | | | | [address] | [place], [place] | | | | | Mailcode: [id number] | [address] | | | | | [facility] | [phone] | | | | | and [place], | | | | | | [address] | | | | | | [place], [place] | | | | | | [address] | | | | | | [phone] | | | +--------+ + + + [...]
--- OUTSIDE RECORDS SUMMARY | ~2019-05-18 | XMS | Encounter Summary ---
Demographics + + + | Address | GENERAL DELIVERY | | | [place] [address] | + + + | Home Phone [...] Team Providers + +------+ + | Care Printing Pressman Name | Role | Phone | + +------+ + PCP | Unavailable | + +------+ + Encounter Details +--------+ + + + + | Date | Type | Department | Care Team | Description | +--------+ + + + + | 06/15/ | Document-Sc | Digestive Health | Jeancarlos Marley MD | | | 2015 | anned | [place] [address] [address] | [address] | | | | | [address] | [place], [place] | | | | | Mailcode: OC8D | [address] | | | | | [facility] | [phone] | | | | | and Healing, | | | | | | [address] | | | | | | [place], [place] | | | | | | [address] | | | | | | [phone] | | | +--------+ + + + [...]
--- OUTSIDE RECORDS SUMMARY | ~2019-05-18 | XMS | Encounter Summary ---
Demographics + + + | Address | GENERAL DELIVERY | | | [place] [address] | + + + | Home Phone [...] Team Providers + +------+ + | Care Licensed Clinician Name | Role | Phone | [...] | | | | | HOSPITAL | [place], [place] | | | | | | [address] | [address] | | | | | | [address] | | | | | | | [place], [place] | | | | | | | [address] | | | | | | | Phone: | | | | | | | [phone] | | | | | | | Fax: | | | | | | | [phone] | | +--------+--------+ + + + + [...] | Voiding dysfunction | | | | [facility] | | | | | | and Healing, | | | | | | Building | | | | | | Floor [facility] [place] | | | | | | [address] | | | | | | [phone] | | | +--------+---------+ + + + [...] He is currently an inpatient in the [facility] for schizo-affective disorder. Since the onset [...] | | | | | | [facility] | | | | | | [address] | | | | [address] | | | | | | [place] [address] | | | | | | [place] [address] | | | | + + + + + + + + | Specimen | + + | Urine - Catheter - | | single | + + + + + + + | Performing | Address | City/State/Zipcode | Phone Number | | Organization | | | | + + + + + | [facility] | [address] | [place] [address] | | | LAB-MICRO | | | | + + + + + documented in this encounter Visit Diagnoses + + | Diagnosis | + + | Retention of urine, unspecified | + + | Voiding dysfunction Unspecified disorder of urethra and urinary tract | + + documented in this encounter
--- OUTSIDE RECORDS SUMMARY | ~2019-05-18 | XMS | Encounter Summary ---
Demographics + + + | Address | GENERAL DELIVERY | | | [place] [address] | + + + | Home Phone [...] Team Providers + +------+ + | Care Industrial Laborer Name | Role | Phone | [...] | | | | Mailcode: CH10U | [place], [place] | | | | | [facility] | [address] | | | | | and [place], | [phone] | | | | | [facility] | | | | | | Floor [place], [place] | | | | | | [address] | | | | | | [phone] | | | +--------+ + + + [...]
--- OUTSIDE RECORDS SUMMARY | ~2019-05-18 | XMS | Encounter Summary ---
Demographics + + + | Address | GENERAL DELIVERY | | | [place] [address] | + + + | Home Phone [...] Providers + +------+ + | Care Machine Applicator Cementer Name | Role | Phone | [...] Hepatitis C | | 2007 | | [place] [address] [address] | [address] | without Mention of | | | | [address] | [place], [place] | Hepatic Coma | | | | Mailcode: OC8D | [address] | (Primary Dx) | | | | [facility] | [phone] | | | | | and Healing, | | | | | | [address] | | | | | | [place], [place] | | | | | | [address] | | | | | | [phone] | | | +--------+ + + + [...] Performed At | + + + | [id number] Estimated GFR > 60 mL/min/1.73 sq m if non- | [facility] | | [id number] Estimated GFR > 60 mL/min/1.73 sq m [...] | [facility] DEPARTMENT | [address] [facility] [address] | [place] [address] | | | PATHOLOGY | [address] | | | + + + + + | [facility] | [address] | [place] [address] | | | PATHOLOGY | [address] [...] [facility] DEPARTMENT OF | [address] | [place] [address] | | | PATHOLOGY | [address] | | | + + + + + | [facility] | [facility] [address] | [place] [address] | | | PATHOLOGY | [address] [...] | + + + + + | [facility] DEPARTMENT OF | [address] | [place] [address] | | | PATHOLOGY | [address] | | | + + + + + | [facility] DEPARTMENT OF | [address] | [place] [address] | | | PATHOLOGY | [address] [...] | + + + + + | [facility] | [address] | [place] [address] | | | PATHOLOGY | [address] | | | + + + + + | [facility] | [address] | [place] [address] | | | PATHOLOGY | [address] [...] | + + + + + | [facility] | [address] | [place] [address] | | | PATHOLOGY | [address] | | | + + + + + | [facility] | [address] | [place] [address] | | | PATHOLOGY | [address] [...] by | | | | | | [facility] | | | | | | Glopho. | | | | + + + + + + + + | Specimen | + + | | + + + + + + + | Performing | Address | City/State/Zipcode | Phone Number | | Organization | | | | + + + + + | [facility] | [address] | [place] [address] | | | LABORATORY | | | [...] + | Test performed by [facility]. | | + + + + + + + + | Performing | Address | City/State/Zipcode | Phone Number | | Organization | | | | + + + + + | [facility] | [address] | [place] [address] | | | LABORATORY | | | [...] effective 03/08/07 | | | [facility] | | | [address] [place], [place] | | | [address] | | + + + + + + + + | Performing | Address | City/State/Zipcode | Phone Number | | Organization | | | | + + + + + | [facility] | [address] | [place] [address] | | | LABORATORY | | | [...] Iron and TIBC, Serum Test performed by [facility] | | | [facility]. | | + + + + + + + + | Performing | Address | City/State/Zipcode | Phone Number | | Organization | | | | + + + + + | [facility] | [address] | [place] [address] | | | LABORATORY | | | [...] References:1.) | | | | | | Navojt Tinoco, | | | | | | [...] | | | | | determined bythe [facility] | | | | [...] | | | | | Improvement Act [id number]. | | | | | | The [facility] | | | | | | Laboratory is a fully | | | | | | licensed and/ | | | | | | oraccredited clinical | | | | | | laboratory under CLIA, | | | | | | CAP, and the State of | | | | | | [place]. | | | | + + + + + + + + | Specimen | + + | | + + + + + + + | Performing | Address | City/State/Zipcode | Phone Number | | Organization | | | | + + + + + | [facility] | [address] | [place] [address] | | | [facility] | [address] | | | | | [place]. | | | + + + + + documented in this encounter Visit Diagnoses + + | Diagnosis | + + | Chronic hepatitis C without mention of hepatic coma - Primary | + + documented in this encounter
--- OUTSIDE RECORDS SUMMARY | ~2019-05-18 | XMS | Encounter Summary ---
Demographics + + + | Address | GENERAL DELIVERY | | | [place] [address] | + + + | Home Phone [...] Team Providers + +------+ + | Care Sheet Metal Journeyman Name | Role | Phone | + +------+ + PCP | Unavailable | + +------+ + Encounter Details +--------+ + + + + | Date | Type | Department | Care Team | Description | +--------+ + + + + | 06/15/ | Document-Sc | Dig[facility]ive Health | Jeancarlos Marley MD | | | 2015 | anned | [place] [address] | [address] | | | | | [address] | [place], [place] | | | | | Mailcode: OC8D | [address] | | | | | [facility] | [phone] | | | | | and Healing, | | | | | | [address] | | | | | | [place], [place] | | | | | | [address] | | | | | | [phone] | | | +--------+ + + + [...]
--- OUTSIDE RECORDS SUMMARY | ~2019-05-18 | XMS | Encounter Summary ---
Demographics + + + | Address | GENERAL DELIVERY | | | [place] [address] | + + + | Home Phone [...] Team Providers + +------+ + | Care Etiology Teacher Name | Role | Phone | [...] | | | | | [address] | [place], [place] | | | | | [facility] | [address] | | | | | (MNP/OLD [facility]) | [phone] | | | | | [place], [place] | | | | | | [address] | | | | | | [phone] | | | +--------+ + + + [...] Discharge Instructions Instructions Katie Kuo RN - 02/14/2011[facility] Home Care After Reyna Catheter [...] from 8:00 4:30, call the Urology Clinic [phone]. After hours, weekend and holidays call the Hospital Engine House Helper at [phone]. Ask for them to page your doctor. Your doctor is RETURN APPOINTMENT Pre-Scheduled for March 31, 2011 @ 10:45 AM Call the Urology clinic to confirm this appointment . Urology Clinic [phone] Please call the clinic if you need [...]
--- OUTSIDE RECORDS SUMMARY | ~2019-05-18 | XMS | Encounter Summary ---
Demographics + + + | Address | GENERAL DELIVERY | | | [place] [address] | + + + | Home Phone [...] Team Providers + +------+ + | Care Shellfish Checker Name | Role | Phone | [...] Abdominal pain | | 2007 | | [place] [address] | [address] | | | | [address] | [place], [place] | | | | | Mailcode: OC8D | [address] | | | | | [facility] | [phone] | | | | | and Healing, | | | | | | [address] | | | | | | [place], [place] | | | | | | [address] | | | | | | [phone] | | | +--------+ + + + [...]
--- OUTSIDE RECORDS SUMMARY | ~2019-05-18 | XMS | Encounter Summary ---
Demographics + + + | Address | GENERAL DELIVERY | | | [place] [address] | + + + | Home Phone [...] Team Providers + +------+ + | Care Support Specialist Name | Role | Phone | [...] | | | | Mailcode: CH10U | [place], [place] | | | | | [facility] | [address] | | | | | and Healing, | [phone] | | | | | | | | | | | Floor [place], [place] | | | | | | [address] | | | | | | [phone] | | | +--------+ + + + [...]
--- OUTSIDE RECORDS SUMMARY | ~2019-05-18 | XMS | Encounter Summary ---
Demographics + + + | Address | GENERAL DELIVERY | | | [place] [address] | + + + | Home Phone [...] Team Providers + +------+ + | Care Lode Miner Blasting Name | Role | Phone | + [...] | | | | | NORTH[address] | [place], [place] | | | | | [facility] | [address] | | | | | (MNP/[facility]) | [phone] | | | | | [place], [place] | | | | | | [address] | | | | | | [phone] | | | +--------+ + + + [...] Discharge Instructions Instructions Katie Kuo RN - 02/14/2011[facility] Home Care After Reyna Catheter [...] from 8:00 4:30, call the Urology Clinic [phone]. After hours, weekend and holidays call the Hospital Combat Systems Operator at [phone]. Ask for them to page your doctor. Your doctor is RETURN APPOINTMENT Pre-Scheduled for March 31, 2011 @ 10:45 AM Call the Urology clinic to confirm this appointment . Urology Clinic [phone] Please call the clinic if you need [...]
--- OUTSIDE RECORDS SUMMARY | ~2019-05-18 | XMS | Encounter Summary ---
Demographics + + + | Address | GENERAL DELIVERY | | | [place] [address] | + + + | Home Phone [...] Team Providers + +------+ + | Care Inweaver Name | Role | Phone | + [...] | | | | Mailcode: CH10U | [place], [place] | | | | | [facility] | [address] | | | | | and Healing, | [phone] | | | | | | | | | | | Floor [place], [place] | | | | | | [address] | | | | | | [phone] | | | +--------+ + + + [...]
--- OUTSIDE RECORDS SUMMARY | ~2019-05-18 | XMS | Encounter Summary ---
Demographics + + + | Address | GENERAL DELIVERY | | | [place] [address] | + + + | Home Phone [...] Providers + +------+ + | Care Skein Straightener Name | Role | Phone | + +------+ + PCP | Unavailable | + +------+ + Encounter Details +--------+------+ + + + | Date | Type | Department | Care Team | Description | +--------+------+ + + + | 12/23/ | Lab | Laboratory at [facility] | | RUQ Abdominal Pain; | | 2007 | | [address] | | Chronic Hepatitis C | | | | [place], [place] | | without Mention of | | | | [address] | | Hepatic Coma | | | | [phone] | | | +--------+------+ + + + [...] + + | [facility] | [address] | [place] [address] | | | PATHOLOGY | [address] | | | + + + + + | [facility] | [facility] [address] | [place] [address] | | | PATHOLOGY | [address] [...] [facility] DE[facility] | [address] | [place] [address] | | | PATHOLOGY | [address] | | | + + + + + | [facility] DEPARTMENT OF | [address] | [place] [address] | | | PATHOLOGY | [address] [...] + + | [facility] | [address] | [place] [address] | | | PATHOLOGY | [address] | | | + + + + + | [facility] | [address] | [place] [address] | | | PATHOLOGY | [address] [...] Performed At | + + + | [id number] Estimated GFR > 60 mL/min/1.73 sq m if non- | [facility] | | [place]ian [id number] Estimated GFR > 60 mL/min/1.73 sq m if | DEPARTMENT OF | | [place]ian GFR is estimated using the MDRD equation [...] + + | [facility] | [address] | [place] [address] | | | PATHOLOGY | [address] | | | + + + + + | [facility] | [address] | [place] [address] | | | PATHOLOGY | [address] | | | + + + + + documented in this encounter Visit Diagnoses + + | Diagnosis | + + | RUQ abdominal pain Abdominal pain, right upper quadrant | + + | Chronic hepatitis C without mention of hepatic coma | + + documented in this encounter"
--- OUTSIDE RECORDS SUMMARY | ~2019-05-18 | XMS | Encounter Summary ---
Demographics + + + | Address | GENERAL DELIVERY | | | [place] [address] | + + + | Home Phone | | + + + | Preferred Language | Unknown | + + + | Marital Status | Single | + + + | Mosque Affiliation | NON | + + + [...] Providers + +------+ + | Care Scrap Drop Operator Name | Role | Phone | [...] Catheter Problem | | 2009 | | [address] | | | | | | Mailcode: CH10U | | | | | | [facility] | | | | | | and Healing, | | | | | | [address] | | | | | | Floor [place], [place] | | | | | | [address] | | | | | | [phone] | | | +--------+ + + + [...]
--- OUTSIDE RECORDS SUMMARY | ~2019-05-18 | XMS | Encounter Summary ---
Demographics + + + | Address | GENERAL DELIVERY | | | [place] [address] | + + + | Home Phone | | + + + | Preferred Language | Unknown | + + + | Marital Status | Single | + + + | Faith Affiliation | NON | + + + [...] Team Providers + +------+ + | Care Mainframe Applications Developer Name | Role | Phone | [...] Appointment Question | | 2009 | | [address] | | | | | | Mailcode: CH10U | | | | | | [facility] | | | | | | and Healing, | | | | | | [address] | | | | | | Floor [place], [place] | | | | | | [address] | | | | | | [phone] | | | +--------+ + + + [...]
--- OUTSIDE RECORDS SUMMARY | ~2019-05-18 | XMS | Encounter Summary ---
Demographics + + + | Address | GENERAL DELIVERY | | | [place] [address] | + + + | Home Phone [...] Team Providers + +------+ + | Care Class B Truck Driver Name | Role | Phone [...] | | 2014 | anned | [address] [facility] | | | | | | [address] | | | | | | [place], [place] | | | | | | [address] | | | +--------+ + + + [...]
--- OUTSIDE RECORDS SUMMARY | ~2019-05-18 | XMS | Encounter Summary ---
Demographics + + + | Address | GENERAL DELIVERY | | | [place] [address] | + + + | Home Phone [...] Providers + +------+ + | Care Customer Greeter Name | Role | Phone | + +------+ + | Etienne Barnes PA-C | PCP | | + +------+ + Encounter Details +--------+ + + + + | Date | Type | Department | Care Team | Description | +--------+ + + + + | 06/07/ | Document-Sc | UNKNOWN DEPARTMENT | Unknown . | | | 2014 | anned | [address] [facility] | | | | | | [address] | | | | | | [place], [place] | | | | | | [address] | | | +--------+ + + + [...]
--- OUTSIDE RECORDS SUMMARY | ~2019-05-18 | XMS | Encounter Summary ---
Demographics + + + | Address | GENERAL DELIVERY | | | [place] [address] | + + + | Home Phone [...] Team Providers + +------+ + | Care Ironworker Foreman Name | Role | Phone | [...] Abdominal pain | | 2008 | | [place] [address] | [address] | | | | | [address] | [place], [place] | | | | | Mailcode: OC8D | [address] | | | | | [facility] | [phone] | | | | | and Terrence, | | | | | | [address] | | | | | | [place], [place] | | | | | | [address] | | | | | | [phone] | | | +--------+ + + + [...]
--- OUTSIDE RECORDS SUMMARY | ~2019-05-18 | XMS | Encounter Summary ---
Demographics + + + | Address | GENERAL DELIVERY | | | [place] [address] | + + + | Home Phone [...] Team Providers + +------+ + | Care Radio Recorder Name | Role | Phone | + [...] | Appointment | | 2009 | | [address] | | | | | | Mailcode: CH10U | | | | | | [facility] | | | | | | and Healing, | | | | | | | | | | | | Floor [place], [place] | | | | | | [address] | | | | | | [phone] | | | +--------+ + + + [...]
--- OUTSIDE RECORDS SUMMARY | ~2019-05-18 | XMS | Encounter Summary ---
Demographics + + + | Address | GENERAL DELIVERY | | | [place] [address] | + + + | Home Phone [...] Providers + +------+ + | Care Supervisor Blood Name | Role | Phone | + [...] | Pain | | 2014 | | [place] [address] | [address] | | | | | [address] | [place], [place] | | | | | Mailcode: OC8D | [address] | | | | | [facility] | [phone] | | | | | and Healing, | | | | | | [address] | | | | | | [place], [place] | | | | | | [address] | | | | | | [phone] | | | +--------+ + + + [...]
--- OUTSIDE RECORDS SUMMARY | ~2019-05-18 | XMS | Encounter Summary ---
Demographics + + + | Address | GENERAL DELIVERY | | | [place] [address] | + + + | Home Phone [...] Team Providers + +------+ + | Care Video Editor Name | Role | Phone | + [...] Appointment Question | | 2009 | | [address] | | | | | | Mailcode: CH10U | | | | | | [facility] | | | | | | and Healing, | | | | | | [address] | | | | | | Floor [place], [place] | | | | | | [address] | | | | | | [phone] | | | +--------+ + + + [...]
--- OUTSIDE RECORDS SUMMARY | ~2019-05-18 | XMS | Encounter Summary ---
Demographics + + + | Address | GENERAL DELIVERY | | | [place] [address] | + + + | Home Phone [...] Team Providers + +------+ + | Care Process Assistant Name | Role | Phone | [...] | | | | | HOSPITAL | [place], [place] | | | | | | [address] | [address] | | | | | | [address] | | | | | | | [place], [place] | | | | | | | [address] | | | | | | | Phone: | | | | | | | [phone] | | | | | | | Fax: | | | | | | | [phone] | | +--------+--------+ + + + + [...] | Voiding dysfunction | | | | [facility] | | | | | | and Healing, | | | | | | Building | | | | | | Floor [facility] [place] | | | | | | [address] | | | | | | [phone] | | | +--------+---------+ + + + [...] He is currently an inpatient in the [facility] for schizo-affective disorder. Since the onset [...] | | | | | | [facility] | | | | | | [address] | | | | [address] | | | | | | [place] [address] | | | | | | [place] [address] | | | | + + + + + + + + | Specimen | + + | Urine - Catheter - | | single | + + + + + + + | Performing | Address | City/State/Zipcode | Phone Number | | Organization | | | | + + + + + | [facility] | [address] | [place] [address] | | | LAB-MICRO | | | | + + + + + documented in this encounter Visit Diagnoses + + | Diagnosis | + + | Retention of urine, unspecified | + + | Voiding dysfunction Unspecified disorder of urethra and urinary tract | + + documented in this encounter
--- OUTSIDE RECORDS SUMMARY | ~2019-05-18 | XMS | Encounter Summary ---
Demographics + + + | Address | GENERAL DELIVERY | | | [place] [address] | + + + | Home Phone [...] Team Providers + +------+ + | Care Yarn Polishing Machine Operator Name | Role | Phone [...] | Appointment | | 2009 | | [address] | | | | | | Mailcode: CH10U | | | | | | [facility] | | | | | | and Healing, | | | | | | | | | | | | Floor [place], [place] | | | | | | [address] | | | | | | [phone] | | | +--------+ + + + [...]
--- OUTSIDE RECORDS SUMMARY | ~2019-05-18 | XMS | Clinical Summary ---
Demographics + + + | Address | GENERAL DELIVERY | | | [place] [address] | + + + | Home Phone [...] Team Providers + +------+ + | Care Graphite Grinder Name | Role | Phone | + +------+ + | Fam Donnelly MD | PCP | | + +------+ + Source Comments [facility] is fully live on [facility] Allergies + + + + + [...] | | t Plan | ID | hebrert | | | | | | / | | Dates | | | | | | Group | | | | | | + +--------+ +--------+-------+---------+--------+ | [place] | AGENCY | xxxxxxxxx | 05/18/19 | | | Agency | | | STATE | | 11-Pre | | | | | | OF | | sent | | | | | | [place] | | | | | | + +--------+ +--------+-------+---------+--------+ | SUPERVISING FILM OR VIDEOTAPE EDITOR MEDICAID | SUPERVISING FILM OR VIDEOTAPE EDITOR | [id number] | 05/22/19 | | | [...] | 1980 | [phone] | [place] [address] | | | linda | | | 3 (Home) | | + +--------+ +--------+ + + | Peng Richardson | Agency | Self | [birth year] | | GENERAL DELIVERY | | | | | 1980 | [phone] | [place] [address] | | | | | | 3 (Home) | | + +--------+ +--------+ + + Advance Directives + + + + + | Type | Date Recorded | Patient | Explanation | | | | Airline Security Representative | | + + + + + | Advance | | | | | Directives and | | | | | Living Will | | | | + + + + + | Power of | | | | | [place] And Silverware Salesperson | | | | + + + + +
--- OUTSIDE RECORDS SUMMARY | ~2019-05-18 | XMS | Encounter Summary ---
Demographics + + + | Address | GENERAL DELIVERY | | | [place] [address] | + + + | Home Phone [...] Team Providers + +------+ + | Care Non Profit Job Titles Name | Role | Phone | + [...] Required | | hepatitis C | [address] | [address] | | | | | without | [address] | Ave | | | | | mention of | [place], | [place], [place] | | | | | hepatic coma | [place] [address] | [address] | | | | | Procedures | Phone: | Phone: | | | | | CONSULT TO | [phone] | [phone] | | | | | HEPATOLOGY | Fax: | Fax: | | | | | | [phone] | [phone] | +--------+ + + + + + Encounter Details +--------+---------+ + + + | Date | Type | Department | Care Team | Description | +--------+---------+ + + + | 01/25/ | Office | Digestive Health | Jeancarlos Rich MD | Chronic hepatitis C | | 2011 | Visit | Center at [facility] [address] | [address] | without mention of | | | | [address] | [place], [place] | hepatic coma | | | | Mailcode: OC8D | [address] | (Primary Dx) | | | | [facility] | [phone] | | | | | and Healing, | | | | | | Building [address] | | | | | | [place], [place] | | | | | | [address] | | | | | | [phone] | | | +--------+---------+ + + + [...] Of [facility] in [place] until 2014 1.6 ) no liver biopsy to date 1.7) vaccinated for HAV/HBV in the past PAST MEDICAL HISTORY 2) HTN 3) Schizophrenia and anxiety:now committed to [facility] 4) obesity [...] interim he has been committed to the [facility] facility. At this time he has no clinical evidence of cirrhosis. Unfortunat birgit the current HCV treatment regimen still includes interferon, which will exacerbate any u nderlying psychiatric issues. Unless he can be safely watched and protected in the [facility], there will not be a way to use interferon-based therapy. It would be unreasonable to consider a liver biopsy (can be done in [place] thru radiology, ie ultrasound guided) to asses s degree of liver fibrosis, before even contemplating any therapy. Recommend thru Drs. Robin/Mike patients get the followin. CMP, CBC, plts, diff, INR 2. Decide if patient can be treated safely in [facility] with interferon regimen. If possible, would recommend liver biopsy (in [place]) and then will results [facility]. 3) If interferon-based therapy is deemed [...]
--- OUTSIDE RECORDS SUMMARY | ~2019-05-18 | XMS | Encounter Summary ---
Demographics + + + | Address | GENERAL DELIVERY | | | [place] [address] | + + + | Home Phone [...] Team Providers + +------+ + | Care District Court Justice Name | Role | Phone | + [...] | | | | Mailcode: CH10U | [place], [place] | and counseling | | | | [facility] | [address] | | | | | and Healing, | [phone] | | | | | [facility] | | | | | | Floor [place], [place] | | | | | | [address] | | | | | | [phone] | | | +--------+ + + + [...]
--- OUTSIDE RECORDS SUMMARY | ~2019-05-18 | XMS | Encounter Summary ---
Demographics + + + | Address | GENERAL DELIVERY | | | [place] [address] | + + + | Home Phone [...] Providers + +------+ + | Care Fish Farm Manager Name | Role | Phone | [...] Required | | hepatitis C | [address] | [address] | | | | | without | [address] | Ave | | | | | mention of | [place], | [place], [place] | | | | | hepatic coma | [place] [address] | [address] | | | | | Procedures | Phone: | Phone: | | | | | CONSULT TO | [phone] | [phone] | | | | | HEPATOLOGY | Fax: | Fax: | | | | | | [phone] | [phone] | +--------+ + + + + + Encounter Details +--------+---------+ + + + | Date | Type | Department | Care Team | Description | +--------+---------+ + + + | 01/25/ | Office | Digestive Health | Jeancarlos Rich MD | Chronic hepatitis C | | 2011 | Visit | Center at [facility] [address] | [address] | without mention of | | | | [address] | [place], [place] | hepatic coma | | | | Mailcode: OC8D | [address] | (Primary Dx) | | | | [facility] | [phone] | | | | | and Healing, | | | | | | Building [address] | | | | | | [place], [place] | | | | | | [address] | | | | | | [phone] | | | +--------+---------+ + + + [...] infected in 2002 1.4)Obese 1.5) committed to [facility] in [place] until 2014 1.6 ) no liver biopsy to date 1.7) vaccinated for HAV/HBV in the past PAST MEDICAL HISTORY 2) HTN 3) Schizophrenia and anxiety:now committed to [facility] 4) obesity Current Outpatient [...] interim he has been committed to the [facility] facility. At this time he has no clinical evidence of cirrhosis. Unfortunat birgit the current HCV treatment regimen still includes interferon, which will exacerbate any u nderlying psychiatric issues. Unless he can be safely watched and protected in the [facility], there will not be a way to use interferon-based therapy. It would be unreasonable to consider a liver biopsy (can be done in [place] thru radiology, ie ultrasound guided) to asses s degree of liver fibrosis, before even contemplating any therapy. Recommend thru Drs. Robin/Mike patients get the followin. CMP, CBC, plts, diff, INR 2. Decide if patient can be treated safely in [facility] with interferon regimen. If possible, would recommend liver biopsy (in [place]) and then will results in hand return to s [facility]. 3) If interferon-based therapy is deemed [...]
--- OUTSIDE RECORDS SUMMARY | ~2019-05-18 | XMS | Encounter Summary ---
Demographics + + + | Address | GENERAL DELIVERY | | | [place] [address] | + + + | Home Phone [...] Team Providers + +------+ + | Care Record Tabulating Clerk Name | Role | Phone | [...] Rd | | | | | | [place], [place] | | | | | | [address] | | | +--------+ + + + [...]
--- OUTSIDE RECORDS SUMMARY | ~2019-05-18 | XMS | Encounter Summary ---
Demographics + + + | Address | GENERAL DELIVERY | | | [place] [address] | + + + | Home Phone [...] Team Providers + +------+ + | Care Urban Planning Professor Name | Role | Phone | [...] + + | 06/13/ | Telephone | [facility] | Jeancarlos Marley MD | Pain | | 2014 | | [place] [address] [address] | [address] | | | | | [address] | [place], [place] | | | | | Mailcode: OC8D | [address] | | | | | [facility] | [phone] | | | | | and Healing, | | | | | | [address] | | | | | | [place], [place] | | | | | | [address] | | | | | | [phone] | | | +--------+ + + + [...]
--- OUTSIDE RECORDS SUMMARY | ~2019-05-18 | XMS | Encounter Summary ---
Demographics + + + | Address | GENERAL DELIVERY | | | [place] [address] | + + + | Home Phone [...] Providers + +------+ + | Care Painter Aircraft Name | Role | Phone | + [...] | | | | | | | [address] | | | | | | | Ave | | | | | | | [place], [place] | | | | | | | [address] | +--------+--------+ + + + + Encounter [...] | | | | Mailcode: CH10U | [place], [place] | | | | | [facility] | [address] | | | | | and Healing, | [phone] | | | | | | | | | | | Floor [place], [place] | | | | | | [address] | | | | | | [phone] | | | +--------+ + + + [...] month Facility will likely change care to [place] due to distance. documented in this encounter Plan of Treatment Not on filedocumented as of this encounter Visit Diagnoses + + | Diagnosis | + + | Urinary retention - Primary Retention of urine, unspecified | + + documented in this encounter"
--- OUTSIDE RECORDS SUMMARY | ~2019-05-18 | XMS | Encounter Summary ---
Demographics + + + | Address | GENERAL DELIVERY | | | [place] [address] | + + + | Home Phone [...] Team Providers + +------+ + | Care Ventilated Rib Fitter Name | Role | Phone | + +------+ + | [place] | PCP | | + +------+ + Encounter Details +--------+ + + + + | Date | Type | Department | Care Team | Description | +--------+ + + + + | 02/27/ | Telephone | [facility] | Jaencarlos Marley MD | | | 2007 | | [place] [address] [address] | [address] | | | | [address] | [place], [place] | | | | | Mailcode: OC8D | [address] | | | | | [facility] | [phone] | | | | | and Healing, | | | | | | Building [address] | | | | | | [place], [place] | | | | | | [address] | | | | | | [phone] | | | +--------+ + + + [...]
--- OUTSIDE RECORDS SUMMARY | ~2019-05-18 | XMS | Encounter Summary ---
Demographics + + + | Address | GENERAL DELIVERY | | | [place] [address] | + + + | Home Phone [...] Team Providers + +------+ + | Care Calculus Teacher Name | Role | Phone | + +------+ + PCP | Unavailable | + +------+ + Reason for Visit + + + | Reason | Comments | + + + | Blood Test Results | Outside labs from [facility] 06/08/14. | + + + Encounter Details +--------+ + + + + | Date | Type | Department | Care Team | Description | +--------+ + + + + | 06/13/ | Documentati | Digestive Health | Jeancarlos Marley MD | Blood Test Results | | 2014 | on | Center at [facility] [address] | [address] | (Outside labs from | | | | [address] | [place], [place] | [facility] | | | | Mailcode: OC8D | [address] | 06/08/14.) | | | | [facility] | [phone] | | | | | and Healing, | | | | | | Building [address] | | | | | | [place], [place] | | | | | | [address] | | | | | | [phone] | | | +--------+ + + + [...] | + +---------+ + + | NON [facility] | | | | + +---------+ + + documented in this encounter Visit Diagnoses Not on filedocumented in this encounter"
--- OUTSIDE RECORDS SUMMARY | ~2019-05-18 | XMS | Encounter Summary ---
Demographics + + + | Address | GENERAL DELIVERY | | | [place] [address] | + + + | Home Phone [...] Providers + +------+ + | Care Food Quality Tester Name | Role | Phone | [...] of | | | | at [facility] 3rd Floor | | Hepatic Coma | | | | [address] | | | | | | Loop [place], [place] | | | | | | [address] | | | | | | [phone] | | | +--------+------+ + + + [...] | + + + + + | [facility] | [address] | [place] [address] | | | PATHOLOGY | [address] | | | + + + + + | [facility] | [address] | [place] [address] | | | PATHOLOGY | [address] [...] | + + + + + | [facility] | [address] | [place] [address] | | | PATHOLOGY | [address] | | | + + + + + | [facility] DEPARTMENT OF | [address] | [place] [address] | | | PATHOLOGY | [address] [...] | + + + + + | [facility] | [address] | [place] [address] | | | PATHOLOGY | [address] | | | + + + + + | [facility] | [address] | [place] [address] | | | PATHOLOGY | [address] [...] Performed At | + + + | [id number] Estimated GFR > 60 mL/min/1.73 sq m if non- | [facility] | | [place]ij[place] [id number] Estimated GFR > 60 mL/min/1.73 sq m if | DEPARTMENT OF | | [place] GFR is estimated using the MDRD equation [...] + + + | [facility] DEPARTMENT | [address] | [place] [address] | | | PATHOLOGY | [address] | | | + + + + + | [facility] | [address] | [place] [address] | | | PATHOLOGY | [address] | | | + + + + + documented in this encounter Visit Diagnoses + + | Diagnosis | + + | Chronic hepatitis C without mention of hepatic coma | + + documented in this encounter"
--- OUTSIDE RECORDS SUMMARY | ~2019-05-18 | XMS | Encounter Summary ---
Demographics + + + | Address | GENERAL DELIVERY | | | [place] [address] | + + + | Home Phone [...] Team Providers + +------+ + | Care Microsoft Systems Engineer Name | Role | Phone [...] | | | Ave Mailcode: CH6D | [place], [place] | | | | | [facility] | [address] | | | | | and Healing, | [phone] | | | | | [facility] | | | | | | Floor [place], [place] | | | | | | [address] | | | | | | [phone] | | | +--------+ + + + [...]
--- OUTSIDE RECORDS SUMMARY | ~2019-05-18 | XMS | Encounter Summary ---
Demographics + + + | Address | GENERAL DELIVERY | | | [place] [address] | + + + | Home Phone [...] Team Providers + +------+ + | Care Day Guard Name | Role | Phone | + [...] | | | | [address] | [place], [place] | | | | | Mailcode: Center | [address] | | | | | for Health and | [phone] | | | | | [facility] [address] | | | | | | [place], [place] | | | | | | [address] | | | | | | [phone] | | | +--------+ + + + [...] + + | [facility] | [address] | [place] [address] | | | PATHOLOGY | [address] | | | + + + + + | [facility] | [address] | [place] [address] | | | PATHOLOGY | [address] [...] + + | [facility] | [address] | [place] [address] | | | PATHOLOGY | [address] | | | + + + + + | [facility] | [address] | [place] [address] | | | PATHOLOGY | [address] [...] Performed At | + + + | [id number] Estimated GFR > 60 mL/min/1.73 sq m if non- | [facility] | | [place] [id number] Estimated GFR > 60 mL/min/1.73 sq m [...] | + + + + + | [facility] DEPARTMENT | [address] | [place] [address] | | | PATHOLOGY | [address] | | | + + + + + | [facility] | [address] | [place] [address] | | | PATHOLOGY | [address] | | | + + + + + documented in this encounter Visit Diagnoses + + | Diagnosis | + + | Chronic hepatitis C without mention of hepatic coma - Primary | + + documented in this encounter"
--- OUTSIDE RECORDS SUMMARY | ~2019-05-18 | XMS | Encounter Summary ---
Demographics + + + | Address | GENERAL DELIVERY | | | [place] [address] | + + + | Home Phone [...] Providers + +------+ + | Care Car Park Attendant Name | Role | Phone | [...] | | | URINARY | [place] | [address] | | | | | RETENTION | STATE | Ave | | | | | | HOSPITAL | [place], [place] | | | | | | [address] | [address] | | | | | | [address] | | | | | | | [place] | | | | | | | [address] | | | | | | | Phone: | | | | | | | [phone] | | | | | | | Fax: | | | | | | | [phone] | | +--------+--------+ + + + + Encounter Details +--------+ + + + + | Date | Type | Department | Care Team | Description | +--------+ + + + + | 03/28/ | Procedure | Urology Adult | Wang Canchola MD | Cystoscopy | | 2009 | | [address] | | | | | | Mailcode: CH10U | | | | | | [facility] | | | | | | and Healing, | | | | | | Building | | | | | | Floor [place], [place] | | | | | | [address] | | | | | | [phone] | | | +--------+ + + + [...] hands with soap and water or hand fur ironer. Clean the tip of the penis with [...] or contact PCP or call us at [phone] or after hours at [phone] for signs or symptoms of UTI. Urinary [...] for life. We will have our clinic straw hat presser the proper technique. He should be able [...] Resident Physician - Division of Urology Pager #[id number] Wang Fitzgerald Md - 1 05/28/2009 10:48 [...] | + +--------+ + + + | [facility] CYSTOURETHROSCOPY | Routin | 03/28/2010 | Unspecified [...] | + +--------+ + + + | [facility] CYSTOURETHROSCOPY | Routin | 03/28/2010 | Voiding | Results for this | | | e | | dysfunction | procedure are in the | | | | | | results section. | + +--------+ + + + documented in this encounter Results MN CYSTOURETHROSCOPY (03/28/2010) + + + | Narrative [...] [facility] | [address] | [place] [address] | | | OF CARE TESTS | | | | + + + + + documented in this encounter Visit Diagnoses + + | Diagnosis | + + | Retention of urine, unspecified | + + | Voiding dysfunction Unspecified disorder of urethra and urinary tract | + + documented in this encounter"
== END 2019-05-18 20:00 | disposition home or self-care (01) ==
LOC: ED 19:15
DX: Z00.8 Encounter for other general examination (principal)

== ENCOUNTER 2019-06-28 14:28 | Emergency (ER) | payer OTHER ==
[~2019-06-28] VITALS: Ht 177.8 cm; Wt 104.3 kg
== END 2019-06-28 17:30 | disposition left against medical advice (07) ==
LOC: ED 14:28
DX: Z53.21 Procedure and treatment not carried out due to patient leaving prior to being seen by health care provider (principal)
CPT/HCPCS: 99406

== ENCOUNTER 2019-08-04 17:08 | Emergency (ER) | payer OTHER ==
[~2019-08-04] VITALS: Ht 177.8 cm; Wt 104.3 kg
[2019-08-04] MEDS ORDERED: PREDNISONE20 MG PO (19:22)
[2019-08-04] MEDS ORDERED: ZITHROMAX250 MG PO (19:22)
== END 2019-08-04 20:25 | disposition home or self-care (01) ==
LOC: ED 17:08
DX: J44.1 Chronic obstructive pulmonary disease with (acute) exacerbation (principal); J06.9 Acute upper respiratory infection, unspecified; F17.200 Nicotine dependence, unspecified, uncomplicated; Z88.1 Allergy status to other antibiotic agents; Z88.2 Allergy status to sulfonamides; Z91.048 Other nonmedicinal substance allergy status; Z91.09 Other allergy status, other than to drugs and biological substances
CPT/HCPCS: 71046; 87502; 99283-25

== ENCOUNTER 2019-11-25 17:03 | Emergency (ER) | payer OTHER ==
[~2019-11-25] VITALS: Ht 177.8 cm; Wt 104.3 kg
--- OUTSIDE RECORDS SUMMARY | ~2019-11-25 | XMS | Encounter Summary ---
Demographics + + + | Address | GENERAL DELIVERY | | | [place] [address] | + + + | Home Phone | | + + + | Preferred Language | Unknown | + + + | Marital Status | Single | + + + | Sabianist Affiliation | NON | + + + | Race | White | + + + | Ethnic Group | Not or | + + + Author + + + | Author | [facility] | + + + | Organization | [facility] | + + + | Address | Unknown | + + + | Phone | Unavailable | + + + Support + + +---------+ + | Name | Relationship | Address | Phone | + + +---------+ + | Per None, PT | ECON | Unknown | Unavailable | + + +---------+ + Care Team Providers + +------+ + | Care Accordion Tuner Name | Role | Phone | + +------+ + | Etienne Barnes PA-C | PCP | | + +------+ + Encounter Details +--------+ + + + + | Date | Type | Department | Care Team | Description | +--------+ + + + + | 06/07/ | Document-Sc | UNKNOWN DEPARTMENT | Unknown . | | | 2014 | anned | [address] [facility] | | | | | | [address] | | | | | | [place], [place] | | | | | | [address] | | | +--------+ + + + [...] | + +--------+ + + + | LAB REPORTS | | 06/07/2014 | | Results for this | | | | 12:00 AM | | procedure are in the | | | | PST | | results section. | + +--------+ + + + documented in this encounter Results LAB REPORTS (06/07/2014 12:00 AM PST) + + + | Narrative | Performed At | + + + | | | | | | + + + + + | Procedure Note | + + | Inna Stark - 08/21/2014 3:05 PM PDT | + + documented in this encounter Visit Diagnoses Not on filedocumented in this encounter"
--- OUTSIDE RECORDS SUMMARY | ~2019-11-25 | XMS | Encounter Summary ---
Demographics + + + | Address | [address] | | | [place] [address] | + + + | Home Phone | | + + + | Preferred Language | Unknown | + + + | Marital Status | Single | + + + | Yazidism Affiliation | NON | + + + | Race | White | + + + | Ethnic Group | Not or | + + + Author + + + | Author | [facility] | + + + | Organization | [facility] | + + + | Address | Unknown | + + + | Phone | Unavailable | + + + Support + + +---------+ + | Name | Relationship | Address | Phone | + + +---------+ + | Per None, PT | ECON | Unknown | Unavailable | + + +---------+ + Care Team Providers + +------+ + | Care Product Trainer Name | Role | Phone | + +------+ + PCP | Unavailable | + +------+ + Reason for Visit + + + | Reason | Comments | + + + | New patient | | | consultation | | + + + Consultation (Routine) [...] Required | | hepatitis C | [address] | [address] | | | | | without | [address] | Ave | | | | | mention of | [place], | [place], [place] | | | | | hepatic coma | [place] [address] | [address] | | | | | Procedures | Phone: | Phone: | | | | | CONSULT TO | [phone] | [phone] | | | | | HEPATOLOGY | Fax: | Fax: | | | | | | [phone] | [phone] | +--------+ + + + + + Encounter Details +--------+---------+ + + + | Date | Type | Department | Care Team | Description | +--------+---------+ + + + | 06/16/ | Office | Digestive Health | Jeancarlos Marley MD | Chronic Hepatitis C | | 2007 | Visit | [facility] at [facility] [address] | [address] | without Mention of | | | | [address] | [place], [place] | Hepatic Coma | | | | for Health and | [address] | (Primary Dx) | | | | Healing, [address] | [phone] | | | | | [place], [place] | | | | | | [address] | | | | | | [phone] | | | +--------+---------+ + + + [...] + + + | Blood Pressure | 107/75 | 06/16/2007 8:01 AM | | | | | PST | | + + + + + | Pulse | 100 | 06/16/2007 8:01 AM | | | | | PST | | + + + + + | Temperature | 36.4 C (97.6 F) | 06/16/2007 8:01 AM | | | | | PST | | + + + + + | Respiratory Rate | 16 | 06/16/2007 8:01 AM | | | | | PST | | + + + + + | Oxygen Saturation | - | - | | + + + + + | Inhaled Oxygen | - | - | | | Concentration | | | | + + + + + | Weight | 160.8 kg (354 lb 9.6 | 06/16/2007 8:01 AM | | | | oz) | PST | | + + + + + | Height | 175.3 cm (5' 9") | 06/16/2007 8:01 AM | | | | | PST | | + + + + + | Body Mass Index | 52.37 | 06/16/2007 8:01 AM | | | | | PST | | + + + + + documented in this encounter Progress Notes Jeancarlos Marley - 06/16/2007 8:43 AM PSTI saw and examined the patient and discussed the case with Dr. Santos. I agree with the resident's findings and plan as written. Quang-Izabel Sykes - 06/16/2007 8:32 AM PSTFor matting of this note might be different from the original. Hepatology Clinic Note Peng Richardson is a 26 y.o. male with known PMH sig for HTN, anxiety, schizophrenia and He p C here to further discuss management and treatment options for Hep C. 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 Pt states that other than some vague occasional abdomin al pains in addition to occasional n/v, he does not have any further active sxs. Pt denies any prior hx of treatment of liver bx; has never had a hx of hematomesis or encephalopathy-- has never had an upper egd or colonoscopy. ROS: no chest pain, no sob, some occasionaly abdom pains and n/v; states that his mental he alth is currently very well-managed by Sydney Poole?, see hpi otherwise negative. PROBLEM LIST: 1) Hep C thought to be 2/2 ivdu with first time use of iv drugs in 2002: -per osh labs: ast 56, alt 117, alk phos 125, t b 0.28, alb 3.7 -most recent HCV count 2.08 IU/Ml from 04/23 2) HTN 3) Schizophrenia and anxiety: controlled with ability and buspar 4) Pt has already been vaccinated for Hep A and Hep B FAMILY: Neg for GI or liver cancers Pos for htn and DM SOCIAL: -No drug, etoh use x 3 years, including MJ -pt reports smoking 1 and 1/2 pack x 4 MONTHS-- currently using patch to try to quit Current outpatient medications Medication Sig Trazodone HCl 150 mg Oral Tablet None Entered Lisinopril 5 mg Oral Tablet take 1 tablet (5 mg) by oral route once daily Aripiprazole (ABILIFY) 10 mg Oral Tablet take 1 tablet (10 mg) by oral route once daily BUSPAR OR None Entered Exam: Blood pressure 107/75, pulse 100, temperature 97.6 F (36.4 C), temperature source Oral, resp. rate 16, height 1.753 m (5' 9"), weight 160.846 kg (354 lbs 9.6 oz). GEN: morbidly obese; no signs of acute distress; flat affect but appropriate to exam HEENT: perrl; no icterus seen HEART: rrr; no g/m/r Chest: cta in all lung areas Abd: very large, nontender to exam, with nl bs heard; numerous markings of striae is seen a long bilateral aspects of flank regions; no organomegaly can be appreciated Ext: no edema; PPI Neuro: ambulating well; symetric strength; ao x 3 BACK: there is no tenderness to palpation of the spine LABS: As outlined above IMAGES: NONE including no hx of US in the past A/P: Young 26 yo male w/ hx of hep C, genotype unknown with no prior liver bx, htn, schizophreni a, anxiety and morbid obesity who presents for further discussion regarding Hep C management and treatment. Based on pt's presentation of morbid obesity and hx of contraction of Hep C likely within t he last 3 years (started IVDU in 2002), pt would benefit at this time with focus delivered t o goals of lifestyle modification including wt loss and smoke cessation. Spent the majorit y of the apptment with the patient explaining that should he improve his body habitus and lo se perhaps approx 20-30 lbs by the next apptment (in one year), it would improve his chances of good response to medication tx, should he ever need it. Emphasis was delivered to daily exercise and healthy food consumption. Pt is advised to f/u in one year, at which point he can be reassessed to further consider liver bx at that time. PLAN: -ordered baseline labs to r/u autoimmune etiologies for abnormal LFTs; genotype ordered as well *pt will call back in approx 2 wks for labs results -ordered US of liver to gain baseline assessment at this time -pt to focus on wt loss over the next year -pt advised to cessate tobacco use -pt to f/u in one year for further consideration for liver bx needs The above plans were discussed with the pt as outlined above; pt stated understanding and a greement. The pt was staffed with and seen by Dr. Marley. documented in this encoun ter Plan of Treatment Not on filedocumented as of this encounter Procedures + +--------+ + + + | Procedure Name | Priori | Date/Time | Associated Diagnosis | Comments | | | ty | | | | + +--------+ + + + | US ABDOMEN COMPLETE | Routin | 08/21/2008 | Chronic Hepatitis | Results for this | | | e | 9:35 AM | C without Mention of | procedure are in the | | | | PDT | Hepatic Coma | results section. | + +--------+ + + + documented in this encounter Results US ABDOMEN COMPLETE (08/21/2008 9:35 AM PDT) + + + + + + | Component | Value | Ref Range | Performed | Pathologist | | | | | At | Signature | + + + + + + | US ABDOMEN | Ultrasound Abdomen | | | | | COMPLETE | Complete | | | | | | 08/21/08Technique: | | | | | | Real-time | | | | | | ultrasonography of the | | | | | | entire abdomen | | | | | | wasperformed.Comparison: | | | | | | 12/24/07.History: | | | | | | Evaluate for | | | | | | cirrhosis.Findings:The | | | | | | liver is homogeneous and | | | | | | demonstrates normal | | | | | | echogenicity | | | | | | andechotexture. No | | | | | | focal intrahepatic | | | | | | lesion is identified. | | | | | | Thegallbladder is | | | | | | normal. No intra or | | | | | | extrahepatic biliary | | | | | | dilatationis identified. | | | | | | Visualized portions | | | | | | of the pancreas are | | | | | | normal. Thespleen is | | | | | | mildly enlarged, | | | | | | measuring up to 14.6 cm | | | | | | in length.The right and | | | | | | left kidneys are normal, | | | | | | measuring 11.1 x 5.9 x | | | | | | 5.8 cmand 11.2 x 6.0 x 5 | | | | | | .7 cm, respectively. | | | | | | The urinary bladder | | | | | | isgrossly unremarkable. | | | | | | Visualized portions of | | | | | | the aorta and | | | | | | inferiorvena cava are | | | | | | normal.IMPRESSION:Normal | | | | | | abdominal ultrasound | | | | | | without evidence of | | | | | | hepatic cirrhosis | | | | | | orfocal intrahepatic | | | | | | lesion. Mild | | | | | | splenomegaly.I have | | | | | | personally viewed this | | | | | | procedure/exam and | | | | | | reviewed this | | | | | | report.Author: BANDAR | | | | | | Maria Guadalupe KIMReviewer: | | | | | | Clau RODRIGUEZ | | | | | | Maria GuadalupeSTATUS FINAL / DrJan | | | | | | Clau BAR | | | | | | PENDING FINAL APPROVAL / | | | | | | Dr. BANDAR VELASQUEZ | | | | | | PRELIMINARY - UNSIGNED / | | | | | | Dr. BANDAR KIM | | | | + + + + + + + + | Specimen | + + | | + + + +---------+ + + | Performing | Address | City/State/Zipcode | Phone Number | | Organization | | | | + +---------+ + + | [facility] DEPARTMENT OF | | | | | RADIOLOGY | | | | + +---------+ + + HEP C GENOTYPING (06/16/2007 8:55 AM PST) + + + + + + | Component | Value | Ref Range | Performed | Pathologist | | | | | At | Signature | + + + + + + | HEP C | TYPE 1B | | | | | GENOTYPE | | | | | + + + + + + | INTERP HEP | As per your request, we | | | | | C GENOTYPE | have completed a | | | | | | polymerase chain | | | | | | reaction (PCR)bases | | | | | | assay to determine the | | | | | | genotype of the | | | | | | hepatitis C virus | | | | | | speciespresent in the | | | | | | patient. For this assay, | | | | | | serum derived RNA is | | | | | | reversetranscribed with | | | | | | an HCV specific primer | | | | | | followed by multiplex | | | | | | PCRamplification (3 | | | | | | different reactions) | | | | | | with genotype-specific | | | | | | probes andfluorescent | | | | | | detection on an WALKER | | | | | | [id number] instrument. The | | | | | | real time | | | | | | PCRamplification plots | | | | | | of the patient sample | | | | | | and controls has been | | | | | | examinedand the clinical | | | | | | interpretation is | | | | | | detailed below.Infection | | | | | | with HCV genotype | | | | | | 1,4,5, or 6 isolates has | | | | | | been shown to be oneof | | | | | | several factors | | | | | | associated with a poorer | | | | | | virological response | | | | | | topharmacologic | | | | | | antiviral therapy. | | | | | | Patients with HCV | | | | | | genotype 1,4,5,or | | | | | | 6isolates may require | | | | | | lengthier durations of | | | | | | antiviral therapy to | | | | | | achievea sustained | | | | | | virological response. | | | | | | In addition to the | | | | | | presence of HCVgenotype | | | | | | 1,4,5,or 6 isolates, | | | | | | other poor prognostic | | | | | | indicators for | | | | | | asustained response to | | | | | | antiviral therapy | | | | | | include a high baseline | | | | | | viralload, the presence | | | | | | of hepatic fibrosis, and | | | | | | older age. A | | | | | | quantitativeHCV RNA-PCR | | | | | | viral load assay | | | | | | (test#8804) may | | | | | | therefore be | | | | | | clinicallyindicated. | | | | | | References:1.) | | | | | | Navjot Tinoco, | | | | | | Torri Berger, | | | | | | Ian Rodriguez, Perla, | | | | | | Annette Barnes J. | | | | | | (1999): Is am "A la | | | | | | Carte" combination of | | | | | | interferon catina-2b | | | | | | plusribavirin regimen | | | | | | possible for the first | | | | | | line treatment of | | | | | | patients withhepatitis | | | | | | C? Hepatology 31, | | | | | | 211-218. This test was | | | | | | developed and its | | | | | | performance | | | | | | characteristics | | | | | | determined bythe [facility] | | | | | | [facility] | | | | | | Laboratory. It has not | | | | | | been cleared or | | | | | | approvedby the Food and | | | | | | Drug Administration. FDA | | | | | | approval is not | | | | | | required forclinical use | | | | | | of the test, and | | | | | | therefore validation was | | | | | | done as requiredunder | | | | | | the requirements of the | | | | | | Clinical Laboratory | | | | | | Improvement Act dt9112. | | | | | | The [facility] | | | | | | Laboratory is a fully | | | | | | licensed and/ | | | | | | oraccredited clinical | | | | | | laboratory under CLIA, | | | | | | CAP, and the State of | | | | | | [place]. | | | | + + + + + + + + | Specimen | + + | | + + + + + + + | Performing | Address | City/State/Zipcode | Phone Number | | Organization | | | | + + + + + | [facility] | [place] [employer] | [place] [address] | | | GENETICS LABS | [address] | | | | | [address]VE. | | | + + + + + IRON SERUM AND TIBC (06/16/2007 8:55 AM PST) + +---------+ + + + | Component | Value | Ref Range | Performed | Pathologist | | | | | At | Signature | + +---------+ + + + | IRON SERUM | 51 | 40 - 150 ug/dL | | | + +---------+ + + + | IRON BIND | 483 (H) | 225 - 410 ug/dL | | | | CAP SERUM | | | | | + +---------+ + + + | % | 11 (L) | 20 - 50 % | | | | SATURATION | | | | | | TRANSFERRIN | | | | | | , SERUM | | | | | + +---------+ + + + + + | Specimen | + + | | + + + + + | Narrative | Performed At | + + + | Iron and TIBC, Serum Test performed by [facility] | | | [facility]. | | + + + + + + + + | Performing | Address | City/State/Zipcode | Phone Number | | Organization | | | | + + + + + | [facility] | [address] | [place] [address] | | | LABORATORY | | | | + + + + + FERRITIN (06/16/2007 8:55 AM PST) + +--------+ + + + | Component | Value | Ref Range | Performed | Pathologist | | | | | At | Signature | + +--------+ + + + | FERRITIN | 12 (L) | 24 - 336 ng/mL | | | + +--------+ + + + + + | Specimen | + + | | + + + + + | Narrative | Performed At | + + + | Reference Range change effective 03/08/07 | | | [facility] | | | [address] [place] [place], [place] | | | [address] | | + + + + + + + + | Performing | Address | City/State/Zipcode | Phone Number | | Organization | | | | + + + + + | [facility] | [address] | [place] [address] | | | LABORATORY | | | | + + + + + ANTI NUCLEAR AB SCREEN (06/16/2007 8:55 AM PST) + + + + + + | Component | Value | Ref Range | Performed | Pathologist | | | | | At | Signature | + + + + + + | CHUCKY SCREEN | Negative | Negative | | | | ON HEP | | | | | | 2,SERUM | | | | | + + + + + + + + | Specimen | + + | | + + + + + | Narrative | Performed At | + + + | Test performed by [facility]. | | + + + + + + + + | Performing | Address | City/State/Zipcode | Phone Number | | Organization | | | | + + + + + | [facility] | [address] | [place] [address] | | | LABORATORY | | | | + + + + + ANTI SMOOTH MUSCLE AB (06/16/2007 8:55 AM PST) + + + + + + | Component | Value | Ref Range | Performed | Pathologist | | | | | At | Signature | + + + + + + | ANTI-SMOOTH | Neg (1:20 dil)Comment: | Negative | | | | MUSCLE | Test performed by | | | | | | [facility] | | | | | | [facility]. | | | | + + + + + + + + | Specimen | + + | | + + + + + + + | Performing | Address | City/State/Zipcode | Phone Number | | Organization | | | | + + + + + | [facility] | [address] | [place] [address] | | | LABORATORY | | | | + + + + + [facility] - INR (PROTHROMBINTIME) (06/16/2007 8:55 AM PST) + + + + + + | [...] | | | | | | | (2.0-3.0)INR | | | | | | INR for most | | | | | | patients with mech. | | | | | | valves (2.5-3.5)INR | | | | + + + + + + + + | Specimen | + + | | + + + + + + + | Performing | Address | City/State/Zipcode | Phone Number | | Organization | | | | + + + + + | [facility] | [address] | [place] [address] | | | PATHOLOGY | [address] | | | + + + + + | [facility] | [address] | [place] [address] | | | PATHOLOGY | [address] | | | + + + + + [facility] - CBC AUTODIFF (06/16/2007 8:55 AM PST) + + + + + + | Component | Value | Ref Range | Performed | Pathologist | | | | | At | Signature | + + + + + + | WHITE CELL | See cmnt | 3.4 - 10.0 K/cu | [facility] | | | COUNT - [facility] | | mm | DEPARTMENT | | | | | | OF | | | | | | PATHOLOGY | | + + + + + + | RED CELL | See cmnt | 4.30 - 5.90 | [facility] | | | COUNT - [facility] | | M/cu mm | DEPARTMENT | | | | | | OF | | | | | | PATHOLOGY | | + + + + + + | HEMOGLOBIN, | See cmnt | 13.5 - 17.5 | [facility] | | | BLOOD - | | g/dL | DEPARTMENT | | | [facility] | | | OF | | | | | | PATHOLOGY | | + + + + + + | HEMATOCRIT | See cmnt | 40.5 - 52.5 % | [facility] | | | - [facility] | | | DEPARTMENT | | | | | | OF | | | | | | PATHOLOGY | | + + + + + + | [facility] - [facility] | See cmnt | 85.0 - 95.0 fL | [facility] | | | | | | DEPARTMENT | | | | | | OF | | | | | | PATHOLOGY | | + + + + + + | [facility] - [facility] | See cmnt | 28.5 - 32.3 pg | [facility] | | | | | | DEPARTMENT | | | | | | OF | | | | | | PATHOLOGY | | + + + + + + | [facility] - [facility] | See cmnt | 33.2 - 34.2 | [facility] | | | | | g/dL | DEPARTMENT | | | | | | OF | | | | | | PATHOLOGY | | + + + + + + | [facility] | See cmnt | 11.5 - 15.0 % | [facility] | | | | | | DEPARTMENT | | | | | | OF | | | | | | PATHOLOGY | | + + + + + + | PLATELET | See cmnt | 150 - 420 K/cu | [facility] | | | COUNT, | | mm | DEPARTMENT | | | BLOOD - [facility] | | | OF | | | | | | PATHOLOGY | | + + + + + + | MPV-[facility] | See cmnt | 7.4 - 10.4 fL | [facility] | | | | | | DEPARTMENT | | | | | | OF | | | | | | PATHOLOGY | | + + + + + + | NEUTROPHIL | See cmnt | 48 - 65 % | [facility] | | | (%) - [facility] | | | DEPARTMENT | | | | | | OF | | | | | | PATHOLOGY | | + + + + + + | LYMPHOCYTE | See cmnt | 26 - 41 % | [facility] | | | (%) - [facility] | | | DEPARTMENT | | | | | | OF | | | | | | PATHOLOGY | | + + + + + + | MID-RANGE | See cmnt | 7 - 15 % | [facility] | | | (%) - [facility] | | | DEPARTMENT | | | | | | OF | | | | | | PATHOLOGY | | + + + + + + | NEUTROPHIL | See cmnt | 2.2 - 5.2 K/cu | [facility] | | | ABSOLUTE - | | mm | DEPARTMENT | | | [facility] | | | OF | | | | | | PATHOLOGY | | + + + + + + | LYMPHOCYTE | See cmnt | 1.6 - 2.6 K/cu | [facility] | | | ABSOLUTE - | | mm | DEPARTMENT | | | [facility] | | | OF | | | | | | PATHOLOGY | | + + + + + + | MID-RANGE | See cmnt | <2.1 K/cu mm | [facility] | | | ABSOLUTE - | | | DEPARTMENT | | | [facility] | | | OF | | | | | | PATHOLOGY | | + + + + + + + + | Specimen | + + | | + + + + + | Narrative | Performed At | + + + | Sent to [facility]. | [facility] | | | DEPARTMENT OF | | | PATHOLOGY | + + + + + + + + | Performing | Address | City/State/Zipcode | Phone Number | | Organization | | | | + + + + + | [facility] | [facility] | [place] [address] | | | PATHOLOGY | [address] | | | + + + + + | [facility] | [facility] | [place] [address] | | | PATHOLOGY | [address] | | | + + + + + documented in this encounter Visit Diagnoses + + | Diagnosis | + + | Chronic hepatitis C without mention of hepatic coma - Primary | + + documented in this encounter
--- OUTSIDE RECORDS SUMMARY | ~2019-11-25 | XMS | Encounter Summary ---
Demographics + + + | Address | [address] | | | [place] [address] | + + + | Home Phone | | + + + | Preferred Language | Unknown | + + + | Marital Status | Single | + + + | Islam Affiliation | NON | + + + | Race | White | + + + | Ethnic Group | Not or | + + + Author + + + | Author | [facility] | + + + | Organization | [facility] | + + + | Address | Unknown | + + + | Phone | Unavailable | + + + Support + + +---------+ + | Name | Relationship | Address | Phone | + + +---------+ + | Per None, PT | ECON | Unknown | Unavailable | + + +---------+ + Care Team Providers + +------+ + | Care Account Manager [employer] Name | Role | Phone | + [...] | | | URINARY | [place] | [address] | | | | | RETENTION | STATE | Ave | | | | | | HOSPITAL | [place], [place] | | | | | | [address] | [address] | | | | | | [address] | | | | | | | [place] | | | | | | | [address] | | | | | | | Phone: | | | | | | | [phone] | | | | | | | Fax: | | | | | | | [phone] | | +--------+--------+ + + + + Encounter Details +--------+ + + + + | Date | Type | Department | Care Team | Description | +--------+ + + + + | 03/28/ | Procedure | Urology Adult | Wang Canchola MD | Cystoscopy | | 2009 | | [address] | | | | | | Mailcode: [id number] | | | | | | [facility] | | | | | | and Healing, | | | | | | Building | | | | | | Floor [place], [place] | | | | | | [address] | | | | | | [phone] | | | +--------+ + + + [...] tube (catheter) at regular times during t he day. Why CIC? CIC is used to [...] hands with soap and water or hand yarder puncher. Clean the tip of the penis with [...] or contact PCP or call us at [phone] or after hours at [phone] for signs or symptoms of UTI. Urinary [...] better. documented in this encounter Progress Notes Ghanshyam Bass Rn - 03/28/2010 11:58 AM PSTUrology Patient Instructions [...] Julian Paz MD - 03/28/2010 11:18 AM PSTFormmarianning o f this note might be different [...] for life. We will have our clinic hospital social worker the proper technique. He should be able to do this on his own and we encouraged him to cath at least 4x/daily. Nehemiah sylvester gave him a dose of Cipro post cystoscopy today. We will see him back in one year with a r enal ultrasound and labs to ensure no upper tract damage. This patient was seen and examined with Dr. Canchola who agrees with the assessment and plan. Julian Rodriguez MD Resident Physician - Division of Urology Pager #[phone] Wang Fitzgerald Md - 1 05/28/2009 10:48 AM MELISSAPeng Richardson is a 29 y.o. male I saw and examined along with Dr. Radha Rodriguez . I reviewed the relevant past medical history, social history, and medications. I agree with the assessment and plan as outlined in the medical record and reviewed by me. I was present for the entire procedure Violeta Avery 03/28/2010 10:07 AM PSTUA (POC) done per [...] | + +--------+ + + + | [place] CYSTOURETHROSCOPY | Routin | 03/28/2010 | Unspecified [...] | + +--------+ + + + | [place] CYSTOURETHROSCOPY | Routin | 03/28/2010 | Voiding | Results for this | | | e | | dysfunction | procedure are in the | | | | | | results section. | + +--------+ + + + documented in this encounter Results [place] CYSTOURETHROSCOPY (03/28/2010) + + + | Narrative [...] + + + + | [facility] | [address] [facility] | [place] [address] | | | OF CARE TESTS | | | | + + + + + documented in this encounter Visit Diagnoses + + | Diagnosis | + + | Retention of urine, unspecified | + + | Voiding dysfunction Unspecified disorder of urethra and urinary tract | + + documented in this encounter"
--- OUTSIDE RECORDS SUMMARY | ~2019-11-25 | XMS | Encounter Summary ---
Demographics + + + | Address | [address] | | | [place] [address] | + + + | Home Phone [...] Author + + + | Author | [facility] | + + + | Organization | [facility] | + + + | Address | Unknown | + + + | Phone | Unavailable | + + + Support + + +---------+ + | Name | Relationship | Address | Phone | + + +---------+ + | Per None, PT | ECON | Unknown | Unavailable | + + +---------+ + Care Team Providers + +------+ + | Care Machine Icer Name | Role | Phone | + [...] | Center [address] | [address] | | | | | Ave Mailcode: CH6D | [place], [place] | | | | | [facility] | [address] | | | | | and Healing, | [phone] | | | | | [facility] | | | | | | Floor [place], [place] | | | | | | [address] | | | | | | [phone] | | | +--------+ + + + [...]
--- OUTSIDE RECORDS SUMMARY | ~2019-11-25 | XMS | Encounter Summary ---
Demographics + + + | Address | GENERAL DELIVERY | | | [place] [address] | + + + | Home Phone | | + + + | Preferred Language | Unknown | + + + | Marital Status | Single | + + + | Yazdanism Affiliation | NON | + + + | Race | White | + + + | Ethnic Group | Not or | + + + Author + + + | Author | [facility] | + + + | Organization | [facility] | + + + | [...] Providers + +------+ + | Care Supervisor Drilling And Shooting Name | Role | Phone | + [...] Required | | hepatitis C | [address] | [address] | | | | | without | [address] | Ave | | | | | mention of | [place], | [place], [place] | | | | | hepatic coma | [place] [address] | [address] | | | | | Procedures | Phone: | Phone: | | | | | CONSULT TO | [phone] | [phone] | | | | | HEPATOLOGY | Fax: | Fax: | | | | | | [phone] | [phone] | +--------+ + + + + + Encounter Details +--------+---------+ + + + | Date | Type | Department | Care Team | Description | +--------+---------+ + + + | 01/25/ | Office | Digestive Health | Jeancarlos Rich MD | Chronic hepatitis C | | 2011 | Visit | Center at [facility] [address] | [address] | without mention of | | | | [address] | [place], [place] | hepatic coma | | | | for Health and | [address] | (Primary Dx) | | | | Healing, Building 2 | [phone] | | | | | [place], [place] | | | | | | [address] | | | | | | [phone] | | | +--------+---------+ + + + [...] of this note might be different from th e original. HEPATOLOGY NEW PATIENT VISIT Last seen over [...] infected in 2002 1.4)Obese 1.5) committed to [facility] in [place] until 2014 1.6 ) no liver biopsy to date 1.7) vaccinated for HAV/HBV in the past PAST MEDICAL HISTORY 2) HTN 3) Schizophrenia and anxiety:now committed to [facility] 4) obesity Current Outpatient [...] interim he has been committed to the [facility] facility. At this time he has no clinical evidence of cirrhosis. Unfortunat birgit the current HCV treatment regimen still includes interferon, which will exacerbate any u nderlying psychiatric issues. Unless he can be safely watched and protected in the [facility], there will not be a way to use interferon-based therapy. It would be unreasonable to consider a liver biopsy (can be done in [place] thru radiology, ie ultrasound guided) to asses s degree of liver fibrosis, before even contemplating any therapy. Recommend thru Drs. Robin/Mike patients get the followin. CMP, CBC, plts, diff, INR 2. Decide if patient can be treated safely in [facility] with interferon regimen. If possible, would recommend liver biopsy (in [place]) and then will results in hand return to [facility] us. 3) If interferon-based therapy is deemed too [...]
--- OUTSIDE RECORDS SUMMARY | ~2019-11-25 | XMS | Encounter Summary ---
Demographics + + + | Address | GENERAL DELIVERY | | | [place] [address] | + + + | Home Phone | | + + + | Preferred Language | Unknown | + + + | Marital Status | Single | + + + | Christian Affiliation | NON | + + + [...] Team Providers + +------+ + | Care Exercise Scientist Name | Role | Phone | + +------+ + PCP | Unavailable | + +------+ + Encounter Details +--------+ + + + + | Date | Type | Department | Care Team | Description | +--------+ + + + + | 06/14/ | Document-Sc | Digestive Health | Jeancarlos Marley MD | | | 2015 | anned | Center at [facility] [address] | [address] | | | | | [address] | [place], [place] | | | | | [facility] Health and | [address] | | | | | [facility] 2 | [phone] | | | | | [place], [place] | | | | | | [address] | | | | | | [phone] | | | +--------+ + + + [...] + + documented in this encounter Results HEPATOCELLULAR CARCINOMA SCREENING (06/14/2014 12:00 AM PST) + + + | Narrative | Performed At | + + + | | | + + + documented in this encounter Visit Diagnoses Not on filedocumented in this encounter"
--- OUTSIDE RECORDS SUMMARY | ~2019-11-25 | XMS | Encounter Summary ---
Demographics + + + | Address | GENERAL DELIVERY | | | [place] [address] | + + + | Home Phone | | + + + | Preferred Language | Unknown | + + + | Marital Status | Single | + + + | Hindu Affiliation | NON | + + + [...] Providers + +------+ + | Care Railroad Shop Inspector Name | Role | Phone | [...] | Appointment | | 2009 | | [address] | | | | | | Mailcode: CH10U | | | | | | [facility] | | | | | | and Healing, | | | | | | | | | | | | Floor [place], [place] | | | | | | [address] | | | | | | [phone] | | | +--------+ + + + [...]
--- OUTSIDE RECORDS SUMMARY | ~2019-11-25 | XMS | Encounter Summary ---
Demographics + + + | Address | GENERAL DELIVERY | | | [place] [address] | + + + | Home Phone [...] Team Providers + +------+ + | Care Child Welfare Worker Name | Role | Phone | + +------+ + | Jae Robin MD | PCP | | + +------+ + Reason for Visit + + + | Reason | Comments | + + + | Phone communication | | + + + Encounter Details +--------+ + + + + | Date | Type | Department | Care Team | Description | +--------+ + + + + | 03/13/ | Telephone | Urology Adult | Wang Canchola MD | Phone communication | | 2009 | | [address] | | | | | | Mailcode: CH10U | | | | | | [facility] | | | | | | and Healing, | | | | | | Building , 10th | | | | | | Floor [place], [place] | | | | | | [address] | | | | | | [phone] | | | +--------+ + + + [...]
--- OUTSIDE RECORDS SUMMARY | ~2019-11-25 | XMS | Encounter Summary ---
Demographics + + + | Address | GENERAL DELIVERY | | | [place] [address] | + + + | Home Phone [...] Author + + + | Author | [facility] | + + + | Organization | [facility] | + + + | Address | Unknown | + + + | Phone | Unavailable | + + + Support + + +---------+ + | Name | Relationship | Address | Phone | + + +---------+ + | Per None, PT | ECON | Unknown | Unavailable | + + +---------+ + Care Team Providers + +------+ + | Care Boat Carpenter Name | Role | Phone | + [...] [address] | [address] | teaching, guidance, | | | | Mailcode: CH10U | [place], [place] | and counseling | | | | [facility] | [address] | | | | | and Healing, | [phone] | | | | | [facility] | | | | | | Floor [facility] [place] | | | | | | [address] | | | | | | [phone] | | | +--------+ + + + [...]
--- OUTSIDE RECORDS SUMMARY | ~2019-11-25 | XMS | Encounter Summary ---
Demographics + + + | Address | GENERAL DELIVERY | | | [place] [address] | + + + | Home Phone | | + + + | Preferred Language | Unknown | + + + | Marital Status | Single | + + + | Baptism Affiliation | NON | + + + [...] Team Providers + +------+ + | Care International Sales Manager Name | Role | Phone | [...] Required | | hepatitis C | [address] | [address] | | | | | without | [address] | Ave | | | | | mention of | [place], | [place], [place] | | | | | hepatic coma | [place] [address] | [address] | | | | | Procedures | Phone: | Phone: | | | | | CONSULT TO | [phone] | [phone] | | | | | HEPATOLOGY | Fax: | Fax: | | | | | | [phone] | [phone] | +--------+ + + + + + Encounter Details +--------+---------+ + + + | Date | Type | Department | Care Team | Description | +--------+---------+ + + + | 01/25/ | Office | Digestive Health | Jeancarlos Rich MD | Chronic hepatitis C | | 2011 | Visit | Center at [facility] [address] | [address] | without mention of | | | | [address] | [place], [place] | hepatic coma | | | | for Health and | [address] | (Primary Dx) | | | | Healing, Building 2 | [phone] | | | | | [place], [place] | | | | | | [address] | | | | | | [phone] | | | +--------+---------+ + + + [...] infected in 2002 1.4)Obese 1.5) committed to [facility] in [place] until 2014 1.6 ) no liver biopsy to date 1.7) vaccinated for HAV/HBV in the past PAST MEDICAL HISTORY 2) HTN 3) Schizophrenia and anxiety:now committed to [facility] 4) obesity Current Outpatient [...] interim he has been committed to the [facility] facility. At this time he has no clinical evidence of cirrhosis. Unfortunat birgit the current HCV treatment regimen still includes interferon, which will exacerbate any u nderlying psychiatric issues. Unless he can be safely watched and protected in the [facility], there will not be a way to use interferon-based therapy. It would be unreasonable to consider a liver biopsy (can be done in [place] thru radiology, ie ultrasound guided) to asses s degree of liver fibrosis, before even contemplating any therapy. Recommend thru Drs. Robin/Mike patients get the followin. CMP, CBC, plts, diff, INR 2. Decide if patient can be treated safely in [facility] with interferon regimen. If possible, would recommend liver biopsy (in [place]) and then will results in hand return to [facility]. 3) If interferon-based therapy is deemed [...]
--- OUTSIDE RECORDS SUMMARY | ~2019-11-25 | XMS | Encounter Summary ---
Demographics + + + | Address | GENERAL DELIVERY | | | [place] [address] | + + + | Home Phone [...] Team Providers + +------+ + | Care Exchange Consultant Name | Role | Phone | + +------+ + | Jae Robin MD | PCP | | + +------+ + Reason for Visit + + + | Reason | Comments | + + + | New patient | | | consultation | | + + + | Retention of urine | | + + + Consultation (Routine) [...] | | | URINARY | [place] | [address] | | | | | RETENTION | STATE | Ave | | | | | | HOSPITAL | [place], [place] | | | | | | [address] | [address] | | | | | | [address] | | | | | | | [place], [place] | | | | | | | [address] | | | | | | | Phone: | | | | | | | [phone] | | | | | | | Fax: | | | | | | | [phone] | | +--------+--------+ + + + + Encounter Details +--------+---------+ + + + | Date | Type | Department | Care Team | Description | +--------+---------+ + + + | 03/07/ | Office | Urology Adult | Wang Canchola MD | Unspecified | | 2009 | Visit | [address] | | retention of urine; | | | | Mailcode: CH10U | | Voiding dysfunction | | | | [facility] | | | | | | and Healing, | | | | | | Building | | | | | | Floor [facility] [place] | | | | | | [address] | | | | | | [phone] | | | +--------+---------+ + + + [...] + + + | Blood Pressure | 123/80 | 03/07/2010 10:19 AM | | | | | PDT | | + + + + + | Pulse | 70 | 03/07/2010 10:19 AM | | | | | PDT [...] + + + + | Weight | 143.7 kg (316 lb | 03/07/2010 10:19 AM | | | | 12.8 oz) | PDT | | + + + + + | Height | - | - | | + + + + + | Body Mass Index | 46.78 | 06/16/2007 8:01 AM | | | | | PST | | + + + + + documented in this encounter Progress Notes Wang Canchola Md - 03/07/2010 11:44 AM Tom Richardson is a 29 y.o. male I saw and ex amined along with Dr. Zachary Granados . I reviewed the relevant past medical history, social history, and medications. I agree with the assessment and plan as outlined in the medical record and reviewed by me. .letsig Zachary Rodriguez MD - 03/07/2010 11:27 AM PDTUROLOGY CLINIC PROGRESS NOTE: Author; Zachary Granados MD Subjective: Peng Richardson is a 29 y.o. Male with a history of severe neurogenic/atonic bladder who pr esents with a chief complaint of urinary incontinence and retention. His problem started 4 years ago when he was on a 3 week methamphetamine binge and then fell asleep for 3 days. He woke up with a distended painful bladder and has since had little control. He is able to f eel when his bladder is full, but cannot void spontaneously. Eventually he says that his bl adder goes into spasm and he is incontinent. He is currently an inpatient in the [facility] for schizo-affective disorder. Since the onset of his urinary dysfunction, he h as intermittently done CIC himself but now his nurses have taken over the task. Approximate ly 3 months ago he reports what sounds like the creation of a false passage during CIC, with copious blood and pain on catheterization without urine return. Since then he thinks that sometimes the catheter goes through the false passage. In the last few months he has had a linares placed several times but has self-discontinued the catheter on 3 occasions (with ballo on inflated). He removes his catheters because he reports a "burning, spasmy" suprapubic pa in. He currently has a catheter in that was placed yesterday. He is here for discussion of a long-term solution. Objective: Wt 143.7 kg (316 lbs 12.8 oz)( < 3 %ile), BP 123/80, Pulse 70. Physical Exam: General: Alert and oriented Abdomen: Soft, nontender, nondistended : linares in place with clear urine Assessment and Plan: 29 yr old man with schizoaffective disorder and neurogenic/atonic bl adder, currently with indwelling linares since yesterday but with multiple episodes of trauma in last months including likely false passage on traumatic CIC and multiple traumatic linares removals. - his current catheter should stay in for several weeks to allow healing of his urethra - ditropan 5mg BID for bladder spasms - collect urine culture today for probably infection - return to clinic in 2 weeks for cystoscopic evaluation of urethra and bladder 10 11:27 AM PDTdocumented in this encounter Plan of Treatment Not on filedocumented as of this encounter Procedures + +--------+ + + + | Procedure Name | Priori | Date/Time | Associated Diagnosis | Comments | | | ty | | | | + +--------+ + + + | CULTURE, URINE BACTI | Routin | 03/07/2010 | Unspecified | Results for this | | | e | 11:06 AM | retention of urine | procedure are in the | | | | PDT | Voiding dysfunction | results section. | + +--------+ + + + documented in this encounter Results CULTURE, URINE BACTI (03/07/2010 11:06 AM PDT) + + + + + + | Component | Value | Ref Range | Performed | Pathologist | | | | | At | Signature | + + + + + + | SOURCE BODY | Single Cath Urine | | [facility] | | | SITE | | | REGIONAL | | | | | | LAB-MICRO | | + + + + + + | CULTURE | Urine Culture | | [facility] | | | RESULT | | | REGIONAL | | | | Source...............: | | LAB-MICRO | | | | Single Cath Urine | | | | | | Culture: Final | | | | | | Report: No growth | | | | | | Final Report | | | | | | Resulted: 03/09/10 | | | | | | [facility] [address] | | | | | | Way Lab) | | | | | | [facility] [address] | | | | | | [address] | | | | [address] | | | | | | [place] [address] | | | | | | [place] [address] | | | | + + + + + + + + | Specimen | + + | Urine - Catheter - | | single | + + + + + + + | Performing | Address | City/State/Zipcode | Phone Number | | Organization | | | | + + + + + | [facility] | [address] [facility] | [place] [address] | | | LAB-MICRO | | | | + + + + + documented in this encounter Visit Diagnoses + + | Diagnosis | + + | Retention of urine, unspecified | + + | Voiding dysfunction Unspecified disorder of urethra and urinary tract | + + documented in this encounter
--- OUTSIDE RECORDS SUMMARY | ~2019-11-25 | XMS | Encounter Summary ---
Demographics + + + | Address | GENERAL DELIVERY | | | [place] [address] | + + + | Home Phone | | + + + | Preferred Language | Unknown | + + + | Marital Status | Single | + + + | Scientologist Affiliation | NON | + + + [...] Team Providers + +------+ + | Care Summer Law Clerk Name | Role | Phone | + +------+ + PCP | Unavailable | + +------+ + Reason for Visit +--------+ + | Reason | Comments | +--------+ + | Other | Returning your call. | +--------+ + Encounter Details +--------+ + + + + | Date | Type | Department | Care Team | Description | +--------+ + + + + | 06/21/ | Telephone | Digestive Health | Jeancarlos Marley MD | Other (Returning | | 2007 | | Center at [facility] [address] | [address] | your call.) | | | | [address] | [facility] [place] | | | | | for Health and | [address] | | | | | [facility], Building 2 | [phone] | | | | | [place], [place] | | | | | | [address] | | | | | | [phone] | | | +--------+ + + + [...]
--- OUTSIDE RECORDS SUMMARY | ~2019-11-25 | XMS | Encounter Summary ---
Demographics + + + | Address | GENERAL DELIVERY | | | [place] [address] | + + + | Home Phone | | + + + | Preferred Language | Unknown | + + + | Marital Status | Single | + + + | Christianity Affiliation | NON | + + + | Race | White | + + + | Ethnic Group | Not or | + + + Author + + + | Author | [facility] | + + + | Organization | [facility] | + + + | Address | Unknown | + + + | Phone | Unavailable | + + + Support + + +---------+ + | Name | Relationship | Address | Phone | + + +---------+ + | Per None, PT | ECON | Unknown | Unavailable | + + +---------+ + Care Team Providers + +------+ + | Care Group Billing Coordinator Name | Role | Phone | [...] | | | | | retention | [place] | [address] | | | | | Urinary | STATE | Ave | | | | | Retention | HOSPITAL | [place], [place] | | | | | Procedures | [address] | [address] | | | | | REQUEST TO | [address] | Phone: | | | | | SURGERY | [place] | [phone] | | | | | [employer]ANCH HEL[place] | [address] | Fax: | | | | | [place] | Phone: | [phone] | | | | | INCISE/DRAIN | [phone] | | | | | | BLADDER | Fax: | | | | | | suprapubic | [phone] | | | | | | cystostomy [...] | | | | | | | [address] | | | | | | | [address] | | | | | | | [place], [place] | | | | | | | [address] | +--------+--------+ + + + + Encounter [...] | | | | Mailcode: CH10U | [place], [place] | | | | | [facility] | [address] | | | | | and Healing, | [phone] | | | | | [facility] | | | | | | Floor [place], [place] | | | | | | [address] | | | | | | [phone] | | | +--------+ + + + [...] Armand Ordonez MD - 01/22/2011 12:51 PM [id number], former patient of Dr. Canchola, is an inpat ient at [facility] for at least 3 more years. [...] | + +--------+ + + + | LA CYSTOURETHROSCOPY | Routin | 01/22/2011 | Urinary retention | Results for this | | | e | | | procedure are in the | | | | | | results section. | + +--------+ + + + documented in this encounter Results LA CYSTOURETHROSCOPY (01/22/2011) + + + | Narrative [...]
--- OUTSIDE RECORDS SUMMARY | ~2019-11-25 | XMS | Encounter Summary ---
Demographics + + + | Address | GENERAL DELIVERY | | | [place] [address] | + + + | Home Phone [...] Team Providers + +------+ + | Care Banker Mason Name | Role | Phone | + [...] abd u/s | | 2007 | | [place] at [facility] [address] | [address] | order faxed/mailed) | | | | [address] [facility] | [place], [place] | | | | | for Health and | [address] | | | | | [facility] 2 | [phone] | | | | | [facility] [place] | | | | | | [address] | | | | | | [phone] | | | +--------+ + + + [...]
--- OUTSIDE RECORDS SUMMARY | ~2019-11-25 | XMS | Encounter Summary ---
Demographics + + + | Address | GENERAL DELIVERY | | | [place] [address] | + + + | Home Phone | | + + + | Preferred Language | Unknown | + + + | Marital Status | Single | + + + | Confucianist Affiliation | NON | + + + [...] Team Providers + +------+ + | Care Eeg Technologist Name | Role | Phone | + +------+ + PCP | Unavailable | + +------+ + Reason for Visit +--------+ + | Reason | Comments | +--------+ + | Pain | | +--------+ + Encounter Details +--------+ + + + + | Date | Type | Department | Care Team | Description | +--------+ + + + + | 06/13/ | Telephone | Digestive Health | Jeancarlos Marley MD | Pain | | 2014 | | Center at [facility] [address] | [address] | | | | | [address] [place] | [facility] [place] | | | | | for Health and | [address] | | | | | Healing, Building [address] | [phone] | | | | | [place], [place] | | | | | | [address] | | | | | | [phone] | | | +--------+ + + + [...]
--- OUTSIDE RECORDS SUMMARY | ~2019-11-25 | XMS | Encounter Summary ---
Demographics + + + | Address | GENERAL DELIVERY | | | [place] [address] | + + + | Home Phone [...] Team Providers + +------+ + | Care Cathode Maker Name | Role | Phone | [...] Required | | hepatitis C | [address] | [address] | | | | | without | [address] | Ave | | | | | mention of | [place], | [place], [place] | | | | | hepatic coma | [place] [address] | [address] | | | | | Procedures | Phone: | Phone: | | | | | CONSULT TO | [phone] | [phone] | | | | | HEPATOLOGY | Fax: | Fax: | | | | | | [phone] | [phone] | +--------+ + + + + + Encounter Details +--------+---------+ + + + | Date | Type | Department | Care Team | Description | +--------+---------+ + + + | 02/27/ | Office | Digestive Health | Jeancarlos Rich MD | Chronic Hepatitis C | | 2007 | Visit | Center at [facility] [address] | [address] | without Mention of | | | | [address] | [place], [place] | Hepatic Coma | | | | for Health and | [address] | (Primary Dx) | | | | Healing, Building [address] | [phone] | | | | | [place], [place] | | | | | | [address] | | | | | | [phone] | | | +--------+---------+ + + + [...] + documented in this encounter Progress Notes Ayaka Jeancarlos - 02/28/2008 9:18 AM PDTFormatting of this [...] on filedocumented as of this encounter Results [facility] - INR (PROTHROMBINTIME) (02/28/2008 9:24 AM PDT) [...] + + + + + | [facility] | [address] | [place] [address] | | | PATHOLOGY | [address] | | | + + + + + | [facility] | [address] [place] [address] [address] | [place] [address] | | | PATHOLOGY | [address] | | | + + + + + [facility] - CBC AUTODIFF (02/28/2008 9:24 AM PDT) [...] + + + + + | [facility] | [address] | [place] [address] | | | PATHOLOGY | [address] | | | + + + + + | [facility] | [employer] [address] | [place] [address] | | | PATHOLOGY | [address] | | | + + + + + [facility] - COMPLETE METABOLIC SET (02/28/2008 9:24 AM [...] DEPARTMENT OF | [address] | [place] [address] | | | PATHOLOGY | [address] | | | + + + + + | [facility] | [address] | [place] [address] | | | PATHOLOGY | [address] | | | + + + + + documented in this encounter Visit Diagnoses + + | Diagnosis | + + | Chronic hepatitis C without mention of hepatic coma - Primary | + + documented in this encounter"
--- OUTSIDE RECORDS SUMMARY | ~2019-11-25 | XMS | Encounter Summary ---
Demographics + + + | Address | GENERAL DELIVERY | | | [place] [address] | + + + | Home Phone [...] Providers + +------+ + | Care Engine Repair Supervisor Name | Role | Phone | [...] | | | Ave Mailcode: CH6D | [place], [place] | | | | | [facility] Health | [address] | | | | | and Healing, | [phone] | | | | | [facility] | | | | | | Floor [place], [place] | | | | | | [address] | | | | | | [phone] | | | +--------+ + + + [...]
--- OUTSIDE RECORDS SUMMARY | ~2019-11-25 | XMS | Encounter Summary ---
Demographics + + + | Address | GENERAL DELIVERY | | | [place] [address] | + + + | Home Phone [...] Team Providers + +------+ + | Care Glass Enamel Mixer Name | Role | Phone | + +------+ + PCP | Unavailable | + +------+ + Reason for Visit +--------+ + | Reason | Comments | +--------+ + | Pain | | +--------+ + Encounter Details +--------+ + + + + | Date | Type | Department | Care Team | Description | +--------+ + + + + | 06/19/ | Telephone | Digestive Health | Jeancarlos Marley MD | Pain | | 2015 | | Center at [facility] [address] | [address] | | | | | [address] [place] | [facility] [place] | | | | | for Health and | [address] | | | | | Healing, Building 2 | [phone] | | | | | [place], [place] | | | | | | [address] | | | | | | [phone] | | | +--------+ + + + [...]
--- OUTSIDE RECORDS SUMMARY | ~2019-11-25 | XMS | Encounter Summary ---
Demographics + + + | Address | GENERAL DELIVERY | | | [place] [address] | + + + | Home Phone [...] Team Providers + +------+ + | Care Broommaker Name | Role | Phone | + [...] Abdominal pain | | 2007 | | [place] [address] [address] | [address] | (liver pain) | | | | [address] [place] | [place], [place] | | | | | for Health and | [address] | | | | | [facility], Building 2 | [phone] | | | | | [place], [place] | | | | | | [address] | | | | | | [phone] | | | +--------+ + + + [...] + | [place] DEPARTMENT OF | [address] | [place] [address] | | | PATHOLOGY | [address] | | | + + + + + | [place] DEPARTMENT OF | [address] | [place] [address] | | | PATHOLOGY | [address] [...] | + + + + + | [facility] DEPARTMENT OF | [address] | [place] [address] | | | PATHOLOGY | [address] | | | + + + + + | [facility] OF | [address] | [place] [address] | | | PATHOLOGY | [address] [...] Performed At | + + + | [id number] Estimated GFR > 60 mL/min/1.73 sq m if non- | [facility] | | Angolan [id number] Estimated GFR > 60 mL/min/1.73 sq m if | DEPARTMENT OF | | Angolan GFR is estimated using the MDRD equation [...] + + + + | [facility] | [address] | [place] [address] | | | PATHOLOGY | [address] | | | + + + + + | [facility] | [address] | [place] [address] | | | PATHOLOGY | [address] [...] spleen | | | | | | elbprhhz88.5 cm in | | | | | [...] | | + +---------+ + + | [facility] DEPARTMENT OF | | | | | [...]
--- OUTSIDE RECORDS SUMMARY | ~2019-11-25 | XMS | Encounter Summary ---
Demographics + + + | Address | GENERAL DELIVERY | | | [place] [address] | + + + | Home Phone | | + + + | Preferred Language | Unknown | + + + | Marital Status | Single | + + + | Muslim Affiliation | NON | + + + [...] Providers + +------+ + | Care Supervisor Fishing Name | Role | Phone | + +------+ + PCP | Unavailable | + +------+ + Encounter Details +--------+------+ + + + | Date | Type | Department | Care Team | Description | +--------+------+ + + + | 12/23/ | Lab | Laboratory at [facility] | | RUQ Abdominal Pain; | | 2007 | | [address] | | Chronic Hepatitis C | | | | [facility] | | without Mention of | | | | and Healing, | | Hepatic Coma | | | | Building [address] | | | | | | [place], [place] | | | | | | [address] | | | | | | [phone] | | | +--------+------+ + + + [...] [facility] [place] | [address] | [place] [address] | | | PATHOLOGY | [address] | | | + + + + + | [facility] | [address] | [place] [address] | | | PATHOLOGY | [address] [...] | [facility] | [address] [facility] | [place] [address] | | | PATHOLOGY | [address] | | | + + + + + | [facility] | [address] [facility] | [place] [address] | | | PATHOLOGY | [address] [...] | [facility] | [address] [facility] | [place] [address] | | | PATHOLOGY | [address] | | | + + + + + | [facility] | [address] [facility] | [place] [address] | | | PATHOLOGY | [address] [...] Performed At | + + + | [id number] Estimated GFR > 60 mL/min/1.73 sq m if non- | [facility] | | Chinese 357143 Estimated GFR > 60 mL/min/1.73 sq m if | DEPARTMENT OF | | Chinese GFR is estimated using the MDRD equation [...] + | [facility] | [address] [facility] | [place] [address] | | | PATHOLOGY | [address] | | | + + + + + | [facility] | [address] [facility] | [place] [address] | | | PATHOLOGY | [address] | | | + + + + + documented in this encounter Visit Diagnoses + + | Diagnosis | + + | RUQ abdominal pain Abdominal pain, right upper quadrant | + + | Chronic hepatitis C without mention of hepatic coma | + + documented in this encounter"
--- OUTSIDE RECORDS SUMMARY | ~2019-11-25 | XMS | Encounter Summary ---
Demographics + + + | Address | GENERAL DELIVERY | | | [place] [address] | + + + | Home Phone [...] Team Providers + +------+ + | Care Warp Spinner Name | Role | Phone | + [...] | | | | Mailcode: CH10U | [place], [place] | | | | | [facility] | [address] | | | | | and Healing, | [phone] | | | | | Building | | | | | | Floor [place], [place] | | | | | | [address] | | | | | | [phone] | | | +--------+ + + + [...]
--- OUTSIDE RECORDS SUMMARY | ~2019-11-25 | XMS | Encounter Summary ---
Demographics + + + | Address | GENERAL DELIVERY | | | [place] [address] | + + + | Home Phone [...] Team Providers + +------+ + | Care Dredge Hand Name | Role | Phone | [...] | | | | Mailcode: CH10U | [place], [place] | | | | | [facility] | [address] | | | | | and Healing, | [phone] | | | | | | | | | | | Floor [place], [place] | | | | | | [address] | | | | | | [phone] | | | +--------+ + + + [...]
--- OUTSIDE RECORDS SUMMARY | ~2019-11-25 | XMS | Encounter Summary ---
Demographics + + + | Address | GENERAL DELIVERY | | | [place] [address] | + + + | Home Phone [...] + + | 12/27/ | Telephone | [facility] | Jeancarlos Marley MD | | | 2007 | | Center at [facility] [address] | [address] | | | | | [address] | [place], [place] | | | | | [facility] and | [address] | | | | | [facility] 2 | [phone] | | | | | [place], [place] | | | | | | [address] | | | | | | [phone] | | | +--------+ + + + [...]
--- OUTSIDE RECORDS SUMMARY | ~2019-11-25 | XMS | Encounter Summary ---
Demographics + + + | Address | GENERAL DELIVERY | | | [place] [address] | + + + | Home Phone [...] Team Providers + +------+ + | Care Professional Nursing Tutor Name | Role | Phone | + [...] Appointment Question | | 2009 | | [address] | | | | | | Mailcode: CH10U | | | | | | [facility] | | | | | | and Healing, | | | | | | Building [address], [address]th | | | | | | Floor [place], [place] | | | | | | [address] | | | | | | [phone] | | | +--------+ + + + [...]
--- OUTSIDE RECORDS SUMMARY | ~2019-11-25 | XMS | Encounter Summary ---
Demographics + + + | Address | GENERAL DELIVERY | | | [place] [address] | + + + | Home Phone [...] Author + + + | Author | [facility] | + + + | Organization | [facility] | + + + | Address | Unknown | + + + | Phone | Unavailable | + + + Support + + +---------+ + | Name | Relationship | Address | Phone | + + +---------+ + | Per None, PT | ECON | Unknown | Unavailable | + + +---------+ + Care Team Providers + +------+ + | Care Otr Company Truck Driver Name | Role | Phone | [...] | abdominal | [address] | [address] | | | | | pain | [facility] | Ave | | | | | Neurogenic | Rd | [facility] [place] | | | | | bladder | [facility] [place] | [address] | | | | | Procedures | [address] | Phone: | | | | | CONSULT TO | Phone: | [phone] | | | | | UROLOGY | [phone] | Fax: | | | | | | Fax: | [phone] | | | | | | [phone] | | +--------+--------+ + + + + Reason for Visit + + + | Reason | Comments | + + + | Catheter Problem | | + + + Encounter Details +--------+ + + + + | Date | Type | Department | Care Team | Description | +--------+ + + + + | 02/22/ | Emergency | [facility] Emergency | Fe Walter, | | | 2017 - | | Department [address] | Edith Kelley MD [address] | | | | [address] | Brad Fabian [address] | | | 02/23/ | | [facility] | [address] [place], [place] | | | 2017 | | [place], [place] | [address] | | | | | [address] | | | | | | [phone] | | | +--------+ + + + [...] for coming to the Emergency Department at [facility] for your care. You were evaluated for [...] other well. -Be careful about taking other bisf-eys-ebbszdj medicines, which may contain acetaminophen or ibuprofen and could lead to toxicity. -If you have liver disease, kidney disease or stomach ulcers, the standard doses of these m edicines may be too high for you. -We expect that your pain will improve over the next few days, and do not expect that you w ill need to continue these medicines snf. You should talk to your primary care [...] your primary care doctor for follow-up and [facility]. Care delivered in the Emergency Department should not be considered as a substitute for [facility] care and/or specialist care for ongoing medical issues, and it is important that you fo llow up as described above. Thank you for letting us care for you at the [facility] Emergency Department today. Note: If you had [...] documented in this encounter Results UA 10 YOKO MCCLOUD (02/23/2017 1:36 AM PDT) + + + [...] [facility] | | | | | | [place], [place] | | | | | | OF CARE | | | | | | TESTS | | + + + + + + | SPECIFIC | 1.020 | 1.005 - 1.030 | [facility] - | | | GRAVITY (UA | | | [facility] | | | DIP), POC | | | [place], [place]INT | | | | | | OF CARE | | | | | | TESTS | | + + + + + + | KETONES (UA | Negative | Negative mg/dL | [facility] - | | | DIP), POC | | | [place] | | | | | | [place], POINT | | [...] [place] | [address] | [place], [place] | | | [place] POINT OF CARE | [address] | [address] | | | TESTS | | | [...] [facility] | [address] | [place] [address] | | | SERVICES, CORE | [address] [...] | + + + + + | [facility] | [address] | [place] [address] | | | SERVICES, CORE | P[address] [...] + | DIAL - AIRPORT - | [address] | [place] [address] | | | [place] | | | | + + + + + CULTURE, URINE GUSTAVO (02/22/2017 11:25 PM PDT) + + + [...] | + + + + + | [facility] | [address] | [place] [address] | | | NANCY MAX | [address] [...] | + + + + + | [facility] | [address] | [place] [address] | | | NANCY MAX | [address] [...] | + + + + + | [facility] | [address] [facility] | [place] [address] | | | SERVICES, CORE | [address] [...] | + + + + + | [facility] | [address] | [place] [address] | | | SERVICES, CORE | [address] [...] [facility] | [address] | [place] [address] | | | SERVICES, CORE | [address] [...] | + + + + + | [facility] | [address] | [place] [address] | | | SERVICES, | [address] | | | | TRANSFUSION MEDICINE | | | | + + + + + ED INFORMATION EXCHANGE (02/22/2017 8:33 PM PDT) + + | Specimen | + + | | + + + + + | Narrative | Performed At | + + + | [id number] This patient has registered at the | [facility] | | [facility] Emergency Department For more | MEDICAL | | information visit: | TECHNOLOGIES | | [email or web address] | | | [id number] ED Care Guidelines from [facility] Last | | | Updated: 12/03/16 2:35 PM Care Coordination: ENCOURAGE PATIENT | | | TO USE PCP FOR FOLLOW UP AND NON-EMERGENT PROBLEMS. GIVE PATIENT THIS | | | METAL BUFFER NAME AND NUMBER FOR HELP AND QUESTIONS. MARSHALL AMADOR ED | | | TOY CONSULTANT [facility] [phone] These are guidelines | | | and the provider should exercise clinical judgment when providing | | | care. Care History Behavioral 12/03/16 12:00 AM [facility] | | | Hospital PT IS WORKING WITH [employer] -- ATTN:IVONNE | | | JARVISKEY Medical/Surgical 11/03/14 12:00 AM [facility] | | | Hospital Smoker Methamphetamine abuse Recent Emergency | | | Department Visit Summary Admit Date Facility City State Type Major | | | Type Diagnoses or Chief Complaint Feb 22, 2017 [facility] and | | | [facility] [place] Emergency Emergency 10,[phone]. | | | [facility] [place] [facility] | | [facility] Emergency dizzy Generalized Body Aches | | | Neuromuscular dysfunction of bladder, unspecified Feb 18, 2017 [facility] | | | [place] Emergency Emergency Other stimulant | | | abuse, uncomplicated Other rn long term care (current) drug therapy | | | [...] unspecified Feb 16, 2017 | | | [facility] [place] Emergency Emergency Chief Complaint: | | | Urinary Problem Feb 03, 2017 [facility] | | | [place] Emergency Emergency Chief Complaint: URO MALE Jan | | | 2016 [facility] [place] Emergency | | | Emergency Bipolar disorder, unspecified Nicotine | | | dependence, cigarettes, uncomplicated Other stimulant | | | dependence, uncomplicated Dec 30, 2016 [facility] | | | [place] Emergency Emergency catheter issues Urinary | | | Catheter Insertion Other urethritis Retention of urine, | | | unspecified Other stimulant abuse, uncomplicated Dec 03, | | | 2016 [facility] [place] Emergency Emergency Bipolar | | | disorder, unspecified Schizoaffective disorder, unspecified | | | Other rn long term care (current) drug therapy Nicotine dependence, | | | unspecified, uncomplicated Anxiety disorder, unspecified | | | Allergy status to other antibiotic agents status Allergy status | | | to other drugs, medicaments and biological substances status | | | Other fatigue Delusional disorders Essential (primary) | | | hypertension Nov 24, 2016 [facility] [place] Emergency | | | Emergency Encounter for other general examination | | | Allergy status to other drugs, medicaments and biological substances | | | status Bipolar disorder, unspecified Other snf | | | (current) drug therapy Major depressive disorder, single | | | episode, unspecified Essential (primary) hypertension | | | Recent Inpatient Visit Summary No recorded inpatient visits. | | | E.D. Visit Count (12 mo.) Facility Visits [facility] | | | System 2 [facility] and [facility] [address] [facility] | | | [place] [address] [facility] | | | Center 2 [facility] ED 1 [facility] 15 | | | Total 23 Note: Visits indicate total known visits. Care | | | Providers Provider PRC Type Phone Fax Service Dates Fam Donnelly, | | | MD TORI Primary Care Current [facility] | | | MENTAL HEALTH, Mental Health Provider ([id number]) | | | [phone] Nov 15, 2016 - Current Summer PAULINA Norman Case or Care | | | Jv Baseball Coach Current The above | | | information is provided for the sole purpose of patient treatment. | | | Use of this information beyond the terms of Data Sharing Memorandum of | | | Understanding and License Agreement is prohibited. In certain cases | | | not all visits may be represented. Consult the aforementioned | | | facilities for additional information. 2017 [employer] | | | [employer] - [place], [place] - | | | [email or web address] | | + + + + + | Procedure Note | + + | Service Account, Rtf Results Inbound - 02/22/2017 8:34 PM PDT Formatting of this | | note might be different from the original.NIRANJAN?NOTIFICATION?02/22/2017 20:33?ROMERO, | | AALIYAH? patient has registered at the [facility] | | [place] Emergency Department For more information visit: | | [email or web address] ED Care | | [facility]: 12/03/16 2:35 PM Care | | Coordination:ENCOURAGE PATIENT TO USE PCP FOR FOLLOW UP AND NON-EMERGENT PROBLEMS.GIVE | | PATIENT THIS METAL BUFFER NAME AND NUMBER FOR HELP AND QUESTIONS.MARSHALL AMADORED CASE | | TECHNICAL SOLUTION ARCHITECT [phone] are guidelines and the provider should | | exercise clinical judgment when providing care.Care HistoryBehavioral12/03/16 12:00 AM | | [facility] -- ATTN:Magal[employer] IVONEN | | CONKEYMedical/Surgical11/03/14 12:00 AM [facility]n [facility] | | HospitalSmokerMethamphetamine abuseRecent Emergency Department Visit SummaryAdmit Date | | Facility City State Type Major Type Diagnoses or Chief Complaint Feb 22, 2017 [place] | | [facility] [place] Emergency Emergency 10,800. Cath issue Feb | | 2016 [facility] [place] Emergency Emergency dizzy Generalized | | Body Aches Neuromuscular dysfunction of bladder, unspecified Feb 18, 2017 [facility]. | | [place] Emergency Emergency Other stimulant abuse, uncomplicated | | Other snf (current) drug therapy Nicotine dependence, unspecified, | | uncomplicated Anxiety disorder, unspecified Foreign body in bladder, initial | | encounter Bipolar disorder, unspecified Allergy status to other drugs, medicaments | | and biological substances status Other nonmedicinal substance allergy status | | Allergy status to other antibiotic agents status Hematuria, unspecified Feb 16, 2017 | | [facility] [place] Emergency Emergency Chief Complaint: Urinary Problem Jan | | 2016 [facility] [place] Emergency Emergency Chief | | Complaint: URO MALE Jan 25, 2017 [facility] [place] Emergency | | Emergency Bipolar disorder, unspecified Nicotine dependence, cigarettes, | | uncomplicated Other stimulant dependence, uncomplicated Dec 30, 2016 [facility] | | [place] Emergency Emergency catheter issues Urinary Catheter | | Insertion Other urethritis Retention of urine, unspecified Other stimulant | | abuse, uncomplicated Dec 03, 2016 [facility] [place] Emergency Emergency | | Bipolar disorder, unspecified Schizoaffective disorder, unspecified Other long | | term (current) drug therapy Nicotine dependence, unspecified, uncomplicated | | Anxiety disorder, unspecified Allergy status to other antibiotic agents status | | Allergy status to other drugs, medicaments and biological substances status Other | | fatigue Delusional disorders Essential (primary) hypertension Nov 24, 2016 [facility] | | [place] Emergency Emergency Encounter for other general examination | | Allergy status to other drugs, medicaments and biological substances status | | Bipolar disorder, unspecified Other snf (current) drug therapy Major | | depressive disorder, single episode, unspecified Essential (primary) hypertension | | Recent Inpatient Visit SummaryNo recorded inpatient visits. E.D. Visit Count (12 | | mo.)Facility Visits [facility] 2 [facility] | | [address] 1 [facility] 1 [facility] | | [facility] 2 [facility] 1 [facility] 15 Total 23 Note: | | Visits indicate total known visits. Care ProvidersProvider PRC Type Phone Fax Service | | Dates Fam Donnelly MD, MD Primary Care Current [facility] | | MENTAL HEALTH, Mental Health Provider Nov 15, 2016 - | | Current PAULINA Orellana Case or Reservation Manager Current | | The above information is provided for the sole purpose of patient treatment. Use of this | | information beyond the terms of Data Sharing Memorandum of Understanding and License | | Agreement is prohibited. In certain cases not all visits may be represented. Consult the | | aforementioned facilities for additional information. ? 2017 [employer] | | [employer] - [place], [place] - [email or web address] | | Nicotine dependence, cigarettes, uncomplicated | | Other stimulant dependence, uncomplicated | | | |Dec 30, 2016 [facility] [place] Emergency Emergency | | catheter issues | | Urinary Catheter Insertion | | Other urethritis | | Retention of urine, unspecified | | Other stimulant abuse, uncomplicated | | | |Dec 03, 2016 [facility] [place] [place] [facility] Emergency | | Bipolar disorder, unspecified | | Schizoaffective disorder, unspecified | | Other rn long term care (current) drug therapy | | Nicotine dependence, unspecified, uncomplicated | | Anxiety disorder, unspecified | | Allergy status to other antibiotic agents status | | Allergy status to other drugs, medicaments and biological substances status | | Other fatigue | | Delusional disorders | | Essential (primary) hypertension | | | |Nov 24, 2016 [facility] [place] Emergency Emergency | | Encounter for other general examination | | Allergy status to other drugs, medicaments and biological substances status | | Bipolar disorder, unspecified | | Other rn long term care (current) drug therapy | | Major depressive disorder, single episode, unspecified | | Essential (primary) hypertension | | | | | | | |Recent Inpatient Visit Summary | |No recorded inpatient visits. | | | |E.D. Visit Count (12 mo.) | |Facility Visits | |[facility] 2 | |[facility] and [facility] 1 | |[facility] 1 | |[facility] 1 | |[facility] 2 | |[facility] ED 1 | |[facility] 15 | |Total 23 | |Note: Visits indicate total known visits. | | | |Care Providers | |Provider PRC Type Phone Fax Service Dates | |Fam Donnelly MD, MD Primary Care Current | |[facility] Mental Health Provider Nov 15, 2016 - Current | |PAULINA Orellana Case or Reservation Manager Current | | | |The above information is provided for the sole purpose of patient treatment. Use of this in formation beyond the terms of Data Sharing Memorandum of Understanding and License Agreement is prohibited. In | |certain cases not all visits may be represented. Consult the aforementioned facilities for additional information. | |? 2017 [employer], [employer] - [place], [place] - | + + + + + + + | Performing | Address | City/State/Zipcode | Phone Number | | Organization | | | | + + + + + | [facility] | [address] | [place], [place] | [phone] | | TECHNOLOGIES | [address] | [address] | | + + + + + [...]
--- OUTSIDE RECORDS SUMMARY | ~2019-11-25 | XMS | Encounter Summary ---
Demographics + + + | Address | GENERAL DELIVERY | | | [place] [address] | + + + | Home Phone [...] + + + | Author | [facility] | + + + | Organization | [facility] | + + + | Address | Unknown | + + + | Phone | Unavailable | + + + Support + + +---------+ + | Name | Relationship | Address | Phone | + + +---------+ + | Per None, PT | ECON | Unknown | Unavailable | + + +---------+ + Care Team Providers + +------+ + | Care Putty And Caulking Supervisor Name | Role | Phone | [...] Catheter Problem | | 2009 | | [address] | | | | | | Mailcode: CH10U | | | | | | [facility] | | | | | | and Healing, | | | | | | Building [address], [address] | | | | | | Floor [place], [place] | | | | | | [address] | | | | | | [phone] | | | +--------+ + + + [...]
--- OUTSIDE RECORDS SUMMARY | ~2019-11-25 | XMS | Encounter Summary ---
Demographics + + + | Address | GENERAL DELIVERY | | | [place] [address] | + + + | Home Phone [...] Providers + +------+ + | Care Manager Collection Name | Role | Phone | + +------+ + | Etienne Barnes PA-C | PCP | | + +------+ + Encounter Details +--------+ + + + + | Date | Type | Department | Care Team | Description | +--------+ + + + + | 09/14/ | Document-Sc | UNKNOWN DEPARTMENT | Unknown . | | | 2014 | anned | [address] [facility] | | | | | | [address] | | | | | | [place], [place] | | | | | | [address] | | | +--------+ + + + [...]
--- OUTSIDE RECORDS SUMMARY | ~2019-11-25 | XMS | Encounter Summary ---
Demographics + + + | Address | GENERAL DELIVERY | | | [place] [address] | + + + | Home Phone [...] Team Providers + +------+ + | Care Service Rig Operator Name | Role | Phone | [...] | Appointment | | 2009 | | [address] | | | | | | Mailcode: CH10U | | | | | | [facility] | | | | | | and Healing, | | | | | | | | | | | | Floor [place], [place] | | | | | | [address] | | | | | | [phone] | | | +--------+ + + + [...]
--- OUTSIDE RECORDS SUMMARY | ~2019-11-25 | XMS | Encounter Summary ---
Demographics + + + | Address | GENERAL DELIVERY | | | [place] [address] | + + + | Home Phone [...] Providers + +------+ + | Care Exchange Underwriting Consultant Name | Role | Phone | + +------+ + | Lakesha River | PCP | | + +------+ + Encounter Details +--------+------+ + + + | Date | Type | Department | Care Team | Description | +--------+------+ + + + | 02/27/ | Lab | Laboratory at [facility] | | Chronic Hepatitis C | | 2007 | | [address] | | without Mention of | | | | [place] for [facility] | | Hepatic Coma | | | | and Healing, | | | | | | Building [address] | | | | | | [place], [place] | | | | | | [address] | | | | | | [phone] | | | +--------+------+ + + + [...] Hepatitis | Results for this | | FINGERSTICK | e | 9:24 AM | C without Mention of | procedure are in the | | | | PDT | Hepatic Coma | results section. | + +--------+ + + + documented in this encounter Results [facility] - INR (PROTHROMBINTIME) (02/28/2008 9:24 [...] + + + | [facility] | [facility] | [place] [address] | | | PATHOLOGY | [address] | | | + + + + + | [facility] | [address] [place] [address] | [place] [address] | | | PATHOLOGY | [address] [...] + + + | [facility] | [address] | [place] [address] | | | PATHOLOGY | [address] | | | + + + + + | [facility] | [address] | [place] [address] | | | PATHOLOGY | [address] | | | + + + + + [facility] - COMPLETE METABOLIC SET (02/28/2008 9:24 AM [...] DEPARTMENT OF | [address] | [place] [address] | | | PATHOLOGY | [address] | | | + + + + + | [facility] | [address] | [place] [address] | | | PATHOLOGY | [address] | | | + + + + + documented in this encounter Visit Diagnoses + + | Diagnosis | + + | Chronic hepatitis C without mention of hepatic coma | + + documented in this encounter"
--- OUTSIDE RECORDS SUMMARY | ~2019-11-25 | XMS | Encounter Summary ---
Demographics + + + | Address | GENERAL DELIVERY | | | [place] [address] | + + + | Home Phone [...] Providers + +------+ + | Care Wire Splicer Name | Role | Phone | + +------+ + PCP | Unavailable | + +------+ + Encounter Details +--------+ + + + + | Date | Type | Department | Care Team | Description | +--------+ + + + + | 06/15/ | Document-Sc | Digestive Health | Jeancarlos Marley MD | | | 2015 | anned | Center at [facility] [address] | [address] | | | | | [address] | [place], [place] | | | | | [facility] and | [address] | | | | | [facility] 2 | [phone] | | | | | [place], [place] | | | | | | [address] | | | | | | [phone] | | | +--------+ + + + [...]
--- OUTSIDE RECORDS SUMMARY | ~2019-11-25 | XMS | Clinical Summary ---
Demographics + + + | Address | GENERAL DELIVERY | | | [place] [address] | + + + | Home Phone [...] Author + + + | Author | [facility] | + + + | Organization | [facility] | + + [...] Team Providers + +------+ + | Care Master Welder Name | Role | Phone | + +------+ + | Fam Donnelly MD | PCP | | + +------+ + Source Comments GUST[facility] is fully live on both [facility] and [facility] InPatient.[facility] Allergies + + + + + [...] + +--------+ +--------+-------+---------+--------+ | [place] | AGENCY | xxxxxxxxx | 05/18/19 | | | Agency | | | STATE | | 11-Pre | | | | | | OF | | sent | | | | | | [place] | | | | | | + +--------+ +--------+-------+---------+--------+ | MILITARY PROFESSIONAL MEDICAID | MILITARY PROFESSIONAL | [id number] | 05/22/19 | | | [...] | 1979 | [phone] | [place] [address] | | | linda | | | 3 (Home) | | + +--------+ +--------+ + + | Peng Richardson | Agency | Self | 09/20/ | | GENERAL DELIVERY | | | | | 1980 | [id number] | [place] [address] | | | | | | 3 (Home) | | + +--------+ +--------+ + + Advance Directives + + + + + | Type | Date Recorded | Patient | Explanation | | | | Lithographic Proofer Apprentice | | + + + + + | Advance | | | | | Directives and | | | | | Living Will | | | | + + + + + | Power of | | | | | Premium Representative | | | | + + + + +
--- OUTSIDE RECORDS SUMMARY | ~2019-11-25 | XMS | Encounter Summary ---
Demographics + + + | Address | GENERAL DELIVERY | | | [place] [address] | + + + | Home Phone [...] Team Providers + +------+ + | Care Guest Services Lead Name | Role | Phone | + +------+ + | PericoJuan Carlosn | PCP | | + +------+ + Encounter Details +--------+------+ + + + | Date | Type | Department | Care Team | Description | +--------+------+ + + + | 08/21/ | Lab | Laboratory at [facility] | | Chronic Hepatitis C | | 2008 | | [address] | | without Mention of | | | | Loop Physician's | | Hepatic Coma | | | | [place], [facility] floor | | | | | | [place], [place] | | | | | | [address] | | | | | | [phone] | | | +--------+------+ + + + [...] | [facility] DEPARTMENT OF | [address] | [place] [address] | | | PATHOLOGY | [address] | | | + + + + + | [facility] OF | [address] | [place] [address] | | | PATHOLOGY | [address] [...] | + + + + + | [facility] | [address] [facility] | [place] [address] | | | PATHOLOGY | [address] | | | + + + + + | [facility] | [address] [facility] | [place] [address] | | | PATHOLOGY | [address] [...] | + + + + + | [facility] | [address] | [place] [address] | | | PATHOLOGY | [address] | | | + + + + + | [facility] | [address] | [place] [address] | | | PATHOLOGY | [address] [...] Performed At | + + + | [id number] Estimated GFR > 60 mL/min/1.73 sq m if non- | [facility] | | [place] [address] Estimated GFR > 60 mL/min/1.73 sq m if | DEPARTMENT | | [place] GFR is estimated using [...] | + + + + + | [facility] | [address] [facility] | [place] [address] | | | PATHOLOGY | [address] | | | + + + + + | [facility] | [address] | [place] [address] | | | PATHOLOGY | [address] | | | + + + + + documented in this encounter Visit Diagnoses + + | Diagnosis | + + | Chronic hepatitis C without mention of hepatic coma | + + documented in this encounter"
--- OUTSIDE RECORDS SUMMARY | ~2019-11-25 | XMS | Encounter Summary ---
Demographics + + + | Address | GENERAL DELIVERY | | | [place] [address] | + + + | Home Phone [...] Team Providers + +------+ + | Care Business Process Analyst Name | Role | Phone | [...] Required | | hepatitis C | [address] | [address] | | | | | without | [address] | Ave | | | | | mention of | [place], | [place], [place] | | | | | hepatic coma | [place] [address] | [address] | | | | | Procedures | Phone: | Phone: | | | | | CONSULT TO | [phone] | [phone] | | | | | HEPATOLOGY | Fax: | Fax: | | | | | | [phone] | [phone] | +--------+ + + + + + Encounter Details +--------+---------+ + + + | Date | Type | Department | Care Team | Description | +--------+---------+ + + + | 06/16/ | Office | Digestive Health | Jeancarlos Marley MD | Chronic Hepatitis C | | 2007 | Visit | Center at [facility] [address] | [address] | without Mention of | | | | [address] | [place], [place] | Hepatic Coma | | | | for Health and | [address] | (Primary Dx) | | | | Healing, Building [address] | [phone] | | | | | [place], [place] | | | | | | [address] | | | | | | [phone] | | | +--------+---------+ + + + [...] | | + +---------+ + + | [facility] DEPARTMENT OF | | | | [...] | | | | | determined bythe [facility] | | | | | | DNA [...] | | | | | Improvement Act [id number]. | | | | | | The [facility] | | | | | | Laboratory is a fully | | | | | | licensed and/ | | | | | | oraccredited clinical | | | | | | laboratory under CLIA, | | | | | | [place], and the State of | | | | | | [place]. | | | | + + + + + + + + | Specimen | + + | | + + + + + + + | Performing | Address | City/State/Zipcode | Phone Number | | Organization | | | | + + + + + | [facility] | [facility] | [place] [address] | | | GENETICS LABS | [address] | | | | | [address]VE. [...] Iron and TIBC, Serum Test performed by [facility] | | | [facility]. | | + + + + + + + + | Performing | Address | City/State/Zipcode | Phone Number | | Organization | | | | + + + + + | [facility] | [address] | [place] [address] | | | LABORATORY | | | [...] | | | [facility] ([address] [facility]) [facility] [address] | | | [address] [place], [place] | | | [address] | | + + + + + + + + | Performing | Address | City/State/Zipcode | Phone Number | | Organization | | | | + + + + + | [facility] | [address] | [place] [address] | | | LABORATORY | | | [...] + + + | Test performed by [facility]. | | + + + + + + + + | Performing | Address | City/State/Zipcode | Phone Number | | Organization | | | | + + + + + | [facility] | [address] | [place] [address] | | | LABORATORY | | | [...] by | | | | | | [facility] | | | | | | Formerly [facility]. | | | | + + + + + + + + | Specimen | + + | | + + + + + + + | Performing | Address | City/State/Zipcode | Phone Number | | Organization | | | | + + + + + | [facility] | [address] | [place] [address] | | | LABORATORY | | | [...] | + + + + + | [facility] | [address] [facility] | [place] [address] | | | PATHOLOGY | [address] | | | + + + + + | [facility] | [address] | [place] [address] | | | PATHOLOGY | [address] [...] | + + + | Sent to [facility]. | [facility] | | | DEPARTMENT OF | | | PATHOLOGY | + + + + + + + + | Performing | Address | City/State/Zipcode | Phone Number | | Organization | | | | + + + + + | [facility] DEPARTMENT | [facility] | [place] [address] | | | PATHOLOGY | [address] | | | + + + + + | [facility] DEPARTMENT OF | [facility] | [place] [address] | | | PATHOLOGY | [address] | | | + + + + + documented in this encounter Visit Diagnoses + + | Diagnosis | + + | Chronic hepatitis C without mention of hepatic coma - Primary | + + documented in this encounter
--- OUTSIDE RECORDS SUMMARY | ~2019-11-25 | XMS | Encounter Summary ---
Demographics + + + | Address | GENERAL DELIVERY | | | [place] [address] | + + + | Home Phone [...] Team Providers + +------+ + | Care Store Sales Manager Name | Role | Phone | + +------+ + | Lakesha River | PCP | | + +------+ + Encounter Details +--------+ + + + + | Date | Type | Department | Care Team | Description | +--------+ + + + + | 02/27/ | Telephone | Digestive Health | Jeancarlos Marley MD | | | 2007 | | Center [place] [address] [address] | [address] | | | | | [address] | [place], [place] | | | | | for Health and | [address] | | | | | [facility] 2 | [phone] | | | | | [place], [place] | | | | | | [address] | | | | | | [phone] | | | +--------+ + + + [...]
--- OUTSIDE RECORDS SUMMARY | ~2019-11-25 | XMS | Encounter Summary ---
Demographics + + + | Address | GENERAL DELIVERY | | | [place] [address] | + + + | Home Phone [...] Team Providers + +------+ + | Care Earth Science Teacher Name | Role | Phone | [...] | | | | | | | [address] | | | | | | | Ave | | | | | | | [place], [place] | | | | | | | [address] | +--------+--------+ + + + + Encounter Details +--------+ + + + + | Date | Type | Department | Care Team | Description | +--------+ + + + + | 03/17/ | Procedure | Urology Adult | Armand Ordonez MD | Follow-up visit | | 2010 | | [address] | [address] | | | | | Mailcode: CH10U | [place], [place] | | | | | [facility] | [address] | | | | | and Healing, | [phone] | | | | | | | | | | | Floor [place], [place] | | | | | | [address] | | | | | | [phone] | | | +--------+ + + + [...] month Facility will likely change care to [place] [facility] due to distance. documented in this encounter Plan of Treatment Not on filedocumented as of this encounter Visit Diagnoses + + | Diagnosis | + + | Urinary retention - Primary Retention of urine, unspecified | + + documented in this encounter"
--- OUTSIDE RECORDS SUMMARY | ~2019-11-25 | XMS | Encounter Summary ---
Demographics + + + | Address | GENERAL DELIVERY | | | [place] [address] | + + + | Home Phone [...] Providers + +------+ + | Care Supervisor Sewer Maintenance Name | Role | Phone | + [...] | | | | | | | [address] | | | | | | | Ave | | | | | | | [place], [place] | | | | | | | [address] | +--------+--------+ + + + + Encounter [...] | | | | Mailcode: CH10U | [place], [place] | | | | | [facility] | [address] | | | | | and Healing, | [phone] | | | | | | | | | | | Floor [place], [place] | | | | | | [address] | | | | | | [phone] | | | +--------+ + + + [...] month Facility will likely change care to [place] due to distance. documented in this encounter Plan of Treatment Not on filedocumented as of this encounter Visit Diagnoses + + | Diagnosis | + + | Urinary retention - Primary Retention of urine, unspecified | + + documented in this encounter"
--- OUTSIDE RECORDS SUMMARY | ~2019-11-25 | XMS | Encounter Summary ---
Demographics + + + | Address | GENERAL DELIVERY | | | [place] [address] | + + + | Home Phone [...] Team Providers + +------+ + | Care Policy Change Clerk Name | Role | Phone | [...] | | | | | [address] | [place], [place] | | | | | [facility] | [address] | | | | | (MNP/OLD [facility]) | [phone] | | | | | [place], [place] | | | | | | [address] | | | | | | [phone] | | | +--------+ + + + [...] Discharge Instructions Instructions Katie Kuo RN - 02/14/2011[facility] After Reyna Catheter & [...] from 8:00 4:30, call the Urology Clinic [phone]. After hours, weekend and holidays call the Hospital Customer Associate at [phone]. Ask for them to page your doctor. Your doctor is RETURN APPOINTMENT Pre-Scheduled for March 31, 2011 @ 10:45 AM Call the Urology clinic to confirm this appointment . Urology Clinic [phone] Please call the clinic if you need [...]
--- OUTSIDE RECORDS SUMMARY | ~2019-11-25 | XMS | Encounter Summary ---
Demographics + + + | Address | GENERAL DELIVERY | | | [place] [address] | + + + | Home Phone [...] Providers + +------+ + | Care Oil And Gas Field Technician Name | Role | Phone | [...] Abdominal pain | | 2007 | | [place] [address] [address] | [address] | | | | | [address] | [facility] [place] | | | | | for Health and | [address] | | | | | Healing, Building 2 | [phone] | | | | | [place], [place] | | | | | | [address] | | | | | | [phone] | | | +--------+ + + + [...]
--- OUTSIDE RECORDS SUMMARY | ~2019-11-25 | XMS | Encounter Summary ---
Demographics + + + | Address | GENERAL DELIVERY | | | [place] [address] | + + + | Home Phone [...] Team Providers + +------+ + | Care Agile Business Analyst Name | Role | Phone | [...] | | | URINARY | [place] | [address] | | | | | RETENTION | STATE | Ave | | | | | | HOSPITAL | [place], [place] | | | | | | [address] | [address] | | | | | | [address] | | | | | | | [place] | | | | | | | [address] | | | | | | | Phone: | | | | | | | [phone] | | | | | | | Fax: | | | | | | | [phone] | | +--------+--------+ + + + + Encounter Details +--------+ + + + + | Date | Type | Department | Care Team | Description | +--------+ + + + + | 03/28/ | Procedure | Urology Adult | Wang Canchola MD | Cystoscopy | | 2009 | | [address] | | | | | | Mailcode: CH10U | | | | | | [facility] | | | | | | and Healing, | | | | | | Building | | | | | | Floor [place], [place] | | | | | | [address] | | | | | | [phone] | | | +--------+ + + + [...] hands with soap and water or hand manufacturing engineer machining. Clean the tip of the penis with [...] or contact PCP or call us at [phone] or after hours at [phone] for signs or symptoms of UTI. Urinary [...] for life. We will have our clinic proposal review analyst the proper technique. He should be able [...] Resident Physician - Division of Urology Pager #[id number] Wang Fitzgerald Md - 1 05/28/2009 10:48 [...] + +--------+ + + + | CT CYSTOURETHROSCOPY | Routin | 03/28/2010 | Unspecified [...] + +--------+ + + + | CT CYSTOURETHROSCOPY | Routin | 03/28/2010 | Voiding | Results for this | | | e | | dysfunction | procedure are in the | | | | | | results section. | + +--------+ + + + documented in this encounter Results CT CYSTOURETHROSCOPY (03/28/2010) + + + | Narrative [...] [facility] | [address] [facility] | [place] [address] | | | OF CARE TESTS | | | | + + + + + documented in this encounter Visit Diagnoses + + | Diagnosis | + + | Retention of urine, unspecified | + + | Voiding dysfunction Unspecified disorder of urethra and urinary tract | + + documented in this encounter"
--- OUTSIDE RECORDS SUMMARY | ~2019-11-25 | XMS | Encounter Summary ---
Demographics + + + | Address | GENERAL DELIVERY | | | [place] [address] | + + + | Home Phone [...] Team Providers + +------+ + | Care Photographic Double Name | Role | Phone | + +------+ + | Etienne Barnes PA-C | PCP | | + +------+ + Encounter Details +--------+ + + + + | Date | Type | Department | Care Team | Description | +--------+ + + + + | 06/07/ | Document-Sc | UNKNOWN DEPARTMENT | Unknown . | | | 2014 | anned | [address] [facility] | | | | | | [address] | | | | | | [place], [place] | | | | | | [address] | | | +--------+ + + + [...]
--- OUTSIDE RECORDS SUMMARY | ~2019-11-25 | XMS | Encounter Summary ---
Demographics + + + | Address | GENERAL DELIVERY | | | [place] [address] | + + + | Home Phone [...] Team Providers + +------+ + | Care Painter Supervisor Name | Role | Phone | [...] abd u/s | | 2007 | | [place] at [facility] [address] | [address] | order faxed/mailed) | | | | [address] [facility] | [place], [place] | | | | | for Health and | [address] | | | | | [facility] 2 | [phone] | | | | | [facility] [place] | | | | | | [address] | | | | | | [phone] | | | +--------+ + + + [...]
--- OUTSIDE RECORDS SUMMARY | ~2019-11-25 | XMS | Encounter Summary ---
Demographics + + + | Address | GENERAL DELIVERY | | | [place] [address] | + + + | Home Phone [...] Team Providers + +------+ + | Care Mason Tender Name | Role | Phone | + [...] | 2007 | | Center at [facility] [address] | [address] | your call.) | | | | [address] | [facility] [place] | | | | | for Health and | [address] | | | | | [facility], Building 2 | [phone] | | | | | [place], [place] | | | | | | [address] | | | | | | [phone] | | | +--------+ + + + [...]
--- OUTSIDE RECORDS SUMMARY | ~2019-11-25 | XMS | Encounter Summary ---
Demographics + + + | Address | GENERAL DELIVERY | | | [place] [address] | + + + | Home Phone [...] Providers + +------+ + | Care Engine Dynamometer Tester Name | Role | Phone | [...] [place], [place] | | | | | [facility] | [address] | | | | | and [place], | [phone] | | | | | [facility] | | | | | | Floor [place], [place] | | | | | | [address] | | | | | | [phone] | | | +--------+ + + + [...]
--- OUTSIDE RECORDS SUMMARY | ~2019-11-25 | XMS | Encounter Summary ---
Demographics + + + | Address | GENERAL DELIVERY | | | [place] [address] | + + + | Home Phone [...] Providers + +------+ + | Care Manager Assurance Name | Role | Phone | + +------+ + | Lakesha River | PCP | | + +------+ + Encounter Details +--------+ + + + + | Date | Type | Department | Care Team | Description | +--------+ + + + + | 02/27/ | Telephone | Digestive Health | Jeancarlos Marley MD | | | 2007 | | Center [place] [address] [address] | [address] | | | | | [address] | [place], [place] | | | | | for Health and | [address] | | | | | [facility], [facility] 2 | [phone] | | | | | [place], [place] | | | | | | [address] | | | | | | [phone] | | | +--------+ + + + [...]
--- OUTSIDE RECORDS SUMMARY | ~2019-11-25 | XMS | Encounter Summary ---
Demographics + + + | Address | GENERAL DELIVERY | | | [place] [address] | + + + | Home Phone [...] Team Providers + +------+ + | Care Certified Substance Abuse Counselor Name | Role | Phone | [...] | abdominal | [address] | [address] | | | | | pain | [facility] | Ave | | | | | Neurogenic | Rd | [facility] [place] | | | | | bladder | [facility] [place] | [address] | | | | | Procedures | [address] | Phone: | | | | | CONSULT TO | Phone: | [phone] | | | | | UROLOGY | [phone] | Fax: | | | | | | Fax: | [phone] | | | | | | [phone] | | +--------+--------+ + + + + Reason for Visit + + + | Reason | Comments | + + + | Catheter Problem | | + + + Encounter Details +--------+ + + + + | Date | Type | Department | Care Team | Description | +--------+ + + + + | 02/22/ | Emergency | [facility] Emergency | Fe Walter, | | | 2017 - | | Department [address] | Edith Kelley MD [address] | | | | [address] | Brad Fabian [address] | | | 02/23/ | | [facility] | [address], [place] | | | 2017 | | [place], [place] | [address] | | | | | [address] | | | | | | [phone] | | | +--------+ + + + [...] for coming to the Emergency Department at [facility] for your care. You were evaluated [...] other well. -Be careful about taking other ijcj-enc-tfdhxro medicines, which may contain acetaminophen or ibuprofen [...] your primary care doctor for follow-up and [facility] care. Care delivered in the Emergency Department should not be considered as a substitute for [facility] care and/or specialist care for ongoing medical issues, and it is important that you fo llow up as described above. Thank you for letting us care for you at the [facility] Emergency Department today. Note: If you [...] MARQUAM | [address] | [place], [place] | | | ELISSA POINT OF CARE | [address] | [address] | | | TESTS | | | [...] [facility] | [address] | [place] [address] | | | SERVICES, CORE | [address] [...] [facility] | [address] | [place] [address] | | | SERVICES, CORE | [address]ARK [...] + | DIAL - AIRPORT - | [address] | [place] [address] | | | [place] | | | [...] | + + + + + | [facility] | [address] | [place] [address] | | | NANCY MAX | [address] [...] | + + + + + | [facility] | [address] | [place] [address] | | | NANCY MAX | [address] [...] | + + + + + | [facility] | [address] [facility] | [place] [address] | | | SERVICES, CORE | [address] [...] | + + + + + | [facility] | [address] | [place] [address] | | | SERVICES, CORE | [address] [...] [facility] | [address] | [place] [address] | | | SERVICES, CORE | PARK [...] | + + + + + | [facility] | [address] | [place] [address] | | | SERVICES, | [address] | | | | TRANSFUSION MEDICINE | | | | + + + + + ED INFORMATION EXCHANGE (02/22/2017 8:33 PM PDT) + + | Specimen | + + | | + + + + + | Narrative | Performed At | + + + | [id number] This patient has registered at the | [facility] | | [facility] Emergency Department For more | MEDICAL | | information visit: | TECHNOLOGIES | | [email or web address] | | | [id number] ED Care Guidelines from [facility] Last | | | Updated: 12/03/16 2:35 PM Care Coordination: ENCOURAGE PATIENT | | | TO USE PCP FOR FOLLOW UP AND NON-EMERGENT PROBLEMS. GIVE PATIENT THIS | | | NONPROFIT FINANCIAL CONTROLLER NAME AND NUMBER FOR HELP AND QUESTIONS. MARSHALL AMADOR ED | | | APRON OPERATOR [facility] [phone] These are guidelines | | | and the provider should exercise clinical judgment when providing | | | care. Care History Behavioral 12/03/16 12:00 AM [facility] | | | Hospital PT IS WORKING WITH [employer] -- ATTN:IVONNE | | | JARVISKEY Medical/Surgical 11/03/14 12:00 AM [facility] | | | Hospital Smoker Methamphetamine abuse Recent Emergency | | | Department Visit Summary Admit Date Facility City State Type Major | | | Type Diagnoses or Chief Complaint Feb 22, 2017 [facility] and | | | [facility] [place] Emergency Emergency 10,800. | | | Cath [facility] [place] [place] | | | Emergency Emergency dizzy Generalized Body Aches | | | Neuromuscular dysfunction of bladder, unspecified Feb 18, 2017 [facility] | | | [facility] [place] Emergency Emergency Other stimulant | | | abuse, uncomplicated Other meterman (current) drug therapy | | | Nicotine [...] unspecified Feb 16, 2017 | | | [facility] [place] [place] Emergency Emergency Chief Complaint: | | | Urinary Problem Feb 03, 2017 [facility] | | | [place] Emergency Emergency Chief Complaint: URO MALE Jan | | | 2016 [facility] [place] Emergency | | | Emergency Bipolar disorder, unspecified Nicotine | | | dependence, cigarettes, uncomplicated Other stimulant | | | dependence, uncomplicated Dec 30, 2016 [facility] | | | [place] Emergency Emergency catheter issues Urinary | | | Catheter Insertion Other urethritis Retention of urine, | | | unspecified Other stimulant abuse, uncomplicated Dec 03, | | | 2016 [facility] [place] Emergency Emergency Bipolar | | | disorder, unspecified Schizoaffective disorder, unspecified | | | Other meterman (current) drug therapy Nicotine dependence, | | | unspecified, uncomplicated Anxiety disorder, unspecified | | | Allergy status to other antibiotic agents status Allergy status | | | to other drugs, medicaments and biological substances status | | | Other fatigue Delusional disorders Essential (primary) | | | hypertension Nov 24, 2016 [facility] [place] [facility] Emergency | | | Emergency Encounter for other general examination | | | Allergy status to other drugs, medicaments and biological substances | | | status Bipolar disorder, unspecified Other fdc | | | (current) drug therapy Major depressive disorder, single | | | episode, unspecified Essential (primary) hypertension | | | Recent Inpatient Visit Summary No recorded inpatient visits. | | | E.D. Visit Count (12 mo.) Facility Visits [facility] | | | System 2 [facility] and [facility] 1 [facility] | | | [place] [address] [facility] | | | Center 2 [facility] ED 1 [facility] 15 | | | Total 23 Note: Visits indicate total known visits. Care | | | Providers Provider PRC Type Phone Fax Service Dates Fam Donnelly, | | | MD TORI Primary Care Current [facility] | | | MENTAL HEALTH, Mental Health Provider ([id number]) | | | [phone] Nov 15, 2016 - Current Summer PAULINA Norman Case or Care | | | Streetcar Conductor Current The above | | | information is provided for the sole purpose of patient treatment. | | | Use of this information beyond the terms of Data Sharing Memorandum of | | | Understanding and License Agreement is prohibited. In certain cases | | | not all visits may be represented. Consult the aforementioned | | | facilities for additional information. 2017 [employer] | | | [employer]. - [place], [place] - | | | [email or web address] | | + + + + + | Procedure Note | + + | Service Account, Rtf Results Inbound - 02/22/2017 8:34 PM PDT Formatting of this | | note might be different from the original.NIRANJAN?NOTIFICATION?02/22/2017 20:33?ROMERO, | | AALIYAH? patient has registered at the [facility] | | [place] Emergency Department For more information visit: | | [email or web address] ED Care | | [facility]: 12/03/16 2:35 PM Care | | Coordination:ENCOURAGE PATIENT TO USE PCP FOR FOLLOW UP AND NON-EMERGENT PROBLEMS.GIVE | | PATIENT THIS NONPROFIT FINANCIAL CONTROLLER NAME AND NUMBER FOR HELP AND QUESTIONS.MARSHALL AMADORED CASE | | INSIDE SALES ASSISTANT [facility] [phone] are guidelines and the provider should | | exercise clinical judgment when providing care.Care HistoryBehavioral12/03/16 12:00 AM | | [facility] -- ATTN:[employer] IVONNE | | CONKEYMedical/Surgical11/03/14 12:00 AM [facility] | | HospitalSmokerMethamphetamine abuseRecent Emergency Department Visit SummaryAdmit Date | | Facility City State Type Major Type Diagnoses or Chief Complaint Feb 22, 2017 [place] | | [facility] [place] Emergency Emergency 10,800. Cath issue Feb | | 2016 [facility] [place] Emergency Emergency dizzy Generalized | | Body Aches Neuromuscular dysfunction of bladder, unspecified Feb 18, 2017 [facility]. | | [place] Emergency Emergency Other stimulant abuse, uncomplicated | | Other fdc (current) drug therapy Nicotine dependence, unspecified, | [...] Complaint: Urinary Problem Jan | | 2016 [facility] [place] Emergency Emergency Chief | | Complaint: URO MALE Jan 25, 2017 [facility] [place] Emergency | | Emergency Bipolar disorder, unspecified Nicotine dependence, cigarettes, | | uncomplicated Other stimulant dependence, uncomplicated Dec 30, 2016 [facility] | | [place] Emergency Emergency catheter issues Urinary Catheter | | Insertion Other urethritis Retention of urine, unspecified Other stimulant | | abuse, uncomplicated Dec 03, 2016 [facility] [place] Emergency Emergency | | Bipolar disorder, unspecified Schizoaffective disorder, unspecified Other long | | term (current) drug therapy Nicotine dependence, unspecified, uncomplicated | | Anxiety disorder, unspecified Allergy status to other antibiotic agents status | | Allergy status to other drugs, medicaments and biological substances status Other | | fatigue Delusional disorders Essential (primary) hypertension Nov 24, 2016 [facility] | | [place] Emergency Emergency Encounter for other general examination | | Allergy status to other drugs, medicaments and biological substances status | | Bipolar disorder, unspecified Other fdc (current) drug therapy Major | | depressive disorder, single episode, unspecified Essential (primary) hypertension | | Recent Inpatient Visit SummaryNo recorded inpatient visits. E.D. Visit Count (12 | | mo.)Facility Visits [facility] 2 [facility] | | [address] 1 [facility] 1 [facility] | | [facility] 2 [facility] 1 [facility] 15 Total 23 Note: | | Visits indicate total known visits. Care ProvidersProvider PRC Type Phone Fax Service | | Dates Fam Donnelly MD, MD Primary Care Current [facility] | | MENTAL HEALTH, Mental Health Provider Nov 15, 2016 - | | Current PAULINA Orellana Case or Case Manager Current | | The above information is provided for the sole purpose of patient treatment. Use of this | | information beyond the terms of Data Sharing Memorandum of Understanding and License | | Agreement is prohibited. In certain cases not all visits may be represented. Consult the | | aforementioned facilities for additional information. ? 2017 [employer] | | [employer]. - [place], [place] - [email or web address] | | Nicotine dependence, cigarettes, uncomplicated | | Other stimulant dependence, uncomplicated | | | |Dec 30, 2016 [facility] [place]ie [place] Emergency Emergency | | catheter issues | | Urinary Catheter Insertion | | Other urethritis | | Retention of urine, unspecified | | Other stimulant abuse, uncomplicated | | | |Dec 03, 2016 [facility] [place] [facility] Emergency | | Bipolar disorder, unspecified | | Schizoaffective disorder, unspecified | | Other meterman (current) drug therapy | | Nicotine dependence, unspecified, uncomplicated | | Anxiety disorder, unspecified | | Allergy status to other antibiotic agents status | | Allergy status to other drugs, medicaments and biological substances status | | Other fatigue | | Delusional disorders | | Essential (primary) hypertension | | | |Nov 24, 2016 [facility] [place] Emergency Emergency | | Encounter for other general examination | | Allergy status to other drugs, medicaments and biological substances status | | Bipolar disorder, unspecified | | Other meterman (current) drug therapy | | Major depressive disorder, single episode, unspecified | | Essential (primary) hypertension | | | | | | | |Recent Inpatient Visit Summary | |No recorded inpatient visits. | | | |E.D. Visit Count (12 mo.) | |Facility Visits | |[facility] 2 | |[facility] and [facility] 1 | |[facility] 1 | |[facility] 1 | |[facility] 2 | |[facility] ED 1 | |[facility] 15 | |Total 23 | |Note: Visits indicate total known visits. | | | |Care Providers | |Provider PRC Type Phone Fax Service Dates | |Fam Donnelly MD, MD Primary Care Current | |[facility] Mental Health Provider Nov 15, 2016 - Current | |PAULINA Orellana Case or Case Manager Current | | | |The above information is provided for the sole purpose of patient treatment. Use of this in formation beyond the terms of Data Sharing Memorandum of Understanding and License Agreement is prohibited. In | |certain cases not all visits may be represented. Consult the aforementioned facilities for additional information. | |? 2017 [employer], [employer] - [place], [place] - [email or web address] | + + + + + + + | Performing | Address | City/State/Zipcode | Phone Number | | Organization | | | | + + + + + | [facility] | [address] | [place], [place] | [phone] | | TECHNOLOGIES | [address] | [address] | | + + + + + [...]
--- OUTSIDE RECORDS SUMMARY | ~2019-11-25 | XMS | Encounter Summary ---
Demographics + + + | Address | GENERAL DELIVERY | | | [place] [address] | + + + | Home Phone [...] Team Providers + +------+ + | Care Reinforcing Rod Layer Name | Role | Phone | + [...] Abdominal pain | | 2007 | | [place] [address] [address] | [address] | (liver pain) | | | | [address] [place] | [place], [place] | | | | | for Health and | [address] | | | | | [facility], Building [address] | [phone] | | | | | [place], [place] | | | | | | [address] | | | | | | [phone] | | | +--------+ + + + [...] + | [place] DEPARTMENT OF | [address] [facility] | [place] [address] | | | PATHOLOGY | [address] | | | + + + + + | [place] DEPARTMENT OF | [address] [facility] | [place] [address] | | | PATHOLOGY | [address] [...] | + + + + + | [facility] DEPARTMENT OF | [address] | [place] [address] | | | PATHOLOGY | [address] | | | + + + + + | [facility] OF | [address] | [place] [address] | | | PATHOLOGY | [address] [...] Performed At | + + + | [id number] Estimated GFR > 60 mL/min/1.73 sq m if non- | [facility] | | [place] [id number] Estimated GFR > 60 mL/min/1.73 sq m if | DEPARTMENT OF | | [place] GFR is estimated using the MDRD equation [...] | + + + + + | [facility] | [address] | [place] [address] | | | PATHOLOGY | [address] | | | + + + + + | [facility] | [address] | [place] [address] | | | PATHOLOGY | [address] [...] spleen | | | | | | ozsuozrd44.5 cm in | | | | | [...] | | + +---------+ + + | [facility] DEPARTMENT OF | | | | [...]
--- OUTSIDE RECORDS SUMMARY | ~2019-11-25 | XMS | Encounter Summary ---
Demographics + + + | Address | GENERAL DELIVERY | | | [place] [address] | + + + | Home Phone [...] Team Providers + +------+ + | Care Lab Technologist Name | Role | Phone | [...] | | | | | retention | [place] | [address] | | | | | Urinary | STATE | Ave | | | | | Retention | HOSPITAL | [place], [place] | | | | | Procedures | [address] | [address] | | | | | REQUEST TO | [address] | Phone: | | | | | SURGERY | [place] | [phone] | | | | | BOW MAKER MACHINE TENDER | [address] | Fax: | | | | | [place] | Phone: | [phone] | | | | | INCISE/DRAIN | [phone] | | | | | | BLADDER | Fax: | | | | | | suprapubic | [phone] | | | | | | cystostomy [...] | | | | | | | [address] | | | | | | | [place] | | | | | | | [place], [place] | | | | | | | [address] | +--------+--------+ + + + + Encounter [...] | | | | Mailcode: CH10U | [place], [place] | | | | | [facility] | [address] | | | | | and Healing, | [phone] | | | | | [facility] | | | | | | Floor [place], [place] | | | | | | [address] | | | | | | [phone] | | | +--------+ + + + [...] Armand Ordonez MD - 01/22/2011 12:51 PM [email or web address], former patient of Dr. Canchola, is an inpat ient at [facility] for at least 3 more years. [...] | + +--------+ + + + | SD CYSTOURETHROSCOPY | Routin | 01/22/2011 | Urinary retention | Results for this | | | e | | | procedure are in the | | | | | | results section. | + +--------+ + + + documented in this encounter Results SD CYSTOURETHROSCOPY (01/22/2011) + + + | Narrative [...]
--- OUTSIDE RECORDS SUMMARY | ~2019-11-25 | XMS | Encounter Summary ---
Demographics + + + | Address | GENERAL DELIVERY | | | [place] [address] | + + + | Home Phone [...] Team Providers + +------+ + | Care Wireless Field Technician Name | Role | Phone [...] | | | PROVIDER PER | CH10U [place] | | | | | | PT | for Health | | | | | | | and Healing, | | | | | | | Building [address], | | | | | | | 10th Floor | | | | | | | [place], [place] | | | | | | | [address] | | | | | | | Phone: | | | | | | | [phone] | | | | | | | Fax: | | | | | | | [phone] | +--------+--------+ + + + + Encounter [...] | | | | Mailcode: CH10U | [facility] [place] | | | | | [facility] | [address] | | | | | and Healing, | [phone] | | | | | [facility] | | | | | | Floor [place], [place] | | | | | | [address] | | | | | | [phone] | | | +--------+---------+ + + + [...] PDT12 days s/p open suprapubic cystostomy for spa concierge 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 Has had ER visits [...] out of wound for easy remov al/change [facility] present and packing reviewed. A/P: Wound [...]
--- OUTSIDE RECORDS SUMMARY | ~2019-11-25 | XMS | Encounter Summary ---
Demographics + + + | Address | GENERAL DELIVERY | | | [place] [address] | + + + | Home Phone [...] Team Providers + +------+ + | Care Ship Fitter Name | Role | Phone | + +------+ + | [place] | PCP | | + +------+ + Encounter Details +--------+ + + + + | Date | Type | Department | Care Team | Description | +--------+ + + + + | 08/11/ | Telephone | [facility] | Jeancarlos Marley MD | | | 2008 | | Center [place] [address] [address] | [address] | | | | | [address] | [place], [place] | | | | | for Health and | [address] | | | | | [facility], [facility] 2 | [phone] | | | | | [place], [place] | | | | | | [address] | | | | | | [phone] | | | +--------+ + + + [...] + + | [facility] | [address] | [place] [address] | | | PATHOLOGY | [address] | | | + + + + + | [facility] DEPARTMENT | [address] | [place] [address] | | | PATHOLOGY | [address] [...] + + | [facility] | [address] | [place] [address] | | | PATHOLOGY | [address] | | | + + + + + | [facility] | [address] | [place] [address] | | | PATHOLOGY | [address] [...] Performed At | + + + | [id number] Estimated GFR > 60 mL/min/1.73 sq m if non- | [facility] | | [place] [id number] Estimated GFR > 60 mL/min/1.73 sq m if | DEPARTMENT OF | | [place] GFR is estimated using the MDRD equation [...] + + + | [facility] | [address] | [place] [address] | | | PATHOLOGY | [address] | | | + + + + + | [facility] | [address] | [place] [address] | | | PATHOLOGY | [address] | | | + + + + + documented in this encounter Visit Diagnoses + + | Diagnosis | + + | Chronic hepatitis C without mention of hepatic coma - Primary | + + documented in this encounter"
--- OUTSIDE RECORDS SUMMARY | ~2019-11-25 | XMS | Encounter Summary ---
Demographics + + + | Address | GENERAL DELIVERY | | | [place] [address] | + + + | Home Phone [...] Team Providers + +------+ + | Care Metal Neutralizer Name | Role | Phone | + [...] Physician's | | | | | | [address], [address] Floor | | | | | | [place], [place] | | | | | | [address] | | | | | | [phone] | | | +--------+ + + + [...] + + | Performing | Address | City/State/[facility] | Phone Number | | Organization | | | | + +---------+ + + | [facility] DEPARTMENT OF | | | | | RADIOLOGY | | | | + +---------+ + + documented in this encounter Visit Diagnoses Not on filedocumented in this encounter"
--- OUTSIDE RECORDS SUMMARY | ~2019-11-25 | XMS | Encounter Summary ---
Demographics + + + | Address | GENERAL DELIVERY | | | [place] [address] | + + + | Home Phone [...] Team Providers + +------+ + | Care Marshmallow Machine Operator Name | Role | Phone [...] Hepatic Coma | | | | [place], [facility] floor | | | | | | [place], [place] | | | | | | [address] | | | | | | [phone] | | | +--------+------+ + + + [...] | + + + + + | [facility] DEPARTMENT OF | [address] | [place] [address] | | | PATHOLOGY | [address] | | | + + + + + | [facility] OF | [address] | [place] [address] | | | PATHOLOGY | [address] [...] + + + + | [facility] | [address] [facility] | [place] [address] | | | PATHOLOGY | [address] | | | + + + + + | [facility] | [address] [facility] | [place] [address] | | | PATHOLOGY | [address] [...] + + + + | [facility] | [address] | [place] [address] | | | PATHOLOGY | [address] | | | + + + + + | [facility] | [address] | [place] [address] | | | PATHOLOGY | [address] [...] Performed At | + + + | [id number] Estimated GFR > 60 mL/min/1.73 sq m if non- | [facility] | | [place] [id number] Estimated GFR > 60 mL/min/1.73 sq m if | DEPARTMENT | | [place] GFR is estimated using the MDRD equation [...] + + + + | [facility] | [address] [facility] | [place] [address] | | | PATHOLOGY | [address] | | | + + + + + | [facility] | [address] | [place] [address] | | | PATHOLOGY | [address] | | | + + + + + documented in this encounter Visit Diagnoses + + | Diagnosis | + + | Chronic hepatitis C without mention of hepatic coma | + + documented in this encounter"
--- OUTSIDE RECORDS SUMMARY | ~2019-11-25 | XMS | Encounter Summary ---
Demographics + + + | Address | GENERAL DELIVERY | | | [place] [address] | + + + | Home Phone [...] Team Providers + +------+ + | Care Crab Picker Name | Role | Phone | + [...] | | | | Mailcode: CH10U | [place], [place] | | | | | [facility] | [address] | | | | | and Healing, | [phone] | | | | | Building | | | | | | Floor [place], [place] | | | | | | [address] | | | | | | [phone] | | | +--------+ + + + [...]
--- OUTSIDE RECORDS SUMMARY | ~2019-11-25 | XMS | Encounter Summary ---
Demographics + + + | Address | GENERAL DELIVERY | | | [place] [address] | + + + | Home Phone [...] Team Providers + +------+ + | Care Printed Circuit Photographer Name | Role | Phone | + [...] Floor | | | | | | [place], [place] | | | | | | [address] | | | | | | [phone] | | | +--------+ + + + [...] + +---------+ + + | [facility] DEPARTMENT OF | | | | | RADIOLOGY | | | | + +---------+ + + documented in this encounter Visit Diagnoses Not on filedocumented in this encounter"
--- OUTSIDE RECORDS SUMMARY | ~2019-11-25 | XMS | Encounter Summary ---
Demographics + + + | Address | GENERAL DELIVERY | | | [place] [address] | + + + | Home Phone [...] Team Providers + +------+ + | Care Grain Trimmer Name | Role | Phone | [...] | | | PROVIDER PER | [facility] [place] | | | | | | PT | for Health | | | | | | | and Healing, | | | | | | | Building 1, | | | | | | | 10th Floor | | | | | | | [place], [place] | | | | | | | [address] | | | | | | | Phone: | | | | | | | [phone] | | | | | | | Fax: | | | | | | | [phone] | +--------+--------+ + + + + Encounter [...] | | | Mailcode: CH10U | 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 Has had ER visits [...] out of wound for easy remov al/change [facility] present and packing reviewed. A/P: Wound [...]
--- OUTSIDE RECORDS SUMMARY | ~2019-11-25 | XMS | Encounter Summary ---
Demographics + + + | Address | GENERAL DELIVERY | | | [place] [address] | + + + | Home Phone [...] Team Providers + +------+ + | Care Deliverer Outside Name | Role | Phone | + [...] Appointment Question | | 2009 | | [address] | | | | | | Mailcode: CH10U | | | | | | [facility] | | | | | | and Healing, | | | | | | Building 1, 10th | | | | | | Floor [place], [place] | | | | | | [address] | | | | | | [phone] | | | +--------+ + + + [...]
--- OUTSIDE RECORDS SUMMARY | ~2019-11-25 | XMS | Encounter Summary ---
Demographics + + + | Address | GENERAL DELIVERY | | | [place] [address] | + + + | Home Phone [...] Providers + +------+ + | Care Supervisor Fabrication Name | Role | Phone | + +------+ + | Lakesha River | PCP | | + +------+ + Encounter Details +--------+ + + + + | Date | Type | Department | Care Team | Description | +--------+ + + + + | 08/11/ | Telephone | Dig[facility]ive Health | Jeancarlos Marley MD | | | 2008 | | Center [place] [address] [address] | [address] | | | | | [address] | [place], [place] | | | | | for Health and | [address] | | | | | [facility] 2 | [phone] | | | | | [place], [place] | | | | | | [address] | | | | | | [phone] | | | +--------+ + + + [...] + | [facility] | [address] | [place] [address] | | | PATHOLOGY | [address] | | | + + + + + | [facility] DEPARTMENT | [address] | [place] [address] | | | PATHOLOGY | [address] [...] + | [facility] | [address] | [place] [address] | | | PATHOLOGY | [address] | | | + + + + + | [facility] | [address] | [place] [address] | | | PATHOLOGY | [address] [...] Performed At | + + + | [id number] Estimated GFR > 60 mL/min/1.73 sq m if non- | [facility] | | Albanian [id number] Estimated GFR > 60 mL/min/1.73 sq m if | DEPARTMENT OF | | Albanian GFR is estimated using the MDRD equation [...] + + | [facility] | [address] | [place] [address] | | | PATHOLOGY | [address] | | | + + + + + | [facility] | [address] | [place] [address] | | | PATHOLOGY | [address] | | | + + + + + documented in this encounter Visit Diagnoses + + | Diagnosis | + + | Chronic hepatitis C without mention of hepatic coma - Primary | + + documented in this encounter"
--- OUTSIDE RECORDS SUMMARY | ~2019-11-25 | XMS | Encounter Summary ---
Demographics + + + | Address | GENERAL DELIVERY | | | [place] [address] | + + + | Home Phone [...] Team Providers + +------+ + | Care Ribbon Weaver Name | Role | Phone | [...] | | 2014 | | Center at [facility] [address] | [address] | | | | | [address] [place] | [place], [place] | | | | | for Health and | [address] | | | | | Healing, Building 2 | [phone] | | | | | [place], [place] | | | | | | [address] | | | | | | [phone] | | | +--------+ + + + [...]
--- OUTSIDE RECORDS SUMMARY | ~2019-11-25 | XMS | Encounter Summary ---
Demographics + + + | Address | GENERAL DELIVERY | | | [place] [address] | + + + | Home Phone [...] Team Providers + +------+ + | Care Architectural Model Maker Name | Role | Phone | + +------+ + | Lakesha River | PCP | | + +------+ + Encounter Details +--------+------+ + + + | Date | Type | Department | Care Team | Description | +--------+------+ + + + | 02/27/ | Lab | Laboratory at [facility] | | Chronic Hepatitis C | | 2007 | | [address] | | without Mention of | | | | [place] [facility] | | Hepatic Coma | | | | and Healing, | | | | | | Building 2 | | | | | | [place], [place] | | | | | | [address] | | | | | | [phone] | | | +--------+------+ + + + [...] + + documented in this encounter Results [facility] - INR (PROTHROMBINTIME) (02/28/2008 9:24 AM [...] | + + + + + | [facility] | [facility] | [place] [address] | | | PATHOLOGY | [address] | | | + + + + + | [facility] | [address] [place] [address] | [place] [address] | | | PATHOLOGY | [address] [...] | + + + + + | [facility] | [address] | [place] [address] | | | PATHOLOGY | [address] | | | + + + + + | [facility] | [address] | [place] [address] | | | PATHOLOGY | [address] | | | + + + + + [facility] - COMPLETE METABOLIC SET (02/28/2008 9:24 [...] DEPARTMENT OF | [address] | [place] [address] | | | PATHOLOGY | [address] | | | + + + + + | [facility] | [address] | [place] [address] | | | PATHOLOGY | [address] | | | + + + + + documented in this encounter Visit Diagnoses + + | Diagnosis | + + | Chronic hepatitis C without mention of hepatic coma | + + documented in this encounter"
--- OUTSIDE RECORDS SUMMARY | ~2019-11-25 | XMS | Encounter Summary ---
Demographics + + + | Address | GENERAL DELIVERY | | | [place] [address] | + + + | Home Phone [...] Team Providers + +------+ + | Care Assistant Professor Of Communication Name | Role | Phone | + +------+ + PCP | Unavailable | + +------+ + Reason for Visit + + + | Reason | Comments | + + + | Blood Test Results | Outside labs from [facility] 06/08/14. | + + + Encounter Details +--------+ + + + + | Date | Type | Department | Care Team | Description | +--------+ + + + + | 06/13/ | Documentati | Digestive Health | Jeancarlos Marley MD | Blood Test Results | | 2014 | on | Center at [facility] [address] | [address] | (Outside labs from | | | | [address] | [place], [place] | [facility] | | | | for Health and | [address] | 06/08/14.) | | | | Healing, Building 2 | [phone] | | | | | [place], [place] | | | | | | [address] | | | | | | [phone] | | | +--------+ + + + [...] | | + +---------+ + + | MIKKI WAGONER | | | | + +---------+ + + documented in this encounter Visit Diagnoses Not on filedocumented in this encounter"
--- OUTSIDE RECORDS SUMMARY | ~2019-11-25 | XMS | Encounter Summary ---
Demographics + + + | Address | GENERAL DELIVERY | | | [place] [address] | + + + | Home Phone [...] Team Providers + +------+ + | Care Ap Operator Name | Role | Phone | + +------+ + PCP | Unavailable | + +------+ + Encounter Details +--------+ + + + + | Date | Type | Department | Care Team | Description | +--------+ + + + + | 12/27/ | Telephone | [facility] | Jeancarlos Marley MD | | | 2007 | | Center at [facility] [address] | [address] | | | | | [address] [place] | [place], [place] | | | | | Health and | [address] | | | | | [facility] | [phone] | | | | | [place], [place] | | | | | | [address] | | | | | | [phone] | | | +--------+ + + + [...]
--- OUTSIDE RECORDS SUMMARY | ~2019-11-25 | XMS | Clinical Summary ---
Demographics + + + | Address | GENERAL DELIVERY | | | [place] [address] | + + + | Home Phone [...] Author + + + | Author | [facility] | + + + | Organization | [facility] | + + [...] Team Providers + +------+ + | Care Bicycle Taxi Driver Name | Role | Phone | + +------+ + | Fam Donnelly MD | PCP | | + +------+ + Source Comments G[facility] is fully live on both [facility] and [facility] InPatient.[facility] Allergies + + + + + [...] + +--------+ +--------+-------+---------+--------+ | [place] | AGENCY | xxxxxxxxx | 05/18/19 | | | Agency | | | STATE | | 11-Pre | | | | | | OF | | sent | | | | | | [place] | | | | | | + +--------+ +--------+-------+---------+--------+ | [employer]ATER [employer] MEDICAID | COATER HELPER | [email or web address] | 05/22/19 | | [...] | 1980 | [phone] | [place] [address] | | | linda | | | 3 (Home) | | + +--------+ +--------+ + + | Peng Richardson | Agency | Self | 09/20/ | | GENERAL DELIVERY | | | | | 1980 | [phone] | [place] [address] | | | | | | 3 (Home) | | + +--------+ +--------+ + + Advance Directives + + + + + | Type | Date Recorded | Patient | Explanation | | | | Academic Associate | | + + + + + | Advance | | | | | Directives and | | | | | Living Will | | | | + + + + + | Power of | | | | | Invasive Physician | | | | + + + + +
--- OUTSIDE RECORDS SUMMARY | ~2019-11-25 | XMS | Encounter Summary ---
Demographics + + + | Address | GENERAL DELIVERY | | | [place] [address] | + + + | Home Phone [...] Team Providers + +------+ + | Care Marble Ceiling Installer Name | Role | Phone | [...] Phone communication | | 2009 | | [address] | | | | | | Mailcode: CH10U | | | | | | [facility] | | | | | | and Healing, | | | | | | Building , 10th | | | | | | Floor [place], [place] | | | | | | [address] | | | | | | [phone] | | | +--------+ + + + [...]
--- OUTSIDE RECORDS SUMMARY | ~2019-11-25 | XMS | Encounter Summary ---
Demographics + + + | Address | GENERAL DELIVERY | | | [place] [address] | + + + | Home Phone [...] Providers + +------+ + | Care Mold Stamper Name | Role | Phone | + +------+ + | Jea Robin MD | PCP | | + [...] | | | | | [address] | [place], [place] | | | | | [facility] | [address] | | | | | (MNP/OLD [facility]) | [phone] | | | | | [place], [place] | | | | | | [address] | | | | | | [phone] | | | +--------+ + + + [...] Instructions Instructions Katie Kuo RN - 02/14/2011[facility] After Reyna Catheter [...] from 8:00 4:30, call the Urology Clinic [phone]. After hours, weekend and holidays call the Hospital Customer Support Manager at [phone]. Ask for them to page your doctor. Your doctor is RETURN APPOINTMENT Pre-Scheduled for March 31, 2011 @ 10:45 AM Call the Urology clinic to confirm this appointment . Urology Clinic [phone] Please call the clinic if you need [...]
--- OUTSIDE RECORDS SUMMARY | ~2019-11-25 | XMS | Encounter Summary ---
Demographics + + + | Address | GENERAL DELIVERY | | | [place] [address] | + + + | Home Phone [...] Team Providers + +------+ + | Care Plant Technical Specialist Name | Role | Phone [...] | | | | Mailcode: CH10U | [place], [place] | | | | | [facility] | [address] | | | | | and Healing, | [phone] | | | | | | | | | | | Floor [place], [place] | | | | | | [address] | | | | | | [phone] | | | +--------+ + + + [...]
--- OUTSIDE RECORDS SUMMARY | ~2019-11-25 | XMS | Encounter Summary ---
Demographics + + + | Address | GENERAL DELIVERY | | | [place] [address] | + + + | Home Phone [...] Team Providers + +------+ + | Care Switchboard Wirer Name | Role | Phone | [...] | | 2015 | | Center at [facility] [address] | [address] | | | | | [address] [place] | [facility] [place] | | | | | for Health and | [address] | | | | | Healing, Building 2 | [phone] | | | | | [place], [place] | | | | | | [address] | | | | | | [phone] | | | +--------+ + + + [...]
--- OUTSIDE RECORDS SUMMARY | ~2019-11-25 | XMS | Encounter Summary ---
Demographics + + + | Address | GENERAL DELIVERY | | | [place] [address] | + + + | Home Phone [...] Team Providers + +------+ + | Care Rhit Name | Role | Phone | + [...] | | 2014 | | Center at [facility] [address] | [address] | | | | | [address] [place] | [facility] [place] | | | | | for Health and | [address] | | | | | Healing, Building 2 | [phone] | | | | | [place], [place] | | | | | | [address] | | | | | | [phone] | | | +--------+ + + + [...]
--- OUTSIDE RECORDS SUMMARY | ~2019-11-25 | XMS | Encounter Summary ---
Demographics + + + | Address | GENERAL DELIVERY | | | [place] [address] | + + + | Home Phone [...] Team Providers + +------+ + | Care Copy Supervisor Name | Role | Phone | + +------+ + PCP | Unavailable | + +------+ + Encounter Details +--------+------+ + + + | Date | Type | Department | Care Team | Description | +--------+------+ + + + | 12/23/ | Lab | Laboratory at [facility] | | RUQ Abdominal Pain; | | 2007 | | [address] | | Chronic Hepatitis C | | | | [facility] | | without Mention of | | | | and Healing, | | Hepatic Coma | | | | Building 2 | | | | | | [place], [place] | | | | | | [address] | | | | | | [phone] | | | +--------+------+ + + + [...] | [facility] | [address] | [place] [address] | | | PATHOLOGY | [address] | | | + + + + + | [facility] | [address] | [place] [address] | | | PATHOLOGY | [address] [...] | [facility] | [address] [facility] | [place] [address] | | | PATHOLOGY | [address] | | | + + + + + | [facility] | [address] [facility] | [place] [address] | | | PATHOLOGY | [address] [...] | [facility] | [address] [facility] | [place] [address] | | | PATHOLOGY | [address] | | | + + + + + | [facility] | [address] [facility] | [place] [address] | | | PATHOLOGY | [address] [...] Performed At | + + + | [id number] Estimated GFR > 60 mL/min/1.73 sq m if non- | [facility] | | Ghanaian [id number] Estimated GFR > 60 mL/min/1.73 sq m if | DEPARTMENT OF | | Ghanaian GFR is estimated using the MDRD equation [...] + | [facility] | [address] [facility] | [place] [address] | | | PATHOLOGY | [address] | | | + + + + + | [facility] | [address] [facility] | [place] [address] | | | PATHOLOGY | [address] | | | + + + + + documented in this encounter Visit Diagnoses + + | Diagnosis | + + | RUQ abdominal pain Abdominal pain, right upper quadrant | + + | Chronic hepatitis C without mention of hepatic coma | + + documented in this encounter"
--- OUTSIDE RECORDS SUMMARY | ~2019-11-25 | XMS | Encounter Summary ---
Demographics + + + | Address | GENERAL DELIVERY | | | [place] [address] | + + + | Home Phone [...] Providers + +------+ + | Care Sales Forecast Analyst Name | Role | Phone | + +------+ + PCP | Unavailable | + +------+ + Encounter Details +--------+ + + + + | Date | Type | Department | Care Team | Description | +--------+ + + + + | 06/14/ | Document-Sc | Digestive Health | Jeancarlos Marley MD | | | 2015 | anned | Center at [facility] [address] | [address] | | | | | [address] [place] | [place], [place] | | | | | [facility] Health and | [address] | | | | | [facility] 2 | [phone] | | | | | [place], [place] | | | | | | [address] | | | | | | [phone] | | | +--------+ + + + [...]
--- OUTSIDE RECORDS SUMMARY | ~2019-11-25 | XMS | Encounter Summary ---
Demographics + + + | Address | GENERAL DELIVERY | | | [place] [address] | + + + | Home Phone [...] Team Providers + +------+ + | Care Donor Services Technician Name | Role | Phone | + +------+ + PCP | Unavailable | + +------+ + Reason for Visit + + + | Reason | Comments | + + + | Blood Test Results | Outside labs from [facility] 06/08/14. | + + + Encounter Details +--------+ + + + + | Date | Type | Department | Care Team | Description | +--------+ + + + + | 06/13/ | Documentati | Digestive Health | Jeancarlos Marley MD | Blood Test Results | | 2014 | on | Center at [facility] [address] | [address] | (Outside labs from | | | | [address] | [place], [place] | [facility] | | | | for Health and | [address] | 06/08/14.) | | | | Healing, Building 2 | [phone] | | | | | [place], [place] | | | | | | [address] | | | | | | [phone] | | | +--------+ + + + [...]
--- OUTSIDE RECORDS SUMMARY | ~2019-11-25 | XMS | Encounter Summary ---
Demographics + + + | Address | GENERAL DELIVERY | | | [place] [address] | + + + | Home Phone [...] Providers + +------+ + | Care Public Relations Player Name | Role | Phone | + [...] | | | | | HOSPITAL | [place], [place] | | | | | | [address] | [address] | | | | | | [address] | | | | | | | [place], [place] | | | | | | | [address] | | | | | | | Phone: | | | | | | | [phone] | | | | | | | Fax: | | | | | | | [phone] | | +--------+--------+ + + + + [...] | Voiding dysfunction | | | | [facility] | | | | | | and Healing, | | | | | | Building | | | | | | Floor [facility] [place] | | | | | | [address] | | | | | | [phone] | | | +--------+---------+ + + + [...] + documented in this encounter Progress Notes Wnag Canchola Md - 03/07/2010 11:44 AM Tom [...] He is currently an inpatient in the [facility] for schizo-affective disorder. Since the onset [...] | | | | | | [facility] | | | | | | [address] | | | | [address] | | | | | | [place] [address] | | | | | | [place] [address] | | | | + + + + + + + + | Specimen | + + | Urine - Catheter - | | single | + + + + + + + | Performing | Address | City/State/Zipcode | Phone Number | | Organization | | | | + + + + + | [facility] | [address] [facility] | [place] [address] | | | [facility] | | | | + + + + + documented in this encounter Visit Diagnoses + + | Diagnosis | + + | Retention of urine, unspecified | + + | Voiding dysfunction Unspecified disorder of urethra and urinary tract | + + documented in this encounter
--- OUTSIDE RECORDS SUMMARY | ~2019-11-25 | XMS | Encounter Summary ---
Demographics + + + | Address | GENERAL DELIVERY | | | [place] [address] | + + + | Home Phone [...] Team Providers + +------+ + | Care Cosmetic Sales Name | Role | Phone | [...] | | | | Mailcode: CH10U | [place], [place] | | | | | [facility] | [address] | | | | | and [place], | [phone] | | | | | [facility] | | | | | | Floor [place], [place] | | | | | | [address] | | | | | | [phone] | | | +--------+ + + + [...]
--- OUTSIDE RECORDS SUMMARY | ~2019-11-25 | XMS | Encounter Summary ---
Demographics + + + | Address | GENERAL DELIVERY | | | [place] [address] | + + + | Home Phone [...] Team Providers + +------+ + | Care Ex Assistant/Program Director Name | Role | Phone | [...] | | | | Mailcode: CH10U | [place], [place] | and counseling | | | | [facility] | [address] | | | | | and Healing, | [phone] | | | | | [facility] | | | | | | Floor [facility] [place] | | | | | | [address] | | | | | | [phone] | | | +--------+ + + + [...]
--- OUTSIDE RECORDS SUMMARY | ~2019-11-25 | XMS | Encounter Summary ---
Demographics + + + | Address | GENERAL DELIVERY | | | [place] [address] | + + + | Home Phone | | + + + | Preferred Language | Unknown | + + + | Marital Status | Single | + + + | Pentecostal Affiliation | NON | + + + [...] Team Providers + +------+ + | Care Melter Assistant Name | Role | Phone | [...] Abdominal pain | | 2008 | | Center at [facility] [address] | [address] | | | | | [address] | [place], [place] | | | | | for Health and | [address] | | | | | Healing, Building 2 | [phone] | | | | | [place], [place] | | | | | | [address] | | | | | | [phone] | | | +--------+ + + + [...]
--- OUTSIDE RECORDS SUMMARY | ~2019-11-25 | XMS | Encounter Summary ---
Demographics + + + | Address | GENERAL DELIVERY | | | [place] [address] | + + + | Home Phone [...] Team Providers + +------+ + | Care Washer Cutter Name | Role | Phone | [...] | | 2014 | | Center at [facility] [address] | [address] | | | | | [address] [place] | [place], [place] | | | | | for Health and | [address] | | | | | Healing, Building [address] | [phone] | | | | | [place], [place] | | | | | | [address] | | | | | | [phone] | | | +--------+ + + + [...]
--- OUTSIDE RECORDS SUMMARY | ~2019-11-25 | XMS | Encounter Summary ---
Demographics + + + | Address | GENERAL DELIVERY | | | [place] [address] | + + + | Home Phone [...] + +------+ + | Care Director Of Hospitality Name | Role | Phone | + [...] Abdominal pain | | 2007 | | [place] [address] [address] | [address] | | | | | [address] | [facility] [place] | | | | | for Health and | [address] | | | | | Healing, Building [address] | [phone] | | | | | [place], [place] | | | | | | [address] | | | | | | [phone] | | | +--------+ + + + [...]
--- OUTSIDE RECORDS SUMMARY | ~2019-11-25 | XMS | Encounter Summary ---
Demographics + + + | Address | GENERAL DELIVERY | | | [place] [address] | + + + | Home Phone [...] Team Providers + +------+ + | Care Press Cleaner Name | Role | Phone | [...] Catheter Problem | | 2009 | | [address] | | | | | | Mailcode: CH10U | | | | | | [facility] | | | | | | and Healing, | | | | | | Building [address], [address] | | | | | | Floor [place], [place] | | | | | | [address] | | | | | | [phone] | | | +--------+ + + + [...]
--- OUTSIDE RECORDS SUMMARY | ~2019-11-25 | XMS | Encounter Summary ---
Demographics + + + | Address | GENERAL DELIVERY | | | [place] [address] | + + + | Home Phone [...] Team Providers + +------+ + | Care Job Recruiter Name | Role | Phone | + +------+ + | PericoaRchelleLakesha | PCP | | + +------+ + Encounter Details +--------+ + + + + | Date | Type | Department | Care Team | Description | +--------+ + + + + | 06/16/ | Orders Only | Digestive Health | Jeancarlos Marley MD | Chronic Hepatitis C | | 2007 | | [place] [address] [address] | [address] | without Mention of | | | | [address] | [place], [place] | Hepatic Coma | | | | for Health and | [address] | (Primary Dx) | | | | Healing, Building [address] | [phone] | | | | | [place], [place] | | | | | | [address] | | | | | | [phone] | | | +--------+ + + + [...] this | | FINGERSTICK | e | 8:55 AM | C [...] Performed At | + + + | [id number] Estimated GFR > 60 mL/min/1.73 sq m if non- | [facility] | | 307390 Estimated GFR > 60 mL/min/1.73 sq m [...] | [facility] | [address] [facility] | [place] [address] | | | PATHOLOGY | [address] | | | + + + + + | [facility] | [address] [facility] [address] [facility] | [place] [address] | | | PATHOLOGY | [address] [...] | + + + + + | [facility] DEPARTMENT OF | [address] | [place] [address] | | | PATHOLOGY | [address] | | | + + + + + | [facility] OF | [address] | [place] [address] | | | PATHOLOGY | [address] [...] | + + + + + | [facility] DEPARTMENT OF | [address] | [place] [address] | | | PATHOLOGY | [address] | | | + + + + + | [facility] DEPARTMENT OF | [address] | [place] [address] | | | PATHOLOGY | [address] [...] | + + + + + | [facility] DEPARTMENT | [address] [facility] [address] [facility] | [place] [address] | | | PATHOLOGY | [address] | | | + + + + + | [facility] | [address] [facility] [address] [facility] | [place] [address] | | | PATHOLOGY | [address] | | | + + + + + H - INR (PROTHROMBINTIME) (06/16/2007 8:55 AM PST) [...] | + + + + + | [facility] DEPARTMENT OF | [address] | [place] [address] | | | PATHOLOGY | [address] | | | + + + + + | [facility] DEPARTMENT OF | [address] | [place] [address] | | | PATHOLOGY | [address] [...] by | | | | | | [facility] | | | | | | [employer]. | | | | + + + + + + + + | Specimen | + + | | + + + + + + + | Performing | Address | City/State/Zipcode | Phone Number | | Organization | | | | + + + + + | [facility] | [address] | [place] [address] | | | LABORATORY | | | [...] + + | Test performed by [facility] memory lane syndications. | | + + + + + + + + | Performing | Address | City/State/Zipcode | Phone Number | | Organization | | | | + + + + + | [facility] | [address] | [place] [address] | | | LABORATORY | | | [...] change effective 03/08/07 | | | [facility] ([facility] | | | [address] [place], [place] | | | [address] | | + + + + + + + + | Performing | Address | City/State/Zipcode | Phone Number | | Organization | | | | + + + + + | [facility] | [address] | [place] [address] | | | LABORATORY | | | [...] Iron and TIBC, Serum Test performed by [facility] | | | [facility] memory lane syndications. | | + + + + + + + + | Performing | Address | City/State/Zipcode | Phone Number | | Organization | | | | + + + + + | [facility] | [address] | [place] [address] | | | LABORATORY | | | [...] + + + + | [facility] | [address] | [place] [address] | | | [facility] | [address] | | | | | AVE. | | | + + + + + documented in this encounter Visit Diagnoses + + | Diagnosis | + + | Chronic hepatitis C without mention of hepatic coma - Primary | + + documented in this encounter
--- OUTSIDE RECORDS SUMMARY | ~2019-11-25 | XMS | Encounter Summary ---
Demographics + + + | Address | GENERAL DELIVERY | | | [place] [address] | + + + | Home Phone [...] Team Providers + +------+ + | Care Studio Manager Name | Role | Phone | [...] | Services | | Chronic | Alonzo Daivla MD | MD Jeancarlos | | | Required | | hepatitis C | [address] | [address] | | | | | without | [address] | Ave | | | | | mention of | [place], | [place], [place] | | | | | hepatic coma | [place] [address] | [address] | | | | | Procedures | Phone: | Phone: | | | | | CONSULT TO | [phone] | [phone] | | | | | HEPATOLOGY | Fax: | Fax: | | | | | | [phone] | [phone] | +--------+ + + + + + Encounter Details +--------+---------+ + + + | Date | Type | Department | Care Team | Description | +--------+---------+ + + + | 02/27/ | Office | Digestive Health | Jeancarlos Rich MD | Chronic Hepatitis C | | 2007 | Visit | Center at [facility] [address] | [address] | without Mention of | | | | [address] | [place], [place] | Hepatic Coma | | | | for Health and | [address] | (Primary Dx) | | | | Healing, [address] | [phone] | | | | | [place], [place] | | | | | | [address] | | | | | | [phone] | | | +--------+---------+ + + + [...] [facility] | [address] | [place] [address] | | | PATHOLOGY | [address] | | | + + + + + | [facility] | [address] [place] [address] [address] | [place] [address] | | | PATHOLOGY | [address] [...] [facility] | [address] | [place] [address] | | | PATHOLOGY | [address] | | | + + + + + | [facility] | [facility] [address] | [place] [address] | | | PATHOLOGY | [address] | | | + + + + + [facility] - COMPLETE METABOLIC SET (02/28/2008 9:24 [...] DEPARTMENT OF | [address] | [place] [address] | | | PATHOLOGY | [address] | | | + + + + + | [facility] | [address] | [place] [address] | | | PATHOLOGY | [address] | | | + + + + + documented in this encounter Visit Diagnoses + + | Diagnosis | + + | Chronic hepatitis C without mention of hepatic coma - Primary | + + documented in this encounter"
--- OUTSIDE RECORDS SUMMARY | ~2019-11-25 | XMS | Encounter Summary ---
Demographics + + + | Address | GENERAL DELIVERY | | | [place] [address] | + + + | Home Phone [...] Providers + +------+ + | Care Medical Artist Name | Role | Phone | + +------+ + | Etienne Barnes PA-C | PCP | | + +------+ + Encounter Details +--------+ + + + + | Date | Type | Department | Care Team | Description | +--------+ + + + + | 06/15/ | Document-Sc | UNKNOWN DEPARTMENT | Unknown . | | | 2014 | anned | [address] [facility] | | | | | | [address] | | | | | | [place], [place] | | | | | | [address] | | | +--------+ + + + [...]
--- OUTSIDE RECORDS SUMMARY | ~2019-11-25 | XMS | Encounter Summary ---
Demographics + + + | Address | GENERAL DELIVERY | | | [place] [address] | + + + | Home Phone [...] Team Providers + +------+ + | Care Lumber Straightener Name | Role | Phone | [...] | | 2008 | | Center at [facility] [address] | [address] | | | | | [address] | [place], [place] | | | | | for Health and | [address] | | | | | Healing, Building [address] | [phone] | | | | | [place], [place] | | | | | | [address] | | | | | | [phone] | | | +--------+ + + + [...]
--- OUTSIDE RECORDS SUMMARY | ~2019-11-25 | XMS | Encounter Summary ---
Demographics + + + | Address | GENERAL DELIVERY | | | [place] [address] | + + + | Home Phone [...] Providers + +------+ + | Care Sales Support Administrator Name | Role | Phone | + +------+ + | Etienne Barnes PA-C | PCP | | + +------+ + Encounter Details +--------+ + + + + | Date | Type | Department | Care Team | Description | +--------+ + + + + | 09/14/ | Document-Sc | UNKNOWN DEPARTMENT | Unknown . | | | 2014 | anned | [address] [facility] | | | | | | [address] | | | | | | [place], [place] | | | | | | [address] | | | +--------+ + + + [...]
--- OUTSIDE RECORDS SUMMARY | ~2019-11-25 | XMS | Encounter Summary ---
Demographics + + + | Address | GENERAL DELIVERY | | | [place] [address] | + + + | Home Phone [...] Team Providers + +------+ + | Care Canary Raiser Name | Role | Phone | + [...] | | 2007 | | [place] [address] [address] | [address] | without Mention of | | | | [address] | [place], [place] | Hepatic Coma | | | | for Health and | [address] | (Primary Dx) | | | | Healing, Building [address] | [phone] | | | | | [place], [place] | | | | | | [address] | | | | | | [phone] | | | +--------+ + + + [...] Performed At | + + + | [id number] Estimated GFR > 60 mL/min/1.73 sq m if non- | [facility] | | 167891 Estimated GFR > 60 mL/min/1.73 sq m [...] + | [facility] | [address] [facility] | [place] [address] | | | PATHOLOGY | [address] | | | + + + + + | [facility] | [address] [facility] | [place] [address] | | | PATHOLOGY | [address] [...] | + + + + + | [facility] DEPARTMENT OF | [address] | [place] [address] | | | PATHOLOGY | [address] | | | + + + + + | [facility] | [address] | [place] [address] | | | PATHOLOGY | [address] [...] | + + + + + | [facility] DEPARTMENT OF | [address] | [place] [address] | | | PATHOLOGY | [address] | | | + + + + + | [facility] DEPARTMENT OF | [address] | [place] [address] | | | PATHOLOGY | [address] [...] | + + + + + | [facility] DEPARTMENT | [address] [facility] | [place] [address] | | | PATHOLOGY | [address] | | | + + + + + | [facility] | [address] [facility] | [place] [address] | | | PATHOLOGY | [address] [...] | + + + + + | [facility] DEPARTMENT OF | [address] | [place] [address] | | | PATHOLOGY | [address] | | | + + + + + | [facility] DEPARTMENT OF | [address] | [place] [address] | | | PATHOLOGY | [address] [...] by | | | | | | [facility] | | | | | | [employer]. | | | | + + + + + + + + | Specimen | + + | | + + + + + + + | Performing | Address | City/State/Zipcode | Phone Number | | Organization | | | | + + + + + | [facility] | [address] | [place] [address] | | | LABORATORY | | | [...] + + | Test performed by [facility]. | | + + + + + + + + | Performing | Address | City/State/Zipcode | Phone Number | | Organization | | | | + + + + + | [facility] | [address] | [place] [address] | | | LABORATORY | | | [...] change effective 03/08/07 | | | [facility] | | | [address] [place], [place] | | | [address] | | + + + + + + + + | Performing | Address | City/State/Zipcode | Phone Number | | Organization | | | | + + + + + | [facility] | [address] | [place] [address] | | | LABORATORY | | | [...] Iron and TIBC, Serum Test performed by [facility] | | | [facility]. | | + + + + + + + + | Performing | Address | City/State/Zipcode | Phone Number | | Organization | | | | + + + + + | [facility] | [address] | [place] [address] | | | LABORATORY | | | [...] of | | | | | | [place]. | | | | + + + + + + + + | Specimen | + + | | + + + + + + + | Performing | Address | City/State/Zipcode | Phone Number | | Organization | | | | + + + + + | [facility] | [place] [address] | [place] [address] | | | [facility] | [address] | | | | | AVE. | | | + + + + + documented in this encounter Visit Diagnoses + + | Diagnosis | + + | Chronic hepatitis C without mention of hepatic coma - Primary | + + documented in this encounter
--- OUTSIDE RECORDS SUMMARY | ~2019-11-25 | XMS | Encounter Summary ---
Demographics + + + | Address | GENERAL DELIVERY | | | [place] [address] | + + + | Home Phone [...] Team Providers + +------+ + | Care Chocolate Maker Name | Role | Phone | [...] Rd | | | | | | [place], [place] | | | | | | [address] | | | +--------+ + + + [...]
--- OUTSIDE RECORDS SUMMARY | ~2019-11-25 | XMS | Encounter Summary ---
Demographics + + + | Address | GENERAL DELIVERY | | | [place] [address] | + + + | Home Phone [...] Team Providers + +------+ + | Care Montessori Preschool Teacher Name | Role | Phone | + +------+ + PCP | Unavailable | + +------+ + Encounter Details +--------+ + + + + | Date | Type | Department | Care Team | Description | +--------+ + + + + | 06/15/ | Document-Sc | Digestive Health | Jeancarlos Marley MD | | | 2015 | anned | Center at [facility] [address] | [address] | | | | | [address] | [place], [place] | | | | | [facility] and | [address] | | | | | [facility] 2 | [phone] | | | | | [place], [place] | | | | | | [address] | | | | | | [phone] | | | +--------+ + + + [...]
[~2019-11-25 17:03] MED LIST changes: +PREDNISONE20 MG PO
--- NOTE | 2019-11-26 09:14 | EKG ---
[facility] [address] [facility] [place] [address] Signed Normal sinus rhythm Incomplete right bundle branch block Borderline ECG When compared with ECG of 14-FEB-2019 13:46, T wave inversion less evident in Anterior leads Confirmed by ARNOL PIÑA MD ([id number]) on 11/26/2019 9:13:54 AM Electronically Signed By: ARNOL PIÑA MD 11/26/19 0914 PATIENT NAME: KAUSHIKAAILYAH SELLERSTON Electrocardiogram DATE OF : 78 PHYSICIAN: ARNOL PIÑA MD REPORT #: [id number] REPORT IS CONFIDENTIAL AND NOT TO BE RELEASED WITHOUT AUTHORIZATION
== END 2019-11-25 21:17 | disposition home or self-care (01) ==
LOC: ED 17:03
DX: R07.9 Chest pain, unspecified (principal); I10 Essential (primary) hypertension; F31.9 Bipolar disorder, unspecified; F20.9 Schizophrenia, unspecified; F41.9 Anxiety disorder, unspecified; F17.200 Nicotine dependence, unspecified, uncomplicated; Z88.1 Allergy status to other antibiotic agents; Z88.2 Allergy status to sulfonamides; Z88.8 Allergy status to other drugs, medicaments and biological substances; Z91.048 Other nonmedicinal substance allergy status
CPT/HCPCS: 71260; 74177; 80053; 84484; 85025; 93005; 93010; 99284-25; Q9967

== ENCOUNTER 2020-03-05 20:57 | Emergency (ER) | payer OTHER ==
[~2020-03-05] VITALS: Ht 177.8 cm; Wt 108.9 kg
--- OUTSIDE RECORDS SUMMARY | ~2020-03-05 | XMS | Encounter Summary ---
Demographics + + + | Address | GENERAL DELIVERY | | | [place] [address] | + + + | Home Phone | | + + + | Preferred Language | Unknown | + + + | Marital Status | Single | + + + | Gnosticist Affiliation | NON | + + + | Race | White | + + + | Ethnic Group | Not or | + + + Author + + + | Author | [facility] | + + + | Organization | [facility] | + + + | Address | Unknown | + + + | Phone | Unavailable | + + + Support + + +---------+ + | Name | Relationship | Address | Phone | + + +---------+ + | Per None, PT | ECON | Unknown | Unavailable | + + +---------+ + Care Team Providers + +------+ + | Care Crank Hand Name | Role | Phone | + +------+ + | Etienne Barnes PA-C | PCP | | + +------+ + Encounter Details +--------+ + + + + | Date | Type | Department | Care Team | Description | +--------+ + + + + | 09/14/ | Document-Sc | UNKNOWN DEPARTMENT | Unknown . | | | 2014 | anned | [address] [facility] | | | | | | [address] | | | | | | [place], [place] | | | | | | [address] | | | +--------+ + + + [...] on file | | + + + documented as of this encounter Procedure Inna San - 09/14/2014 3:04 PM PDTAssociated Order(s): RADIOLOGY documented in this encounter Plan of Treatment [...] | Procedure Note | + + | Inna Stark - 09/14/2014 3:04 PM PDT | + + documented in this encounter Visit Diagnoses Not on filedocumented in this encounter"
--- OUTSIDE RECORDS SUMMARY | ~2020-03-05 | XMS | Encounter Summary ---
Demographics + + + | Address | GENERAL DELIVERY | | | [place] [address] | + + + | Home Phone [...] Team Providers + +------+ + | Care Transfer Station Attendant Name | Role | Phone | + +------+ + | Jae Robin MD | PCP | | + +------+ + Reason for Visit +--------+--------+ + | Reason | Onset | Comments | | | Date | | +--------+--------+ + | Pain | 03/13/ | | | | 2010 | | +--------+--------+ + Encounter Details +--------+ + + + + | Date | Type | Department | Care Team | Description | +--------+ + + + + | 03/13/ | Telephone | Urology Adult | Armand Adkins MD | Pain | | 2010 | | [address] | [address] | | | | | Mailcode: CH10U | [place], [place] | | | | | [facility] | [address] | | | | | and Healing, | [phone] | | | | | [facility] | | | | | | Floor [place], [place] | | | | | | [address] | | | | | | [phone] | | | +--------+ + + + [...] + + documented as of this encounter Miscellaneous Notes Telephone Encounter - Oly Silverman RN - 03/13/2011 9:59 AM CLARII spoke with Noris at the [facility] today. She calls to request an appt time with Dr. Wen garcia for a catheter check. The Sp tube was placed 02/14/2011. He is having pain at the Sp tu be site. The pt is requesting Vicodin. The catheter is draining, at times needs to be reposi tioned. He was just seen at the wound care clinic yesterday. No fevers reported. He finished his antibiotic yesterday. The Hospital MD is requesting that he be seen next week. I will i nform Dr. adkins of the call. The pt is scheduled for Mar 17 at 11:30. Noris jacinto. documented in this encounter Plan of Treatment Not on filedocumented as of this encounter Visit Diagnoses Not on filedocumented in this encounter"
--- OUTSIDE RECORDS SUMMARY | ~2020-03-05 | XMS | Encounter Summary ---
Demographics + + + | Address | GENERAL DELIVERY | | | [place] [address] | + + + | Home Phone | | + + + | Preferred Language | Unknown | + + + | Marital Status | Single | + + + | Mandaeism Affiliation | NON | + + + | Race | White | + + + | Ethnic Group | Not or | + + + Author + + + | Author | [facility] | + + + | Organization | [facility] | + + + | [...] Providers + +------+ + | Care Machine Room Engineer Name | Role | Phone | + [...] | | Urology | | No | Zzdos Uro | | | | | | Referring | Genrl Chh1 | | | | | | Provider Per | [address] | | | | | | Patient NO | Ave | | | | | | REFERRING | Mailcode: | | | | | | PROVIDER PER | CH10U [place] | | | | | | PT | for Health | | | | | | | and Healing, | | | | | | | Building 1, | | | | | | | 10th Floor | | | | | | | [place], [place] | | | | | | | [address] | | | | | | | Phone: | | | | | | | [phone] | | | | | | | Fax: | | | | | | | [phone] | +--------+--------+ + + + + Encounter Details +--------+---------+ + + + | Date | Type | Department | Care Team | Description | +--------+---------+ + + + | 02/26/ | Office | Urology Adult | Armand Ordonez MD | Urinary retention; | | 2010 | Visit | [address] | [address] | Cellulitis | | | | Mailcode: CH10U | [facility] [place] | | | | | 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 Has had ER visits [...] out of wound for easy remov al/change [facility] present and packing reviewed. A/P: Wound [...]
--- OUTSIDE RECORDS SUMMARY | ~2020-03-05 | XMS | Encounter Summary ---
Demographics + + + | Address | GENERAL DELIVERY | | | [place] [address] | + + + | Home Phone | | + + + | Preferred Language | Unknown | + + + | Marital Status | Single | + + + | Uatsdin Affiliation | NON | + + + | Race | White | + + + | Ethnic Group | Not or | + + + Author + + + | Author | [facility] | + + + | Organization | [facility] | + + + [...] Team Providers + +------+ + | Care Appointment Scheduler Name | Role | Phone | + +------+ + | Jae Robin MD | PCP | | + +------+ + Reason for Visit + +--------+ + | Reason | Onset | Comments | | | Date | | + +--------+ + | Lab findings, | 03/19/ | | | teaching, guidance, | 2010 | | | and counseling | | | + +--------+ + Encounter Details +--------+ + + + + | Date | Type | Department | Care Team | Description | +--------+ + + + + | 03/19/ | Telephone | Urology Adult | Armand Ordonez MD | Lab findings, | | 2010 | | [address] | [address] | teaching, guidance, | | | | Mailcode: CH10U | [place], [place] | and counseling | | | | [facility] | [address] | | | | | and Healing, | [phone] | | | | | | | | | | | Floor [place], [place] | | | | | | [address] | | | | | | [phone] | | | +--------+ + + + [...] Telephone Encounter - Oly Silverman RN - 03/19/2011 11:48 AM PDTNote from 03/17/11 fax ed to Noris as requested. elephone Encounter - Louis Medrano - 03/19/2011 11:20 AM PDTTifkatherine called from the [facility] in [place] wanting to have a summary of pt. Richardson's most recent visi t with Dr. Ordonez faxed down to her. Their fax number is [phone]. documented in this encounter Plan of Treatment Not on filedocumented as of this encounter Visit Diagnoses Not on filedocumented in this encounter"
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
--- OUTSIDE RECORDS SUMMARY | ~2020-03-05 | XMS | Encounter Summary ---
Demographics + + + | Address | [address] | | | [place] [address] | + + + | Home Phone | | + + + | Preferred Language | Unknown | + + + | Marital Status | Single | + + + | Adventist Affiliation | NON | + + + | Race | White | + + + | Ethnic Group | Not or | + + + Author + + + | Author | [facility] | + + + | Organization | [facility] | + + + | Address | Unknown | + + + | Phone | Unavailable | + + + Support + + +---------+ + | Name | Relationship | Address | Phone | + + +---------+ + | Per None, PT | ECON | Unknown | Unavailable | + + +---------+ + Care Team Providers + +------+ + | Care Vp Respiratory Name | Role | Phone | + +------+ + PCP | Unavailable | + +------+ + Reason for Visit +--------+--------+ + | Reason | Onset | Comments | | | Date | | +--------+--------+ + | Other | 06/21/ | Returning your call. | | | 2007 | | +--------+--------+ + Encounter Details +--------+ + + + + | Date | Type | Department | Care Team | Description | +--------+ + + + + | 06/21/ | Telephone | Digestive Health | Jeancarlos Marley MD | Other (Returning | | 2007 | | Center at [facility] [address] | [address] | your call.) | | | | [address] | [place], [place] | | | | | for Health and | [address] | | | | | [facility], [facility] | [phone] | | | | | [place], [place] | | | | | | [address] | | | | | | [phone] | | | +--------+ + + + [...] this encounter Miscellaneous Notes Telephone Encounter - Monique Mcmillan - 06/22/2007 5:39 PM PSTCalled and spoke to stella's . Informed her that the u/s order was faxed to [place]; they should call them to sched. elephone Encounter - Noemy Cisneros - 06/21/2007 3:36 PM PSTMonique Peng's is returning your call and wanting to know if he can get his abdominal ultras ound done locally in [facility]. documented in this encounter Plan of Treatment Not on filedocumented as of this encounter Visit Diagnoses Not on filedocumented in this encounter"
--- OUTSIDE RECORDS SUMMARY | ~2020-03-05 | XMS | Encounter Summary ---
Demographics + + + | Address | [address] | | | [place] [address] | + + + | Home Phone [...] Team Providers + +------+ + | Care Mailing Machine Helper Name | Role | Phone | [...] | | | | Mailcode: CH10U | [place], [place] | | | | | [facility] | [address] | | | | | and [place], | [phone] | | | | | [facility] | | | | | | Floor [place], [place] | | | | | | [address] | | | | | | [phone] | | | +--------+ + + + [...]
--- OUTSIDE RECORDS SUMMARY | ~2020-03-05 | XMS | Encounter Summary ---
Demographics + + + | Address | [address] | | | [place] [address] | + + + | Home Phone | | + + + | Preferred Language | Unknown | + + + | Marital Status | Single | + + + | Moravian Affiliation | NON | + + + | Race | White | + + + | Ethnic Group | Not or | + + + Author + + + | Author | [facility] | + + + | Organization | [facility] | + + + | Address | Unknown | + + + | Phone | Unavailable | + + + Support + + +---------+ + | Name | Relationship | Address | Phone | + + +---------+ + | Per None, PT | ECON | Unknown | Unavailable | + + +---------+ + Care Team Providers + +------+ + | Care Fish Straightener Name | Role | Phone | + +------+ + | Etienne [place] PA-C | PCP | | + +------+ + Encounter Details +--------+ + + + + | Date | Type | Department | Care Team | Description | +--------+ + + + + | 06/15/ | Document-Sc | UNKNOWN DEPARTMENT | Unknown . | | | 2014 | anned | [address] | | | | | | [address] | | | | | | [place], [place] | | | | | | [address] | | | +--------+ + + + [...] + documented as of this encounter Procedure Malvin Stark, Faculty - 09/14/2014 1:01 PM PDTAssociated Order(s): RADIOLOGY documented in this [...]
--- OUTSIDE RECORDS SUMMARY | ~2020-03-05 | XMS | Encounter Summary ---
Demographics + + + | Address | [address] | | | [place] [address] | + + + | Home Phone [...] Team Providers + +------+ + | Care Fleet Manager Name | Role | Phone | [...] | | | Ave Mailcode: [address] | [place], [place] | | | | | [facility] | [address] | | | | | and Healing, | [phone] | | | | | [facility] | | | | | | Floor [place], [place] | | | | | | [address] | | | | | | [phone] | | | +--------+ + + + [...] Notes Telephone Encounter - Monique Mcmillan - 07/01/2007 2:03 PM PSTPt notified.Electronically si gned by Monique Mcmillan at 07/01/2007 2:03 PM PSTTelephone Encounter - Jeancarlos Marley - 07/01/19 9:22 AM PSTJo, Please tell patient that I reviewed all his labs and his ultrasound and everything looks fi ne with no surprises. Please keep working on losing weight. elephone Encounter - Monique Mcmillan - 06/30/2007 5:00 PM [facility]O [facility] will give to Dr. Marley tomorrow. elephone Encounter - Monique Mcmillan - 06/30/2007 4:06 PM PSTWritten request faxed to [facility]. elephone Encounter - Irineo Wilhelm - 06/30/2007 3:27 PM PSTPT phillip ng for ultrasound results done last week please call pt back at home. Explained results not yet in computer. documented i n this encounter Plan of Treatment Not on filedocumented as of this encounter Visit Diagnoses Not on filedocumented in this encounter"
--- OUTSIDE RECORDS SUMMARY | ~2020-03-05 | XMS | Encounter Summary ---
Demographics + + + | Address | [address] [place] | | | [place] [address] | + + + | Home Phone [...] Team Providers + +------+ + | Care Tilt Tray Driver Name | Role | Phone | + +------+ + | PericoMarvLakesha | PCP | | + +------+ + Encounter Details +--------+ + + + + | Date | Type | Department | Care Team | Description | +--------+ + + + + | 08/21/ | Hospital | Diagnostic | | | | 2008 | Encounter | Radiology at [facility] | | | | | | [address] | | | | | | [address] [facility] | | | | | | [place], [address] Floor | | | | | | [place], [place] | | | | | | [address] | | | | | | [phone] | | | +--------+ + + + [...] | | | Maria GuadalupeSTATUS FINAL / | | | | | | Clau [...] | | + +---------+ + + | [facility] | | | | | RADIOLOGY | | | | + +---------+ + + documented in this encounter Visit Diagnoses Not on filedocumented in this encounter"
--- OUTSIDE RECORDS SUMMARY | ~2020-03-05 | XMS | Encounter Summary ---
Demographics + + + | Address | [address] | | | [place] [address] | + + + | Home Phone [...] Team Providers + +------+ + | Care Plating Inspector Name | Role | Phone | [...] | | | | | HOSPITAL | [place], [place] | | | | | | [address] | [address] | | | | | | [address] | | | | | | | [place], [place] | | | | | | | [address] | | | | | | | Phone: | | | | | | | [phone] | | | | | | | Fax: | | | | | | | [phone] | | +--------+--------+ + + + + [...] | Voiding dysfunction | | | | [facility] | | | | | | and Healing, | | | | | | Building | | | | | | Floor [facility] [place] | | | | | | [address] | | | | | | [phone] | | | +--------+---------+ + + + [...] He is currently an inpatient in the [facility] for schizo-affective disorder. Since the onset of [...] Lab) | | | | | | [facility] | | | | | | [address] | | | | | | [place] [address] | | | | | | [place] [address] | | | | + + + + + + + + | Specimen | + + | Urine - Catheter - | | single | + + + + + + + | Performing | Address | City/State/Zipcode | Phone Number | | Organization | | | | + + + + + | [facility] | [address] | [place] [address] | | | [facility] | | | | + + + + + documented in this encounter Visit Diagnoses + + | Diagnosis | + + | Retention of urine, unspecified | + + | Voiding dysfunction Unspecified disorder of urethra and urinary tract | + + documented in this encounter
--- OUTSIDE RECORDS SUMMARY | ~2020-03-05 | XMS | Encounter Summary ---
Demographics + + + | Address | GENERAL DELIVERY | | | [place] [address] | + + + | Home Phone [...] Team Providers + +------+ + | Care Cell Biologist Name | Role | Phone | + [...] | abdominal | [address] | [address] | | | | | pain | [facility] | Ave | | | | | Neurogenic | Rd | [facility] [place] | | | | | bladder | [facility] [place] | [address] | | | | | Procedures | [id number] | Phone: | | | | | CONSULT TO | Phone: | [phone] | | | | | UROLOGY | [phone] | Fax: | | | | | | Fax: | [phone] | | | | | | [phone] | | +--------+--------+ + + + + Reason for Visit + + + | Reason | Comments | + + + | Catheter Problem | | + + + Encounter Details +--------+ + + + + | Date | Type | Department | Care Team | Description | +--------+ + + + + | 02/22/ | Emergency | [facility] Emergency | Fe Walter, | | | 2017 - | | Department [address] | Edith Kelley MD [address] | | | | [address] | Brad Fabian [address] | | | 02/23/ | | [facility] | [address], [place] | | | 2017 | | [place], [place] | [address] | | | | | [address] | | | | | | [phone] | | | +--------+ + + + [...] for coming to the Emergency Department at [facility] for your care. You were evaluated [...] other well. -Be careful about taking other tcet-ogn-sknxvda medicines, which may contain acetaminophen or ibuprofen and could lead to toxicity. -If you have liver disease, kidney disease or stomach ulcers, the standard doses of these m edicines may be too high for you. -We expect that your pain will improve over the next few days, and do not expect that you w ill need to continue these medicines freight sorter. You should talk to your primary care doctor about ongoing pain management, and ask for guidance if you have other questions about safe m edication dosing. We feel that you may go home at this time, however, we are only evaluating you at this [facility] and your condition may change. Please [...] your primary care doctor for follow-up and ongoin care. Care delivered in the Emergency Department should not be considered as a substitute for our [facility] care and/or specialist care for ongoing medical issues, and it is important that you fo llow up as described above. Thank you for letting us care for you at the [facility] Emergency Department today. Note: If you [...] + + documented as of this encounter ED Notes Herve Smith RN - 02/23/2017 1:56 AM PDTRN Discharge Note: Condition at time of discharge: Patient A&O x4, vital signs stable and very agitated. Pat ient ambulating with steady gait. Discharge instructions: Patient and sister provided discharge instructions. Understanding of instructions is evidenced by review of follow-up plan, voiced understanding of plan of ca re and questions asked and answered. Written discharge instructions provided and reviewed. Prescriptions provided and reviewed. Destination: Patient discharged to home via POV with self and family. Education provided to the patient/family: Follow up with urology. Herve Lawton RN - 017 1:52 AM PDTPt left the department without seeing MDs. Sister and niece apologized for p t's behavior prior to leaving and talked with MD Mcqueen. Prescription from given to pt's sister prior to pt leaving. Unable to give d/c instructions. Herve Lawton RN - 02/23/2017 1:28 AM PDTWhile collecting urine for poc testing, pt is getting more and more agitated stating "I am going to check out . Nothing fucking is being done for me, the doctors don't care. My mother was with me when I went to see a doctor in [place] and she is the witness". Acknowledged pt's frustration. MD Yeager notified and aware. states she will go see pt after seeing incoming tr dedra pt. Suzan VALLE, Edith Kelley - 02/23/2017 12:31 AM PDTFormatting of this note might be different from the [facility] Shared Provider Note, co-authored by Akil Mcqueen MD and Edith Walter MD: MADELAINE Richardson is a 36 y/o M with a history of neurogenic bladder with indwelling fole y who presents with suprapubic pain. Patient states that he "has something stuck in his bladder" and that it is "a piece of a ca theter." States that the pain is now unbearable. Pain began 7-9 days ago. Constant, suprapub ic, severe, sharp, progressively worsening, 02/24. Aggravated by the presence of the linares. No alleviating factors. Has tried tylenol and ibuprofen without relief. Also tried ativan wi thout relief. Had hematuria which has since resolved. Denies fever, chills, chest pain, shor tness of breath, nausea, vomiting, diarrhea, bloody stool, melena. Not currently taking any antibiotics. He was see in the ED in [place] 3 days ago, consulted urologist Dr Stanford there recomme nded clinic follow up but patient says he has been unable to schedule a visit due to insuran ce issues and demands that we do an immediate cystoscopy to "fix this." PCP: Fam Donnelly MD Patient Active Problem List Diagnosis Date Noted Retention of urine 03/07/2010 Overview Note: ICD10 Voiding dysfunction 03/07/2010 RUQ abdominal pain 12/21/2007 Chronic hepatitis C virus infection (HCC) 12/21/2007 Overview Note: ICD10 Past Medical History Diagnosis Date Neurogenic bladder Medications Prior to Admission Medications Prescriptions Last Dose Informant Patient Reported? Taking? Alum-Mag Hydroxide-Simeth 400-400-30 mg/5 mL Oral Suspension Yes No Sig: Take by mouth every four hours as needed. Calcium Carbonate 500 mg Oral Capsule Yes No Sig: Take 500 mg by mouth every six hours as needed. Cholecalciferol, Vitamin D3, (VITAMIN D-3) 2,000 unit Oral Capsule Yes No Sig: Take by mouth once daily. Cranberry Extract (CRANBERRY) 450 mg Oral Tablet Yes No Sig: Take by mouth two times daily. DIVALPROEX SODIUM (DIVALPROEX ORAL) Yes No Sig: Take 1,000 mg by mouth once daily at bedtime. HYDROcodone-acetaminophen 5-500 mg Oral Tablet Yes No Sig: Take 1 Tab by mouth every four hours as needed. Not to exceed 6 tablets per any 24 sarahy r period. (Not to exceed 3250 mg of acetaminophen from all products per 24 hour period.) Haloperidol Lactate 5 mg/mL Intramuscular Syringe Yes No Sig: Inject into the muscle (IM) every six hours as needed. LIOTHYRONINE SODIUM (LIOTHYRONINE ORAL) Yes No Sig: Take 10 mg by mouth once daily. LORAZEPAM (ATIVAN ORAL) Yes No Sig: Take by mouth. LYTES/CARBOXYMETHYLCELLULOSE (SALIVA SUBSTITUTE MM) Yes No Sig: by Mucous Membrane route every two hours as needed. MIRTAZAPINE (REMERON ORAL) Yes No Sig: Take by mouth. OMEPRAZOLE (PRILOSEC ORAL) Yes No Sig: Take by mouth. Psyllium Oral Powder Yes No Sig: Take by mouth as needed. Simethicone 80 mg Oral Tablet Yes No Sig: Take by mouth three times daily. acetaminophen 650 mg Oral Tablet Yes No Sig: Take 650 mg by mouth every eight hours as needed. benztropine 2 mg Oral Tablet Yes No Sig: Take 2 mg by mouth every six hours as needed. busPIRone 5 mg Oral Tablet Yes No Sig: take 1 tablet (5 mg) by oral route 2 times per day cephALEXin 500 mg Oral Capsule Yes No Sig: Take 500 mg by mouth once daily. chlorproMAZINE 100 mg Oral Tablet Yes No Sig: take 1 tablet (100 mg) by oral route once daily lidocaine 20 mg/mL (2 %) Injection Solution Yes No Sig: by Infiltration route as needed. lisinopril 20 mg Oral Tablet Yes No Sig: take 1 tablet (20 mg) by oral route once daily lithium carbonate 300 mg Oral Capsule Yes No Sig: Take 300 mg by mouth once daily at bedtime. olanzapine 10 mg Intramuscular Recon Soln Yes No Sig: Inject 10 mg into the muscle (IM) as needed. olanzapine 5 mg Oral Tablet Yes No Sig: Take 5 mg by mouth once daily at bedtime. omeprazole 20 mg Oral Capsule, Delayed Release(E.C.) Yes No Sig: Take 20 mg by mouth two times daily. oxyCODONE (immediate release) 5 mg Tab 5 mg, acetaminophen 325 mg Tab 325 mg Yes No Sig: Take 2 Dose(s) by mouth every four hours as needed. oxybutynin (DITROPAN) 5 mg Oral Tablet No No Sig: Take 1 Tab by mouth two times daily. paroxetine 20 mg Oral Tablet Yes No Sig: take 1 tablet (20 mg) by oral route once daily prazosin 1 mg Oral Capsule Yes No Sig: Take 1 mg by mouth once daily. promethazine 25 mg Oral Tablet Yes No Sig: Take 25 mg by mouth as needed. traMADol 25 mg Oral Tablet Yes No Sig: Take by mouth every six hours as needed. trimethoprim-sulfamethoxazole 160-800 mg Oral Tablet No No Sig: Take 1 Tab by mouth two times daily. zolpidem 10 mg Oral Tablet Yes No Sig: Take 10 mg by mouth once daily at bedtime as needed. Facility-Administered Medications: None Allergies Allergen Reactions Doxycycline Hives Social History reports that he has quit using tobacco. His tobacco use included cigarettes. He has a 7. 5 pack-year smoking history. He reports that he uses drugs. He reports that he does not cu rrently drink alcohol. Family History The family history was reviewed and was found to be non-contributory. Review of Systems A complete review of systems was performed and negative except as mentioned in the HPI. ED Triage Vitals BP Temp Pulse Pulse - Plethysmograph Resp SpO2 02/22/17203602/22/17203602/22/17203602/22/17 2249 02/22/17203702/22/172036 176/108 36.3 C 107 86 pulses/min 18 99 % Physical Exam Nursing note and vitals reviewed. General: Well-developed, well-nourished; uncomfortable, nontoxic HEENT: Normocephalic, atraumatic Eyes: Conjunctiva normal, anicteric Neck: Supple CV: Regular rate and rhythm; no murmur Chest: Nonlabored; clear to auscultation bilaterally; no wheezes, crackles or rhonchi Abdomen: Soft, nondistended, suprapubic soft tissue scarring and tenderness without rebound or guarding Genitalia: normal male genitalia, indwelling linares present without blood or discharge aroun d catheter Extremities: Warm and well perfused; no deformity or edema Neuro: Awake and alert; moving all extremities; strength and sensation grossly intact Psych: Irritable, labile, screaming and cursing at ED staff for not performing immediate cy stoscopy ED COURSE AND MEDICAL DECISION MAKING: Assessment: Aaliyah Richardson is a 36 y.o. man who presents with suprapubic pain. Here pt is afebrile. In itially hypertensive and tachycardic, which resolved without intervention--likely due to jorge n and anxiety. He has suprapubic tenderness without peritoneal findings. Differential diagnosis includes, but is not limited to UTI, bladder irritation from linares, bladder trauma, bladder foreign body, chronic pain from scarring. No GI symptoms to suggest gastroenteritis, colitis, appendicitis. Labs: -UA with large blood, + nitrites, bacteria and leuk esterase (consistent with UTI, with dani teria and nitrites new compared with OSH ED UA 3 days ago) Imaging: -POC US with linares balloon in bladder but otherwise no foreign body in bladder or pelvic fr ee fluid. Consults: -I discussed the patient with the on-call urology resident, who recommended referral for cl inic evaluation. He recommended pyridium x 2 days and oxybutynin PRN pain. MDM (continued): We discussed study results and clinical impression. I explained his UA suggests a UTI, whic h may be contributing to his symptoms. I explained that we cannot perform cystoscopy in the ED and cannot definitively identify the cause of his symptoms based on our workup in the ED. I stressed the importance of close follow-up with urology for ongoing workup as an outpatie nt. Aaliyah Richardson is stable for discharge, agrees with plan, and was provided with discharge instructions and return precautions. ED Medication Administration from 02/22/20172032 to 02/23/2017 1736 Date/Time Order Dose Route Action 02/23/201750 fentaNYL (SUBLIMAZE) injection 50 mcg 50 mcg intravenous Given 02/23/201750 phenazopyridine (PYRIDIUM) tablet 100 mg 100 mg oral Given Aaliyah Richardson did not require hospitalization and was discharged at the completion of ED care. IMPRESSION: R10.2 Suprapubic abdominal pain T83.511A, N39.0 Urinary tract infection associated with indwelling urethral catheter, init ial encounter ([facility]) PLAN, DISPOSITION AND FOLLOW-UP: Disposition: discharged home with urology follow-up Condition: stable Discharge Medication List as of 02/23/2017 1:58 AM START taking these medications Details ciprofloxacin HCl 500 mg oral tablet Take 1 tablet by mouth every twelve hours for 10 days. , Disp-20 tablet, R-0, Print Prescription !! oxybutynin 5 mg oral tablet Take 1 tablet by mouth three times daily as needed (bladder pain)., Disp-30 tablet, R-0, Print Prescription phenazopyridine 200 mg oral tablet Take 1 tablet by mouth three times daily as needed for u p to 2 days. Administer after meals for 2 days., Disp-6 tablet, R-0, Print Prescription !! - Potential duplicate medications found. Please discuss with provider. Patient seen and examined by me as well, agree with above hx, exam, and medical decision [facility] Teaching Attestation: I saw and evaluated the patient and discussed the diagnosis and management of the patient w ith the resident. I performed and confirmed the sarmiento portions of the service. We have both co ntributed to this note using the [employer] share function. I agree with the documentation findin gs and plan of care. The patient voiced understanding of discharge instructions and was comfortable with the shira n. They will follow up with their primary physician, and return to the ED for worsening of their symptoms, or new symptoms that are concerning to them. Indications for reevaluation a nd possible side effects of medications reviewed with patient. Edith Owen MD Clinical Instructor Department of Emergency Medicine Ngoc Ryan RN - 02/23/2017 12:28 AM PDTShamar niece came to the nurses station, tearful and stating he r uncle needed help. Upon entering the room pt appeared significantly agitated and was stati ng "I can't take this anymore, I've been in pain for 7 fucking days and no relief. No pain m edications nothing! I can't take this anymore! I can just get my things together and go get some heroin at this rate." Pts feelings towards his pain being unaddressed were validated an d MD Miramontes and Richar updated on this. Electronically signed by Ngoc Blanton RN at 12:32 AM Herve Lawton RN - 02/22/2017 11:56 PM PDTUrine sample collected and sen t to lab. Pt states he is having SOB. On monitor pt is sating at 98-99% at this time. Isaac bonner MD. Herve Lawton RN - 02/22/2017 11:36 PM PDTFoley bag tubing changed by two RNs for clean urine sample collectio n. Angelina Escobedo RN - 02/22/2017 8:35 PM PDTChronic linares catheter, states "a piece of a straight catheter is s tuck in my bladder", states has had US and been worked up for it. States has been having blo od in urine. Urine in linares bag yellow at this time. documented in this encounter Miscellaneous Notes ED Teaching Notes - Brayden VALLE, Edith Kelley - 02/23/2017 1:57 AM Diomedes pressley MD, Faculty Note: I saw and evaluated the patient and discussed the diagnosis, management, and interpretation of results with the resident. I performed and confirmed the sarmiento portions of the service. I have reviewed and agree with the documentation in the provider note. Edith Walter MD 6:34 AM documented in t his encounter Plan of Treatment Not on filedocumented [...] + documented in this encounter Results UA 10 DIP, POC (02/23/2017 1:36 AM PDT) + + + + + + | Component | Value | Ref Range | Performed | Pathologist | | | | | At | Signature | + + + + + + | COLOR (UA | Dark yellow | | [facility] - | | | DIP), POC | | | NOREEN | | | | | | ZORAIDA [...] + + + + + | [facility] | [address] | [place], [place] | | | [facility]SA POINT OF CARE | [address] | [address] | | | TESTS | | | [...] +---------+ + + + | MUCOUS | Few (A) | None /hpf | [...] +---------+ + + + | NON-SQUAMOU | Few (A) | None /hpf | [...] [facility] | [address] | [place] [address] | | | SERVICES, CORE | DAHIANA [...] | + + + + + | [facility] | [address] | [place] [address] | | | NANCY MAX | DAHIANA [...] + | DIAL - AIRPORT - | [address] | [place] [address] | | | [facility] | | | | + + + [...] [facility] | [address] | [place] [address] | | | SERVICES, CORE | DAHIANA [...] | + + + + + | [facility] | [address] | [place] [address] | | | SERVICES, CORE | DAHIANA [...] | + + + + + | [facility] | [address] | [place] [address] | | | SERVICES, CORE | DAHIANA [...] | + + + + + | [facility] | [address] | [place] [address] | | | SERVICES, NANCY | DAHIANA [...] | + + + + + | [facility] | [address] | [place] [address] | | | SERVICES, CORE | DAHIANA [...] | + + + + + | [facility] | [address] | [place] [address] | | | SERVICES, | [address] | | | | TRANSFUSION MEDICINE | | | | + + + + + ED INFORMATION EXCHANGE (02/22/2017 8:33 PM PDT) + + | Specimen | + + | | + + + + + | Narrative | Performed At | + + + | [id number] This patient has registered at the | COLLECTIVE | | [facility] Emergency Department For more | MEDICAL | | information visit: | TECHNOLOGIES | | [email or web address] | | | [id number] ED Care Guidelines from [facility] Last | | | Updated: 12/03/16 2:35 PM Care Coordination: ENCOURAGE PATIENT | | | TO USE PCP FOR FOLLOW UP AND NON-EMERGENT PROBLEMS. GIVE PATIENT THIS | | | MARBLE CUTTER OPERATOR NAME AND NUMBER FOR HELP AND QUESTIONS. MARSHALL AMADOR ED | | | TOXICOLOGY SUPERVISOR [facility] [phone] These are guidelines | | | and the provider should exercise clinical judgment when providing | | | care. Care History Behavioral 12/03/16 12:00 AM [facility] | | | Hospital PT IS WORKING WITH [employer] [facility] -- ATTN:ANGELINA | | | [place] Medical/Surgical 11/03/14 12:00 AM [facility] | | | Hospital Smoker Methamphetamine abuse Recent Emergency | | | Department Visit Summary Admit Date Facility City State Type Major | | | Type Diagnoses or Chief Complaint Feb 22, 2017 [facility] | | | [facility] [place] Emergency Emergency 10,800. | | | [facility] 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 [place] Emergency Emergency Chief Complaint: | | | Urinary Problem Feb 03, 2017 [facility] | | | [place] Emergency Emergency Chief Complaint: URO MALE Jan | | | 2016 [facility] [place] Emergency | | | Emergency Bipolar disorder, unspecified Nicotine | | | dependence, cigarettes, uncomplicated Other stimulant | | | dependence, uncomplicated Dec 30, 2016 [facility] | | | [place] Emergency Emergency catheter issues Urinary | | | Catheter Insertion Other urethritis Retention of urine, | | | unspecified Other stimulant abuse, uncomplicated Dec 03, | | | 2016 [facility] [place] [place] Emergency Emergency Bipolar | | | disorder, unspecified Schizoaffective disorder, unspecified | | | Other chcf (current) drug therapy Nicotine dependence, | | | unspecified, uncomplicated Anxiety disorder, unspecified | | | Allergy status to other antibiotic agents status Allergy status | | | to other drugs, medicaments and biological substances status | | | Other fatigue Delusional disorders Essential (primary) | | | hypertension Nov 24, 2016 [facility] [place] [place] Emergency | | | Emergency Encounter for other general examination | | | Allergy status to other drugs, medicaments and biological substances | | | status Bipolar disorder, unspecified Other chcf | | | (current) drug therapy Major depressive disorder, single | | | episode, unspecified Essential (primary) hypertension | | | Recent Inpatient Visit Summary No recorded inpatient visits. | | | E.D. Visit Count (12 mo.) Facility Visits [facility] | | | System 2 [facility] and [facility] 1 [facility] | | | Center 1 [facility] 1 [facility] | | | Center 2 [facility] 15 | | | Total 23 Note: Visits indicate total known visits. Care | | | Providers Provider PRC Type Phone Fax Service Dates Fam Donnelly, | | | MD TORI Primary Care [facility] | | | MENTAL HEALTH, Mental Health Provider ([id number]) | | | [phone] Nov 15, 2016 - Current Summer Ester PAULINA Case or Care | | | Gas Specialist Current The above | | | information is provided for the sole purpose of patient treatment. | | | Use of this information beyond the terms of Data Sharing Memorandum of | | | Understanding and License Agreement is prohibited. In certain cases | | | not all visits may be represented. Consult the aforementioned | | | facilities for additional information. 2017 [facility] | | | [email or web address] - [place], [place] - | | | | | + + + + + | Procedure Note | + + | Service Account, Rtf Results Inbound - 02/22/2017 8:34 PM PDT Formatting of this | | note might be different from the original.NIRANJAN?NOTIFICATION?02/22/2017 20:33?ROMERO, | | AALIYAH? patient has registered at the [facility] | | [place] [facility] For more information visit: | | [email or web address] ED Care | | [facility] Updated: 12/03/16 2:35 PM Care | | Coordination:ENCOURAGE PATIENT TO USE PCP FOR FOLLOW UP AND NON-EMERGENT PROBLEMS.GIVE | | PATIENT THIS MARBLE CUTTER OPERATOR NAME AND NUMBER FOR HELP AND QUESTIONS.MARSHALL AMADORED CASE | | E[facility]ER [phone] are guidelines and the provider should | | exercise clinical judgment when providing care.Care HistoryBehavioral12/03/16 12:00 AM | | [facility] [employer] [facility] -- ATTN:? ANGELINA | | CONKEYMedical/Surgical11/03/14 12:00 AM [facility] | | HospitalSmokerMethamphetamine abuseRecent Emergency Department Visit SummaryAdmit Date | | Facility City State Type Major Type Diagnoses or Chief Complaint Feb 22, 2017 [place] | | [facility] Emergency Emergency 10,800. Cath issue Feb | | [address] [place]. [place] Emergency Emergency dizzy Generalized | | Body Aches Neuromuscular dysfunction of bladder, unspecified Feb 18, 2017 [facility] | | 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 [place] Emergency Emergency Chief Complaint: Urinary Problem Jan | 2016 [facility] [place] Emergency Emergency Chief | | Complaint: URO MALE Jan 25, 2017 [facility] [place] Emergency | | Emergency Bipolar disorder, unspecified Nicotine dependence, cigarettes, | | uncomplicated Other stimulant dependence, uncomplicated Dec 30, 2016 Stephany Michelle | | [place]. [place] Emergency Emergency catheter issues Urinary Catheter | | Insertion Other urethritis Retention of urine, unspecified Other stimulant | | abuse, uncomplicated Dec 03, 2016 [facility] [place] Emergency Emergency | | [...] hypertension Nov 24, 2016 [facility] | | 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 E.D. Visit Count (12 | | mo.)Facility Visits [facility] 2 [facility] [employer] | | [place] [address] [facility] 1 [facility] 1 [facility] | | [facility] 2 [facility] 1 [facility] 15 Total 23 Note: | | Visits indicate total known visits. Care ProvidersProvider PRC Type Phone Fax Service | | Dates Fam Donnelly MD, Primary Care Current [facility] | | MENTAL HEALTH, Mental Health Provider Nov 15, 2016 - | | Current Summer PAULINA Norman Case or Cattle Brander Current | | The above information is provided for the sole purpose of patient treatment. Use of this | | information beyond the terms of Data Sharing Memorandum of Understanding and License | | Agreement is prohibited. In certain cases not all visits may be represented. Consult the | | aforementioned facilities for additional information. ? 2017 Noah | | [email or web address] - [place], [place] - | | Nicotine dependence, cigarettes, uncomplicated | | Other stimulant dependence, uncomplicated | | | |Dec 30, 2016 [facility] [place] [facility] | | catheter issues | | Urinary Catheter Insertion | | Other urethritis | | Retention of urine, unspecified | | Other stimulant abuse, uncomplicated | | | |Dec 03, 2016 [facility] [place] Emergency Emergency | | Bipolar disorder, unspecified | | Schizoaffective disorder, unspecified | | Other chcf (current) drug therapy | | Nicotine dependence, unspecified, uncomplicated | | Anxiety disorder, unspecified | | Allergy status to other antibiotic agents status | | Allergy status to other drugs, medicaments and biological substances status | | Other fatigue | | Delusional disorders | | Essential (primary) hypertension | | | |Nov 24, 2016 [facility] [place] Emergency Emergency | | Encounter for other general examination | | Allergy status to other drugs, medicaments and biological substances status | | Bipolar disorder, unspecified | | Other chcf (current) drug therapy | | Major depressive disorder, single episode, unspecified | | Essential (primary) hypertension | | | | | | | |Recent Inpatient Visit Summary | |No recorded inpatient visits. | | | |E.D. Visit Count (12 mo.) | |Facility Visits | |[facility] 2 | |[facility] 1 | |[facility] 1 | |[facility] 1 | |[facility] 2 | |[facility] ED 1 | |[facility] 15 | |Total 23 | |Note: Visits indicate total known visits. | | | |Care Providers | |Provider PRC Type Phone Fax Service Dates | |Fam Donnelly MD, MD Primary Care Current | |Mydish [facility], Mental Health Provider Nov 15, 2016 - Current | |PAULINA Orellana Case or Cattle Brander Current | | | |The above information is provided for the sole purpose of patient treatment. Use of this in formation beyond the terms of Data Sharing Memorandum of Understanding and License Agreement is prohibited. In | |certain cases not all visits may be represented. Consult the aforementioned facilities for additional information. | |? 2017 [employer] - [place], [place] - [email or web address] | + + + + + + + | Performing | Address | City/State/Zipcode | Phone Number | | Organization | | | | + + + + + | [employer] | [address] | [place], [place] | [phone] | | [employer] | [address] | [address] | | + + + + + [...]
--- OUTSIDE RECORDS SUMMARY | ~2020-03-05 | XMS | Encounter Summary ---
Demographics + + + | Address | GENERAL DELIVERY | | | [place] [address] | + + + | Home Phone [...] Team Providers + +------+ + | Care Ethylbenzene Converter Operator Name | Role | Phone | + +------+ + PCP | Unavailable | + +------+ + Reason for Visit +--------+--------+ + | Reason | Onset | Comments | | | Date | | +--------+--------+ + | Pain | 06/19/ | | | | 2015 | | +--------+--------+ + Encounter Details +--------+ + + + + | Date | Type | Department | Care Team | Description | +--------+ + + + + | 06/19/ | Telephone | Digestive Health | Jeancarlos Marley MD | Pain | | 2014 | | [place] [address] [address] | [address] | | | | | [address] | [place], [place] | | | | | for Health and | [address] | | | | | [facility], [address] | [phone] | | | | | [facility] [place] | | | | | | [address] | | | | | | [phone] | | | +--------+ + + + [...] this encounter Miscellaneous Notes Telephone Encounter - Conrado Sandhu RN - 06/27/2014 10:59 AM PSTPatient's phone # disco nnected sent letter to last address on file to see how he is doing. elephone Encounter - Conrado Sandhu RN - 06/19/2014 11:33 AM PSTCall received from patient and he reports getting US done at [facility]. He is wondering how long he has to live with his hepatitis C. I let him know that marilia bee's live for some time with hepatitis C and it all about the degree of scarring in the li christine. He reports that the US came back normal. I let him know I am still waiting for labs fro cristela Calvin. He never had them drawn as they didn't receive him. He has to walk 5 miles to g et them drawn so I called and re-faxed orders for him to have done. I called him back and le ft advising him Nikunj should have his labs. He is still having liver pain when he pu ts pressure on it. I Requested imaging from [facility]. He had US and CT on the 15 of June from his abdominal pain. elephone Encounter - Deanna Quach - 06/19/2014 11:22 AM PSTPatient calling regarding symptoms. Have you recently had a procedure no, surgery no or hepatitis C treatment? no Pt has experiencing pain on right side of liver that started about [address] ated he has done lab works and was suppose to hear back from nurse has not heard anything ba ck. Has experienced fever it was at low grade around 99 degrees. Patient has vomited this mo rning and feeling nauseated and week. Is this new or a change for you? No Is this symptom causing you pain?Yes 12/25 Patient requests call back to discuss. Is it alright to leave a detailed message? Yes documented in th is encounter Plan of Treatment Not on filedocumented as of this encounter Visit Diagnoses + + | Diagnosis | + + | Chronic hepatitis C without mention of hepatic coma - Primary | + + documented in this encounter"
--- OUTSIDE RECORDS SUMMARY | ~2020-03-05 | XMS | Encounter Summary ---
Demographics + + + | Address | [address]AL DELIVERY | | | [place] [address] | + + + | Home Phone [...] Team Providers + +------+ + | Care Counter Hand Name | Role | Phone | + +------+ + | Jae Robin MD | PCP | | + +------+ + Reason for Visit + +--------+ + | Reason | Onset | Comments | | | Date | | + +--------+ + | Appointment Question | 01/11/ | | | | 2009 | | + +--------+ + Encounter Details +--------+ + + + + | Date | Type | Department | Care Team | Description | +--------+ + + + + | 01/11/ | Telephone | Urology Adult | Wang Canchola MD | Appointment Question | | 2009 | | [address] | | | | | | Mailcode: CH10U | | | | | | [facility] | | | | | | and Healing, | | | | | | Building | | | | | | Floor [place], [place] | | | | | | [address] | | | | | | [phone] | | | +--------+ + + + [...] this encounter Miscellaneous Notes Telephone Encounter - Kali Sanders, Ghanshyam Kelley - 01/14/2010 9:26 AM PDTWe will see Mr. Richardson as scheduled. Mr. Richardson was seen it the local ED with a urology consult. documented in this encounter Plan of Treatment Not on filedocumented as of this encounter Visit Diagnoses Not on filedocumented in this encounter"
--- OUTSIDE RECORDS SUMMARY | ~2020-03-05 | XMS | Encounter Summary ---
Demographics + + + | Address | [place] DELIVERY | | | [place] [address] | + + + | Home Phone [...] Team Providers + +------+ + | Care Customer Engagement Representative Name | Role | Phone | + [...] Encounter | [address] | [address] | | | | | [address] | [place], [place] | | | | | [facility] | [address] | | | | | (MNP/OLD [facility]) | [phone] | | | | | [place], [place] | | | | | | [address] | | | | | | [phone] | | | +--------+ + + + [...] Discharge Instructions Instructions Katie Kuo RN - 02/14/2011[facility] After Reyna Catheter & Leg [...] from 8:00 4:30, call the Urology Clinic [phone]. After hours, weekend and holidays call the Hospital Chief Scientist at [phone]. Ask for them to page your doctor. Your doctor is RETURN APPOINTMENT Pre-Scheduled for March 31, 2011 @ 10:45 AM Call the Urology clinic to confirm this appointment . Urology Clinic [phone] Please call the clinic if you need [...] + + documented as of this encounter H&P Notes Other, Faculty - 02/24/2011 10:48 AM PDTElectronically signed by Faculty Other at 1 10:48 AM PDTdocumented in this encounter Procedure Notes Other, Faculty - 02/24/2011 10:48 AM PDTAssociated Order(s): PROCEDURE NOTEElectronically s igned by Faculty Other at 02/24/2011 10:48 AM PDTOther, Faculty - 02/16/2011 4:14 PM PDTAss ociated Order(s): ANESTHESIA/SEDATION 4 :14 PM PDTOther, Faculty - 02/14/2011 12:04 PM PDTAssociated Order(s): ANESTHESIA/SEDATIONEl ectronically signed by Faculty Other at 02/14/2011 12:04 PM Armand Awad MD - 02/15/20 11 11:57 AM PDTAssociated Order(s): PROCEDURE NOTEINPATIENT OPERATIVE NOTE Procedure Date: 02/14/2011 Author: CHRISTINA QUISPE MD Attending Physician: Armand Ordonez MD Assistants: CHRISTINA QUISPE MD Preoperative Diagnosis: urinary retention Postoperative Diagnosis: same Procedure Performed: open suprapubic cystostomy (30F) Estimated Blood Loss: 25ml Fluids: 2000ml Specimens: none Complications: none Drains: 30F Malecot Catheter Disposition: good to PACU Findings: good placement of suprapubic catheter which flushes easily; bladder grossly jose manuel l Procedure in Detail: The patient was placed in a supine position and underwent endotrachial intubation. The pat ient's abdomen and penis were prepped and draped. A Reyna catheter was placed in the bladder and filled with normal saline using gravity. A 15cm incision was made in the skin from the pubic bone cephalad. The subcutaneous tissue wa s dissected with electrocautery and the fascia was cut using a 15-blade. The linea alba was identified and the rectus muscles were dissected laterally. Additional saline was placed i nto the bladder and the bladder was identified and a needle was used to aspirate and confirm location. The bladder was defatted and 3-0-vicryl was used to create a purse-string suture in the bladder dome around the future location of the Malecot Catheter and the bladder wall was dissected using electrocautery. There was a rodrigues of fluid back and the 30F Malecot Catheter was placed into the bladder and the purse-string was tied. An additional purse-string suture was placed and there was good irrigation of the suprapubic tube with no leakage around the site. A catheter securing 0-ny callum suture was placed through the skin, fascia, bladder, and catheter to keep it in place. T he fascia was then closed using 0-vicryl in a figure of eight interrupted fashion ensuring t hat the location of the suprapubic tube would come out above the fat fold in his abdomen. Th e subcutaneous tissue was approximated using 3-0 vicryl suture in a running fashion. The sk in was closed using 4-0 Monocryl suture in a subcuticular fashion. The urethral catheter wa s removed and a 2-0 nylon suture was used to secure the catheter and steri-strips were appli ed. The 0-nylon was tied with bolsters and 4x4 and tape were applied. The patient was taken to the PACU in stable fashion and Dr. Ordonez was present for all port ions of this case. - Christina Quispe M.D. [id number] ther, Faculty - 02/13 4:00 PM PDTAssociated Order(s): PROCEDURE NOTE documented in this encounter Miscellaneous Notes Scan - Other, Faculty - 02/24/2011 10:48 AM PDTElectronically signed by Faculty Other at 10:48 AM PDTScan - Other, Faculty - 02/20/2011 11:40 AM PDT can - Other, Faculty - 02/20/2011 11:40 AM PDTElec tronically signed by Faculty Other at 02/20/2011 11:57 AM PDTScan - Other, Faculty - 011 10:14 AM PDT documented in this encounter Plan of Treatment [...] + | Transcriptions | + + | Inna Stark - 02/13/2011 4:00 PM PDT | + + PROCEDURE NOTE (06/22/2015 5:21 AM PST)PROCEDURE NOTE (06/22/2015 5:12 AM PST) + + | Transcriptions | + + | Inna Stark - 02/24/2011 10:48 AM PDT | + + ANESTHESIA/SEDATION (02/14/2011 12:00 AM PDT) + + + | Narrative | Performed At | + + + | | | + + + + + | Transcriptions | + + | Inna Stark - 02/16/2011 4:14 PM PDT | + [...] tablet 1 dose, | | | Starting 02/14/11 at 1319, | | | Until Thu02/14/11 [...]
--- OUTSIDE RECORDS SUMMARY | ~2020-03-05 | XMS | Encounter Summary ---
Demographics + + + | Address | [place]IVERY | | | [place] [address] | + + + | Home Phone [...] Team Providers + +------+ + | Care Legal Instruments Examiner Name | Role | Phone | + +------+ + | Etienne Barnes PA-C | PCP | | + +------+ + Encounter Details +--------+ + + + + | Date | Type | Department | Care Team | Description | +--------+ + + + + | 06/07/ | Document-Sc | UNKNOWN DEPARTMENT | Unknown . | | | 2014 | anned | [address] [facility] | | | | | | [address] | | | | | | [place], [place] | | | | | | [address] | | | +--------+ + + + [...] + documented as of this encounter Procedure Notes [place], Faculty - 08/21/2014 3:05 PM PDTAssociated Order(s): LAB REPORTSElectronically sign ed by Faculty Other at 08/21/2014 3:05 PM PDTdocumented in this encounter Plan of Treatment [...]
--- OUTSIDE RECORDS SUMMARY | ~2020-03-05 | XMS | Encounter Summary ---
Demographics + + + | Address | [place] | | | [place] [address] | + + + | Home Phone [...] Team Providers + +------+ + | Care Package Wrapper Name | Role | Phone | + +------+ + | Lakesha [place] | PCP | | + +------+ + Reason for Visit + +--------+ + | Reason | Onset | Comments | | | Date | | + +--------+ + | Abdominal pain | 08/07/ | | | | 2008 | | + +--------+ + Encounter Details +--------+ + + + + | Date | Type | Department | Care Team | Description | +--------+ + + + + | 08/07/ | Telephone | Digestive Health | Jeancarlos Marley MD | Abdominal pain | | 2008 | | [place] [address] | [address] | | | | | [address] [place] | [place], [place] | | | | | for Health and | [address] | | | | | [facility] | [phone] | | | | | [place], [place] | | | | | | [address] | | | | | | [phone] | | | +--------+ + + + [...] this encounter Miscellaneous Notes Telephone Encounter - Bennie Hui - 08/10/2008 2:16 PM PDTPT INFORMED.Electronically sig nivia by Bennie Hui at 08/10/2008 2:16 PM PDTTelephone Encounter - Bennie Hui - 08/11/19 2:12 PM PDTattempted to call pt, not able to leave [facility]; mail box not availableElectroni onur signed by Bennie Hui at 08/10/2008 2:12 PM PDTTelephone Encounter - Jeancarlos Marley MD - 08/09/2008 11:58 AM PDTCruz, Please tell patient that he should see his PCP. He will likely need an abd ultrasound to ev al his pain this can be done thru his PCP).Electronically signed by Jeancarlos Marley MD at 2008 11:58 AM PDTTelephone Encounter - Bennie Hui - 08/07/2008 3:39 PM PDTI called pt sravani madrigal pt states is abd pain is worse than back in 02/22 when he was seen by Dr. Marley. Advise d pt to call PCP since Dr. Marley is out the rest of the week and also, to go to ED if he fee ls he needs to. Pt states they don't like him at his local ED b/c of his past drug issue. States he doesn't take any pain meds at all. Patient Screening Questions: Pain scale: 8/10 Where is the pain located: RUQ Describe the pain: stabbing pain which comes and goes How long have you had the pain? 1 week What makes the pain better? No, laying down does What makes the pain worse? Physical activity Type of surgery: - Date of surgery: - Name of surgeon: - What does the wound look like? - Is there any drainage? - What color is the drainage? - Does the drainage have a smell? - BM: Consistency: normal Is there blood in your stool? - How frequently are you having a BM? - Do you have a fever? No, get hot flashes Nausea/vomiting for how long? Vomiting, thought it was from drinking coffee, started about a week ago, usually in the morning Able to keep fluids down? Usually after the morning Are these symptoms new for you today? It is pretty new, the sharp pains elephone Encounter - Nan Wall - 08/07/2008 3:08 PM PDTJeremy called stating that he has been experiencing a c onstant stomach ache and his liver hurts to the touch. He feels like his liver is swelling. This has been going on for about a week. Pt requesting an appt with Dr Marley on Thursday, A pril 3. Informed pt that Dr Marley is not in clinic that day, and does not have availability until 01/17/09. Please call the pt. 3 :08 PM PDTdocumented in this encounter Plan of Treatment Not on filedocumented as of this encounter Visit Diagnoses Not on filedocumented in this encounter"
--- OUTSIDE RECORDS SUMMARY | ~2020-03-05 | XMS | Encounter Summary ---
Demographics + + + | Address | [place]IVERY | | | [place] [address] | + + + | Home Phone | | + + + | Preferred Language | Unknown | + + + | Marital Status | Single | + + + | Yarsanism Affiliation | NON | + + + [...] Team Providers + +------+ + | Care Energy Rater Name | Role | Phone | + [...] Required | | hepatitis C | [address] | [address] | | | | | without | [address] | [address] | | | | | mention of | [place], | [place], [place] | | | | | hepatic coma | [place] [address] | [address] | | | | | Procedures | Phone: | Phone: | | | | | CONSULT TO | [phone] | [phone] | | | | | HEPATOLOGY | Fax: | Fax: | | | | | | [phone] | [phone] | +--------+ + + + + + Encounter Details +--------+---------+ + + + | Date | Type | Department | Care Team | Description | +--------+---------+ + + + | 06/16/ | Office | Digestive Health | Jeancarlos Marley MD | Chronic Hepatitis C | | 2007 | Visit | Center at [facility] [address] | [address] | without Mention of | | | | [address] | [place], [place] | Hepatic Coma | | | | for Health and | [address] | (Primary Dx) | | | | Healing, [address] | [phone] | | | | | [place], [place] | | | | | | [address] | | | | | | [phone] | | | +--------+---------+ + + + [...] + + documented in this encounter Progress Jeancarlos Baker - 06/16/2007 8:43 AM PSTI saw and examined the patient and discussed the case with Dr. Santos. I agree with the resident's findings and plan as written. Izabel Mathias - 06/16/2007 8:32 AM PSTFor matting of [...] Dr. Marley. documented in this encoun ter Miscellaneous Notes Scan - Jeancarlos Marley - 02/23/2008 7:27 AM PDT Electronically signed by Jeancarlos Marley at 2007 7:27 AM PDTdocumented in this encounter Plan of [...] RODRIGUEZ | | | | | | MJaninaSTATUS FINAL / DrJan | | | | [...] | | | | | determined bythe [employer] | | | | | | DNA [...] | | | | | Improvement Act . | | | | | | The [...] + + + | [facility] | [address] [employer] | [place] [address] | | | GENETICS LAB[facility] | [address] | | | | | AVE. [...] Iron and TIBC, Serum Test performed by [facility] | | | [facility]. | | + + + + + + + + | Performing | Address | City/State/Zipcode | Phone Number | | Organization | | | | + + + + + | [facility] | [address] | [place] [address] | | | LABORATORY | | | [...] change effective 03/08/07 | | | [facility] ([facility]) [facility] | | | [address] [facility], [place] | | | [address] | | + + + + + + + + | Performing | Address | City/State/Zipcode | Phone Number | | Organization | | | | + + + + + | [facility] | [address] [place] [address] | | | LABORATORY | | | [...] + + + | Test performed by [facility]. | | + + + + + + + + | Performing | Address | City/State/Zipcode | Phone Number | | Organization | | | | + + + + + | [facility] | [address] | [place] [address] | | | LABORATORY | | | [...] by | | | | | | [facility] | | | | | | [facility]. | | | | + + + + + + + + | Specimen | + + | | + + + + + + + | Performing | Address | City/State/Zipcode | Phone Number | | Organization | | | | + + + + + | [facility] | [address] | [place] [address] | | | LABORATORY | | | [...] | + + + + + | [facility] DEPARTMENT OF | [address] | [place] [address] | | | PATHOLOGY | [address] | | | + + + + + | [place] DEPARTMENT OF | [address] | [place] [address] | | | PATHOLOGY | [address] [...] [facility] DEPARTMENT OF | [address] [facility] | [place] [address] | | | PATHOLOGY | [address] | | | + + + + + | [facility] DEPARTMENT OF | [address] [facility] | [place] [address] | | | PATHOLOGY | [address] | | | + + + + + documented in this encounter Visit Diagnoses + + | Diagnosis | + + | Chronic hepatitis C without mention of hepatic coma - Primary | + + documented in this encounter
--- OUTSIDE RECORDS SUMMARY | ~2020-03-05 | XMS | Encounter Summary ---
Demographics + + + | Address | [address] [place]IVERY | | | [place] [address] | + + + | Home Phone [...] Team Providers + +------+ + | Care Workforce Management Coordinator Name | Role | Phone | + +------+ + | Jae Robin MD | PCP | | + +------+ + Reason for Visit + +--------+ + | Reason | Onset | Comments | | | Date | | + +--------+ + | Catheter Problem | 03/21/ | | | | 2009 | | + +--------+ + Encounter Details +--------+ + + + + | Date | Type | Department | Care Team | Description | +--------+ + + + + | 03/21/ | Telephone | Urology Adult | Wang Canchola MD | Catheter Problem | | 2009 | | [address] | | | | | | Mailcode: CH10U | | | | | | [facility] | | | | | | and Healing, | | | | | | Building | | | | | | [place], [place] | | | | | | [address] | | | | | | [phone] | | | +--------+ + + + [...] Encounter - Kali Sanders, Ghanshyam Kelley - 03/21/2010 4:14 PM PDTDr. June from [facility] called informing us that Mr. Richardson continues to pull out his linares catheter AMA and [facility]. Dr. June is inquiring about if a SP catheter placement would be feasible. Plan: I will communicate this information to Dr. Canchola. Follow up in urology clinic as scheduled on 03/28/10 at 10:00 am. documented in this enc ounter Plan of Treatment Not on filedocumented as of this encounter Visit Diagnoses Not on filedocumented in this encounter"
--- OUTSIDE RECORDS SUMMARY | ~2020-03-05 | XMS | Encounter Summary ---
Demographics + + + | Address | GENERAL DELIVERY | | | [place] [address] | + + + | Home Phone [...] Team Providers + +------+ + | Care Superintendent Laundry Name | Role | Phone | + [...] Abdominal pain | | 2007 | | [place] [address] [address] | [address] | | | | | [address] | [facility] [place] | | | | | for Health and | [address] | | | | | Healing, Building 2 | [phone] | | | | | [place], [place] | | | | | | [address] | | | | | | [phone] | | | +--------+ + + + [...] this encounter Miscellaneous Notes Telephone Encounter - Denae Helton - 12/28/2007 4:18 PM PDTPt called back and I informe d him of Dr. Marley's response. Pt understands and will f/u with his PCP.Electronically sherif d by Denae Helton at 12/28/2007 4:18 PM PDTTelephone Encounter - Denae Helton - 2007 3:31 PM PDTAttempted to contact pt in regards to "liver pain medication." Per Dr. Nikki martinez, there is no such thing as a liver pain medication. Therefore, he would like the pt to f/u with his PCP. elephone En shaina - Madison Mtz - 12/28/2007 1:36 PM PDTPatient states he called earlier for "harsha er pain medication," but last TE found is from 12-20-07. Added [facility] in ic per patient request. Seen 12-24-07 for labs only. Patient approves confidential and detail ed messages left on answering machine and voicemail. Advised caller that they may not receiv e a call back from nurse or provider until the next business day. Caller understands and is agreeable to this. documented in this encoun ter Plan of Treatment Not on filedocumented as of this encounter Visit Diagnoses Not on filedocumented in this encounter
--- OUTSIDE RECORDS SUMMARY | ~2020-03-05 | XMS | Encounter Summary ---
Demographics + + + | Address | GENERAL DELIVERY | | | [place] [address] | + + + | Home Phone [...] Team Providers + +------+ + | Care Dolly Operator Name | Role | Phone | + +------+ + PCP | Unavailable | + +------+ + Encounter Details +--------+ + + + + | Date | Type | Department | Care Team | Description | +--------+ + + + + | 06/14/ | Document-Sc | Digestive Health | Jeancarlos Marley MD | | | 2015 | anned | Center at [facility] [address] | [address] | | | | | [address] [place] | [place], [place] | | | | | [facility] and | [address] | | | | | [facility], [facility] 2 | [phone] | | | | | [place], [place] | | | | | | [address] | | | | | | [phone] | | | +--------+ + + + [...]
--- OUTSIDE RECORDS SUMMARY | ~2020-03-05 | XMS | Encounter Summary ---
Demographics + + + | Address | GENERAL DELIVERY | | | [place] [address] | + + + | Home Phone [...] Team Providers + +------+ + | Care Shot Examiner Name | Role | Phone | + +------+ + | Jae Robin MD | PCP | | + +------+ + Reason for Visit + +--------+ + | Reason | Onset | Comments | | | Date | | + +--------+ + | Follow-up Plan | 01/27/ | | | | 2010 | | + +--------+ + Encounter Details [...] | | | | Mailcode: CH10U | [place], [place] | | | | | [facility] | [address] | | | | | and [place], | [phone] | | | | | [facility] | | | | | | Floor [facility] [place] | | | | | | [address] | | | | | | [phone] | | | +--------+ + + + [...] this encounter Miscellaneous Notes Telephone Encounter - Armand Ordonez MD - 01/27/2011 4:11 PM PDTReturned call regarding luis cast. Spoke with Kaylynn. Informed of plan for [place] in [place]. Awaiting surgery scheduling. elephone Encounter - Armand Ordonez MD - 01/27/2011 4:11 PM PDTMessage copied by ARMAND SOSA MD on ThuJan 27, 2011 4:11 PM ------ Message from: MAXWELL GARCÍA Created: ThuJan 27, 2011 1:18 PM Regarding: Please call Dr. 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 Please call lan or any RN - at [phone] Thank you, [phone] documented in thi s encounter Plan of Treatment Not on filedocumented as of this encounter Visit Diagnoses Not on filedocumented in this encounter"
--- OUTSIDE RECORDS SUMMARY | ~2020-03-05 | XMS | Encounter Summary ---
Demographics + + + | Address | GENERAL DELIVERY | | | [place] [address] | + + + | Home Phone [...] Team Providers + +------+ + | Care Postdoctoral Scientist Name | Role | Phone | + +------+ + PCP | Unavailable | + +------+ + Reason for Visit + +--------+ + | Reason | Onset | Comments | | | Date | | + +--------+ + | Lab Order | 06/15/ | | | | 2014 | | + +--------+ + Encounter Details +--------+ + + + + | Date | Type | Department | Care Team | Description | +--------+ + + + + | 06/15/ | Telephone | Digestive Health | Jeancarlos Marley MD | Lab Order | | 2014 | | Center at [facility] [address] | [address] | | | | | [address] | [place], [place] | | | | | for Health and | [address] | | | | | [facility], [facility] 2 | [phone] | | | | | [place], [place] | | | | | | [address] | | | | | | [phone] | | | +--------+ + + + [...] Telephone Encounter - Conrado Sandhu RN - 06/15/2014 12:38 PM PSTFaxed lab orders as req uested. elephone Fer Coronel - 06/15/2014 12:24 PM PSTPatient called in stating that there was sup posed to have been orders for lab draws placed for him with [facility], [facility], [facility] was already in his location. Patient asked if orders for blood labs be s ent to them for the blood draw. Provided FAX of [phone] Connected with RN documented in this encounter Plan of Treatment Not on filedocumented as of this encounter Visit Diagnoses Not on filedocumented in this encounter"
--- OUTSIDE RECORDS SUMMARY | ~2020-03-05 | XMS | Encounter Summary ---
Demographics + + + | Address | GENERAL DELIVERY | | | [place] [address] | + + + | Home Phone [...] Team Providers + +------+ + | Care Pari Mutuel Ticket Seller Name | Role | Phone | + +------+ + PCP | Unavailable | + +------+ + Reason for Visit +--------+--------+ + | Reason | Onset | Comments | | | Date | | +--------+--------+ + | Pain | 06/13/ | | | | 2015 | | +--------+--------+ + Encounter Details +--------+ + + + + | Date | Type | Department | Care Team | Description | +--------+ + + + + | 06/13/ | Telephone | Digestive Health | Jeancarlos Marley MD | Pain | | 2014 | | [place] [address] | [address] | | | | | [address] | [place], [place] | | | | | for Health and | [address] | | | | | Healing, Building 2 | [phone] | | | | | [facility] [place] | | | | | | [address] | | | | | | [phone] | | | +--------+ + + + [...] this encounter Miscellaneous Notes Telephone Encounter - Deidre Berry RN - 06/13/2014 11:56 AM PSTCalled patient a nd he is agreeable with plan as outlined by Dr. Marley. He will get his labs and US of abdome n done at [facility] in [facility]. He had no further questions at this time and s tates he will probably go today or tomorrow to get these tests done. Labs entered as stated below per transcript and to be cosigned. From: Jeancarlos Marley MD Sent: 06/13/2014 10:34 AM To: Deidre Isbell RN Let's get CMP, CBC, plts, diff, INR, ABD ultrasound on him now and let me review to jacqueline ruvalcaba timing of appt. elepho ne Encounter - Deidre Berry RN - 06/13/2014 9:06 AM PSTReturned patients phone call to discuss his symptoms. He states he has been having right sided 8/10 pain for about a month accompanied by intermittent fever of 99.8 being the max. He denies having a temperatu re today. He states his abdomen feels distended and taut with a hardened area underneath his right rib cage. His eyes are getting increasingly yellow, his lower extremities are swollen and he feels very fatigue. He has a bowel movement about every other day, denies taking lac tulose, and complains of low grade nausea throughout the day. He states he does eat and drin k but has been loosing 26 lbs within the last month (current weight 320 lbs). He denies drin marquita alcohol. He has been released from the [facility] in April of 2014 after a 5 ye ar long admission. He states he is only taking Xanax to control his anxiety but no other med ications including any previously prescribed psych medication due to lack of resources. He s tates he is copying "ok" for the moment and has some family support. He has gone to his PCP in [place] last week who stated he should follow up with us. He also h as been in the ED about 2 weeks ago and he said they were rude to him so he will not return. However, he was put on a course of antibiotics for bladder infection which he has completed . I have contacted Ms. Barnes at the Internal medicine clinic to verify that she is aware that this patient with history of schizophrenia is currently not taking his Psych medications. Lamar sylvester stated she know and they are actively working on resources for him to get him back on his medications. Ms. Barnes states they have taken a HCV viral load and she will fax this informat ion to us and confirms that she would like Dr. Marley to evaluate this patient.. I will route to Dr. Marley if and when he would like to see this patient.Electronically sign ed by Deidre Isbell RN at 06/13/2014 10:11 AM PSTTelephone Encounter - Deanna Stephens - 06/13/2014 8:50 AM PSTPatient is calling regarding symptoms. Have you recently had a procedure no, surgery no or hepatitis C treatment? no Pt has pain on right side that started about a month ago. Patient states that he has exper ienced a fever at 99.8. Patient just got out of the hospital last month in April. Patient has to lay down a lot and shakes while standing. Is this new or a change for you? No Is this symptom causing you pain?Yes 12/25 Patient requests call back to discuss. Is it alright to leave a detailed message? Yes documented in this encounter Plan of Treatment Not on filedocumented as of this encounter Visit Diagnoses + + | Diagnosis | + + | Chronic hepatitis C without mention of hepatic coma - Primary | + + documented in this encounter
--- OUTSIDE RECORDS SUMMARY | ~2020-03-05 | XMS | Encounter Summary ---
Demographics + + + | Address | GENERAL DELIVERY | | | [place] [address] | + + + | Home Phone [...] Team Providers + +------+ + | Care Nurse Quality Name | Role | Phone | + +------+ + PCP | Unavailable | + +------+ + Encounter Details +--------+ + + + + | Date | Type | Department | Care Team | Description | +--------+ + + + + | 12/27/ | Telephone | [facility] | Jeancarlos Marley MD | | | 2007 | | Center at [facility] [address] | [address] | | | | | [address] [place] | [place], [place] | | | | | [facility] and | [address] | | | | | [facility], [facility] 2 | [phone] | | | | | [place], [place] | | | | | | [address] | | | | | | [phone] | | | +--------+ + + + [...] Notes Telephone Encounter - Monique Mcmillan - 01/07/2008 9:50 AM PDTSee other telephone encounter from today. elephone Encou nter - Evon Ladd - 12/28/2007 3:39 PM PDTShe is returning Denae call. elephone Encounter - Gurjit millerEvon - 12/28/2007 3:38 PM PDTShe is rt phone call from documented in this encounter Plan of Treatment Not on filedocumented as of this encounter Visit Diagnoses Not on filedocumented in this encounter"
--- OUTSIDE RECORDS SUMMARY | ~2020-03-05 | XMS | Encounter Summary ---
Demographics + + + | Address | GENERAL DELIVERY | | | [place] [address] | + + + | Home Phone [...] Team Providers + +------+ + | Care Cushion Mat Maker Name | Role | Phone | [...] | | | URINARY | [place] | [address] | | | | | RETENTION | STATE | Ave | | | | | | HOSPITAL | [place], [place] | | | | | | [address] | [address] | | | | | | [address] | | | | | | | [place] | | | | | | | [address] | | | | | | | Phone: | | | | | | | [phone] | | | | | | | Fax: | | | | | | | [phone] | | +--------+--------+ + + + + Encounter Details +--------+ + + + + | Date | Type | Department | Care Team | Description | +--------+ + + + + | 03/28/ | Procedure | Urology Adult | Wang Canchola MD | Cystoscopy | | 2009 | | [address] | | | | | | Mailcode: CH10U | | | | | | [facility] | | | | | | and Healing, | | | | | | Building | | | | | | Floor [place], [place] | | | | | | [address] | | | | | | [phone] | | | +--------+ + + + [...] in this encounter Patient Instructions Patient Instructions Kali Sanders, Ghanshyam Kelley - 03/28/2010 11:17 AM PSTCIC every 4 hours or more frequently if needed using a 16 inch Bard, coude 16fr catheter. Next appt: 1 year What is CIC? CIC is a way of emptying the bladder with a small tube (catheter) at regular times during . Why CIC? CIC is used to help [...] hands with soap and water or hand auxiliary plant operator. Clean the tip of the penis with [...] or contact PCP or call us at [phone] or after hours at [phone] for signs or symptoms of UTI. Urinary [...] issues with spasms and urgency with the jag rodrigues. Current outpatient prescriptions Medication Sig busPIRone 5 [...] for life. We will have our clinic manager review the proper technique. He should be able [...] Resident Physician - Division of Urology Pager #[phone] Amilcar Marcano, Wang F - 1 05/28/2009 10:48 AM Magalys Richardson is a 29 y.o. male I saw and examined along with Dr. Radha Rodriguez . I reviewed the relevant past medical history, social history, and medications. I agree with the assessment and plan as outlined in the medical record and reviewed by me. I was present for the entire procedure ioleta Hoyos - 03/28/2010 10:07 AM PSTUA (POC) done per verbal order of Dr. Canchola for voiding disfuntions . Read back was performed. Cipro 500 mg one tablet by mouth has been dispensed to the patient after cystoscopyElectron ically signed by Violeta Hoyos at 03/28/2010 11:12 AM PSTdocumented in this encounter Miscellaneous Notes Scan - Other, Faculty - 02/05/2011 7:27 AM PDTElectronically signed by Faculty Other at 7:27 AM PDTScan - Other, Faculty - 03/28/2010 12:00 AM PST documented in this encou nter Plan of Treatment Not on filedocumented as of this encounter Procedures + +--------+ + + + | Procedure Name | Priori | Date/Time | Associated Diagnosis | Comments | | | ty | | | | + +--------+ + + + | DC CYSTOURETHROSCOPY | Routin | 03/28/2010 | Unspecified [...] | + +--------+ + + + | DC CYSTOURETHROSCOPY | Routin | 03/28/2010 | Voiding | Results for this | | | e | | dysfunction | procedure are in the | | | | | | results section. | + +--------+ + + + documented in this encounter Results DC CYSTOURETHROSCOPY (03/28/2010) + + + | Narrative [...] + + + | ZORAIDA FREEMAN | [address] [facility] | [place] [address] | | | OF CARE TESTS | | | | + + + + + documented in this encounter Visit Diagnoses + + | Diagnosis | + + | Retention of urine, unspecified | + + | Voiding dysfunction Unspecified disorder of urethra and urinary tract | + + documented in this encounter"
--- OUTSIDE RECORDS SUMMARY | ~2020-03-05 | XMS | Encounter Summary ---
Demographics + + + | Address | GENERAL DELIVERY | | | [place] [address] | + + + | Home Phone [...] Team Providers + +------+ + | Care Livestock Inspector Name | Role | Phone | [...] | | | | | retention | [place] | [address] | | | | | Urinary | STATE | Ave | | | | | Retention | HOSPITAL | [place], [place] | | | | | Procedures | [address] | [address] | | | | | REQUEST TO | [address] | Phone: | | | | | SURGERY | [place] | [phone] | | | | | PRECINCT COMMANDING OFFICER | [address] | Fax: | | | | | [place] | Phone: | [phone] | | | | | INCISE/DRAIN | [phone] | | | | | | BLADDER | Fax: | | | | | | suprapubic | [phone] | | | | | | cystostomy [...] | | | | | | | [address] | | | | | | | [address] | | | | | | | [place], [place] | | | | | | | [address] | +--------+--------+ + + + + Encounter [...] | | | Mailcode: CH10U | [place], [place] | | | | | [facility] | [address] | | | | | and Healing, | [phone] | | | | | [facility] | | | | | | Floor [place], [place] | | | | | | [address] | | | | | | [phone] | | | +--------+ + + + [...] Armand Ordonez MD - 01/22/2011 12:51 PM [id number], former patient of Dr. Canchola, is an inpat ient at [facility] [employer] for at least 3 more years. [...] in the [place]. documented in this encounter Miscellaneous Notes Scan - Other, Faculty - 02/04/2011 5:11 PM PDTElectronically signed by Faculty Other at 5:11 PM PDTScan - Other, Faculty - 01/22/2011 3:52 PM PDT documented in this encounter Plan of Treatment Not on filedocumented as of this encounter Procedures + +--------+ + + + | Procedure Name | Priori | Date/Time | Associated Diagnosis | Comments | | | ty | | | | + +--------+ + + + | RI CYSTOURETHROSCOPY | Routin | 01/22/2011 | Urinary retention | Results for this | | | e | | | procedure are in the | | | | | | results section. | + +--------+ + + + documented in this encounter Results [place] CYSTOURETHROSCOPY (01/22/2011) + + + | Narrative [...]
--- OUTSIDE RECORDS SUMMARY | ~2020-03-05 | XMS | Encounter Summary ---
Demographics + + + | Address | GENERAL DELIVERY | | | [place] [address] | + + + | Home Phone [...] Providers + +------+ + | Care Engine Installer Name | Role | Phone | [...] | | | | | | | [address] | | | | | | | Ave | | | | | | | [place], [place] | | | | | | | [address] | +--------+--------+ + + + + Encounter [...] | | | | Mailcode: CH10U | [place], [place] | | | | | [facility] | [address] | | | | | and Healing, | [phone] | | | | | | | | | | | Floor [place], [place] | | | | | | [address] | | | | | | [phone] | | | +--------+ + + + [...] month Facility will likely change care to [place] due to distance. documented in this encounter Plan of Treatment Not on filedocumented as of this encounter Visit Diagnoses + + | Diagnosis | + + | Urinary retention - Primary Retention of urine, unspecified | + + documented in this encounter"
--- OUTSIDE RECORDS SUMMARY | ~2020-03-05 | XMS | Clinical Summary ---
Demographics + + + | Address | GENERAL DELIVERY | | | [place] [address] | + + + | Home Phone [...] Author + + + | Author | [facility] | + + + | Organization | [facility] | + + [...] Team Providers + +------+ + | Care Adult Basic Education Instructor Name | Role | Phone | + +------+ + | Fam Donnelly MD | PCP | | + +------+ + Source Comments GUSTAVO is fully live on both [facility] InPatient.[facility] Allergies + + + + + + [...] + + Plan of Treatment + + +-------+ + | Health Maintenance | Due Date | Last | Comments | | | | Done | | + + +-------+ + | Pneumococcal | | | | | vaccination (1 of 1 | 6 | | | | - PPSV23) | | | | + + +-------+ + | Influenza (Flu) | | | | | vaccination (#1) | 0 | | | + + +-------+ + Results Not on filefrom Last 3 [...] + +--------+ +--------+-------+---------+--------+ | [place] | AGENCY | [id number] | 05/18/19 | | | Agency | | | STATE | | 11-Pre | | | | | | OF | | sent | | | | | | [place] | | | | | | + +--------+ +--------+-------+---------+--------+ | PROCESS CONTROL SUPERVISOR MEDICAID | PROCESS CONTROL SUPERVISOR | [id number] | 05/22/19 | | | Medica | [...] | | al/Fam | | 1980 | [id number] | [place] [address] | | | linda | | | 3 (Home) | | + +--------+ +--------+ + + | Peng Richardson | Agency | Self | [birth year] | | GENERAL DELIVERY | | | | | 1980 | [id number] | [place] [address] | | | | | | 3 (Home) | | + +--------+ +--------+ + + Advance Directives + + + + + | Type | Date Recorded | Patient | Explanation | | | | Puttying And Calking Supervisor | | + + + + + | Advance | | | | | Directives and | | | | | Living Will | | | | + + + + + | Power of | | | | | Short Haul Driver | | | | + + + + +
--- OUTSIDE RECORDS SUMMARY | ~2020-03-05 | XMS | Encounter Summary ---
Demographics + + + | Address | GENERAL DELIVERY | | | [place] [address] | + + + | Home Phone [...] Team Providers + +------+ + | Care General Intern Name | Role | Phone | [...] abd u/s | | 2007 | | [place] at [facility] [address] | [address] | order faxed/mailed) | | | | [address] [facility] | [place], [place] | | | | | for Health and | [address] | | | | | [place] [facility] 2 | [phone] | | | | | [facility] [place] | | | | | | [address] | | | | | | [phone] | | | +--------+ + + + [...] Notes Telephone Encounter - Monique Mcmillan - 06/21/2007 1:59 PM PSTAbd u/s order faxed to [facility]. Called and left pt VM letting him know that u/s order was faxed and he shou ld call them to sched. Asked him to call me back if he has any questions. unruly Walker cancel [facility] u/s sched'ed on 07/19/07. Thanks. elephone Encounter - Len Levine - 06/21/2007 1:09 PM PSTPt called stating that an ultrasound was ordered for him, however, he doesn't want to come back to [facility] for the study, he would rather go to his local hospital, [facility] to have it done. Is this okay with you? If so, can an order be mailed to him to take to the hospital? Len Dickens 1:0 9 PM PSTdocumented in this encounter Plan of Treatment + +---------+--------+ [...]
--- OUTSIDE RECORDS SUMMARY | ~2020-03-05 | XMS | Encounter Summary ---
Demographics + + + | Address | GENERAL DELIVERY | | | [place] [address] | + + + | Home Phone [...] Team Providers + +------+ + | Care Battery Filler Name | Role | Phone | + [...] Hepatic Coma | | | | [place], [facility] floor | | | | | | [place], [place] | | | | | | [address] | | | | | | [phone] | | | +--------+------+ + + + [...] [facility] DE[facility] | [address] | [place] [address] | | | PATHOLOGY | [address] | | | + + + + + | [facility] DEPARTMENT OF | [address] | [place] [address] | | | PATHOLOGY | [address] [...] [facility] | [address] [facility] | [place] [address] | | | PATHOLOGY | [address] | | | + + + + + | [facility] DEPARTMENT OF | [facility] [address] [facility] | [place] [address] | | | PATHOLOGY | [address] [...] [facility] DEPARTMENT OF | [address] | [place] [address] | | | PATHOLOGY | [address] | | | + + + + + | [facility] DEPARTMENT OF | [address] | [place] [address] | | | PATHOLOGY | [address] [...] Performed At | + + + | [id number] Estimated GFR > 60 mL/min/1.73 sq m if non- | [facility] | | [place] [id number] Estimated GFR > 60 mL/min/1.73 sq m if | DEPARTMENT OF | | [place] GFR is estimated using the MDRD [...] | [facility] | [address] [facility] | [place] [address] | | | PATHOLOGY | [address] | | | + + + + + | [facility] | [address] [facility] | [place] [address] | | | PATHOLOGY | [address] | | | + + + + + documented in this encounter Visit Diagnoses + + | Diagnosis | + + | Chronic hepatitis C without mention of hepatic coma | + + documented in this encounter"
--- OUTSIDE RECORDS SUMMARY | ~2020-03-05 | XMS | Encounter Summary ---
Demographics + + + | Address | GENERAL DELIVERY | | | [place] [address] | + + + | Home Phone [...] Team Providers + +------+ + | Care Stogy Maker Name | Role | Phone | [...] Abdominal pain | | 2007 | | [place] [address] [address] | [address] | (liver pain) | | | | [address] | [place], [place] | | | | | for Health and | [address] | | | | | [facility], [address] | [phone] | | | | | [place], [place] | | | | | | [address] | | | | | | [phone] | | | +--------+ + + + [...] this encounter Miscellaneous Notes Telephone Encounter - Denise Alves - 01/28/2008 1:36 PM PDTPatient has been schedule d to come 02/28/08 per Ayaka's request.Electronically signed by Denise Alves at 008 1:36 PM PDTTelephone Encounter - Monique Mcmillan - 12/21/2007 2:16 PM PDT Addended by: MONIQUE MCMILLAN on: 12/21/2007 2:16:36 PM Modules accepted: Orders elephone Encounter - Monique Freeman - 12/21/2007 2:16 PM PDTCalled and spoke to pt's to tell her that pt's la b and u/s orders have been faxed. They have changed their minds and would like to get tests done here. She says they already sched'ed the abd u/s (and labs) for Thurs; that is the so onest they can come to [place]. External orders cancelled. Will check w/ Dr. Marley to see when f/u should be sched'ed. elephone Encounter - Monique Santana - 12/21/2007 2:09 PM PDTPt would like to get tests done locally. Previous order s cancelled. Orders faxed to [facility]. elephone Encounter - Monique Mcmillan - 12/21/2007 11:18 AM PDT Adden ded by: MONIQUE MCMILLAN on: 12/21/2007 11:18:40 AM Modules accepted: Orders elephone Encounter - Monique Freeman - 12/21/2007 11:17 AM PDTLabs and u/s ordered. unruly Walker check on auth an d call pt to sched labs, u/s, and f/u appt. Thanks.Electronically signed by Monique perez 12/21/2007 11:18 AM PDTTelephone Encounter - Jeancarlos Marley - 12/20/2007 8:13 PM PDTJo, The patient will need tomorrow (Thursday) a CMP, CBC, pltsm diff, INR, ABD ultrasound to светлана higgins his acute abdominal pain Denise, do I have an open slot to see this patient this Thursday? elephone Encounter - Monique Mcmillan - 12/20/2007 2 :57 PM PDTCalled and spoke to pt. He c/o "liver pain" x 1 mo, pain scale 8/10. Pain is dul l and constant, but he also has sharp stabbing pain, all in the RUQ abd. He has not had thi s before. He is not taking any pain meds currently. He states that he was in skilled nursing for 4 mo s and they served him a lot of fatty foods. He was released 2 wks ago. He states he has ga ined about 20 lbs, wt now is 360#. Informed pt that his wt was 354# when he was last here o n 06/16/07. He states that he had lost some wt before he went into skilled nursing. He is currently o n thorazine 100mg 1 po bid, buspar 5mg 1 po bid, paxil 20mg 1 po q daily, and lisinopril 20m g 1 po q daily. NKDA. Instructed pt to go to the ED if sxs worsen, otherwise, I will call him back w/ Dr. Marley's advice. Pt verbalized understanding and agrees w/ the plan.Electron kaseylly signed by Monique Mcmillan at 12/20/2007 2:57 PM PDTTelephone Encounter - Francisco Javier Cisneros - 12/20/2007 2:03 PM [place] calling to speak with 's nurse. He i s having severe liver pain. He has been in skilled nursing for the past 4 months and has gained weight from the fatty foods they serve. He knows he needs to lose weight but he hasn't been able to since he has been in skilled nursing. Please call him at home today or tomorrow if possible. Pain Scale: 8 Recent Surgery or Procedure: no Pharmacy: Pharmacy Preferences: No preferred pharmacy on file. documented in this enc ounter Plan of [...] | + + + + + | [facility] | [address] | [place] [address] | | | PATHOLOGY | [address] | | | + + + + + | [facility] | [address] | [place] [address] | | | PATHOLOGY | [address] [...] | + + + + + | [facility] | [facility] | [place] [address] | | | PATHOLOGY | [address] | | | + + + + + | [facility] | [facility] | [place] [address] | | | PATHOLOGY | [address] [...] Performed At | + + + | [id number] Estimated GFR > 60 mL/min/1.73 sq m if non- | [facility] | | Singaporean [id number] Estimated GFR > 60 mL/min/1.73 sq m if | DEPARTMENT OF | | Singaporean GFR is estimated using the MDRD equation [...] | + + + + + | [facility] | [address] [facility] | [place] [address] | | | PATHOLOGY | [address] | | | + + + + + | [facility] | [address] [facility] | [place] [address] | | | PATHOLOGY | [address] [...] spleen | | | | | | gbiawfgb79.5 cm in | | | | | [...] + + | [facility] DEPARTMENT OF | | | | | RADIOLOGY | | | | + +---------+ + + documented in this encounter Visit Diagnoses + + | Diagnosis | + + | RUQ abdominal pain - Primary Abdominal pain, right upper quadrant | + + | Chronic hepatitis C without mention of hepatic coma | + + documented in this encounter
--- OUTSIDE RECORDS SUMMARY | ~2020-03-05 | XMS | Encounter Summary ---
Demographics + + + | Address | GENERAL DELIVERY | | | [place] [address] | + + + | Home Phone [...] Providers + +------+ + | Care Manufacturing Engineering Professor Name | Role | Phone | + +------+ + PCP | Unavailable | + +------+ + Reason for Visit + + + | Reason | Comments | + + + | Blood Test Results | Outside labs from [facility] 06/08/14. | + + + Encounter Details +--------+ + + + + | Date | Type | Department | Care Team | Description | +--------+ + + + + | 06/13/ | Documentati | Digestive Health | Jeancarlos Marley MD | Blood Test Results | | 2014 | on | Center at [facility] [address] | [address] | (Outside labs from | | | | [address] | [place], [place] | [facility] | | | | for Health and | [address] | 06/08/14.) | | | | Healing, Building 2 | [phone] | | | | | [place], [place] | | | | | | [address] | | | | | | [phone] | | | +--------+ + + + [...] this encounter Miscellaneous Notes Telephone Encounter - Yovana Sandoval MA - 06/13/2014 1:51 PM PSTEntered out side lab results from [facility] . Collected 06/07/14 . CLIA #[id number] documented in this encounter Plan of Treatment [...] | + +---------+ + + | NON [facility] | | | | + +---------+ + + documented in this encounter Visit Diagnoses Not on filedocumented in this encounter"
--- OUTSIDE RECORDS SUMMARY | ~2020-03-05 | XMS | Encounter Summary ---
Demographics + + + | Address | GENERAL DELIVERY | | | [place] [address] | + + + | Home Phone [...] Team Providers + +------+ + | Care Results Engineer Name | Role | Phone | + +------+ + | Lakesha River | PCP | | + +------+ + Encounter Details +--------+ + + + + | Date | Type | Department | Care Team | Description | +--------+ + + + + | 08/11/ | Telephone | Digestive Health | Jeancarlos Marley MD | | | 2008 | | Center [place] [address] [address] | [address] | | | | | [address] | [place], [place] | | | | | for Health and | [address] | | | | | [facility] 2 | [phone] | | | | | [place], [place] | | | | | | [address] | | | | | | [phone] | | | +--------+ + + + [...] this encounter Miscellaneous Notes Telephone Encounter - MadiMagnus Escobar - 08/11/2008 3:01 PM PDT Addended by: MAGNUS CHAIREZ on: 3:01:35 PM Modules accepted: Orders elephone Encounter - Madi Joseloyn - 08/11/2008 3:01 PM PDTS/w pt's and informed her that Dr. Marley has ordered la bs and abd u/s for pt. They want to come to [facility] for tests and prefer to come or next week. Provided [facility] Imaging schedulers number. Told her to have Peng contact Gigi Marley Thursday08/22/08 instead of 08/15/08 to review results. elephone Encounter - Jeancarlos Marley MD - 08/11/2008 12 :06 PM PDTEryn, Please order ABD ultrasound to w/u abd pain. Also, CMP, CBC, plts, diff, INR. Patient can c all me Thursday AM to review results. 12 :06 PM PDTTelephone Encounter - Magnus Chairez - 08/11/2008 11:46 AM PDTWill send pt request to Dr. Marley for review. NOTE: Pt was previously instructed per Dr. Marley to f/u w/PCP for his issue of abd pain and possibly needing abd u/s. ele phone Encounter - Baylee Ruffin - 08/11/2008 10:01 AM PDTPeng would like to come here to get his US and labs done, according to him his doctor will not order them and wants Dr Marley to send the orders. Peng is upset with his PCP and would like to have them done here at [facility]. Please call when the orders are in so they can make arrangements to come. Advised caller chris bui they may not receive a call back from nurse or provider until next week. Caller dave ands and is agreeable to this. documented in this encount er Plan of Treatment Not on filedocumented as [...] + + + | [facility] DEPARTMENT OF | [address] | [place] [address] | | | PATHOLOGY | [address] | | | + + + + + | [facility] DEPARTMENT OF | [address] | [place] [address] | | | PATHOLOGY | [address] [...] + + + | [facility] DEPARTMENT OF | [address] [facility] | [place] [address] | | | PATHOLOGY | [address] | | | + + + + + | [facility] DEPARTMENT OF | [address] | [place] [address] | | | PATHOLOGY | [address] [...] Performed At | + + + | [id number] Estimated GFR > 60 mL/min/1.73 sq m if non- | [facility] | | Georgian [id number] Estimated GFR > 60 mL/min/1.73 sq m [...] | + + + + + | [facility] OF | [address] | [place] [address] | | | PATHOLOGY | [address] | | | + + + + + | [facility] | [address] | [place] [address] | | | PATHOLOGY | [address] | | | + + + + + documented in this encounter Visit Diagnoses + + | Diagnosis | + + | Chronic hepatitis C without mention of hepatic coma - Primary | + + documented in this encounter"
--- OUTSIDE RECORDS SUMMARY | ~2020-03-05 | XMS | Encounter Summary ---
Demographics + + + | Address | GENERAL DELIVERY | | | [place] [address] | + + + | Home Phone [...] + +------+ + | Care Vice President Planning Name | Role | Phone | + +------+ + PCP | Unavailable | + +------+ + Encounter Details +--------+ + + + + | Date | Type | Department | Care Team | Description | +--------+ + + + + | 06/15/ | Document-Sc | Digestive Health | Jeancarlos Marley MD | | | 2015 | anned | Center at [facility] [address] | [address] | | | | | [address] [place] | [place], [place] | | | | | [facility] and | [address] | | | | | [facility] 2 | [phone] | | | | | [place], [place] | | | | | | [address] | | | | | | [phone] | | | +--------+ + + + [...]
--- OUTSIDE RECORDS SUMMARY | ~2020-03-05 | XMS | Encounter Summary ---
Demographics + + + | Address | GENERAL DELIVERY | | | [place] [address] | + + + | Home Phone [...] Team Providers + +------+ + | Care Financial Advocate Name | Role | Phone | + +------+ + | Jae Robin MD | PCP | | + +------+ + Reason for Visit + +--------+ + | Reason | Onset | Comments | | | Date | | + +--------+ + | Phone communication | 03/13/ | | | | 2009 | | + +--------+ + Encounter Details +--------+ + + + + | Date | Type | Department | Care Team | Description | +--------+ + + + + | 03/13/ | Telephone | Urology Adult | Wang Canchola MD | Phone communication | | 2009 | | [address] | | | | | | Mailcode: CH10U | | | | | | [facility] | | | | | | and Healing, | | | | | | Building | | | | | | [place], [place] | | | | | | [address] | | | | | | [phone] | | | +--------+ + + + [...] this encounter Miscellaneous Notes Telephone Encounter - Ghanshyam Bass Rn - 03/13/2010 3:13 PM CLARII spoke with the floor [facility] and confirmed the appt for 03/28/10 with her and we will formulate a plan after that i damaso visit. She verbalized understanding. elephone Encounter - Myles Vieyra - 03/13/2010 2:21 PM PDTPlease call [facility] regarding questions about this patient's indwelling catheter and treatment plan.Ronak mohr signed by Myles Vieyra at 03/13/2010 2:21 PM PDTdocumented in this encounter Plan of Treatment Not on filedocumented as of this encounter Visit Diagnoses Not on filedocumented in this encounter"
--- OUTSIDE RECORDS SUMMARY | ~2020-03-05 | XMS | Encounter Summary ---
Demographics + + + | Address | GENERAL DELIVERY | | | [place] [address] | + + + | Home Phone [...] Team Providers + +------+ + | Care Optician Manager Name | Role | Phone | [...] | hepatitis C | [address] | [address] | | | | | without | [address] | Ave | | | | | mention of | [place], | [place], [place] | | | | | hepatic coma | [place] [address] | [address] | | | | | Procedures | Phone: | Phone: | | | | | CONSULT TO | [phone] | [phone] | | | | | HEPATOLOGY | Fax: | Fax: | | | | | | [phone] | [phone] | +--------+ + + + + + Encounter Details +--------+---------+ + + + | Date | Type | Department | Care Team | Description | +--------+---------+ + + + | 01/25/ | Office | Digestive Health | Jeancarlos Rich MD | Chronic hepatitis C | | 2011 | Visit | Center at [facility] [address] | [address] | without mention of | | | | [address] | [place], [place] | hepatic coma | | | | for Health and | [address] | (Primary Dx) | | | | Healing, Building 2 | [phone] | | | | | [place], [place] | | | | | | [address] | | | | | | [phone] | | | +--------+---------+ + + + [...] infected in 2002 1.4)Obese 1.5) committed to [facility] in [place] until 2014 1.6 ) no liver biopsy to date 1.7) vaccinated for HAV/HBV in the past PAST MEDICAL HISTORY 2) HTN 3) Schizophrenia and anxiety:now committed to [facility] 4) obesity [...] interim he has been committed [facility]. At this time he has no clinical evidence of cirrhosis. Unfortunat birgit the current HCV treatment regimen still includes interferon, which will exacerbate any u nderlying psychiatric issues. Unless he can be safely watched and protected in the [facility], there will not be a way to use interferon-based therapy. It would be unreasonable to consider a liver biopsy (can be done in [place] thru radiology, ie ultrasound guided) to asses s degree of liver fibrosis, before even contemplating any therapy. Recommend thru Drs. Robin/Mike patients get the followin. CMP, CBC, plts, diff, INR 2. Decide if patient can be treated safely in [facility] with interferon regimen. If possible, would recommend liver biopsy (in [place]) and then will results in hand return to [facility]. 3) If interferon-based therapy is deemed too risky [facility], then should wa it until interferon-free regimens [...]
--- OUTSIDE RECORDS SUMMARY | ~2020-03-05 | XMS | Encounter Summary ---
Demographics + + + | Address | GENERAL DELIVERY | | | [place] [address] | + + + | Home Phone [...] Team Providers + +------+ + | Care Driller Brake Lining Name | Role | Phone | + +------+ + | Lakesha River | PCP | | + +------+ + Encounter Details +--------+------+ + + + | Date | Type | Department | Care Team | Description | +--------+------+ + + + | 02/27/ | Lab | Laboratory at [facility] | | Chronic Hepatitis C | | 2007 | | [address] | | without Mention of | | | | [place] [facility] | | Hepatic Coma | | | | and Healing, | | | | | | Building [address] | | | | | | [place], [place] | | | | | | [address] | | | | | | [phone] | | | +--------+------+ + + + [...] + + documented in this encounter Results [facility] - INR (PROTHROMBINTIME) [...] + + | [facility] | [address] [facility] | [place] [address] | | | PATHOLOGY | [address] | | | + + + + + | [facility] | [address] [facility] | [place] [address] | | | PATHOLOGY | [address] [...] + + | [facility] | [address] [facility] | [place] [address] | | | PATHOLOGY | [address] | | | + + + + + | [facility] | [address] [facility] | [place] [address] | | | PATHOLOGY | [address] [...] + | [facility] | [address] [facility] | [place] [address] | | | PATHOLOGY | [address] | | | + + + + + | [facility] | [address] [facility] | [place] [address] | | | PATHOLOGY | [address] | | | + + + + + documented in this encounter Visit Diagnoses + + | Diagnosis | + + | Chronic hepatitis C without mention of hepatic coma | + + documented in this encounter"
--- OUTSIDE RECORDS SUMMARY | ~2020-03-05 | XMS | Encounter Summary ---
Demographics + + + | Address | GENERAL DELIVERY | | | [place] [address] | + + + | Home Phone [...] Team Providers + +------+ + | Care Remedial Reading Teacher Name | Role | Phone | + +------+ + PCP | Unavailable | + +------+ + Encounter Details +--------+------+ + + + | Date | Type | Department | Care Team | Description | +--------+------+ + + + | 12/23/ | Lab | Laboratory at [facility] | | RUQ Abdominal Pain; | | 2007 | | [address] | | Chronic Hepatitis C | | | | [facility] | | without Mention of | | | | and Healing, | | Hepatic Coma | | | | [address] | | | | | | [place], [place] | | | | | | [address] | | | | | | [phone] | | | +--------+------+ + + + [...] | + + + + + | [facility] DEPARTMENT OF | [address] | [place] [address] | | | PATHOLOGY | [address] | | | + + + + + | [facility] DEPARTMENT OF | [address] | [place] [address] | | | PATHOLOGY | [address] [...] | + + + + + | [facility] DEPARTMENT OF | [address] [facility] | [place] [address] | | | PATHOLOGY | [address] | | | + + + + + | [facility] DEPARTMENT OF | [facility] | [place] [address] | | | PATHOLOGY | [address] [...] | + + + + + | [facility] DEPARTMENT OF | [address] | [place] [address] | | | PATHOLOGY | [address] | | | + + + + + | [facility] DEPARTMENT OF | [address] | [place] [address] | | | PATHOLOGY | [address] [...] Performed At | + + + | [id number] Estimated GFR > 60 mL/min/1.73 sq m if non- | [facility] | | [place] [id number] Estimated GFR > 60 mL/min/1.73 sq m if | DEPARTMENT OF | | [place] GFR is estimated using the MDRD equation [...] | + + + + + | [facility] DEPARTMENT OF | [address] | [place] [address] | | | PATHOLOGY | [address] | | | + + + + + | [facility] DEPARTMENT OF | [address] | [place] [address] | | | PATHOLOGY | [address] | | | + + + + + documented in this encounter Visit Diagnoses + + | Diagnosis | + + | RUQ abdominal pain Abdominal pain, right upper quadrant | + + | Chronic hepatitis C without mention of hepatic coma | + + documented in this encounter"
--- OUTSIDE RECORDS SUMMARY | ~2020-03-05 | XMS | Encounter Summary ---
Demographics + + + | Address | GENERAL DELIVERY | | | [place] [address] | + + + | Home Phone [...] Team Providers + +------+ + | Care Die Mechanic Name | Role | Phone | + +------+ + | PericoRachelleLakesha | PCP | | + +------+ + Encounter Details +--------+ + + + + | Date | Type | Department | Care Team | Description | +--------+ + + + + | 06/16/ | Orders Only | Digestive Health | Jeancarlos Marley MD | Chronic Hepatitis C | | 2007 | | [place] [address] [address] | [address] | without Mention of | | | | [address] | [place], [place] | Hepatic Coma | | | | for Health and | [address] | (Primary Dx) | | | | Healing, Building [address] | [phone] | | | | | [place], [place] | | | | | | [address] | | | | | | [phone] | | | +--------+ + + + [...] Performed At | + + + | [id number] Estimated GFR > 60 mL/min/1.73 sq m if non- | [facility] | | [id number] Estimated GFR > 60 mL/min/1.73 sq m [...] + + | [facility] DEPARTMENT OF | [address] [facility] | [place] [address] | | | PATHOLOGY | [address] | | | + + + + + | [facility] DEPARTMENT OF | [address] [facility] | [place] [address] | | | PATHOLOGY | [address] [...] + | [facility] | [facility] | [place] [address] | | | PATHOLOGY | [address] | | | + + + + + | [facility] DEPARTMENT OF | [address] [facility] | [place] [address] | | | PATHOLOGY | [address] [...] + | [facility] DEPARTMENT OF | [address] [facility] | [place] [address] | | | PATHOLOGY | [address] | | | + + + + + | [facility] DEPARTMENT OF | [address] [facility] | [place] [address] | | | PATHOLOGY | [address] [...] + + | [facility] DEPARTMENT OF | [address] | [place] [address] | | | PATHOLOGY | [address] | | | + + + + + | [facility] DEPARTMENT OF | [facility] | [place] [address] | | | PATHOLOGY | [address] [...] + | [facility] | [address] | [place] [address] | | | PATHOLOGY | [address] | | | + + + + + | [facility] | [address] [place] [address] | [place] [address] | | | PATHOLOGY | [address] [...] by | | | | | | [facility] | | | | | | [facility]. | | | | + + + + + + + + | Specimen | + + | | + + + + + + + | Performing | Address | City/State/Zipcode | Phone Number | | Organization | | | | + + + + + | [facility] | [address] | [place] [address] | | | LABORATORY | | | [...] + + + | Test performed by [facility]. | | + + + + + + + + | Performing | Address | City/State/Zipcode | Phone Number | | Organization | | | | + + + + + | [facility] | [address] | [place] [address] | | | LABORATORY | | | [...] | | | [facility] [address] | | | [address] [place], [place] | | | [address] | | + + + + + + + + | Performing | Address | City/State/Zipcode | Phone Number | | Organization | | | | + + + + + | [facility] | [address] | [place] [address] | | | LABORATORY | | | [...] Iron and TIBC, Serum Test performed by [facility] | | | [facility]. | | + + + + + + + + | Performing | Address | City/State/Zipcode | Phone Number | | Organization | | | | + + + + + | [facility] | [address] | [place] [address] | | | LABORATORY | | | [...] | | | | | | Annette Barens J. | | | | | | [...] | | | | | determined byjamia [facility] | | | | | [...] | | | | | Improvement Act [id number]. | | | | | | [facility] | | | | | | Laboratory is a fully | | | | | | licensed and/ | | | | | | oraccredited clinical | | | | | | laboratory under CLIA, | | | | | | [place], and the State of | | | | | | [place]. | | | | + + + + + + + + | Specimen | + + | | + + + + + + + | Performing | Address | City/State/Zipcode | Phone Number | | Organization | | | | + + + + + | [facility] | [facility] | [place] [address] | | | GENETICS LABS | [address] | | | | | AVE. | | | + + + + + documented in this encounter Visit Diagnoses + + | Diagnosis | + + | Chronic hepatitis C without mention of hepatic coma - Primary | + + documented in this encounter
--- OUTSIDE RECORDS SUMMARY | ~2020-03-05 | XMS | Encounter Summary ---
Demographics + + + | Address | [address] DEL[address]ERY | | | [place] [address] | + + + | Home Phone [...] Providers + +------+ + | Care Senior Manager Creative Services Name | Role | Phone | + +------+ + | [place] | PCP | | + +------+ + Encounter Details +--------+ + + + + | Date | Type | Department | Care Team | Description | +--------+ + + + + | 02/27/ | Telephone | [facility] | Jeancarlos Marley MD | | | 2007 | | Center [place] [id number] | [address] | | | | | [address] | [place], [place] | | | | | for Health and | [address] | | | | | [facility] | [phone] | | | | | [place], [place] | | | | | | [address] | | | | | | [phone] | | | +--------+ + + + [...] Notes Telephone Encounter - Monique Mcmillan - 02/29/2008 2:32 PM PDTPt notified, spoke to him dir ectly. elephone Encounter - Monique Mcmillan - 02/28/2008 12:49 PM PDTFrom: Jeancarlos Marley MD. Sent: Feb 28, 2008 10:56 AM To: Monique Mcmillan Message: Monique, Please tell patient that his labs from today are stable. documented in this encounter Plan of Treatment Not on filedocumented as of this encounter Visit Diagnoses Not on filedocumented in this encounter"
--- OUTSIDE RECORDS SUMMARY | ~2020-03-05 | XMS | Encounter Summary ---
Demographics + + + | Address | [address] | | | [place] [address] | + + + | Home Phone [...] Team Providers + +------+ + | Care Gum Maker Name | Role | Phone | [...] Required | | hepatitis C | [address] | [address] | | | | | without | [address] | Ave | | | | | mention of | [place], | [place], [place] | | | | | hepatic coma | [place] [address] | [address] | | | | | Procedures | Phone: | Phone: | | | | | CONSULT TO | [phone] | [phone] | | | | | HEPATOLOGY | Fax: | Fax: | | | | | | [phone] | [phone] | +--------+ + + + + + Encounter Details +--------+---------+ + + + | Date | Type | Department | Care Team | Description | +--------+---------+ + + + | 02/27/ | Office | Digestive Health | Jeancarlos Rich MD | Chronic Hepatitis C | | 2007 | Visit | Center at [facility] [address] | [address] | without Mention of | | | | [address] | [place], [place] | Hepatic Coma | | | | for Health and | [address] | (Primary Dx) | | | | Healing, Building [address] | [phone] | | | | | [place], [place] | | | | | | [address] | | | | | | [phone] | | | +--------+---------+ + + + [...] JEANCARLOS RICH MD documented in this encounter Miscellaneous Notes Scan - [place], Faculty - 03/14/2008 11:21 PM PDT documented in this encounter Plan [...] | + + + + + | [facility] DEPARTMENT OF | [address] | [place] [address] | | | PATHOLOGY | [address] | | | + + + + + | [facility] DEPARTMENT OF | [address] | [place] [address] | | | PATHOLOGY | [address] [...] + + | [facility] DEPARTMENT OF | [address] | [place] [address] | | | PATHOLOGY | [address] | | | + + + + + | [facility] DEPARTMENT OF | [address] | [place] [address] | | | PATHOLOGY | [address] [...] | + + + + + | [facility] | [address] | [place] [address] | | | PATHOLOGY | [address] | | | + + + + + | [facility] | [address] [place] [address] | [place] [address] | | | PATHOLOGY | [address] | | | + + + + + documented in this encounter Visit Diagnoses + + | Diagnosis | + + | Chronic hepatitis C without mention of hepatic coma - Primary | + + documented in this encounter"
[2020-03-05] MEDS ORDERED: CLEOCIN HCL300 MG PO (21:33)
== END 2020-03-05 21:40 | disposition home or self-care (01) ==
LOC: ED 20:57
DX: S61.207A Unspecified open wound of left little finger without damage to nail, initial encounter (principal); L03.114 Cellulitis of left upper limb; X58.XXXA Exposure to other specified factors, initial encounter; I10 Essential (primary) hypertension; F17.200 Nicotine dependence, unspecified, uncomplicated; Z88.1 Allergy status to other antibiotic agents; Z88.2 Allergy status to sulfonamides
CPT/HCPCS: 73130; 99283-25

== ENCOUNTER 2020-03-14 17:10 | Emergency (ER) | payer OTHER ==
[~2020-03-14] VITALS: Ht 177.8 cm; Wt 108.9 kg
[~2020-03-14 17:10] MED LIST changes: +CLEOCIN HCL300 MG PO
--- NOTE | 2020-03-14 20:46 | EKG ---
[facility] [address] [facility] [place] [address] Signed Normal sinus rhythm Incomplete right bundle branch block Prolonged QT Abnormal ECG When compared with ECG of 25-NOV-2019 17:06, QT has lengthened Confirmed by SIMON OLSON DO ([id number]) on 03/14/2020 8:46:33 PM Electronically Signed By: SIMON OLSON DO 03/14/20 2046 PATIENT NAME: KAUSHIKAALIYAH SELLERSTON Electrocardiogram DATE OF : 78 PHYSICIAN: SIMON OLSON DO REPORT #: [id number] REPORT IS CONFIDENTIAL AND NOT TO BE RELEASED WITHOUT AUTHORIZATION
== END 2020-03-14 18:42 | disposition left against medical advice (07) ==
LOC: ED 17:10
DX: R07.89 Other chest pain (principal); L03.114 Cellulitis of left upper limb
CPT/HCPCS: 71045; 80053; 84484; 85025; 93005; 93010; 99284-25

== ENCOUNTER 2020-04-23 15:08 | Observation (INO) | payer OTHER ==
[~2020-04-23] VITALS: Ht 177.8 cm; Wt 117.8 kg
--- NOTE | 2020-04-23 21:35 | NUR ---
pt ARRIVES TO THE FLOOR VIA STRETCHER. PT IS RESTLESS AND APPEARS AGITATED; EYES CLOSED, TURNING SIDE TO SIDE, C/O CRAMPS IN LEGS. pt COOPERATIVE TO CHANGE INTO HOSPITAL GOWN AND OUT OF STREET CLOTHES. pt HAS LARGE BACKPACK AND PERSONAL BELONGINGS BAG WITH HIM. pt REFUSES FOR STAFF TO INSPECT CONTENTS OF BACKPACK. CHARGE NURSE AND FLOAT NURSE IN ROOM.
--- NOTE | 2020-04-23 22:00 | NUR ---
pt PROVIDED WITH WATER, PUDDING AND LAKISHA CRACKERS UPON REQUEST. IV FLUIDS HUNG AND ADMINISTERED VIA IV PUMP. pt STILL LAYING WITH EYES CLOSED, SPEECH IS SOMEWHAT SLURRED/MUMBLED. CALL LIGHT WITHIN REACH.
--- NOTE | 2020-04-23 22:30 | NUR ---
ASSESSMENT COMPLETE. pt REQUESTS PRN PAIN MEDS AND ANXIETY MEDS. PRN TYLENOL AND VISTARIL ADMINISTERED. pt HAD RECEIVED A SANDWICH BOX WELL. CALL LIGHT WITHIN REACH. BEDSIDE TABLE WITHIN REACH
--- NOTE | 2020-04-24 00:04 | NUR ---
CHECKED ON PT. PT APPEARS TO BE SLEEPING. IVF INFUSING ORDERED.
--- NOTE | 2020-04-24 02:34 | NUR ---
CHECKED ON PT AND VS TAKEN. PT IS DIAPHORETIC, TWITCHING AND DROWSY. PT IS CALM AND RESPONSIVE. PT DENIES NEEDS AT THIS TIME. CALL LIGHT WITHIN REACH
--- NOTE | 2020-04-24 04:15 | NUR ---
in room to empty urinal. large urine output. pt sleeping with even unlabored breathing. no apparent signs of distress. call light within reach
--- NOTE | 2020-04-24 05:47 | NUR ---
IN ROOM FOR MORNING VITALS AND ASSESSMENT. PT REQUESTS PRN TYLENOL AND VISTARIL WHICH IS PROVIDED. VSS. NO FURTHER NEEDS AT THIS TIME. CALL LIGHT WITHIN REACH
--- NOTE | 2020-04-24 06:07 | NUR ---
PT WAS COMPLIANT THIS ENTIRE SHIFT. PT REMAINED IN A "WITHDRAW" STATE CONSISTING OF TREMORS, DIAPHORESIS AND HYPERSENSITIVITY. PT DID REMAIN CALM AND COOPERATIVE THROUGHOUT REQUESTING PRN VISTARIL AND TYLENOL TWICE THIS SHIFT. URINE OUTPUT IS VERY GOOD WITH PT ABLE TO USE URINAL FREELY. PT HAD A SANDWICH BOX, PUDDING, LAKISHA CRACKERS AND 2 SODAS THIS SHIFT. PT DID NOT USE CALL LIGHT FOR ASSISTANCE THIS ENTIRE SHIFT. IVF WNL, REDDENED AREA ON L ARM REMAINS UNCHANGED, REDNESS ON RIGHT FOREARM UNCHANGED. VSS.
--- NOTE | 2020-04-24 07:10 | NUR ---
HANDOFF REPORT RECEIVED FROM PHYSICIAN OFFICE REP RN. PT SLEEPING, LEFT UNDISTURBED.
--- NOTE | 2020-04-24 09:32 | NUR ---
IN ROOM TO HANG VANCO. PT THRASHING AROUND IN BED BUT ABLE TO ANSWER QUESTIONS AND ORDER BREAKFAST. DENIES FURTHER NEEDS.
--- NOTE | 2020-04-24 10:04 | NUR ---
PATIENT RESTING IN BED. VITAL SIGNS AND I&O DONE. PATIENT DID NOT VOID DURING THIS PERIOD. RN NOTIFIED. SETS UP TABLE FOR BREAKFAST. CALL LIGHT WITHIN REACH. NO OTHER NEEDS AT THIS TIME
--- NOTE | 2020-04-24 10:06 | NUR ---
MED REC COMPLETE
--- NOTE | 2020-04-24 11:30 | NUR ---
Visited with Peng. He does not have a pcp and agrees to see a pcp. Rosy notified and will schedule appt. Pt remains homeless, states he has called a friend who will drive [place] to the homeless [place]. Denies other needs, wanting to leave as soon as possible.
--- NOTE | 2020-04-24 11:52 | NUR ---
CHECKED ON PT. LEGS MOVING RAPIDLY IN BED BUT PT HAS EYES CLOSED.
[2020-04-24] MEDS ORDERED: CLINDAMYCIN HC300 MG PO (12:40)
--- NOTE | 2020-04-24 13:12 | NUR ---
PATIENT RESTING IN BED. VITAL SIGNS AND I&O DONE. CALL LIGHT WITHIN REACH. NO OTHER NEEDS AT THIS TIME
--- NOTE | 2020-04-24 13:34 | NUR ---
PT IS SLEEPING, MARSHALL REY REQUESTED I NOT BOTHER PT AT THIS TIME. WILL CHECK BACK
--- NOTE | 2020-04-24 14:05 | NUR ---
PT RESTING IN BED, DROWSY BUT AROUSABLE TO VOICE. PT COOPERATIVE WITH CARE BUT UNITERESTED IN CARE. PT ON ROOM AIR, LUNG SOUNDS CLEAR. PT REPORT OF TENDERNESS TO LEFT ARM, RED AND WARM TO TOUCH. IV FLUIDS INFUSING LR AT 100ML/HR. PT DENIES NAUSEA, BOWEL TONES ACTIVE. CMS INTACT, WITHOUT EDEMA. PT VOIDING LARGE AMOUNTS. PT DENIES OTHER NEEDS AT THIS TIME.
--- NOTE | 2020-04-24 16:51 | EKG ---
[facility] [address] [place] [address] Signed Normal sinus rhythm Incomplete right bundle branch block When compared with ECG of 14-MAR-2020 17:15, No significant change was found Confirmed by ARNOL PIÑA MD ([id number]) on 04/24/2020 4:51:39 PM Electronically Signed By: ARNOL PIÑA MD 04/24/20 165 PATIENT NAME: AALIYAH JASSO Electrocardiogram DATE OF : 78 PHYSICIAN: ARNOL PIÑA MD REPORT #: [id number] REPORT IS CONFIDENTIAL AND NOT TO BE RELEASED WITHOUT AUTHORIZATION
== END 2020-04-24 13:40 | disposition home or self-care (01) ==
LOC: ED 15:08 → MS 15:10
PROVIDERS: ADMIT Internal Medicine; ATTEND Internal Medicine
DX: L03.114 Cellulitis of left upper limb (principal); G92 Toxic encephalopathy; F15.129 Other stimulant abuse with intoxication, unspecified; F11.129 Opioid abuse with intoxication, unspecified; I10 Essential (primary) hypertension; F31.9 Bipolar disorder, unspecified; F20.9 Schizophrenia, unspecified; F41.9 Anxiety disorder, unspecified; F17.200 Nicotine dependence, unspecified, uncomplicated; Z88.2 Allergy status to sulfonamides; Z88.1 Allergy status to other antibiotic agents; Z20.828 Contact with and (suspected) exposure to other viral communicable diseases
CPT/HCPCS: 36415; 71045; 71260; 80053; 80176; 82550; 83605; 83690; 83880; 84484; 85025; 85651; 93005; 93010; 96376; 99285-25; 99406; C9803; G0378; G0480; J1650; J2060; J3370; J7030; J7060; J7121; Q0177; Q9967; U0003

== ENCOUNTER 2020-04-25 11:02 | Emergency (ER) | payer OTHER ==
[~2020-04-25] VITALS: Ht 177.8 cm; Wt 117.5 kg
[~2020-04-25 11:02] MED LIST changes: +CLINDAMYCIN HC300 MG PO
== END 2020-04-25 15:36 | disposition home or self-care (01) ==
LOC: ED 11:02
DX: L03.114 Cellulitis of left upper limb (principal); I10 Essential (primary) hypertension; F17.200 Nicotine dependence, unspecified, uncomplicated; Z88.1 Allergy status to other antibiotic agents; Z88.2 Allergy status to sulfonamides
CPT/HCPCS: 80053; 83605; 85025; 96374; 99283-25; J3490; J7030

== ENCOUNTER 2020-05-01 17:38 | Emergency (ER) | payer OTHER ==
[~2020-05-01] VITALS: Ht 177.8 cm; Wt 117.5 kg
[2020-05-01] MEDS ORDERED: VENTOLIN HFA18 GM INH (20:13)
[2020-05-01] MEDS ORDERED: PREDNISONE20 MG PO (20:13)
== END 2020-05-01 20:51 | disposition home or self-care (01) ==
LOC: ED 17:38
DX: J20.9 Acute bronchitis, unspecified (principal); I10 Essential (primary) hypertension; F17.200 Nicotine dependence, unspecified, uncomplicated; Z88.1 Allergy status to other antibiotic agents; Z88.2 Allergy status to sulfonamides
CPT/HCPCS: 71045; 80053; 85025; 94640; 96374; 99285-25; J2930; J7030

== ENCOUNTER 2020-06-15 23:20 | Emergency (ER) | payer OTHER ==
[~2020-06-15] VITALS: Ht 177.8 cm; Wt 117.5 kg
[~2020-06-15 23:20] MED LIST changes: +VENTOLIN HFA18 GM INH
[2020-06-15] MEDS ORDERED: CLINDAMYCIN HC300 MG PO (23:47)
== END 2020-06-15 23:58 | disposition home or self-care (01) ==
LOC: ED 23:20
DX: L50.9 Urticaria, unspecified (principal); R21 Rash and other nonspecific skin eruption; I10 Essential (primary) hypertension; F17.200 Nicotine dependence, unspecified, uncomplicated; Z88.1 Allergy status to other antibiotic agents; Z88.2 Allergy status to sulfonamides
CPT/HCPCS: 99282; Q0163

== ENCOUNTER 2020-07-16 13:47 | Observation (INO) | payer OTHER ==
[~2020-07-16] VITALS: Ht 177.8 cm; Wt 129.5 kg
[~2020-07-16 13:47] MED LIST changes: +CEPHALEXIN500 M1 PO
--- NOTE | 2020-07-16 17:00 | NUR ---
PT ARRIVED TO THE FLOOR VIA STRETCHER. PT ABLE TO ABULATED FROM STRETCHER. TO BED. THIS RN RE-OUTLINED PTS CELLULIS ON LLL
--- NOTE | 2020-07-16 18:51 | NUR ---
NO IV ASSCESS AVAILABLE AT THIS TIME. AWARE. DELIVERY OF SHOPPING NEWS TO [employer]
--- NOTE | 2020-07-16 19:34 | NUR ---
BEDSIDE REPORT RECEIVED FROM MARSHALL MONCADA. pt RESTING IN BED. WARM BLANKET PROVIDED REQUESTED. MARSHALL WHITE IN ROOM FOR MIDLINE PLACEMENT, LAB DRAW. URINAL EMPTIED, pt C/O BURNING WHEN HE VOIDS. NOTIFIED, TO PLACE ORDERS.
--- NOTE | 2020-07-16 20:37 | NUR ---
IV PLACEMENT WAS CALLED AND ASKED TO PLACE AN ULTRASOUND IV THE PT IS AN IV DRUG USER AND AFTER MULTIPLE ATTEMPTS BY MULTIPLE STAFF MEMBERS REMAINS WITHOUT AN IV. THE PT'S LEFT ARM WAS EXAMINED. A VEIN WAS FOUND IN THE LEFT FOREARM PROXIMAL TO THE AC. 2 ATTEMPTS WERE MADE AT THIS VEIN. THE IV CATHETER WAS PUSHING THE VEIN AROUND AND ULTIMATELY THESE SITES WERE ABANDONED THE NEEDLE WOULD NOT MASTERSON THE VEIN. PRESSURE APPLIED TO THESE SITES. THE PT'S RIGHT ARM WAS THEN EXAMINED. A VEIN ALONG THE RADIAL SIDE OF THE FOREARM WAS FOUND ABOUT 1 CM DEEP AND WAS LARGE ENOUGH FOR A 16G IV OR BIGGER. THE FIRST ATTEMPT AT THIS VEIN FLASH WAS RECEIVED. UNABLE TO THREAD THE CATHETER. SITE ABANDONED AND PRESSURE HELD. THE 2ND ATTEMPT AT THIS VEIN HIGHER UP ON THE RIGHT ARM WAS ABLE TO BE ACCESSED. RED NONPULSTILE BLOOD RETURNED. LABS WERE DRAWN AND DRESSING APPLIED. IV FLUSHED EASILY AND PT REPORTS NO PAIN. PT'S NURSE AND MED SURG CHARGE NURSE UPDATED. LABS SENT.
--- NOTE | 2020-07-16 22:43 | NUR ---
PT C/O 5-6/10 PAIN IN LEFT LEG, COLES, ABDOMEN. C/O NAUSEA. PRN PAIN AND NAUSEA MEDICATIONS ADMINISTERED. URINAL IN REACH, pt VERBALIZES UNDERSTANDING OF CLEAN CATCH PROCEDURE, WIPES IN REACH. ASSESSMENT COMPLETE 1+ EDEMA LLE, REDDENED AREA OUTLINED. WARM TO TOUCH. TINGLING LLE. pt STATES "STARTING TO FEEL ANXIOUS BEING IN HOSPITAL". MD PHONED. TELEPHONE ORDER RECEIVED AND REPEATED BACK TO VERIFY.
--- NOTE | 2020-07-17 00:01 | NUR ---
IN pt ROOM FOR IV ANTIBIOTIC ADMINISTRATION. pt REFUSES PRN ANXIETY MEDICATION AT THIS TIME "I THINK I'M OKAY RIGHT NOW". CLEAN CATCH URINE SAMPLE OBTAINED AND SENT TO LAB. IV ANTIBIOTIC INFUSING WNL ORDERED. CALL LIGHT IN REACH.
--- NOTE | 2020-07-17 02:20 | NUR ---
IN ROOM FOR VS. pt SLEEPING, AWAKENS TO VOICE. DENIES PAIN. VSS. ASSESSMENT COMPLETE. CALL LIGHT WITHIN REACH. IV SITE SL WNL, GOOD BLOOD RETURN. NO ADDITIONAL REQUESTS.
--- NOTE | 2020-07-17 04:30 | NUR ---
CHECKED ON pt. APPEARS TO BE SLEEPING, EYES CLOSED, BREATHING UNLABORED. LIGHTS OFF IN ROOM.
--- NOTE | 2020-07-17 06:21 | NUR ---
pt RESTED WELL THROUGHOUT SHIFT. PRN TYLENOL X 1 FOR PAIN CONTROL. IV ANTIBIOTICS. REDNESS LLE OUTLINED AND WITHIN MARGINS. VSS. VOIDING QS IN URINAL AT BEDSIDE.
--- NOTE | 2020-07-17 07:04 | NUR ---
pt RESTING IN BED WITH EYES CLOSED, AWAKENS TO VOICE. RATES PAIN 9/10 IN LLE, COLES. PRN PAIN MEDICATION ADMINISTERED. VSS. SPRITE PROVIDED. CALL LIGHT IN REACH. URINAL EMPTIED. NO ADDITIONAL REQUESTS. BREAKFAST MENU PROVIDED.
--- NOTE | 2020-07-17 10:55 | NUR ---
Patient requesting to leave this hospital at this time. Dr. Schultz aware of patient's request and does not feel patient is medically cleared to leave yet. Patient reporting he would like to leave against medical advise at this time as he reports he "needs to smoke". Per hospital policy patient cannot leave the floor to smoke and currently has an IV in place as well. Patient educated regarding cellulitis and need to stay for ongoing abx treatment. Pt verbalizd his understanding of his leg infection and potential for worsening of infection and or . IV removed at this time. AMA paperwork signed with patient.
--- NOTE | 2020-07-17 12:39 | NUR ---
PT WAS LEAVING [facility], GIRLFRIEND AT HIS SIDE I WAVED AND VOICED ENCOURAGEMENT. PT ACKNOWLEDGED GOD BLESS
== END 2020-07-17 10:55 | disposition home or self-care (01) ==
LOC: ED 13:47 → MS 13:48 → ED 13:48 → MS 07-17 10:55
PROVIDERS: ADMIT Student in an Organized Health Care Education/Training Program; ATTEND Student in an Organized Health Care Education/Training Program
DX: L03.116 Cellulitis of left lower limb (principal); F20.9 Schizophrenia, unspecified; I10 Essential (primary) hypertension; F17.210 Nicotine dependence, cigarettes, uncomplicated; Z88.1 Allergy status to other antibiotic agents; Z88.2 Allergy status to sulfonamides; Z53.21 Procedure and treatment not carried out due to patient leaving prior to being seen by health care provider
CPT/HCPCS: 36415; 80048; 81001; 85025; 87491; 87591; 99284; 99406; J1650; J2405; J3370; J7060

== ENCOUNTER 2020-07-18 20:40 | Emergency (ER) | payer OTHER ==
[~2020-07-18] VITALS: Ht 177.8 cm; Wt 129.3 kg
== END 2020-07-19 02:25 | disposition home or self-care (01) ==
LOC: ED 20:40
DX: L03.116 Cellulitis of left lower limb (principal); F15.10 Other stimulant abuse, uncomplicated; I10 Essential (primary) hypertension; F17.200 Nicotine dependence, unspecified, uncomplicated; Z88.1 Allergy status to other antibiotic agents; Z88.2 Allergy status to sulfonamides
CPT/HCPCS: 80053; 85025; 96365; 96366; 99283-25; J3370; J7060

== ENCOUNTER 2020-07-19 13:27 | Emergency (ER) | payer OTHER ==
[~2020-07-19] VITALS: Ht 177.8 cm; Wt 129.3 kg
== END 2020-07-19 16:43 | disposition home or self-care (01) ==
LOC: ED 13:27
DX: L03.116 Cellulitis of left lower limb (principal); I10 Essential (primary) hypertension; F17.200 Nicotine dependence, unspecified, uncomplicated; Z88.1 Allergy status to other antibiotic agents; Z88.2 Allergy status to sulfonamides
CPT/HCPCS: 80053; 85025; 85651; 86140; 96374; 99283-25; C9803; J0878

== ENCOUNTER 2020-11-03 03:44 | Emergency (ER) | payer OTHER ==
[~2020-11-03] VITALS: Ht 175.3 cm; Wt 145.2 kg
[2020-11-03] MEDS ORDERED: LITHIUM CARBON300 MG PO (04:00)
--- NOTE | 2020-11-05 18:04 | EKG ---
[facility] [address] [facility] [place] [address] Signed Normal sinus rhythm Incomplete right bundle branch block Nonspecific T wave abnormality Prolonged QT Abnormal ECG When compared with ECG of 12-JUL-2020 19:05, No significant change was found Confirmed by ARNOL PIÑA MD ([id number]) on 11/05/2020 6:04:22 PM Electronically Signed By: ARNOL PIÑA MD 11/05/20 1804 PATIENT NAME: ROMEROAALIYAH ION Electrocardiogram DATE OF : [birth year] PHYSICIAN: ARNOL PIÑA MD REPORT #: [id number] REPORT IS CONFIDENTIAL AND NOT TO BE RELEASED WITHOUT AUTHORIZATION
== END 2020-11-03 06:03 | disposition home or self-care (01) ==
LOC: ED 03:44
DX: J45.909 Unspecified asthma, uncomplicated (principal); I10 Essential (primary) hypertension; F17.200 Nicotine dependence, unspecified, uncomplicated; Z88.1 Allergy status to other antibiotic agents; Z88.2 Allergy status to sulfonamides; Z79.899 Other long term (current) drug therapy
CPT/HCPCS: 71045; 93005; 93010; 94640; 99285-25

== ENCOUNTER 2020-11-21 10:58 | Emergency (ER) | payer OTHER ==
[~2020-11-21] VITALS: Ht 175.3 cm; Wt 145.2 kg
--- NOTE | 2020-11-23 08:48 | EKG ---
[facility] [address] [facility] [place] [address] Signed Normal sinus rhythm Low voltage QRS Incomplete right bundle branch block Prolonged QT Abnormal ECG When compared with ECG of 03-NOV-2020 03:51, No significant change was found Confirmed by ARNOL PIÑA MD ([id number]) on 11/23/2020 8:48:13 AM Electronically Signed By: ARNOL PIÑA MD 11/23/20 0848 PATIENT NAME: ROMEROAALIYAH ION Electrocardiogram DATE OF : [birth year] PHYSICIAN: ARNOL PIÑA MD REPORT #: [id number] REPORT IS CONFIDENTIAL AND NOT TO BE RELEASED WITHOUT AUTHORIZATION
== END 2020-11-21 14:28 | disposition home or self-care (01) ==
LOC: ED 10:58
DX: R10.32 Left lower quadrant pain (principal); F15.90 Other stimulant use, unspecified, uncomplicated; I10 Essential (primary) hypertension; F17.200 Nicotine dependence, unspecified, uncomplicated; Z88.1 Allergy status to other antibiotic agents; Z88.2 Allergy status to sulfonamides; Z79.899 Other long term (current) drug therapy
CPT/HCPCS: 74177; 80053; 81001; 83605; 83735; 84484; 85025; 93005; 93010; 99285-25; J7030; Q9967

== ENCOUNTER 2021-12-20 00:17 | Emergency (ER) | payer OTHER ==
[~2021-12-20] VITALS: Ht 175.3 cm; Wt 113.4 kg
== END 2021-12-20 01:10 | disposition left against medical advice (07) ==
LOC: ED 00:17
DX: R07.9 Chest pain, unspecified (principal); F17.200 Nicotine dependence, unspecified, uncomplicated; Z88.1 Allergy status to other antibiotic agents; Z88.2 Allergy status to sulfonamides
CPT/HCPCS: 80053; 84484; 85025; 99283

== ENCOUNTER 2021-12-26 11:40 | Emergency (ER) | payer OTHER ==
[~2021-12-26] VITALS: Ht 175.3 cm; Wt 122.5 kg
== END 2021-12-26 14:11 | disposition home or self-care (01) ==
LOC: ED 11:40
DX: R07.9 Chest pain, unspecified (principal); F15.10 Other stimulant abuse, uncomplicated; I10 Essential (primary) hypertension; F17.200 Nicotine dependence, unspecified, uncomplicated; Z88.1 Allergy status to other antibiotic agents; Z88.2 Allergy status to sulfonamides
CPT/HCPCS: 36415; 80053; 81001; 84484; 85025; 93005; 93010; 99285-25

== ENCOUNTER 2023-04-25 16:06 | Emergency (ER) | payer OTHER ==
[~2023-04-25] VITALS: Ht 175.3 cm; Wt 118.4 kg
[2023-04-25] MEDS ORDERED: CLONIDINE HCL0.1 M1 PO (16:25)
[2023-04-25] MEDS ORDERED: MELATONIN 5 MG1 EACH PO (16:26)
[2023-04-25] MEDS ORDERED: TRAZODONE HCL100 MG PO (16:26)
[2023-04-25 16:55] LABS: BASOPHILS 0.6 % (0-2); EOSINOPHILS 0.5 % (0-6); HEMATOCRIT 53.8 % (35.0-50.0); HEMOGLOBIN 18.4 g/dL (12.0-18.0); LYMPHOCYTES 27.6 % (24-44); MCH 31.7 (27-36); MCHC 34.2 g/dl (30-36); MCV 92.5 fl (81-99); MONOCYTES 8.6 % (0-12); NEUTROPHILS 62.7 % (39-80); PLATELET COUNT 195 K/uL (140-440); RBC 5.81 M/ul (4.3-5.7); RDW 13.6 (10.5-15.0)
[2023-04-25 17:21] LABS: ALKALINE PHOSPHATASE 128 U/L (46-116); AST (SGOT) 52 U/L (15-37); BILIRUBIN, TOTAL 0.7 ng/dL (0.2-1.0); CARBON DIOXIDE 28 mmol/L (21-32); CHLORIDE 102 mmol/L (98-107); POTASSIUM 4.3 mmol/L (3.5-5.1)
[2023-04-25] MEDS ORDERED: ZYPREXA10 MG PO (19:18)
[2023-04-25 19:33] VITALS: BP 128/98
--- NOTE | 2023-04-26 06:00 | EKG ---
[facility] [address] [facility] [place] [address] Signed Normal sinus rhythm Left axis deviation Prolonged QT borderline first degree block Abnormal ECG When compared with ECG of 26-DEC-2021 11:40, No significant change was found Confirmed by PETERSON PARRA MD ([id number]) on 04/26/2023 6:00:37 AM Electronically Signed By: PETERSON PARRA 04/26/23 0600 PATIENT NAME: ROMEROAALIYAH ION Electrocardiogram DATE OF : [birth year] PHYSICIAN: PETERSON PARRA REPORT #: [id number] REPORT IS CONFIDENTIAL AND NOT TO BE RELEASED WITHOUT AUTHORIZATION
== END 2023-04-25 19:33 | disposition home or self-care (01) ==
LOC: ED 16:06
PROVIDERS: Emergency Medicine
DX: F11.23 Opioid dependence with withdrawal (principal); F41.9 Anxiety disorder, unspecified; F20.9 Schizophrenia, unspecified; I10 Essential (primary) hypertension; F17.200 Nicotine dependence, unspecified, uncomplicated; Z88.1 Allergy status to other antibiotic agents; Z88.2 Allergy status to sulfonamides; Z79.899 Other long term (current) drug therapy
CPT/HCPCS: 36415; 71045; 80053; 83735; 84484; 85025; 93005; 93010; 99285-25; A9270; A9270-GY; J3490

== ENCOUNTER 2024-11-15 11:27 | Emergency (ER) | payer OTHER ==
[~2024-11-15] VITALS: Ht 175.3 cm; Wt 100.5 kg
[~2024-11-15 11:27] MED LIST changes: +CLONIDINE HCL0.1 M1 PO; +MELATONIN 5 MG1 EACH PO; +TRAZODONE HCL100 MG PO
[2024-11-15 12:04] VITALS: BP 134/97
== END 2024-11-15 12:05 | disposition home or self-care (01) ==
LOC: ED 11:27
DX: N31.9 Neuromuscular dysfunction of bladder, unspecified (principal); F20.9 Schizophrenia, unspecified; I10 Essential (primary) hypertension; F17.200 Nicotine dependence, unspecified, uncomplicated; Z88.1 Allergy status to other antibiotic agents; Z88.2 Allergy status to sulfonamides; Z79.899 Other long term (current) drug therapy
CPT/HCPCS: 99283

== ENCOUNTER 2024-12-09 17:19 | Emergency (ER) | payer OTHER ==
[2024-12-09 17:32] VITALS: BP 00/00
== END 2024-12-09 17:25 | disposition left against medical advice (07) ==
LOC: ED 17:19
DX: R07.9 Chest pain, unspecified (principal); I10 Essential (primary) hypertension; F17.200 Nicotine dependence, unspecified, uncomplicated; Z88.2 Allergy status to sulfonamides; Z88.1 Allergy status to other antibiotic agents
CPT/HCPCS: 99284

== ENCOUNTER 2025-03-08 01:14 | Emergency (ER) | payer OTHER ==
[~2025-03-08] VITALS: Ht 175.3 cm; Wt 100.5 kg
--- OUTSIDE RECORDS SUMMARY | ~2025-03-08 | XMS | Continuity of Care Document ---
Demographics + + + | Address | [address] | | | [place] [address] | + + + | Preferred Language | Unknown | + + + | Marital Status | | + + + | Temple Affiliation | Unknown | + + + | Race | White | + + + | Ethnic Group | Not or | + + + Author + + + | Author | [facility] | + + + | Organization | [facility] | + + + | Address | [address] | | | [place] [address] | + + + | Phone | | + + + Care Team Providers + + + + | Care Post Anesthesia Care Unit Nurse Name | Role | Phone | + + + + Unavailable | Unavailable | + + + + Allergies No information. Encounters No information. Functional Status No information. Immunizations No information. Medications No information. Problems No information. Procedures No information. Results/Labs No information. Social History +--------+ + + | date | description | facility | +--------+ + + Vital Signs + + + +---------+ | date | measurement | value | units | + + + +---------+ | 2024-12-09 00:00 | BP_diastolic | 00 | mmHg | + + + +---------+ | 2024-12-09 00:00 | BP_systolic | 00 | mmHg | + + + +---------+ | 2024-12-09 00:00 | heart_rate | 00 | /min | + + + +---------+ | 2024-12-09 00:00 | o2_saturation | 0 | % | + + + +---------+ | 2024-12-09 00:00 | respiration_rate | 00 | /min | + + + +---------+ | 2024-12-09 00:00 | temperature_metric | -17.78 | C | | | | | | + + + +---------+ | 2024-12-09 00:00 | | 0 | F | | | temperature_standar | | | | | d | | | + + + +---------+"
[2025-03-08] MEDS ORDERED: ASPIRIN 81 MG CHEW PO ONE (01:30)
[2025-03-08 01:45] LABS: BASOPHILS 0.8 % (0.2-1.2); EOSINOPHILS 1.3 % (0.8-7.0); LYMPHOCYTES 27.7 % (21.8-53.1); MCH 31.0 PG (25.7-32.2); MCHC 32.7 g/dL (32.3-36.5); MCV 94.7 fL (79.0-92.2); MONOCYTES 11.9 % (5.3-12.2); NEUTROPHILS 57.4 % (34.0-67.9); RBC 4.68 M/uL (4.63-6.08)
[2025-03-08 02:11] LABS: ALT (SGPT) 55.0 U/L (14-59); AST (SGOT) 35.0 U/L (15-37); GLOMERULAR FILTRATION RATE,EST 112.0 mL/min (>60); PROTEIN, TOTAL 7.3 g/dL (6.4-8.2); UREA NITROGEN 18.0 mg/dL (7-18)
[2025-03-08] MEDS ORDERED: CYCLOBENZAPRINE10 MG PO (02:23)
[2025-03-08] MEDS ORDERED: COLACE100 MG PO (02:28)
[2025-03-08 02:46] VITALS: BP 104/75
--- NOTE | 2025-03-08 21:47 | EKG ---
[facility] [address] [place] [address] Signed Normal sinus rhythm Incomplete right bundle branch block Borderline ECG When compared with ECG of 04-MAY-2023 15:30, No significant change was found Confirmed by Christina Washburn MD () on 03/08/2025 9:47:12 PM Electronically Signed By: CHRISTINA WASHBURN MD 03/08/25 2147 PATIENT NAME: ROMEROAALIYAH LEMON Electrocardiogram DATE OF : [birth year] PHYSICIAN: CHRISTINA WASHBURN MD REPORT #: [id number] REPORT IS CONFIDENTIAL AND NOT TO BE RELEASED WITHOUT AUTHORIZATION
== END 2025-03-08 02:49 | disposition home or self-care (01) ==
LOC: ED 01:14
PROVIDERS: Family Medicine
DX: R07.2 Precordial pain (principal); F17.200 Nicotine dependence, unspecified, uncomplicated; Z88.2 Allergy status to sulfonamides; Z88.1 Allergy status to other antibiotic agents
CPT/HCPCS: 36415; 71045; 74018; 80053; 83735; 84484; 85025; 85379; 93005; 93010; 99285-25; A9270